=== PATIENT | female | born 1965 | race Caucasian/White ===

== ENCOUNTER 2017-01-27 08:28 | Inpatient (IN) | payer MEDICAID ==
[~2017-01-27] VITALS: Ht 175.3 cm; Wt 100.1 kg
[~2017-01-27 08:28] MED LIST: DICY10CA13 PO; LACT4500 PO; LOMO PO; PRIL20CA PO; Z.0.COMMODE-3:1; Z.0.WHEELELR
[2017-01-27 08:35] VITALS: BP 142/83; PULSE 100; RESP 24; TEMP 97.8; O2SAT 97
[2017-01-27] MEDS ORDERED: SODIUM CHLOR 0.9% 1000 ML INJ 1,000 ML IV SCH ×2 (08:40→10:25)
[2017-01-27] MEDS ORDERED: KETOROLAC TROMETHAMINE 30 MG/ML (IVP) VIAL IVP ONE (08:45)
[2017-01-27] MEDS ORDERED: SODIUM CHLORIDE 0.9% FLUSH 5 ML FLUSH IVF PRN (08:45)
[2017-01-27] MEDS ORDERED: ONDANSETRON HCL 4 MG/2 ML VIAL IVP ONE (08:45)
--- NOTE | 2017-01-27 08:50 | PD ---
HPI Chief Complaint: Abdominal pain Time Seen by Provider: 08:50 Travel History International Travel<30 days: No (unknown) Contact w/Intl Traveler<30days: No (unknown) History of Present Illness HPI 51yo F with PMH of gastroparesis, DM, osteomyelitis of left foot s/p amputation , CKD stage IV, GERD, depression presents to the ED with c/o abdominal pain for 3 days. Pain started off as cramping and is generalized. Pt took her friend's tramadol yesterday and it relieved her pain. +NBNB vomiting. Pt states she has chronic diarrhea. +Chills. Denies any chest pain, sob, urinary complaints , vaginal bleeding or discharge. PFSH Past Medical History Anemia: Yes (IRON DEFICIENCY) Arthritis: Yes Asthma: Yes Anxiety: Yes Depression: Yes Cancer: No Cardiovascular Problems: No Diabetes: Yes Diminished Hearing: No Gastrointestinal Disorders: Yes (gastroparesis) GERD: Yes Gout: Yes Headaches: Yes Immune Disorder: No Kidney Stones: Yes Musculoskeletal: Yes Neurologic: Yes (NEUROPATHY) Psychiatric: Yes ("i have mental problems but I don't know what they are") Respiratory: Yes (ASTHMA, HX PNEUMONIA) Migraines: Yes Pneumonia: Yes Seizures: No Sickle Cell Disease: No Menopausal: Yes Past Surgical History AICD: No Arteriovenous Shunt: No Genitourinary Surgery: Yes (LITHOTRIPSY) Insulin Pump: No Joint Replacement: No Oral Surgery: Yes (TONSILLECTOMY) Pacemaker: No Tonsillectomy: Yes Other Surgery: Yes (right great toe/ left foot great toe and second toe amputation) Social History Alcohol Use: No Tobacco Use: No Substance Use: No Allergies-Medications (Allergen,Severity, Reaction): Coded Allergies: Sinequan (Verified Allergy, Severe, HIVES, 09/05/14) Codeine (Verified Adverse Reaction, Severe, NAUSEA/VOMITING, 09/05/14) *MDRO Multi-Drug Resistant Organism (Unverified Adverse Reaction, Unknown , 09/05/14) MRSA Reported Meds & Prescriptions Reported Meds & Active Scripts Active Wheelchair Elevated Leg Rest ([id number]) Device 1 Unit Reported Benadryl Allergy (Diphenhydramine HCl) 25 Mg Cap Cimetidine 200 Mg Tab 200 Mg PO Lactaid (Lactase) 3,000 Unit Tab Review of Systems Except as stated in HPI: all other systems reviewed are Neg Physical Exam Narrative GENERAL: 51yo F not in acute distress. Morbidly obese. SKIN: Warm and dry. HEAD: Atraumatic. Normocephalic. EYES: Pupils equal and round. No scleral icterus. No injection or drainage. ENT: No nasal bleeding or discharge. Mucous membranes pink and moist. NECK: Trachea midline. No JVD. CARDIOVASCULAR: Regular rate and rhythm. No murmur appreciated. RESPIRATORY: No accessory muscle use. Clear to auscultation. Breath sounds equal bilaterally. GASTROINTESTINAL: Abdomen soft, +TTP epigastric region. No rebound tenderness or guarding. MUSCULOSKELETAL: No obvious deformities. No clubbing. No cyanosis. No edema. NEUROLOGICAL: Awake and alert. No obvious cranial nerve deficits. Motor grossly within normal limits. Normal speech. PSYCHIATRIC: Appropriate mood and affect; insight and judgment normal. Data Data Last Documented VS Vital Signs Date Time Temp Pulse Resp B/P Pulse Ox O2 Delivery O2 Flow Rate FiO2 01/27/17 08:35 97.8 100 24 142/83 97 Orders Complete Blood Count With Diff (01/27/17 08:40) Comprehensive Metabolic Panel (01/27/17 08:40) Lipase (01/27/17 08:40) Lactic Acid (01/27/17 08:40) Prothrombin Time / Inr (Pt) (01/27/17 08:40) Act Partial Throm Time (Ptt) (01/27/17 08:40) Urinalysis - C+S If Indicated (01/27/17 08:40) Ct Abd/Pel W/O Iv Contrast (01/27/17 08:40) Iv Access Insert/Monitor (01/27/17 08:40) Ecg Monitoring (01/27/17 08:40) Oximetry (01/27/17 08:40) Ondansetron Inj (Zofran Inj) (01/27/17 08:45) Sodium Chlor 0.9% 1000 Ml Inj (Ns 1000 M (01/27/17 08:40) Sodium Chloride 0.9% Flush (Ns Flush) (01/27/17 08:45) Electrocardiogram (01/27/17 08:40) Ketorolac Inj (Toradol Inj) (01/27/17 08:45) Ed Urine Pregnancytest Poc (01/27/17 08:40) Bhcg Screen Qualitative (01/27/17 08:40) Troponin I (01/27/17 08:45) Admit Order (Ed Use Only) (01/27/17 10:17) Consult Nephrology (01/27/17 ) Labs Laboratory Tests Test 01/27/17 01/27/17 08:45 10:00 White Blood Count 10.2 TH/MM3 Red Blood Count 4.77 MIL/MM3 Hemoglobin 12.9 GM/DL Hematocrit 39.4 % Mean Corpuscular Volume 82.7 FL Mean Corpuscular Hemoglobin 27.1 PG Mean Corpuscular Hemoglobin 32.8 % Concent Red Cell Distribution Width 15.1 % Platelet Count 256 TH/MM3 Mean Platelet Volume 10.1 FL Neutrophils (%) (Auto) 80.3 % Lymphocytes (%) (Auto) 13.7 % Monocytes (%) (Auto) 5.4 % Eosinophils (%) (Auto) 0.1 % Basophils (%) (Auto) 0.5 % Neutrophils # (Auto) 8.2 TH/MM3 Lymphocytes # (Auto) 1.4 TH/MM3 Monocytes # (Auto) 0.5 TH/MM3 Eosinophils # (Auto) 0.0 TH/MM3 Basophils # (Auto) 0.1 TH/MM3 CBC Comment DIFF FINAL Differential Comment Prothrombin Time 11.7 SEC Prothromb Time International 1.1 RATIO Ratio Activated Partial 24.3 SEC Thromboplast Time Sodium Level 134 MEQ/L Potassium Level 4.4 MEQ/L Chloride Level 92 MEQ/L Carbon Dioxide Level 24.0 MEQ/L Anion Gap 18 MEQ/L Blood Urea Nitrogen 57 MG/DL Creatinine 6.82 MG/DL Estimat Glomerular Filtration 6 ML/MIN Rate Random Glucose 137 MG/DL Lactic Acid Level 4.8 mmol/L Calcium Level 8.5 MG/DL Total Bilirubin 0.7 MG/DL Aspartate Amino Transf 14 U/L (AST/SGOT) Alanine Aminotransferase 13 U/L (ALT/SGPT) Alkaline Phosphatase 113 U/L Troponin I LESS THAN 0.02 NG/ML Total Protein 9.9 GM/DL Albumin 3.9 GM/DL Lipase 207 U/L Beta HCG, Qualitative 2 MIU/ML Urine Color YELLOW Urine Turbidity CLOUDY Urine pH 6.0 Urine Specific [place] 1.018 Urine Protein 300 mg/dL Urine Glucose (UA) NEG mg/dL Urine Ketones NEG mg/dL Urine Occult Blood SMALL Urine Nitrite NEG Urine Bilirubin NEG Urine Urobilinogen 2.0 MG/DL Urine Leukocyte Esterase LARGE Urine RBC 42 /hpf Urine WBC /hpf Urine WBC Clumps MANY Urine Squamous Epithelial 5 /hpf Cells Urine Bacteria MANY /hpf Microscopic Urinalysis Comment CATH-CULTURE IND MDM Medical Decision Making Medical Screen Exam Complete: Yes Emergency Medical Condition: Yes Interpretation(s) EKG: NSR 93bpm. LAD. TWI aVL. Pt with 1mm ST elevation in the inferior leads , II, III, aVF. No reciprocal changes. No chest pain. Differential Diagnosis Gastroenteritis vs. pancreatitis vs. gastritis Narrative Course 51yo female with abdominal pain, vomiting for a few days. Labs reviewed, no leukocytosis. Neutrophil 80.3%. BUN/creatinine is elevated at 57/6.82. Pt had CKD disease from the note in 2013 but creatinine was 2.08 in 2013. Pt states she is still urinating fine. States she has not seen a weatherization installer or follow up with primary care for a long time. Lactic acid is elevated at 4.8. Pt denies any metformin use and does not take anything for diabetes. Pt has received 1 liter of NS IVF. Elevated lactate secondary to sepsis is also in the differential. UA positive for leukocyte, given ceftriaxone. There are EKG changes concerning for ischemia but does not meet STEMI criteria. Troponin negative. Pt has no chest pain. Will trend with serial EKG, cardiac enzyme. Pt reevaluated at bedside. Pt given zofran and toradol and abdominal pain has resolved. Abdomen is soft, obese. States that if I press really hard, it hurts but not tender on light palpation. No rebound tenderness or guarding. Discussed with resident physicians and admitted to their service. CTa/p significant for gallstone ileus with obstruction. Upon further questioning, pt had last had bowel movement 3-4 days ago. Last vomiting was 3am today and is having flatus. Pt had last ate/drank yesterday morning. Discussed with Dr. Bridges who will come evaluate the patient. Also informed resident physician. Critical Care Narrative Aggregate critical care time was 50 minutes. Time to perform other separately billable procedures was not included in the critical care time. My time did not include minutes spent treating any other patients simultaneously or on activities that did not directly contribute to the patient's treatment. The services I provided to this patient were to treat and/or prevent clinically significant deterioration that could result in: cardiovascular collapse or . I provided critical care services requiring my management, as noted below: Chart data review, documentation time, medication orders and management, vital sign assessments/reviewing monitor data, ordering and reviewing lab tests, ordering and interpreting/reviewing x-rays and diagnostic studies, care of the patient and discussion of the patient with the admitting physicians. Diagnosis Primary Impression: Acute on chronic kidney failure Additional Impression: Gallstone ileus Admitting Information Admitting Physician Requests: Admit Megan Roach DO Jan 27, 2017 08:50 Megan Roach DO Jan 27, 2017 08:50
[2017-01-27] MEDS ORDERED: LACT3000 (08:55)
[2017-01-27] MEDS ORDERED: CIME200T PO (08:56)
[2017-01-27] MEDS ORDERED: BENA25CA4 (08:58)
[2017-01-27 09:00] LABS: AUTOMATED NEUTROPHIL # 8.2 TH/MM3 (1.8-7.7); BASOPHIL # 0.1 TH/MM3 (0-0.2); BASOPHIL % 0.5 % (0.0-2.0); EOSINOPHIL % 0.1 % (0.0-4.0); HEMATOCRIT 39.4 % (35.0-46.0); HEMO FLAGS DIFF FINAL; LYMPH % 13.7 % (9.0-44.0); LYMPHOCYTE # 1.4 TH/MM3 (1.0-4.8); MEAN CELL VOLUME 82.7 FL (80.0-100.0); MEAN CORPUSCULAR HEMOGLOBIN 27.1 PG (27.0-34.0); MEAN CORPUSCULAR HGB CONC 32.8 % (32.0-36.0); MONO % 5.4 % (0.0-8.0); NEUT % 80.3 % (16.0-70.0); PLATELET COUNT 256 TH/MM3 (150-450); RED BLOOD COUNT 4.77 MIL/MM3 (4.00-5.30); RED CELL DISTRIBUTION WIDTH 15.1 % (11.6-17.2); WHITE BLOOD COUNT 10.2 TH/MM3 (4.0-11.0)
[2017-01-27 09:14] LABS: APTT (PATIENT) 24.3 SEC (24.3-30.1); INTERNATIONAL NORMALIZED RATIO 1.1 RATIO; PROTHROMBIN TIME - PATIENT 11.7 SEC (9.8-11.6)
[2017-01-27 09:20] LABS: ANION GAP 18 MEQ/L (5-15); AST (GOT) 14 U/L (15-37); BLOOD UREA NITROGEN 57 MG/DL (7-18); CHLORIDE 92 MEQ/L (98-107); GLOMERULAR FILTRATION RATE 6 ML/MIN (>89); POTASSIUM 4.4 MEQ/L (3.5-5.1); SODIUM (NA) 134 MEQ/L (136-145)
[2017-01-27 09:25] LABS: ALKALINE PHOSPHATASE 113 U/L (45-117); ALT (GPT) 13 U/L (10-53); TOTAL BILIRUBIN ADULT 0.7 MG/DL (0.2-1.0)
[2017-01-27 09:28] LABS: BHCG SCREEN QUALITATIVE 2 MIU/ML (0-5)
[2017-01-27 10:28] LABS: BACTERIA, URINE MANY /hpf; BLOOD, URINE SMALL (NEG); COMMENT (UR) CATH-CULTURE IND; CULTURE IF INDICATED CATH CULTURE IND; GLUCOSE,URINE NEG (NEG); KETONE, URINE NEG (NEG); NITRITE,URINE NEG (NEG); SQUAMOUS EPITHELIAL CELL URINE 5 /hpf (0-5); URINE COLOR YELLOW (YELLW/STRAW)
[2017-01-27] MEDS ORDERED: METOCLOPRAMIDE HCL 10 MG/2 ML VIAL IV PUSH PRN (10:30)
[2017-01-27] MEDS ORDERED: ACETAMINOPHEN 325 MG TAB PO PRN (10:30)
[2017-01-27] MEDS ORDERED: NALOXONE HCL 0.4 MG/ML AMP IV PRN ×2 (10:30→11:00)
[2017-01-27] MEDS: HEPARIN SODIUM - SQ 10,000 UNITS/ML VIAL SQ SCH (10:30)
--- NOTE | 2017-01-27 10:31 | HHI.HP ---
HPI Service Family Medicine Primary Care Physician No Primary Care Physician Admission Diagnosis Acute on chronic kidney failure, lactic acidosis Diagnoses: International Travel<30 Days: No Contact w/Intl Traveler<30days: No Known Affected Area: No History of Present Illness Ms. Marie is a 51 y/o CF with a PMHx of T2DM, CKD, and osteomyelitis s/p L forefoot amputations presenting with 2 days of ABD pain and vomiting. She states that she has had 4-5 episodes of vomiting over each of the last 2 days. She describes the emesis as bilious without food particles or blood. She also endorses crampy, widespread abdominal pain lasting over these last 2 days which she attributes to constantly vomiting. She also states that she's had nausea with intermittent fever and chills, but has not taken her temperature. She states that she has not had much to eat over the last couple of days, but has been drinking appropriately. She does state that her roommate has had similar symptoms within the last week. Otherwise she has no complaints and denies any chest pain, shortness of breath, or calf tenderness. Of note, she currently does not take any medications for her DM. She states that she does check her BG daily and has been running 110-150 which is elevated from her baseline according to her. She is aware that she has CKD, but does not see a management coordinator. She denies any recent NSAID use or any OTC medications other than her prescribed Cimetidine. (Alli Chaparro MD R1) Review of Systems Constitutional: COMPLAINS OF: Fever, Chills Endocrine: DENIES: Polyuria Eyes: DENIES: Blurred vision Ears, nose, mouth, throat: DENIES: Throat pain Respiratory: DENIES: Cough, Shortness of breath Cardiovascular: DENIES: Chest pain, Palpitations Gastrointestinal: COMPLAINS OF: Abdominal pain, Diarrhea (Baseline ), Nausea, Vomiting Genitourinary: DENIES: Dysuria Musculoskeletal: DENIES: Joint pain Integumentary: DENIES: Rash Hematologic/lymphatic: DENIES: Lymphadenopathy Immunologic/allergic: DENIES: Urticaria Neurologic: DENIES: Headache (Alli Chaparro MD R1) Past Family Social History Past Medical History Gastroparesis Type 2 DM Osteomyelitis of L foot s/p amputation CKD stage 4 GERD Depression Iron deficiency anemia Asthma Unknown behavioral problems Migraines Kidney stones Past Surgical History Lithotripsy Tonsillectomy L forefoot amputation (Alli Chaparro MD R1) Allergies: Coded Allergies: Sinequan (Verified Allergy, Severe, HIVES, 09/05/14) Codeine (Verified Adverse Reaction, Severe, NAUSEA/VOMITING, 09/05/14) *MDRO Multi-Drug Resistant Organism (Unverified Adverse Reaction, Unknown , 09/05/14) MRSA Family History Mom - arrhythmia Father - Bladder cancer Brother - healthy Social History Lives in [place] with mother and friend. On disability for health condition. Smoke - Denies Alcohol - Denies Illicit - Denies Full Code (Alli Chaparro MD R1) Physical Exam Vital Signs Vital Signs Date Time Temp Pulse Resp B/P Pulse Ox O2 Delivery O2 Flow Rate FiO2 01/27/17 08:35 97.8 100 24 142/83 97 Physical Exam GENERAL: 51 y/o obese CF lying in bed in NAD SKIN: Patches of ilia under pannus flaps. Multiple scratches on back and LE. No rashes or ecchymosis. HEENT: Atraumatic, normocephalic with EOMI. PERRLA. Oropharynx clear without exudate or erythema. Mucus membranes dry. No LAD. Trachea midline without thyromegaly. No rhinorrhea. CARDIOVASCULAR: Regular rate and rhythm without murmurs, gallops, or rubs. RESPIRATORY: CTAB with no CRW. No increased WOB. GASTROINTESTINAL: Abdomen soft, mildly distended with tenderness to palpation in all 4 quadrants. No rebound tenderness/guarding. Hypoactive bowel sounds. MUSCULOSKELETAL: Extremities without cyanosis or edema. No calf tenderness. L foot with forefoot amputation, stump CDI. 2+ pulses in all 4 ext. NEUROLOGICAL: Awake and alert. Normal speech. Laboratory Laboratory Tests Test 01/27/17 08:45 White Blood Count 10.2 Red Blood Count 4.77 Hemoglobin 12.9 Hematocrit 39.4 Mean Corpuscular Volume 82.7 Mean Corpuscular Hemoglobin 27.1 Mean Corpuscular Hemoglobin 32.8 Concent Red Cell Distribution Width 15.1 Platelet Count 256 Mean Platelet Volume 10.1 Neutrophils (%) (Auto) 80.3 Lymphocytes (%) (Auto) 13.7 Monocytes (%) (Auto) 5.4 Eosinophils (%) (Auto) 0.1 Basophils (%) (Auto) 0.5 Neutrophils # (Auto) 8.2 Lymphocytes # (Auto) 1.4 Monocytes # (Auto) 0.5 Eosinophils # (Auto) 0.0 Basophils # (Auto) 0.1 CBC Comment DIFF FINAL Differential Comment Prothrombin Time 11.7 Prothromb Time International 1.1 Ratio Activated Partial 24.3 Thromboplast Time Sodium Level 134 Potassium Level 4.4 Chloride Level 92 Carbon Dioxide Level 24.0 Anion Gap 18 Blood Urea Nitrogen 57 Creatinine 6.82 Estimat Glomerular Filtration 6 Rate Random Glucose 137 Lactic Acid Level 4.8 Calcium Level 8.5 Total Bilirubin 0.7 Aspartate Amino Transf 14 (AST/SGOT) Alanine Aminotransferase 13 (ALT/SGPT) Alkaline Phosphatase 113 Troponin I LESS THAN 0.02 Total Protein 9.9 Albumin 3.9 Lipase 207 Beta HCG, Qualitative 2 (Alli Chaparro MD R1) Result Diagram: 01/27/1784401/27/17844 Assessment and Plan Assessment and Plan Ms. Marie is a 51 y/o CF with a PMHx of T2DM, CKD, and osteomyelitis s/p L forefoot amputations presenting with 2 days of ABD pain and vomiting. She will be admitted for gallstone ileus, acute on chronic kidney disease, and L renal stone. Code Status FULL Discussed Condition With Dr. Roach, ER physician Dr. Duane Aguilar (Alli Chaparro MD R1) Attending Attestation Patient seen and examined. Case reviewed and discussed with the resident team. Agree with plan of care as discussed with me and documented in the resident note. pt seen in ED, appreciate help Nephrology and Surgery (Angelique Zepeda MD) Problem List: (1) Gallstone ileus Status: Acute Plan: Patient will 2 days of bilious vomiting and subjective fever/chills found to have gallstone ileus on CT exam. Per discussion with Dr. Roach, ER physician, she will consult general surgery for possible procedure. CT: Probable gallstone ileus. Status post seen on series 304, image 42. Nonobstructing left renal stone and very small kidney. There is a small amount of air in the collecting system of the L kidney. Lactic acid of 4.8 with no leukocytosis and subjective fevers -Tbili 0.7 Consult General Surgery: Appreciate recommendations, patient made NPO and Heparin held. Medications: Toradol 30 mg given once in ER Tylenol 650 mg for pain 1-2 Eagar 5 mg for pain 3-5 Eagar 10 mg for pain 6-10 Reglan 2.5 mg every 6 hours when necessary for nausea or vomiting (2) Acute on chronic kidney failure Status: Acute Plan: Patient with stage IV kidney disease currently not seen by nephrology and not on hemodialysis. Per chart review patient's last creatinine baseline in 2013 ranges from 1.84 - 2.3. CMP on admission: BUN 57, creatinine 6.8 to, GFR 6 Lactic acid 4.8 UA: Protein 300, small occult blood, large leukocyte esterase, 42 RBC, many WBC climps, many bacteria Nephrology consulted: Appreciate recommendations Medications: Normal saline 125 mL per hour (3) Kidney stone on left side Status: Acute Plan: Patient with history of renal stones found to have small left renal stone on CT. Renal ultrasound: Pending Please see plan as above (4) Abnormal finding on EKG Status: Acute Plan: Patient found to have Q waves on EKG. Patient is currently asymptomatic and denies any recent chest pain, palpitations, or SOB. Medical team will proceed with ACS rule out. Troponin: <0.02, x2 pending (1200, 1500) EKG: L axis deviation with Q waves per Medical Team read. Repeat 2 pending ( 1200, 1500) Telemetry Echo: Pending (5) Ilia infection Status: Acute Plan: Patient found to have Ilia infection on pannus folds and anal region Topical nystatin to be applied to infected areas every 8 hours (6) Diabetes mellitus Status: Chronic Plan: Patient with history of diabetes mellitus. States her baseline BG is 110 to 150s and is currently not on any medication. Scale insulin per protocol (7) Asthma Status: Chronic Plan: Patient with history of asthma Albuterol 2.5 mg every 2 hours when necessary for shortness of breath or wheezing (8) Nutrition, metabolism, and development symptoms Status: Acute Plan: Fluids: NS at 125ml/hr Electrolytes: Sodium 134, Glucose 137, continue to monitor Diet: NPO in preparation for possible procedure today GI prophylaxis: Protonix, held home Cimetidine and Lactase DVT prophylaxis: Heparin held for possible procedure today HTN: Vasotec PRN (Alli Chaparro MD R1) Physician Certification 2 Midnight Certification Type: Admission for Inpatient Services Order for Inpatient Services The services are ordered in accordance with Medicare regulations or non- Medicare payer requirements, as applicable. In the case of services not specified as inpatient-only, they are appropriately provided as inpatient services in accordance with the 2-midnight benchmark. Estimated LOS (days): 3 3 days is the estimated time the patient will need to remain in the hospital, assuming treatment plan goals are met and no additional complications. Post-Hospital Plan: Home (Alli Chaparro MD R1) Problem Qualifiers (1) Diabetes mellitus: Qualified Code: E11.620 - Type 2 diabetes mellitus with diabetic dermatitis, without long-term current use of insulin (2) Asthma: Qualified Code: J45.909 - Uncomplicated asthma, unspecified asthma severity Alli Chaparro MD R1 Jan 27, 2017 10:31 Angelique Zepeda MD Jan 28, 2017 16:04
[2017-01-27] MEDS ORDERED: GLUCAGON 1 MG/ML VIAL OTHER PRN (10:45)
[2017-01-27] MEDS ORDERED: DEXTROSE 50% IN WATER 50 ML VIAL(D50) IV PUSH PRN (10:45)
[2017-01-27] MEDS ORDERED: cefTRIAXone INJ 1,000 MG in SODIUM CHLORIDE 0.9% INJ 100 ML IV ONE (11:00)
[2017-01-27] MEDS: INSULIN ASPART SUPPLEMENTAL SCALE SQ SCH ×3 (11:00→21:00)
[2017-01-27] MEDS ORDERED: RESP: ALBUTEROL 2.5 MG/3 ML NEB (PRN) NEB (11:00)
--- NOTE | 2017-01-27 11:42 | RADRPT ---
EXAM DATE/TIME: 01/27/2017 10:15 [facility] COMPARISON: No previous studies available for comparison. INDICATIONS: Epigastric abdominal pain with vomiting. ORAL CONTRAST: No oral contrast ingested. RADIATION DOSE: 36.06 CTDIvol (mGy) MEDICAL HISTORY: Gastroparesis. Gastroesophageal reflux disease. Renal calculi. Diabetes. Asthma. SURGICAL HISTORY: Lithotripsy. ENCOUNTER: Initial ACUITY: 3 days PAIN SCALE: 6/10 LOCATION: Upper quadrant TECHNIQUE: Volumetric scanning of the abdomen and pelvis was performed. Using automated exposure control and ad justment of the mA and/or kV according to patient size, radiation dose was kept as low as reasonably achievable to obtain optimal diagnostic quality images. FINDINGS: Lung bases are clear. There is minimal air in the biliary tree. Patient has had a previous sphincte rotomy, this is a normal finding. The stomach is distended with a large air fluid level present. Spleen is unremarkable. Kidneys are small and shrunken. There is dilatation of proximal small bowel when compared to distal. There is a calcification in the mid small bowel at zone of transition. This probably represents a gallstone ileus which would account for the patient's are in the biliary tree and gallbladder which is decompressed. There is a non-obstructing calculus in the small left kidney with a small amount of air in the collec ting system. Pelvic contents are unremarkable. CONCLUSION: 1. Probable gallstone ileus. Stone is best seen on series 304, image 42. 2. Non-obstructing left renal stone in very small kidney. There is a small amount of air in the col lecting system of the left kidney. David Brooke MD FACR on January 27, 2017 at 11:09 Board Certified Radiologist. This report was verified electronically.
[2017-01-27] MEDS ORDERED: ACETAMINOPHEN/HYDROcodone 325 MG/5 MG TAB PO PRN (12:00)
[2017-01-27 12:56] LABS: CREATINE KINASE 257 U/L (26-192)
[2017-01-27 13:09] LABS: CKMB 3.6 NG/ML (0.5-3.6)
--- NOTE | 2017-01-27 13:16 | RADRPT ---
EXAM DATE/TIME: 01/27/2017 12:08 [facility] COMPARISON: CT ABDOMEN & PELVIS W/O CONTRAST, January 27, 2017, 10:15. US KIDNEY/RENAL/BLADDER, June 06, 2014, 10: 27. INDICATIONS : Increased BUN/Creatinine, abnormal CT. MEDICAL HISTORY : Hypertension. Thyroid disease. Neuropathy. Migraine. Gastroparesis. GERD. Diabetes. SURGICAL HISTORY : Tonsillectomy. Toes amuptated, left foot. Lithotripsy. ENCOUNTER: Initial ACUITY: 1 day PAIN SCORE: 0/10 LOCATION: Bilateral flank MEASUREMENTS: RIGHT KIDNEY: 9.1 x 4.1 x 4.0 cm LEFT KIDNEY: 9.3 x 5.1 x 4.8 cm FINDINGS: RIGHT KIDNEY: Renal cortex is normal in thickness and increased echotexture. No hydronephrosis, stone, or mass. LEFT KIDNEY: Renal cortex is normal in thickness and increased echotexture. Echogenic shadowing focus lower pole l eft kidney measures 21 x 8 x 19 mm. No hydronephrosis or mass. BLADDER: Bladder not visualized. Many dilated bowel loops and shadowing obscures bladder. CONCLUSION: 1. Echogenic kidneys which can be seen with medical renal disease. 2. Nonobstructing calculus measures 2.1 cm in the lower pole left kidney. 3. Nonvisualization of the bladder. There is air in the bladder on most recent CT scan of the abdomen /pelvis. This could be infectious and likely the main reason cannot visualize bladder. Anselmo Shelton MD on January 27, 2017 at 13:05 Board Certified Radiologist. This report was verified electronically.
[2017-01-27] MEDS ORDERED: ENALAPRILAT 1.25 MG/ML VIAL IV PRN (13:45)
[2017-01-27] MEDS: NYSTATIN 100,000 U/GM PWD 15 GM BTL TOPICAL SCH ×2 (14:00→21:50)
[2017-01-27] MEDS: DEXT 5%-NACL 0.45% 1000 ML INJ 1,000 ML IV SCH ×2 (14:10→21:47)
--- NOTE | 2017-01-27 14:13 | PD.CONS ---
cc: Eduardo Bridges MD HPI Service General Surgery Consult Requested By Dr. Roach Reason for Consult Severe abdominal pain; GS ileus visualized on CT scan Primary Care Physician No Primary Care Physician History of Present Illness This is a 51 year old male with a past medical history of type 2 diabetes mellitus, chronic kidney disease stage IV, osteomyelitis, gastroparesis, and GERD. She comes in the emergency room for evaluation after having abdominal pain for 2 days, cramping pain, constant, no alleviating, or exacerbating factors, 6/10 pain, currently 3/10, worse with movement with nausea and vomiting. Her last episode of vomiting was at 3 AM this morning. The patient reports that she has chronic diarrhea ever so often due to her gastroparesis. The patient reports her last bowel movement being 3 days ago which was normal for her. She states during the exam that she is feeling nauseous because she has not eaten. Her last meal was yesterday morning. A CAT scan was obtained which showed a gallstone ileus. She reports she has never had problems with her gallbladder or any dietary intolerance. A general surgery consultation was requested to evaluate for gallstone ileus. Review of Systems Constitutional: DENIES: Fatigue, Fever, Weight gain Endocrine: DENIES: Heat/cold intolerance Eyes: DENIES: Diplopia, Eye inflammation, Eye pain Ears, nose, mouth, throat: DENIES: Hearing loss, Vertigo Respiratory: DENIES: Apneas, Cough, Snoring Cardiovascular: DENIES: Chest pain, Palpitations Gastrointestinal: COMPLAINS OF: Abdominal pain, Diarrhea Genitourinary: DENIES: Urinary frequency, Urinary incontinence, Urgency Musculoskeletal: DENIES: Muscle aches, Stiffness Integumentary: DENIES: Abnormal pigmentation Hematologic/lymphatic: DENIES: Bruising Immunologic/allergic: DENIES: Eczema Neurologic: DENIES: Headache, Localized weakness Psychiatric: DENIES: Depression, Hallucinations, Agitation Past Family Social History Past Medical History Type 2 diabetes mellitus Chronic kidney disease stage IV Osteomyelitis Gastroparesis GERD Past Surgical History Left midfoot amputation Reported Medications See chart Allergies: Coded Allergies: Sinequan (Verified Allergy, Severe, HIVES, 09/05/14) Codeine (Verified Adverse Reaction, Severe, NAUSEA/VOMITING, 09/05/14) *MDRO Multi-Drug Resistant Organism (Unverified Adverse Reaction, Unknown , 02/02/17) MRSA (foot) - 06/29/11, 08/04/11 MRSA PCR Screens NEGATIVE - 01/30/17 & 02/01/17 CLEARED BY INFECTION CONTROL Active Ordered Medications Current Medications Medications (Trade) Dose Ordered Sig/Jaylen Route Start Time Stop Time Status Last Admin (NS Flush) 2 ml UNSCH PRN FLUSH 01/27/17 10:30 (NS Flush) 2 ml BID FLUSH 01/27/17 21:00 (Reglan Inj) 2.5 mg Q6H PRN IV PUSH 01/27/17 10:30 (Heparin Inj) 5,000 units Q8H SQ 01/27/17 10:30 Hold (Tylenol) 650 mg Q6H PRN PO 01/27/17 10:30 (D50w (Vial) Inj) 25 ml UNSCH PRN IV PUSH 01/27/17 10:45 (Glucagon Inj) 1 mg UNSCH PRN OTHER 01/27/17 10:45 ([place] 5-325 Mg) 1 tab Q4H PRN PO 01/27/17 12:00 ([place] 10-325 Mg) 1 tab Q4H PRN PO 01/27/17 12:00 (Narcan Inj) 0.4 mg UNSCH PRN IV 01/27/17 11:00 Nystatin 1 applic 1 applic Q8HR TOPICAL 01/27/17 14:00 (D5W-1/2 NS 1000 ml Inj) 1,000 ml @ 125 mls/hr Q8H IV 01/27/17 13:30 (Vasotec Inj) 1.25 mg Q6H PRN IV 01/27/17 13:45 (Protonix Inj) 40 mg Q24H IV PUSH 01/27/17 14:00 Family History Noncontributory Social History Denies smoking Denies EtOH use Denies illicit drug use Physical Exam Vital Signs Vital Signs Date Time Temp Pulse Resp B/P Pulse Ox O2 Delivery O2 Flow Rate FiO2 01/27/17 08:35 97.8 100 24 142/83 97 Physical Exam GENERAL: Obese female resting in bed in no acute distress SKIN: Warm and dry. HEAD: Atraumatic. Normocephalic. EYES: Pupils equal and round. No scleral icterus. No injection or drainage. ENT: No nasal bleeding or discharge. Mucous membranes pink and moist. NECK: Trachea midline. CARDIOVASCULAR: Regular rate and rhythm. RESPIRATORY: No accessory muscle use. Clear to auscultation. Breath sounds equal bilaterally. GASTROINTESTINAL: Abdomen soft, mildly distended; tender with palpation at epigastric region and RUQ. MUSCULOSKELETAL: Extremities without clubbing, cyanosis, or edema. No obvious deformities. LEFT midfoot amputation. NEUROLOGICAL: Awake and alert. No obvious cranial nerve deficits. Motor grossly within normal limits. Five out of 5 muscle strength in the arms and legs. Normal speech. PSYCHIATRIC: Appropriate mood and affect; insight and judgment normal. Laboratory Laboratory Tests Test 01/27/17 01/27/17 01/27/17 08:45 10:00 12:07 White Blood Count 10.2 Red Blood Count 4.77 Hemoglobin 12.9 Hematocrit 39.4 Mean Corpuscular Volume 82.7 Mean Corpuscular Hemoglobin 27.1 Mean Corpuscular Hemoglobin 32.8 Concent Red Cell Distribution Width 15.1 Platelet Count 256 Mean Platelet Volume 10.1 Neutrophils (%) (Auto) 80.3 Lymphocytes (%) (Auto) 13.7 Monocytes (%) (Auto) 5.4 Eosinophils (%) (Auto) 0.1 Basophils (%) (Auto) 0.5 Neutrophils # (Auto) 8.2 Lymphocytes # (Auto) 1.4 Monocytes # (Auto) 0.5 Eosinophils # (Auto) 0.0 Basophils # (Auto) 0.1 CBC Comment DIFF FINAL Differential Comment Prothrombin Time 11.7 Prothromb Time International 1.1 Ratio Activated Partial 24.3 Thromboplast Time Sodium Level 134 Potassium Level 4.4 Chloride Level 92 Carbon Dioxide Level 24.0 Anion Gap 18 Blood Urea Nitrogen 57 Creatinine 6.82 Estimat Glomerular Filtration 6 Rate Random Glucose 137 Lactic Acid Level 4.8 Calcium Level 8.5 Total Bilirubin 0.7 Aspartate Amino Transf 14 (AST/SGOT) Alanine Aminotransferase 13 (ALT/SGPT) Alkaline Phosphatase 113 Troponin I LESS THAN 0.02 LESS THAN 0.02 Total Protein 9.9 Albumin 3.9 Lipase 207 Beta HCG, Qualitative 2 Urine Color YELLOW Urine Turbidity CLOUDY Urine pH 6.0 Urine Specific [place] 1.018 Urine Protein 300 Urine Glucose (UA) NEG Urine Ketones NEG Urine Occult Blood SMALL Urine Nitrite NEG Urine Bilirubin NEG Urine Urobilinogen 2.0 Urine Leukocyte Esterase LARGE Urine RBC 42 Urine WBC Urine WBC Clumps MANY Urine Squamous Epithelial 5 Cells Urine Bacteria MANY Microscopic Urinalysis Comment CATH-CULTURE IND Total Creatine Kinase 257 Creatine Kinase MB 3.6 Creatine Kinase MB % 1.4 Date/Time Procedure Status Source Growth 01/27/17 10:00 Urine Culture Received Urine Catheterized Urine Pending Result Diagram: 02/05/17 0440 02/06/17 0413 Imaging Last 48 hours Impressions Renal Ultrasound 01/27/17 0000 Signed Impressions: Service Date/Time: Friday, January 27, 2017 12:08 - CONCLUSION: 1. Echogenic kidneys which can be seen with medical renal disease. 2. Nonobstructing calculus measures 2.1 cm in the lower pole left kidney. 3. Nonvisualization of the bladder. There is air in the bladder on most recent CT scan of the abdomen/pelvis. This could be infectious and likely the main reason cannot visualize bladder. Anselmo Shelton MD Assessment and Plan Assessment and Plan 51 year old female with an obstructing gallstone ileus -Remain NPO -Insert NGT to LIWS -Continue hydration with IV fluids -Nephrology following for evaluation of renal failure -Will stabilize patient and maximize patient's condition prior to surgery -The patient is in need of an operation but at this time needs to be maximized from a medical standpoint -Will tentatively plan for OR on Monday with Dr. Bridges -Discussed with Dr. Bridges, Dr. Zepeda and Dr. Coley at bedside -Thank you for allowing us to participate in Ms. Marie's care -General Surgery will follow along with you Discussed Condition With Dr. Cyrus Coley Ms. Marie Attending Statement pt seen at bedside gallstone ileus obstruction pt will need NG tube discussed the importance placed by me with 4 liters of output discussed the need for surgery as this will not improve on its own patient states understand of this will request medicine for medical optimization Attestation The exam, history, and the medical decision-making described in the above note were completed with the assistance of the mid-level provider. I reviewed and agree with the findings presented. I attest that I had a [id number] encounter with the patient on the same day, and personally performed and documented my assessment and findings in the medical record. Lashawn Crowe Jan 27, 2017 14:13 Eduardo Bridges MD Feb 07, 2017 05:38
--- NOTE | 2017-01-27 14:50 | PD.CONS ---
HPI Service Nephrology Consult Requested By Reason for Consult Acute on CKD Primary Care Physician No Primary Care Physician History of Present Illness This is a 51 y/o obese pt with a hx of DMII, gastroparesis, GERD, and osteomyelitis s/p L midfoot amputation. She presented with Nausea/vomiting and 2 days of ABD pain. She also states that she's had nausea with intermittent fever and chills, but has not taken her temperature. She states that she has not had much to eat over the last couple of days, but has been drinking appropriately. On arrival she is in renal failure with creatinine 6.82, BUN 57, GFR 6, Lactic acid 4.8. She denies hx of renal disorders, but looking back in 2013 she had CKD 4, Creatinine 2.08, GFR 26. She does not take any medications at home including OTC medications. CT showing gallstone ileus, she is to have surgery on Monday when more stable. No indication of hydronephrosis. She has strange behavior, refusing NG tube and gates catheter. She states she makes quite a bit of urine. She is a full code. We were consulted for renal management. (Angelique Sharp) Review of Systems Constitutional: COMPLAINS OF: Fatigue, DENIES: Fever Gastrointestinal: COMPLAINS OF: Abdominal pain, Nausea, Vomiting (Angelique Sharp) Past Family Social History Allergies: Coded Allergies: Sinequan (Verified Allergy, Severe, HIVES, 09/05/14) Codeine (Verified Adverse Reaction, Severe, NAUSEA/VOMITING, 09/05/14) *MDRO Multi-Drug Resistant Organism (Unverified Adverse Reaction, Unknown , 09/05/14) MRSA Past Medical History Gastroparesis Type 2 DM Osteomyelitis of L foot s/p amputation CKD stage 4 GERD Depression Iron deficiency anemia Asthma Unknown behavioral problems Migraines Kidney stones Past Surgical History Lithotripsy Tonsillectomy L forefoot amputation Reported Medications no home medications Active Ordered Medications Current Medications Medications (Trade) Dose Ordered Sig/Jaylen Route Start Time Stop Time Status Last Admin (NS Flush) 2 ml UNSCH PRN FLUSH 01/27/17 10:30 (NS Flush) 2 ml BID FLUSH 01/27/17 21:00 (Reglan Inj) 2.5 mg Q6H PRN IV PUSH 01/27/17 10:30 (Heparin Inj) 5,000 units Q8H SQ 01/27/17 10:30 Hold (Tylenol) 650 mg Q6H PRN PO 01/27/17 10:30 (D50w (Vial) Inj) 25 ml UNSCH PRN IV PUSH 01/27/17 10:45 (Glucagon Inj) 1 mg UNSCH PRN OTHER 01/27/17 10:45 ([place] 5-325 Mg) 1 tab Q4H PRN PO 01/27/17 12:00 ([place] 10-325 Mg) 1 tab Q4H PRN PO 01/27/17 12:00 (Narcan Inj) 0.4 mg UNSCH PRN IV 01/27/17 11:00 Nystatin 1 applic 1 applic Q8HR TOPICAL 01/27/17 14:00 (D5W-1/2 NS 1000 ml Inj) 1,000 ml @ 125 mls/hr Q8H IV 01/27/17 13:30 01/27/17 14:10 (Vasotec Inj) 1.25 mg Q6H PRN IV 01/27/17 13:45 (Protonix Inj) 40 mg Q24H IV PUSH 01/27/17 14:00 Family History no hx of renal disorders Social History lives with mother uses walker she is disabled no smoking hx no ETOH (Angelique Sharp) Physical Exam Vital Signs Vital Signs Date Time Temp Pulse Resp B/P Pulse Ox O2 Delivery O2 Flow Rate FiO2 01/27/17 08:35 97.8 100 24 142/83 97 Physical Exam obese female lying in bed, awake/alert S1/S2, regular rate/rhythm Lungs: clear but diminished in bases Abd: morbidly obese, non tender, hyperactive bowel sounds Ext: no edema , distal pulses normal Laboratory Laboratory Tests Test 01/27/17 01/27/17 01/27/17 08:45 10:00 12:07 White Blood Count 10.2 Red Blood Count 4.77 Hemoglobin 12.9 Hematocrit 39.4 Mean Corpuscular Volume 82.7 Mean Corpuscular Hemoglobin 27.1 Mean Corpuscular Hemoglobin 32.8 Concent Red Cell Distribution Width 15.1 Platelet Count 256 Mean Platelet Volume 10.1 Neutrophils (%) (Auto) 80.3 Lymphocytes (%) (Auto) 13.7 Monocytes (%) (Auto) 5.4 Eosinophils (%) (Auto) 0.1 Basophils (%) (Auto) 0.5 Neutrophils # (Auto) 8.2 Lymphocytes # (Auto) 1.4 Monocytes # (Auto) 0.5 Eosinophils # (Auto) 0.0 Basophils # (Auto) 0.1 CBC Comment DIFF FINAL Differential Comment Prothrombin Time 11.7 Prothromb Time International 1.1 Ratio Activated Partial 24.3 Thromboplast Time Sodium Level 134 Potassium Level 4.4 Chloride Level 92 Carbon Dioxide Level 24.0 Anion Gap 18 Blood Urea Nitrogen 57 Creatinine 6.82 Estimat Glomerular Filtration 6 Rate Random Glucose 137 Lactic Acid Level 4.8 Calcium Level 8.5 Total Bilirubin 0.7 Aspartate Amino Transf 14 (AST/SGOT) Alanine Aminotransferase 13 (ALT/SGPT) Alkaline Phosphatase 113 Troponin I LESS THAN 0.02 LESS THAN 0.02 Total Protein 9.9 Albumin 3.9 Lipase 207 Beta HCG, Qualitative 2 Urine Color YELLOW Urine Turbidity CLOUDY Urine pH 6.0 Urine Specific [place] 1.018 Urine Protein 300 Urine Glucose (UA) NEG Urine Ketones NEG Urine Occult Blood SMALL Urine Nitrite NEG Urine Bilirubin NEG Urine Urobilinogen 2.0 Urine Leukocyte Esterase LARGE Urine RBC 42 Urine WBC Urine WBC Clumps MANY Urine Squamous Epithelial 5 Cells Urine Bacteria MANY Microscopic Urinalysis Comment CATH-CULTURE IND Total Creatine Kinase 257 Creatine Kinase MB 3.6 Creatine Kinase MB % 1.4 Date/Time Procedure Status Source Growth 01/27/17 10:00 Urine Culture Received Urine Catheterized Urine Pending (Angelique Sharp) Result Diagram: 01/27/17 0845 01/27/17 0845 Imaging Last 72 hours Impressions Renal Ultrasound 01/27/17 0000 Signed Impressions: Service Date/Time: Friday, January 27, 2017 12:08 - CONCLUSION: 1. Echogenic kidneys which can be seen with medical renal disease. 2. Nonobstructing calculus measures 2.1 cm in the lower pole left kidney. 3. Nonvisualization of the bladder. There is air in the bladder on most recent CT scan of the abdomen/pelvis. This could be infectious and likely the main reason cannot visualize bladder. Anselmo Shelton MD (Angelique Sharp) Assessment and Plan Problem List: (1) Acute on chronic kidney failure Plan: it appears her baseline is from 2013 is CKD 4, GFR 26, Cr 2.08 Acute renal failure may be due to sepsis, renal hypoperfusion ; may have progressed to ATN possible UTI, culture in process she is not hyperkalemic i have asked for a gates to be placed for accurate I/O renal US ruled out obstruction at this time avoid potential nephrotoxins, she was given Toradol today which was stopped monitor urine output, if it drops she may require dialysis although she is adamantly refusing continue IVF (2) Diabetes mellitus Plan: insulin as needed monitor glucose (3) Gallstone ileus Plan: surgery consulted she refused NG tube (Angelique Sharp) Assessment and Plan patient was seen and examined. Appears to have underlying CKD due to diabetic nephropathy. She has proteinuria. Patient's renal function is poor. May have acute component due to intravascular volume depletion, also progressive decline in GFR to ESRD is a possibility. Plan: Continue IVF. Monitor urine output. Avoid nephrotoxic agents such as Toradol and other NSAIDs. May need dialysis if no improvement in renal function is seen. (Aneesh Rainey MD) Angelique Sharp Jan 27, 2017 14:50 Aneesh Rainey MD Jan 27, 2017 16:15
[2017-01-27 15:22] VITALS: BP 101/63; PULSE 96; RESP 17; TEMP 98.4; O2SAT 96
[2017-01-27 16:33] LABS: CREATINE KINASE 270 U/L (26-192)
[2017-01-27 16:45] LABS: CKMB 3.7 NG/ML (0.5-3.6)
[2017-01-27] MEDS: PANTOPRAZOLE SODIUM 40 MG VIAL IV PUSH SCH (17:38)
--- NOTE | 2017-01-27 19:00 | EC ---
Study Study Date:01/27/2017 STUDY CONCLUSIONS SUMMARY - Left ventricle: The cavity size was normal. Wall thickness was normal. Systolic function was normal. The estimated ejection fraction was in the range of 55% to 60%. Wall motion was normal; there were no regional wall motion abnormalities. - Mitral valve: Mild regurgitation. - Pericardium, extracardiac: There was a left pleural effusion. If LV function is below 40, please consider prescribing an ACEI or ARB or document rationale for non-use. PROCEDURE DATA STUDY STATUS: Elective. Procedure: Transthoracic echocardiography. Image quality was poor. Scanning was performed from the parasternal, apical, and subcostal acoustic windows. Study completion: The patient tolerated the procedure well. Transthoracic echocardiography. M-mode, complete 2D, complete spectral Doppler, and color Doppler. Patient status: Inpatient. CARDIAC ANATOMY LEFT VENTRICLE: The cavity size was normal. Wall thickness was normal. Systolic function was normal. The estimated ejection fraction was in the range of 55% to 60%. Wall motion was normal; there were no regional wall motion abnormalities. AORTIC VALVE: Trileaflet; normal thickness leaflets. Doppler: Transvalvular velocity was within the normal range. There was no stenosis. No regurgitation. AORTA: Aortic root: The aortic root was normal in size. MITRAL VALVE: Structurally normal valve. Doppler: Transvalvular velocity was within the normal range. There was no evidence for stenosis. Mild regurgitation. Peak gradient: 3mm Hg (D). LEFT ATRIUM: The atrium was normal in size. RIGHT VENTRICLE: The cavity size was normal. Wall thickness was normal. PULMONIC VALVE: Doppler: Transvalvular velocity was within the normal range. There was no evidence for stenosis. No regurgitation. TRICUSPID VALVE: Structurally normal valve. Doppler: Transvalvular velocity was within the normal range. No regurgitation. PULMONARY ARTERY: The main pulmonary artery was normal-sized. Systolic pressure was within the normal range. RIGHT ATRIUM: The atrium was normal in size. PERICARDIUM: There was no pericardial effusion. SYSTEMIC VEINS: Inferior vena cava: The vessel was normal in size. Pleura: There was a left pleural effusion. BASIC MEASUREMENTS ADULT Normal Left ventricle LV internal dimension, ED, chordal level, *38.9 mm 43-52 PLAX LV internal dimension, ES, chordal level, 30.7 mm 23-38 PLAX Fractional shortening, chordal level, PLAX *21 % >29 LV posterior wall thickness, ED 7.09 mm IVS/LVPW ratio, ED *1.44 <1.3 Ventricular septum Septal thickness, ED 10.2 mm Left atrium Anterior-posterior dimension 29 mm Right ventricle RV internal dimension, ED, PLAX 24.9 mm 19-38 DOPPLER MEASUREMENTS ADULT Normal Main pulmonary artery Pressure, S 21 mm Hg =30 Mitral valve Peak E-wave velocity 80 cm/s Peak A-wave velocity 95.3 cm/s Peak gradient, D 3 mm Hg Peak E/A ratio 0.8 Tricuspid valve Regurgitant peak velocity 122 cm/s Peak RV-RA gradient, S 6 mm Hg Maximal regurgitant velocity 122 cm/s Systemic veins Estimated CVP 10 mm Hg Right ventricle RV pressure, S 21 mm Hg <30 LEGEND: Mean values are shown as u=mean value. Asterisk (*) garcia values outside specified normal range. Prepared and signed by Inés Alvarenga [id number]
[2017-01-27 20:00] VITALS: BP 135/76
[2017-01-27 21:30] VITALS: BP 116/69; PULSE 91; RESP 20; TEMP 98; O2SAT 98
[2017-01-27] MEDS: SODIUM CHLORIDE 0.9% FLUSH 5 ML FLUSH FLUSH SCH (21:49)
--- NOTE | 2017-01-27 22:40 | EKG ---
Date Performed: 01/27/2017 Time Performed: 09:12:14 PTAGE: 51 years EKG: Sinus rhythm MARKED LEFT AXIS DEVIATION MODERATE VOLTAGE CRITERIA FOR LVH, CONSIDER NORMAL VARIANT ABNORMAL ECG PREVIOUS TRACING : 06/07/2014 07.41 DOCTOR: Lyssa Leslie Interpretating Date/Time 01/27/2017 22:39:25
[2017-01-27] MEDS ORDERED: LORazepam 2 MG/ML VIAL IV ONE (22:45)
[2017-01-28] VITALS: BP 106/63; PULSE 99; RESP 20; TEMP 97.8; O2SAT 93
[2017-01-28] MEDS: NYSTATIN 100,000 U/GM PWD 15 GM BTL TOPICAL SCH ×2 (05:59→12:19)
[2017-01-28] MEDS: DEXT 5%-NACL 0.45% 1000 ML INJ 1,000 ML IV SCH ×3 (05:59→20:40)
[2017-01-28] MEDS: INSULIN ASPART SUPPLEMENTAL SCALE SQ SCH ×4 (05:59→20:41)
[2017-01-28 06:09] LABS: AUTOMATED NEUTROPHIL # 4.2 TH/MM3 (1.8-7.7); BASOPHIL % 0.5 % (0.0-2.0); EOSINOPHIL # 0.3 TH/MM3 (0-0.4); EOSINOPHIL % 3.9 % (0.0-4.0); HEMATOCRIT 33.1 % (35.0-46.0); HEMO FLAGS DIFF FINAL; LYMPH % 27.5 % (9.0-44.0); LYMPHOCYTE # 1.9 TH/MM3 (1.0-4.8); MEAN CORPUSCULAR HEMOGLOBIN 27.4 PG (27.0-34.0); MEAN CORPUSCULAR HGB CONC 33.1 % (32.0-36.0); MONO % 8.7 % (0.0-8.0); NEUT % 59.4 % (16.0-70.0); PLATELET COUNT 185 TH/MM3 (150-450); RED BLOOD COUNT 3.99 MIL/MM3 (4.00-5.30); RED CELL DISTRIBUTION WIDTH 15.3 % (11.6-17.2)
[2017-01-28 06:17] LABS: BICARBONATE 24.3 MEQ/L (21.0-32.0); POTASSIUM 3.6 MEQ/L (3.5-5.1)
--- NOTE | 2017-01-28 06:25 | HHI.PR ---
Subjective Subjective Notes no acute issues, ng placed yesterday with 3800cc out Objective Vitals/I&O Vital Signs Date Time Temp Pulse Resp B/P Pulse Ox O2 Delivery O2 Flow Rate FiO2 01/28/17 00:00 97.8 99 20 106/63 93 01/27/17 15:22 Room Air Labs Laboratory Tests Test 01/27/17 01/27/17 01/27/17 01/27/17 08:45 10:00 12:07 15:15 White Blood Count 10.2 Red Blood Count 4.77 Hemoglobin 12.9 Hematocrit 39.4 Mean Corpuscular Volume 82.7 Mean Corpuscular Hemoglobin 27.1 Mean Corpuscular Hemoglobin 32.8 Concent Red Cell Distribution Width 15.1 Platelet Count 256 Mean Platelet Volume 10.1 Neutrophils (%) (Auto) 80.3 Lymphocytes (%) (Auto) 13.7 Monocytes (%) (Auto) 5.4 Eosinophils (%) (Auto) 0.1 Basophils (%) (Auto) 0.5 Neutrophils # (Auto) 8.2 Lymphocytes # (Auto) 1.4 Monocytes # (Auto) 0.5 Eosinophils # (Auto) 0.0 Basophils # (Auto) 0.1 CBC Comment DIFF FINAL Differential Comment Prothrombin Time 11.7 Prothromb Time International 1.1 Ratio Activated Partial 24.3 Thromboplast Time Sodium Level 134 Potassium Level 4.4 Chloride Level 92 Carbon Dioxide Level 24.0 Anion Gap 18 Blood Urea Nitrogen 57 Creatinine 6.82 Estimat Glomerular Filtration 6 Rate Random Glucose 137 Lactic Acid Level 4.8 Calcium Level 8.5 Total Bilirubin 0.7 Aspartate Amino Transf 14 (AST/SGOT) Alanine Aminotransferase 13 (ALT/SGPT) Alkaline Phosphatase 113 Troponin I LESS THAN 0.02 LESS THAN 0.02 LESS THAN 0.02 Total Protein 9.9 Albumin 3.9 Lipase 207 Beta HCG, Qualitative 2 Urine Color YELLOW Urine Turbidity CLOUDY Urine pH 6.0 Urine Specific [place] 1.018 Urine Protein 300 Urine Glucose (UA) NEG Urine Ketones NEG Urine Occult Blood SMALL Urine Nitrite NEG Urine Bilirubin NEG Urine Urobilinogen 2.0 Urine Leukocyte Esterase LARGE Urine RBC 42 Urine WBC Urine WBC Clumps MANY Urine Squamous Epithelial 5 Cells Urine Bacteria MANY Microscopic Urinalysis Comment CATH-CULTURE IND Total Creatine Kinase 257 270 Creatine Kinase MB 3.6 3.7 Creatine Kinase MB % 1.4 1.4 Test 01/27/17 01/28/17 15:30 05:20 Lactic Acid Level 1.3 0.9 White Blood Count 7.0 Red Blood Count 3.99 Hemoglobin 11.0 Hematocrit 33.1 Mean Corpuscular Volume 83.0 Mean Corpuscular Hemoglobin 27.4 Mean Corpuscular Hemoglobin 33.1 Concent Red Cell Distribution Width 15.3 Platelet Count 185 Mean Platelet Volume 9.9 Neutrophils (%) (Auto) 59.4 Lymphocytes (%) (Auto) 27.5 Monocytes (%) (Auto) 8.7 Eosinophils (%) (Auto) 3.9 Basophils (%) (Auto) 0.5 Neutrophils # (Auto) 4.2 Lymphocytes # (Auto) 1.9 Monocytes # (Auto) 0.6 Eosinophils # (Auto) 0.3 Basophils # (Auto) 0.0 CBC Comment DIFF FINAL Differential Comment Sodium Level 137 Potassium Level 3.6 Chloride Level 100 Carbon Dioxide Level 24.3 Anion Gap 13 Blood Urea Nitrogen 66 Creatinine 7.52 Estimat Glomerular Filtration 6 Rate Random Glucose 115 Calcium Level 7.1 Date/Time Procedure Status Source Growth 01/27/17 10:00 Urine Culture Received Urine Catheterized Urine Pending Radiology Last 48 hours Impressions Renal Ultrasound 01/27/17 0000 Signed Impressions: Service Date/Time: Friday, January 27, 2017 12:08 - CONCLUSION: 1. Echogenic kidneys which can be seen with medical renal disease. 2. Nonobstructing calculus measures 2.1 cm in the lower pole left kidney. 3. Nonvisualization of the bladder. There is air in the bladder on most recent CT scan of the abdomen/pelvis. This could be infectious and likely the main reason cannot visualize bladder. Anselmo Shelton MD Cardiovascular: Regular Lungs: Clear Abdomen: Other (soft mild ttp, no rebound, no guarding) A/P Assessment and Plan 51 year old female with an obstructing gallstone ileus, ng placed -Remain NPO, ok for ice chips 30cc q4h -NGT to LIWS -Continue hydration with IV fluids, replace ng output as needed -Nephrology following for evaluation of renal failure -Will stabilize patient and maximize patient's condition prior to surgery -Will tentatively plan for OR on Monday - provided clear from a medical and cardiac stand point Eduardo Bridges MD Jan 28, 2017 06:25
[2017-01-28 06:42] LABS: CALCIUM-PROTEIN CORRECTED 6.9 MG/DL (8.5-10.1)
[2017-01-28] MEDS: SODIUM CHLORIDE 0.9% FLUSH 5 ML FLUSH FLUSH SCH ×2 (07:07→20:40)
[2017-01-28 08:00] VITALS: BP 138/69; PULSE 84; RESP 17; TEMP 97.9; O2SAT 98
[2017-01-28] MEDS ORDERED: CALCIUM GLUCONATE INJ 1 GM in SODIUM CHLORIDE 0.9% INJ 100 ML IV ONE (08:30)
--- NOTE | 2017-01-28 09:49 | HHI.HP ---
[facility] Service Family Medicine Primary Care Physician No Primary Care Physician Admission Diagnosis Acute on chronic kidney failure, lactic acidosis Diagnoses: (1) Gallstone ileus Diagnosis: Principal (2) Acute on chronic kidney failure Diagnosis: Principal (3) Kidney stone on left side Diagnosis: Principal (4) Abnormal finding on EKG Diagnosis: Principal (5) Analisa infection Diagnosis: Principal (6) Diabetes mellitus Diagnosis: Principal (7) Asthma Diagnosis: Principal (8) Nutrition, metabolism, and development symptoms International Travel<30 Days: No Contact w/Intl Traveler<30days: No Known Affected Area: No History of Present Illness Ms. Marie is a 51 y/o CF with a PMHx of T2DM, CKD, and osteomyelitis s/p L forefoot amputations presented with 2 days of ABD pain and vomiting. She states that she has had 4-5 episodes of vomiting over each of the last 2 days prior to admission. She describes the emesis as bilious without food particles or blood. She also endorses crampy, widespread abdominal pain lasting over those 2 days which she attributes to constantly vomiting. She also states that she's had nausea with intermittent fever and chills, but has not taken her temperature. She states that she has not had much to eat over the last couple of days, but has been drinking appropriately. She does state that her roommate has had similar symptoms within the last week. Otherwise she has no complaints and denies any chest pain, shortness of breath, or calf tenderness. Of note, she currently does not take any medications for her DM. She states that she does check her BG daily and has been running 110-150 which is elevated from her baseline according to her. She is aware that she has CKD, but does not see a threading machine feeder automatic. She denies any recent NSAID use or any OTC medications other than her prescribed Cimetidine. She was found to be in acute renal failure with a very elevated creatinine of almost 7 and now today over 7. She initially said she would not have dialysis but agreed today if it was life threatening that she would agree wo it. She was also found to have a cholecystitis and gallstone ileus with a very distended bowel so an NG tube was placed. She also initially declined a gates catheter but agrees to one today when it was explained that there was no real way to keep track of her renal output as she just wet the bed last night so we are unsure if she could be becoming oliguric. She feels better this am with the NG tube as far as her abdominal problems go. When asked about any past history of cardiac problems she completely denied them. She also is not very active but walks with her walker at home and denies any chest pain or pressure or other problems when ambulating. She denied any chest pain except when she had "so much vomiting". Review of Systems Other Constitutional: COMPLAINS OF: Fever, Chills Endocrine: DENIES: Polyuria Eyes: DENIES: Blurred vision Ears, nose, mouth, throat: DENIES: Throat pain Respiratory: DENIES: Cough, Shortness of breath Cardiovascular: DENIES: Chest pain, Palpitations Gastrointestinal: COMPLAINS OF: Abdominal pain, Diarrhea (Baseline ), Nausea, Vomiting Genitourinary: DENIES: Dysuria Musculoskeletal: DENIES: Joint pain Integumentary: DENIES: Rash Hematologic/lymphatic: DENIES: Lymphadenopathy Immunologic/allergic: DENIES: Urticaria Neurologic: DENIES: Headache Past Family Social History Past Medical History Gastroparesis Type 2 DM Osteomyelitis of L foot s/p amputation CKD stage 4 GERD Depression Iron deficiency anemia Asthma Unknown behavioral problems, has been on disability and may have these reevaluated Migraines Kidney stones Past Surgical History Lithotripsy Tonsillectomy L forefoot amputation Allergies: Coded Allergies: Sinequan (Verified Allergy, Severe, HIVES, 09/05/14) Codeine (Verified Adverse Reaction, Severe, NAUSEA/VOMITING, 09/05/14) *MDRO Multi-Drug Resistant Organism (Unverified Adverse Reaction, Unknown , 09/05/14) MRSA Family History Mom - arrhythmia, was in her room this am Father - Bladder cancer Brother - healthy Social History Lives in [place] with mother and friend. On disability for health condition. Smoke - Denies Alcohol - Denies Illicit - Denies Full Code Physical Exam Vital Signs Vital Signs Date Time Temp Pulse Resp B/P Pulse Ox O2 Delivery O2 Flow Rate FiO2 01/28/17 08:00 97.9 84 17 138/69 98 01/28/17 00:00 97.8 99 20 106/63 93 01/27/17 21:30 98.0 91 20 116/69 98 01/27/17 20:00 100 16 135/76 93 01/27/17 15:22 98.4 96 17 101/63 96 Room Air Physical Exam GENERAL: 51 y/o obese CF lying in bed in NAD with NG this am SKIN: Patches of analisa under pannus on sides. Multiple scratches on back and LE done by pt per her report. No rashes or ecchymosis. HEENT: Atraumatic, normocephalic with EOMI. PERRLA. Oropharynx clear without exudate or erythema. Mucus membranes dry. No LAD. Trachea midline without thyromegaly. No rhinorrhea. CARDIOVASCULAR: Regular rate and rhythm without murmurs, gallops, or rubs. RESPIRATORY: CTAB with no CRW. No increased WOB. GASTROINTESTINAL: Abdomen soft, mildly distended with tenderness to palpation in all 4 quadrants. No rebound tenderness/guarding. Hypoactive bowel sounds. MUSCULOSKELETAL: Extremities without cyanosis or edema. No calf tenderness. L foot with forefoot amputation, stump CDI. 2+ pulses in all 4 ext. NEUROLOGICAL: Awake and alert. Normal speech. Laboratory Laboratory Tests Test 01/27/17 01/27/17 01/27/17 01/27/17 10:00 12:07 15:15 15:30 Urine Color YELLOW Urine Turbidity CLOUDY Urine pH 6.0 Urine Specific [place] 1.018 Urine Protein 300 Urine Glucose (UA) NEG Urine Ketones NEG Urine Occult Blood SMALL Urine Nitrite NEG Urine Bilirubin NEG Urine Urobilinogen 2.0 Urine Leukocyte Esterase LARGE Urine RBC 42 Urine WBC Urine WBC Clumps MANY Urine Squamous Epithelial 5 Cells Urine Bacteria MANY Microscopic Urinalysis Comment CATH-CULTURE IND Total Creatine Kinase 257 270 Creatine Kinase MB 3.6 3.7 Creatine Kinase MB % 1.4 1.4 Troponin I LESS THAN 0.02 LESS THAN 0.02 Lactic Acid Level 1.3 Test 01/28/17 05:20 White Blood Count 7.0 Red Blood Count 3.99 Hemoglobin 11.0 Hematocrit 33.1 Mean Corpuscular Volume 83.0 Mean Corpuscular Hemoglobin 27.4 Mean Corpuscular Hemoglobin 33.1 Concent Red Cell Distribution Width 15.3 Platelet Count 185 Mean Platelet Volume 9.9 Neutrophils (%) (Auto) 59.4 Lymphocytes (%) (Auto) 27.5 Monocytes (%) (Auto) 8.7 Eosinophils (%) (Auto) 3.9 Basophils (%) (Auto) 0.5 Neutrophils # (Auto) 4.2 Lymphocytes # (Auto) 1.9 Monocytes # (Auto) 0.6 Eosinophils # (Auto) 0.3 Basophils # (Auto) 0.0 CBC Comment DIFF FINAL Differential Comment Sodium Level 137 Potassium Level 3.6 Chloride Level 100 Carbon Dioxide Level 24.3 Anion Gap 13 Blood Urea Nitrogen 66 Creatinine 7.52 Estimat Glomerular Filtration 6 Rate Random Glucose 115 Lactic Acid Level 0.9 Calcium Level 7.1 Protein Corrected Calcium 6.9 Total Protein 7.6 Date/Time Procedure Status Source Growth 01/27/17 10:00 Urine Culture Received Urine Catheterized Urine Pending Result Diagram: 01/28/1751901/28/17519 Assessment and Plan Assessment and Plan Ms. Marie is a 51 y/o CF with a PMHx of T2DM, CKD, and osteomyelitis s/p L forefoot amputations presenting with 2 days of ABD pain and vomiting. She was admitted for gallstone ileus, acute on chronic kidney disease, now renal failure , and L renal stone. Problem List: (1) Gallstone ileus Status: Acute Plan: Patient with 2 days of bilious vomiting and subjective fever/chills found to have gallstone ileus on CT exam. Per discussion with Dr. Roach, ER physician, consulted general surgery for possible procedure which will be done Monday CT: Probable gallstone ileus. Status post seen on series 304, image 42. Nonobstructing left renal stone and very small kidney. There is a small amount of air in the collecting system of the L kidney. Lactic acid of 4.8 initially, now is normal; with no leukocytosis and subjective fevers -Tbili 0.7 Consulted General Surgery: Appreciate recommendations, patient made NPO and Heparin held. NG placed Medications: Toradol 30 mg given once in ER, no more NSAIDS fro the sake of her kidneys Tylenol 650 mg for pain 1-2 [place] 5 mg for pain 3-5 [place] 10 mg for pain 6-10 Reglan 2.5 mg every 6 hours when necessary for nausea or vomiting, will hold as she has some obstruction (2) Acute on chronic kidney failure Status: Acute Plan: Patient with stage IV kidney disease not seen by nephrology as an outpt and not on hemodialysis. Per chart review patient's last creatinine baseline in 2013 ranges from 1.84 - 2.3. CMP on admission: BUN 57, creatinine 6.8 to, GFR 6 Lactic acid 4.8, now normal UA: Protein 300, small occult blood, large leukocyte esterase, 42 RBC, many WBC clumps, many bacteria Nephrology consulted: Appreciate recommendations. hope she will not need dialysis but she does agree today to consider it if needed Medications: Normal saline 150 mL per hour, need to replace her output from her NG (3) Kidney stone on left side Status: Acute Plan: Patient with history of renal stones found to have small left renal stone on CT. Renal ultrasound: done, nonobstructing stone Please see plan as above (4) Abnormal finding on EKG Status: Acute Plan: Patient found to have tiny Q waves on EKG in 2 leads unsure of clinical significance. Patient is currently asymptomatic and denies any recent chest pain , palpitations, or SOB. Medical team proceeded with ACS rule out. Her troponins were fine. She is at some cardiac risk based on her DM but has no history consistent with angina or prior IA. Troponin: <0.02, EKG: L axis deviation with tiny Q waves per Medical Team read. She also had slight 1 mm elevation inferiorly but no IA nor cardiac disease per history. Telemetry Echo: Pending (5) Analisa infection Status: Acute Plan: Patient found to have Analisa infection on pannus folds and anal region Topical nystatin to be applied to infected areas every 8 hours (6) Diabetes mellitus Status: Chronic Plan: Patient with history of diabetes mellitus. States her baseline BG is 110 to 150s and is currently not on any medication. Scale insulin per protocol (7) Asthma Status: Chronic Plan: Patient with history of asthma Albuterol 2.5 mg every 2 hours when necessary for shortness of breath or wheezing (8) Nutrition, metabolism, and development symptoms Status: Acute Plan: Fluids: NS at 150ml/hr Electrolytes: Sodium 134, Glucose 137, continue to monitor Diet: NPO because of ileus until after procedure Monday GI prophylaxis: Protonix, held home Cimetidine and Lactase DVT prophylaxis: Heparin held for possible procedure today, can give some heparin but hold prior to surgery HTN: Vasotec PRN, will hold vasotec as ACEs can make renal failure worse in some circumstances Physician Certification 2 Midnight Certification Type: Admission for Inpatient Services Order for Inpatient Services The services are ordered in accordance with Medicare regulations or non- Medicare payer requirements, as applicable. In the case of services not specified as inpatient-only, they are appropriately provided as inpatient services in accordance with the 2-midnight benchmark. Estimated LOS (days): 5 5 days is the estimated time the patient will need to remain in the hospital, assuming treatment plan goals are met and no additional complications. Post-Hospital Plan: Not yet determined Problem Qualifiers (1) Diabetes mellitus: Qualified Code: E11.620 - Type 2 diabetes mellitus with diabetic dermatitis, without long-term current use of insulin (2) Asthma: Qualified Code: J45.909 - Uncomplicated asthma, unspecified asthma severity Angelique Zepeda MD Jan 28, 2017 09:49
[2017-01-28 12:00] VITALS: BP 154/74; PULSE 84; RESP 17; TEMP 98.2; O2SAT 96
[2017-01-28] MEDS: PANTOPRAZOLE SODIUM 40 MG VIAL IV PUSH SCH (13:53)
--- NOTE | 2017-01-28 15:24 | HHI.NPPN ---
Subjective History of Present Illness 51 year old with ckd and now with ARF, Gall stone Ileus NGT Review of Systems General Constitutional: Fatigue Objective Data Data 01/27/17 01/28/17 19:00 07:00 Intake Total 2500 ml Output Total 10 ml 3800 ml Balance -10 ml -1300 ml Intake Oral 0 ml IV Total 2500 ml Output Gastric Drainage Total 3800 ml Emesis 10 ml # Voids 1 Vital Signs Date Time Temp Pulse Resp B/P Pulse Ox O2 Delivery O2 Flow Rate FiO2 01/28/17 12:00 98.2 84 17 154/74 96 01/28/17 08:00 97.9 84 17 138/69 98 01/28/17 00:00 97.8 99 20 106/63 93 01/27/17 21:30 98.0 91 20 116/69 98 01/27/17 20:00 100 16 135/76 93 01/27/17 15:22 98.4 96 17 101/63 96 Room Air -: 01/28/17 0520 01/28/17 0520 Physical Exam General Appearance: Well Developed, Pale Neck Neck Exam: Neck Supple Pulmonary Resp Exam: Clear Bilaterally, Breath Sounds Equal Cardiology CV Exam: Tachycardia Gastrointestinal/Abdomen GI Exam: Soft, Distended Extremeties Extremities Exam: No Edema Assessment/Plan Problem List: (1) Acute on chronic kidney failure Plan: Acute renal failure may be due to sepsis, renal hypoperfusion ; may have progressed to ATN On IVF D51/2 NS at 125 cc /hr I will increase to 150 cc /hr large volume removed via NGT sepsis due to Gall stones Cr higher monitor BMP Give albumin (2) Diabetes mellitus Plan: insulin as needed monitor glucose (3) Gallstone ileus Plan: surgery consulted she has NG tube Madison Avila MD Jan 28, 2017 15:24
[2017-01-28 16:00] VITALS: BP 142/76; PULSE 87; RESP 17; TEMP 96.8; O2SAT 96
--- NOTE | 2017-01-28 19:43 | EKG ---
Date Performed: 01/27/2017 Time Performed: 15:38:29 PTAGE: 51 years EKG: Sinus rhythm MODERATE VOLTAGE CRITERIA FOR LVH, CONSIDER NORMAL VARIANT POSSIBLE ANTERIOR MYOCARDIAL INFARCTION M ODERATE T-WAVE ABNORMALITY, CONSIDER LATERAL ISCHEMIA Since previous tracing, no significant change n oted ABNORMAL ECG PREVIOUS TRACING : 01/27/2017 09.12 DOCTOR: Alex Hart Interpretating Date/Time 01/28/2017 19:42:58
[2017-01-28 20:00] VITALS: BP 140/71; PULSE 65; RESP 20; TEMP 97.6; O2SAT 96
[2017-01-28] MEDS: ONDANSETRON HCL 4 MG/2 ML VIAL IV PUSH PRN (20:42)
[2017-01-29] VITALS: BP 133/77; PULSE 85; RESP 20; TEMP 97.9; O2SAT 98
[2017-01-29] MEDS: INSULIN ASPART SUPPLEMENTAL SCALE SQ SCH ×4 (05:47→21:00)
[2017-01-29] MEDS: NYSTATIN 100,000 U/GM PWD 15 GM BTL TOPICAL SCH ×3 (05:47→21:23)
[2017-01-29] MEDS: DEXT 5%-NACL 0.45% 1000 ML INJ 1,000 ML IV SCH ×4 (05:47→21:24)
[2017-01-29 07:06] LABS: HEMATOCRIT 34.7 % (35.0-46.0); MEAN CORPUSCULAR HEMOGLOBIN 26.8 PG (27.0-34.0); MEAN CORPUSCULAR HGB CONC 32.3 % (32.0-36.0); PLATELET COUNT 175 TH/MM3 (150-450); RED BLOOD COUNT 4.18 MIL/MM3 (4.00-5.30); RED CELL DISTRIBUTION WIDTH 14.7 % (11.6-17.2); REVIEW FLAG FINAL; WHITE BLOOD COUNT 8.1 TH/MM3 (4.0-11.0)
[2017-01-29] MEDS: SODIUM CHLORIDE 0.9% FLUSH 5 ML FLUSH FLUSH SCH ×2 (07:20→21:00)
[2017-01-29 07:35] LABS: BICARBONATE 23.1 MEQ/L (21.0-32.0); POTASSIUM 3.2 MEQ/L (3.5-5.1); TOTAL BILIRUBIN ADULT 0.3 MG/DL (0.2-1.0)
[2017-01-29 07:55] LABS: CALCIUM-PROTEIN CORRECTED 7.2 MG/DL (8.5-10.1)
[2017-01-29 08:00] VITALS: BP 125/64; PULSE 97; RESP 16; TEMP 97.9; O2SAT 94
[2017-01-29] MEDS ORDERED: CALCIUM GLUCONATE INJ 1 GM in DEXTROSE 5% IN WATER 100ML INJ 100 ML IV ONE ×2 (09:30)
[2017-01-29] MEDS: POTASSIUM CHLOR 20 MEQ PREMIX 100 ML IV SCH ×2 (09:35→09:37)
--- NOTE | 2017-01-29 10:59 | HHI.PR ---
Subjective Subjective Notes crying because she wants her ice chips back, denies pain, Objective Vitals/I&O Vital Signs Date Time Temp Pulse Resp B/P Pulse Ox O2 Delivery O2 Flow Rate FiO2 01/29/17 08:00 97.9 97 16 125/64 94 01/27/17 15:22 Room Air Labs Laboratory Tests Test 01/29/17 05:30 White Blood Count 8.1 Red Blood Count 4.18 Hemoglobin 11.2 Hematocrit 34.7 Mean Corpuscular Volume 83.0 Mean Corpuscular Hemoglobin 26.8 Mean Corpuscular Hemoglobin 32.3 Concent Red Cell Distribution Width 14.7 Platelet Count 175 Mean Platelet Volume 10.2 Sodium Level 139 Potassium Level 3.2 Chloride Level 102 Carbon Dioxide Level 23.1 Anion Gap 14 Blood Urea Nitrogen 57 Creatinine 5.46 Estimat Glomerular Filtration 8 Rate Random Glucose 87 Calcium Level 7.2 Protein Corrected Calcium 7.2 Total Bilirubin 0.3 Aspartate Amino Transf 16 (AST/SGOT) Alanine Aminotransferase 10 (ALT/SGPT) Alkaline Phosphatase 72 Total Protein 7.1 Albumin 2.8 Date/Time Procedure Status Source Growth 01/27/17 10:00 Urine Culture - Final Complete Urine Catheterized Urine 50-100,000 CFU/ML MIXED DORCAS... Radiology Last 48 hours Impressions Renal Ultrasound 01/27/17 0000 Signed Impressions: Service Date/Time: Friday, January 27, 2017 12:08 - CONCLUSION: 1. Echogenic kidneys which can be seen with medical renal disease. 2. Nonobstructing calculus measures 2.1 cm in the lower pole left kidney. 3. Nonvisualization of the bladder. There is air in the bladder on most recent CT scan of the abdomen/pelvis. This could be infectious and likely the main reason cannot visualize bladder. Anselmo Shelton MD Cardiovascular: Regular Lungs: Clear Narrative Exam abdomen distended, non tender, quiet A/P Assessment and Plan gallstone ileus/sbo awaiting medical clearance plan or tomorrow with dr karo campos for ice chips - NG working well Shakeel Braden MD Jan 29, 2017 10:59
[2017-01-29 12:00] VITALS: BP 128/69; PULSE 92; RESP 17; TEMP 98.2; O2SAT 95
--- NOTE | 2017-01-29 12:16 | HHI.PR ---
Addendum to Inpatient Note Addendum Reason: Additional Documentation Additional Information Patient seen and examined. Case reviewed and discussed with the resident team. Agree with plan of care as discussed with me and documented in the resident note. Discussed with pt re her surgery tomorrow. She is very frightened about surgeries in general and I explained that she would be anesthetized and will not feel the surgery. I went over her risk factors for surgery including cardiac. Fortunately, her renal fxn is improving today. Her risk factors include : DM and a family history with her father having MIs in his 40s to 50s. Otherwise she denies smoking, HTN, cholesterol problems but is obese. She states she never has any chest pain, pressure or tightness on exertion and no history of cardiac problems. I discussed having a frame bender see her here in the hospital and she declines. She stated, "I don't want any testing done before surgery." When told about a possible nuclear test or others, she declines. Cardiac cath would be impossible with her poor but improving renal fxn as it could put her on chronic dialysis at this critical point. We discussed that her surgery was necessary as she cannot eat or drink in her current condition. Her ileus has been terrible and she has had an NG tube for days. She understands that surgery is necessary and urgent with her condition and not an elective procedure. In any case, her echocardiogram was reassuring with normal fxn and good wall movement. Her troponins despite the high creatinine were all normal. Her EKG is not perfectly normal as she does have left axis deviation and minor T wave abnormalities among other things but her EKG has been stable on several readings without acute changes. She has some risks for problems with surgery these are relatively low but she needs to proceed with surgery so she can recover and be able to go home. Angelique Zepeda MD Jan 29, 2017 12:15
--- NOTE | 2017-01-29 12:32 | HHI.FPPN ---
Subjective Remarks No acute events overnight. Patient reports feeling better since having NG tube placed. Denies any chest pain, SOB, abdominal pain. Even before her acute illness, patient denied ever having chest pain or shortness of breath. She does not utilize stairs as she walks with a walker. No other concerns today. ( Essie Coley MD R2) Objective Vitals Vital Signs Date Time Temp Pulse Resp B/P Pulse Ox O2 Delivery O2 Flow Rate FiO2 01/29/17 12:00 98.2 92 17 128/69 95 01/29/17 08:00 97.9 97 16 125/64 94 01/29/17 00:00 97.9 85 20 133/77 98 01/28/17 20:00 97.6 65 20 140/71 96 01/28/17 16:00 96.8 87 17 142/76 96 I/O 01/28/17 01/28/17 01/28/17 01/29/17 01/29/17 01/29/17 07:00 15:00 23:00 07:00 15:00 23:00 Intake Total 1300 ml 786 ml 1304 ml 600 ml Output Total 800 ml 350 ml 300 ml 500 ml 450 ml Balance 500 ml 436 ml 1004 ml 100 ml -450 ml Intake Oral 0 ml 0 ml 0 ml 0 ml IV Total 1300 ml 786 ml 1304 ml 600 ml Output Urine Total 150 ml 300 ml 500 ml Gastric Drainage Total 800 ml 200 ml 450 ml # Voids 1 # Bowel Movements 0 (Essie Coley MD R2) Result Diagram: 01/29/17 0530 01/29/17 0530 Imaging GEN: Well-developed, well-nourished patient. No acute distress. NG tube in place. CV: Distant heart sounds but without obvious murmurs. Regular rate and rhythm. LUNGS: Distant lung sounds but otherwise clear to auscultation bilaterally without wheezes, crackles, rubs. GI: Soft, mildly tender to palpation, nondistended. No palpable masses. EXT: No edema. No calf tenderness. NEURO/PSYCH: Awake, alert. Appropriate insight and judgment. Normal speech ( Essie Coley MD R2) A/P Assessment and Plan Ms. Marie is a 51 y/o CF with a PMHx of T2DM, CKD, and osteomyelitis s/p L forefoot amputation. She was admitted for gallstone ileus, acute on chronic kidney disease. Discharge Planning 2-4 days pending recovery from surgery dw Dr. [facility]epeda [facility] Attending Attestation Patient seen and examined. Case reviewed and discussed with the resident team. Agree with plan of care as discussed with me and documented in the resident note. (Angelique Zepeda MD) Problem List: (1) Gallstone ileus Status: Acute Plan: Presented due to bilious vomiting. Subjective fever/chills. Found to have gallstone ileus on CT. -No leukocytosis, lactic acidosis resolved -NG tube in place with large output -CT abdomen: Probable gallstone ileus. Nonobstructing left renal stone. Small amount of air in the collecting system of the left kidney. PATIENT IS CLEARED FOR SURGERY. * Per discussion with attending, after thorough evaluation of history and low risk procedure, patient does not need further cardiac testing including stress test. EKG did show some T-wave abnormality but troponin trending was negative. Echo was unremarkable which showed an EF of 55-60% and only mild mitral valve regurgitation. Prior to current event, patient denied ever having any chest pain or SOB. She was otherwise asymptomatic during all activities. Consulted Gen. surgery: Appreciate recommendations * Plan for surgery tomorrow with Dr. Bridges * NG tube * Nothing by mouth (2) Acute on chronic kidney failure Status: Acute Plan: Patient with stage IV kidney disease, is not seen by nephrology as an outpt. Per chart review patient's last creatinine baseline in 2013 ranges from 1.84 - 2.3. -Improving creatinine Nephrology consulted: Appreciate recommendations * Acute renal failure may be due to sepsis, renal hypoperfusion. They have progressed to ATN. * Increase fluids, fever 8 below (3) Analisa infection Status: Acute Plan: Patient found to have Analisa infection on pannus folds and anal region Topical nystatin to be applied to infected areas every 8 hours (4) Diabetes mellitus Status: Chronic Plan: Patient with history of diabetes mellitus. States her baseline BG is 110 to 150s and is currently not on any medication. Scale insulin per protocol (5) Asthma Status: Chronic Plan: Patient with history of asthma Albuterol 2.5 mg every 2 hours when necessary for shortness of breath or wheezing (6) Nutrition, metabolism, and development symptoms Status: Acute Plan: Fluids: D5 1/2NS at 150 Electrolytes: Mild hyponatremia, replaced with 40 MEQ. Hypokalemia replace with calcium gluconate 1 Diet: NPO because of ileus until after procedure Monday GI prophylaxis: Protonix DVT prophylaxis: Chemical anticoagulation held due to surgery on 01/30. SCDs (Essie Coley MD R2) Problem Qualifiers (1) Diabetes mellitus: Qualified Code: E11.620 - Type 2 diabetes mellitus with diabetic dermatitis, without long-term current use of insulin (2) Asthma: Qualified Code: J45.909 - Uncomplicated asthma, unspecified asthma severity Essie Coley MD R2 Jan 29, 2017 12:32 Angelique Zepeda MD Feb 03, 2017 12:50
[2017-01-29] MEDS: PANTOPRAZOLE SODIUM 40 MG VIAL IV PUSH SCH (12:47)
[2017-01-29] MEDS ORDERED: hydrALAZINE HCL 10 MG TAB PO PRN (13:00)
[2017-01-29 16:00] VITALS: BP 139/77; PULSE 88; RESP 18; TEMP 98.6; O2SAT 95
--- NOTE | 2017-01-29 16:08 | HHI.NPPN ---
Subjective History of Present Illness 51 year old with ckd and now with ARF, Gall stone Ileus NGT Review of Systems General Constitutional: Fatigue Objective Data Data 01/28/17 01/29/17 19:00 07:00 Intake Total 786 ml 1904 ml Output Total 350 ml 800 ml Balance 436 ml 1104 ml Intake Oral 0 ml 0 ml IV Total 786 ml 1904 ml Output Urine Total 150 ml 800 ml Gastric Drainage Total 200 ml # Bowel Movements 0 Vital Signs Date Time Temp Pulse Resp B/P Pulse Ox O2 Delivery O2 Flow Rate FiO2 01/29/17 12:00 98.2 92 17 128/69 95 01/29/17 08:00 97.9 97 16 125/64 94 01/29/17 00:00 97.9 85 20 133/77 98 01/28/17 20:00 97.6 65 20 140/71 96 -: 01/29/17 0530 01/29/17 0530 Physical Exam General Appearance: Well Developed, Pale Neck Neck Exam: Neck Supple Pulmonary Resp Exam: Clear Bilaterally, Breath Sounds Equal Cardiology CV Exam: Tachycardia Gastrointestinal/Abdomen GI Exam: Soft, Distended Extremeties Extremities Exam: No Edema Assessment/Plan Problem List: (1) Acute on chronic kidney failure Plan: Acute renal failure may be due to sepsis, renal hypoperfusion ; may have progressed to ATN On IVF D51/2 NS 150 cc /hr large volume removed via NGT sepsis due to Gall stones Cr better monitor BMP Galls tone surgery in am Dr. Rainey to follow (2) Diabetes mellitus Plan: insulin as needed monitor glucose (3) Gallstone ileus Plan: surgery tomorrow she has NG tube Problem Qualifiers (1) Diabetes mellitus: Qualified Code: E11.620 - Type 2 diabetes mellitus with diabetic dermatitis, without long-term current use of insulin Madison Avila MD Jan 29, 2017 16:08
[2017-01-29 19:49] VITALS: PULSE 94
[2017-01-29 20:00] VITALS: BP 132/69; PULSE 89; RESP 20; TEMP 97.9; O2SAT 95
[2017-01-29] MEDS: LORazepam 2 MG/ML VIAL IV PUSH PRN (21:24)
[2017-01-30 03:15] VITALS: BP 146/73; PULSE 94; RESP 20; TEMP 98.5; O2SAT 96
[2017-01-30] MEDS: DEXT 5%-NACL 0.45% 1000 ML INJ 1,000 ML IV SCH ×2 (05:12→23:49)
[2017-01-30] MEDS: NYSTATIN 100,000 U/GM PWD 15 GM BTL TOPICAL SCH ×3 (05:13→20:06)
[2017-01-30] MEDS: INSULIN ASPART SUPPLEMENTAL SCALE SQ SCH ×4 (05:16→20:06)
[2017-01-30] MEDS: LORazepam 2 MG/ML VIAL IV PUSH PRN ×2 (05:22→23:49)
[2017-01-30 05:53] LABS: BICARBONATE 24.9 MEQ/L (21.0-32.0); POTASSIUM 3.2 MEQ/L (3.5-5.1)
[2017-01-30 06:13] LABS: CALCIUM-PROTEIN CORRECTED 7.1 MG/DL (8.5-10.1)
[2017-01-30] MEDS: LACTATED RINGER'S 1000 ML IV SCH (07:00)
[2017-01-30] MEDS ORDERED: SODIUM CHLORID 0.9% 500 ML IV SCH (07:00)
[2017-01-30 08:00] VITALS: BP 152/77; PULSE 83; RESP 22; TEMP 96.2; O2SAT 94
[2017-01-30] MEDS: SODIUM CHLORIDE 0.9% FLUSH 5 ML FLUSH FLUSH SCH ×2 (08:16→20:06)
[2017-01-30] MEDS: ACETAMINOPHEN/HYDROcodone 325 MG/10 MG TAB PO PRN (08:16)
[2017-01-30] MEDS ORDERED: POTASSIUM CHLOR 20 MEQ PREMIX 100 ML IV ONE (10:00)
--- NOTE | 2017-01-30 10:39 | HHI.FPPN ---
Subjective Remarks Patient seen and examined this morning prior to surgery. No acute events overnight with vital signs stable. Her mother and roommate at bedside and multiple questions regarding the procedure. All questions were answered appropriately. That she is nervous about surgery, but is agreeable to the procedure. She has no complaints and denies any fevers, chills, shortness of breath, chest pain, NVD, or calf tenderness. (Alli Chaparro MD R1) Objective Vitals Vital Signs Date Time Temp Pulse Resp B/P Pulse Ox O2 Delivery O2 Flow Rate FiO2 01/30/17 08:00 96.2 83 22 152/77 94 01/30/17 03:15 98.5 94 20 146/73 96 01/29/17 20:00 97.9 89 20 132/69 95 01/29/17 19:49 94 01/29/17 16:00 98.6 88 18 139/77 95 01/29/17 12:00 98.2 92 17 128/69 95 I/O 01/29/17 01/29/17 01/29/17 01/30/17 01/30/17 01/30/17 07:00 15:00 23:00 07:00 15:00 23:00 Intake Total 600 ml 710 ml 876 ml 1068 ml Output Total 500 ml 750 ml 1000 ml 600 ml Balance 100 ml -40 ml -124 ml 468 ml Intake Oral 0 ml 0 ml 0 ml 0 ml IV Total 600 ml 710 ml 876 ml 1068 ml Output Urine Total 500 ml 300 ml 400 ml 500 ml Gastric Drainage Total 450 ml 600 ml 100 ml # Bowel Movements 0 (Alli Chaparro MD R1) Result Diagram: 01/29/17 0530 01/30/17 0510 Objective Remarks GEN: Well-developed, well-nourished patient lying in bed in no acute distress. NG tube in place with bilious drainage. CV: Distant heart sounds, but without obvious murmurs. Regular rate and rhythm. LUNGS: Distant lung sounds, but otherwise CTAB. GI: Soft, tender to palpation, nondistended with positive bowel sounds. No palpable masses. EXT: No edema. No calf tenderness. NEURO/PSYCH: Awake, alert. Appropriate insight and judgment. Normal speech ( Alli Chaparro MD R1) A/P Assessment and Plan Ms. Marie is a 51 y/o CF with a PMHx of T2DM, CKD, and osteomyelitis s/p L forefoot amputation. She was admitted for gallstone ileus and acute on chronic kidney disease. She Discharge Planning 2-4 days pending recovery from surgery dw Dr. Zepeda (Alli Chaparro MD R1) Attending Attestation Patient seen and examined. Case reviewed and discussed with the resident team. Agree with plan of care as discussed with me and documented in the resident note. she is making no real progress without surgery and needs to have the obstruction removed (Angelique Zepeda MD) Problem List: (1) Gallstone ileus Status: Acute Plan: Presented due to bilious vomiting. Subjective fever/chills. Found to have gallstone ileus on CT. -No leukocytosis, lactic acidosis resolved -NG tube in place with large output -CT abdomen: Probable gallstone ileus. Nonobstructing left renal stone. Small amount of air in the collecting system of the left kidney. PATIENT IS CLEARED FOR SURGERY. * Per discussion with attending, after thorough evaluation of history and low risk procedure, patient does not need further cardiac testing including stress test. EKG did show some T-wave abnormality but troponin trending was negative. Echo was unremarkable which showed an EF of 55-60% and only mild mitral valve regurgitation. Prior to current event, patient denied ever having any chest pain or SOB. She was otherwise asymptomatic during all activities. Consulted Gen. surgery: Appreciate recommendations * Surgery today with Dr. Bridges * NG tube * Nothing by mouth since midnight (2) Acute on chronic kidney failure Status: Acute Plan: Patient with stage IV kidney disease, is not seen by nephrology as an outpt. Per chart review patient's last creatinine baseline in 2013 ranges from 1.84 - 2.3. -Improving creatinine Nephrology consulted: Appreciate recommendations * Acute renal failure may be due to sepsis, renal hypoperfusion. May have progressed to ATN. * Currently on D5 with 1/2NS at 150 ml/hr (3) Analisa infection Status: Acute Plan: Patient found to have Analisa infection on pannus folds and anal region Topical nystatin to be applied to infected areas every 8 hours (4) Diabetes mellitus Status: Chronic Plan: Patient with history of diabetes mellitus. States her baseline BG is 110 to 150s and is currently not on any medication. Scale insulin per protocol (5) Asthma Status: Chronic Plan: Patient with history of asthma Albuterol 2.5 mg every 2 hours when necessary for shortness of breath or wheezing (6) Nutrition, metabolism, and development symptoms Status: Acute Plan: Fluids: D5 1/2NS at 150 Electrolytes: Mild hypokalemia, replaced with KCl 20 mEq IV Diet: NPO because of ileus until after procedure today. GI prophylaxis: Protonix DVT prophylaxis: Chemical anticoagulation held due to surgery on 01/30. SCDs (Alli Chaparro MD R1) Problem Qualifiers (1) Diabetes mellitus: Qualified Code: E11.620 - Type 2 diabetes mellitus with diabetic dermatitis, without long-term current use of insulin (2) Asthma: Qualified Code: J45.909 - Uncomplicated asthma, unspecified asthma severity Alil Chaparro MD R1 Jan 30, 2017 10:39 Angelique Zepeda MD Feb 03, 2017 12:51
[2017-01-30] MEDS ORDERED: THROMBIN (TOPICAL) 5,000 UNIT VIAL ONE (11:22)
[2017-01-30] MEDS ORDERED: BUPIVACAINE/EPINEPHRINE 0.5% PF 30 ML VIAL ONE (11:23)
[2017-01-30] MEDS ORDERED: LIDOCAINE 1%/EPINEPHrine 1:100,000 SOLN 30 ML VIAL ONE (11:32)
[2017-01-30] MEDS ORDERED: DEXAMETHASONE SOD PHOS 4 MG/ML VIAL ONE (11:42)
[2017-01-30] MEDS ORDERED: MIDAZOLAM HCL 2 MG/2 ML VIAL ONE (11:42)
[2017-01-30] MEDS ORDERED: FAMOTIDINE 20 MG/2 ML VIAL ONE (11:42)
[2017-01-30] MEDS ORDERED: ONDANSETRON HCL 4 MG/2 ML VIAL IV PUSH ONE (11:52)
[2017-01-30] MEDS ORDERED: PROPOFOL 200 MG/20 ML AMP IV ONE (11:52)
[2017-01-30] MEDS ORDERED: NORMOSOL R INJ 1,000 ML IV ONE (11:52)
[2017-01-30] MEDS ORDERED: PHENYLEPH/NS 1000 MCG/10 ML SYR IV ONE (11:52)
[2017-01-30] MEDS ORDERED: ePHEDrine/NS 25 MG/5 ML SYR IV ONE (11:52)
[2017-01-30] MEDS ORDERED: ceFAZolin 2 GM PREMIX 50 ML ONE (12:09)
[2017-01-30] MEDS ORDERED: metroNIDAZOLE 500 MG INJ 100 ML IV ONE (12:09)
--- NOTE | 2017-01-30 12:11 | HHI.PR ---
Immediate Post Op Note Procedure Date: Jan 30, 2017 Pre Op Diagnosis: gallstone ileus, SBO Post Op Diagnosis: same Surgeon: Eduardo Bridges MD Program Management Analyst(s): see or sheet Procedure: diagnostic laparoscopy, laparoscopic FB removal Findings: dilated small bowel, gb stone Complications: none Specimen(s) removed: gallstone Estimated blood loss: 5cc Anesthesia: General Drains: None Patient to: PACU Patient Condition: Good Eduardo Bridges MD Jan 30, 2017 12:11
[2017-01-30] MEDS ORDERED: BUPIVACAINE/EPINEPHRINE 0.25% 50 ML VIAL INFIL ONE (12:37)
[2017-01-30] MEDS ORDERED: LIDOCAINE 1%/EPINEPHrine 1:100,000 SOLN 50 ML VIAL INFIL ONE (12:37)
[2017-01-30] MEDS ORDERED: ACETAMINOPHEN 1000 MG/100 ML VIAL IV ONE (12:58)
[2017-01-30] MEDS ORDERED: SUGAMMADEX SODIUM 200 MG/2 ML VIAL IV PUSH ONE ×4 (12:59→14:50)
[2017-01-30] MEDS: PANTOPRAZOLE SODIUM 40 MG VIAL IV PUSH SCH (14:00)
[2017-01-30] MEDS ORDERED: fentaNYL CITRATE 250 MCG/5 ML AMP ONE (14:50)
[2017-01-30] MEDS ORDERED: DO NOT ADM ANY ANTICOAGULANT DRUGS XX PRN (15:00)
[2017-01-30] MEDS ORDERED: *morphine SULFATE 8 MG/ML PERIprocedure ONLY ONE (15:06)
--- NOTE | 2017-01-30 16:37 | HHI.NPPN ---
Subjective Renal Failure: Chronic, Acute, Stage IV History of Present Illness 51 year old with ckd and now with ARF, Gall stone Ileus NGT Interval History Pt had laparoscopic gallstone removal. Seen postoperatively. NG tube remains. Renal function is better. (Angelique Sharp) Review of Systems General Constitutional: Fatigue (Angelique Sharp) Gastrointestinal Gastrointestinal: Abdominal Pain, Nausea & Vomiting (Angelique Sharp) Objective Data Data 01/29/17 01/30/17 19:00 07:00 Intake Total 710 ml 1944 ml Output Total 750 ml 1600 ml Balance -40 ml 344 ml Intake Oral 0 ml 0 ml IV Total 710 ml 1944 ml Output Urine Total 300 ml 900 ml Gastric Drainage Total 450 ml 700 ml # Bowel Movements 0 Vital Signs Date Time Temp Pulse Resp B/P Pulse Ox O2 Delivery O2 Flow Rate FiO2 01/30/17 15:45 97.4 81 17 135/78 99 Nasal Cannula 2 01/30/17 15:30 78 17 142/82 99 Nasal Cannula 2 01/30/17 15:15 77 17 138/82 99 Nasal Cannula 2 01/30/17 15:00 81 16 163/87 90 Nasal Cannula 2 01/30/17 14:45 87 16 149/83 99 Room Air 01/30/17 14:40 97.3 83 16 153/84 99 Simple Mask 6 01/30/17 08:00 96.2 83 22 152/77 94 01/30/17 03:15 98.5 94 20 146/73 96 01/29/17 20:00 97.9 89 20 132/69 95 01/29/17 19:49 94 (Angelique Sharp) -: 01/29/17 0530 01/30/17 0510 Tubes & Lines: Gates (Angelique Sharp) Physical Exam General Appearance: Well Developed, Well Nourished, No Acute Distress, Comfortable, Pale (Angelique Sharp) Throat Throat Exam: Oral Mucosa [place] & Moist (Angelique Sharp) Neck Neck Exam: Neck Supple (Angelique Sharp) Pulmonary Resp Exam: Clear Bilaterally, Breath Sounds Equal (Angelique Sharp) Cardiology CV Exam: Normal Sinus Rhythm, Good Perfusion, Tachycardia (Angelique Sharp) Gastrointestinal/Abdomen GI Exam: Soft, Bowel Sounds Present, Distended (Angelique Sharp) Musculoskeletal MS Exam: Joints Intact, Normal Tone (Angelique Sharp) Integumentary Skin Exam: Warm, Dry (Angelique Sharp) Extremeties Extremities Exam: No Edema, Pedal Pulses Palpable (Angelique Sharp) Neurologic Neuro Exam: Alert, Awake, Oriented, Speech Clear, Moving All Extremities ( Angelique Sharp) Psychiatric Psych Exam: Appropriate Responses (Angelique Sharp) Assessment/Plan Discussed Condition With: Patient, Relative Assessment Summary: SHELLEY/Acute Renal Failure, Diabetes Mellitus, CKD Stage IV Electrolyte Assessment: Hypocalcemia, Hypokalemia Problem List: (1) Acute on chronic kidney failure Plan: Acute renal failure may be due to sepsis, renal hypoperfusion ; may have progressed to ATN likely underlying diabetic nephropathy renal function is better On IVF D51/2 NS @ 50cc/hr K low, IV replacement ordered she is non oliguric with gates quantify proteinuria monitor renal function daily avoid nephrotoxins stop IVF when no longer NPO (2) Diabetes mellitus Plan: insulin as needed monitor glucose (3) Gallstone ileus Plan: she had laparoscopic gallstone removal today monitor clinically (4) Hypocalcemia Plan: check vitamin D, PTH, mag level (Angelique Sharp) Plan patient was seen and examined. Renal function has improved. No indication for dialysis. (Aneesh Rainey MD) Problem Qualifiers (1) Diabetes mellitus: Qualified Code: E11.620 - Type 2 diabetes mellitus with diabetic dermatitis, without long-term current use of insulin Angelique Sharp Jan 30, 2017 16:37 Aneesh Rainey MD Jan 31, 2017 09:43
[2017-01-30 17:00] VITALS: BP 139/70; PULSE 80; RESP 24; TEMP 95.5; O2SAT 100
[2017-01-30 20:00] VITALS: BP 165/76; PULSE 77; PULSE 80; RESP 19; TEMP 96.8; O2SAT 93
[2017-01-30 22:01] LABS: AUTOMATED NEUTROPHIL # 11.9 TH/MM3 (1.8-7.7); BASOPHIL # 0.1 TH/MM3 (0-0.2); BASOPHIL % 0.5 % (0.0-2.0); EOSINOPHIL % 0.1 % (0.0-4.0); HEMATOCRIT 34.5 % (35.0-46.0); HEMO FLAGS DIFF FINAL; LYMPH % 1.7 % (9.0-44.0); LYMPHOCYTE # 0.2 TH/MM3 (1.0-4.8); MEAN CELL VOLUME 83.7 FL (80.0-100.0); MEAN CORPUSCULAR HGB CONC 32.2 % (32.0-36.0); MONO % 5.5 % (0.0-8.0); NEUT % 92.2 % (16.0-70.0); PLATELET COUNT 140 TH/MM3 (150-450); RED BLOOD COUNT 4.13 MIL/MM3 (4.00-5.30); RED CELL DISTRIBUTION WIDTH 14.3 % (11.6-17.2); WHITE BLOOD COUNT 12.8 TH/MM3 (4.0-11.0)
[2017-01-30 22:13] VITALS: O2SAT 96
[2017-01-30 22:21] LABS: BICARBONATE 20.9 MEQ/L (21.0-32.0); POTASSIUM 4.7 MEQ/L (3.5-5.1)
[2017-01-30 22:47] LABS: CALCIUM-PROTEIN CORRECTED 6.7 MG/DL (8.5-10.1)
[2017-01-30] MEDS ORDERED: CALCIUM GLUCONATE 10% 1 GM/10 ML VIAL IV PUSH ONE (23:15)
[2017-01-30] MEDS ORDERED: CALCIUM GLUCONATE INJ 1 GM in DEXTROSE 5% IN WATER 100ML INJ 100 ML IV ONE ×2 (23:30)
[2017-01-31] VITALS (10 sets, daily range): BP systolic 115–161; BP diastolic 57–74; PULSE 82–103; RESP 17–19; TEMP 96–98.1; O2SAT 95–100
[2017-01-31] MEDS: INSULIN ASPART SUPPLEMENTAL SCALE SQ SCH ×4 (04:28→20:12)
[2017-01-31] MEDS: NYSTATIN 100,000 U/GM PWD 15 GM BTL TOPICAL SCH ×3 (04:29→22:00)
[2017-01-31] MEDS: LACTATED RINGER'S 1000 ML IV SCH (07:00)
--- NOTE | 2017-01-31 08:20 | HHI.FPPN ---
Subjective Remarks Patient seen and examined this morning. No acute events overnight with vital signs stable. Patient states surgery well yesterday and is currently in no acute pain. She has had one liquid bowel movement and continues to pass gas. NG tube is in place with bilious liquid in the suction container. She does endorse some mild chest tenderness to palpation, but does state that this is her baseline. Otherwise she has no complaints and denies any fevers, chills, shortness breath, NVD, or calf tenderness. (Alli Chaparro MD R1) Objective Vitals Vital Signs Date Time Temp Pulse Resp B/P Pulse Ox O2 Delivery O2 Flow Rate FiO2 01/31/17 07:37 99 Nasal Cannula 3.00 01/31/17 04:00 96.0 92 19 161/74 100 01/31/17 00:00 96.5 89 19 146/68 99 01/30/17 22:13 96 Nasal Cannula 3.00 01/30/17 20:00 96.8 77 19 165/76 93 01/30/17 20:00 80 01/30/17 17:00 95.5 80 24 139/70 100 01/30/17 15:45 97.4 81 17 135/78 99 Nasal Cannula 2 01/30/17 15:30 78 17 142/82 99 Nasal Cannula 2 01/30/17 15:15 77 17 138/82 99 Nasal Cannula 2 01/30/17 15:00 81 16 163/87 90 Nasal Cannula 2 01/30/17 14:45 87 16 149/83 99 Room Air 01/30/17 14:40 97.3 83 16 153/84 99 Simple Mask 6 I/O 01/30/17 01/30/17 01/30/17 01/31/17 01/31/17 01/31/17 07:00 15:00 23:00 07:00 15:00 23:00 Intake Total 1068 ml 1000 ml 286 ml 782 ml Output Total 600 ml 1080 ml 1100 ml Balance 468 ml 1000 ml -794 ml -318 ml Intake Oral 0 ml 0 ml 0 ml IV Total 1068 ml 286 ml 557 ml Tube Irrigant 225 ml Other 1000 ml Output Urine Total 500 ml 880 ml 1100 ml Gastric Drainage Total 100 ml 200 ml # Bowel Movements 0 0 (Alli Chaparro MD R1) Result Diagram: 01/30/17214301/30/172143 Objective Remarks GEN: Obese female lying in bed in no acute distress. NG tube in place with bilious drainage. CV: Distant heart sounds, but without obvious murmurs. Regular rate and rhythm. Mild tenderness to the mid sternum on palpation. LUNGS: Distant lung sounds, but otherwise CTAB. GI: Soft, tender to palpation, nondistended with positive bowel sounds. No palpable masses. EXT: No edema. No calf tenderness. NEURO/PSYCH: Awake, alert. Appropriate insight and judgment. Normal speech ( Alli Chaparro MD R1) A/P Assessment and Plan Ms. Marie is a 51 y/o CF with a PMHx of T2DM, CKD, and osteomyelitis s/p L forefoot amputation. She was admitted for gallstone ileus and acute on chronic kidney disease. Gallstone removal from the small bowel performed on 01/30/17. Discharge Planning 2-4 days pending recovery from surgery dw Dr. Zepeda (Alli Chaparro MD R1) Attending Attestation Patient seen and examined. Case reviewed and discussed with the resident team. Agree with plan of care as discussed with me and documented in the resident note. appreciate help surgery (Angelique Zepeda MD) Problem List: (1) Gallstone ileus Status: Acute Plan: Presented due to bilious vomiting. Subjective fever/chills. Found to have gallstone ileus on CT. -No leukocytosis, lactic acidosis resolved -NG tube in place with large output -CT abdomen: Probable gallstone ileus. Nonobstructing left renal stone. Small amount of air in the collecting system of the left kidney. Consulted Gen. surgery: Appreciate recommendations * Laparoscopic stone removal on 01/31/[address] Bridges, pathology pending * NG tube to be DC today * Advance diet to clears as tolerated * OOB as tolerated * Encouraged incentive spirometer and acapella (2) Acute on chronic kidney failure Status: Acute Plan: Patient with stage IV kidney disease, is not seen by nephrology as an outpt. Per chart review patient's last creatinine baseline in 2013 ranges from 1.84 - 2.3. -Improving creatinine Nephrology consulted: Appreciate recommendations * Acute renal failure may be due to sepsis, renal hypoperfusion. May have progressed to ATN. * Currently on D5 with 1/2NS at 50 ml/hr * Patient refused AM labs, will encourage patient to be compliant in order to monitor her kidney function (3) Analisa infection Status: Acute Plan: Patient found to have Analisa infection on pannus folds and anal region Topical nystatin to be applied to infected areas every 8 hours (4) Diabetes mellitus Status: Chronic Plan: Patient with history of diabetes mellitus. States her baseline BG is 110 to 150s and is currently not on any medication. Sliding scale insulin per protocol (5) Asthma Status: Chronic Plan: Patient with history of asthma Albuterol 2.5 mg every 2 hours when necessary for shortness of breath or wheezing (6) Nutrition, metabolism, and development symptoms Status: Acute Plan: Fluids: D5 1/2NS at 50 Electrolytes: Refused AM labs, continue to monitor Diet: Clear liquids as tolerated, advance slowly GI prophylaxis: Protonix DVT prophylaxis: SCDs, restart Heparin tonight (Alli Chapraro MD R1) Problem Qualifiers (1) Diabetes mellitus: Qualified Code: E11.620 - Type 2 diabetes mellitus with diabetic dermatitis, without long-term current use of insulin (2) Asthma: Qualified Code: J45.909 - Uncomplicated asthma, unspecified asthma severity Alli Chaparro MD R1 Jan 31, 2017 08:19 Angelique Zepeda MD Feb 03, 2017 12:52
[2017-01-31] MEDS: SODIUM CHLORIDE 0.9% FLUSH 5 ML FLUSH FLUSH SCH ×2 (08:41→21:00)
--- NOTE | 2017-01-31 08:53 | HHI.PR ---
Subjective Subjective Notes no acute issues, no nausea Objective Vitals/I&O Vital Signs Date Time Temp Pulse Resp B/P Pulse Ox O2 Delivery O2 Flow Rate FiO2 01/31/17 07:37 99 Nasal Cannula 3.00 01/31/17 04:00 96.0 92 19 161/74 Labs Laboratory Tests Test 01/30/17 01/30/17 01/30/17 01/30/17 12:21 16:50 17:00 21:44 Blood Type A NEGATIVE Antibody Screen NEGATIVE Blood Bank Comment Nasal Screen MRSA (PCR) NEGATIVE Urine Random Creatinine 98 Urine Microalbumin/Creatinine 630 Ratio White Blood Count 12.8 Red Blood Count 4.13 Hemoglobin 11.1 Hematocrit 34.5 Mean Corpuscular Volume 83.7 Mean Corpuscular Hemoglobin 27.0 Mean Corpuscular Hemoglobin 32.2 Concent Red Cell Distribution Width 14.3 Platelet Count 140 Mean Platelet Volume 9.6 Neutrophils (%) (Auto) 92.2 Lymphocytes (%) (Auto) 1.7 Monocytes (%) (Auto) 5.5 Eosinophils (%) (Auto) 0.1 Basophils (%) (Auto) 0.5 Neutrophils # (Auto) 11.9 Lymphocytes # (Auto) 0.2 Monocytes # (Auto) 0.7 Eosinophils # (Auto) 0.0 Basophils # (Auto) 0.1 CBC Comment DIFF FINAL Differential Comment Sodium Level 136 Potassium Level 4.7 Chloride Level 105 Carbon Dioxide Level 20.9 Anion Gap 10 Blood Urea Nitrogen 46 Creatinine 3.35 Estimat Glomerular Filtration 15 Rate Random Glucose 127 Calcium Level 6.8 Protein Corrected Calcium 6.7 Total Protein 7.4 Date/Time Procedure Status Source Growth 01/27/17 10:00 Urine Culture - Final Complete Urine Catheterized Urine 50-100,000 CFU/ML MIXED DORCAS... Radiology Last 48 hours Impressions Renal Ultrasound 01/27/17 0000 Signed Impressions: Service Date/Time: Friday, January 27, 2017 12:08 - CONCLUSION: 1. Echogenic kidneys which can be seen with medical renal disease. 2. Nonobstructing calculus measures 2.1 cm in the lower pole left kidney. 3. Nonvisualization of the bladder. There is air in the bladder on most recent CT scan of the abdomen/pelvis. This could be infectious and likely the main reason cannot visualize bladder. Anselmo Shelton MD Cardiovascular: Regular Lungs: Clear Abdomen: Other (incisional tenderness, scant blood on steri strips) A/P Assessment and Plan 51 year old female with an obstructing gallstone ileus,POD 1 Dx lap, lap removal of FB/gallstone -d/c ng -d/c gates -OOB -pain control -IS -Nephrology following for evaluation of renal failure -Sips of clears today Eduardo Bridges MD Jan 31, 2017 08:53
[2017-01-31 10:58] LABS: AUTOMATED NEUTROPHIL # 10.2 TH/MM3 (1.8-7.7); BASOPHIL # 0.1 TH/MM3 (0-0.2); BASOPHIL % 0.5 % (0.0-2.0); HEMATOCRIT 33.1 % (35.0-46.0); HEMO FLAGS DIFF FINAL; LYMPH % 5.3 % (9.0-44.0); LYMPHOCYTE # 0.6 TH/MM3 (1.0-4.8); MEAN CELL VOLUME 83.7 FL (80.0-100.0); MEAN CORPUSCULAR HEMOGLOBIN 26.9 PG (27.0-34.0); MEAN CORPUSCULAR HGB CONC 32.2 % (32.0-36.0); MONO % 4.4 % (0.0-8.0); NEUT % 89.8 % (16.0-70.0); PLATELET COUNT 155 TH/MM3 (150-450); RED BLOOD COUNT 3.95 MIL/MM3 (4.00-5.30); WHITE BLOOD COUNT 11.3 TH/MM3 (4.0-11.0)
[2017-01-31 11:31] LABS: BICARBONATE 26.9 MEQ/L (21.0-32.0); CALCIUM-PROTEIN CORRECTED 7.5 MG/DL (8.5-10.1); MAGNESIUM 2.1 MG/DL (1.5-2.5); POTASSIUM 3.9 MEQ/L (3.5-5.1); TOTAL BILIRUBIN ADULT 0.4 MG/DL (0.2-1.0)
--- NOTE | 2017-01-31 12:19 | HHI.NPPN ---
Subjective Renal Failure: Chronic, Acute, Stage IV History of Present Illness 51 year old with ckd and now with ARF, Gall stone Ileus NGT Interval History Renal function is better. NG tube removed. (Angelique Sharp) Review of Systems General Constitutional: Fatigue (Angelique Sharp) Gastrointestinal Gastrointestinal: Abdominal Pain, Nausea & Vomiting (Angelique Sharp) Objective Data Data 01/30/17 01/31/17 19:00 07:00 Intake Total 1000 ml 1068 ml Output Total 180 ml 2000 ml Balance 820 ml -932 ml Intake Oral 0 ml IV Total 843 ml Tube Irrigant 225 ml Other 1000 ml Output Urine Total 80 ml 1900 ml Gastric Drainage Total 100 ml 100 ml # Bowel Movements 0 Vital Signs Date Time Temp Pulse Resp B/P Pulse Ox O2 Delivery O2 Flow Rate FiO2 01/31/17 10:12 17 01/31/17 08:40 85 01/31/17 08:00 96.2 87 17 132/64 98 01/31/17 07:37 99 Nasal Cannula 3.00 01/31/17 04:00 96.0 92 19 161/74 100 01/31/17 00:00 96.5 89 19 146/68 99 01/30/17 22:13 96 Nasal Cannula 3.00 01/30/17 20:00 96.8 77 19 165/76 93 01/30/17 20:00 80 01/30/17 17:00 95.5 80 24 139/70 100 01/30/17 15:45 97.4 81 17 135/78 99 Nasal Cannula 2 01/30/17 15:30 78 17 142/82 99 Nasal Cannula 2 01/30/17 15:15 77 17 138/82 99 Nasal Cannula 2 01/30/17 15:00 81 16 163/87 90 Nasal Cannula 2 01/30/17 14:45 87 16 149/83 99 Room Air 01/30/17 14:40 97.3 83 16 153/84 99 Simple Mask 6 (Angelique Sharp) -: 01/31/17 1009 01/31/17 1009 Tubes & Lines: Gates (Angelique Sharp) Physical Exam General Appearance: Well Developed, Well Nourished, No Acute Distress, Comfortable, Pale (Angelique Sharp) Throat Throat Exam: Oral Mucosa [place] & Moist (Angelique Sharp) Neck Neck Exam: Neck Supple (Angelique Sharp) Pulmonary Resp Exam: Clear Bilaterally, Breath Sounds Equal (Angelique Sharp) Cardiology CV Exam: Normal Sinus Rhythm, Good Perfusion, Tachycardia (Angelique Sharp) Gastrointestinal/Abdomen GI Exam: Soft, Bowel Sounds Present, Distended (Angelique Sharp) Musculoskeletal MS Exam: Joints Intact, Normal Tone (Angelique Sharp) Integumentary Skin Exam: Warm, Dry (Angelique Sharp) Extremeties Extremities Exam: No Edema, Pedal Pulses Palpable (Angelique Sharp) Neurologic Neuro Exam: Alert, Awake, Oriented, Speech Clear, Moving All Extremities ( Angelique Sharp) Psychiatric Psych Exam: Appropriate Responses (Angelique Sharp) Assessment/Plan Discussed Condition With: Patient, Relative Assessment Summary: SHELLEY/Acute Renal Failure, Diabetes Mellitus, CKD Stage IV Electrolyte Assessment: Hypocalcemia, Hypokalemia Problem List: (1) Acute on chronic kidney failure Plan: Acute renal failure was due to sepsis, renal hypoperfusion ; may have progressed to ATN likely underlying diabetic nephropathy; less than one gram proteinuria renal function is better On IVF D51/2 NS @ 50cc/hr due to limited oral intake K corrected she is non oliguric with gates monitor renal function daily avoid nephrotoxins should be on SERGIO or ARB at discharge (2) Diabetes mellitus Plan: insulin as needed monitor glucose (3) Gallstone ileus Plan: she had laparoscopic gallstone removal today monitor clinically on clear liquids (4) Secondary hyperparathyroidism (of renal origin) Plan: severely low Vit D, hypocalcemic, PTH elevated begin calcitriol 0.25 mcg daily (Angelique Sharp) Plan patient was seen and examined. Agree with above assessment and plan. (Aneesh Rainey MD) Problem Qualifiers (1) Diabetes mellitus: Qualified Code: E11.620 - Type 2 diabetes mellitus with diabetic dermatitis, without long-term current use of insulin Angelique Sharp Jan 31, 2017 12:19 Aneesh Rainey MD Jan 31, 2017 16:46
[2017-01-31] MEDS: CALCITRIOL 0.25 MCG CAP PO SCH (12:44)
[2017-01-31] MEDS: PANTOPRAZOLE SODIUM 40 MG VIAL IV PUSH SCH (12:44)
[2017-01-31] MEDS: ACETAMINOPHEN/HYDROcodone 325 MG/10 MG TAB PO PRN (18:40)
[2017-01-31] MEDS: DEXT 5%-NACL 0.45% 1000 ML INJ 1,000 ML IV SCH (19:59)
[2017-02-01] VITALS (9 sets, daily range): BP systolic 112–134; BP diastolic 56–67; PULSE 97–115; RESP 16–18; TEMP 99.1–101.3; O2SAT 93–99
[2017-02-01] MEDS: LACTATED RINGER'S 1000 ML IV SCH (04:26)
[2017-02-01] MEDS: NYSTATIN 100,000 U/GM PWD 15 GM BTL TOPICAL SCH ×3 (04:43→20:05)
[2017-02-01] MEDS: HEPARIN SODIUM - SQ 10,000 UNITS/ML VIAL SQ SCH ×3 (04:43→18:01)
[2017-02-01 06:14] LABS: HEMATOCRIT 33.5 % (35.0-46.0); MEAN CELL VOLUME 83.2 FL (80.0-100.0); MEAN CORPUSCULAR HEMOGLOBIN 27.4 PG (27.0-34.0); MEAN CORPUSCULAR HGB CONC 32.9 % (32.0-36.0); PLATELET COUNT 128 TH/MM3 (150-450); RED BLOOD COUNT 4.03 MIL/MM3 (4.00-5.30); RED CELL DISTRIBUTION WIDTH 14.8 % (11.6-17.2); REVIEW FLAG FINAL; WHITE BLOOD COUNT 8.9 TH/MM3 (4.0-11.0)
[2017-02-01 06:39] LABS: BICARBONATE 25.8 MEQ/L (21.0-32.0); POTASSIUM 3.8 MEQ/L (3.5-5.1)
--- NOTE | 2017-02-01 06:51 | MP ---
cc: GWEN BRIDGES MD DATE OF SURGERY 01/30/2017 PREOPERATIVE DIAGNOSIS Small-bowel obstruction, gallstone ileus POSTOPERATIVE DIAGNOSIS Small-bowel obstruction, gallstone ileus PROCEDURE PERFORMED 1. Diagnostic laparoscopy 2. Laparoscopic removal of foreign body 3. Primary repair of enterotomy SURGEON Dr. 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 ESTIMATED BLOOD LOSS 5 cc. DRAINS None COMPLICATIONS None WOUND CLASSIFICATION Clean contaminated SPECIMENS Foreign body, suspected gallstones sent for pathology. FINDINGS Dilated obstructed small bowel, gallstones very large impacted in the distal ileum. INDICATION The patient is a 51-year-old female with multiple medical issues who presented with episodes of abdominal pain, nausea, and vomiting. She underwent CT scan finding with a large impacted foreign body suspicion for gallstones in her ileum. Decision was made for operative intervention including laparoscopic removal of foreign body and diagnostic laparoscopy. Discussed with the patient in detail. The patient stated understanding, agreed and would like to proceed. PROCEDURE OF THE DETAIL The patient was taken to the operating suite, placed in the supine position. She was prepped and draped in the usual sterile fashion after induction of general trache anesthesia. A brief time-out done stating correct patient, procedure, surgical site and we were all agreement with this. Attention first directed to the left upper quadrant where a small stab corrie incision was made. A Veress needle placed. Intraabdominal placement confirmed with a saline drop test. Abdomen insufflated to 50 mm pneumoperitoneum.. The Veress needle switched out for a 5-mm port and a 5 mm scope was introduced. No evidence of injury. On insufflation, the patient noted to have small omental adhesions to the anterior abdominal wall. This was taken down with electro Bovie cautery. On observation, the bowel was noted to be significantly dilated. Several other ports placed and a 5 mm right upper quadrant port followed by a 12 mm right lower quadrant port and an infraumbilical 5 mm port, and a 12 mm left lower quadrant port. Attention was directed to the right lower quadrant terminal ileum. The terminal ileum was grasped and proceeded to travel cephalad running the small bowel. Approximately two feet from the ileocecal valve was noted to be very hard rigid mass that was impacted in the ileum. The rest of the small bowel was run in its entirety noting dilation proximal to the foreign body and decompressed distally. There was no evidence of further gallstones present. Attention then directed to the mass. A Harmonic scalpel was used to incise longitudinally over the mass making a small incision and an enterotomy. This was done to expose the gallstone and attempts to remove it from the small bowel. The proximal bowel was clamped with a bowel grasper. Gallstone was identified and placed in an EndoCatch bag from the abdomen. Suction irrigation used to decompress the proximal portion of the bowel and the succus that was present. The bowel was then closed in a transverse fashion using a 2-0 Polysorb running suture. Then a Lembert running suture was placed with Endo-Stitch as well and noted to be patent. The identification of the small bowel noted to decompress and the entire contents was noted to be passing past the repaired enterotomy. There was no evidence of leaking. Suction irrigation used to minimally washout the bowel. Attempts to identify and examine the right upper quadrant gallbladder was done. This was unsuccessful. There was noted to be significant omental adhesions in a sock end and was protruding full exposure. The gallbladder was not completely identified due to significant adhesions to this area. Once we were content with this, the 12-mm port sites were closed with Pablo-Weeks suture closure device and 0-Vicryl. Next, local anesthetic injected at all port sites. Hemostasis obtained. The port sites were subsequently closed with a subcuticular 4-0 Monocryl suture. Sterile dressings including Mastisol and Steri-Strips were placed. The patient tolerated the procedure well. There were no intraoperative complications. All lap and instrument counts were correct at the end of the procedure. The patient was extubated and taken to the PACU. MD HUEY Islas/SANDY /8:20 PM /6:31 AM
[2017-02-01] MEDS: INSULIN ASPART SUPPLEMENTAL SCALE SQ SCH ×4 (07:00→20:04)
[2017-02-01 07:21] LABS: CALCIUM-PROTEIN CORRECTED 7.3 MG/DL (8.5-10.1)
[2017-02-01] MEDS: SODIUM CHLORIDE 0.9% FLUSH 5 ML FLUSH FLUSH SCH ×2 (07:26→20:04)
[2017-02-01] MEDS ORDERED: SODIUM CHLOR 0.9% 1000 ML INJ 1,000 ML IV SCH (09:15)
[2017-02-01] MEDS: CALCITRIOL 0.25 MCG CAP PO SCH (09:31)
--- NOTE | 2017-02-01 10:29 | RADRPT ---
EXAM DATE/TIME: 02/01/2017 09:21 [facility] COMPARISON: No previous studies available for comparison. INDICATIONS : Fever. MEDICAL HISTORY : Hypertension. Thyroid disease. Neuropathy. Migraine. Gastroparesis. GERD. Diabetes. SURGICAL HISTORY : Tonsillectomy. Toes amuptated, left foot. Lithotripsy. ENCOUNTER: Subsequent ACUITY: 1 day PAIN SCORE: 0/10 LOCATION: Bilateral chest FINDINGS: Mild atelectasis suspected left lung base. Right lung reasonably clear. No large effusion seen. No pn eumothorax. Heart size upper limits of normal. CONCLUSION: Mild left base atelectasis and borderline compensated cardiomegaly. Morales Cleveland MD on February 01, 2017 at 10:27 Board Certified Radiologist. This report was verified electronically.
[2017-02-01] MEDS ORDERED: DIATRIZOATE MEGLUM/DIATRIZOATE SOD 9 ML CUP PO ONE (11:00)
--- NOTE | 2017-02-01 11:41 | HHI.FPPN ---
Subjective Remarks No acute events overnight. Vital signs this morning did show fever to a high of 101.3 associated with tachycardia. This morning she reports having continued abdominal pain that is not worse than yesterday. She does endorse having a fever. Denies chest pain, SOB. She denies any acute concerns or questions but simply states that she feels unwell without further characterization. (Essie Coley MD R2) Objective Vitals Vital Signs Date Time Temp Pulse Resp B/P Pulse Ox O2 Delivery O2 Flow Rate FiO2 02/01/17 09:00 96 21 02/01/17 08:00 101.3 115 16 134/67 93 02/01/17 04:00 100.8 107 18 131/63 95 02/01/17 00:00 99.5 98 18 120/56 95 01/31/17 23:00 103 01/31/17 20:00 97 01/31/17 20:00 98.1 88 18 117/57 97 01/31/17 16:00 96.0 88 19 128/71 96 01/31/17 15:43 95 21 01/31/17 12:00 96.0 82 18 115/66 95 I/O 01/31/17 01/31/17 01/31/17 02/01/17 02/01/17 02/01/17 07:00 15:00 23:00 07:00 15:00 23:00 Intake Total 782 ml 925 ml 360 ml 508 ml Output Total 1100 ml 550 ml 150 ml 300 ml Balance -318 ml 375 ml 210 ml 208 ml Intake Oral 0 ml 475 ml 360 ml 120 ml IV Total 557 ml 450 ml 388 ml Tube Irrigant 225 ml Output Urine Total 1100 ml 550 ml 150 ml 300 ml # Bowel Movements 0 0 0 0 (Essie Coley MD R2) Result Diagram: 02/01/17 0510 02/01/17 0510 Imaging Last Impressions Chest X-Ray 02/01/17 0000 Signed Impressions: Service Date/Time: Wednesday, February 01, 2017 09:21 - CONCLUSION: Mild left base atelectasis and borderline compensated cardiomegaly. Morales Cleveland MD Abdomen/Pelvis CT 01/27/17 0840 Signed Impressions: Service Date/Time: Friday, January 27, 2017 10:15 - CONCLUSION: 1. Probable gallstone ileus. Stone is best seen on series 304, image 42. 2. Non-obstructing left renal stone in very small kidney. There is a small amount of air in the collecting system of the left kidney. David Brooke MD FACR Renal Ultrasound 01/27/17 0000 Signed Impressions: Service Date/Time: Friday, January 27, 2017 12:08 - CONCLUSION: 1. Echogenic kidneys which can be seen with medical renal disease. 2. Nonobstructing calculus measures 2.1 cm in the lower pole left kidney. 3. Nonvisualization of the bladder. There is air in the bladder on most recent CT scan of the abdomen/pelvis. This could be infectious and likely the main reason cannot visualize bladder. Anselmo Shelton MD Objective Remarks GEN: Obese female lying in bed in no acute distress. Resting in bed with towel over forehead. CV: Distant heart sounds, but without obvious murmurs. Increased rate but with normal rhythm. LUNGS: Distant lung sounds anteriorly but otherwise clear. Patient unwilling to turn to the side for better examination due to pain. GI: Soft, tender to palpation diffusely but with moderate/severe rebound tenderness. No palpable masses. NEURO/PSYCH: Awake, alert. Appropriate insight and judgment. Normal speech ( Essie Coley MD R2) A/P Assessment and Plan Ms. Marie is a 51 y/o CF with a PMHx of T2DM, CKD, and osteomyelitis s/p L forefoot amputation. She was admitted for gallstone ileus and acute on chronic kidney disease. Gallstone removal from the small bowel performed on 01/30/17. Discharge Planning 2-4 days pending recovery from surgery sdw Dr. Zepeda and Dr. Chaparro (Essie Coley MD R2) Attending Attestation Patient seen and examined. Case reviewed and discussed with the resident team. Agree with plan of care as discussed with me and documented in the resident note. (Angelique Zepeda MD) Problem List: (1) Gallstone ileus Status: Acute Plan: Presented due to bilious vomiting with subjective fever/chills. Found to have gallstone ileus on CT. Laparoscopic stone removal on 01/31/[address] Bridges. Acute onset of fever and tachycardia on 02/01 with rebound tenderness on exam. -Due to acute change in status: CXR, urine, blood cultures, Zosyn, Linezolid, Flagyl, Diflucan, fluids started for broad coverage as patient meets sepsis criteria. General surgery notified. See plan below for further detail. -No leukocytosis -CT abdomen: Probable gallstone ileus. Nonobstructing left renal stone. Small amount of air in the collecting system of the left kidney. Consulted Gen. surgery: Appreciate recommendations * Laparoscopic stone removal on 01/31/[address] Bridges, pathology pending * OOB as tolerated * Encouraged incentive spirometer and acapella * Recommended CT abdomen with oral contrast due to acute change in status. Will determine repeat surgery based on those findings. (2) Sepsis Status: Acute Plan: Laparoscopic stone removal on 01/31/[address] Bridges. Acute onset of fever and tachycardia on 02/01 with rebound tenderness on exam. Met sepsis criteria based on tachycardia and fever. -CXR: Mild left base atelectasis and borderline compensated cardiomegaly -CT abdomen with oral contrast ordered -Repeat UA ordered via straight catheter -Blood cultures ordered: Pending -General surgery notified Medications: * Zosyn (02/01- * Linezolid (02/01- * Diflucan (02/01-- * Metronidazole (- * Fluids, see rate below (3) Acute on chronic kidney failure Status: Acute Plan: Patient with stage IV kidney disease, is not seen by nephrology as an outpt. Per chart review patient's last creatinine baseline in 2013 ranges from 1.84 - 2.3. -Improving creatinine Nephrology consulted: Appreciate recommendations * Acute renal failure may be due to sepsis, renal hypoperfusion. May have progressed to ATN. * Likely underlying diabetic nephropathy * Should be on SERGIO/ARB on discharge (4) Analisa infection Status: Acute Plan: Patient found to have Analisa infection on pannus folds and anal region Topical nystatin to be applied to infected areas every 8 hours (5) Diabetes mellitus Status: Chronic Plan: Patient with history of diabetes mellitus. BG well controlled without supplemental insulin Sliding scale insulin per protocol (6) Asthma Status: Chronic Plan: Patient with history of asthma Albuterol 2.5 mg every 2 hours when necessary for shortness of breath or wheezing (7) Nutrition, metabolism, and development symptoms Status: Acute Plan: Fluids: D5 1/2NS at 100 Electrolytes: Hypo-Female but otherwise unremarkable. Daily Calcitriol Diet: Clear liquids as tolerated, advance slowly GI prophylaxis: Protonix DVT prophylaxis: SCDs, HOLD Heparin as patient may need surgery again (Essie Coley MD R2) Problem Qualifiers (1) Diabetes mellitus: Qualified Code: E11.620 - Type 2 diabetes mellitus with diabetic dermatitis, without long-term current use of insulin (2) Asthma: Qualified Code: J45.909 - Uncomplicated asthma, unspecified asthma severity Essie Coley MD R2 Feb 01, 2017 11:41 Angelique Zepeda MD Feb 03, 2017 12:52
[2017-02-01] MEDS: PIPERACIL-TAZO 2.25 GM PREMIX 50 ML IV SCH ×3 (11:51→20:05)
[2017-02-01] MEDS: DEXT 5%-NACL 0.45% 1000 ML INJ 1,000 ML IV SCH ×2 (11:52→20:04)
[2017-02-01] MEDS ORDERED: FLUCONAZOLE 400 MG PREMIX BAG 400 ML IV ONE (12:00)
[2017-02-01] MEDS: LINEZOLID 600 MG PREMIX 300 ML IV SCH ×2 (12:13→20:05)
[2017-02-01] MEDS: PANTOPRAZOLE SODIUM 40 MG VIAL IV PUSH SCH (12:14)
[2017-02-01] MEDS: metroNIDAZOLE 500 MG INJ 100 ML IV SCH ×2 (12:14→20:04)
[2017-02-01 12:36] LABS: BACTERIA, URINE OCC /hpf; BLOOD, URINE TRACE (NEG); GLUCOSE,URINE NEG (NEG); KETONE, URINE NEG (NEG); NITRITE,URINE NEG (NEG); SQUAMOUS EPITHELIAL CELL URINE 4 /hpf (0-5); URINE COLOR YELLOW (YELLW/STRAW)
[2017-02-01 12:38] LABS: COMMENT (UR) CATH-CULTURE IND; CULTURE IF INDICATED CATH CULTURE IND
[2017-02-01] MEDS ORDERED: NALOXONE HCL 0.4 MG/ML AMP IV PRN (12:45)
[2017-02-01] MEDS ORDERED: MORPHINE SULFATE 4 MG/ML INJ IV PRN (12:45)
[2017-02-01] MEDS ORDERED: CALCIUM GLUCONATE INJ 1 GM in DEXTROSE 5% IN WATER 100ML INJ 100 ML IV ONE ×2 (13:00)
[2017-02-01] MEDS: MORPHINE SULFATE 4 MG/ML INJ IV PRN (16:12)
--- NOTE | 2017-02-01 16:33 | RADRPT ---
EXAM DATE/TIME: 02/01/2017 15:37 [facility] COMPARISON: CT ABDOMEN & PELVIS W/O CONTRAST, January 27, 2017, 10:15. INDICATIONS : Status-post laparoscopy, now with abdominal pain. ORAL CONTRAST: Prescribed oral contrast ingested. RADIATION DOSE: 26.39 CTDIvol (mGy) MEDICAL HISTORY : Gastroparesis. SURGICAL HISTORY : Laparoscopy. ENCOUNTER: Initial ACUITY: 1 day PAIN SCALE: 7/10 LOCATION: Diffuse abdomen/pelvis TECHNIQUE: Volumetric scanning of the abdomen and pelvis was performed. Using automated exposure control and ad justment of the mA and/or kV according to patient size, radiation dose was kept as low as reasonably achievable to obtain optimal diagnostic quality images. FINDINGS: Previously seen gallbladder within the small bowel has been removed. There is a mildly prominent zayra joann small bowel throughout, probably mild ileus. I don't see an abrupt caliber change. No abscess, pe rforation or obstruction demonstrated. Patient has developed bilateral hydronephrosis and hydroureter, moderate on the right and moderate to severe on the left. I don't clearly see any obstructing stones and the allergy of the obstruction is not entirely certain. I do see a nonobstructing 7 mm stone in the left renal pelvis and a 3 mm nonob structing stone in the left lower pole. Biliary air again noted. The etiology of this is uncertain but perhaps related to the gallstone previ ously eroding through.. Focally dense consolidation has developed in the visualized left lower lobe. Otherwise there is mild atelectasis of the visualized lung bases. No acute bony abnormality demonstrated. Small cysts of both ovaries are again noted. Uterus within normal limits. CONCLUSION: 1. Mildly distended small bowel appears to represent an ileus. No point of obstruction clearly seen. The gallstone previously seen in the distal jejunum has been removed. 2. Bilateral hydronephrosis has developed, exact etiology uncertain. I don't clearly see an obstructi ng stone. There are nonobstructing stones of the left kidney as above. Morales Cleveland MD on February 01, 2017 at 16:24 Board Certified Radiologist. This report was verified electronically.
--- NOTE | 2017-02-01 16:44 | HHI.NPPN ---
Subjective Renal Failure: Chronic, Acute, Stage IV History of Present Illness 51 year old with ckd and now with ARF, Gall stone Ileus NGT Interval History Renal function better. She is febrile today. (Angelique Shrap) Review of Systems General Constitutional: Fatigue (Angelique Sharp) Gastrointestinal Gastrointestinal: Abdominal Pain, Nausea & Vomiting (Angelique Sharp) Objective Data Data 01/31/17 02/01/17 19:00 07:00 Intake Total 925 ml 868 ml Output Total 550 ml 450 ml Balance 375 ml 418 ml Intake Oral 475 ml 480 ml IV Total 450 ml 388 ml Output Urine Total 550 ml 450 ml # Bowel Movements 0 0 Vital Signs Date Time Temp Pulse Resp B/P Pulse Ox O2 Delivery O2 Flow Rate FiO2 02/01/17 16:17 18 02/01/17 12:15 99.6 101 16 95 02/01/17 12:00 115/60 02/01/17 09:00 96 21 02/01/17 08:00 101.3 115 16 134/67 93 02/01/17 04:00 100.8 107 18 131/63 95 02/01/17 00:00 99.5 98 18 120/56 95 01/31/17 23:00 103 01/31/17 20:00 97 01/31/17 20:00 98.1 88 18 117/57 97 (Angelique Sharp) -: 02/01/17 0510 02/01/17 0510 Microbiology 02/01/17 Aerobic Blood Culture, Received Pending 02/01/17 Anaerobic Blood Culture, Received Pending 02/01/17 Aerobic Blood Culture, Received Pending 02/01/17 Anaerobic Blood Culture, Received Pending 02/01/17 Urine Culture, Received Pending Tubes & Lines: Gates (Angelique Sharp) Physical Exam General Appearance: Well Developed, Well Nourished, No Acute Distress, Comfortable, Pale (Angelique Sharp) Throat Throat Exam: Oral Mucosa [place] & Moist (Angelique Sharp) Neck Neck Exam: Neck Supple (Angelique Sharp) Pulmonary Resp Exam: Clear Bilaterally, Breath Sounds Equal (Angelique Sharp) Cardiology CV Exam: Normal Sinus Rhythm, Good Perfusion, Tachycardia (Angelique Sharp) Gastrointestinal/Abdomen GI Exam: Soft, Bowel Sounds Present, Distended (Angelique Sharp) Musculoskeletal MS Exam: Joints Intact, Normal Tone (Angelique Sharp) Integumentary Skin Exam: Warm, Dry (Angelique Sharp) Extremeties Extremities Exam: No Edema, Pedal Pulses Palpable (Angelique Sharp) Neurologic Neuro Exam: Alert, Awake, Oriented, Speech Clear, Moving All Extremities ( Angelique Sharp) Psychiatric Psych Exam: Appropriate Responses (Angelique Sharp) Assessment/Plan Discussed Condition With: Patient, Relative Assessment Summary: [place]/Acute Renal Failure, Diabetes Mellitus, CKD Stage IV Electrolyte Assessment: Hypocalcemia, Hypokalemia Problem List: (1) Acute on chronic kidney failure Plan: Acute renal failure was due to sepsis, renal hypoperfusion ; may have progressed to ATN likely underlying diabetic nephropathy; less than one gram proteinuria renal function improving On IVF D51/2 NS @ 100cc/hr due to NPO status K corrected she is non oliguric with gates monitor renal function daily avoid nephrotoxins (2) Gallstone ileus Plan: s/p gallstone removal repeat CT now with fever, surgery to determine additional course depending on results NPO (3) Diabetes mellitus Plan: insulin as needed monitor glucose (4) Secondary hyperparathyroidism (of renal origin) Plan: severely low Vit D, hypocalcemic, PTH elevated continue calcitriol 0.25 mcg daily (Angelique Sharp) Problem List: (1) Acute on chronic kidney failure Plan: Acute renal failure was due to sepsis, renal hypoperfusion ; may have progressed to ATN likely underlying diabetic nephropathy; less than one gram proteinuria renal function improving On IVF D51/2 NS @ 100cc/hr due to NPO status K corrected she is non oliguric with gates monitor renal function daily avoid nephrotoxins (2) Gallstone ileus Plan: s/p gallstone removal repeat CT now with fever, surgery to determine additional course depending on results NPO (3) Diabetes mellitus Plan: insulin as needed monitor glucose (4) Secondary hyperparathyroidism (of renal origin) Plan: severely low Vit D, hypocalcemic, PTH elevated continue calcitriol 0.25 mcg daily Plan patient was seen and examined. Agree with above assessment and plan. Avoid nephrotoxic agents. Workup of febrile illness. Continue to monitor urine output and renal function. (Aneesh Rainey MD) Problem Qualifiers (1) Diabetes mellitus: Qualified Code: E11.620 - Type 2 diabetes mellitus with diabetic dermatitis, without long-term current use of insulin Angelique Sharp Feb 01, 2017 16:44 Aneesh Rainey MD Feb 02, 2017 10:14
--- NOTE | 2017-02-01 17:42 | HHI.PR ---
Subjective Subjective Notes pt with tachy and fever overnight, tolerating po, +flatus Objective Vitals/I&O Vital Signs Date Time Temp Pulse Resp B/P Pulse Ox O2 Delivery O2 Flow Rate FiO2 02/01/17 16:17 18 02/01/17 16:00 99.1 101 112/60 99 02/01/17 09:00 21 01/31/17 07:37 Nasal Cannula 3.00 Labs Laboratory Tests Test 02/01/17 02/01/17 02/01/17 05:10 08:27 11:45 White Blood Count 8.9 Red Blood Count 4.03 Hemoglobin 11.0 Hematocrit 33.5 Mean Corpuscular Volume 83.2 Mean Corpuscular Hemoglobin 27.4 Mean Corpuscular Hemoglobin 32.9 Concent Red Cell Distribution Width 14.8 Platelet Count 128 Mean Platelet Volume 10.5 Sodium Level 139 Potassium Level 3.8 Chloride Level 105 Carbon Dioxide Level 25.8 Anion Gap 8 Blood Urea Nitrogen 39 Creatinine 2.84 Estimat Glomerular Filtration 18 Rate Random Glucose 102 Calcium Level 7.3 Protein Corrected Calcium 7.3 Phosphorus Level 2.9 Total Protein 7.1 Albumin 2.4 Nasal Screen MRSA (PCR) NEGATIVE Urine Color YELLOW Urine Turbidity HAZY Urine pH 6.0 Urine Specific [place] 1.013 Urine Protein 100 Urine Glucose (UA) NEG Urine Ketones NEG Urine Occult Blood TRACE Urine Nitrite NEG Urine Bilirubin NEG Urine Urobilinogen LESS THAN 2.0 Urine Leukocyte Esterase MOD Urine RBC 6 Urine WBC 14 Urine Squamous Epithelial 4 Cells Urine Bacteria OCC Microscopic Urinalysis Comment CATH-CULTURE IND Date/Time Procedure Status Source Growth 02/01/17 11:45 Urine Culture Received Urine Catheterized Urine Pending 02/01/17 10:43 Aerobic Blood Culture Received Blood Peripheral Pending 02/01/17 10:43 Anaerobic Blood Culture Received Blood Peripheral Pending Radiology Last 48 hours Impressions Renal Ultrasound 01/27/17 0000 Signed Impressions: Service Date/Time: Friday, January 27, 2017 12:08 - CONCLUSION: 1. Echogenic kidneys which can be seen with medical renal disease. 2. Nonobstructing calculus measures 2.1 cm in the lower pole left kidney. 3. Nonvisualization of the bladder. There is air in the bladder on most recent CT scan of the abdomen/pelvis. This could be infectious and likely the main reason cannot visualize bladder. Anselmo Shelton MD Abdomen: Other (diffuse ttp, mild rebound, incision c/d/i) A/P Assessment and Plan 51 year old female with an obstructing gallstone ileus,POD 2 Dx lap, lap removal of FB/gallstone - npo -iv abx -stat ct scan - pain control - oob -dvt ppx Eduardo Bridges MD Feb 01, 2017 17:42
[2017-02-01] MEDS: RESP: ALBUTEROL 2.5 MG/IPRATROPIUM 0.5 MG NEB (SCH) NEB (20:24)
[2017-02-02] VITALS (8 sets, daily range): BP systolic 129–154; BP diastolic 60–71; PULSE 73–106; RESP 17–20; TEMP 99.1–101.8; O2SAT 93–99
[2017-02-02] MEDS: HEPARIN SODIUM - SQ 10,000 UNITS/ML VIAL SQ SCH ×3 (02:30→18:37)
[2017-02-02] MEDS: metroNIDAZOLE 500 MG INJ 100 ML IV SCH ×3 (02:31→19:45)
[2017-02-02] MEDS: NYSTATIN 100,000 U/GM PWD 15 GM BTL TOPICAL SCH ×3 (04:25→19:46)
[2017-02-02] MEDS: PIPERACIL-TAZO 2.25 GM PREMIX 50 ML IV SCH ×4 (04:25→19:46)
[2017-02-02 05:21] LABS: AUTOMATED NEUTROPHIL # 4.3 TH/MM3 (1.8-7.7); BASOPHIL % 0.3 % (0.0-2.0); EOSINOPHIL # 0.1 TH/MM3 (0-0.4); EOSINOPHIL % 2.5 % (0.0-4.0); HEMATOCRIT 29.5 % (35.0-46.0); LYMPH % 9.4 % (9.0-44.0); LYMPHOCYTE # 0.5 TH/MM3 (1.0-4.8); MEAN CELL VOLUME 83.1 FL (80.0-100.0); MEAN CORPUSCULAR HEMOGLOBIN 26.8 PG (27.0-34.0); MEAN CORPUSCULAR HGB CONC 32.3 % (32.0-36.0); MONO % 5.3 % (0.0-8.0); NEUT % 82.5 % (16.0-70.0); PLATELET COUNT 98 TH/MM3 (150-450); RED BLOOD COUNT 3.55 MIL/MM3 (4.00-5.30); RED CELL DISTRIBUTION WIDTH 14.4 % (11.6-17.2); WHITE BLOOD COUNT 5.3 TH/MM3 (4.0-11.0)
[2017-02-02 05:26] LABS: HEMO FLAGS AUTO DIFF
[2017-02-02] MEDS: MORPHINE SULFATE 4 MG/ML INJ IV PRN ×2 (05:30→23:11)
[2017-02-02 05:43] LABS: ALT (GPT) 9 U/L (10-53); ANION GAP 11 MEQ/L (5-15); AST (GOT) 16 U/L (15-37); BICARBONATE 22.3 MEQ/L (21.0-32.0); BLOOD UREA NITROGEN 36 MG/DL (7-18); CHLORIDE 103 MEQ/L (98-107); GLOMERULAR FILTRATION RATE 19 ML/MIN (>89); POTASSIUM 3.7 MEQ/L (3.5-5.1); SODIUM (NA) 136 MEQ/L (136-145)
[2017-02-02 05:45] LABS: ALKALINE PHOSPHATASE 76 U/L (45-117); TOTAL BILIRUBIN ADULT 0.7 MG/DL (0.2-1.0)
[2017-02-02] MEDS: INSULIN ASPART SUPPLEMENTAL SCALE SQ SCH ×4 (06:09→19:45)
[2017-02-02] MEDS: DEXT 5%-NACL 0.45% 1000 ML INJ 1,000 ML IV SCH ×2 (07:45→19:44)
[2017-02-02] MEDS: RESP: ALBUTEROL 2.5 MG/IPRATROPIUM 0.5 MG NEB (SCH) NEB ×3 (08:00→19:30)
[2017-02-02 08:10] LABS: PLATELET ESTIMATE SMEAR LOW (NORMAL); PLATELET MORPHOLOGY ENLARGED (NORMAL)
[2017-02-02 08:11] LABS: SCAN/DIFF AUTO DIFF CONFIRMED
[2017-02-02] MEDS: LINEZOLID 600 MG PREMIX 300 ML IV SCH ×2 (09:32→19:46)
[2017-02-02] MEDS: CALCITRIOL 0.25 MCG CAP PO SCH (09:32)
[2017-02-02] MEDS: SODIUM CHLORIDE 0.9% FLUSH 5 ML FLUSH FLUSH SCH ×2 (09:33→19:44)
--- NOTE | 2017-02-02 11:20 | HHI.NPPN ---
Subjective Renal Failure: Chronic, Acute, Stage IV History of Present Illness 51 year old with ckd and now with ARF, Gall stone Ileus NGT Interval History Renal function is better. CT showing bilateral hydronephrosis. NPO currently. ( Angelique Sharp) Review of Systems General Constitutional: Fatigue (Angelique Sharp) Gastrointestinal Gastrointestinal: Abdominal Pain (Angelique Sharp) Objective Data Data 02/01/17 02/02/17 19:00 07:00 Intake Total 1184 ml 1475 ml Output Total 500 ml Balance 684 ml 1475 ml Intake Oral 575 ml IV Total 609 ml 1475 ml Output Urine Total 500 ml # Voids 2 # Bowel Movements 0 0 Vital Signs Date Time Temp Pulse Resp B/P Pulse Ox O2 Delivery O2 Flow Rate FiO2 02/02/17 08:00 99.8 88 18 153/69 97 02/02/17 04:00 99.7 97 18 154/71 96 02/02/17 00:00 101.8 106 20 143/70 96 02/01/17 20:24 99 21 02/01/17 20:00 99.8 105 18 132/62 98 02/01/17 20:00 97 02/01/17 16:17 18 02/01/17 16:00 99.1 101 17 112/60 99 02/01/17 12:15 99.6 101 16 95 02/01/17 12:00 115/60 (Angelique Sharp) -: 02/02/17 0450 02/02/17 0450 Microbiology 02/01/17 Urine Culture, Received Pending Imaging Last 72 hours Impressions Chest X-Ray 02/01/17 0000 Signed Impressions: Service Date/Time: Wednesday, February 01, 2017 09:21 - CONCLUSION: Mild left base atelectasis and borderline compensated cardiomegaly. Morales Cleveland MD Abdomen/Pelvis CT 02/01/17 0000 Signed Impressions: Service Date/Time: Wednesday, February 01, 2017 15:37 - CONCLUSION: 1. Mildly distended small bowel appears to represent an ileus. No point of obstruction clearly seen. The gallstone previously seen in the distal jejunum has been removed. 2. Bilateral hydronephrosis has developed, exact etiology uncertain. I don't clearly see an obstructing stone. There are nonobstructing stones of the left kidney as above. Morales Cleveland MD Tubes & Lines: Gates (Aron,Angelique B. [employer]) Physical Exam General Appearance: Well Developed, Well Nourished, No Acute Distress, Comfortable, Pale (Aron,Angelique B. [employer]) Throat Throat Exam: Oral Mucosa [place] & Moist (Aron,Angelique B. [employer]) Neck Neck Exam: Neck Supple (Aron,Angelique B. [employer]) Pulmonary Resp Exam: Clear Bilaterally, Breath Sounds Equal (Aron,Angelique B. [employer]) Cardiology CV Exam: Normal Sinus Rhythm, Good Perfusion, Tachycardia (Aron,Angelique B. [employer]) Gastrointestinal/Abdomen GI Exam: Soft, Bowel Sounds Present, Distended (Aron,Angelique B. [employer]) Musculoskeletal MS Exam: Joints Intact, Normal Tone (Aron,Angelique B. [employer]) Integumentary Skin Exam: Warm, Dry (Aron,Angelique B. [employer]) Extremeties Extremities Exam: No Edema, Pedal Pulses Palpable (Aron,Angelique B. [employer]) Neurologic Neuro Exam: Alert, Awake, Oriented, Speech Clear, Moving All Extremities ( Aron,Angelique B. [employer]) Psychiatric Psych Exam: Appropriate Responses (Aron,Angelique B. [employer]) Assessment/Plan Discussed Condition With: Patient, Relative Assessment Summary: SHELLEY/Acute Renal Failure, Diabetes Mellitus, CKD Stage IV Electrolyte Assessment: Hypocalcemia, Hypokalemia Problem List: (1) Acute on chronic kidney failure Plan: Acute renal failure was due to sepsis, renal hypoperfusion ; may have progressed to ATN likely underlying diabetic nephropathy; less than one gram proteinuria renal function improving On IVF D51/2 NS @ reduce rate to 70 cc/hr; due to NPO status K corrected gates was removed, however she has developed bilateral hydronephrosis, no stone visualized ordered gates to be replaced, she is refusing it now; post voiding residual ordered; gates can be placed during surgery if possible monitor renal function daily avoid nephrotoxins (2) Gallstone ileus Plan: s/p gallstone removal repeat CT reviewed, NPO now, may need repeat ex lap surgery to determine additional course depending on results on IVF (3) Diabetes mellitus Plan: insulin as needed monitor glucose (4) Secondary hyperparathyroidism (of renal origin) Plan: severely low Vit D, hypocalcemic, PTH elevated continue calcitriol 0.25 mcg daily (Angelique Sharp) Plan patient was seen and examined. Bilateral hydronephrosis is noted. Refused Gates. Renal function is better. 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
[2017-02-02] MEDS ORDERED: BISACODYL 10 MG SUPP PR PRN (11:45)
[2017-02-02] MEDS: FLUCONAZOLE 200 MG PREMIX BAG 100 ML IV SCH (12:00)
--- NOTE | 2017-02-02 12:14 | HHI.FPPN ---
Subjective Remarks Patient seen and examined this morning. No acute events overnight. Patient had fever up to 101.8 with mild tachycardia to 106 overnight. She states that she feels better today and that her ABD pain has decreased from yesterday. She does complain of feeling feverish overnight with some episodes of diaphoresis. She states that she has not passed gas or had a bowel movement. Otherwise she has no complaints and denies any chest pain, SOB, NVD, or calf tenderness. (Alli Chaparro MD R1) Objective Vitals Vital Signs Date Time Temp Pulse Resp B/P Pulse Ox O2 Delivery O2 Flow Rate FiO2 02/02/17 08:00 99.8 88 18 153/69 97 02/02/17 04:00 99.7 97 18 154/71 96 02/02/17 00:00 101.8 106 20 143/70 96 02/01/17 20:24 99 21 02/01/17 20:00 99.8 105 18 132/62 98 02/01/17 20:00 97 02/01/17 16:17 18 02/01/17 16:00 99.1 101 17 112/60 99 02/01/17 12:15 99.6 101 16 95 I/O 02/01/17 02/01/17 02/01/17 02/02/17 02/02/17 02/02/17 07:00 15:00 23:00 07:00 15:00 23:00 Intake Total 508 ml 1184 ml 765 ml 710 ml 0 ml Output Total 300 ml 500 ml Balance 208 ml 684 ml 765 ml 710 ml 0 ml Intake Oral 120 ml 575 ml 0 ml IV Total 388 ml 609 ml 765 ml 710 ml Output Urine Total 300 ml 500 ml # Voids 1 1 # Bowel Movements 0 0 0 0 (Alli Chaparro MD R1) Result Diagram: 02/02/17 0450 02/02/17 0450 Objective Remarks GEN: Obese female lying in bed in no acute distress. Resting in bed with towel over forehead. CV: Distant heart sounds, but without obvious murmurs. Increased rate but with normal rhythm. LUNGS: Distant lung sounds anteriorly but otherwise clear. Patient unwilling to turn to the side for better examination due to pain. GI: Soft, tender to palpation diffusely but with moderate/severe rebound tenderness. No palpable masses. BS+. NEURO/PSYCH: AAOx3. Normal speech (Alli Chaparro MD R1) A/P Assessment and Plan Ms. Marie is a 51 y/o CF with a PMHx of T2DM, CKD, and osteomyelitis s/p L forefoot amputation. She was admitted for gallstone ileus and acute on chronic kidney disease. Gallstone removal from the small bowel performed on 01/30/17. Discharge Planning 2-4 days pending recovery from surgery sdw Dr. Zepeda and Dr. Chaparro (Alli Chaparro MD R1) Attending Attestation Patient seen and examined. Case reviewed and discussed with the resident team. Agree with plan of care as discussed with me and documented in the resident note. continuing fevers, have very broad abx coverage (Angelique Zepeda MD) Problem List: (1) Gallstone ileus Status: Acute Plan: Presented due to bilious vomiting with subjective fever/chills. Found to have gallstone ileus on CT. Laparoscopic stone removal on 01/31/[address] Bridges. Acute onset of fever and tachycardia on 02/01 with rebound tenderness on exam. -Due to acute change in status: CXR, urine, blood cultures, Zosyn, Linezolid, Flagyl, Diflucan, fluids started for broad coverage as patient meets sepsis criteria. General surgery notified. See plan below for further detail. -No leukocytosis -CT abdomen: Probable gallstone ileus. Nonobstructing left renal stone. Small amount of air in the collecting system of the left kidney. Consulted Gen. surgery: Appreciate recommendations * Laparoscopic stone removal on 01/31/[address] Bridges, pathology pending * OOB as tolerated * Encouraged incentive spirometer and acapella * CT ABD 02/01: Mildly distended small bowel without signs of obstruction. Gallstone has been removed. BL hydronephrosis has developed with uncertain etiology. Nonobstructing stones of the L kidney. Medications: -Linezolid (02/01- -Flagyl (02/01- -Zosyn (02/01- -Fluconazole (02/01- (2) Sepsis Status: Acute Plan: Laparoscopic stone removal on 01/31/[address] Bridges. Acute onset of fever and tachycardia on 02/01 with rebound tenderness on exam. Met sepsis criteria based on tachycardia and fever. -CXR: Mild left base atelectasis and borderline compensated cardiomegaly -CT abdomen with oral contrast ordered -Repeat UA ordered via straight catheter -Blood cultures ordered: Pending -General surgery notified Medications: * Zosyn (02/01- * Linezolid (02/01- * Diflucan (02/01-- * Metronidazole (3/- * Fluids, see rate below (3) Acute on chronic kidney failure Status: Acute Plan: Patient with stage IV kidney disease, is not seen by nephrology as an outpt. Per chart review patient's last creatinine baseline in 2013 ranges from 1.84 - 2.3. -Improving creatinine Nephrology consulted: Appreciate recommendations * Acute renal failure may be due to sepsis, renal hypoperfusion. May have progressed to ATN. * Likely underlying diabetic nephropathy * Should be on SERGIO/ARB on discharge Urology consulted, Appreciate Recommendations * CT ABD 02/01: Mildly distended small bowel without signs of obstruction. Gallstone has been removed. BL hydronephrosis has developed with uncertain etiology. Nonobstructing stones of the L kidney. (4) Analisa infection Status: Acute Plan: Patient found to have Analisa infection on pannus folds and anal region Topical nystatin to be applied to infected areas every 8 hours (5) Diabetes mellitus Status: Chronic Plan: Patient with history of diabetes mellitus. BG well controlled without supplemental insulin Sliding scale insulin per protocol (6) Asthma Status: Chronic Plan: Patient with history of asthma Albuterol 2.5 mg every 2 hours when necessary for shortness of breath or wheezing (7) Nutrition, metabolism, and development symptoms Status: Acute Plan: Fluids: D5 1/2NS at 100 Electrolytes: Improving Creatinine. Daily Calcitriol Diet: Clear liquids as tolerated, advance slowly GI prophylaxis: Protonix DVT prophylaxis: SCDs, Heparin (Alli Chaparro MD R1) Problem Qualifiers (1) Diabetes mellitus: Qualified Code: E11.620 - Type 2 diabetes mellitus with diabetic dermatitis, without long-term current use of insulin (2) Asthma: Qualified Code: J45.909 - Uncomplicated asthma, unspecified asthma severity Alli Chaparro MD R1 Feb 02, 2017 12:14 Angelique Zepeda MD Feb 03, 2017 12:53
[2017-02-02] MEDS: PANTOPRAZOLE SODIUM 40 MG VIAL IV PUSH SCH (13:13)
--- NOTE | 2017-02-02 14:13 | HHI.PR ---
Subjective Subjective Notes wbc normal, fever spike overnight, pain better Objective Vitals/I&O Vital Signs Date Time Temp Pulse Resp B/P Pulse Ox O2 Delivery O2 Flow Rate FiO2 02/02/17 12:00 99.9 73 18 149/69 98 02/01/17 20:24 21 01/31/17 07:37 Nasal Cannula 3.00 Labs Laboratory Tests Test 02/02/17 02/02/17 04:50 04:58 White Blood Count 5.3 Red Blood Count 3.55 Hemoglobin 9.5 Hematocrit 29.5 Mean Corpuscular Volume 83.1 Mean Corpuscular Hemoglobin 26.8 Mean Corpuscular Hemoglobin 32.3 Concent Red Cell Distribution Width 14.4 Platelet Count 98 Mean Platelet Volume 10.0 Neutrophils (%) (Auto) 82.5 Lymphocytes (%) (Auto) 9.4 Monocytes (%) (Auto) 5.3 Eosinophils (%) (Auto) 2.5 Basophils (%) (Auto) 0.3 Neutrophils # (Auto) 4.3 Lymphocytes # (Auto) 0.5 Monocytes # (Auto) 0.3 Eosinophils # (Auto) 0.1 Basophils # (Auto) 0.0 CBC Comment AUTO DIFF Differential Comment AUTO DIFF CONFIRMED Platelet Estimate LOW Platelet Morphology Comment ENLARGED Sodium Level 136 Potassium Level 3.7 Chloride Level 103 Carbon Dioxide Level 22.3 Anion Gap 11 Blood Urea Nitrogen 36 Creatinine 2.67 Estimat Glomerular Filtration 19 Rate Random Glucose 108 Calcium Level 7.5 Total Bilirubin 0.7 Aspartate Amino Transf 16 (AST/SGOT) Alanine Aminotransferase 9 (ALT/SGPT) Alkaline Phosphatase 76 Total Protein 6.4 Albumin 2.1 Lactic Acid Level 0.6 Date/Time Procedure Status Source Growth 02/01/17 11:45 Urine Culture - Preliminary Resulted Urine Catheterized Urine Gram Negative Jeffrey 02/01/17 10:43 Aerobic Blood Culture - Preliminary Resulted Blood Peripheral NO GROWTH IN 1 DAY 02/01/17 10:43 Anaerobic Blood Culture - Preliminary Resulted Blood Peripheral NO GROWTH IN 1 DAY Radiology Last 48 hours Impressions Renal Ultrasound 01/27/17 0000 Signed Impressions: Service Date/Time: Friday, January 27, 2017 12:08 - CONCLUSION: 1. Echogenic kidneys which can be seen with medical renal disease. 2. Nonobstructing calculus measures 2.1 cm in the lower pole left kidney. 3. Nonvisualization of the bladder. There is air in the bladder on most recent CT scan of the abdomen/pelvis. This could be infectious and likely the main reason cannot visualize bladder. Anselmo Shelton MD Cardiovascular: Regular Abdomen: Other (soft mild ttp, no peritoneal signs) A/P Assessment and Plan 51 year old female with an obstructing gallstone ileus,POD 3 Dx lap, lap removal of FB/gallstone - clears -iv abx - pain control - oob -dvt ppx Eduardo Bridges MD Feb 02, 2017 14:12
[2017-02-02] MEDS: DOCUSATE SODIUM 50 MG/SENNA 8.6 MG TAB PO SCH (19:45)
[2017-02-03] VITALS (9 sets, daily range): BP systolic 124–165; BP diastolic 64–84; PULSE 66–88; RESP 17–20; TEMP 95.5–99.1; O2SAT 96–100
[2017-02-03] MEDS: HEPARIN SODIUM - SQ 10,000 UNITS/ML VIAL SQ SCH ×3 (01:46→18:18)
[2017-02-03] MEDS: metroNIDAZOLE 500 MG INJ 100 ML IV SCH ×3 (03:41→19:28)
[2017-02-03] MEDS: PIPERACIL-TAZO 2.25 GM PREMIX 50 ML IV SCH ×4 (03:41→19:28)
[2017-02-03] MEDS: NYSTATIN 100,000 U/GM PWD 15 GM BTL TOPICAL SCH ×3 (05:14→19:29)
[2017-02-03 05:47] LABS: HEMATOCRIT 26.8 % (35.0-46.0); MEAN CELL VOLUME 81.7 FL (80.0-100.0); MEAN CORPUSCULAR HEMOGLOBIN 27.4 PG (27.0-34.0); MEAN CORPUSCULAR HGB CONC 33.5 % (32.0-36.0); PLATELET COUNT 105 TH/MM3 (150-450); RED BLOOD COUNT 3.28 MIL/MM3 (4.00-5.30); RED CELL DISTRIBUTION WIDTH 14.6 % (11.6-17.2); REVIEW FLAG FINAL; WHITE BLOOD COUNT 4.5 TH/MM3 (4.0-11.0)
[2017-02-03 06:18] LABS: BICARBONATE 23.3 MEQ/L (21.0-32.0); CALCIUM-PROTEIN CORRECTED 8.1 MG/DL (8.5-10.1); POTASSIUM 3.4 MEQ/L (3.5-5.1); TOTAL BILIRUBIN ADULT 0.5 MG/DL (0.2-1.0)
[2017-02-03] MEDS: INSULIN ASPART SUPPLEMENTAL SCALE SQ SCH ×4 (06:29→19:27)
[2017-02-03] MEDS: CALCITRIOL 0.25 MCG CAP PO SCH (08:42)
[2017-02-03] MEDS: LINEZOLID 600 MG PREMIX 300 ML IV SCH ×2 (08:43→19:27)
[2017-02-03] MEDS: DOCUSATE SODIUM 50 MG/SENNA 8.6 MG TAB PO SCH ×2 (08:43→19:28)
[2017-02-03] MEDS: SODIUM CHLORIDE 0.9% FLUSH 5 ML FLUSH FLUSH SCH ×2 (08:47→19:27)
[2017-02-03] MEDS: RESP: ALBUTEROL 2.5 MG/IPRATROPIUM 0.5 MG NEB (SCH) NEB ×3 (08:50→19:04)
[2017-02-03] MEDS ORDERED: POLYETHYLENE GLYCOL 17 GM PKG PO SCH (09:00)
[2017-02-03] MEDS: DEXT 5%-NACL 0.45% 1000 ML INJ 1,000 ML IV SCH (11:17)
[2017-02-03] MEDS: MORPHINE SULFATE 4 MG/ML INJ IV PRN (11:31)
--- NOTE | 2017-02-03 12:29 | HHI.FPPN ---
Subjective Remarks Ms Marie is better today. She is hungry and hoping her lunch comes soon. She has less pain and points to her incision on the left where the steri strips are as the site of her pain today. She was lying comfortably in her chair watching tv and appears improved where she is more mobile. She reports she is urinating well. She is doing well on clear liquids and hopes to advance to full liquids soon. She as yet has had no bowel movements recorded but has great bowel sounds today. Objective Vitals Vital Signs Date Time Temp Pulse Resp B/P Pulse Ox O2 Delivery O2 Flow Rate FiO2 02/03/17 11:36 18 02/03/17 08:00 98.8 74 18 135/68 96 02/03/17 04:06 96.9 73 20 165/76 97 02/03/17 00:00 99.1 79 20 136/64 99 02/02/17 20:56 80 02/02/17 20:00 99.1 84 20 131/60 99 02/02/17 19:31 93 21 02/02/17 16:00 99.4 85 17 129/64 97 I/O 02/02/17 02/02/17 02/02/17 02/03/17 02/03/17 02/03/17 07:00 15:00 23:00 07:00 15:00 23:00 Intake Total 710 ml 0 ml 760 ml 760 ml 120 ml Output Total 900 ml Balance 710 ml -900 ml 760 ml 760 ml 120 ml Intake Oral 0 ml 120 ml IV Total 710 ml 760 ml 760 ml Output Urine Total 900 ml # Voids 1 # Bowel Movements 0 0 Result Diagram: 02/03/17 0515 02/03/17 0515 Objective Remarks GEN: Obese female sitting in chair in no acute distress. she wants to eat CV: Distant heart sounds, but without obvious murmurs. Increased rate but with normal rhythm. LUNGS: Distant lung sounds anteriorly but otherwise clear. GI: Soft, tender to palpation diffusely but with no rebound tenderness. No palpable masses. BS+. NEURO/PSYCH: AAOx3. Normal speech Urinary Catheter: No Vascular Central Line Catheter: No A/P Assessment and Plan Ms. Marie is a 51 y/o CF with a PMHx of T2DM, CKD, and osteomyelitis s/p L forefoot amputation. She was admitted for gallstone ileus and acute on chronic kidney disease. Gallstone removal from the small bowel performed on 01/30/17. Discharge Planning 2-4 days pending recovery from surgery sdw Dr. Zepeda and Dr. Chaparro Problem List: (1) Gallstone ileus Status: Acute Plan: Presented due to bilious vomiting with subjective fever/chills. Found to have gallstone ileus on CT. Laparoscopic stone removal on 01/31/[address] Bridges. Acute onset of fever and tachycardia on 02/01 with rebound tenderness on exam. -Due to acute change in status: CXR, urine, blood cultures, Zosyn, Linezolid, Flagyl, Diflucan, fluids started for broad coverage as patient meets sepsis criteria. General surgery notified. See plan below for further detail. -No leukocytosis -CT abdomen: Probable gallstone ileus. Nonobstructing left renal stone. Small amount of air in the collecting system of the left kidney. Consulted Gen. surgery: Appreciate recommendations * Laparoscopic stone removal on 01/31/[address] Bridges, pathology shows a huge ( 5 cm in it's broadest dimension) gallstone * OOB as tolerated * Encouraged incentive spirometer and acapella * CT ABD 02/01: Mildly distended small bowel without signs of obstruction. Gallstone has been removed. BL hydronephrosis has developed with uncertain etiology. Nonobstructing stones of the L kidney. Medications: -Linezolid (02/01- -Flagyl (02/01- -Zosyn (02/01- -Fluconazole (02/01- (2) Sepsis Status: Acute Plan: Laparoscopic stone removal on 01/31/[address] Bridges. Acute onset of fever and tachycardia on 02/01 with rebound tenderness on exam. Met sepsis criteria based on tachycardia and fever. -CXR: Mild left base atelectasis and borderline compensated cardiomegaly -CT abdomen with oral contrast ordered -Repeat UA ordered via straight catheter shows pseudomonas sensitive to everything tested -Blood cultures ordered: negative so far -General surgery notified -consider discontinuing abx as she is improving and has negative cultures except for urine Medications: * Zosyn (02/01- * Linezolid (02/01- * Diflucan (02/01-- * Metronidazole (- * Fluids, see rate below (3) Acute on chronic kidney failure Status: Acute Plan: Patient with stage IV kidney disease, is not seen by nephrology as an outpt. Per chart review patient's last creatinine baseline in 2013 ranges from 1.84 - 2.3. -Improving creatinine slowly but daily showing some improvement Nephrology consulted: Appreciate recommendations * Acute renal failure may be due to sepsis, renal hypoperfusion. May have progressed to ATN. * Likely underlying diabetic nephropathy * Should be on SERGIO/ARB on discharge Urology consulted, Appreciate Recommendations * CT ABD 02/01: Mildly distended small bowel without signs of obstruction. Gallstone has been removed. BL hydronephrosis has developed with uncertain etiology. Nonobstructing stones of the L kidney. (4) Analisa infection Status: Acute Plan: Patient found to have Analisa infection on pannus folds and anal region Topical nystatin to be applied to infected areas every 8 hours (5) Diabetes mellitus Status: Chronic Plan: Patient with history of diabetes mellitus. BG well controlled without supplemental insulin Sliding scale insulin per protocol (6) Asthma Status: Chronic Plan: Patient with history of asthma Albuterol 2.5 mg every 2 hours when necessary for shortness of breath or wheezing pt reports her breathing is great and she does not need breathing treatments now. (7) Nutrition, metabolism, and development symptoms Status: Acute Plan: Fluids: D5 1/2NS at 100, can decrease to 70 an hour now as she is taking po fluids Electrolytes: Improving Creatinine. Daily Calcitriol Diet: Clear liquids as tolerated, advance slowly GI prophylaxis: Protonix slightly low K will give 20 meq today DVT prophylaxis: SCDs, Heparin decreasing H/H but not at the point of transfusion-she is s/p surgery plus renal failure can give anemia. can take po Fe once she tolerates a better diet. 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
[2017-02-03] MEDS: FLUCONAZOLE 200 MG PREMIX BAG 100 ML IV SCH (12:32)
[2017-02-03] MEDS: PANTOPRAZOLE SODIUM 40 MG VIAL IV PUSH SCH (12:58)
[2017-02-03] MEDS ORDERED: POTASSIUM CHLORIDE 20 MEQ CONTROLLED RELEASE TAB PO ONE (13:00)
--- NOTE | 2017-02-03 13:55 | HHI.NPPN ---
Subjective Renal Failure: Chronic, Acute, Stage IV History of Present Illness 51 year old with ckd and now with ARF, Gall stone Ileus s/p removal Interval History Sitting up in chair. She has been making good amount of urine, bladder scans revealing no retention. She is on clear liquids. (Angelique Sharp) Review of Systems General Constitutional: Fatigue (Angelique Sharp) Gastrointestinal Gastrointestinal: Abdominal Pain (Angelique Sharp) Objective Data Data 02/02/17 02/03/17 19:00 07:00 Intake Total 0 ml 1520 ml Output Total 900 ml Balance -900 ml 1520 ml Intake Oral 0 ml IV Total 1520 ml Output Urine Total 900 ml # Bowel Movements 0 Vital Signs Date Time Temp Pulse Resp B/P Pulse Ox O2 Delivery O2 Flow Rate FiO2 02/03/17 12:00 97.5 73 18 144/70 99 02/03/17 11:36 18 02/03/17 08:00 98.8 74 18 135/68 96 02/03/17 04:06 96.9 73 20 165/76 97 02/03/17 00:00 99.1 79 20 136/64 99 02/02/17 20:56 80 02/02/17 20:00 99.1 84 20 131/60 99 02/02/17 19:31 93 21 02/02/17 16:00 99.4 85 17 129/64 97 (Angelique Sharp) -: 02/03/17 0515 02/03/17 0515 Tubes & Lines: Gates (Angelique Sharp) Physical Exam General Appearance: Well Developed, Well Nourished, No Acute Distress, Comfortable, Pale (Angelique Sharp) Throat Throat Exam: Oral Mucosa [place] & Moist (Angelique Sharp) Neck Neck Exam: Neck Supple (Angelique Sharp) Pulmonary Resp Exam: Clear Bilaterally, Breath Sounds Equal (Angelique Sharp) Cardiology CV Exam: Regular, Normal Sinus Rhythm, Good Perfusion (Angelique Sharp) Gastrointestinal/Abdomen GI Exam: Soft, Bowel Sounds Present, Distended (Angelique Sharp) Musculoskeletal MS Exam: Joints Intact, Normal Tone (Angelique Sharp) Integumentary Skin Exam: Warm, Dry (Angelique Sharp) Extremeties Extremities Exam: No Edema, Pedal Pulses Palpable (Angelique Sharp) Neurologic Neuro Exam: Alert, Awake, Oriented, Speech Clear, Moving All Extremities ( Angelique Sharp) Psychiatric Psych Exam: Appropriate Responses (Angelique Sharp) Assessment/Plan Discussed Condition With: Patient, Relative Assessment Summary: SHELLEY/Acute Renal Failure, Diabetes Mellitus, CKD Stage IV Electrolyte Assessment: Hypocalcemia, Hypokalemia Problem List: (1) Acute on chronic kidney failure Plan: Acute renal failure was due to sepsis, renal hypoperfusion ; may have progressed to ATN likely underlying diabetic nephropathy; less than one gram proteinuria renal function improving On IVF D51/2 NS @ reduce rate to 50 K has been replaced gates removed, however she has developed bilateral hydronephrosis, no stone visualized refusing gates, bladder scans 1ml monitor renal function daily avoid nephrotoxins taper off fluids if intake improves (2) Gallstone ileus Plan: s/p gallstone removal repeat CT reviewed, no procedures planned surgery following on IVF, clear liquid diet (3) Diabetes mellitus Plan: insulin as needed monitor glucose (4) Secondary hyperparathyroidism (of renal origin) Plan: severely low Vit D, hypocalcemic, PTH elevated increase calcitriol to 0.5 mcg daily (Angelique Sharp) Plan patient was seen and examined. Renal function is better. Non oliguric. (Aneesh Rainey MD) Problem Qualifiers (1) Diabetes mellitus: Qualified Code: E11.620 - Type 2 diabetes mellitus with diabetic dermatitis, without long-term current use of insulin Angelique Sharp Feb 03, 2017 13:55 Aneesh Rainey MD Feb 03, 2017 15:28
[2017-02-03] MEDS ORDERED: BISACODYL 10 MG SUPP RECTAL ONE (15:00)
--- NOTE | 2017-02-03 15:14 | MB ---
cc: RONNY MCGRAW MD DATE OF CONSULTATION: 02/03/2017. REASON FOR CONSULTATION: 1. Bilateral hydronephrosis 2. Left obstructing renal stone. 3. History of urinary incontinence. HISTORY OF PRESENT ILLNESS: The patient is a 51-year-old obese female with a history of type 2 diabetes and chronic kidney disease as well as a history of kidney stones who is status post ESWL in the past who presented to [facility] on 01/27/2017 with a two-day history of abdominal pain, nausea and vomiting. She described the pain as crampy and widespread associated with a bilious type emesis. She also had subjective fevers and chills. She had a CT of the abdomen and pelvis without contrast which suggested a gallstone ileus with possible small bowel obstruction as well as a nonobstructing left renal stone. She subsequently was admitted for further evaluation. On January 30, she underwent a diagnostic laparoscopy with removal of foreign body and primary repair of an enterotomy by Dr. Bridges. Following the procedure, she did have a Goddard catheter in place. Her catheter was removed on postoperative number two. Upon visitation, her creatinine was up to over 7. On February 01, 2017, she developed new onset abdominal pain at 7/10 on the pain scale. CT at that time showed a new finding of bilateral ureteral nephrosis at the level of the bladder and no evidence of obstruction and a 7 mm stone remained in her left kidney. Urology was subsequently consulted for this new CT scan finding. Currently she denies any flank pain, nausea or vomiting at this time. She does think she has a history of an overactive bladder and she often leaks urine including today where she completely wet the bed without a sensation. She has had kidney stones in the past which were treated by Dr. Hickman through ESWL a number of years ago. She denies a history of genitourinary malignancy. She denies hematuria or any recent urinary tract infections. Her creatinine has currently come down to 2.47 and she feels like she is voiding well and emptying her bladder. PAST MEDICAL HISTORY: Her past medical history is significant for: 1. Gastroparesis. 2. Type 2 diabetes. 3. Osteomyelitis of the left foot. 4. Stage IV chronic kidney disease. 5. Gastroesophageal reflux disease (GERD). 6. Depression. 7. Iron deficiency anemia. 8. Asthma. 9. Kidney stones. 10. Migraines. PAST SURGICAL HISTORY: 1. Status post left foot amputation. 2. History of ESWL. 3. Tonsillectomy. ALLERGIES: 1. CODEINE. FAMILY HISTORY: Negative for urolithiasis. Negative for prostate cancer or breast cancer. SOCIAL HISTORY: She lives with her mother and a friend and is on disability for her health condition. Denies smoking, alcohol or illicit drugs. REVIEW OF SYSTEMS: See the history of present illness, otherwise 12-point review of systems as reported otherwise are negative. MEDICATIONS: Medications include: 1. Insulin. 2. Protonix. 3. Morphine. 4. Heparin. 5. Albuterol. PHYSICAL EXAMINATION: VITAL SIGNS: Temperature is 96.9, pulse 73, respiratory rate 20, blood pressure 16/76, satting 97% on room air. GENERAL: She is alert and oriented x3 and in no apparent distress. A pleasant cooperative lady who appears older than her stated age. HEAD, EYES, EARS, NOSE, THROAT: Head is normocephalic, atraumatic. No scleral icterus. Extraocular muscles intact. Hearing is normal. NECK: Neck is supple. Trachea is midline. LUNGS: Nonlabored respirations. No wheezes or rales or rhonchi. HEART: Regular rate and rhythm. No murmurs, rubs or gallops. ABDOMEN: The abdomen is soft, obese, nontender and nondistended. Positive bowel sounds. Incisions healing well. GENITOURINARY: No costovertebral angle tenderness bilaterally. PELVIC EXAM: Not done. EXTREMITIES: Nontender. No cyanosis, clubbing or edema. SKIN: No ulcers or rashes. PSYCHIATRIC: Normal affect. LABS: Labs show a white count 4.5, hemoglobin 9.0, hematocrit 26.8, platelet count 105,000. Sodium 139, potassium 3.4, chloride 106, bicarb 23.3, BUN 29, creatinine down to 2.41, glucose 97. Urine shows moderate leukocyte esterase, negative nitrates, negative glucose. IMAGING STUDIES: CT of the abdomen and pelvis without contrast images were reviewed. Re the radiologist's report, she has bilateral hydroureteronephrosis at the level of the bladder with no obvious cause of obstruction. She has a 7 mm nonobstructing left renal stone with air in her bladder and left renal pelvis. ASSESSMENT AND PLAN: The patient is a 51-year-old female with a history of kidney stones who presented with abdominal pain, nausea, vomiting and was found to have a gallstone ileus and subsequent small bowel obstruction who underwent a laparoscopy and now presents with new-onset bilateral hydronephrosis. PLAN: 1. Recommend conservative management as her kidney function continues to improve and she his asymptomatic. 2. The etiology of her hydronephrosis could possibly be from incomplete bladder emptying and a high pressure bladder from her diabetes and overactive bladder. We will check a postvoid residual to ensure that she is properly emptying. The air in her bladder and left renal pelvis is likely from her recent Goddard catheter following the surgery and that has been removed. Recommend conservative management at this time. If her condition worsens or if she develops symptoms, then will discuss possible intervention with cystoscopy and stents but at this time, I do not think a urologic intervention is indicated as her kidney function is drastically improving. We will certainly continue following her creatinine on a daily basis. She will then require outpatient treatment of the stone of her left kidney. Ronny Mcgraw MD [facility]/JUAN MANUEL /12:44 PM /2:52 PM
--- NOTE | 2017-02-03 16:42 | HHI.PR ---
Subjective Subjective Notes no acute issues, pain improving, no nausea, small flatus Objective Vitals/I&O Vital Signs Date Time Temp Pulse Resp B/P Pulse Ox O2 Delivery O2 Flow Rate FiO2 02/03/17 12:00 97.5 73 18 144/70 99 02/02/17 19:31 21 01/31/17 07:37 Nasal Cannula 3.00 Labs Laboratory Tests Test 02/03/17 05:15 White Blood Count 4.5 Red Blood Count 3.28 Hemoglobin 9.0 Hematocrit 26.8 Mean Corpuscular Volume 81.7 Mean Corpuscular Hemoglobin 27.4 Mean Corpuscular Hemoglobin 33.5 Concent Red Cell Distribution Width 14.6 Platelet Count 105 Mean Platelet Volume 10.0 Sodium Level 139 Potassium Level 3.4 Chloride Level 106 Carbon Dioxide Level 23.3 Anion Gap 10 Blood Urea Nitrogen 29 Creatinine 2.41 Estimat Glomerular Filtration 21 Rate Random Glucose 97 Lactic Acid Level 0.6 Calcium Level 7.4 Protein Corrected Calcium 8.1 Total Bilirubin 0.5 Aspartate Amino Transf 12 (AST/SGOT) Alanine Aminotransferase 7 (ALT/SGPT) Alkaline Phosphatase 67 Total Protein 5.9 Albumin 1.8 Date/Time Procedure Status Source Growth 02/01/17 11:45 Urine Culture - Final Complete Urine Catheterized Urine Pseudomonas Aeruginosa 02/01/17 10:43 Aerobic Blood Culture - Preliminary Resulted Blood Peripheral NO GROWTH IN 2 DAYS 02/01/17 10:43 Anaerobic Blood Culture - Preliminary Resulted Blood Peripheral NO GROWTH IN 2 DAYS Radiology Last 48 hours Impressions Renal Ultrasound 01/27/17 0000 Signed Impressions: Service Date/Time: Friday, January 27, 2017 12:08 - CONCLUSION: 1. Echogenic kidneys which can be seen with medical renal disease. 2. Nonobstructing calculus measures 2.1 cm in the lower pole left kidney. 3. Nonvisualization of the bladder. There is air in the bladder on most recent CT scan of the abdomen/pelvis. This could be infectious and likely the main reason cannot visualize bladder. Anselmo Shelton MD Abdomen: Other (soft distended, diffuse tenderness incisions c/d/i) A/P Assessment and Plan 51 year old female with an obstructing gallstone ileus,POD 4 Dx lap, lap removal of FB/gallstone, ua +pseudomonas - full liq diet, shakes -iv abx - pain control - oob pt needs to ambulate -dvt ppx - bowel regimen Eduardo Bridges MD Feb 03, 2017 16:42
[2017-02-04] VITALS (10 sets, daily range): BP systolic 119–166; BP diastolic 62–89; PULSE 62–95; RESP 17–20; TEMP 96.7–98.1; O2SAT 95–100
[2017-02-04] MEDS: PIPERACIL-TAZO 2.25 GM PREMIX 50 ML IV SCH (02:38)
[2017-02-04] MEDS: NYSTATIN 100,000 U/GM PWD 15 GM BTL TOPICAL SCH ×3 (02:38→20:45)
[2017-02-04] MEDS: metroNIDAZOLE 500 MG INJ 100 ML IV SCH (02:38)
[2017-02-04] MEDS: HEPARIN SODIUM - SQ 10,000 UNITS/ML VIAL SQ SCH ×3 (02:38→18:25)
[2017-02-04 05:00] LABS: AUTOMATED NEUTROPHIL # 3.1 TH/MM3 (1.8-7.7); BASOPHIL # 0.1 TH/MM3 (0-0.2); EOSINOPHIL # 0.4 TH/MM3 (0-0.4); EOSINOPHIL % 8.6 % (0.0-4.0); HEMATOCRIT 29.5 % (35.0-46.0); HEMO FLAGS DIFF FINAL; LYMPH % 16.5 % (9.0-44.0); LYMPHOCYTE # 0.8 TH/MM3 (1.0-4.8); MEAN CELL VOLUME 82.7 FL (80.0-100.0); MEAN CORPUSCULAR HEMOGLOBIN 26.6 PG (27.0-34.0); MEAN CORPUSCULAR HGB CONC 32.2 % (32.0-36.0); MONO % 9.8 % (0.0-8.0); NEUT % 64.1 % (16.0-70.0); PLATELET COUNT 117 TH/MM3 (150-450); RED BLOOD COUNT 3.56 MIL/MM3 (4.00-5.30); RED CELL DISTRIBUTION WIDTH 14.9 % (11.6-17.2); WHITE BLOOD COUNT 4.9 TH/MM3 (4.0-11.0)
[2017-02-04 05:27] LABS: BICARBONATE 21.2 MEQ/L (21.0-32.0); POTASSIUM 3.6 MEQ/L (3.5-5.1)
[2017-02-04] MEDS: INSULIN ASPART SUPPLEMENTAL SCALE SQ SCH ×4 (05:58→19:24)
[2017-02-04] MEDS: ONDANSETRON HCL 4 MG/2 ML VIAL IV PUSH PRN ×2 (07:15→17:56)
[2017-02-04] MEDS: RESP: ALBUTEROL 2.5 MG/IPRATROPIUM 0.5 MG NEB (SCH) NEB ×3 (08:00→20:27)
--- NOTE | 2017-02-04 08:09 | HHI.FPPN ---
Subjective Remarks Patient seen and examined this morning. Vital signs stable with no acute events overnight. Upon arrival to her room, she was in the bathroom, yelling out in distress for assistance. She states that she "has been on the toilet for an hour and her legs are falling asleep." When asked if she needed help to get back to her bed, she stated "no, she was still using the restroom." However, report from nursing staff was she had a liquid based BM without blood. She complains that the Miralax and Senna medications are too much for her causing her to feel the urge to go all night. Otherwise she has no complaints and states her pain is improving. She denies any fevers, chills, SOB, chest pain, NVD, or calf tenderness. (Alli Chaparro MD R1) Objective Vitals Vital Signs Date Time Temp Pulse Resp B/P Pulse Ox O2 Delivery O2 Flow Rate FiO2 02/04/17 07:57 97.7 70 18 143/75 99 02/04/17 07:21 Nasal Cannula 02/04/17 04:00 96.7 73 20 148/77 99 02/04/17 00:00 97.1 68 20 166/89 99 02/03/17 20:00 95.5 74 20 125/84 100 02/03/17 20:00 66 02/03/17 19:05 96 21 02/03/17 16:00 97.8 68 17 124/69 96 02/03/17 15:00 88 02/03/17 12:00 97.5 73 18 144/70 99 02/03/17 11:36 18 I/O 02/03/17 02/03/17 02/03/17 02/04/17 02/04/17 02/04/17 07:00 15:00 23:00 07:00 15:00 23:00 Intake Total 760 ml 1640 ml 860 ml 325 ml 120 ml Output Total 1000 ml 700 ml 1000 ml Balance 760 ml 640 ml 160 ml -675 ml 120 ml Intake Oral 740 ml 480 ml 0 ml 120 ml IV Total 760 ml 900 ml 380 ml 325 ml Output Urine Total 1000 ml 700 ml 1000 ml Bladder Scan Volume Amount 1 ml # Bowel Movements 0 2 (Alli Chaparro MD R1) Result Diagram: 02/04/1731802/04/17318 Objective Remarks GEN: Obese female sitting in chair in no acute distress. CV: Distant heart sounds, but without obvious murmurs. RRR. LUNGS: Distant lung sounds anteriorly but otherwise clear. GI: Soft, tender to mild palpation diffusely, but with no rebound tenderness. No palpable masses. BS+. NEURO/PSYCH: AAOx3. Normal speech (Alli Chaparro MD R1) A/P Assessment and Plan Ms. Marie is a 51 y/o CF with a PMHx of T2DM, CKD, and osteomyelitis s/p L forefoot amputation. She was admitted for gallstone ileus and acute on chronic kidney disease. Gallstone removal from the small bowel performed on 01/30/17. Discharge Planning 2-4 days pending recovery from surgery dw Dr. Zepeda and Dr. Aguilar (Alli Chaparro MD R1) Attending Attestation Patient seen and examined. Case reviewed and discussed with the resident team. Agree with plan of care as discussed with me and documented in the resident note. (Angelique Zepeda MD) Problem List: (1) Gallstone ileus Status: Acute Plan: Presented due to bilious vomiting with subjective fever/chills. Found to have gallstone ileus on CT. Laparoscopic stone removal on 01/31/[address] Bridges. Acute onset of fever and tachycardia on 02/01 with rebound tenderness on exam. -Due to acute change in status: CXR, urine, blood cultures, Zosyn, Linezolid, Flagyl, Diflucan, fluids started for broad coverage as patient meets sepsis criteria. General surgery notified. See plan below for further detail. -No leukocytosis -CT abdomen: Probable gallstone ileus. Nonobstructing left renal stone. Small amount of air in the collecting system of the left kidney. -Encouraged PT/OT and incentive spirometry Consulted Gen. surgery: Appreciate recommendations * Laparoscopic stone removal on 01/31/[address] Bridges, pathology shows a huge ( 5 cm in it's broadest dimension) gallstone * OOB as tolerated * Encouraged incentive spirometer and acapella * CT ABD 02/01: Mildly distended small bowel without signs of obstruction. Gallstone has been removed. BL hydronephrosis has developed with uncertain etiology. Nonobstructing stones of the L kidney. Medications: * Zosyn (02/01-02/04) * Linezolid (02/01-02/04) * Diflucan (02/01-02/03) * Metronidazole () * Ciprofloxacin (02/04- * Fluids, see rate below (2) Sepsis Status: Resolved Plan: Laparoscopic stone removal on 01/31/[address] Bridges. Acute onset of fever and tachycardia on 02/01 with rebound tenderness on exam. Met sepsis criteria based on tachycardia and fever. -CXR: Mild left base atelectasis and borderline compensated cardiomegaly -CT abdomen with oral contrast ordered -Repeat UA ordered via straight catheter shows pansensitive Pseudomonas -Blood cultures ordered: negative so far -General surgery notified -ABX transitioned to PO Ciprofloxacin Medications: * Zosyn (02/01-02/04) * Linezolid (02/01-02/04) * Diflucan (02/01-02/03) * Metronidazole () * Ciprofloxacin (02/04- * Fluids, see rate below (3) Acute on chronic kidney failure Status: Resolved Plan: Patient with stage IV kidney disease, is not seen by nephrology as an outpt. Per chart review patient's last creatinine baseline in 2013 ranges from 1.84 - 2.3. -Improving creatinine slowly but daily showing some improvement Nephrology consulted: Appreciate recommendations * Acute renal failure may be due to sepsis, renal hypoperfusion. May have progressed to ATN. * Likely underlying diabetic nephropathy * Should be on SERGIO/ARB on discharge Urology consulted, Appreciate Recommendations * CT ABD 02/01: Mildly distended small bowel without signs of obstruction. Gallstone has been removed. BL hydronephrosis has developed with uncertain etiology. Nonobstructing stones of the L kidney. * Post-void residual minimal * No urological intervention need at this time * Consider anti-cholinergic for urge incontinence once bowel function improves * Outpatient treatment of kidney stone (4) Analisa infection Status: Acute Plan: Patient found to have Analisa infection on pannus folds and anal region Topical nystatin to be applied to infected areas every 8 hours (5) Diabetes mellitus Status: Chronic Plan: Patient with history of diabetes mellitus. BG well controlled without supplemental insulin Sliding scale insulin per protocol (6) Asthma Status: Chronic Plan: Patient with history of asthma Albuterol 2.5 mg every 2 hours when necessary for shortness of breath or wheezing pt reports her breathing is great and she does not need breathing treatments now. (7) Nutrition, metabolism, and development symptoms Status: Acute Plan: Fluids: D5 1/2NS at 50 ml/hr Electrolytes: Improving Creatinine. Daily Calcitriol Diet: Clear liquids as tolerated, advance slowly GI prophylaxis: Protonix DVT prophylaxis: SCDs, Heparin (Alli Chaparro MD R1) Problem Qualifiers (1) Diabetes mellitus: Qualified Code: E11.620 - Type 2 diabetes mellitus with diabetic dermatitis, without long-term current use of insulin (2) Asthma: Qualified Code: J45.909 - Uncomplicated asthma, unspecified asthma severity Alli Chaparro MD R1 Feb 04, 2017 08:09 Angelique Zepeda MD Feb 08, 2017 14:36
[2017-02-04] MEDS ORDERED: DOCUSATE SODIUM 50 MG/SENNA 8.6 MG TAB PO PRN (08:15)
[2017-02-04] MEDS: SODIUM CHLORIDE 0.9% FLUSH 5 ML FLUSH FLUSH SCH ×2 (08:21→20:42)
[2017-02-04] MEDS: CALCITRIOL 0.25 MCG CAP PO SCH (08:35)
[2017-02-04] MEDS ORDERED: POLYETHYLENE GLYCOL 17 GM PKG PO SCH (09:00)
[2017-02-04] MEDS ORDERED: POLYETHYLENE GLYCOL 17 GM PKG PO PRN (09:00)
--- NOTE | 2017-02-04 09:15 | HHI.PR ---
Subjective Remarks denies any new issues overnight. Still incontinent. PVR 1 ml. Emptying her bladder. Objective Vital Signs Vital Signs Date Time Temp Pulse Resp B/P Pulse Ox O2 Delivery O2 Flow Rate FiO2 02/04/17 07:57 97.7 70 18 143/75 99 02/04/17 07:21 Nasal Cannula 02/04/17 04:00 96.7 73 20 148/77 99 02/04/17 00:00 97.1 68 20 166/89 99 02/03/17 20:00 95.5 74 20 125/84 100 02/03/17 20:00 66 02/03/17 19:05 96 21 02/03/17 16:00 97.8 68 17 124/69 96 02/03/17 15:00 88 02/03/17 12:00 97.5 73 18 144/70 99 02/03/17 11:36 18 I/O 02/03/17 02/03/17 02/03/17 02/04/17 02/04/17 02/04/17 07:00 15:00 23:00 07:00 15:00 23:00 Intake Total 760 ml 1640 ml 860 ml 325 ml 120 ml Output Total 1000 ml 700 ml 1000 ml Balance 760 ml 640 ml 160 ml -675 ml 120 ml Intake Oral 740 ml 480 ml 0 ml 120 ml IV Total 760 ml 900 ml 380 ml 325 ml Output Urine Total 1000 ml 700 ml 1000 ml Bladder Scan Volume Amount 1 ml # Bowel Movements 0 2 Result Diagram: 02/04/1731802/04/17318 Objective Remarks NAD. abd soft, obese Assessment and Plan Assessment and Plan 51 yo female with bilateral hydronephrosis, urinary incontinence -PVR minimal -Cr improving. No urological intervention needed at this time. -Consider anticholinergic for urge incontinence once bowel function improves. -Outpatient treatment of kidney stone -F/U as outpatient. Available as needed. Please call with any questions. Ronny Mcgraw MD Feb 04, 2017 09:15
[2017-02-04] MEDS: LINEZOLID 600 MG PREMIX 300 ML IV SCH (09:43)
[2017-02-04] MEDS: CIPROFLOXACIN 500 MG TAB PO SCH ×2 (10:25→20:42)
--- NOTE | 2017-02-04 13:13 | HHI.NPPN ---
Subjective Renal Failure: Chronic, Acute, Stage IV History of Present Illness 51 year old with ckd and now with ARF, Gall stone Ileus s/p removal Additional Remarks No acute complaints Review of Systems General Constitutional: Fatigue Gastrointestinal Gastrointestinal: Abdominal Pain Objective Data Data 02/03/17 02/04/17 19:00 07:00 Intake Total 1640 ml 1185 ml Output Total 1000 ml 1700 ml Balance 640 ml -515 ml Intake Oral 740 ml 480 ml IV Total 900 ml 705 ml Output Urine Total 1000 ml 1700 ml Bladder Scan Volume Amount 1 ml # Bowel Movements 0 2 Vital Signs Date Time Temp Pulse Resp B/P Pulse Ox O2 Delivery O2 Flow Rate FiO2 02/04/17 12:00 97.8 68 17 124/62 95 02/04/17 08:00 95 02/04/17 07:57 97.7 70 18 143/75 99 02/04/17 07:21 Nasal Cannula 02/04/17 04:00 96.7 73 20 148/77 99 02/04/17 00:00 97.1 68 20 166/89 99 02/03/17 20:00 95.5 74 20 125/84 100 02/03/17 20:00 66 02/03/17 19:05 96 21 02/03/17 16:00 97.8 68 17 124/69 96 02/03/17 15:00 88 -: 02/04/17 0319 02/04/17 0319 Tubes & Lines: Goddard Physical Exam General Appearance: Well Developed, Well Nourished, No Acute Distress, Comfortable, Pale Throat Throat Exam: Oral Mucosa [place] & Moist Neck Neck Exam: Neck Supple Pulmonary Resp Exam: Clear Bilaterally, Breath Sounds Equal Cardiology CV Exam: Regular, Normal Sinus Rhythm, Good Perfusion Gastrointestinal/Abdomen GI Exam: Soft, Bowel Sounds Present, Distended Musculoskeletal MS Exam: Joints Intact, Normal Tone Integumentary Skin Exam: Warm, Dry Extremeties Extremities Exam: No Edema, Pedal Pulses Palpable Neurologic Neuro Exam: Alert, Awake, Oriented, Speech Clear, Moving All Extremities Psychiatric Psych Exam: Appropriate Responses Assessment/Plan Discussed Condition With: Patient, Relative Assessment Summary: SHELLEY/Acute Renal Failure, Diabetes Mellitus, CKD Stage IV Electrolyte Assessment: Hypocalcemia, Hypokalemia Problem List: (1) Acute on chronic kidney failure Plan: Acute renal failure was due to sepsis, renal hypoperfusion ; may have progressed to ATN likely underlying diabetic nephropathy; less than one gram proteinuria renal function improving gradually - creatinine 2.4 -> 2.3. 2.7L UOP/ 24 hours On IVF D51/2 NS @ 50cc/hour for now. Taper off fluids if intake improves Bladder scans 1ml, follow recommendations per monitor renal function daily avoid nephrotoxins (2) Gallstone ileus Plan: s/p gallstone removal repeat CT reviewed, no procedures planned surgery following on IVF, clear liquid diet (3) Diabetes mellitus Plan: insulin as needed monitor glucose (4) Secondary hyperparathyroidism (of renal origin) Plan: severely low Vit D, hypocalcemic, PTH elevated calcitriol was increased Problem Qualifiers (1) Diabetes mellitus: Qualified Code: E11.620 - Type 2 diabetes mellitus with diabetic dermatitis, without long-term current use of insulin Kevin Yung MD Feb 04, 2017 13:13
--- NOTE | 2017-02-04 13:21 | HHI.NPPN ---
Subjective Renal Failure: Chronic, Acute, Stage IV History of Present Illness 51 year old with ckd and now with ARF, Gall stone Ileus s/p removal Additional Remarks No acute complaints Review of Systems General Constitutional: Fatigue Gastrointestinal Gastrointestinal: Abdominal Pain Objective Data Data 02/03/17 02/04/17 19:00 07:00 Intake Total 1640 ml 1185 ml Output Total 1000 ml 1700 ml Balance 640 ml -515 ml Intake Oral 740 ml 480 ml IV Total 900 ml 705 ml Output Urine Total 1000 ml 1700 ml Bladder Scan Volume Amount 1 ml # Bowel Movements 0 2 Vital Signs Date Time Temp Pulse Resp B/P Pulse Ox O2 Delivery O2 Flow Rate FiO2 02/04/17 12:00 97.8 68 17 124/62 95 02/04/17 08:00 95 02/04/17 07:57 97.7 70 18 143/75 99 02/04/17 07:21 Nasal Cannula 02/04/17 04:00 96.7 73 20 148/77 99 02/04/17 00:00 97.1 68 20 166/89 99 02/03/17 20:00 95.5 74 20 125/84 100 02/03/17 20:00 66 02/03/17 19:05 96 21 02/03/17 16:00 97.8 68 17 124/69 96 02/03/17 15:00 88 -: 02/04/17 0319 02/04/17 0319 Tubes & Lines: Goddard Physical Exam General Appearance: Well Developed, Well Nourished, No Acute Distress, Comfortable, Pale Throat Throat Exam: Oral Mucosa [place] & Moist Neck Neck Exam: Neck Supple Pulmonary Resp Exam: Clear Bilaterally, Breath Sounds Equal Cardiology CV Exam: Regular, Normal Sinus Rhythm, Good Perfusion Gastrointestinal/Abdomen GI Exam: Soft, Bowel Sounds Present, Distended Musculoskeletal MS Exam: Joints Intact, Normal Tone Integumentary Skin Exam: Warm, Dry Extremeties Extremities Exam: No Edema, Pedal Pulses Palpable Neurologic Neuro Exam: Alert, Awake, Oriented, Speech Clear, Moving All Extremities Psychiatric Psych Exam: Appropriate Responses Assessment/Plan Discussed Condition With: Patient, Relative Assessment Summary: SHELLEY/Acute Renal Failure, Diabetes Mellitus, CKD Stage IV Electrolyte Assessment: Hypocalcemia, Hypokalemia Problem List: (1) Acute on chronic kidney failure Plan: Acute renal failure was due to sepsis, renal hypoperfusion ; may have progressed to ATN likely underlying diabetic nephropathy; less than one gram proteinuria renal function improving gradually - creatinine 2.4 -> 2.3. 2.7L UOP/ 24 hours Off IVFs now Bladder scans 1ml, follow recommendations per monitor renal function daily avoid nephrotoxins Patient reports she wants to go home soon, renal function is stable and this point and continues gradual improvment. If discharged, will need close outpatient follow-up of renal function. (2) Gallstone ileus Plan: s/p gallstone removal repeat CT reviewed, no procedures planned surgery following on IVF, clear liquid diet (3) Diabetes mellitus Plan: insulin as needed monitor glucose (4) Secondary hyperparathyroidism (of renal origin) Plan: severely low Vit D, hypocalcemic, PTH elevated calcitriol was increased Problem Qualifiers (1) Diabetes mellitus: Qualified Code: E11.620 - Type 2 diabetes mellitus with diabetic dermatitis, without long-term current use of insulin Kevin Yung MD Feb 04, 2017 13:21
[2017-02-04] MEDS: PANTOPRAZOLE SODIUM 40 MG VIAL IV PUSH SCH (13:24)
[2017-02-04] MEDS: SODIUM CHLORIDE 0.9% FLUSH 5 ML FLUSH FLUSH PRN ×3 (13:25→17:57)
--- NOTE | 2017-02-04 16:24 | HHI.PR ---
Subjective Subjective Notes Tolerating full liquid diet; pos BM's No nausea or emesis Objective Vitals/I&O Vital Signs Date Time Temp Pulse Resp B/P Pulse Ox O2 Delivery O2 Flow Rate FiO2 02/04/17 12:00 97.8 68 17 124/62 95 02/04/17 07:21 Nasal Cannula 02/03/17 19:05 21 01/31/17 07:37 3.00 Labs Laboratory Tests Test 02/04/17 03:19 White Blood Count 4.9 Red Blood Count 3.56 Hemoglobin 9.5 Hematocrit 29.5 Mean Corpuscular Volume 82.7 Mean Corpuscular Hemoglobin 26.6 Mean Corpuscular Hemoglobin 32.2 Concent Red Cell Distribution Width 14.9 Platelet Count 117 Mean Platelet Volume 11.1 Neutrophils (%) (Auto) 64.1 Lymphocytes (%) (Auto) 16.5 Monocytes (%) (Auto) 9.8 Eosinophils (%) (Auto) 8.6 Basophils (%) (Auto) 1.0 Neutrophils # (Auto) 3.1 Lymphocytes # (Auto) 0.8 Monocytes # (Auto) 0.5 Eosinophils # (Auto) 0.4 Basophils # (Auto) 0.1 CBC Comment DIFF FINAL Differential Comment Sodium Level 140 Potassium Level 3.6 Chloride Level 108 Carbon Dioxide Level 21.2 Anion Gap 11 Blood Urea Nitrogen 23 Creatinine 2.30 Estimat Glomerular Filtration 22 Rate Random Glucose 113 Calcium Level 7.7 Phosphorus Level 2.5 Date/Time Procedure Status Source Growth 02/01/17 11:45 Urine Culture - Final Complete Urine Catheterized Urine Pseudomonas Aeruginosa 02/01/17 10:43 Aerobic Blood Culture - Preliminary Resulted Blood Peripheral NO GROWTH IN 3 DAYS 02/01/17 10:43 Anaerobic Blood Culture - Preliminary Resulted Blood Peripheral NO GROWTH IN 3 DAYS Radiology Last 48 hours Impressions Renal Ultrasound 01/27/17 0000 Signed Impressions: Service Date/Time: Friday, January 27, 2017 12:08 - CONCLUSION: 1. Echogenic kidneys which can be seen with medical renal disease. 2. Nonobstructing calculus measures 2.1 cm in the lower pole left kidney. 3. Nonvisualization of the bladder. There is air in the bladder on most recent CT scan of the abdomen/pelvis. This could be infectious and likely the main reason cannot visualize bladder. Anselmo Shelton MD Lungs: Clear Abdomen: Non-distended Narrative Exam Steristrips dry and intact A/P Assessment and Plan Assessment and Plan 51 year old female with an obstructing gallstone ileus,POD 5 Dx lap, lap removal of FB/gallstone, ua +pseudomonas - advance diet to cons carb 1800 olga -iv abx - pain control -dvt ppx - bowel regimen - improved Eliseo Walker MD Feb 04, 2017 16:24
[2017-02-04] MEDS: MORPHINE SULFATE 4 MG/ML INJ IV PRN ×2 (16:57→20:43)
[2017-02-05] VITALS (7 sets, daily range): BP systolic 123–141; BP diastolic 60–78; PULSE 66–89; RESP 17–19; TEMP 96.2–97.9; O2SAT 98–100
[2017-02-05] MEDS: HEPARIN SODIUM - SQ 10,000 UNITS/ML VIAL SQ SCH ×3 (01:28→18:24)
[2017-02-05] MEDS: ONDANSETRON HCL 4 MG/2 ML VIAL IV PUSH PRN ×2 (04:03→11:30)
[2017-02-05] MEDS: NYSTATIN 100,000 U/GM PWD 15 GM BTL TOPICAL SCH ×3 (05:01→20:27)
[2017-02-05] MEDS: MORPHINE SULFATE 4 MG/ML INJ IV PRN (05:26)
[2017-02-05 05:54] LABS: MEAN CELL VOLUME 82.8 FL (80.0-100.0); MEAN CORPUSCULAR HEMOGLOBIN 26.9 PG (27.0-34.0); MEAN CORPUSCULAR HGB CONC 32.5 % (32.0-36.0); PLATELET COUNT 121 TH/MM3 (150-450); RED BLOOD COUNT 3.63 MIL/MM3 (4.00-5.30); RED CELL DISTRIBUTION WIDTH 14.8 % (11.6-17.2); REVIEW FLAG FINAL; WHITE BLOOD COUNT 4.8 TH/MM3 (4.0-11.0)
[2017-02-05 06:10] LABS: BICARBONATE 19.8 MEQ/L (21.0-32.0); POTASSIUM 3.6 MEQ/L (3.5-5.1)
[2017-02-05] MEDS: INSULIN ASPART SUPPLEMENTAL SCALE SQ SCH ×4 (06:29→20:26)
[2017-02-05] MEDS: CALCITRIOL 0.25 MCG CAP PO SCH (07:24)
[2017-02-05] MEDS: CIPROFLOXACIN 500 MG TAB PO SCH ×2 (07:25→20:26)
[2017-02-05] MEDS: SODIUM CHLORIDE 0.9% FLUSH 5 ML FLUSH FLUSH SCH ×2 (07:25→20:26)
[2017-02-05] MEDS: RESP: ALBUTEROL 2.5 MG/IPRATROPIUM 0.5 MG NEB (SCH) NEB ×2 (07:49→19:29)
--- NOTE | 2017-02-05 11:58 | HHI.FPPN ---
Subjective Remarks Patient seen and examined this morning. No acute events overnight and VSS. She states that she is doing well and her ABD pain is improving each day. She has had increased activity with PT and continued BMs. Otherwise she has no complaints and denies any fevers, chills, SOB, chest pain, NVD, or calf tenderness. (Alli Chaparro MD R1) Objective Vitals Vital Signs Date Time Temp Pulse Resp B/P Pulse Ox O2 Delivery O2 Flow Rate FiO2 02/05/17 07:54 97.9 82 19 131/64 98 02/05/17 07:49 99 21 02/05/17 04:00 97.5 80 17 140/78 100 02/05/17 00:00 97.5 66 17 123/62 100 02/04/17 22:00 70 02/04/17 20:30 99 21 02/04/17 20:00 97.5 62 17 146/76 100 02/04/17 17:02 18 02/04/17 16:00 98.1 70 19 119/62 98 02/04/17 15:00 62 02/04/17 12:00 97.8 68 17 124/62 95 I/O 02/04/17 02/04/17 02/04/17 02/05/17 02/05/17 02/05/17 07:00 15:00 23:00 07:00 15:00 23:00 Intake Total 325 ml 600 ml 240 ml 240 ml 120 ml Output Total 1000 ml 800 ml 2 ml Balance -675 ml -200 ml 238 ml 240 ml 120 ml Intake Oral 0 ml 600 ml 240 ml 240 ml 120 ml IV Total 325 ml 0 ml 0 ml Output Urine Total 1000 ml 800 ml 2 ml # Voids 2 # Bowel Movements 2 1 2 (Alli Chaparro MD R1) Result Diagram: 02/05/17 0440 02/05/17 0440 Objective Remarks GEN: Obese female sitting in chair in no acute distress. CV: Distant heart sounds, but without obvious murmurs. RRR. LUNGS: Distant lung sounds anteriorly but otherwise clear. GI: Soft, tender to mild palpation diffusely, but with no rebound tenderness. No palpable masses. BS+. NEURO/PSYCH: AAOx3. Normal speech (Alli Chaparro MD R1) A/P Assessment and Plan Ms. Marie is a 51 y/o CF with a PMHx of T2DM, CKD, and osteomyelitis s/p L forefoot amputation. She was admitted for gallstone ileus and acute on chronic kidney disease. Gallstone removal from the small bowel performed on 01/30/17. Discharge Planning 1-2 days pending surgery recommendations and SNF placement for rehabilitation dw Dr. Zepeda and Dr. Ayoub (Alli Chaparro MD R1) Attending Attestation Patient seen and examined. Case reviewed and discussed with the resident team. Agree with plan of care as discussed with me and documented in the resident note. (Angelique Zepeda MD) Problem List: (1) Gallstone ileus Status: Acute Plan: Presented due to bilious vomiting with subjective fever/chills. Found to have gallstone ileus on CT. Laparoscopic stone removal on 01/31/[address] Bridges. Acute onset of fever and tachycardia on 02/01 with rebound tenderness on exam. -Due to acute change in status: CXR, urine, blood cultures, Zosyn, Linezolid, Flagyl, Diflucan, fluids started for broad coverage as patient meets sepsis criteria. General surgery notified. See plan below for further detail. -No leukocytosis -CT abdomen: Probable gallstone ileus. Nonobstructing left renal stone. Small amount of air in the collecting system of the left kidney. -Encouraged PT/OT and incentive spirometry Consulted Gen. surgery: Appreciate recommendations * Laparoscopic stone removal on 01/31/[address] Bridges, pathology shows a huge ( 5 cm in it's broadest dimension) gallstone * OOB as tolerated * Encouraged incentive spirometer and acapella * CT ABD 02/01: Mildly distended small bowel without signs of obstruction. Gallstone has been removed. BL hydronephrosis has developed with uncertain etiology. Nonobstructing stones of the L kidney. Medications: * Zosyn (02/01-02/04) * Linezolid (02/01-02/04) * Diflucan (02/01-02/03) * Metronidazole () * Ciprofloxacin (02/04- * Fluids, see rate below (2) Sepsis Status: Resolved Plan: Laparoscopic stone removal on 01/31/[address] Bridges. Acute onset of fever and tachycardia on 02/01 with rebound tenderness on exam. Met sepsis criteria based on tachycardia and fever. -CXR: Mild left base atelectasis and borderline compensated cardiomegaly -CT abdomen with oral contrast ordered -Repeat UA ordered via straight catheter shows pansensitive Pseudomonas -Blood cultures ordered: negative so far -General surgery notified -ABX transitioned to PO Ciprofloxacin Medications: * Zosyn (02/01-02/04) * Linezolid (02/01-02/04) * Diflucan (02/01-02/03) * Metronidazole () * Ciprofloxacin (02/04- * Fluids, see rate below (3) Acute on chronic kidney failure Status: Resolved Plan: Patient with stage IV kidney disease, is not seen by nephrology as an outpt. Per chart review patient's last creatinine baseline in 2013 ranges from 1.84 - 2.3. -Improving creatinine slowly but daily showing some improvement Nephrology consulted: Appreciate recommendations * Acute renal failure may be due to sepsis, renal hypoperfusion. May have progressed to ATN. * Likely underlying diabetic nephropathy * Should be on SERGIO/ARB on discharge * Will need close outpatient follow up of renal function at discharge Urology consulted, Appreciate Recommendations * CT ABD 02/01: Mildly distended small bowel without signs of obstruction. Gallstone has been removed. BL hydronephrosis has developed with uncertain etiology. Nonobstructing stones of the L kidney. * Post-void residual minimal * No urological intervention need at this time * Consider anti-cholinergic for urge incontinence once bowel function improves * Outpatient treatment of kidney stone (4) Analisa infection Status: Acute Plan: Patient found to have Analisa infection on pannus folds and anal region Topical nystatin to be applied to infected areas every 8 hours (5) Diabetes mellitus Status: Chronic Plan: Patient with history of diabetes mellitus. BG well controlled without supplemental insulin Sliding scale insulin per protocol (6) Asthma Status: Chronic Plan: Patient with history of asthma Albuterol 2.5 mg every 2 hours when necessary for shortness of breath or wheezing pt reports her breathing is great and she does not need breathing treatments now. (7) Nutrition, metabolism, and development symptoms Status: Acute Plan: Fluids: DC as patient is tolerating PO Electrolytes: Improving Creatinine. 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
[2017-02-05] MEDS: PANTOPRAZOLE SODIUM 40 MG VIAL IV PUSH SCH (13:58)
[2017-02-05] MEDS: SODIUM CHLORIDE 0.9% FLUSH 5 ML FLUSH FLUSH PRN (13:58)
--- NOTE | 2017-02-05 15:34 | HHI.PR ---
Subjective Subjective Notes No complaints; tolerating regular diet. Moving bowels Objective Vitals/I&O Vital Signs Date Time Temp Pulse Resp B/P Pulse Ox O2 Delivery O2 Flow Rate FiO2 02/05/17 11:45 97.9 76 18 141/68 100 02/05/17 07:49 21 02/04/17 07:21 Nasal Cannula Labs Laboratory Tests Test 02/05/17 04:40 White Blood Count 4.8 Red Blood Count 3.63 Hemoglobin 9.7 Hematocrit 30.0 Mean Corpuscular Volume 82.8 Mean Corpuscular Hemoglobin 26.9 Mean Corpuscular Hemoglobin 32.5 Concent Red Cell Distribution Width 14.8 Platelet Count 121 Mean Platelet Volume 10.5 Sodium Level 143 Potassium Level 3.6 Chloride Level 110 Carbon Dioxide Level 19.8 Anion Gap 13 Blood Urea Nitrogen 21 Creatinine 2.26 Estimat Glomerular Filtration 23 Rate Random Glucose 87 Calcium Level 8.1 Date/Time Procedure Status Source Growth 02/01/17 11:45 Urine Culture - Final Complete Urine Catheterized Urine Pseudomonas Aeruginosa 02/01/17 10:43 Aerobic Blood Culture - Preliminary Resulted Blood Peripheral NO GROWTH IN 4 DAYS 02/01/17 10:43 Anaerobic Blood Culture - Preliminary Resulted Blood Peripheral NO GROWTH IN 4 DAYS Radiology Last 48 hours Impressions Renal Ultrasound 01/27/17 0000 Signed Impressions: Service Date/Time: Friday, January 27, 2017 12:08 - CONCLUSION: 1. Echogenic kidneys which can be seen with medical renal disease. 2. Nonobstructing calculus measures 2.1 cm in the lower pole left kidney. 3. Nonvisualization of the bladder. There is air in the bladder on most recent CT scan of the abdomen/pelvis. This could be infectious and likely the main reason cannot visualize bladder. Anselmo Shelton MD Abdomen: Non-distended, Non-tender Narrative Exam Steristrips dry and intact A/P Assessment and Plan Assessment and Plan 51 year old female with an obstructing gallstone ileus,POD 6 Dx lap, lap removal of FB/gallstone, ua +pseudomonas -iv abx - pain control -dvt ppx - bowel regimen - improved - will sign off tomorrow; stable from GS standpt Eliseo Walker MD Feb 05, 2017 15:34
--- NOTE | 2017-02-05 15:47 | HHI.NPPN ---
Subjective Renal Failure: Chronic, Acute, Stage IV History of Present Illness 51 year old with ckd and now with ARF, Gall stone Ileus s/p removal Additional Remarks No acute complaints Review of Systems General Constitutional: Fatigue Gastrointestinal Gastrointestinal: Abdominal Pain Objective Data Data 02/04/17 02/05/17 19:00 07:00 Intake Total 600 ml 480 ml Output Total 800 ml 2 ml Balance -200 ml 478 ml Intake Oral 600 ml 480 ml IV Total 0 ml Output Urine Total 800 ml 2 ml # Voids 2 # Bowel Movements 1 2 Vital Signs Date Time Temp Pulse Resp B/P Pulse Ox O2 Delivery O2 Flow Rate FiO2 02/05/17 11:45 97.9 76 18 141/68 100 02/05/17 07:54 97.9 82 19 131/64 98 02/05/17 07:49 99 21 02/05/17 04:00 97.5 80 17 140/78 100 02/05/17 00:00 97.5 66 17 123/62 100 02/04/17 22:00 70 02/04/17 20:30 99 21 02/04/17 20:00 97.5 62 17 146/76 100 02/04/17 17:02 18 02/04/17 16:00 98.1 70 19 119/62 98 -: 02/05/17 0440 02/05/17 0440 Tubes & Lines: [place] Physical Exam General Appearance: Well Developed, Well Nourished, No Acute Distress, Comfortable, Pale Throat Throat Exam: Oral Mucosa [place] & Moist Neck Neck Exam: Neck Supple Pulmonary Resp Exam: Clear Bilaterally, Breath Sounds Equal Cardiology CV Exam: Regular, Normal Sinus Rhythm, Good Perfusion Gastrointestinal/Abdomen GI Exam: Soft, Bowel Sounds Present, Distended Musculoskeletal MS Exam: Joints Intact, Normal Tone Integumentary Skin Exam: Warm, Dry Extremeties Extremities Exam: No Edema, Pedal Pulses Palpable Neurologic Neuro Exam: Alert, Awake, Oriented, Speech Clear, Moving All Extremities Psychiatric Psych Exam: Appropriate Responses Assessment/Plan Discussed Condition With: Patient, Relative Assessment Summary: SHELLEY/Acute Renal Failure, Diabetes Mellitus, CKD Stage IV Electrolyte Assessment: Hypocalcemia, Hypokalemia Problem List: (1) Acute on chronic kidney failure Plan: Acute renal failure was due to sepsis, renal hypoperfusion ; may have progressed to ATN likely underlying diabetic nephropathy; less than one gram proteinuria renal function improving gradually - creatinine 2.4 -> 2.3 -> 2.2. 800cc UOP/ 24 hours Off IVFs now Bladder scans 1ml, follow recommendations per monitor renal function daily avoid nephrotoxins Patient reports she wants to go home soon, renal function is stable and this point and continues gradual improvement. If discharged soon, will need close outpatient follow-up of renal function. (2) Gallstone ileus Plan: s/p gallstone removal repeat CT reviewed, no procedures planned surgery following t (3) Diabetes mellitus Plan: insulin as needed monitor glucose (4) Secondary hyperparathyroidism (of renal origin) Plan: severely low Vit D, hypocalcemic, PTH elevated calcitriol was increased Problem Qualifiers (1) Diabetes mellitus: Qualified Code: E11.620 - Type 2 diabetes mellitus with diabetic dermatitis, without long-term current use of insulin Kevin Yung MD Feb 05, 2017 15:47
--- NOTE | 2017-02-05 22:30 | HHI.PR ---
Addendum to Inpatient Note Addendum Reason: Additional Documentation Additional Information OFF SERVICE NOTE Ms. Marie is a 51 y/o CF with a PMHx of T2DM, CKD, and osteomyelitis s/p L forefoot amputations presenting with 2 days of ABD pain and vomiting. She was found to have acute on chronic renal failure and a gallstone ileus of her small bowel on CT. Uncomplicated laparoscopic stone removal was performed on 01/31/17. Patient had acute onset of fever and tachycardia on 02/01 with rebound tenderness on exam. CT showed new onset hydronephrosis without obstruction, but no site of abscess or new infection. Linezolid, Zosyn, Fluconazole, and Flagyl were started for empiric ABX coverage for her post-op fever. BC were negative and UC grew Ciprofloxacin sensitive Pseudomonas. Her ABX were then DC after 3 days and Ciprofloxacin was started and has been continued. Urology was consulted for the BL hydronephrosis and recommended outpatient follow up. Nephrology was consulted for her acute on chronic renal failure. Over her hospital course her creatinine has declined and outpatient follow up was recommended by Nephrology at this point. Otherwise she has been uncomplicated. Case management has been consulted for assistance on placement for rehabilitation once discharged. Alli Chaparro MD R1 Feb 05, 2017 22:29
[2017-02-06] VITALS: BP 167/78; PULSE 84; RESP 17; TEMP 96.1; O2SAT 100
[2017-02-06 04:00] VITALS: BP 136/62; PULSE 72; RESP 17; TEMP 97; O2SAT 100
[2017-02-06] MEDS: HEPARIN SODIUM - SQ 10,000 UNITS/ML VIAL SQ SCH (04:05)
[2017-02-06] MEDS: INSULIN ASPART SUPPLEMENTAL SCALE SQ SCH (05:14)
[2017-02-06] MEDS: NYSTATIN 100,000 U/GM PWD 15 GM BTL TOPICAL SCH (05:14)
[2017-02-06 05:22] LABS: BICARBONATE 20.8 MEQ/L (21.0-32.0); POTASSIUM 3.8 MEQ/L (3.5-5.1)
--- NOTE | 2017-02-06 06:41 | HHI.DCPOC ---
Discharge Care Plan Diagnosis: (1) Gallstone ileus (2) Acute on chronic kidney failure (3) Hydronephrosis (4) Urinary tract infection Goals to Promote Your Health * To prevent worsening of your condition and complications * To maintain your health at the optimal level Directions to Meet Your Goals Take your medications as prescribed Follow your dietary instruction Follow activity as directed Keep your appointments as scheduled Take your immunizations and boosters as scheduled If your symptoms worsen call your PCP, if no PCP go to Urgent Care Center or Emergency Room Smoking is Dangerous to Your Health. Avoid second hand smoke Call the 24-hour hour crisis hotline for domestic abuse at Essie Coley MD R2 Feb 06, 2017 06:41
--- NOTE | 2017-02-06 06:44 | HHI.FF ---
Face to Face Verification Diagnosis: (1) Gallstone ileus (2) Acute on chronic kidney failure (3) Physical deconditioning Physical Therapy Order: Evaluate and Treat Occupational Therapy Order: Evaluate and Treat I have seen patient Tejas Marie on 02/06/17. My clinical findings support the need for the requested home health care services because: Ltd mobility - disease progression Need for psychosocial assistance High risk of falls I certify that my clinical findings support that this patient is homebound because: Post-op weakness Essie Coley MD R2 Feb 06, 2017 06:43 Luis Ward MD R1 Feb 06, 2017 10:40
[2017-02-06] MEDS ORDERED: CIPR-9 PO (06:47)
[2017-02-06] MEDS ORDERED: LISI2.5T3 PO (06:47)
[2017-02-06] MEDS ORDERED: CALC.25 PO (06:49)
[2017-02-06] MEDS ORDERED: NORC5TAB PO (06:52)
[2017-02-06] MEDS ORDERED: ACETAMINOPHEN/HYDROcodone 325 MG/5 MG TAB PO PRN (07:00)
[2017-02-06] MEDS ORDERED: NALOXONE HCL 0.4 MG/ML AMP IV PRN (07:00)
[2017-02-06] MEDS ORDERED: ACETAMINOPHEN/HYDROcodone 325 MG/7.5 MG TAB PO PRN (07:00)
[2017-02-06 08:00] VITALS: BP 141/70; PULSE 90; RESP 18; TEMP 97.8; O2SAT 98
[2017-02-06] MEDS: SODIUM CHLORIDE 0.9% FLUSH 5 ML FLUSH FLUSH SCH (08:27)
[2017-02-06] MEDS: CALCITRIOL 0.25 MCG CAP PO SCH (08:27)
[2017-02-06] MEDS: CIPROFLOXACIN 500 MG TAB PO SCH (08:27)
--- NOTE | 2017-02-06 10:45 | HHI.NPPN ---
Subjective Renal Failure: Chronic, Acute, Stage IV History of Present Illness 51 year old with ckd and now with ARF, Gall stone Ileus s/p removal Interval History Sitting up in chair. Looks well. Renal function is better. (Angelique Sharp) Review of Systems General Constitutional: Fatigue (Angelique Sharp) Gastrointestinal Gastrointestinal: Abdominal Pain (Angelique Sharp) Objective Data Data 02/05/17 02/06/17 19:00 07:00 Intake Total 1080 ml 480 ml Output Total 900 ml Balance 180 ml 480 ml Intake Oral 1080 ml 480 ml IV Total 0 ml Output Urine Total 900 ml # Voids 5 # Bowel Movements 0 Vital Signs Date Time Temp Pulse Resp B/P Pulse Ox O2 Delivery O2 Flow Rate FiO2 02/06/17 08:00 97.8 90 18 141/70 98 02/06/17 04:00 97.0 72 17 136/62 100 02/06/17 00:00 96.1 84 17 167/78 100 02/05/17 20:00 71 02/05/17 20:00 96.2 73 17 132/60 100 02/05/17 16:00 97.7 89 19 124/61 100 02/05/17 11:45 97.9 76 18 141/68 100 (Angelique Sharp) -: 02/05/17 0440 02/06/17 0413 Tubes & Lines: [place] (Angelique Sharp) Physical Exam General Appearance: Well Developed, Well Nourished, No Acute Distress, Comfortable, Pale (Angelique Sharp) Throat Throat Exam: Oral Mucosa [place] & Moist (Angelique Sharp) Neck Neck Exam: Neck Supple (Angelique Sharp) Pulmonary Resp Exam: Clear Bilaterally, Breath Sounds Equal (Angelique Sharp) Cardiology CV Exam: Regular, Normal Sinus Rhythm, Good Perfusion (Angelique Sharp) Gastrointestinal/Abdomen GI Exam: Soft, Bowel Sounds Present, Distended (Angelique Sharp) Musculoskeletal MS Exam: Joints Intact, Normal Tone (Angelique Sharp) Integumentary Skin Exam: Warm, Dry (Angelique Sharp) Extremeties Extremities Exam: No Edema, Pedal Pulses Palpable (Angelique Sharp) Neurologic Neuro Exam: Alert, Awake, Oriented, Speech Clear, Moving All Extremities ( Angelique Sharp) Psychiatric Psych Exam: Appropriate Responses (Angelique Sharp) Assessment/Plan Discussed Condition With: Patient, Relative Assessment Summary: SHELLEY/Acute Renal Failure, Diabetes Mellitus, CKD Stage IV Electrolyte Assessment: Hypocalcemia, Hypokalemia Problem List: (1) Acute on chronic kidney failure Plan: Acute renal failure was due to sepsis, renal hypoperfusion ; may have progressed to ATN likely underlying diabetic nephropathy; less than one gram proteinuria renal function improved and stable she is non oliguric tolerating oral fluids, off IVF she can follow with urology for hydronephrosis after discharge on cipro for UTI (pseudomonas) cleared for discharge from renal perspective (2) Gallstone ileus Plan: s/p gallstone removal repeat CT reviewed, no procedures planned surgery following tolerating diet (3) Diabetes mellitus Plan: insulin as needed monitor glucose (4) Secondary hyperparathyroidism (of renal origin) Plan: severely low Vit D, hypocalcemic, PTH elevated on calcitriol (Angelique Sharp) Plan patient was seen and examined. Agree with above assessment and plan. Renal function has improved. She can be discharged from renal standpoint. (Aneesh Rainey MD) Problem Qualifiers (1) Diabetes mellitus: Qualified Code: E11.620 - Type 2 diabetes mellitus with diabetic dermatitis, without long-term current use of insulin Angelique Sharp Feb 06, 2017 10:45 Aneesh Rainey MD Feb 06, 2017 21:03
[2017-02-06 10:47] VITALS: O2SAT 96
--- NOTE | 2017-02-06 11:50 | HHI.FPPN ---
Subjective Remarks No acute events overnight. Vital signs unremarkable. This morning patient reports that she is ready to go. States abdominal pain has much improved and she is ambulating in the room without issues. She does not want any home health physical therapy. (Essie Coley MD R2) Objective Vitals Vital Signs Date Time Temp Pulse Resp B/P Pulse Ox O2 Delivery O2 Flow Rate FiO2 02/06/17 10:47 96 21 02/06/17 08:00 97.8 90 18 141/70 98 02/06/17 04:00 97.0 72 17 136/62 100 02/06/17 00:00 96.1 84 17 167/78 100 02/05/17 20:00 71 02/05/17 20:00 96.2 73 17 132/60 100 02/05/17 16:00 97.7 89 19 124/61 100 02/05/17 11:45 97.9 76 18 141/68 100 I/O 02/05/17 02/05/17 02/05/17 02/06/17 02/06/17 02/06/17 07:00 15:00 23:00 07:00 15:00 23:00 Intake Total 240 ml 1080 ml 240 ml 240 ml Output Total 900 ml Balance 240 ml 180 ml 240 ml 240 ml Intake Oral 240 ml 1080 ml 240 ml 240 ml IV Total 0 ml 0 ml 0 ml Output Urine Total 900 ml # Voids 2 3 2 # Bowel Movements 0 (Essie Coley MD R2) Result Diagram: 02/05/17 0440 02/06/17 0413 Objective Remarks GEN: Obese female sitting in chair in no acute distress. CV: Distant heart sounds, but without obvious murmurs. RRR. LUNGS: Distant lung sounds but otherwise clear. GI: Soft, tender to mild palpation diffusely, but with no guarding. No palpable masses. NEURO/PSYCH: AAOx3. Normal speech (Essie Coley MD R2) A/P Assessment and Plan Ms. Marie is a 51 y/o CF with a PMHx of T2DM, CKD, and osteomyelitis s/p L forefoot amputation. She was admitted for gallstone ileus and acute on chronic kidney disease. Gallstone removal from the small bowel performed on 01/30/17. Discharge Planning Today [facility] Attending Attestation Patient seen and examined. Case reviewed and discussed with the resident team. Agree with plan of care as discussed with me and documented in the resident note. (Angelique Zepeda MD) Problem List: (1) Gallstone ileus Status: Acute Plan: Presented due to bilious vomiting with subjective fever/chills. Found to have gallstone ileus on CT. Laparoscopic stone removal on 01/31/[address] Bridges. Acute onset of fever and tachycardia on 02/01 with rebound tenderness on exam. Symptoms have improved. -Symptoms of tachycardia improved since 02/01/2017 -No leukocytosis -CT abdomen: Probable gallstone ileus. Nonobstructing left renal stone. Small amount of air in the collecting system of the left kidney. -Encouraged PT/OT and incentive spirometry Consulted Gen. surgery: Appreciate recommendations * Laparoscopic stone removal on 01/31/[address] Bridges, pathology shows a huge ( 5 cm in it's broadest dimension) gallstone * OOB as tolerated * Encouraged incentive spirometer and acapella * CT ABD 02/01: Mildly distended small bowel without signs of obstruction. Gallstone has been removed. BL hydronephrosis has developed with uncertain etiology. Nonobstructing stones of the L kidney. * Stable from GS Medications: * Zosyn (02/01-02/04) * Linezolid (02/01-02/04) * Diflucan (02/01-02/03) * Metronidazole () * Ciprofloxacin (02/04- * Fluids, see rate below (2) Sepsis Status: Resolved Plan: Laparoscopic stone removal on 01/31/[address] Bridges. Acute onset of fever and tachycardia on 02/01 with rebound tenderness on exam. Met sepsis criteria based on tachycardia and fever. -CXR: Mild left base atelectasis and borderline compensated cardiomegaly -CT abdomen with oral contrast ordered -Repeat UA ordered via straight catheter shows pansensitive Pseudomonas -Blood cultures ordered: negative so far -ABX transitioned to PO Ciprofloxacin Medications: * Zosyn (02/01-02/04) * Linezolid (02/01-02/04) * Diflucan (02/01-02/03) * Metronidazole (-02/04) * Ciprofloxacin (02/04- * Fluids, see rate below (3) Acute on chronic kidney failure Status: Resolved Plan: Patient with CKD, is not seen by nephrology as an outpt. Per chart review patient's last creatinine baseline in 2013 ranges from 1.84 - 2.3. -Improving creatinine Nephrology consulted: Appreciate recommendations * Acute renal failure may be due to sepsis, renal hypoperfusion. May have progressed to ATN. * Likely underlying diabetic nephropathy * Should be on SERGIO/ARB on discharge * Will need close outpatient follow up of renal function at discharge * On Calcitriol * Cleared for dc Urology consulted, Appreciate Recommendations * CT ABD 02/01: Mildly distended small bowel without signs of obstruction. Gallstone has been removed. BL hydronephrosis has developed with uncertain etiology. Nonobstructing stones of the L kidney. * Post-void residual minimal * No urological intervention need at this time * Consider anti-cholinergic for urge incontinence once bowel function improves * Outpatient treatment of kidney stone (4) Analisa infection Status: Acute Plan: Patient found to have Analisa infection on pannus folds and anal region Topical nystatin to be applied to infected areas every 8 hours (5) Diabetes mellitus Status: Chronic Plan: Patient with history of diabetes mellitus. BG well controlled without supplemental insulin Sliding scale insulin discontinued as not coverage has been needed since admission (6) Asthma Status: Chronic Plan: Patient with history of asthma Albuterol 2.5 mg every 2 hours when necessary for shortness of breath or wheezing pt reports her breathing is great and she does not need breathing treatments now. (7) Nutrition, metabolism, and development symptoms Status: Acute Plan: Fluids:none Electrolytes: Improving Creatinine. Daily Calcitriol Diet: Diabetic diet as tolerated GI prophylaxis: Protonix DVT prophylaxis: SCDs, Heparin (Essie Coley MD R2) Problem Qualifiers (1) Diabetes mellitus: Qualified Code: E11.620 - Type 2 diabetes mellitus with diabetic dermatitis, without long-term current use of insulin (2) Asthma: Qualified Code: J45.909 - Uncomplicated asthma, unspecified asthma severity Essie Coley MD R2 Feb 06, 2017 11:50 Angelique Zepeda MD Feb 08, 2017 14:38
[2017-02-06 11:55] VITALS: BP 161/70; PULSE 78; RESP 17; TEMP 96.1; O2SAT 100
--- NOTE | 2017-02-06 11:56 | HHI.DS ---
Discharge Summary Admission Date Jan 27, 2017 at 10:19 Discharge Date: Feb 06, 2017 Admitting Diagnosis Acute on chronic kidney failure, lactic acidosis (1) Gallstone ileus Plan: Presented due to bilious vomiting with subjective fever/chills. Found to have gallstone ileus on CT. Laparoscopic stone removal on 01/31/[address] Birdges. Acute onset of fever and tachycardia on 02/01 with rebound tenderness on exam. Symptoms have improved. -Symptoms of tachycardia improved since 02/01/2017 -No leukocytosis -CT abdomen: Probable gallstone ileus. Nonobstructing left renal stone. Small amount of air in the collecting system of the left kidney. -Encouraged PT/OT and incentive spirometry Consulted Gen. surgery: Appreciate recommendations * Laparoscopic stone removal on 01/31/[address] Bridges, pathology shows a huge ( 5 cm in it's broadest dimension) gallstone * OOB as tolerated * Encouraged incentive spirometer and acapella * CT ABD 02/01: Mildly distended small bowel without signs of obstruction. Gallstone has been removed. BL hydronephrosis has developed with uncertain etiology. Nonobstructing stones of the L kidney. * Stable from GS Medications: * Zosyn (02/01-02/04) * Linezolid (02/01-02/04) * Diflucan (02/01-02/03) * Metronidazole () * Ciprofloxacin (02/04- * Fluids, see rate below (2) Sepsis Plan: Laparoscopic stone removal on 01/31/[address] Bridges. Acute onset of fever and tachycardia on 02/01 with rebound tenderness on exam. Met sepsis criteria based on tachycardia and fever. -CXR: Mild left base atelectasis and borderline compensated cardiomegaly -CT abdomen with oral contrast ordered -Repeat UA ordered via straight catheter shows pansensitive Pseudomonas -Blood cultures ordered: negative so far -ABX transitioned to PO Ciprofloxacin Medications: * Zosyn (02/01-02/04) * Linezolid (02/01-02/04) * Diflucan (02/01-02/03) * Metronidazole () * Ciprofloxacin (02/04- * Fluids, see rate below (3) Acute on chronic kidney failure Plan: Patient with CKD, is not seen by nephrology as an outpt. Per chart review patient's last creatinine baseline in 2013 ranges from 1.84 - 2.3. -Improving creatinine Nephrology consulted: Appreciate recommendations * Acute renal failure may be due to sepsis, renal hypoperfusion. May have progressed to ATN. * Likely underlying diabetic nephropathy * Should be on SERGIO/ARB on discharge * Will need close outpatient follow up of renal function at discharge * On Calcitriol * Cleared for dc Urology consulted, Appreciate Recommendations * CT ABD 02/01: Mildly distended small bowel without signs of obstruction. Gallstone has been removed. BL hydronephrosis has developed with uncertain etiology. Nonobstructing stones of the L kidney. * Post-void residual minimal * No urological intervention need at this time * Consider anti-cholinergic for urge incontinence once bowel function improves * Outpatient treatment of kidney stone (4) Analisa infection Plan: Patient found to have Analisa infection on pannus folds and anal region Topical nystatin to be applied to infected areas every 8 hours (5) Diabetes mellitus Plan: Patient with history of diabetes mellitus. BG well controlled without supplemental insulin Sliding scale insulin discontinued as not coverage has been needed since admission (6) Asthma Plan: Patient with history of asthma Albuterol 2.5 mg every 2 hours when necessary for shortness of breath or wheezing pt reports her breathing is great and she does not need breathing treatments now. (7) Nutrition, metabolism, and development symptoms Plan: Fluids:none Electrolytes: Improving Creatinine. Daily Calcitriol Diet: Diabetic diet as tolerated GI prophylaxis: Protonix DVT prophylaxis: SCDs, Heparin Consultants Nephrology General surgery Urology Procedures Diagnostic laparoscopic , removal of gallstone Brief History Ms. Marie is a 51 y/o CF with a PMHx of T2DM, CKD, and osteomyelitis s/p L forefoot amputations presented with 2 days of ABD pain and vomiting. She states that she has had 4-5 episodes of vomiting over each of the last 2 days prior to admission. She describes the emesis as bilious without food particles or blood. She also endorses crampy, widespread abdominal pain lasting over those 2 days which she attributes to constantly vomiting. She also states that she's had nausea with intermittent fever and chills, but has not taken her temperature. She states that she has not had much to eat over the last couple of days, but has been drinking appropriately. She does state that her roommate has had similar symptoms within the last week. Otherwise she has no complaints and denies any chest pain, shortness of breath, or calf tenderness. Of note, she currently does not take any medications for her DM. She states that she does check her BG daily and has been running 110-150 which is elevated from her baseline according to her. She is aware that she has CKD, but does not see a senior occupational therapist. She denies any recent NSAID use or any OTC medications other than her prescribed Cimetidine. She was found to be in acute renal failure with a very elevated creatinine of almost 7 and now today over 7. She initially said she would not have dialysis but agreed today if it was life threatening that she would agree wo it. She was also found to have a cholecystitis and gallstone ileus with a very distended bowel so an NG tube was placed. She also initially declined a gates catheter but agrees to one today when it was explained that there was no real way to keep track of her renal output as she just wet the bed last night so we are unsure if she could be becoming oliguric. She feels better this am with the NG tube as far as her abdominal problems go. When asked about any past history of cardiac problems she completely denied them. She also is not very active but walks with her walker at home and denies any chest pain or pressure or other problems when ambulating. She denied any chest pain except when she had "so much vomiting". CBC/BMP: 02/05/17 0440 02/06/17 0413 Significant Findings Laboratory Tests Test 02/04/17 02/05/17 02/06/17 03:19 04:40 04:13 Red Blood Count 3.56 MIL/MM3 3.63 MIL/MM3 (4.00-5.30) (4.00-5.30) Hemoglobin 9.5 GM/DL 9.7 GM/DL (11.6-15.3) (11.6-15.3) Hematocrit 29.5 % 30.0 % (35.0-46.0) (35.0-46.0) Mean Corpuscular Hemoglobin 26.6 PG 26.9 PG (27.0-34.0) (27.0-34.0) Platelet Count 117 TH/MM3 121 TH/MM3 (150-450) (150-450) Mean Platelet Volume 11.1 FL (7.0-11.0) Monocytes (%) (Auto) 9.8 % (0.0-8.0) Eosinophils (%) (Auto) 8.6 % (0.0-4.0) Lymphocytes # (Auto) 0.8 TH/MM3 (1.0-4.8) Chloride Level 108 MEQ/L 110 MEQ/L 112 MEQ/L (98-107) (98-107) (98-107) Blood Urea Nitrogen 23 MG/DL (7-18) 21 MG/DL (7-18) 20 MG/DL (7-18) Creatinine 2.30 MG/DL 2.26 MG/DL 2.15 MG/DL (0.50-1.00) (0.50-1.00) (0.50-1.00) Estimat Glomerular Filtration 22 ML/MIN (>89) 23 ML/MIN (>89) 24 ML/MIN (>89) Rate Random Glucose 113 MG/DL (74-106) Calcium Level 7.7 MG/DL 8.1 MG/DL 7.7 MG/DL (8.5-10.1) (8.5-10.1) (8.5-10.1) Carbon Dioxide Level 19.8 MEQ/L 20.8 MEQ/L (21.0-32.0) (21.0-32.0) Imaging Last Impressions Chest X-Ray 02/01/17 Signed Impressions: Service Date/Time: Wednesday, February 01, 2017 09:21 - CONCLUSION: Mild left base atelectasis and borderline compensated cardiomegaly. Morales Cleveland MD Abdomen/Pelvis CT 02/01/17 Signed Impressions: Service Date/Time: Wednesday, February 01, 2017 15:37 - CONCLUSION: 1. Mildly distended small bowel appears to represent an ileus. No point of obstruction clearly seen. The gallstone previously seen in the distal jejunum has been removed. 2. Bilateral hydronephrosis has developed, exact etiology uncertain. I don't clearly see an obstructing stone. There are nonobstructing stones of the left kidney as above. Morales Cleveland MD Renal Ultrasound 01/27/17 0000 Signed Impressions: Service Date/Time: Friday, January 27, 2017 12:08 - CONCLUSION: 1. Echogenic kidneys which can be seen with medical renal disease. 2. Nonobstructing calculus measures 2.1 cm in the lower pole left kidney. 3. Nonvisualization of the bladder. There is air in the bladder on most recent CT scan of the abdomen/pelvis. This could be infectious and likely the main reason cannot visualize bladder. Anselmo Shelton MD PE at Discharge GEN: Obese female sitting in chair in no acute distress. CV: Distant heart sounds, but without obvious murmurs. RRR. LUNGS: Distant lung sounds but otherwise clear. GI: Soft, tender to mild palpation diffusely, but with no guarding. No palpable masses. NEURO/PSYCH: AAOx3. Normal speech Hospital Course Ms. Marie is a 51 y/o CF with a PMHx of T2DM, CKD, and osteomyelitis s/p L forefoot amputations presenting with 2 days of ABD pain and vomiting. She was found to have acute on chronic renal failure and a gallstone ileus of her small bowel on CT. Uncomplicated laparoscopic stone removal was performed on 01/31/17. Patient had acute onset of fever and tachycardia on 02/01 with rebound tenderness on exam. CT showed new onset hydronephrosis without obstruction, but no site of abscess or new infection. Linezolid, Zosyn, Fluconazole, and Flagyl were started for empiric ABX coverage for her post-op fever. BC were negative and UC grew Ciprofloxacin sensitive Pseudomonas. Her ABX were then DC after 3 days and Ciprofloxacin was started and has been continued. Urology was consulted for the BL hydronephrosis and recommended outpatient follow up. Nephrology was consulted for her acute on chronic renal failure. Over her hospital course her creatinine has declined and outpatient follow up was recommended by Nephrology. Patient was discharged in stable condition. Pt Condition on Discharge: Stable Discharge Disposition: Discharge Home Discharge Instructions DIET: Follow Instructions for: Renal Failure Diet Activities you can perform: Regular-No Restrictions Follow up Referrals: Appointment for Follow Up - 1 Week with PCP Nephrology - 1 Week with Kevin Yung MD Surgical - 1 Week with Eduardo Bridges MD Urology - 02/18/17 with Ronny Mcgraw MD New Orders: BASIC METABOLIC PROF - 1 Week New Medications: Hydrocodone-Acetaminophen (Marlow) 5-325 mg Tab 1 TAB PO Q6H PRN PAIN #20 Ref 0 TAB Lisinopril (Lisinopril) 2.5 Mg Tab 2.5 MG PO DAILY #30 Ref 0 TAB Calcitriol (Rocaltrol) 0.25 Mcg Cap 0.5 MCG PO DAILY #60 CAP Ciprofloxacin (Cipro) 500 Mg Tab 500 MG PO Q12HR #10 TAB Discontinued Medications: Cimetidine (Cimetidine) 200 Mg Tab 200 MG PO STOMACH ACIDITY Ref 0 TAB Diphenhydramine HCl (Benadryl Allergy) 25 Mg Cap Lactase (Lactaid) 3,000 Unit Tab Essie Coley MD R2 Feb 06, 2017 11:56
--- NOTE | 2017-02-06 13:31 | HHI.PR ---
Subjective Subjective Notes "I want to go home today!" Objective Vitals/I&O Vital Signs Date Time Temp Pulse Resp B/P Pulse Ox O2 Delivery O2 Flow Rate FiO2 02/06/17 11:55 96.1 78 17 161/70 100 02/06/17 10:47 21 02/04/17 07:21 Nasal Cannula Labs Laboratory Tests Test 02/06/17 04:13 Sodium Level 143 Potassium Level 3.8 Chloride Level 112 Carbon Dioxide Level 20.8 Anion Gap 10 Blood Urea Nitrogen 20 Creatinine 2.15 Estimat Glomerular Filtration 24 Rate Random Glucose 82 Calcium Level 7.7 Radiology Last 48 hours Impressions Renal Ultrasound 01/27/17 0000 Signed Impressions: Service Date/Time: Friday, January 27, 2017 12:08 - CONCLUSION: 1. Echogenic kidneys which can be seen with medical renal disease. 2. Nonobstructing calculus measures 2.1 cm in the lower pole left kidney. 3. Nonvisualization of the bladder. There is air in the bladder on most recent CT scan of the abdomen/pelvis. This could be infectious and likely the main reason cannot visualize bladder. Anselmo Shelton MD Cardiovascular: Regular Lungs: Clear Abdomen: Other (lap sites c/d/i; non tender; non distended ) Extremities: No edema A/P Assessment and Plan 51 year old female with an obstructing gallstone ileus,POD7 Dx lap, lap removal of FB/gallstone, ua +pseudomonas -Tolerating regular diet -Pain control -+BM -GS clear for DC -Follow up with Dr. Bridges in 1 week Attending Statement patient seen at bedside pod 7 doing well afebrile stable abd pain improving d/c today Attestation The exam, history, and the medical decision-making described in the above note were completed with the assistance of the mid-level provider. I reviewed and agree with the findings presented. I attest that I had a [id number] encounter with the patient on the same day, and personally performed and documented my assessment and findings in the medical record. Lashawn Crowe Feb 06, 2017 13:31 Eduardo Bridges MD Feb 11, 2017 21:42
[2017-03-30] MEDS ORDERED: LISI2.5T3 PO (14:02)
[2017-03-30] MEDS ORDERED: NEUR100C PO (15:30)
[2017-04-05] MEDS ORDERED: BETH25TA2 PO (10:54)
[2017-04-05] MEDS ORDERED: BACT400T PO (10:54)
[2017-04-21] MEDS ORDERED: COUM5TAB PO (16:59)
== END 2017-02-06 12:54 | disposition home or self-care (01) | DRG 344 ==
LOC: NEPC 08:28 → NEDA 10:19 → NEDH 19:04 → N07A 20:26
PROVIDERS: ADMIT Family Medicine; ATTEND Family Medicine
PROC: 0DC Gastrointestinal System, Extirpation (ICD-10-PCS; principal; 2017-01-30 11:50)
DX: K56.3 Gallstone ileus (principal); A41.9 Sepsis, unspecified organism; N17.0 Acute kidney failure with tubular necrosis; K31.84 Gastroparesis; E87.2 Acidosis; E11.21 Type 2 diabetes mellitus with diabetic nephropathy; E11.43 Type 2 diabetes mellitus with diabetic autonomic (poly)neuropathy; N18.4 Chronic kidney disease, stage 4 (severe); N39.0 Urinary tract infection, site not specified; N25.81 Secondary hyperparathyroidism of renal origin; N13.30 Unspecified hydronephrosis; E87.1 Hypo-osmolality and hyponatremia; B37.2 Candidiasis of skin and nail; B96.5 Pseudomonas (aeruginosa) (mallei) (pseudomallei) as the cause of diseases classified elsewhere; K21.9 Gastro-esophageal reflux disease without esophagitis; N20.0 Calculus of kidney; E11.620 Type 2 diabetes mellitus with diabetic dermatitis; J45.909 Unspecified asthma, uncomplicated; E66.9 Obesity, unspecified; Z68.32 Body mass index [BMI] 32.0-32.9, adult; E11.22 Type 2 diabetes mellitus with diabetic chronic kidney disease; E83.51 Hypocalcemia; E87.6 Hypokalemia; R00.0 Tachycardia, unspecified; I12.9 Hypertensive chronic kidney disease with stage 1 through stage 4 chronic kidney disease, or unspecified chronic kidney disease; R94.31 Abnormal electrocardiogram [ECG] [EKG]; I34.0 Nonrheumatic mitral (valve) insufficiency; K66.0 Peritoneal adhesions (postprocedural) (postinfection); N32.81 Overactive bladder; R32 Unspecified urinary incontinence; Z87.442 Personal history of urinary calculi; Z88.5 Allergy status to narcotic agent; Z88.8 Allergy status to other drugs, medicaments and biological substances
CPT/HCPCS: 71010; 74176; 76775; 76937; 80048; 80053; 80069; 81001; 82043; 82306; 82550; 82552; 82948; 83605; 83690; 83735; 83970; 84100; 84134; 84155; 84484; 84703; 85025; 85027; 85610; 85730; 86850; 86900; 86901; 87040; 87077; 87086; 87186; 87641; 88300; 93005; 93306; 94150; 94640; 94664; 94667; 94668; 96374; 96375; C9113; J0131; J0610; J0690; J0696; J1100; J1450; J1644; J1885; J2020; J2060; J2250; J2270; J2370; J2405; J2543; J3010; J3480; J7030; Q9963

== ENCOUNTER 2017-02-16 12:24 | Inpatient (IN) | payer MEDICAID ==
[2017-02-16] VITALS (9 sets, daily range): BP systolic 100–121; BP diastolic 54–91; PULSE 76–87; RESP 16–20; TEMP 97.8–98.7; O2SAT 96–98
[~2017-02-16] VITALS: Ht 175.3 cm; Wt 130.7 kg
[~2017-02-16 12:24] MED LIST changes: +CALC.25 PO; +CIPR-9 PO; -DICY10CA13 PO; -LACT4500 PO; +LISI2.5T3 PO; -LOMO PO; +NORC5TAB PO; -PRIL20CA PO; -Z.0.COMMODE-3:1
[2017-02-16] MEDS ORDERED: SODIUM CHLOR 0.9% 1000 ML INJ 1,000 ML IV SCH (16:36)
[2017-02-16] MEDS ORDERED: SODIUM CHLORIDE 0.9% FLUSH 10 ML FLUSH IVF PRN (16:45)
--- NOTE | 2017-02-16 17:12 | RADRPT ---
EXAM DATE/TIME: 02/16/2017 17:04 [facility] COMPARISON: CHEST SINGLE AP, February 01, 2017, 9:21. INDICATIONS : Syncope MEDICAL HISTORY : Hypertension. Thyroid disease. Neuropathy. Migraine. Gastroparesis. GERD. Diabetes. SURGICAL HISTORY : Tonsillectomy. Toes amuptated, left foot. Lithotripsy. ENCOUNTER: Subsequent ACUITY: 1 day PAIN SCORE: 0/10 LOCATION: chest FINDINGS: A single view of the chest demonstrates the lungs to be symmetrically, but under aerated without evid ence of mass, infiltrate or effusion. The cardiomediastinal contours are unremarkable. Osseous stru ctures are intact. CONCLUSION: Hypoinflation with no acute cardiopulmonary process. Sarath Anthony MD on February 16, 2017 at 17:10 Board Certified Radiologist. This report was verified electronically.
--- NOTE | 2017-02-16 17:15 | RADRPT ---
EXAM DATE/TIME: 02/16/2017 17:06 [facility] COMPARISON: No previous studies available for comparison. INDICATIONS : Left hand thumb pain, fell MEDICAL HISTORY : Hypertension. Thyroid disease. Neuropathy. Migraine. Gastroparesis. GERD. Diabetes. SURGICAL HISTORY : Tonsillectomy. ENCOUNTER: Initial ACUITY: 1 day PAIN SCORE: 8/10 LOCATION: Left Hand FINDINGS: Three view examination of the left hand demonstrates a mildly comminuted and slightly displaced fract ure through the proximal metadiaphysis of the first metacarpal. Old avulsion injury or accessory ossi fication distal to the ulnar styloid. CONCLUSION: 1. Mildly comminuted and slightly displaced fracture through the proximal metadiaphysis of the first metacarpal. 2. Well-corticated accessory ossification or old avulsion injury of the ulnar styloid Sarath Anthony MD on February 16, 2017 at 17:11 Board Certified Radiologist. This report was verified electronically.
[2017-02-16 17:20] LABS: AUTOMATED NEUTROPHIL # 3.5 TH/MM3 (1.8-7.7); BASOPHIL % 0.2 % (0.0-2.0); EOSINOPHIL # 0.2 TH/MM3 (0-0.4); EOSINOPHIL % 3.8 % (0.0-4.0); HEMATOCRIT 23.4 % (35.0-46.0); HEMO FLAGS DIFF FINAL; LYMPH % 19.9 % (9.0-44.0); MEAN CORPUSCULAR HGB CONC 32.5 % (32.0-36.0); MONO % 7.2 % (0.0-8.0); NEUT % 68.9 % (16.0-70.0); PLATELET COUNT 187 TH/MM3 (150-450); RED BLOOD COUNT 2.82 MIL/MM3 (4.00-5.30); RED CELL DISTRIBUTION WIDTH 15.6 % (11.6-17.2)
[2017-02-16 17:24] LABS: APTT (PATIENT) 29.3 SEC (24.3-30.1); PROTHROMBIN TIME - PATIENT 10.8 SEC (9.8-11.6)
[2017-02-16 17:37] LABS: ALKALINE PHOSPHATASE 64 U/L (45-117); ALT (GPT) 10 U/L (10-53); ANION GAP 12 MEQ/L (5-15); AST (GOT) 13 U/L (15-37); BICARBONATE 16.7 MEQ/L (21.0-32.0); BLOOD UREA NITROGEN 67 MG/DL (7-18); CHLORIDE 106 MEQ/L (98-107); GLOMERULAR FILTRATION RATE 4 ML/MIN (>89); POTASSIUM 6.1 MEQ/L (3.5-5.1); SODIUM (NA) 135 MEQ/L (136-145); TOTAL BILIRUBIN ADULT 0.2 MG/DL (0.2-1.0)
[2017-02-16 17:45] LABS: CALCIUM-PROTEIN CORRECTED 5.9 MG/DL (8.5-10.1)
--- NOTE | 2017-02-16 17:56 | RADRPT ---
EXAM DATE/TIME: 02/16/2017 17:08 [facility] COMPARISON: CT ABDOMEN & PELVIS W/O CONTRAST, February 01, 2017, 15:37. INDICATIONS : Abdominal pain, syncopal episode. ORAL CONTRAST: No oral contrast ingested. RADIATION DOSE: 16.87 CTDIvol (mGy) MEDICAL HISTORY : Renal calculi. Hypertension. Gastroparesis. SURGICAL HISTORY : None. ENCOUNTER: Initial ACUITY: 1 day PAIN SCALE: 5/10 LOCATION: Abdomen. TECHNIQUE: Volumetric scanning of the abdomen and pelvis was performed. Using automated exposure control and ad justment of the mA and/or kV according to patient size, radiation dose was kept as low as reasonably achievable to obtain optimal diagnostic quality images. FINDINGS: There is evidence of an intermediate density subcutaneous collection within the right lower abdominal wall which measures 10.2 x 8.0 cm in size and may represent a small subcutaneous hematoma. Clinical correlation is recommended. The patient is status post cholecystectomy. There are calcified nonobstructing left renal calculi wh ich are unchanged. The largest measures 10 mm. There is severe ureteropelvicaliectasis bilaterally without calcified obstructing ureteral calculi noted. The urinary bladder is distended. The finding s raise the possibility of bladder outlet obstruction. Clinical correlation is recommended. There is a partially calcified right adnexal mass which measures 3.6 cm in size and is unchanged compared to the previous examination. No bowel obstruction is noted. Evaluation of the solid organs of the abdo men is limited by the lack of intravenous contrast. Degenerative changes and scoliosis of the thorac olumbar spine are noted. CONCLUSION: 1. Intermediate density collection within the right anterior lower abdominal wall measuring 10.2 x 8. 0 cm consistent with possible subcutaneous hematoma. Clinical correlation is recommended. 2. Severe ureteropelvicaliectasis bilaterally with urinary bladder distension suggesting possible dimitri dder outlet obstruction. 3. Calcified nonobstructing left renal calculi. 4. Degenerative changes and scoliosis of the thoracolumbar spine. 5. Partially calcified right adnexal mass measuring 3.6 cm which is unchanged compared to the previou s examination. Rigo Iqbal MD on February 16, 2017 at 17:41 Board Certified Radiologist. This report was verified electronically.
[2017-02-16] MEDS ORDERED: SODIUM CHLOR 0.9% 1000 ML INJ 1,000 ML IV ONE (18:15)
[2017-02-16] MEDS ORDERED: SODIUM BICARBONATE 8.4% INJ 50 MEQ/50 ML SYR IV PUSH ONE (18:15)
[2017-02-16] MEDS ORDERED: INSULIN HUMAN REGULAR 1,000 UNITS/10 ML VIAL IVP ONE (18:15)
[2017-02-16] MEDS ORDERED: CALCIUM GLUCONATE 10% 1 GM/10 ML VIAL IV PUSH ONE ×2 (18:15)
[2017-02-16] MEDS ORDERED: DEXTROSE 50% IN WATER 50 ML VIAL(D50) IV PUSH ONE (18:15)
[2017-02-16] MEDS ORDERED: SODIUM CHLOR 0.9% 250 ML INJ 250 ML IV ONE (18:15)
--- NOTE | 2017-02-16 18:44 | PD ---
HPI Chief Complaint: Fall Time Seen by Provider: 16:32 Travel History International Travel<30 days: No Contact w/Intl Traveler<30days: No Traveled to known affect area: No History of Present Illness HPI 51-year-old female came to the emergency room brought by EMS with history of syncopal episode and fall. Patient was on the toilet having a bowel movement when she got nauseous. She vomited some bilious material as per her. This caused her to become lightheaded and passed out. She fell with her left arm extended and her hand is hurting she said. She denied hitting her head. When EMS arrived the blood pressure was 66/44. They were unable to get an IV but on route the blood pressure improved. Once she was here it was in 1 teens systolic. Patient is awake and answering questions appropriately. She is fully oriented. She does have history of MR. There is no family member or friends with her currently to give any additional history. Patient had a surgery in this institution couple weeks ago. [facility] Past Medical History Narrative Medical List of her past medical, surgical, social and family history was reviewed from the nursing note. Anemia: Yes (IRON DEFICIENCY) Arthritis: Yes Asthma: Yes Anxiety: Yes Depression: Yes Cancer: No Cardiovascular Problems: No Developmental Delay: Yes Diabetes: Yes Patient Takes Glucophage: No Diminished Hearing: No Gastrointestinal Disorders: Yes (gastroparesis) GERD: Yes Gout: Yes Headaches: Yes Immune Disorder: No Kidney Stones: Yes Musculoskeletal: Yes Neurologic: Yes (NEUROPATHY) Psychiatric: Yes ("i have mental problems but I don't know what they are") Respiratory: Yes (ASTHMA, HX PNEUMONIA) Migraines: Yes Pneumonia: Yes Seizures: No Sickle Cell Disease: No Tetanus Vaccination: Unknown Influenza Vaccination: No ?: Not Menopausal: Yes Past Surgical History AICD: No Arteriovenous Shunt: No Genitourinary Surgery: Yes (LITHOTRIPSY) Insulin Pump: No Joint Replacement: No Oral Surgery: Yes (TONSILLECTOMY) Pacemaker: No Tonsillectomy: Yes Social History Alcohol Use: No Tobacco Use: No Substance Use: No Allergies-Medications (Allergen,Severity, Reaction): Coded Allergies: Sinequan (Verified Allergy, Severe, HIVES, 09/05/14) Codeine (Verified Adverse Reaction, Severe, NAUSEA/VOMITING, 09/05/14) *MDRO Multi-Drug Resistant Organism (Unverified Adverse Reaction, Unknown , 02/17/17) MRSA (foot) - 06/29/11, 08/04/11 MRSA PCR Screen POSITIVE 02/17/17 Comments List of her allergies reviewed from the nursing note. Reported Meds & Prescriptions Reported Meds & Active Scripts Active Muse (Hydrocodone-Acetaminophen) 5-325 mg Tab 1 Tab PO Q6H PRN Rocaltrol (Calcitriol) 0.25 Mcg Cap 0.5 Mcg PO DAILY Lisinopril 2.5 Mg Tab 2.5 Mg PO DAILY Cipro (Ciprofloxacin HCl) 500 Mg Tab 500 Mg PO Q12HR Wheelchair Elevated Leg Rest (Z.0.wheelelr) Device 1 Unit Narrative Medication List of her home medications reviewed from the nursing note. Review of Systems Except as stated in HPI: all other systems reviewed are Neg Physical Exam Narrative GENERAL: Awake, alert, moderate distress, morbidly obese SKIN: Warm and dry. Anemic HEAD: Atraumatic. Normocephalic. EYES: Pupils equal and round. No scleral icterus. No injection or drainage. Pallor ENT: No nasal bleeding or discharge. Dry mucous membrane NECK: Trachea midline. No JVD. CARDIOVASCULAR: Regular rate and rhythm. No murmur appreciated. RESPIRATORY: No accessory muscle use. Clear to auscultation. Breath sounds equal bilaterally. GASTROINTESTINAL: Abdomen soft, nondistended. Hepatic and splenic margins not palpable. Bruising around the anterior abdominal wall. Old surgical incision with no signs of infection or discharge. Abdomen tender to touch. MUSCULOSKELETAL: No obvious deformities. No clubbing. No cyanosis. No edema. NEUROLOGICAL: Awake and alert. No obvious cranial nerve deficits. Motor grossly within normal limits. Normal speech. PSYCHIATRIC: Appropriate mood and affect; insight and judgment normal. Data Data Last Documented VS Orders Ammonia (02/16/17 16:36) Complete Blood Count With Diff (02/16/17 16:36) Comprehensive Metabolic Panel (02/16/17 16:36) Prothrombin Time / Inr (Pt) (02/16/17 16:36) Act Partial Throm Time (Ptt) (02/16/17 16:36) Troponin I (02/16/17 16:36) Lactic Acid Sepsis Protocol (02/16/17 16:36) Urinalysis - C+S If Indicated (02/16/17 16:36) Blood Culture (02/16/17 16:36) Chest, Single Ap (02/16/17 16:36) Blood Glucose (02/16/17 16:36) Ecg Monitoring (02/16/17 16:36) Iv Access Insert/Monitor (02/16/17 16:36) Oximetry (02/16/17 16:36) Sodium Chloride 0.9% Flush (Ns Flush) (02/16/17 16:45) Sodium Chlor 0.9% 1000 Ml Inj (Ns 1000 M (02/16/17 16:36) Hand, Complete ([id number]) (02/16/17 ) Ct Abd/Pel W/O Iv Contrast (02/16/17 ) Splinting (02/16/17 ) Sodium Chlor 0.9% 1000 Ml Inj (Ns 1000 M (02/16/17 18:15) Type And Screen (02/16/17 18:05) Red Blood Cells (Rbc) (02/16/17 18:05) Sodium Chlor 0.9% 250 Ml Inj (Ns 250 Ml (02/16/17 18:15) Calcium Gluconate Inj (Calcium Gluconate (02/16/17 18:15) Calcium Gluconate Inj (Calcium Gluconate (02/16/17 18:15) Insulin Human Regular Inj (Novolin R Inj (02/16/17 18:15) Dextrose 50% In Bj (Vial) Inj (D50w (Vi (02/16/17 18:15) Sodium Bicarbonate 8.4% Inj (Sodium Bica (02/16/17 18:15) Admit Order (Ed Use Only) (02/16/17 18:11) Creatine Kinase (Cpk) (02/16/17 17:00) Labs MDM Medical Decision Making Medical Screen Exam Complete: Yes Emergency Medical Condition: Yes Medical Record Reviewed: Yes Interpretation(s) Twelve-lead EKG was reviewed by me. Normal sinus rhythm, left axis deviation, old inferior anterior GA, nonspecific ST-T wave changes. Heart rate of 83 bpm. Differential Diagnosis Sepsis, dehydration, electrolyte abnormality Narrative Course 6:30 PM patient was given IV antibiotic as per sepsis protocol. I started her with IV fluid. Workup for altered mental status was initiated. Patient refused to get CAT scan of her head done because she was claustrophobic. However CAT scan of the abdomen pelvis was done. CT abdomen pelvis came back as a large subcutaneous anterior abdominal wall hematoma and obstructive uropathy. Blood test results came back and patient was anemic and critically high creatinine and BUN. The labs were trended back and all these lab values it definitely significantly abnormal from her last blood test results. Patient was hyperkalemia and hypocalcemia. She was given IV calcium gluconate, IV bicarbonate, insulin, D50. I discussed the case with Dr. Villa who will consult on the patient. Patient initially refused Goddard catheter but eventually she has agreed to it. Consult with the gaming host as well who is down here to admit the patient to. I spoke with the surgeon Dr. Bridges who had operated on this patient and he will consult on this patient as well. 2 units of PRBC has been ordered. Patient is admitted to the ICU. Critical Care Narrative Aggregate critical care time was 75 minutes. Time to perform other separately billable procedures was not included in the critical care time. My time did not include minutes spent treating any other patients simultaneously or on activities that did not directly contribute to the patient's treatment. The services I provided to this patient were to treat and/or prevent clinically significant deterioration that could result in: Acute renal failure, hyperkalemia, hypocalcemia, anemia, blood transfusion I provided critical care services requiring my management, as noted below: Chart data review, documentation time, medication orders and management, vital sign assessments/reviewing monitor data, ordering and reviewing lab tests, ordering and interpreting/reviewing x-rays and diagnostic studies, care of the patient and discussion of the patient with the admitting physicians. Procedures EKG Prior to Arrival: No Physician Communication Physician Communication Dr. Bridges, Dr. Mukherjee, Dr. Villa Diagnosis Primary Impression: Acute renal failure Qualified Code: N17.9 - Acute renal failure, unspecified acute renal failure type Additional Impressions: Obstructive uropathy large subcutaneous hematoma Symptomatic anemia Dehydration Hyperkalemia Hypocalcemia Closed fracture of first metacarpal bone of left hand Qualified Code: S62.235A - Other closed nondisplaced fracture of base of first metacarpal bone of left hand, initial encounter Admitting Information Admitting Physician Requests: Admit Luis Enrique Sandoval MD Feb 16, 2017 18:44 Sodium Level 135 MEQ/L Potassium Level 6.1 MEQ/L Chloride Level 106 MEQ/L Carbon Dioxide Level 16.7 MEQ/L Anion Gap 12 MEQ/L Blood Urea Nitrogen 67 MG/DL Creatinine 9.50 MG/DL Estimat Glomerular Filtration 4 ML/MIN Rate Random Glucose 69 MG/DL Lactic Acid Level 0.6 mmol/L Calcium Level 5.8 MG/DL Protein Corrected Calcium 5.9 MG/DL Total Bilirubin 0.2 MG/DL Aspartate Amino Transf 13 U/L (AST/SGOT) Alanine Aminotransferase 10 U/L (ALT/SGPT) Alkaline Phosphatase 64 U/L Troponin I LESS THAN 0.02 NG/ML Total Protein 6.9 GM/DL Albumin 2.3 GM/DL Ammonia 38 MCMOL/L MDM Medical Decision Making Medical Screen Exam Complete: Yes Emergency Medical Condition: Yes Medical Record Reviewed: Yes Interpretation(s) Twelve-lead EKG was reviewed by me. Normal sinus rhythm, left axis deviation, old inferior anterior GA, nonspecific ST-T wave changes. Heart rate of 83 bpm. Differential Diagnosis Sepsis, dehydration, electrolyte abnormality Narrative Course 6:30 PM patient was given IV antibiotic as per sepsis protocol. I started her with IV fluid. Workup for altered mental status was initiated. Patient refused to get CAT scan of her head done because she was claustrophobic. However CAT scan of the abdomen pelvis was done. CT abdomen pelvis came back as a large subcutaneous anterior abdominal wall hematoma and obstructive uropathy. Blood test results came back and patient was anemic and critically high creatinine and BUN. The labs were trended back and all these lab values it definitely significantly abnormal from her last blood test results. Patient was hyperkalemia and hypocalcemia. She was given IV calcium gluconate, IV bicarbonate, insulin, D50. I discussed the case with Dr. Villa who will consult on the patient. Patient initially refused Goddard catheter but eventually she has agreed to it. Consult with the gaming host as well who is down here to admit the patient to. I spoke with the surgeon Dr. Bridges who had operated on this patient and he will consult on this patient as well. 2 units of PRBC has been ordered. Patient is admitted to the ICU. Critical Care Narrative Aggregate critical care time was 75 minutes. Time to perform other separately billable procedures was not included in the critical care time. My time did not include minutes spent treating any other patients simultaneously or on activities that did not directly contribute to the patient's treatment. The services I provided to this patient were to treat and/or prevent clinically significant deterioration that could result in: Acute renal failure, hyperkalemia, hypocalcemia, anemia, blood transfusion I provided critical care services requiring my management, as noted below: Chart data review, documentation time, medication orders and management, vital sign assessments/reviewing monitor data, ordering and reviewing lab tests, ordering and interpreting/reviewing x-rays and diagnostic studies, care of the patient and discussion of the patient with the admitting physicians. Procedures EKG Prior to Arrival: No Physician Communication Physician Communication Dr. Bridges, Dr. Mukherjee, Dr. Villa Diagnosis Primary Impression: Acute renal failure Qualified Code: N17.9 - Acute renal failure, unspecified acute renal failure type Additional Impressions: Obstructive uropathy large subcutaneous hematoma Symptomatic anemia Dehydration Hyperkalemia Hypocalcemia Admitting Information Admitting Physician Requests: Admit Luis Enrique Sandoval MD Feb 16, 2017 18:44
[2017-02-16] MEDS ORDERED: MIDAZOLAM HCL 2 MG/2 ML VIAL IV PUSH ONE (18:45)
[2017-02-16] MEDS ORDERED: MISCELLANEOUS NURSING INFORMATION XX SCH (19:00)
[2017-02-16] MEDS ORDERED: ZOLPIDEM TARTRATE 5 MG TAB PO PRN (19:00)
[2017-02-16] MEDS ORDERED: SODIUM CHLORIDE 0.9% FLUSH 10 ML FLUSH PRN (19:00)
[2017-02-16] MEDS ORDERED: ACETAMINOPHEN 325 MG TAB PO PRN (19:00)
[2017-02-16] MEDS ORDERED: RESP: ALBUTEROL 2.5 MG/IPRATROPIUM 0.5 MG NEB (PRN) INH (19:00)
[2017-02-16] MEDS ORDERED: CHLORHEXIDINE GLUCONATE 2 % 1 PACK (2 CLOTHS) TOP PRN (19:00)
--- NOTE | 2017-02-16 19:56 | HHI.HP ---
HPI Service Critical Care Medicine Primary Care Physician No Primary Care Physician Admission Diagnosis acute renal failure, hyperkalemia, hypocalcemia, anemia, hematoma Diagnosis: Travel History International Travel<30 Days: No Contact w/Intl Traveler <30 Da: No Traveled to Known Affected Are: No History of Present Illness 51-year-old morbidly obese female came with history of syncopal episode and fall while the patient was on the toilet. She was having a bowel movement when she got nauseous. She vomited some bilious material and face caused her to become lightheaded and passed out. She fell with her left arm extended and her hand is hurting. She denies hitting her head. When EMS arrived the blood pressure was 66/44. In the emergency department her blood pressure was improved. Patient is awake and answering questions appropriately. She is oriented 3. Patient had a surgery in this institution couple weeks ago. Review of Systems Constitutional: COMPLAINS OF: Diaphoretic episodes, Dizziness, DENIES: Fatigue , Fever, Weight gain, Weight loss, Chills, Change in appetite, Night Sweats Endocrine: DENIES: Abnorml menstrual pattern, Heat/cold intolerance, Polydipsia , Polyuria, Polyphagia Eyes: DENIES: Blurred vision, Diplopia, Eye inflammation, Eye pain, Vision loss , Photosensitivity, Double Vision Ears, nose, mouth, throat: DENIES: Tinnitus, Hearing loss, Vertigo, Nasal discharge, Oral lesions, Throat pain, Hoarseness, Ear Pain, Running Nose, Epistaxis, Sinus Pain, Toothache, Odynophagia Respiratory: DENIES: Apneas, Cough, Snoring, Wheezing, Hemoptysis, Sputum production, Shortness of breath Cardiovascular: DENIES: Chest pain, Palpitations, Syncope, Dyspnea on Exertion , PND, Lower Extremity Edema, Orthopnea, Claudication Gastrointestinal: DENIES: Abdominal pain, Black stools, Bloody stools, Constipation, Diarrhea, Nausea, Vomiting, Difficulty Swallowing, Anorexia Genitourinary: DENIES: Abnormal vaginal bleeding, Dysmenorrhea, Dyspareunia, Sexual dysfunction, Urinary frequency, Urinary incontinence, Urgency, Hematuria , Dysuria, Nocturia, Vaginal discharge Musculoskeletal: DENIES: Joint pain, Muscle aches, Stiffness, Joint Swelling, Back pain, Neck pain Integumentary: DENIES: Abnormal pigmentation, Pruritus, Rash, Nail changes, Breast masses, Breast skin changes, Nipple discharge Hematologic/lymphatic: DENIES: Bruising, Lymphadenopathy Immunologic/allergic: DENIES: Eczema, Urticaria Neurologic: DENIES: Abnormal gait, Headache, Localized weakness, Paresthesias, Seizures, Speech Problems, Tremor, Poor Balance Psychiatric: DENIES: Anxiety, Confusion, Mood changes, Depression, Hallucinations, Agitation, Suicidal Ideation, Homicidal Ideation, Delusions Past Family Social History Allergies: Coded Allergies: Sinequan (Verified Allergy, Severe, HIVES, 09/05/14) Codeine (Verified Adverse Reaction, Severe, NAUSEA/VOMITING, 09/05/14) *MDRO Multi-Drug Resistant Organism (Unverified Adverse Reaction, Unknown , 02/02/17) MRSA (foot) - 06/29/11, 08/04/11 MRSA PCR Screens NEGATIVE - 01/30/17 & 02/01/17 CLEARED BY INFECTION CONTROL Past Medical History Gastroparesis Type 2 DM Osteomyelitis of L foot s/p amputation CKD stage 4 GERD Depression Iron deficiency anemia Asthma Unknown behavioral problems, has been on disability and may have these reevaluated Migraines Kidney stones Past Surgical History Lithotripsy Tonsillectomy Left forefoot amputation Reported Medications Reported Meds & Active Scripts Active Hope (Hydrocodone-Acetaminophen) 5-325 mg Tab 1 Tab PO Q6H PRN Rocaltrol (Calcitriol) 0.25 Mcg Cap 0.5 Mcg PO DAILY Lisinopril 2.5 Mg Tab 2.5 Mg PO DAILY Cipro (Ciprofloxacin HCl) 500 Mg Tab 500 Mg PO Q12HR Wheelchair Elevated Leg Rest (Z.0.wheelelr) Device 1 Unit Active Ordered Medications Current Medications Medications (Trade) Dose Ordered Sig/Jaylen Route PRN Reason Start Time Stop Time Status Last Admin Dose Admin Sodium Chloride 250 ml @ 15 mls/hr ONCE ONCE IV 02/16/17 18:15 02/17/17 10:54 Sodium Chloride (NS 1000 ml Inj) 1,000 ml @ 125 mls/hr Q8H IV 02/16/17 18:56 Sodium Chloride (NS Flush) 2 ml UNSCH PRN .XX FLUSH AFTER USING IV ACCESS 02/16/17 19:00 Sodium Chloride (NS Flush) 2 ml BID .XX 02/16/17 21:00 02/16/17 21:22 Acetaminophen (Tylenol) 650 mg Q6H PRN PO FEVER >101F 02/16/17 19:00 Morphine Sulfate (Morphine Inj) 2 mg Q2H PRN IV PAIN SCALE 6 TO 10 02/16/17 19:00 Famotidine (Pepcid Inj) 10 mg Q12HR IV PUSH 02/16/17 21:00 Lorazepam (Ativan Inj) 1 mg Q4H PRN IV Agitation/Sedation 02/16/17 19:00 Ondansetron HCl (Zofran Inj) 4 mg Q6H PRN IV NAUSEA OR VOMITING 02/16/17 19:00 Metoclopramide HCl (Reglan Inj) 5 mg Q6H PRN IV NAUSEA OR VOMITING 02/16/17 19:00 Docusate Sodium (Colace) 100 mg BID PO 02/16/17 21:00 Zolpidem Tartrate (Ambien) 5 mg HS PRN PO INSOMNIA 02/16/17 19:00 Heparin Sodium (Porcine) (Heparin Inj) 5,000 units Q8H SQ 02/16/17 22:00 Miscellaneous Information 1 Q361D XX 02/16/17 19:00 Chlorhexidine Gluconate (Chlorhexidine 2% Cloth) 3 pack Taper DAILY@04 TOP 02/17/17 04:00 02/13/18 03:59 Chlorhexidine Gluconate (Chlorhexidine 2% Cloth) 3 pack UNSCH PRN TOP HYGIENIC CARE 02/16/17 19:00 Acetaminophen/ Hydrocodone Bitart (Hope 5-325 Mg) 1 tab Q6H PRN PO PAIN 1-10 02/16/17 20:00 Family History Noncontributory Social History Negative 3 Physical Exam Vital Signs Vital Signs Date Time Temp Pulse Resp B/P Pulse Ox O2 Delivery O2 Flow Rate FiO2 02/16/17 19:13 77 18 115/54 97 Room Air 02/16/17 18:30 80 18 121/71 98 Room Air 02/16/17 16:30 18 97 Room Air 02/16/17 16:30 98 Room Air 02/16/17 16:30 85 18 115/65 98 Room Air 02/16/17 16:30 98.7 86 20 115/65 98 Physical Exam GENERAL: Morbidly obese patient in no acute distress. SKIN: Warm and dry. HEAD: Normocephalic. EYES: No scleral icterus. No injection or drainage. NECK: Supple, trachea midline. No JVD or lymphadenopathy. CARDIOVASCULAR: Regular rate and rhythm without murmurs, gallops, or rubs. RESPIRATORY: Breath sounds equal bilaterally. No accessory muscle use. GASTROINTESTINAL: Abdomen soft, non-tender, nondistended. MUSCULOSKELETAL: No cyanosis, or edema. BACK: Nontender without obvious deformity. No CVA tenderness. EXTREMITIES: No clubbing cyanosis or edema Laboratory Laboratory Tests Test 02/16/17 02/16/17 17:00 17:40 White Blood Count 5.0 Red Blood Count 2.82 Hemoglobin 7.6 Hematocrit 23.4 Mean Corpuscular Volume 83.0 Mean Corpuscular Hemoglobin 27.0 Mean Corpuscular Hemoglobin 32.5 Concent Red Cell Distribution Width 15.6 Platelet Count 187 Mean Platelet Volume 9.4 Neutrophils (%) (Auto) 68.9 Lymphocytes (%) (Auto) 19.9 Monocytes (%) (Auto) 7.2 Eosinophils (%) (Auto) 3.8 Basophils (%) (Auto) 0.2 Neutrophils # (Auto) 3.5 Lymphocytes # (Auto) 1.0 Monocytes # (Auto) 0.4 Eosinophils # (Auto) 0.2 Basophils # (Auto) 0.0 CBC Comment DIFF FINAL Differential Comment Prothrombin Time 10.8 Prothromb Time International 1.0 Ratio Activated Partial 29.3 Thromboplast Time Sodium Level 135 Potassium Level 6.1 Chloride Level 106 Carbon Dioxide Level 16.7 Anion Gap 12 Blood Urea Nitrogen 67 Creatinine 9.50 Estimat Glomerular Filtration 4 Rate Random Glucose 69 Lactic Acid Level 0.6 Calcium Level 5.8 Protein Corrected Calcium 5.9 Total Bilirubin 0.2 Aspartate Amino Transf 13 (AST/SGOT) Alanine Aminotransferase 10 (ALT/SGPT) Alkaline Phosphatase 64 Troponin I LESS THAN 0.02 Total Protein 6.9 Albumin 2.3 Ammonia 38 Date/Time Procedure Status Source Growth 02/16/17 17:15 Aerobic Blood Culture Received Blood Peripheral Pending 02/16/17 17:15 Anaerobic Blood Culture Received Blood Peripheral Pending Result Diagram: 02/16/17 1700 02/16/17 1700 Imaging Last 24 hours Impressions Chest X-Ray 02/16/17 1636 Signed Impressions: Service Date/Time: January 17:04 - CONCLUSION: Hypoinflation with no acute cardiopulmonary process. Sarath Anthony MD Hand X-Ray 02/16/17 0000 Signed Impressions: Service Date/Time: January 17:06 - CONCLUSION: 1. Mildly comminuted and slightly displaced fracture through the proximal metadiaphysis of the first metacarpal. 2. Well-corticated accessory ossification or old avulsion injury of the ulnar styloid Sarath Anthony MD Abdomen/Pelvis CT 02/16/17 0000 Signed Impressions: Service Date/Time: January 17:08 - CONCLUSION: 1. Intermediate density collection within the right anterior lower abdominal wall measuring 10.2 x 8.0 cm consistent with possible subcutaneous hematoma. Clinical correlation is recommended. 2. Severe ureteropelvicaliectasis bilaterally with urinary bladder distension suggesting possible bladder outlet obstruction. 3. Calcified nonobstructing left renal calculi. 4. Degenerative changes and scoliosis of the thoracolumbar spine. 5. Partially calcified right adnexal mass measuring 3.6 cm which is unchanged compared to the previous examination. Rigo Iqbal MD Assessment and Plan Problem List: (1) Hydronephrosis, bilateral ICD Code: N13.30 Status: Acute (2) Acute renal failure ICD Code: N17.9 Status: Acute (3) Hyperkalemia ICD Code: E87.5 Status: Acute (4) Dehydration ICD Code: E86.0 Status: Acute Assessment and Plan Acute renal failure - Due to bladder outlet obstruction - Ureteropelvicaliectasis bilaterally - Goddard placed in the ED - Insulin sodium bicarbonate calcium gluconate and glucose IV emergently - IV hydration - Repeat BMP Abdominal wall hematoma - Gen Surgery evaluation Anemia - Due to above - Monitor H&H - Transfuse for hemoglobin below 7 Bladder outlet obstruction - Goddard in place - Urology consult Mildly comminuted and slightly displaced fracture through the proximal metadiaphysis of the first metacarpal - Urology consult Hypertension - Hold lisinopril due to hyperkalemia - Hydralazine when necessary DVT GI prophylaxis - Subcutaneous heparin and Pepcid Critical Care: The total critical care time was 35 minutes. Time to perform other separately billable procedures was not included in the critical care time. Problem Qualifiers (1) Acute renal failure: Qualified Code: N17.9 - Acute renal failure, unspecified acute renal failure type Eric Mukherjee MD Feb 16, 2017 19:56
[2017-02-16] MEDS: DOCUSATE SODIUM 100 MG CAP PO SCH (21:00)
[2017-02-16 21:08] LABS: BACTERIA, URINE RARE /hpf; BLOOD, URINE MOD (NEG); GLUCOSE,URINE NEG (NEG); KETONE, URINE NEG (NEG); NITRITE,URINE NEG (NEG); SQUAMOUS EPITHELIAL CELL URINE 1 /hpf (0-5); URINE COLOR YELLOW (YELLW/STRAW)
[2017-02-16 21:10] LABS: COMMENT (UR) CATH-CULTURE IND; CULTURE IF INDICATED CATH CULTURE IND
[2017-02-16] MEDS: SODIUM CHLORIDE 0.9% FLUSH 10 ML FLUSH SCH (21:22)
[2017-02-16 21:26] LABS: CREATINE KINASE 79 U/L (26-192)
[2017-02-16] MEDS: FAMOTIDINE 20 MG/2 ML VIAL IV PUSH SCH (21:56)
[2017-02-16] MEDS: HEPARIN SODIUM - SQ 10,000 UNITS/ML VIAL SQ SCH (21:56)
[2017-02-16] MEDS: SODIUM CHLOR 0.9% 1000 ML INJ 1,000 ML IV SCH ×2 (21:56→22:48)
[2017-02-17] VITALS (11 sets, daily range): BP systolic 104–142; BP diastolic 55–69; PULSE 68–89; RESP 13–23; TEMP 97.3–98.4; O2SAT 96–98
[2017-02-17 00:54] LABS: BICARBONATE 14.2 MEQ/L (21.0-32.0); POTASSIUM 5.5 MEQ/L (3.5-5.1)
[2017-02-17 01:19] LABS: CALCIUM-PROTEIN CORRECTED 6.3 MG/DL (8.5-10.1)
[2017-02-17] MEDS: SODIUM CHLOR 0.9% 1000 ML INJ 1,000 ML IV SCH (02:56)
[2017-02-17] MEDS ORDERED: CALCIUM GLUCONATE INJ 2 GM in SODIUM CHLORIDE 0.9% INJ 100 ML IV ONE ×2 (03:00→06:45)
[2017-02-17] MEDS: CHLORHEXIDINE GLUCONATE 2 % 1 PACK (2 CLOTHS) TOP SCH (03:03)
[2017-02-17] MEDS: HEPARIN SODIUM - SQ 10,000 UNITS/ML VIAL SQ SCH (05:51)
[2017-02-17 06:03] LABS: BASOPHIL % 1.3 % (0.0-2.0); EOSINOPHIL # 0.2 TH/MM3 (0-0.4); EOSINOPHIL % 4.6 % (0.0-4.0); HEMATOCRIT 25.7 % (35.0-46.0); HEMO FLAGS DIFF FINAL; LYMPH % 28.8 % (9.0-44.0); LYMPHOCYTE # 1.1 TH/MM3 (1.0-4.8); MEAN CELL VOLUME 83.2 FL (80.0-100.0); MEAN CORPUSCULAR HEMOGLOBIN 28.1 PG (27.0-34.0); MEAN CORPUSCULAR HGB CONC 33.7 % (32.0-36.0); MONO % 9.7 % (0.0-8.0); NEUT % 55.6 % (16.0-70.0); PLATELET COUNT 163 TH/MM3 (150-450); RED BLOOD COUNT 3.08 MIL/MM3 (4.00-5.30); RED CELL DISTRIBUTION WIDTH 15.4 % (11.6-17.2); WHITE BLOOD COUNT 3.7 TH/MM3 (4.0-11.0)
--- NOTE | 2017-02-17 06:14 | MB ---
cc: GWEN KENNEDY MD DATE OF CONSULTATION 02/16/2017 REASON FOR CONSULTATION Abdominal wall hematoma. HISTORY OF PRESENT ILLNESS The patient is a 51-year-old female multiple medical issues who presented status post syncopal fall. The patient was on the toilet having a bowel movement when she felt nauseous and had small vomiting. She felt lightheaded and passed out, fell on her arm extended and her hand, complaining of left upper extremity hand pain and abdominal wall pain. She had further workup including a CT scan which showed abdominal hematoma. The patient arrived via EMS with hypotension and was given IV fluids. Her hemoglobin was 7.6 as well. INR normal. She does have a history of mental retardation and has recent history of admission to the hospital with a bowel obstruction due to a gallstone ileus. She was taken to the operating room on 01/30/2017. The patient did progress well. However, the patient was noted to have several medical issues including a creatinine at the time of 6. Her creatinine currently is 9 as evidence of acute renal failure as well. She is being admitted to the ICU for further resuscitation and evaluation and by the medical service. PAST MEDICAL HISTORY 1. Arthritis. 2. Asthma. 3. Anxiety depression. 4. Mental retardation. 5. Diabetes. 6. Developmental delay. 7. Reflux. 8. Gout. 9. Headaches. 10. Kidney stones. 11. Neuropathy. 12. Migraines. PAST SURGICAL HISTORY 1. Lithotripsy for kidney stone. 2. Tonsillectomy. 3. Diagnostic laparoscopy with removal of gallstone ileus. SOCIAL HISTORY Denies smoking, EtOH or IVDA. ALLERGIES SINEQUAN. CODEINE. MEDICATIONS See EMR. FAMILY HISTORY Denies diabetes or hypertension. REVIEW OF SYSTEMS GENERAL: Complains of syncope. No fevers. HEENT: Denies eye pain, ear pain, scleral icterus. NECK: Denies swelling or pain. CARDIOVASCULAR: Denies palpitation. Complaint of hypotension. RESPIRATORY: Denies cough or wheeze. GI: Complains of abdominal pain and nausea. MUSCULOSKELETAL: Denies edema or arthralgia. NEUROLOGIC: GCS of 15. PSYCH: Appropriate mood and affect. : Denies dysuria, hematuria. ENDOCRINE: Complained of diabetes mellitus, polyuria, polydipsia. PHYSICAL EXAMINATION GENERAL: The patient in no current distress, noted be hypotensive on admission. VITAL SIGNS: Currently blood pressure 115/54, pulse 77, respirations 18, 97% oxygen saturation. HEENT: PERRLA. EOMI. No scleral icterus. LUNGS: Clear to auscultation. Bilateral expansion. HEART: S1-S2 regular. ABDOMEN: Soft, obese. Well-healed surgical incisions, scant drainage. Bruising to the lower abdomen. Tenderness to palpation, focal to the right lower quadrant. EXTREMITIES: No edema. Warm. NEUROLOGIC: GCS of 15. Moving all extremities. 5/5 motor. INTEGUMENT: As not above with bruising. LABORATORY AND DIAGNOSTIC DATA WBC 5, hemoglobin 7.6, hematocrit 23.4, platelets 187. Sodium 135, potassium 6.1, chloride 106, BUN is 67, creatinine 9.5, calcium 5.8, AST 113, ALT 10, alkaline phos 64, albumin 2.3. INR 1. CT reviewed by myself. Collection in the right anterior abdominal wall, 10 x 8-cm. Ureteropelvic obstruction bilaterally. Urinary bladder distension. Possible bladder outlet obstruction. Calcified left renal stone. Scoliosis of spine. Adnexal mass 3.6, unchanged. ASSESSMENT The patient is a 51-year-old female with multiple medical issues, recent admission with gallstone ileus, presents with hypotension, anemia of blood loss and abdominal hematoma. PLAN After full clinical radiologic and laboratory workup, the patient with above-named issues. At this point the patient will be admitted by the medical team, presented to the ICU. She will need transfusion and current IV fluids. The patient is currently stable at this time. Recommend IV fluid hydration. In regards to the hematoma, we will continue to observe this. If it is a expanding or not improving pain, the patient may need aspiration or evacuation. However, at this time it appears to be stable. Non-contrasted CT, however, with no evidence of active extravasation or expansion. We will hold any chemical DVT prophylaxis and give the patient TEDs and SCDs and continue to observe the patient. In regards to kidney failure, recommend nephrology consult. Urology consult may also be beneficial as they evaluated the patient on previous hospital admission. Again, we will continue observation and nonoperative management at this current time. MD HUEY Islas/KALEN /9:41 PM /6:00 AM
[2017-02-17 06:26] LABS: MAGNESIUM 1.8 MG/DL (1.5-2.5); POTASSIUM 5.5 MEQ/L (3.5-5.1); TOTAL BILIRUBIN ADULT 0.4 MG/DL (0.2-1.0)
[2017-02-17 06:37] LABS: CALCIUM-PROTEIN CORRECTED 6.7 MG/DL (8.5-10.1)
[2017-02-17] MEDS ORDERED: SODIUM CHLOR 0.9% 1000 ML INJ 1,000 ML IV ONE (07:15)
--- NOTE | 2017-02-17 07:25 | HHI.CCPN ---
Subjective Remarks/Hospital Course 51-year-old morbidly obese female came with history of syncopal episode and fall while the patient was on the toilet. She was having a bowel movement when she got nauseous. She vomited some bilious material and face caused her to become lightheaded and passed out. She fell with her left arm extended and her hand is hurting. She denies hitting her head. When EMS arrived the blood pressure was 66/44. In the emergency department her blood pressure was improved. Patient is awake and answering questions appropriately. She is oriented 3. Patient had a surgery in this institution couple weeks ago. SUBJ: Resting in bed. Hemodynamically stable. UO 2L since admission. Creat improved from 9.5 to 8 with aggressive hydration. Urology and nephrology consulted. Patient is s/p Laparoscopic stone removal on 01/31/[address] Bridges, pathology shows a huge gall stone 5 cm in it's broadest dimension. Last visit also presenting creatinine was 6.5 on 01/27/17 improved to 2 on discharge 02/06/17. Objective Vital Signs Date Time Temp Pulse Resp B/P Pulse Ox O2 Delivery O2 Flow Rate FiO2 02/17/17 06:00 72 02/17/17 04:00 98.3 16 104/55 96 02/16/17 22:13 Room Air Intake and Output 02/16/17 02/16/17 02/17/17 08:00 16:00 00:00 Output Total 1000 ml Balance -1000 ml Result Diagram: 02/17/17 0520 02/17/17 0520 Imaging Last 24 hours Impressions Chest X-Ray 02/16/17 1636 Signed Impressions: Service Date/Time: January 17:04 - CONCLUSION: Hypoinflation with no acute cardiopulmonary process. Sarath Anthony MD Hand X-Ray 02/16/17 0000 Signed Impressions: Service Date/Time: January 17:06 - CONCLUSION: 1. Mildly comminuted and slightly displaced fracture through the proximal metadiaphysis of the first metacarpal. 2. Well-corticated accessory ossification or old avulsion injury of the ulnar styloid Sarath Anthony MD Abdomen/Pelvis CT 02/16/17 0000 Signed Impressions: Service Date/Time: January 17:08 - CONCLUSION: 1. Intermediate density collection within the right anterior lower abdominal wall measuring 10.2 x 8.0 cm consistent with possible subcutaneous hematoma. Clinical correlation is recommended. 2. Severe ureteropelvicaliectasis bilaterally with urinary bladder distension suggesting possible bladder outlet obstruction. 3. Calcified nonobstructing left renal calculi. 4. Degenerative changes and scoliosis of the thoracolumbar spine. 5. Partially calcified right adnexal mass measuring 3.6 cm which is unchanged compared to the previous examination. Rigo Iqbal MD Objective Remarks GENERAL: Morbidly obese patient in no acute distress. SKIN: Warm and dry. HEAD: Normocephalic. EYES: No scleral icterus. No injection or drainage. NECK: Supple, trachea midline. No JVD or lymphadenopathy. CARDIOVASCULAR: Regular rate and rhythm without murmurs, gallops, or rubs. RESPIRATORY: Breath sounds equal bilaterally. No accessory muscle use. GASTROINTESTINAL: Abdomen soft, non-tender, nondistended. MUSCULOSKELETAL: No cyanosis, or edema. BACK: Nontender without obvious deformity. No CVA tenderness. EXTREMITIES: No clubbing cyanosis or edema. s/p L foot transmetatarsal amputation NEURO: Awake alert no focal deficits Urinary Catheter: Yes Assessment to: Continue A/P Problem List: (1) Hydronephrosis, bilateral ICD Code: N13.30 Status: Acute (2) Acute renal failure ICD Code: N17.9 Status: Acute (3) Hyperkalemia ICD Code: E87.5 Status: Acute (4) Dehydration ICD Code: E86.0 Status: Acute Assessment and Plan Acute renal failure - Due to bladder outlet obstruction - Ureteropelvicaliectasis bilaterally - Goddard placed in the ED, with improving creat and excellent UO - Insulin sodium bicarbonate calcium gluconate and glucose IV emergently, K now 5.5 - IV hydration, increase NS to 150 ml per hour. NS 1L additional bolus - Repeat BMP at 1200 -Nephrology and urology consulted pending. I don't think she needs dialysis emergently Abdominal wall hematoma - Gen Surgery evaluation-conservative management Anemia - Due to above - Monitor H&H - Transfuse for hemoglobin below 7. Received 2 units of PRBC Bladder outlet obstruction - Goddard in place - Urology consult Mildly comminuted and slightly displaced fracture through the Left proximal metadiaphysis of the first metacarpal - Ortho consult Hypertension - Hold lisinopril due to hyperkalemia - Hydralazine when necessary DVT GI prophylaxis - Subcutaneous heparin-hold due to abdominal wall hematoma and continue Pepcid Critical Care: Level 3 Hospitalist consulted to assume care in am Problem Qualifiers (1) Acute renal failure: Qualified Code: N17.9 - Acute renal failure, unspecified acute renal failure type Martin Nielsen MD Feb 17, 2017 07:25
--- NOTE | 2017-02-17 08:04 | PD.CONS ---
cc: Sultana Clarke Syncope, Closed Left 1st Metacarpal Fracture HPI Service Orthopedic Surgeons Consult Requested By Medical Staff Reason for Consult Left 1st Metacarpal Fracture Primary Care Physician No Primary Care Physician Admission Diagnosis acute renal failure, hyperkalemia, hypocalcemia, anemia, hematoma Diagnoses: (1) Closed fracture of first metacarpal bone of left hand Diagnosis: Principal (2) Dehydration (3) Hyperkalemia (4) Morbid obesity with BMI of 45.0-49.9, adult (5) Acute on chronic kidney failure Chief Complaint: Syncope / Fracture 1st Metacarpal Left History of Present Illness 51 year old , morbidly obese female admits she was using the restroom at her home yesterday and experienced an episode of syncope. She states she was having a bowel movement and 'passed out'. She states she fell onto her left side into the bath tab. She had immediate left hand pain after the incident. She states she has never experienced this before and denies hitting her head. Upon evaluation by medical staff and radiographs orthopedic consultation was requested for a closed left first metacarpal fracture. Patient was placed into a thumb spica splint at the bedside. X-rays reveal a mildly comminuted and slightly displaced fracture through the proximal metadiaphysis of the first metacarpal. A well-corticated accessory ossification or old avulsion injury of the ulnar styloid. She admits she previously fracture her left wrist 20-30 year ago and it was treated non-operatively. Previous orthopedic surgical history includes left forefoot amputation. No other signs of musculoskeletal injury noted. No other complaints at this time. Review of Systems well outlined in medical record Past Family Social History Past Medical History Gastroparesis Type 2 DM Osteomyelitis of L foot s/p amputation CKD stage 4 GERD Depression Iron deficiency anemia Asthma Unknown behavioral problems, has been on disability and may have these reevaluated Migraines Kidney stones Past Surgical History Lithotripsy Tonsillectomy Left forefoot amputation Allergies: Coded Allergies: Sinequan (Verified Allergy, Severe, HIVES, 09/05/14) Codeine (Verified Adverse Reaction, Severe, NAUSEA/VOMITING, 09/05/14) *MDRO Multi-Drug Resistant Organism (Unverified Adverse Reaction, Unknown , 02/17/17) MRSA (foot) - 06/29/11, 08/04/11 MRSA PCR Screen POSITIVE 02/17/17 Active Ordered Medications Current Medications Medications (Trade) Dose Ordered Sig/Jaylen Route Start Time Stop Time Status Last Admin Sodium Chloride 250 ml @ 15 mls/hr ONCE ONCE IV 02/16/17 18:15 02/17/17 10:54 02/16/17 21:56 (NS 1000 ml Inj) 1,000 ml @ 150 mls/hr Q6H40M IV 02/16/17 18:56 02/17/17 02:56 (NS Flush) 2 ml UNSCH PRN .XX 02/16/17 19:00 (NS Flush) 2 ml BID .XX 02/16/17 21:00 02/16/17 21:22 (Tylenol) 650 mg Q6H PRN PO 02/16/17 19:00 (Morphine Inj) 2 mg Q2H PRN IV 02/16/17 19:00 (Pepcid Inj) 10 mg Q12HR IV PUSH 02/16/17 21:00 02/16/17 21:56 (Ativan Inj) 1 mg Q4H PRN IV 02/16/17 19:00 (Zofran Inj) 4 mg Q6H PRN IV 02/16/17 19:00 (Reglan Inj) 5 mg Q6H PRN IV 02/16/17 19:00 (Colace) 100 mg BID PO 02/16/17 21:00 (Ambien) 5 mg HS PRN PO 02/16/17 19:00 (Heparin Inj) 5,000 units Q8H SQ 02/16/17 22:00 Hold 02/17/17 05:51 Miscellaneous Information 1 Q361D XX 02/16/17 19:00 (Chlorhexidine 2% Cloth) 3 pack Taper DAILY@04 TOP 02/17/17 04:00 02/13/18 03:59 02/17/17 03:03 (Chlorhexidine 2% Cloth) 3 pack UNSCH PRN TOP 02/16/17 19:00 Acetaminophen/ Hydrocodone Bitart 1 tab 1 tab Q6H PRN PO 02/16/17 20:00 Calcium Gluconate 2 gm/Sodium Chloride 120 ml @ 120 mls/hr ONCE ONCE IV 02/17/17 06:45 02/17/17 07:44 (NS 1000 ml Inj) 1,000 ml @ 999 mls/hr BOLUS ONCE IV 02/17/17 07:15 02/17/17 08:15 Reported Meds & Active Scripts Active [place] (Hydrocodone-Acetaminophen) 5-325 mg Tab 1 Tab PO Q6H PRN Rocaltrol (Calcitriol) 0.25 Mcg Cap 0.5 Mcg PO DAILY Lisinopril 2.5 Mg Tab 2.5 Mg PO DAILY Cipro (Ciprofloxacin HCl) 500 Mg Tab 500 Mg PO Q12HR Wheelchair Elevated Leg Rest (Z.0.wheelelr) Device 1 Unit Family History noncontributory Social History lives at home. denies alcohol or tobacco use. Physical Exam Vital Signs Vital Signs Date Time Temp Pulse Resp B/P Pulse Ox O2 Delivery O2 Flow Rate FiO2 02/17/17 06:00 72 02/17/17 04:00 98.3 69 16 104/55 96 02/17/17 04:00 69 02/17/17 02:00 68 02/17/17 00:14 98.1 73 13 119/58 97 02/17/17 00:00 79 02/17/17 00:00 98.1 79 23 119/58 97 02/16/17 22:40 97.8 87 20 110/91 96 02/16/17 22:19 98.7 82 20 100/56 97 02/16/17 22:13 76 17 114/60 96 Room Air 02/16/17 22:07 98.6 79 18 120/55 96 Room Air 02/16/17 21:09 84 16 120/56 97 Room Air 02/16/17 20:00 97 02/16/17 19:13 77 18 115/54 97 Room Air 02/16/17 18:30 80 18 121/71 98 Room Air 02/16/17 16:30 18 97 Room Air 02/16/17 16:30 98 Room Air 02/16/17 16:30 85 18 115/65 98 Room Air 02/16/17 16:30 98.7 86 20 115/65 98 Physical Exam LUE: Thumb spica splint and dressing dry and intact. Splint was not removed for exam. Tender to palpation with mild swelling around fracture site. Appropriate range of motion of adjacent digits. Good cap refill. 2+ radial pulse. Sensation equivalent bilaterally. Neurovascular intact. No other signs of musculoskeletal injury. Well healed scar noted from left midfoot amputation. Laboratory Laboratory Tests Test 02/16/17 02/16/17 02/16/17 02/16/17 17:00 17:40 18:36 20:19 White Blood Count 5.0 Red Blood Count 2.82 Hemoglobin 7.6 Hematocrit 23.4 Mean Corpuscular Volume 83.0 Mean Corpuscular Hemoglobin 27.0 Mean Corpuscular Hemoglobin 32.5 Concent Red Cell Distribution Width 15.6 Platelet Count 187 Mean Platelet Volume 9.4 Neutrophils (%) (Auto) 68.9 Lymphocytes (%) (Auto) 19.9 Monocytes (%) (Auto) 7.2 Eosinophils (%) (Auto) 3.8 Basophils (%) (Auto) 0.2 Neutrophils # (Auto) 3.5 Lymphocytes # (Auto) 1.0 Monocytes # (Auto) 0.4 Eosinophils # (Auto) 0.2 Basophils # (Auto) 0.0 CBC Comment DIFF FINAL Differential Comment Prothrombin Time 10.8 Prothromb Time International 1.0 Ratio Activated Partial 29.3 Thromboplast Time Sodium Level 135 Potassium Level 6.1 Chloride Level 106 Carbon Dioxide Level 16.7 Anion Gap 12 Blood Urea Nitrogen 67 Creatinine 9.50 Estimat Glomerular Filtration 4 Rate Random Glucose 69 Lactic Acid Level 0.6 Calcium Level 5.8 Protein Corrected Calcium 5.9 Total Bilirubin 0.2 Aspartate Amino Transf 13 (AST/SGOT) Alanine Aminotransferase 10 (ALT/SGPT) Alkaline Phosphatase 64 Total Creatine Kinase 79 Troponin I LESS THAN 0.02 Total Protein 6.9 Albumin 2.3 Ammonia 38 Blood Type A NEGATIVE Antibody Screen NEGATIVE Crossmatch Leukocyte-Reduced Red Blood Cells Blood Bank Comment Urine Color YELLOW Urine Turbidity HAZY Urine pH 5.0 Urine Specific [place] 1.012 Urine Protein TRACE Urine Glucose (UA) NEG Urine Ketones NEG Urine Occult Blood MOD Urine Nitrite NEG Urine Bilirubin NEG Urine Urobilinogen LESS THAN 2.0 Urine Leukocyte Esterase LARGE Urine RBC 35 Urine WBC 20 Urine Squamous Epithelial 1 Cells Urine Bacteria RARE Microscopic Urinalysis Comment CATH-CULTURE IND Test 02/16/17 02/16/17 02/17/17 22:51 23:58 05:20 Nasal Screen MRSA (PCR) POSITIVE Sodium Level 139 139 Potassium Level 5.5 5.5 Chloride Level 111 111 Carbon Dioxide Level 14.2 16.0 Anion Gap 14 12 Blood Urea Nitrogen 63 64 Creatinine 8.54 8.04 Estimat Glomerular Filtration 5 5 Rate Random Glucose 80 66 Calcium Level 6.1 6.3 Protein Corrected Calcium 6.3 6.7 Total Protein 6.6 6.2 White Blood Count 3.7 Red Blood Count 3.08 Hemoglobin 8.7 Hematocrit 25.7 Mean Corpuscular Volume 83.2 Mean Corpuscular Hemoglobin 28.1 Mean Corpuscular Hemoglobin 33.7 Concent Red Cell Distribution Width 15.4 Platelet Count 163 Mean Platelet Volume 9.4 Neutrophils (%) (Auto) 55.6 Lymphocytes (%) (Auto) 28.8 Monocytes (%) (Auto) 9.7 Eosinophils (%) (Auto) 4.6 Basophils (%) (Auto) 1.3 Neutrophils # (Auto) 2.0 Lymphocytes # (Auto) 1.1 Monocytes # (Auto) 0.4 Eosinophils # (Auto) 0.2 Basophils # (Auto) 0.0 CBC Comment DIFF FINAL Differential Comment Prothrombin Time 11.0 Prothromb Time International 1.0 Ratio Phosphorus Level 8.8 Magnesium Level 1.8 Total Bilirubin 0.4 Aspartate Amino Transf 11 (AST/SGOT) Alanine Aminotransferase 8 (ALT/SGPT) Alkaline Phosphatase 59 Albumin 2.0 Date/Time Procedure Status Source Growth 02/16/17 20:19 Urine Culture Received Urine Catheterized Urine Pending 02/16/17 17:15 Aerobic Blood Culture Received Blood Peripheral Pending 02/16/17 17:15 Anaerobic Blood Culture Received Blood Peripheral Pending Result Diagram: 02/17/17 0520 02/17/17 0520 Imaging Last 48 hours Impressions Chest X-Ray 02/16/17 1636 Signed Impressions: Service Date/Time: January 17:04 - CONCLUSION: Hypoinflation with no acute cardiopulmonary process. Sarath Anthony MD Hand X-Ray 02/16/17 0000 Signed Impressions: Service Date/Time: January 17:06 - CONCLUSION: 1. Mildly comminuted and slightly displaced fracture through the proximal metadiaphysis of the first metacarpal. 2. Well-corticated accessory ossification or old avulsion injury of the ulnar styloid Sarath Anthony MD Abdomen/Pelvis CT 02/16/17 0000 Signed Impressions: Service Date/Time: January 17:08 - CONCLUSION: 1. Intermediate density collection within the right anterior lower abdominal wall measuring 10.2 x 8.0 cm consistent with possible subcutaneous hematoma. Clinical correlation is recommended. 2. Severe ureteropelvicaliectasis bilaterally with urinary bladder distension suggesting possible bladder outlet obstruction. 3. Calcified nonobstructing left renal calculi. 4. Degenerative changes and scoliosis of the thoracolumbar spine. 5. Partially calcified right adnexal mass measuring 3.6 cm which is unchanged compared to the previous examination. Rigo Iqbal MD Course well outlined in medical record Assessment & Plan Problem List: (1) Closed fracture of first metacarpal bone of left hand (2) Morbid obesity with BMI of 45.0-49.9, adult (3) Acute renal failure (4) Hyperkalemia (5) Sepsis Assessment and Plan The findings were discussed with the patient. Dr Christoph Kuo has reviewed images and details of this case. Recommendations are given for non-operative management at this time. Patient is to remain in thumb spica splint. X-rays have been ordered for post splint application review. Progress physical therapy for mobilization and pain control. Non weight bearing status left upper extremity. Continue pain control. Recommended orthopedic follow up in 7-10 days. Further displacement of the fracture site may require fixation. The possibility of future surgical treatment was discussed with the patient in detail, the patient acknowledges full understanding. Orthopedic clear for discharge at this time. Appreciate orthopedic involvement in patient's care. Sultana Clarke Feb 17, 2017 08:04
--- NOTE | 2017-02-17 08:40 | MB ---
cc: CHAU ONEAL MD DATE OF CONSULTATION: 02/16/2017 REASON FOR CONSULTATION Elevated BUN and creatinine for evaluation. HISTORY OF PRESENT ILLNESS This is a 51-year-old female with a past medical history of chronic kidney disease, chronic anemia, anxiety, depression, history of some growth retardation, gastroparesis, diabetes mellitus and osteomyelitis of the foot, who was brought to the hospital with a syncopal episode. I was called to see the patient because of elevated BUN and creatinine. The patient has a history of chronic kidney disease and recent acute kidney injury. She was recently discharged from the hospital on February 06. At that time she also had acute kidney injury and her creatinine went back up to as high as 7.5 and it was improving. The last one she had was 2.1 when she was discharged. The patient is not able to give much history. Most of the history was taken from the patient's chart, according to which she was transferred here mainly because of a syncopal episode while she was on the toilet. According to the history it was mentioned that she was having a bowel movement and got nauseous and vomited some bilious material and then she got light-headed and passed out. The patient recently underwent abdominal surgery with a diagnostic laparoscopy and found to have small bowel obstruction and a gallstone ileus. In the emergency department the patient was found to have urinary retention with a distended bladder. She was complaining of lower abdominal pain. A Goddard catheter was inserted and she started passing urine. PAST MEDICAL HISTORY 1. Anemia. 2. Anxiety. 3. Depression. 4. History of developmental delay. 5. Kidney stone. 6. Chronic kidney disease with acute kidney injury. PAST SURGICAL HISTORY 1. Recent laparoscopy. 2. Lithotripsy. 3. Oral surgery. REVIEW OF SYSTEMS A review of systems is limited because she is repeating things but she denies any headache, dizziness or blurring of vision. Denies any shortness of breath. No chest pain. She has some abdominal pain and discomfort mainly in the lower abdomen. There is nausea but she did not have any vomiting here. She vomited once before she can in here. There is no history of diarrhea. SOCIAL HISTORY There is no history of smoking or alcoholism. FAMILY HISTORY Noncontributory. ALLERGIES 1. CODEINE. 2. SINEQUAN. MEDICATIONS Currently she is on the following medications: 1. Normal saline at 125 an hour. 2. Colace 100 mg b.i.d. 3. She received calcium gluconate and sodium bicarbonate. 4. Famotidine 10 mg q.12h. 5. Morphine sulfate as needed. 6. Lorazepam as needed. 7. Reglan as needed. PHYSICAL EXAMINATION GENERAL: The patient is awake. She is not in acute distress. VITAL SIGNS: The last blood pressure is 120/56, temperature 98.7, oxygen saturation 97%. HEENT: Pupils equally reacting to light. Non-icteric sclera. Conjunctiva pale. NECK: Supple. JVD is not elevated. LUNGS: The patient has bilateral decreased air entry with occasional wheezing. HEART: S1, S2, regular rhythm. ABDOMEN: Obese, soft. There is mild tenderness around the umbilicus. She has some ecchymosis in the lower part of the abdomen. INVESTIGATIONS WBC count 5.0, hemoglobin 7.6, platelet count 187, neutrophils 68.9%. Sodium 135, potassium 6.1, chloride 106, bicarb 16.7, BUN 67, creatinine 9.5, calcium corrected 5.9, lactic acid 0.6, AST 13, ALT 10. Troponin-I less than 0.02. Albumin 3.3. Total protein 16. Ammonia level 38. INR is 1.0. Urinalysis is showing trace protein. Cultures are pending. IMAGING STUDIES The patient had a CT scan of the abdomen and pelvis done without IV contrast and shows an intermediate density collection within the right anterior lower abdominal wall, 10.2 x 8 cm, consistent with possible subcutaneous hematoma. Severe ureteropelvicaliectasis bilaterally with urinary bladder distention suggesting possible bladder outlet obstruction. Calcified nonobstructing left renal calculi. Degenerative changes in the thoracic spine. The patient also had a chest x-ray done which shows hypoinflation. No acute pulmonary process. Ultrasound of the kidney was done during the last admission and it shows right kidney 9.1 cm, left kidney 9.3 cm, Echogenic kidneys with nonobstructing calculus, 2.1 cm, in the lower pole of the left kidney. ASSESSMENT 1. Chronic kidney disease with acute kidney injury 2. Metabolic acidosis and severe hyperkalemia. 3. Urinary bladder obstruction. 4. Abdominal wall hematoma. 5. Severe anemia. 6. History of mental retardation. PLAN The patient has a very good amount of urine coming out. She looks dehydrated and is getting IV fluid. She got treatment for her high potassium including sodium bicarbonate and calcium. Her calcium was very low, will replace. The patient had a calcium of 7.7 during her last admission. Most likely the patient has chronic kidney disease due to hypertensive or renovascular disease and acute kidney injury because of bowel obstruction and dehydration. Continue the IV fluids. Follow the culture results. There is a possibility of urinary tract infection. She also has an abdominal wall hematoma for which surgery has been consulted. The patient was seen by Dr. Rainey recently when she was admitted, so I will ask him to follow the patient from tomorrow. Thank you for the consultation. Chau Oneal MD AQJ/BT /10:12 PM /8:34 AM FELECIA
[2017-02-17] MEDS: ONDANSETRON HCL 4 MG/2 ML VIAL IV PRN (08:50)
[2017-02-17] MEDS: DOCUSATE SODIUM 100 MG CAP PO SCH ×3 (08:50→20:34)
[2017-02-17] MEDS: FAMOTIDINE 20 MG/2 ML VIAL IV PUSH SCH ×2 (08:50→20:32)
[2017-02-17] MEDS: SODIUM CHLORIDE 0.9% FLUSH 10 ML FLUSH SCH ×2 (08:51→20:32)
[2017-02-17] MEDS ORDERED: DEXTROSE 50% IN WATER 50 ML VIAL(D50) ONE (09:37)
--- NOTE | 2017-02-17 09:50 | RADRPT ---
EXAM DATE/TIME: 02/17/2017 08:12 [facility] COMPARISON: HAND LEFT COMPLETE ([id number]), February 16, 2017, 17:06. INDICATIONS : Patient has a fracture in left hand near first digit. MEDICAL HISTORY : Gastroparesis. SURGICAL HISTORY : Laparoscopy. ENCOUNTER: Subsequent ACUITY: 4 - 6 days PAIN SCORE: 5/10 LOCATION: Left Hand near first digit. FINDINGS: The examination demonstrates a mildly displaced fracture through the base of the first metatarsal. Th ere is approximately 20% displacement of the distal fragment relative to the metatarsal head. Alignme nt is similar to previous examination dated 02/16/17. CONCLUSION: Stable fracture through the proximal first metatarsal. Kevin Brooke MD on February 17, 2017 at 9:48 Board Certified Radiologist. This report was verified electronically.
--- NOTE | 2017-02-17 09:53 | HHI.NPPN ---
Subjective Renal Failure: Chronic, Acute Interval History Sitting up in bed. On IVF. Glucose has been low. She has good urine output. creatinine better but still significantly elevated. (Angelique Sharp) Review of Systems Gastrointestinal Gastrointestinal: Nausea & Vomiting (Angelique Sharp) Musculoskeletal MS: Pain/Stiffness (Angelique Sharp) Objective Data Data 02/16/17 02/17/17 18:59 06:59 Intake Total 895 ml Output Total 2000 ml Balance -1105 ml Intake IV Total 895 ml Output Urine Total 2000 ml # Bowel Movements 1 Vital Signs Date Time Temp Pulse Resp B/P Pulse Ox O2 Delivery O2 Flow Rate FiO2 02/17/17 06:00 72 02/17/17 04:00 98.3 69 16 104/55 96 02/17/17 04:00 69 02/17/17 02:00 68 02/17/17 00:14 98.1 73 13 119/58 97 02/17/17 00:00 79 02/17/17 00:00 98.1 79 23 119/58 97 02/16/17 22:40 97.8 87 20 110/91 96 02/16/17 22:19 98.7 82 20 100/56 97 02/16/17 22:13 76 17 114/60 96 Room Air 02/16/17 22:07 98.6 79 18 120/55 96 Room Air 02/16/17 21:09 84 16 120/56 97 Room Air 02/16/17 20:00 97 02/16/17 19:13 77 18 115/54 97 Room Air 02/16/17 18:30 80 18 121/71 98 Room Air 02/16/17 16:30 18 97 Room Air 02/16/17 16:30 98 Room Air 02/16/17 16:30 85 18 115/65 98 Room Air 02/16/17 16:30 98.7 86 20 115/65 98 (Angelique Sharp) -: 02/17/17 0520 02/17/17 0520 Microbiology 02/16/17 Aerobic Blood Culture, Received Pending 02/16/17 Anaerobic Blood Culture, Received Pending 02/16/17 Aerobic Blood Culture, Received Pending 02/16/17 Anaerobic Blood Culture, Received Pending 02/16/17 Urine Culture, Received Pending Imaging Last Impressions Chest X-Ray 02/16/17 1636 Signed Impressions: Service Date/Time: January 17:04 - CONCLUSION: Hypoinflation with no acute cardiopulmonary process. Sarath Anthony MD Hand X-Ray 02/16/17 0000 Signed Impressions: Service Date/Time: January 17:06 - CONCLUSION: 1. Mildly comminuted and slightly displaced fracture through the proximal metadiaphysis of the first metacarpal. 2. Well-corticated accessory ossification or old avulsion injury of the ulnar styloid Sarath Anthony MD Abdomen/Pelvis CT 02/16/17 0000 Signed Impressions: Service Date/Time: January 17:08 - CONCLUSION: 1. Intermediate density collection within the right anterior lower abdominal wall measuring 10.2 x 8.0 cm consistent with possible subcutaneous hematoma. Clinical correlation is recommended. 2. Severe ureteropelvicaliectasis bilaterally with urinary bladder distension suggesting possible bladder outlet obstruction. 3. Calcified nonobstructing left renal calculi. 4. Degenerative changes and scoliosis of the thoracolumbar spine. 5. Partially calcified right adnexal mass measuring 3.6 cm which is unchanged compared to the previous examination. Rigo Iqbal MD Tubes & Lines: Gates (Angelique Sharp) Physical Exam General Appearance: Well Developed, Well Nourished, Comfortable (Angelique Sharp. 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 EXECUTIVE) Throat Throat Exam: Oral Mucosa [place] & Moist (Angelique Sharp) Pulmonary Resp Exam: Breath Sounds Equal, No Distress, Decreased Bases (Angelique Sharp BMay [facility]) Cardiology CV Exam: Regular, Normal Sinus Rhythm (Angelique SharpP) Gastrointestinal/Abdomen GI Exam: Non-Tender, Bowel Sounds Present (Angelique Sharp) Musculoskeletal MS Exam: Normal Tone, Unable to Ambulate (Angelique Sharp) Extremeties Extremities Exam: Pedal Pulses Palpable, Moderate Edema (Angelique Sharp) Neurologic Neuro Exam: Alert, Awake, Oriented, Speech Clear, Moving All Extremities ( Angelique SharpP) Psychiatric Psych Exam: Appropriate Responses (Angelique Sharp) Assessment/Plan Discussed Condition With: Patient Assessment Summary: SHELLEY/Acute Renal Failure, [place] Hyperparathyroid Electrolyte Assessment: Hyperkalemia, Hypocalcemia Problem List: (1) Acute on chronic kidney failure Plan: Likely has underlying diabetic nephropathy baseline creatinine from 2013 2.08; at discharge earlier this month cr 2.08 she came in with obstructive uropathy, gates was placed creatinine is slightly better she had hydronephrosis last admission, was evaluated by urology and was to follow up outpatient urology has been reconsulted she has metabolic acidosis, change fluids to contain sodium bicarbonate monitor renal function daily await urology evaluation (2) Hyperkalemia Plan: Due to diminished renal excretion started on bicarb gtt, given D50, insulin repeat K (3) Secondary hyperparathyroidism (of renal origin) Plan: restart calcitriol previously severely vit D deficient she has been given IV calcium gluconate (4) Closed fracture of first metacarpal bone of left hand Plan: non surgical management (5) Syncope Plan: work up per admitting team (Angelique Sharp) Plan patient was seen and examined. Renal function has improved slightly, hyperkalemia significantly better. Continue bicarbonate drip. Needs urology evaluation. No immediate need for dialysis. (Aneesh Rainey MD) Angelique Sharp Feb 17, 2017 09:53 Aneesh Rainey MD Feb 17, 2017 13:40
[2017-02-17] MEDS: CALCITRIOL 0.25 MCG CAP PO SCH (11:14)
--- NOTE | 2017-02-17 11:53 | HHI.PR ---
Subjective Subjective Notes hemoglobin improved with transfusion, abdominal wall appears stable, no dizziness, no vomiting Objective Vitals/I&O Vital Signs Date Time Temp Pulse Resp B/P Pulse Ox O2 Delivery O2 Flow Rate FiO2 02/17/17 06:00 72 02/17/17 04:00 98.3 16 104/55 96 02/16/17 22:13 Room Air Labs Laboratory Tests Test 02/16/17 02/16/17 02/16/17 02/16/17 17:00 17:40 18:36 20:19 White Blood Count 5.0 Red Blood Count 2.82 Hemoglobin 7.6 Hematocrit 23.4 Mean Corpuscular Volume 83.0 Mean Corpuscular Hemoglobin 27.0 Mean Corpuscular Hemoglobin 32.5 Concent Red Cell Distribution Width 15.6 Platelet Count 187 Mean Platelet Volume 9.4 Neutrophils (%) (Auto) 68.9 Lymphocytes (%) (Auto) 19.9 Monocytes (%) (Auto) 7.2 Eosinophils (%) (Auto) 3.8 Basophils (%) (Auto) 0.2 Neutrophils # (Auto) 3.5 Lymphocytes # (Auto) 1.0 Monocytes # (Auto) 0.4 Eosinophils # (Auto) 0.2 Basophils # (Auto) 0.0 CBC Comment DIFF FINAL Differential Comment Prothrombin Time 10.8 Prothromb Time International 1.0 Ratio Activated Partial 29.3 Thromboplast Time Sodium Level 135 Potassium Level 6.1 Chloride Level 106 Carbon Dioxide Level 16.7 Anion Gap 12 Blood Urea Nitrogen 67 Creatinine 9.50 Estimat Glomerular Filtration 4 Rate Random Glucose 69 Lactic Acid Level 0.6 Calcium Level 5.8 Protein Corrected Calcium 5.9 Total Bilirubin 0.2 Aspartate Amino Transf 13 (AST/SGOT) Alanine Aminotransferase 10 (ALT/SGPT) Alkaline Phosphatase 64 Total Creatine Kinase 79 Troponin I LESS THAN 0.02 Total Protein 6.9 Albumin 2.3 Ammonia 38 Blood Type A NEGATIVE Antibody Screen NEGATIVE Crossmatch Leukocyte-Reduced Red Blood Cells Blood Bank Comment Urine Color YELLOW Urine Turbidity HAZY Urine pH 5.0 Urine Specific [place] 1.012 Urine Protein TRACE Urine Glucose (UA) NEG Urine Ketones NEG Urine Occult Blood MOD Urine Nitrite NEG Urine Bilirubin NEG Urine Urobilinogen LESS THAN 2.0 Urine Leukocyte Esterase LARGE Urine RBC 35 Urine WBC 20 Urine Squamous Epithelial 1 Cells Urine Bacteria RARE Microscopic Urinalysis Comment CATH-CULTURE IND Test 02/16/17 02/16/17 02/17/17 22:51 23:58 05:20 Nasal Screen MRSA (PCR) POSITIVE Sodium Level 139 139 Potassium Level 5.5 5.5 Chloride Level 111 111 Carbon Dioxide Level 14.2 16.0 Anion Gap 14 12 Blood Urea Nitrogen 63 64 Creatinine 8.54 8.04 Estimat Glomerular Filtration 5 5 Rate Random Glucose 80 66 Calcium Level 6.1 6.3 Protein Corrected Calcium 6.3 6.7 Total Protein 6.6 6.2 White Blood Count 3.7 Red Blood Count 3.08 Hemoglobin 8.7 Hematocrit 25.7 Mean Corpuscular Volume 83.2 Mean Corpuscular Hemoglobin 28.1 Mean Corpuscular Hemoglobin 33.7 Concent Red Cell Distribution Width 15.4 Platelet Count 163 Mean Platelet Volume 9.4 Neutrophils (%) (Auto) 55.6 Lymphocytes (%) (Auto) 28.8 Monocytes (%) (Auto) 9.7 Eosinophils (%) (Auto) 4.6 Basophils (%) (Auto) 1.3 Neutrophils # (Auto) 2.0 Lymphocytes # (Auto) 1.1 Monocytes # (Auto) 0.4 Eosinophils # (Auto) 0.2 Basophils # (Auto) 0.0 CBC Comment DIFF FINAL Differential Comment Prothrombin Time 11.0 Prothromb Time International 1.0 Ratio Phosphorus Level 8.8 Magnesium Level 1.8 Total Bilirubin 0.4 Aspartate Amino Transf 11 (AST/SGOT) Alanine Aminotransferase 8 (ALT/SGPT) Alkaline Phosphatase 59 Albumin 2.0 Date/Time Procedure Status Source Growth 02/16/17 20:19 Urine Culture Received Urine Catheterized Urine Pending 02/16/17 17:15 Aerobic Blood Culture - Preliminary Resulted Blood Peripheral NO GROWTH IN 1 DAY 02/16/17 17:15 Anaerobic Blood Culture - Preliminary Resulted Blood Peripheral NO GROWTH IN 1 DAY Cardiovascular: Regular Abdomen: Other (incisions with fullness, right side scant drainage) A/P Assessment and Plan 51-year-old female with multiple medical issues, recent admission with gallstone ileus, presents with hypotension, anemia of blood loss and abdominal hematoma. renal failure PLAN Ok for diet continue to observe hematoma for now will follow peripherally if hh drops or hypotension will consider cta vs Eduardo David MD Feb 17, 2017 11:53
[2017-02-17 13:10] LABS: AUTOMATED NEUTROPHIL # 2.6 TH/MM3 (1.8-7.7); BASOPHIL # 0.1 TH/MM3 (0-0.2); BASOPHIL % 1.3 % (0.0-2.0); EOSINOPHIL # 0.2 TH/MM3 (0-0.4); EOSINOPHIL % 3.9 % (0.0-4.0); HEMATOCRIT 28.4 % (35.0-46.0); HEMO FLAGS DIFF FINAL; LYMPH % 22.2 % (9.0-44.0); LYMPHOCYTE # 0.9 TH/MM3 (1.0-4.8); MEAN CELL VOLUME 83.1 FL (80.0-100.0); MEAN CORPUSCULAR HEMOGLOBIN 27.3 PG (27.0-34.0); MEAN CORPUSCULAR HGB CONC 32.9 % (32.0-36.0); MONO % 6.8 % (0.0-8.0); NEUT % 65.8 % (16.0-70.0); PLATELET COUNT 166 TH/MM3 (150-450); RED BLOOD COUNT 3.42 MIL/MM3 (4.00-5.30); RED CELL DISTRIBUTION WIDTH 15.5 % (11.6-17.2); WHITE BLOOD COUNT 3.9 TH/MM3 (4.0-11.0)
[2017-02-17 13:42] LABS: BICARBONATE 15.5 MEQ/L (21.0-32.0); POTASSIUM 5.5 MEQ/L (3.5-5.1); TOTAL BILIRUBIN ADULT 0.3 MG/DL (0.2-1.0)
[2017-02-17] MEDS: SODIUM CHLORIDE 23.4% INJ 38.5 MEQ, SODIUM BICARBONATE 8.4% INJ 100 MEQ in WATER STERIL... IV SCH (13:54)
[2017-02-17] MEDS ORDERED: INSULIN HUMAN REGULAR 1,000 UNITS/10 ML VIAL IV PUSH ONE (14:15)
[2017-02-17] MEDS ORDERED: CALCIUM CHLORIDE INJ 2 GM in DEXTROSE 5% IN WATER 100ML INJ 100 ML IV ONE ×2 (14:15)
[2017-02-17] MEDS ORDERED: DEXTROSE 50% IN WATER 50 ML SYRINGE IV ONE (14:15)
[2017-02-17] MEDS ORDERED: SODIUM BICARBONATE 8.4% INJ 50 MEQ/50 ML SYR IV PUSH ONE (14:15)
[2017-02-17 18:32] LABS: ALKALINE PHOSPHATASE 59 U/L (45-117); ALT (GPT) 8 U/L (10-53); ANION GAP 11 MEQ/L (5-15); AST (GOT) 8 U/L (15-37); BICARBONATE 17.1 MEQ/L (21.0-32.0); BLOOD UREA NITROGEN 61 MG/DL (7-18); CHLORIDE 115 MEQ/L (98-107); GLOMERULAR FILTRATION RATE 6 ML/MIN (>89); POTASSIUM 5.2 MEQ/L (3.5-5.1); SODIUM (NA) 143 MEQ/L (136-145); TOTAL BILIRUBIN ADULT 0.3 MG/DL (0.2-1.0)
[2017-02-17] MEDS: ACETAMINOPHEN/HYDROcodone 325 MG/5 MG TAB PO PRN (23:04)
[2017-02-18] VITALS (11 sets, daily range): BP systolic 136–193; BP diastolic 64–80; PULSE 80–93; RESP 16–25; TEMP 98.1–99; O2SAT 96–100
[2017-02-18] MEDS: CHLORHEXIDINE GLUCONATE 2 % 1 PACK (2 CLOTHS) TOP SCH (04:00)
[2017-02-18 05:17] LABS: AUTOMATED NEUTROPHIL # 3.4 TH/MM3 (1.8-7.7); BASOPHIL # 0.1 TH/MM3 (0-0.2); BASOPHIL % 1.9 % (0.0-2.0); EOSINOPHIL # 0.2 TH/MM3 (0-0.4); HEMATOCRIT 26.3 % (35.0-46.0); HEMO FLAGS DIFF FINAL; LYMPH % 22.3 % (9.0-44.0); LYMPHOCYTE # 1.2 TH/MM3 (1.0-4.8); MEAN CELL VOLUME 83.6 FL (80.0-100.0); MEAN CORPUSCULAR HEMOGLOBIN 27.4 PG (27.0-34.0); MEAN CORPUSCULAR HGB CONC 32.7 % (32.0-36.0); MONO % 6.7 % (0.0-8.0); NEUT % 65.1 % (16.0-70.0); PLATELET COUNT 174 TH/MM3 (150-450); RED BLOOD COUNT 3.15 MIL/MM3 (4.00-5.30); RED CELL DISTRIBUTION WIDTH 15.5 % (11.6-17.2); WHITE BLOOD COUNT 5.2 TH/MM3 (4.0-11.0)
[2017-02-18 05:47] LABS: BICARBONATE 16.8 MEQ/L (21.0-32.0); CALCIUM-PROTEIN CORRECTED 7.7 MG/DL (8.5-10.1); POTASSIUM 5.3 MEQ/L (3.5-5.1); TOTAL BILIRUBIN ADULT 0.3 MG/DL (0.2-1.0)
[2017-02-18] MEDS: SODIUM CHLORIDE 23.4% INJ 38.5 MEQ, SODIUM BICARBONATE 8.4% INJ 100 MEQ in WATER STERIL... IV SCH ×3 (05:48→21:22)
[2017-02-18] MEDS ORDERED: SODIUM BICARBONATE 8.4% INJ 50 MEQ/50 ML SYR IV PUSH ONE (06:30)
[2017-02-18] MEDS ORDERED: CALCIUM GLUCONATE INJ 2 GM in SODIUM CHLORIDE 0.9% INJ 100 ML IV ONE (06:30)
[2017-02-18] MEDS: ACETAMINOPHEN/HYDROcodone 325 MG/5 MG TAB PO PRN ×2 (08:00→17:08)
[2017-02-18] MEDS: CALCITRIOL 0.25 MCG CAP PO SCH (08:00)
[2017-02-18] MEDS: FAMOTIDINE 20 MG/2 ML VIAL IV PUSH SCH ×2 (08:01→20:59)
[2017-02-18] MEDS: SODIUM CHLORIDE 0.9% FLUSH 10 ML FLUSH SCH ×2 (08:01→20:59)
[2017-02-18] MEDS: DOCUSATE SODIUM 100 MG CAP PO SCH ×2 (08:01→21:00)
--- NOTE | 2017-02-18 11:13 | EKG ---
Date Performed: 02/16/2017 Time Performed: 18:17:35 PTAGE: 51 years EKG: Sinus rhythm POSSIBLE ANTERIOR MYOCARDIAL INFARCTION ABNORMAL ECG NO PREVIOUS TRACING DOCTOR: Lyssa Leslie Interpretating Date/Time 02/18/2017 11:09:27
--- NOTE | 2017-02-18 11:25 | HHI.NPPN ---
Subjective Renal Failure: Chronic, Acute Review of Systems Gastrointestinal Gastrointestinal: Nausea & Vomiting Musculoskeletal MS: Pain/Stiffness Objective Data Data 02/17/17 02/18/17 19:00 07:00 Intake Total 2036 ml 1369 ml Output Total 950 ml 2150 ml Balance 1086 ml -781 ml Intake Oral 360 ml 250 ml IV Total 1676 ml 1119 ml Output Urine Total 950 ml 2150 ml # Bowel Movements 0 0 Vital Signs Date Time Temp Pulse Resp B/P Pulse Ox O2 Delivery O2 Flow Rate FiO2 02/18/17 08:00 99.0 85 16 161/73 98 02/18/17 06:00 81 02/18/17 04:00 80 02/18/17 04:00 98.5 80 16 164/72 100 02/18/17 02:00 83 02/18/17 00:00 98.1 87 16 167/74 97 02/18/17 00:00 87 02/17/17 22:00 87 02/17/17 20:00 82 02/17/17 20:00 97.3 82 16 121/57 97 02/17/17 16:00 98.4 85 18 142/61 97 02/17/17 12:00 84 02/17/17 12:00 98.0 84 19 123/60 96 -: 02/18/17 0337 02/18/17 0337 Tubes & Lines: Gates Physical Exam General Appearance: Well Developed, Well Nourished, Comfortable Throat Throat Exam: Oral Mucosa [place] & Moist Pulmonary Resp Exam: Breath Sounds Equal, No Distress, Decreased Bases Cardiology CV Exam: Regular, Normal Sinus Rhythm Gastrointestinal/Abdomen GI Exam: Non-Tender, Bowel Sounds Present Musculoskeletal MS Exam: Normal Tone, Unable to Ambulate Extremeties Extremities Exam: Pedal Pulses Palpable, Moderate Edema Neurologic Neuro Exam: Alert, Awake, Oriented, Speech Clear, Moving All Extremities Psychiatric Psych Exam: Appropriate Responses Assessment/Plan Discussed Condition With: Patient Assessment Summary: SHELLEY/Acute Renal Failure, [place] Hyperparathyroid Electrolyte Assessment: Hyperkalemia, Hypocalcemia Problem List: (1) Acute on chronic kidney failure Plan: Likely has underlying diabetic nephropathy baseline creatinine from 2013 2.08; at discharge earlier this month cr 2.08 she came in with obstructive uropathy, gates was placed creatinine is slightly better on bicarbonate drip Cr declining follow BMP (2) Hyperkalemia Plan: Due to diminished renal excretion started on bicarb gtt, given D50, insulin repeat K (3) Secondary hyperparathyroidism (of renal origin) Plan: restart calcitriol previously severely vit D deficient she has been given IV calcium gluconate start Vitamin D3 as well (4) Closed fracture of first metacarpal bone of left hand Plan: non surgical management (5) Syncope Plan: work up per admitting team Madison Avila MD Feb 18, 2017 11:25
[2017-02-18 12:41] LABS: ALKALINE PHOSPHATASE 63 U/L (45-117); ALT (GPT) 9 U/L (10-53); ANION GAP 7 MEQ/L (5-15); AST (GOT) 10 U/L (15-37); BICARBONATE 22.7 MEQ/L (21.0-32.0); BLOOD UREA NITROGEN 54 MG/DL (7-18); CHLORIDE 112 MEQ/L (98-107); GLOMERULAR FILTRATION RATE 8 ML/MIN (>89); POTASSIUM 4.9 MEQ/L (3.5-5.1); SODIUM (NA) 142 MEQ/L (136-145); TOTAL BILIRUBIN ADULT 0.4 MG/DL (0.2-1.0)
[2017-02-18] MEDS: LORazepam 2 MG/ML VIAL IV PRN ×2 (17:08→21:22)
[2017-02-18] MEDS: CHOLECALCIFEROL (VIT D3) 5000 UNIT CAP PO SCH (18:24)
[2017-02-18] MEDS ORDERED: GLUCAGON 1 MG/ML VIAL OTHER PRN (19:15)
[2017-02-18] MEDS ORDERED: DEXTROSE 50% IN WATER 50 ML VIAL(D50) IV PUSH PRN (19:15)
--- NOTE | 2017-02-18 19:18 | HHI.PR ---
Subjective Remarks Patient complains of pain swelling in RUE. Per RN - Dr. Ulloa called and said patient should be discharged with gates intact and followup with him in his office. UOP good, cr improved, K stable. Pt denies dyspnea. Objective Vitals Vital Signs Date Time Temp Pulse Resp B/P Pulse Ox O2 Delivery O2 Flow Rate FiO2 02/18/17 18:08 22 02/18/17 18:00 80 02/18/17 16:00 98.7 86 24 193/80 96 02/18/17 16:00 86 02/18/17 14:00 93 02/18/17 12:00 83 02/18/17 12:00 98.5 83 24 02/18/17 10:00 90 02/18/17 08:00 99.0 85 16 161/73 98 02/18/17 06:00 81 02/18/17 04:00 80 02/18/17 04:00 98.5 80 16 164/72 100 02/18/17 02:00 83 02/18/17 00:00 98.1 87 16 167/74 97 02/18/17 00:00 87 02/17/17 22:00 87 02/17/17 20:00 82 02/17/17 20:00 97.3 82 16 121/57 97 I/O 02/17/17 02/17/17 02/17/17 02/18/17 02/18/17 02/18/17 07:00 15:00 23:00 07:00 15:00 23:00 Intake Total 895 ml 2036 ml 638 ml 731 ml 1629 ml Output Total 1000 ml 950 ml 1200 ml 950 ml 105 ml Balance -105 ml 1086 ml -562 ml -219 ml 1524 ml Intake Oral 360 ml 250 ml 480 ml IV Total 895 ml 1676 ml 388 ml 731 ml 1149 ml Output Urine Total 1000 ml 950 ml 1200 ml 950 ml 105 ml # Bowel Movements 1 0 0 0 Result Diagram: 02/18/17 0337 02/18/17 1147 Objective Remarks GENERAL: Well-nourished, well-developed morbidly obese CF patient. SKIN: Warm and dry. HEAD: Normocephalic. EYES: No scleral icterus. No injection or drainage. NECK: Supple, trachea midline. No JVD or lymphadenopathy. CARDIOVASCULAR: Regular rate and rhythm without murmurs, gallops, or rubs. RESPIRATORY: Breath sounds equal and CTA bilaterally anterior lung [place]. No accessory muscle use. GASTROINTESTINAL: Abdomen soft, non-tender, nondistended. gates in place. EXTREMITIES: RUE swollen and mildly warm and TTP. trace edema legs and LUE. NEUROLOGICAL: Awake, alert, and oriented x 3. Non-focal. A/P Problem List: (1) Closed fracture of first metacarpal bone of left hand ICD Code: S62.202A Status: Acute (2) Dehydration ICD Code: E86.0 Status: Acute (3) Hyperkalemia ICD Code: E87.5 Status: Acute (4) Morbid obesity with BMI of 45.0-49.9, adult ICD Code: E66.01 Status: Acute (5) Acute on chronic kidney failure ICD Code: N17.9 Status: Resolved Assessment and Plan Acute renal failure - Due to bladder outlet obstruction - Ureteropelvicaliectasis bilaterally - Gates placed in the ED, with improving creat and good UO - IVF per nephrology - bicarb drip -Nephrology following, no need for dialysis Syncope while on toilet - likely due to hypotension (now resolved)- echo this month showed nml EF, no significant valve abnormality, cont tele Abdominal wall hematoma - right lower abdominal - measures 10.2 x 8 cm - Gen Surgery evaluation-conservative management - follow CBC S/p Laparoscopic stone removal on 01/31/[address] Bridges, pathology showed a huge gall stone 5 cm in it's broadest dimension. Anemia of acute blood loss - s/p 2 unit pRBC - Due to above - Monitor H&H - Transfuse for hemoglobin below 7. Bladder outlet obstruction - Gates in place - Urology consult - Dr. Ulloa recommends (via RN) that patient should be discharged with gates and followup with him in his office RUE swelling - check doppler to r/o DVT Mildly comminuted and slightly displaced fracture through the Left proximal metadiaphysis of the first metacarpal - Ortho consult - Dr. Kuo recommends nonoperative management with thumb spica splint Hypertension - blood pressure high today - -Start hydralazine PO 25 mg TID - Hold lisinopril due to hyperkalemia - Hydralazine when necessary Hyperkalemia - due to SHELLEY - hold ACEi, K nml today, recheck in a.m. DM type 2- will order accucheks with SSI 2' hperparathyroidism - cont cacitriol. Hypocalcemia with vitamin D deficiency - cont vitamin D3, calcium replacement, recheck Ca in a.m. DVT GI prophylaxis - Subcutaneous heparin-hold due to abdominal wall hematoma and continue Vee Sterling MD Feb 18, 2017 19:18
[2017-02-18] MEDS: hydrALAZINE HCL 25 MG TAB PO SCH (20:59)
[2017-02-18] MEDS: INSULIN ASPART SUPPLEMENTAL SCALE SQ SCH (21:00)
[2017-02-19] VITALS (7 sets, daily range): BP systolic 116–183; BP diastolic 69–80; PULSE 82–100; RESP 16–22; TEMP 98–98.4; O2SAT 22–95
[2017-02-19] MEDS: CHLORHEXIDINE GLUCONATE 2 % 1 PACK (2 CLOTHS) TOP SCH (03:23)
[2017-02-19] MEDS: ACETAMINOPHEN/HYDROcodone 325 MG/5 MG TAB PO PRN (03:24)
[2017-02-19] MEDS: cloNIDine HCL 0.1 MG TAB PO PRN (03:24)
[2017-02-19] MEDS: ONDANSETRON HCL 4 MG/2 ML VIAL IV PRN (04:33)
[2017-02-19] MEDS: MORPHINE SULFATE 4 MG/ML INJ IV PRN (04:33)
[2017-02-19] MEDS: hydrALAZINE HCL 25 MG TAB PO SCH ×4 (04:37→22:00)
[2017-02-19] MEDS: SODIUM CHLORIDE 23.4% INJ 38.5 MEQ, SODIUM BICARBONATE 8.4% INJ 100 MEQ in WATER STERIL... IV SCH ×2 (05:56→16:47)
[2017-02-19] MEDS: INSULIN ASPART SUPPLEMENTAL SCALE SQ SCH ×4 (06:31→20:31)
[2017-02-19 06:38] LABS: BICARBONATE 24.4 MEQ/L (21.0-32.0); POTASSIUM 4.7 MEQ/L (3.5-5.1)
[2017-02-19 06:55] LABS: CALCIUM-PROTEIN CORRECTED 7.6 MG/DL (8.5-10.1)
[2017-02-19 07:42] LABS: AUTOMATED NEUTROPHIL # 5.4 TH/MM3 (1.8-7.7); BASOPHIL # 0.1 TH/MM3 (0-0.2); BASOPHIL % 1.2 % (0.0-2.0); EOSINOPHIL # 0.2 TH/MM3 (0-0.4); EOSINOPHIL % 2.9 % (0.0-4.0); HEMATOCRIT 28.7 % (35.0-46.0); HEMO FLAGS DIFF FINAL; LYMPH % 14.4 % (9.0-44.0); MEAN CELL VOLUME 82.8 FL (80.0-100.0); MEAN CORPUSCULAR HEMOGLOBIN 26.9 PG (27.0-34.0); MEAN CORPUSCULAR HGB CONC 32.4 % (32.0-36.0); MONO % 6.5 % (0.0-8.0); PLATELET COUNT 192 TH/MM3 (150-450); RED BLOOD COUNT 3.47 MIL/MM3 (4.00-5.30); RED CELL DISTRIBUTION WIDTH 15.4 % (11.6-17.2); WHITE BLOOD COUNT 7.2 TH/MM3 (4.0-11.0)
[2017-02-19] MEDS: SODIUM CHLORIDE 0.9% FLUSH 10 ML FLUSH SCH ×2 (09:00→20:31)
[2017-02-19] MEDS: FAMOTIDINE 20 MG/2 ML VIAL IV PUSH SCH (09:32)
[2017-02-19] MEDS: DOCUSATE SODIUM 100 MG CAP PO SCH ×2 (09:32→20:31)
[2017-02-19] MEDS: LORazepam 2 MG/ML VIAL IV PRN (09:32)
[2017-02-19] MEDS: METOCLOPRAMIDE HCL 10 MG/2 ML VIAL IV PRN (09:32)
[2017-02-19] MEDS: CALCITRIOL 0.25 MCG CAP PO SCH (09:33)
[2017-02-19] MEDS: CHOLECALCIFEROL (VIT D3) 5000 UNIT CAP PO SCH (09:33)
--- NOTE | 2017-02-19 10:37 | HHI.NPPN ---
Subjective Renal Failure: Chronic, Acute Review of Systems Gastrointestinal Gastrointestinal: Nausea & Vomiting Musculoskeletal MS: Pain/Stiffness Objective Data Data 02/18/17 02/19/17 19:00 07:00 Intake Total 1629 ml 2423 ml Output Total 105 ml 1475 ml Balance 1524 ml 948 ml Intake Oral 480 ml 720 ml IV Total 1149 ml 1703 ml Output Urine Total 105 ml 1475 ml # Bowel Movements 0 0 Vital Signs Date Time Temp Pulse Resp B/P Pulse Ox O2 Delivery O2 Flow Rate FiO2 02/19/17 04:00 98.2 96 19 183/80 95 02/19/17 00:00 98.4 86 22 175/75 22 02/18/17 20:00 98.8 88 25 136/64 96 02/18/17 18:08 22 02/18/17 18:00 80 02/18/17 16:00 98.7 86 24 193/80 96 02/18/17 16:00 86 02/18/17 14:00 93 02/18/17 12:00 83 02/18/17 12:00 98.5 83 24 -: 02/19/17 0357 02/19/17 0357 Tubes & Lines: Gates Physical Exam General Appearance: Well Developed, Well Nourished, Comfortable Throat Throat Exam: Oral Mucosa [place] & Moist Pulmonary Resp Exam: Breath Sounds Equal, No Distress, Decreased Bases Cardiology CV Exam: Regular, Normal Sinus Rhythm Gastrointestinal/Abdomen GI Exam: Non-Tender, Bowel Sounds Present Musculoskeletal MS Exam: Normal Tone, Unable to Ambulate Extremeties Extremities Exam: Pedal Pulses Palpable, Moderate Edema Neurologic Neuro Exam: Alert, Awake, Oriented, Speech Clear, Moving All Extremities Psychiatric Psych Exam: Appropriate Responses Assessment/Plan Discussed Condition With: Patient Assessment Summary: SHELLEY/Acute Renal Failure, [place] Hyperparathyroid Electrolyte Assessment: Hyperkalemia, Hypocalcemia Problem List: (1) Acute on chronic kidney failure Plan: Likely has underlying diabetic nephropathy baseline creatinine from 2013 2.08; at discharge earlier this month cr 2.08 she came in with obstructive uropathy, gates was placed creatinine is slightly better on bicarbonate drip Cr declining 4.79 Today follow BMP (2) Hyperkalemia Plan: Due to diminished renal excretion started on bicarb gtt, given D50, insulin repeat K (3) Secondary hyperparathyroidism (of renal origin) Plan: restart calcitriol previously severely vit D deficient she has been given IV calcium gluconate start Vitamin D3 as well (4) Closed fracture of first metacarpal bone of left hand Plan: non surgical management (5) Syncope Plan: work up per admitting team Madison Avila MD Feb 19, 2017 10:37
--- NOTE | 2017-02-19 11:27 | RADRPT ---
EXAM DATE/TIME: 02/19/2017 10:25 [place] COMPARISON: No previous studies available for comparison. INDICATIONS : Right arm swelling. MEDICAL HISTORY : Gastroesophageal reflux disease. Renal calculi. Gastroparesis. Vision loss. Jarett ropathy. Head trauma. Syncope. Migraines. Hypertension. Asthma. Pneumonia. Arthritis. Osteoporosis. G out. Diabetes. Depression. Anxiety. Thyroid disease. Anemia. Mental retardation. MRSA. SURGICAL HISTORY : Tonsillectomy. Right foot surgery. Lithotripsy. Nephrectomy. ENCOUNTER: Initial ACUITY: 1 day PAIN SCORE: 4/10 LOCATION: Right arm. FINDINGS: There is spontaneous flow documented in the basilic, cephalic, axillary, and subclavian veins. The v essels are compressible and augmentation response is documented. The flow is phasic with respiration. Direction of flow in the jugular vein is caudal. There is nonocclusive thrombus identified within the distal right brachial vein and absent flow withi n the right radial vein. Flow is identified within the ulnar vein.. CONCLUSION: Nonocclusive thrombus identified in the distal right brachial vein and absent flow wi thin the right radial vein. Marybeth Wright MD on February 19, 2017 at 11:21 Board Certified Radiologist. This report was verified electronically.
[2017-02-19] MEDS: PANTOPRAZOLE SODIUM 40 MG VIAL IV PUSH SCH (14:56)
--- NOTE | 2017-02-19 17:52 | HHI.PR ---
Subjective Remarks Patient complains of mild pain in the left hand. Denies right arm pain. Denies dyspnea. Per nurse received Ativan IV and this has made her quite sleepy today. Patient thinks that she obtain the abdominal wall hematoma after she fell off the toilet. She had one episode of vomiting this morning and the nurse was concerned it might have been hematemesis however hemoglobin has increased. No further episodes of vomiting. Patient denies any abdominal pain. Objective Vitals Vital Signs Date Time Temp Pulse Resp B/P Pulse Ox O2 Delivery O2 Flow Rate FiO2 02/19/17 08:00 98.0 82 16 144/77 94 02/19/17 04:00 98.2 96 19 183/80 95 02/19/17 00:00 98.4 86 22 175/75 22 02/18/17 20:00 98.8 88 25 136/64 96 02/18/17 18:08 22 02/18/17 18:00 80 I/O 02/18/17 02/18/17 02/18/17 02/19/17 02/19/17 02/19/17 07:00 15:00 23:00 07:00 15:00 23:00 Intake Total 731 ml 1629 ml 1458 ml 965 ml 1118 ml Output Total 950 ml 105 ml 1000 ml 475 ml 800 ml Balance -219 ml 1524 ml 458 ml 490 ml 318 ml Intake Oral 480 ml 480 ml 240 ml 120 ml IV Total 731 ml 1149 ml 978 ml 725 ml 998 ml Output Urine Total 950 ml 105 ml 1000 ml 475 ml 800 ml # Bowel Movements 0 0 0 0 2 Result Diagram: 02/19/17 0357 02/19/17 035 Objective Remarks GENERAL: Well-nourished, well-developed morbidly obese CF patient. SKIN: Warm and dry. HEAD: Normocephalic. EYES: No scleral icterus. No injection or drainage. NECK: Supple, trachea midline. No JVD or lymphadenopathy. CARDIOVASCULAR: Regular rate and rhythm without murmurs, gallops, or rubs. RESPIRATORY: Breath sounds equal and CTA bilaterally anterior lung [place]. No accessory muscle use. GASTROINTESTINAL: Abdomen soft, non-tender, nondistended. gates in place. Right lower quadrant underneath the pannus has a hematoma which is dark purple with some tinges of green indicating stage IV ecchymosis EXTREMITIES: RUE swollen and mildly warm and TTP. trace edema legs and LUE. NEUROLOGICAL: Awake, alert, and oriented x 3. Non-focal. A/P Problem List: (1) Closed fracture of first metacarpal bone of left hand ICD Code: S62.202A Status: Acute (2) Dehydration ICD Code: E86.0 Status: Acute (3) Hyperkalemia ICD Code: E87.5 Status: Acute (4) Morbid obesity with BMI of 45.0-49.9, adult ICD Code: E66.01 Status: Acute (5) Acute on chronic kidney failure ICD Code: N17.9 Status: Resolved Assessment and Plan Acute renal failure - Due to bladder outlet obstruction - Ureteropelvicaliectasis bilaterally - Gates placed in the ED, with improving creat and good UO - IVF per nephrology - bicarb drip -Nephrology following, no need for dialysis Syncope while on toilet - likely due to hypotension (now resolved)- echo this month showed nml EF, no significant valve abnormality, cont tele Abdominal wall hematoma - right lower abdominal - measures 10.2 x 8 cm - Gen Surgery evaluation-conservative management - follow CBC -Discussed with Dr. Escobar today regarding the right arm DVT, he stated if the hematoma is older than 48 hours, okay to start anticoagulation and monitor H &H S/p Laparoscopic stone removal on 01/31/[address] Bridges, pathology showed a huge gall stone 5 cm in it's broadest dimension. Anemia of acute blood loss - s/p 2 unit pRBC - Due to above - Monitor H&H - Transfuse for hemoglobin below 7. Bladder outlet obstruction - Gates in place - Urology consult - Dr. Ulloa recommends (via RN) that patient should be discharged with gates and followup with him in his office -Right arm nonocclusive DVT in the distal right brachial vein - discussed with general surgery, see above. I will start heparin drip without any bolus. Monitor hematoma. Monitor hemoglobin. If hemoglobin stays stable for 24 hours , will plan to start Coumadin low and slow for treatment duration of 3 months. I did discuss this with the patient who is in agreement. Patient will need Coumadin teaching. Mildly comminuted and slightly displaced fracture through the Left proximal metadiaphysis of the first metacarpal - Ortho consult - Dr. Kuo recommends nonoperative management with thumb spica splint Hypertension -uncontrolled -Increase hydralazine to 50 mg by mouth 3 times a day - Hold lisinopril due to previous hyperkalemia and acute kidney injury - Hydralazine when necessary DM type 2-continue accucheks with SSI 2' hperparathyroidism - cont cacitriol. Hypocalcemia with vitamin D deficiency - cont vitamin D3, calcium replacement, recheck Ca in a.m. Vomiting 1. Nurse question coffee ground emesis. No recurrence. We'll need to monitor this closely. Continue Protonix 40 mg IV daily. Follow H&H. There is a complex medical patient, hold any transfer to the floor at this time. Vee Werner MD Feb 19, 2017 17:52
[2017-02-19 18:10] LABS: HEMATOCRIT 28.9 % (35.0-46.0); MEAN CELL VOLUME 83.9 FL (80.0-100.0); MEAN CORPUSCULAR HEMOGLOBIN 27.1 PG (27.0-34.0); MEAN CORPUSCULAR HGB CONC 32.3 % (32.0-36.0); PLATELET COUNT 178 TH/MM3 (150-450); RED BLOOD COUNT 3.44 MIL/MM3 (4.00-5.30); RED CELL DISTRIBUTION WIDTH 15.8 % (11.6-17.2); REVIEW FLAG FINAL; WHITE BLOOD COUNT 7.2 TH/MM3 (4.0-11.0)
[2017-02-19 18:20] LABS: APTT (PATIENT) 26.4 SEC (24.3-30.1); INTERNATIONAL NORMALIZED RATIO 1.1 RATIO; PROTHROMBIN TIME - PATIENT 11.7 SEC (9.8-11.6)
[2017-02-19] MEDS: HEPARIN-D5W INJ 250 ML IV SCH (18:41)
[2017-02-20] VITALS (12 sets, daily range): BP systolic 152–176; BP diastolic 65–76; PULSE 84–111; RESP 20–28; TEMP 97.9–98.8; O2SAT 94–96
[2017-02-20] MEDS: METOCLOPRAMIDE HCL 10 MG/2 ML VIAL IV PRN (00:08)
[2017-02-20] MEDS: LORazepam 0.5 MG TAB PO PRN (00:08)
[2017-02-20] MEDS: SODIUM CHLORIDE 23.4% INJ 38.5 MEQ, SODIUM BICARBONATE 8.4% INJ 100 MEQ in WATER STERIL... IV SCH (00:49)
[2017-02-20 01:12] LABS: APTT (PATIENT) 51.1 SEC (24.3-30.1)
[2017-02-20] MEDS: cloNIDine HCL 0.1 MG TAB PO PRN ×2 (02:03→23:31)
[2017-02-20] MEDS: CHLORHEXIDINE GLUCONATE 2 % 1 PACK (2 CLOTHS) TOP SCH (04:00)
[2017-02-20] MEDS: hydrALAZINE HCL 25 MG TAB PO SCH ×3 (04:54→21:24)
[2017-02-20] MEDS: HEPARIN-D5W INJ 250 ML IV SCH ×2 (04:57→18:43)
[2017-02-20] MEDS: INSULIN ASPART SUPPLEMENTAL SCALE SQ SCH ×4 (05:58→21:00)
[2017-02-20 07:13] LABS: AUTOMATED NEUTROPHIL # 9.4 TH/MM3 (1.8-7.7); BASOPHIL # 0.1 TH/MM3 (0-0.2); BASOPHIL % 1.3 % (0.0-2.0); EOSINOPHIL % 0.3 % (0.0-4.0); HEMATOCRIT 26.2 % (35.0-46.0); HEMO FLAGS DIFF FINAL; LYMPH % 9.8 % (9.0-44.0); LYMPHOCYTE # 1.1 TH/MM3 (1.0-4.8); MEAN CELL VOLUME 82.8 FL (80.0-100.0); MEAN CORPUSCULAR HEMOGLOBIN 27.3 PG (27.0-34.0); MEAN CORPUSCULAR HGB CONC 32.9 % (32.0-36.0); MONO % 3.8 % (0.0-8.0); NEUT % 84.8 % (16.0-70.0); PLATELET COUNT 178 TH/MM3 (150-450); RED BLOOD COUNT 3.16 MIL/MM3 (4.00-5.30); RED CELL DISTRIBUTION WIDTH 15.2 % (11.6-17.2); WHITE BLOOD COUNT 11.1 TH/MM3 (4.0-11.0)
[2017-02-20 07:55] LABS: BICARBONATE 26.3 MEQ/L (21.0-32.0); POTASSIUM 4.4 MEQ/L (3.5-5.1)
[2017-02-20 08:15] LABS: CALCIUM-PROTEIN CORRECTED 7.2 MG/DL (8.5-10.1)
[2017-02-20] MEDS: CALCITRIOL 0.25 MCG CAP PO SCH (09:00)
[2017-02-20] MEDS: SODIUM CHLORIDE 0.9% FLUSH 10 ML FLUSH SCH ×2 (09:00→21:00)
[2017-02-20 09:28] LABS: APTT (PATIENT) 68.1 SEC (24.3-30.1)
[2017-02-20] MEDS: DOCUSATE SODIUM 100 MG CAP PO SCH ×2 (09:40→21:00)
[2017-02-20] MEDS: PANTOPRAZOLE SODIUM 40 MG VIAL IV PUSH SCH (09:40)
[2017-02-20] MEDS: CHOLECALCIFEROL (VIT D3) 5000 UNIT CAP PO SCH (09:40)
--- NOTE | 2017-02-20 09:57 | HHI.NPPN ---
Subjective Renal Failure: Chronic, Acute Interval History Awake in bed. Renal function is better. On Heparin gtt for DVT. (Angelique Sharp) Review of Systems Gastrointestinal Gastrointestinal: Nausea & Vomiting (Angelique Sharp) Musculoskeletal MS: Pain/Stiffness (Angelique Sharp) Objective Data Data 02/19/17 02/20/17 19:00 07:00 Intake Total 1118 ml 2269 ml Output Total 800 ml 1300 ml Balance 318 ml 969 ml Intake Oral 120 ml 240 ml IV Total 998 ml 2029 ml Output Urine Total 800 ml 1300 ml # Bowel Movements 2 0 Vital Signs Date Time Temp Pulse Resp B/P Pulse Ox O2 Delivery O2 Flow Rate FiO2 02/20/17 06:00 106 02/20/17 04:00 110 02/20/17 04:00 98.1 110 23 170/72 96 02/20/17 02:00 111 02/20/17 00:00 98.4 105 28 175/75 95 02/20/17 00:00 99 02/19/17 22:00 99 02/19/17 20:00 98.0 100 20 116/69 93 02/19/17 20:00 100 02/19/17 16:00 98.0 82 16 144/77 94 02/19/17 12:00 98.0 82 16 144/77 94 (Angelique Sharp) -: 02/20/17 0605 02/20/17 0605 Imaging Last Impressions Upper Extremity Ultrasound 02/19/17 0000 Signed Impressions: Service Date/Time: Sunday, February 19, 2017 10:25 - CONCLUSION: Nonocclusive thrombus identified in the distal right brachial vein and absent flow within the right radial vein. Marybeth Wright MD Hand X-Ray 02/17/17 0000 Signed Impressions: Service Date/Time: Friday, February 17, 2017 08:12 - CONCLUSION: Stable fracture through the proximal first metatarsal. Kevin Brooke MD Chest X-Ray 02/16/17 1636 Signed Impressions: Service Date/Time: January 17:04 - CONCLUSION: Hypoinflation with no acute cardiopulmonary process. Sarath Anthony MD Abdomen/Pelvis CT 02/16/17 0000 Signed Impressions: Service Date/Time: January 17:08 - CONCLUSION: 1. Intermediate density collection within the right anterior lower abdominal wall measuring 10.2 x 8.0 cm consistent with possible subcutaneous hematoma. Clinical correlation is recommended. 2. Severe ureteropelvicaliectasis bilaterally with urinary bladder distension suggesting possible bladder outlet obstruction. 3. Calcified nonobstructing left renal calculi. 4. Degenerative changes and scoliosis of the thoracolumbar spine. 5. Partially calcified right adnexal mass measuring 3.6 cm which is unchanged compared to the previous examination. Rigo Iqbal MD Tubes & Lines: Gates Drip Comment heparin (Aron,Angelique B. [employer]) Physical Exam General Appearance: Well Developed, Well Nourished, No Acute Distress, Comfortable, Sleeping (Aron,Angelique B. [employer]) Throat Throat Exam: Oral Mucosa [place] & Moist (Aron,Angelique B. [employer]) Pulmonary Resp Exam: Clear Bilaterally, Breath Sounds Equal, No Distress, Decreased Bases (AronAngelique B. [employer]) Cardiology CV Exam: Regular, Normal Sinus Rhythm (AronAngelique B. [employer]) Gastrointestinal/Abdomen GI Exam: Non-Tender, Bowel Sounds Present (Aron,Angelique B. [employer]) Musculoskeletal MS Exam: Normal Tone, Unable to Ambulate (Aron,Angelique B. [employer]) Integumentary Skin Exam: Warm, Dry (Aron,Angelique B. [employer]) Extremeties Extremities Exam: Pedal Pulses Palpable, Moderate Edema Extremeties Remarks right arm edema (Aron,Angelique B. [employer]) Neurologic Neuro Exam: Alert, Awake, Oriented, Speech Clear, Moving All Extremities ( Aron,Angelique B. [employer]) Psychiatric Psych Exam: Appropriate Responses (AronAngelique B. [employer]) VTE Prophylaxis Meds: Heparin (Aron,Angelique B. [employer]) Assessment/Plan Discussed Condition With: Patient Assessment Summary: SHELLEY/Acute Renal Failure, [place] Hyperparathyroid Electrolyte Assessment: Hyperkalemia, Hypocalcemia Problem List: (1) Acute on chronic kidney failure Plan: Likely has underlying diabetic nephropathy baseline creatinine from 2014 2.08; at discharge earlier this month cr 2.08 she came in with obstructive uropathy, gates was placed good urine output, renal function is better to follow up with urology after discharge, to be d/c with gates stop bicarb drip, tolerating oral fluids avoid nephrotoxins renal panel in am (2) Hyperkalemia Plan: Due to diminished renal excretion corrected (3) Secondary hyperparathyroidism (of renal origin) Plan: on calcitriol severely vit D deficient she has been given IV calcium gluconate start Vitamin D3 as well (4) Closed fracture of first metacarpal bone of left hand Plan: non surgical management (5) Syncope Plan: work up per admitting team (6) DVT (deep venous thrombosis) Plan: on heparin, to be started on coumadin x 3 months (Angelique Sharp) Plan patient was seen and examined. Renal function has improved. Stop IVF, to be discharged with Gates. (Aneesh Rainey MD) Angelique Sharp Feb 20, 2017 09:57 Aneesh Rainey MD Feb 20, 2017 10:03
--- NOTE | 2017-02-20 13:45 | HHI.PR ---
Subjective Remarks Follow-up for multiple medical condition seen in the assessment and plan. Patient had no complaints. Patient stated that she was not aware of her hematoma. Deny any emesis or any bloody stools or vomit. Nurse is at the bedside he has no complaints too. No acute events overnight. Objective Vitals Vital Signs Date Time Temp Pulse Resp B/P Pulse Ox O2 Delivery O2 Flow Rate FiO2 02/20/17 12:00 90 02/20/17 10:00 90 02/20/17 08:00 91 02/20/17 08:00 98.8 98 22 167/69 96 02/20/17 06:00 106 02/20/17 04:00 110 02/20/17 04:00 98.1 110 23 170/72 96 02/20/17 02:00 111 02/20/17 00:00 98.4 105 28 175/75 95 02/20/17 00:00 99 02/19/17 22:00 99 02/19/17 20:00 98.0 100 20 116/69 93 02/19/17 20:00 100 02/19/17 16:00 98.0 82 16 144/77 94 I/O 02/19/17 02/19/17 02/19/17 02/20/17 02/20/17 02/20/17 07:00 15:00 23:00 07:00 15:00 23:00 Intake Total 965 ml 1118 ml 975 ml 1294 ml Output Total 475 ml 800 ml 700 ml 600 ml Balance 490 ml 318 ml 275 ml 694 ml Intake Oral 240 ml 120 ml 240 ml IV Total 725 ml 998 ml 975 ml 1054 ml Output Urine Total 475 ml 800 ml 700 ml 600 ml # Bowel Movements 0 2 0 0 Result Diagram: 02/20/1760402/20/17604 Objective Remarks GENERAL: in NAD SKIN: Ecchymosis on the left side the abdomen. Per nurse and patient it has not worsened. HEAD: Normocephalic. EYES: No scleral icterus. No injection or drainage. NECK: Supple, trachea midline. No JVD or lymphadenopathy. CARDIOVASCULAR: Regular rate and rhythm without murmurs, gallops, or rubs. RESPIRATORY: Breath sounds equal bilaterally. No accessory muscle use. GASTROINTESTINAL: Abdomen soft, non-tender, nondistended. Medications and IVs Current Medications Sodium Chloride 2 ml 2 ml UNSCH PRN IVF FLUSH AFTER USING IV ACCESS; Start at 16:45; Stop 02/16/17 at 19:05; Status DC Sodium Chloride 1,000 ml @ 1,000 mls/hr Q1H IV Last administered on 02/16/17 18:00; Start 02/16/17 at 16:36; Stop 02/16/17 at 17:35; Status DC Sodium Chloride 1,000 ml @ 999 mls/hr BOLUS ONCE IV Last administered on 02/16 20:25; Start 02/16/17 at 18:15; Stop 02/16/17 at 19:15; Status DC Sodium Chloride (NS 250 ml Inj) 250 ml @ 15 mls/hr ONCE ONCE IV Last administered on 02/16/17 21:56; Start 02/16/17 at 18:15; Stop 02/17/17 at 10:54 ; Status DC Calcium Gluconate (Calcium Gluconate Inj) 1 gm ONCE ONCE IV PUSH Last administered on 02/16/17 18:58; Start 02/16/17 at 18:15; Stop 02/16/17 at 18:16 ; Status DC Calcium Gluconate (Calcium Gluconate Inj) 1 gm ONCE ONCE IV PUSH Last administered on 02/16/17 19:02; Start 02/16/17 at 18:15; Stop 02/16/17 at 18:16 ; Status DC Insulin Human Regular (NovoLIN R INJ) 10 units ONCE ONCE IVP Last administered on 02/16/17 20:25; Start 02/16/17 at 18:15; Stop 02/16/17 at 18:16 ; Status DC Dextrose (D50w (Vial) Inj) 50 ml ONCE ONCE IV PUSH Last administered on 20:25; Start 02/16/17 at 18:15; Stop 02/16/17 at 18:16; Status DC Sodium Bicarbonate (Sodium Bicarbonate 8.4% Inj) 50 meq ONCE ONCE IV PUSH Last administered on 02/16/17 20:26; Start 02/16/17 at 18:15; Stop 02/16/17 at 18:16; Status DC Midazolam HCl 1 mg 1 mg ONCE ONCE IV PUSH ; Start 02/16/17 at 18:45; Stop 02/16 at 18:46; Status DC Sodium Chloride (NS 1000 ml Inj) 1,000 ml @ 150 mls/hr Q6H40M IV Last administered on 02/17/17 02:56; Start 02/16/17 at 18:56; Stop 02/17/17 at 09:51 ; Status DC Sodium Chloride (NS Flush) 2 ml UNSCH PRN .XX FLUSH AFTER USING IV ACCESS; Start 02/16/17 at 19:00 Sodium Chloride (NS Flush) 2 ml BID .XX Last administered on 02/16/17 21:22; Start 02/16/17 at 21:00 Acetaminophen (Tylenol) 650 mg Q6H PRN PO FEVER >101F Last administered on 02/20 02:03; Start 02/16/17 at 19:00 Morphine Sulfate (Morphine Inj) 2 mg Q2H PRN IV PAIN SCALE 6 TO 10 Last administered on 02/19/17 04:33; Start 02/16/17 at 19:00 Famotidine (Pepcid Inj) 10 mg Q12HR IV PUSH Last administered on 02/19/17 09: 32; Start 02/16/17 at 21:00; Stop 02/19/17 at 10:33; Status DC Lorazepam (Ativan Inj) 1 mg Q4H PRN IV Agitation/Sedation Last administered on 02/19/17 09:32; Start 02/16/17 at 19:00; Stop 02/19/17 at 17:53; Status DC Ondansetron HCl (Zofran Inj) 4 mg Q6H PRN IV NAUSEA OR VOMITING Last administered on 02/19/17 04:33; Start 02/16/17 at 19:00 Metoclopramide HCl (Reglan Inj) 5 mg Q6H PRN IV NAUSEA OR VOMITING Last administered on 02/20/17 00:08; Start 02/16/17 at 19:00 Docusate Sodium (Colace) 100 mg BID PO Last administered on 02/20/17 09:40; Start 02/16/17 at 21:00 Zolpidem Tartrate (Ambien) 5 mg HS PRN PO INSOMNIA; Start 02/16/17 at 19:00 Albuterol/ Ipratropium (Duoneb Neb) 1 ampule Q2HR NEB PRN INH WHEEZING; Start 02/16/17 at 19:00 Heparin Sodium (Porcine) (Heparin Inj) 5,000 units Q8H SQ Last administered on 02/17/17 05:51; Start 02/16/17 at 22:00; Stop 02/19/17 at 20:52; Status DC Miscellaneous Information 1 Q361D XX ; Start 02/16/17 at 19:00 Chlorhexidine Gluconate (Chlorhexidine 2% Cloth) 3 pack Taper DAILY@04 TOP Last administered on 02/20/17 04:00; Start 02/17/17 at 04:00; Stop 02/13/18 at 03:59 Chlorhexidine Gluconate (Chlorhexidine 2% Cloth) 3 pack UNSCH PRN TOP HYGIENIC CARE; Start 02/16/17 at 19:00 Acetaminophen/ Hydrocodone Bitart 1 tab 1 tab Q6H PRN PO PAIN 1-10 Last administered on 02/19/17 03:24; Start 02/16/17 at 20:00 Calcium Gluconate 2 gm/Sodium Chloride 120 ml @ 60 mls/hr ONCE ONCE IV Last administered on 02/17/17 03:03; Start 02/17/17 at 03:00; Stop 02/17/17 at 04:59 ; Status DC Calcium Gluconate 2 gm/Sodium Chloride 120 ml @ 120 mls/hr ONCE ONCE IV Last administered on 02/17/17 08:50; Start 02/17/17 at 06:45; Stop 02/17/17 at 07:44 ; Status DC Sodium Chloride 1,000 ml @ 999 mls/hr BOLUS ONCE IV Last administered on 02/17 07:53; Start 02/17/17 at 07:15; Stop 02/17/17 at 08:15; Status DC Sodium Chloride/ Sodium Bicarbonate/ Sterile Water (Sodium Chloride 23.4% Inj/ Sodium Bicarbonate 8.4% Inj/Sterile Water For Inj) 1,109.625 ml @ 125 mls/hr Q8H53M IV Last administered on 02/20/17 00:49; Start 02/17/17 at 11:00; Stop 02/20/17 at 08:50; Status DC Dextrose (D50w (Vial) Inj) 50 ml STK-MED ONCE .ROUTE ; Start 02/17/17 at 09:37; Stop 02/17/17 at 09:38; Status DC Calcitriol (Rocaltrol) 0.5 mcg DAILY PO Last administered on 02/19/17 09:33; Start 02/17/17 at 10:00 Sodium Bicarbonate (Sodium Bicarbonate 8.4% Inj) 100 meq ONCE ONCE IV PUSH Last administered on 02/17/17 14:15; Start 02/17/17 at 14:15; Stop 02/17/17 at 14:16; Status DC Insulin Human Regular (NovoLIN R INJ) 7 units ONCE ONCE IV PUSH Last administered on 02/17/17 14:15; Start 02/17/17 at 14:15; Stop 02/17/17 at 14:16 ; Status DC Dextrose 25 ml 25 ml ONCE ONCE IV Last administered on 02/17/17 14:15; Start 02/17/17 at 14:15; Stop 02/17/17 at 14:16; Status DC Calcium Chloride 2 gm/Dextrose 120 ml @ 120 mls/hr ONCE ONCE IV Last administered on 02/17/17 14:15; Start 02/17/17 at 14:15; Stop 02/17/17 at 15:14 ; Status DC Calcium Gluconate/ Sodium Chloride (Calcium Gluconate Inj/NS Inj) 120 ml @ 120 mls/hr ONCE ONCE IV Last administered on 02/18/17 09:56; Start 02/18/17 at 06 :30; Stop 02/18/17 at 07:29; Status DC Sodium Bicarbonate (Sodium Bicarbonate 8.4% Inj) 50 meq ONCE ONCE IV PUSH Last administered on 02/18/17 06:50; Start 02/18/17 at 06:30; Stop 02/18/17 at 06:39; Status DC Cholecalciferol (Vitamin D3) 5,000 units DAILY PO Last administered on 09:40; Start 02/18/17 at 13:00 Dextrose (D50w (Vial) Inj) 25 ml UNSCH PRN IV PUSH HYPOGLYCEMIA-SEE COMMENTS; Start 02/18/17 at 19:15 Glucagon (Glucagon Inj) 1 mg UNSCH PRN OTHER HYPOGLYCEMIA-SEE COMMENTS; Start 02/18/17 at 19:15 Insulin Aspart (NovoLOG SUPPLEMENTAL SCALE) 1 ACHS SLIDING SCALE SQ ; Start at 21:00 Hydralazine HCl (Apresoline) 25 mg Q8HR PO Last administered on 02/19/17 20:31 ; Start 02/18/17 at 22:00; Stop 02/19/17 at 20:52; Status DC Clonidine (Catapres) 0.1 mg Q6H PRN PO SYS BP GREATER THAN 160 MMHG Last administered on 02/20/17 02:03; Start 02/18/17 at 19:30 Pantoprazole Sodium 40 mg 40 mg DAILY IV PUSH Last administered on 02/20/17 09 :40; Start 02/19/17 at 10:00 Heparin Sodium/ Dextrose (Heparin-D5W Inj) 250 ml @ 0 mls/hr TITRATE IV Last administered on 02/20/17 04:57; Start 02/19/17 at 17:30 Lorazepam (Ativan) 0.5 mg Q8H PRN PO anxiety Last administered on 02/20/17 00: 08; Start 02/19/17 at 17:45 Hydralazine HCl (Apresoline) 50 mg Q8HR PO Last administered on 02/20/17 04:54 ; Start 02/19/17 at 22:00 A/P Problem List: (1) Closed fracture of first metacarpal bone of left hand ICD Code: S62.202A Status: Acute (2) Dehydration ICD Code: E86.0 Status: Acute (3) Hyperkalemia ICD Code: E87.5 Status: Acute (4) Morbid obesity with BMI of 45.0-49.9, adult ICD Code: E66.01 Status: Acute (5) Acute on chronic kidney failure ICD Code: N17.9 Status: Resolved Assessment and Plan Acute renal failure - Due to bladder outlet obstruction - Ureteropelvicaliectasis bilaterally - Gates placed in the ED, with improving creat and good UO - IVF per nephrology - bicarb drip -Nephrology following, no need for dialysis -Per urologist keep Gates in. Syncope while on toilet - likely due to hypotension (now resolved) -echo this month showed nml EF, no significant valve abnormality, cont tele Abdominal wall hematoma - right lower abdominal - measures 10.2 x 8 cm - Gen Surgery evaluation-conservative management -Hemoglobin decreased today. But I did not note any hematoma. I did note a ecchymosis on the left side the abdomen. -Continue to monitor. S/p Laparoscopic stone removal on 01/31/[address] Bridges, pathology showed a huge gall stone 5 cm in it's broadest dimension. Anemia of acute blood loss - s/p 2 unit pRBC - Due to above -Hemoglobin did trend down today will continue to monitor but hematoma per nurse and patient was not impressive. We'll continue to monitor and if he continues to trend down we'll need to hold the heparin drip. - Monitor H&H - Transfuse for hemoglobin below 7. Bladder outlet obstruction - Gates in place - Urology consult - Dr. Ulloa recommends (via RN) that patient should be discharged with gates and followup with him in his office Right arm nonocclusive DVT in the distal right brachial vein -Patient cleared by general surgery to start anticoagulation. Per patient currently on a heparin drip. -See treatment as above. Once she stabilizes will transition to Coumadin. Mildly comminuted and slightly displaced fracture through the Left proximal metadiaphysis of the first metacarpal - Ortho consult - Dr. Kuo recommends nonoperative management with thumb spica splint Hypertension -uncontrolled -on hydralazine to 50 mg by mouth 3 times a day - Hold lisinopril due to previous hyperkalemia and acute kidney injury - Hydralazine when necessary DM type 2 -continue accucheks with SSI Secondary hyperparathyroidism - cont cacitriol. Hypocalcemia with vitamin D deficiency - cont vitamin D3, calcium replacement, recheck Ca in a.m. Emesis -Questionable coffee ground found to days ago. When I asked nurse he stated that he is not aware of this. Per patient and nurse patient did not have any episode. -Continue Protonix. DVT prophylaxis -On heparin Discharge Planning Patient to be transferred to med/surg. She continues to require hospitalization. We will need to monitor hemoglobin due to hematoma and patient being on anticoagulation. Jen Rosado MD Feb 20, 2017 13:45
--- NOTE | 2017-02-20 14:23 | HHI.PR ---
Subjective Subjective Notes Resting in bed Doing well with diet Pain controlled Gets out of bed to C Objective Vitals/I&O Vital Signs Date Time Temp Pulse Resp B/P Pulse Ox O2 Delivery O2 Flow Rate FiO2 02/20/17 14:00 90 02/20/17 12:00 98.6 22 152/65 96 02/16/17 22:13 Room Air Labs Laboratory Tests Test 02/19/17 02/20/17 02/20/17 02/20/17 18:04 00:44 06:05 09:00 White Blood Count 7.2 11.1 Red Blood Count 3.44 3.16 Hemoglobin 9.3 8.6 Hematocrit 28.9 26.2 Mean Corpuscular Volume 83.9 82.8 Mean Corpuscular Hemoglobin 27.1 27.3 Mean Corpuscular Hemoglobin 32.3 32.9 Concent Red Cell Distribution Width 15.8 15.2 Platelet Count 178 178 Mean Platelet Volume 9.1 10.5 Prothrombin Time 11.7 Prothromb Time International 1.1 Ratio Activated Partial 26.4 51.1 68.1 Thromboplast Time Neutrophils (%) (Auto) 84.8 Lymphocytes (%) (Auto) 9.8 Monocytes (%) (Auto) 3.8 Eosinophils (%) (Auto) 0.3 Basophils (%) (Auto) 1.3 Neutrophils # (Auto) 9.4 Lymphocytes # (Auto) 1.1 Monocytes # (Auto) 0.4 Eosinophils # (Auto) 0.0 Basophils # (Auto) 0.1 CBC Comment DIFF FINAL Differential Comment Sodium Level 144 Potassium Level 4.4 Chloride Level 107 Carbon Dioxide Level 26.3 Anion Gap 11 Blood Urea Nitrogen 42 Creatinine 3.73 Estimat Glomerular Filtration 13 Rate Random Glucose 84 Calcium Level 6.9 Protein Corrected Calcium 7.2 Total Protein 6.5 Date/Time Procedure Status Source Growth 02/16/17 20:19 Urine Culture - Final Complete Urine Catheterized Urine NO GROWTH IN 48 HOURS. 02/16/17 17:15 Aerobic Blood Culture - Preliminary Resulted Blood Peripheral NO GROWTH IN 4 DAYS 02/16/17 17:15 Anaerobic Blood Culture - Preliminary Resulted Blood Peripheral NO GROWTH IN 4 DAYS Cardiovascular: Regular Lungs: Clear Abdomen: Other (obese abdomen; soft; non tender; lap sites healing ) Extremities: No edema A/P Assessment and Plan 51 year old female s/p dx lap for GS ileus; re-admitted with syncopal episode and anemia -Tolerating diet -OOB with assistance -Monitor WBCs -No acute GS issues at this time Attending Statement pt has not attended office f/u abd hematoma stable non operative mgnt patient seen and discussed with patient at bedside Attestation The exam, history, and the medical decision-making described in the above note were completed with the assistance of the mid-level provider. I reviewed and agree with the findings presented. I attest that I had a [id number] encounter with the patient on the same day, and personally performed and documented my assessment and findings in the medical record. Lashawn Crowe Feb 20, 2017 14:23 Eduardo Bridges MD Mar 11, 2017 14:40
[2017-02-20] MEDS: ONDANSETRON HCL 4 MG/2 ML VIAL IV PRN (22:44)
[2017-02-21] VITALS (10 sets, daily range): BP systolic 146–194; BP diastolic 64–79; PULSE 75–93; RESP 17–32; TEMP 97.8–98.6; O2SAT 95–98
[2017-02-21] MEDS ORDERED: hydrALAZINE HCL 20 MG/ML VIAL IV PUSH ONE (02:45)
[2017-02-21] MEDS: CHLORHEXIDINE GLUCONATE 2 % 1 PACK (2 CLOTHS) TOP SCH (04:00)
[2017-02-21 05:48] LABS: APTT (PATIENT) 37.8 SEC (24.3-30.1)
[2017-02-21 05:58] LABS: BICARBONATE 22.2 MEQ/L (21.0-32.0); POTASSIUM 4.4 MEQ/L (3.5-5.1)
[2017-02-21] MEDS: hydrALAZINE HCL 25 MG TAB PO SCH ×3 (05:59→22:06)
[2017-02-21] MEDS: INSULIN ASPART SUPPLEMENTAL SCALE SQ SCH ×4 (06:17→22:07)
[2017-02-21 06:38] LABS: CALCIUM-PROTEIN CORRECTED 7.3 MG/DL (8.5-10.1)
[2017-02-21 07:14] LABS: HEMATOCRIT 26.8 % (35.0-46.0); MEAN CELL VOLUME 81.7 FL (80.0-100.0); MEAN CORPUSCULAR HEMOGLOBIN 27.2 PG (27.0-34.0); MEAN CORPUSCULAR HGB CONC 33.3 % (32.0-36.0); PLATELET COUNT 133 TH/MM3 (150-450); RED BLOOD COUNT 3.28 MIL/MM3 (4.00-5.30); RED CELL DISTRIBUTION WIDTH 15.7 % (11.6-17.2); REVIEW FLAG FINAL; WHITE BLOOD COUNT 8.2 TH/MM3 (4.0-11.0)
[2017-02-21] MEDS: PANTOPRAZOLE SODIUM 40 MG VIAL IV PUSH SCH (08:57)
[2017-02-21] MEDS: CALCITRIOL 0.25 MCG CAP PO SCH (08:58)
[2017-02-21] MEDS: CHOLECALCIFEROL (VIT D3) 5000 UNIT CAP PO SCH ×2 (08:58→14:45)
[2017-02-21] MEDS: SODIUM CHLORIDE 0.9% FLUSH 10 ML FLUSH SCH ×2 (09:00→21:00)
[2017-02-21] MEDS: DOCUSATE SODIUM 100 MG CAP PO SCH ×2 (09:00→22:06)
[2017-02-21] MEDS ORDERED: CALCIUM GLUCONATE INJ 1 GM in SODIUM CHLORIDE 0.9% INJ 100 ML IV ONE (10:00)
--- NOTE | 2017-02-21 10:09 | HHI.NPPN ---
Subjective Renal Failure: Chronic, Acute Interval History She is doing well. renal function is better. To start coumadin with heparin bridge. (Angelique Sharp) Review of Systems Gastrointestinal Gastrointestinal: Nausea & Vomiting (Angelique Sharp) Musculoskeletal MS: Pain/Stiffness (Angelique Sharp) Objective Data Data 02/20/17 02/21/17 19:00 07:00 Intake Total 416 ml 745 ml Output Total 600 ml 1375 ml Balance -184 ml -630 ml Intake Oral 240 ml 480 ml IV Total 176 ml 265 ml Output Urine Total 600 ml 1375 ml # Bowel Movements 0 Vital Signs Date Time Temp Pulse Resp B/P Pulse Ox O2 Delivery O2 Flow Rate FiO2 02/21/17 06:00 90 02/21/17 04:00 93 02/21/17 04:00 98.0 93 23 146/64 98 02/21/17 02:00 83 02/21/17 00:00 83 02/21/17 00:00 98.2 83 32 194/76 95 02/20/17 22:00 87 02/20/17 20:00 85 02/20/17 20:00 97.9 85 20 161/69 94 02/20/17 18:00 90 02/20/17 16:00 90 02/20/17 16:00 98.7 84 21 176/76 95 02/20/17 14:00 90 02/20/17 12:00 98.6 90 22 152/65 96 02/20/17 12:00 90 (Angelique Sharp) -: 02/21/17 0358 02/21/17 0358 Imaging Last Impressions Upper Extremity Ultrasound 02/19/17 0000 Signed Impressions: Service Date/Time: Sunday, February 19, 2017 10:25 - CONCLUSION: Nonocclusive thrombus identified in the distal right brachial vein and absent flow within the right radial vein. Marybeth Wright MD Hand X-Ray 02/17/17 0000 Signed Impressions: Service Date/Time: Friday, February 17, 2017 08:12 - CONCLUSION: Stable fracture through the proximal first metatarsal. Kevin Brooke MD Chest X-Ray 02/16/17 1636 Signed Impressions: Service Date/Time: January 17:04 - CONCLUSION: Hypoinflation with no acute cardiopulmonary process. Sarath Anthony MD Abdomen/Pelvis CT 02/16/17 0000 Signed Impressions: Service Date/Time: January 17:08 - CONCLUSION: 1. Intermediate density collection within the right anterior lower abdominal wall measuring 10.2 x 8.0 cm consistent with possible subcutaneous hematoma. Clinical correlation is recommended. 2. Severe ureteropelvicaliectasis bilaterally with urinary bladder distension suggesting possible bladder outlet obstruction. 3. Calcified nonobstructing left renal calculi. 4. Degenerative changes and scoliosis of the thoracolumbar spine. 5. Partially calcified right adnexal mass measuring 3.6 cm which is unchanged compared to the previous examination. Rigo Iqbal MD Tubes & Lines: Gates Drip Comment heparin (Angelique Sharp [employer]) Physical Exam General Appearance: Well Developed, Well Nourished, No Acute Distress, Comfortable, Sleeping (Angelique Sharp [employer]) Throat Throat Exam: Oral Mucosa Lutsen & Moist (AronAngelique [employer]) Pulmonary Resp Exam: Clear Bilaterally, Breath Sounds Equal, No Distress, Decreased Bases (AronAngelique [employer]) Cardiology CV Exam: Regular, Normal Sinus Rhythm (AronAngelique [employer]) Gastrointestinal/Abdomen GI Exam: Non-Tender, Bowel Sounds Present GI Remarks bruising/hematoma left abdominal wall (AronAngelique [employer]) Musculoskeletal MS Exam: Normal Tone, Unable to Ambulate (AronAngeliqeu [employer]) Integumentary Skin Exam: Warm, Dry (AronAngelique [employer]) Extremeties Extremities Exam: Pedal Pulses Palpable, Moderate Edema Extremeties Remarks right arm edema (AronAngelique [employer]) Neurologic Neuro Exam: Alert, Awake, Oriented, Speech Clear, Moving All Extremities ( AronAngelique [employer]) Psychiatric Psych Exam: Appropriate Responses (Angelique Sharp [employer]) Assessment/Plan Discussed Condition With: Patient Assessment Summary: [place]/Acute Renal Failure, [place] Hyperparathyroid Electrolyte Assessment: Hyperkalemia, Hypocalcemia Problem List: (1) Acute on chronic kidney failure Plan: Likely has underlying diabetic nephropathy baseline creatinine from 2013 2.08; at discharge earlier this month cr 2.08 she came in with obstructive uropathy, gates was placed good urine output, renal function continues to improve to follow up with urology after discharge, to be d/c with gates off IVF; tolerating oral fluids avoid nephrotoxins renal panel in am resume SERGIO at discharge (2) Hyperkalemia Plan: Due to diminished renal excretion corrected (3) Secondary hyperparathyroidism (of renal origin) Plan: on calcitriol, increase dosage to 1mcg/day severely vit D deficient she has been given IV calcium gluconate stop Vitamin D3 continue calcitriol at discharge; it was not on home medication list (4) Closed fracture of first metacarpal bone of left hand Plan: non surgical management (5) Syncope Plan: work up per admitting team (6) DVT (deep venous thrombosis) Plan: on heparin, pharmacy consulted to begin coumadin; will be maintained on therapy x 3 months (Angelique Sharp) Plan patient was seen and examined. Renal function is improving. No need to stop Vitamin D3 as she has severe deficiency of 25 hydroxy Vitamin D. I will resume it. Has secondary hyperparathyroidism. For the time being continue both Calcitriol and Vitamin D3. (Aneesh Rainey MD) Angelique Sharp Feb 21, 2017 10:09 Aneesh Rainey MD Feb 21, 2017 14:46
--- NOTE | 2017-02-21 16:06 | HHI.PR ---
Subjective Remarks f/u for multiple medical conditions in A/P. patient has no complaints. Denied any pain, N/V. Objective Vitals Vital Signs Date Time Temp Pulse Resp B/P Pulse Ox O2 Delivery O2 Flow Rate FiO2 02/21/17 12:00 98.4 79 20 189/79 98 02/21/17 12:00 81 02/21/17 10:00 81 02/21/17 08:00 98.6 76 22 166/72 96 02/21/17 08:00 98.6 76 22 166/72 95 02/21/17 08:00 81 02/21/17 06:00 90 02/21/17 04:00 93 02/21/17 04:00 98.0 93 23 146/64 98 02/21/17 02:00 83 02/21/17 00:00 83 02/21/17 00:00 98.2 83 32 194/76 95 02/20/17 22:00 87 02/20/17 20:00 85 02/20/17 20:00 97.9 85 20 161/69 94 02/20/17 18:00 90 I/O 02/20/17 02/20/17 02/20/17 02/21/17 02/21/17 02/21/17 07:00 15:00 23:00 07:00 15:00 23:00 Intake Total 1294 ml 416 ml 427 ml 318 ml 523 ml Output Total 600 ml 600 ml 800 ml 575 ml 1000 ml Balance 694 ml -184 ml -373 ml -257 ml -477 ml Intake Oral 240 ml 240 ml 240 ml 240 ml 360 ml IV Total 1054 ml 176 ml 187 ml 78 ml 163 ml Output Urine Total 600 ml 600 ml 800 ml 575 ml 1000 ml # Bowel Movements 0 0 0 Result Diagram: 02/21/17 0358 02/21/17 0358 Objective Remarks GENERAL: in NAD SKIN: Ecchymosis on the left side the abdomen. Per nurse and patient it has not worsened. HEAD: Normocephalic. EYES: No scleral icterus. No injection or drainage. NECK: Supple, trachea midline. No JVD or lymphadenopathy. CARDIOVASCULAR: Regular rate and rhythm without murmurs, gallops, or rubs. RESPIRATORY: Breath sounds equal bilaterally. No accessory muscle use. GASTROINTESTINAL: Abdomen soft, non-tender, nondistended. Medications and IVs Current Medications Sodium Chloride 2 ml 2 ml UNSCH PRN IVF FLUSH AFTER USING IV ACCESS; Start at 16:45; Stop 02/16/17 at 19:05; Status DC Sodium Chloride 1,000 ml @ 1,000 mls/hr Q1H IV Last administered on 02/16/17 18:00; Start 02/16/17 at 16:36; Stop 02/16/17 at 17:35; Status DC Sodium Chloride 1,000 ml @ 999 mls/hr BOLUS ONCE IV Last administered on 02/16 20:25; Start 02/16/17 at 18:15; Stop 02/16/17 at 19:15; Status DC Sodium Chloride (NS 250 ml Inj) 250 ml @ 15 mls/hr ONCE ONCE IV Last administered on 02/16/17 21:56; Start 02/16/17 at 18:15; Stop 02/17/17 at 10:54 ; Status DC Calcium Gluconate (Calcium Gluconate Inj) 1 gm ONCE ONCE IV PUSH Last administered on 02/16/17 18:58; Start 02/16/17 at 18:15; Stop 02/16/17 at 18:16 ; Status DC Calcium Gluconate (Calcium Gluconate Inj) 1 gm ONCE ONCE IV PUSH Last administered on 02/16/17 19:02; Start 02/16/17 at 18:15; Stop 02/16/17 at 18:16 ; Status DC Insulin Human Regular (NovoLIN R INJ) 10 units ONCE ONCE IVP Last administered on 02/16/17 20:25; Start 02/16/17 at 18:15; Stop 02/16/17 at 18:16 ; Status DC Dextrose (D50w (Vial) Inj) 50 ml ONCE ONCE IV PUSH Last administered on 20:25; Start 02/16/17 at 18:15; Stop 02/16/17 at 18:16; Status DC Sodium Bicarbonate (Sodium Bicarbonate 8.4% Inj) 50 meq ONCE ONCE IV PUSH Last administered on 02/16/17 20:26; Start 02/16/17 at 18:15; Stop 02/16/17 at 18:16; Status DC Midazolam HCl 1 mg 1 mg ONCE ONCE IV PUSH ; Start 02/16/17 at 18:45; Stop 02/16 at 18:46; Status DC Sodium Chloride (NS 1000 ml Inj) 1,000 ml @ 150 mls/hr Q6H40M IV Last administered on 02/17/17 02:56; Start 02/16/17 at 18:56; Stop 02/17/17 at 09:51 ; Status DC Sodium Chloride (NS Flush) 2 ml UNSCH PRN .XX FLUSH AFTER USING IV ACCESS; Start 02/16/17 at 19:00 Sodium Chloride (NS Flush) 2 ml BID .XX Last administered on 02/20/17 21:00; Start 02/16/17 at 21:00 Acetaminophen (Tylenol) 650 mg Q6H PRN PO FEVER >101F Last administered on 02/20 02:03; Start 02/16/17 at 19:00 Morphine Sulfate (Morphine Inj) 2 mg Q2H PRN IV PAIN SCALE 6 TO 10 Last administered on 02/19/17 04:33; Start 02/16/17 at 19:00 Famotidine (Pepcid Inj) 10 mg Q12HR IV PUSH Last administered on 02/19/17 09: 32; Start 02/16/17 at 21:00; Stop 02/19/17 at 10:33; Status DC Lorazepam (Ativan Inj) 1 mg Q4H PRN IV Agitation/Sedation Last administered on 02/19/17 09:32; Start 02/16/17 at 19:00; Stop 02/19/17 at 17:53; Status DC Ondansetron HCl (Zofran Inj) 4 mg Q6H PRN IV NAUSEA OR VOMITING Last administered on 02/20/17 22:44; Start 02/16/17 at 19:00 Metoclopramide HCl (Reglan Inj) 5 mg Q6H PRN IV NAUSEA OR VOMITING Last administered on 02/20/17 00:08; Start 02/16/17 at 19:00 Docusate Sodium (Colace) 100 mg BID PO Last administered on 02/20/17 09:40; Start 02/16/17 at 21:00 Zolpidem Tartrate (Ambien) 5 mg HS PRN PO INSOMNIA; Start 02/16/17 at 19:00 Albuterol/ Ipratropium (Duoneb Neb) 1 ampule Q2HR NEB PRN INH WHEEZING; Start 02/16/17 at 19:00 Heparin Sodium (Porcine) (Heparin Inj) 5,000 units Q8H SQ Last administered on 02/17/17 05:51; Start 02/16/17 at 22:00; Stop 02/19/17 at 20:52; Status DC Miscellaneous Information 1 Q361D XX ; Start 02/16/17 at 19:00 Chlorhexidine Gluconate (Chlorhexidine 2% Cloth) 3 pack Taper DAILY@04 TOP Last administered on 02/20/17 04:00; Start 02/17/17 at 04:00; Stop 02/13/18 at 03:59 Chlorhexidine Gluconate (Chlorhexidine 2% Cloth) 3 pack UNSCH PRN TOP HYGIENIC CARE; Start 02/16/17 at 19:00 Acetaminophen/ Hydrocodone Bitart 1 tab 1 tab Q6H PRN PO PAIN 1-10 Last administered on 02/19/17 03:24; Start 02/16/17 at 20:00 Calcium Gluconate 2 gm/Sodium Chloride 120 ml @ 60 mls/hr ONCE ONCE IV Last administered on 02/17/17 03:03; Start 02/17/17 at 03:00; Stop 02/17/17 at 04:59 ; Status DC Calcium Gluconate 2 gm/Sodium Chloride 120 ml @ 120 mls/hr ONCE ONCE IV Last administered on 02/17/17 08:50; Start 02/17/17 at 06:45; Stop 02/17/17 at 07:44 ; Status DC Sodium Chloride 1,000 ml @ 999 mls/hr BOLUS ONCE IV Last administered on 02/17 07:53; Start 02/17/17 at 07:15; Stop 02/17/17 at 08:15; Status DC Sodium Chloride/ Sodium Bicarbonate/ Sterile Water (Sodium Chloride 23.4% Inj/ Sodium Bicarbonate 8.4% Inj/Sterile Water For Inj) 1,109.625 ml @ 125 mls/hr Q8H53M IV Last administered on 02/20/17 00:49; Start 02/17/17 at 11:00; Stop 02/20/17 at 08:50; Status DC Dextrose (D50w (Vial) Inj) 50 ml STK-MED ONCE .ROUTE ; Start 02/17/17 at 09:37; Stop 02/17/17 at 09:38; Status DC Calcitriol (Rocaltrol) 0.5 mcg DAILY PO Last administered on 02/21/17 08:58; Start 02/17/17 at 10:00; Stop 02/21/17 at 10:32; Status DC Sodium Bicarbonate (Sodium Bicarbonate 8.4% Inj) 100 meq ONCE ONCE IV PUSH Last administered on 02/17/17 14:15; Start 02/17/17 at 14:15; Stop 02/17/17 at 14:16; Status DC Insulin Human Regular (NovoLIN R INJ) 7 units ONCE ONCE IV PUSH Last administered on 02/17/17 14:15; Start 02/17/17 at 14:15; Stop 02/17/17 at 14:16 ; Status DC Dextrose 25 ml 25 ml ONCE ONCE IV Last administered on 02/17/17 14:15; Start 02/17/17 at 14:15; Stop 02/17/17 at 14:16; Status DC Calcium Chloride 2 gm/Dextrose 120 ml @ 120 mls/hr ONCE ONCE IV Last administered on 02/17/17 14:15; Start 02/17/17 at 14:15; Stop 02/17/17 at 15:14 ; Status DC Calcium Gluconate/ Sodium Chloride (Calcium Gluconate Inj/NS Inj) 120 ml @ 120 mls/hr ONCE ONCE IV Last administered on 02/18/17 09:56; Start 02/18/17 at 06 :30; Stop 02/18/17 at 07:29; Status DC Sodium Bicarbonate (Sodium Bicarbonate 8.4% Inj) 50 meq ONCE ONCE IV PUSH Last administered on 02/18/17 06:50; Start 02/18/17 at 06:30; Stop 02/18/17 at 06:39; Status DC Cholecalciferol (Vitamin D3) 5,000 units DAILY PO Last administered on 08:58; Start 02/18/17 at 13:00; Stop 02/21/17 at 10:32; Status DC Dextrose (D50w (Vial) Inj) 25 ml UNSCH PRN IV PUSH HYPOGLYCEMIA-SEE COMMENTS; Start 02/18/17 at 19:15 Glucagon (Glucagon Inj) 1 mg UNSCH PRN OTHER HYPOGLYCEMIA-SEE COMMENTS; Start 02/18/17 at 19:15 Insulin Aspart (NovoLOG SUPPLEMENTAL SCALE) 1 ACHS SLIDING SCALE SQ ; Start at 21:00 Hydralazine HCl (Apresoline) 25 mg Q8HR PO Last administered on 02/19/17 20:31 ; Start 02/18/17 at 22:00; Stop 02/19/17 at 20:52; Status DC Clonidine (Catapres) 0.1 mg Q6H PRN PO SYS BP GREATER THAN 160 MMHG Last administered on 02/20/17 23:31; Start 02/18/17 at 19:30 Pantoprazole Sodium 40 mg 40 mg DAILY IV PUSH Last administered on 02/21/17 08 :57; Start 02/19/17 at 10:00 Heparin Sodium/ Dextrose (Heparin-D5W Inj) 250 ml @ 0 mls/hr TITRATE IV Last administered on 02/20/17 18:43; Start 02/19/17 at 17:30 Lorazepam (Ativan) 0.5 mg Q8H PRN PO anxiety Last administered on 02/20/17 00: 08; Start 02/19/17 at 17:45 Hydralazine HCl (Apresoline) 50 mg Q8HR PO Last administered on 02/21/17 05:59 ; Start 02/19/17 at 22:00 Hydralazine HCl 20 mg 20 mg ONCE ONCE IV PUSH Last administered on 02/21/17 02:53; Start 02/21/17 at 02:45; Stop 02/21/17 at 02:46; Status DC Calcium Gluconate 1 gm/Sodium Chloride 110 ml @ 110 mls/hr ONCE ONCE IV Last administered on 02/21/17 10:58; Start 02/21/17 at 10:00; Stop 02/21/17 at 10:59 ; Status DC Pharmacy Profile Note (Coumadin Consult Pharmacy) 0 ml @ 0 mls/hr UNSCH OTHER ; Start 02/21/17 at 09:30 Calcitriol (Rocaltrol) 1 mcg DAILY PO ; Start 02/22/17 at 09:00 Cholecalciferol (Vitamin D3) 5,000 units DAILY PO ; Start 02/21/17 at 14:45 Warfarin Sodium (Coumadin) 5 mg DAILY@16 PO ; Start 02/21/17 at 16:00 Patient Medication Teaching (Coumadin Booklet) 1 ONCE ONCE XX ; Start 02/21/17 at 16:00; Stop 02/21/17 at 16:01; Status DC A/P Problem List: (1) Closed fracture of first metacarpal bone of left hand ICD Code: S62.202A Status: Acute (2) Dehydration ICD Code: E86.0 Status: Acute (3) Hyperkalemia ICD Code: E87.5 Status: Acute (4) Morbid obesity with BMI of 45.0-49.9, adult ICD Code: E66.01 Status: Acute (5) Acute on chronic kidney failure ICD Code: N17.9 Status: Resolved Assessment and Plan Acute renal failure - Due to bladder outlet obstruction - Ureteropelvicaliectasis bilaterally - Gates placed in the ED, with improving creat and good UO - IVF per nephrology - bicarb drip -Nephrology following, no need for dialysis -Per urologist keep Gates in. Syncope while on toilet - likely due to hypotension (now resolved) -echo this month showed nml EF, no significant valve abnormality, cont tele Abdominal wall hematoma - right lower abdominal - measures 10.2 x 8 cm - Gen Surgery evaluation-conservative management -Hemoglobin stable. But I did not note any hematoma. I did note a ecchymosis on the left side the abdomen. -Continue to monitor. S/p Laparoscopic stone removal on 01/31/[address] Bridges, pathology showed a huge gall stone 5 cm in it's broadest dimension. Anemia of acute blood loss - s/p 2 unit pRBC - Due to above -Hemoglobin stable. - Monitor H&H - Transfuse for hemoglobin below 7. Bladder outlet obstruction - Gates in place - Urology consult - Dr. Ulloa recommends (via RN) that patient should be discharged with gates and followup with him in his office Right arm nonocclusive DVT in the distal right brachial vein -Patient cleared by general surgery to start anticoagulation. Per patient currently on a heparin drip. -See treatment as above. H/H stable so will start coumadin. Mildly comminuted and slightly displaced fracture through the Left proximal metadiaphysis of the first metacarpal - Ortho consult - Dr. Kuo recommends nonoperative management with thumb spica splint Hypertension -uncontrolled -on hydralazine to 50 mg by mouth 3 times a day - Hold lisinopril due to previous hyperkalemia and acute kidney injury - Hydralazine when necessary DM type 2 -continue accucheks with SSI Secondary hyperparathyroidism - cont cacitriol. Hypocalcemia with vitamin D deficiency - cont vitamin D3, calcium replacement. Emesis -RESOLVED (?). -Questionable coffee ground found to days ago. When I asked nurse he stated that he is not aware of this. Per patient and nurse patient did not have any episode. -Continue Protonix. DVT prophylaxis -On heparin Discharge Planning Patient to be transferred to med/surg. She continues to require hospitalization. We will need to monitor hemoglobin due to hematoma and patient being on anticoagulation. Jen Rosado MD Feb 21, 2017 16:06
[2017-02-21] MEDS: WARFARIN SOD 5 MG TAB PO SCH (16:50)
[2017-02-21] MEDS: HEPARIN-D5W INJ 250 ML IV SCH (16:55)
[2017-02-21] MEDS: cloNIDine HCL 0.1 MG TAB PO PRN (18:57)
[2017-02-21 20:06] LABS: APTT (PATIENT) 64.3 SEC (24.3-30.1)
[2017-02-22] VITALS (7 sets, daily range): BP systolic 153–195; BP diastolic 74–84; PULSE 73–82; RESP 17–20; TEMP 97.1–98.9; O2SAT 96–99
[2017-02-22 01:41] LABS: APTT (PATIENT) 47.4 SEC (24.3-30.1)
[2017-02-22] MEDS: CHLORHEXIDINE GLUCONATE 2 % 1 PACK (2 CLOTHS) TOP SCH (03:21)
[2017-02-22] MEDS: HEPARIN-D5W INJ 250 ML IV SCH ×2 (04:02→18:11)
[2017-02-22] MEDS: INSULIN ASPART SUPPLEMENTAL SCALE SQ SCH ×4 (06:20→21:00)
[2017-02-22] MEDS: hydrALAZINE HCL 25 MG TAB PO SCH ×3 (06:48→22:00)
[2017-02-22 07:21] LABS: HEMATOCRIT 25.9 % (35.0-46.0); MEAN CELL VOLUME 83.4 FL (80.0-100.0); MEAN CORPUSCULAR HEMOGLOBIN 27.5 PG (27.0-34.0); MEAN CORPUSCULAR HGB CONC 32.9 % (32.0-36.0); PLATELET COUNT 162 TH/MM3 (150-450); RED BLOOD COUNT 3.11 MIL/MM3 (4.00-5.30); RED CELL DISTRIBUTION WIDTH 15.4 % (11.6-17.2); REVIEW FLAG FINAL; WHITE BLOOD COUNT 7.1 TH/MM3 (4.0-11.0)
[2017-02-22 07:32] LABS: APTT (PATIENT) 43.4 SEC (24.3-30.1); INTERNATIONAL NORMALIZED RATIO 1.1 RATIO; PROTHROMBIN TIME - PATIENT 12.5 SEC (9.8-11.6)
[2017-02-22 07:39] LABS: POTASSIUM 4.1 MEQ/L (3.5-5.1)
[2017-02-22] MEDS: PANTOPRAZOLE SODIUM 40 MG VIAL IV PUSH SCH (08:21)
[2017-02-22] MEDS: SODIUM CHLORIDE 0.9% FLUSH 10 ML FLUSH SCH ×2 (08:21→21:00)
[2017-02-22] MEDS: DOCUSATE SODIUM 100 MG CAP PO SCH ×2 (08:22→21:00)
[2017-02-22] MEDS: CHOLECALCIFEROL (VIT D3) 5000 UNIT CAP PO SCH (08:23)
[2017-02-22] MEDS: CALCITRIOL 0.25 MCG CAP PO SCH (08:23)
--- NOTE | 2017-02-22 09:47 | HHI.NPPN ---
Subjective Complaints: Obesity General Problems: Anemia Renal Failure: Chronic, Acute Interval History Lying in bed. Renal function is better. Heparin drip continues. Eating well. No new concerns. (Angelique Sharp) Review of Systems Gastrointestinal Gastrointestinal: Nausea & Vomiting (Angelique Sharp) Musculoskeletal MS: Pain/Stiffness (Angelique Sharp) Objective Data Data 02/21/17 02/22/17 19:00 07:00 Intake Total 523 ml Output Total 1000 ml 800 ml Balance -477 ml -800 ml Intake Oral 360 ml IV Total 163 ml Output Urine Total 1000 ml 800 ml # Bowel Movements 1 Vital Signs Date Time Temp Pulse Resp B/P Pulse Ox O2 Delivery O2 Flow Rate FiO2 02/22/17 07:15 75 18 161/74 97 02/22/17 06:10 98.2 82 17 193/83 96 02/22/17 04:36 74 19 153/74 97 02/22/17 00:18 98.3 73 20 181/78 97 02/21/17 21:53 75 18 155/72 95 02/21/17 21:00 97.8 80 17 183/79 98 02/21/17 16:00 81 02/21/17 16:00 98.5 76 20 179/78 95 02/21/17 12:00 98.4 79 20 189/79 98 02/21/17 12:00 81 02/21/17 10:00 81 (Angelique Sharp) -: 02/22/17 0635 02/22/17 0635 Imaging Last Impressions Upper Extremity Ultrasound 02/19/17 0000 Signed Impressions: Service Date/Time: Sunday, February 19, 2017 10:25 - CONCLUSION: Nonocclusive thrombus identified in the distal right brachial vein and absent flow within the right radial vein. Marybeth Wright MD Hand X-Ray 02/17/17 0000 Signed Impressions: Service Date/Time: Friday, February 17, 2017 08:12 - CONCLUSION: Stable fracture through the proximal first metatarsal. Kevin Brooke MD Chest X-Ray 02/16/17 1636 Signed Impressions: Service Date/Time: January 17:04 - CONCLUSION: Hypoinflation with no acute cardiopulmonary process. Sarath Anthony MD Abdomen/Pelvis CT 02/16/17 0000 Signed Impressions: Service Date/Time: January 17:08 - CONCLUSION: 1. Intermediate density collection within the right anterior lower abdominal wall measuring 10.2 x 8.0 cm consistent with possible subcutaneous hematoma. Clinical correlation is recommended. 2. Severe ureteropelvicaliectasis bilaterally with urinary bladder distension suggesting possible bladder outlet obstruction. 3. Calcified nonobstructing left renal calculi. 4. Degenerative changes and scoliosis of the thoracolumbar spine. 5. Partially calcified right adnexal mass measuring 3.6 cm which is unchanged compared to the previous examination. Rigo Iqbal MD Tubes & Lines: Gates Drip Comment heparin (Angelique Sharp B. [employer] SYSTEM[employer] ENGINEER) Physical Exam General Appearance: Well Developed, Well Nourished, No Acute Distress, Comfortable, Sleeping (AronAngelique B. [employer]S ENGINEER) Eyes Eye Exam: Pupils Equal, Pupils Reactive (AronAngelique B. [employer]S ENGINEER) Throat Throat Exam: Oral Mucosa [place] & Moist (AronAngelique B. [employer] SYSTEMS ENGINEER) Pulmonary Resp Exam: Clear Bilaterally, Breath Sounds Equal, No Distress, Decreased Bases (AronAngelique B. [employer] ENGINEER) Cardiology CV Exam: Regular, Normal Sinus Rhythm, Good Perfusion (AronAngelique B. [employer] ENGINEER) Gastrointestinal/Abdomen GI Exam: Soft, Non-Tender, Bowel Sounds Present GI Remarks bruising/hematoma left abdominal wall (Aron,Angelique B. [employer] SYSTEMS ENGINEER) Musculoskeletal MS Exam: Joints Intact, Normal Tone (AronAngelique B. [employer] SYSTEMS ENGINEER) Integumentary Skin Exam: Clear, Warm, Dry, Intact (Aron,Angelique B. [employer] SYSTEMS ENGINEER) Extremeties Extremities Exam: Pedal Pulses Palpable, Moderate Edema Extremeties Remarks right arm edema (AronAngelique B. [employer] SYSTEM[employer] ENGINEER) Neurologic Neuro Exam: Alert, Awake, Oriented, Speech Clear, Moving All Extremities ( AronAngelique B. [employer] SYSTEM[employer] ENGINEER) Psychiatric Psych Exam: Appropriate Responses (Angelique Sharp B. [employer] SYSTEMS ENGINEER) Assessment/Plan Discussed Condition With: Patient Assessment Summary: [place]/Acute Renal Failure, [place] Hyperparathyroid Electrolyte Assessment: Hyperkalemia, Hypocalcemia Problem List: (1) Acute on chronic kidney failure Plan: Likely has underlying diabetic nephropathy baseline creatinine from 2013 2.08; at discharge earlier this month cr 2.08 she came in with obstructive uropathy, gates was placed good urine output, renal function improving to follow up with urology after discharge, to be d/c with gates off IVF; tolerating oral fluids avoid nephrotoxins daily renal panel resume SERGIO at discharge (2) Hyperkalemia Plan: Due to diminished renal excretion corrected (3) Secondary hyperparathyroidism (of renal origin) Plan: on calcitriol at 1mcg/day severely vit D deficient; also on oral Vitamin D she has been given IV calcium gluconate continue calcitriol at discharge; it was not on home medication list at time of readmission (4) Closed fracture of first metacarpal bone of left hand Plan: non surgical management (5) Syncope Plan: work up per admitting team (6) DVT (deep venous thrombosis) Plan: on heparin drip Coumadin was started, follow INR; will be maintained on therapy x 3 months (7) Anemia Plan: check iron profile she was given 2 units PRBC since admission, has hematoma left abdomen from fall (Angelique Sharp) Problem List: (1) Acute on chronic kidney failure Plan: Likely has underlying diabetic nephropathy baseline creatinine from 2013 2.08; at discharge earlier this month cr 2.08 she came in with obstructive uropathy, gates was placed good urine output, renal function improving to follow up with urology after discharge, to be d/c with gates off IVF; tolerating oral fluids avoid nephrotoxins daily renal panel resume SERGIO at discharge (2) Hyperkalemia Plan: Due to diminished renal excretion corrected (3) Secondary hyperparathyroidism (of renal origin) Plan: on calcitriol at 1mcg/day severely vit D deficient; also on oral Vitamin D she has been given IV calcium gluconate continue calcitriol at discharge; it was not on home medication list at time of readmission (4) Closed fracture of first metacarpal bone of left hand Plan: non surgical management (5) Syncope Plan: work up per admitting team (6) DVT (deep venous thrombosis) Plan: on heparin drip Coumadin was started, follow INR; will be maintained on therapy x 3 months (7) Anemia Plan: check iron profile she was given 2 units PRBC since admission, has hematoma left abdomen from fall Plan patient was seen and examined. Renal function is stable, improved. Cleared for discharge from renal standpoint. (Aneesh Rainey MD) Problem Qualifiers (1) Closed fracture of first metacarpal bone of left hand: Qualified Code: S62.235A - Other closed nondisplaced fracture of base of first metacarpal bone of left hand, initial encounter Angelique Sharp Feb 22, 2017 09:47 Aneesh Rainey MD Feb 23, 2017 11:58
[2017-02-22 10:31] LABS: TRANSFERRIN IRON PROFILE 139 MG/DL (200-360)
[2017-02-22] MEDS ORDERED: CALCIUM GLUCONATE INJ 2 GM in SODIUM CHLORIDE 0.9% INJ 100 ML IV ONE (12:00)
--- NOTE | 2017-02-22 12:05 | HHI.PR ---
Subjective Remarks f/u for anemia, DVT , ARF and low calcium. patient has no complaints. She denied any chest pain, palpitations, or SOB. she stated that she is upset that she has to be discharge with gates. no other complaints. Objective Vitals Vital Signs Date Time Temp Pulse Resp B/P Pulse Ox O2 Delivery O2 Flow Rate FiO2 02/22/17 10:09 98.1 75 20 173/81 97 02/22/17 07:15 75 18 161/74 97 02/22/17 06:10 98.2 82 17 193/83 96 02/22/17 04:36 74 19 153/74 97 02/22/17 00:18 98.3 73 20 181/78 97 02/21/17 21:53 75 18 155/72 95 02/21/17 21:00 97.8 80 17 183/79 98 02/21/17 16:00 81 02/21/17 16:00 98.5 76 20 179/78 95 I/O 02/21/17 02/21/17 02/21/17 02/22/17 02/22/17 02/22/17 07:00 15:00 23:00 07:00 15:00 23:00 Intake Total 318 ml 523 ml Output Total 575 ml 1000 ml 200 ml 600 ml Balance -257 ml -477 ml -200 ml -600 ml Intake Oral 240 ml 360 ml IV Total 78 ml 163 ml Output Urine Total 575 ml 1000 ml 200 ml 600 ml # Bowel Movements 0 1 Result Diagram: 02/22/17 0635 02/22/17 0635 Objective Remarks GENERAL: in NAD SKIN: Ecchymosis on the left side the abdomen. Per nurse and patient it has not worsened. HEAD: Normocephalic. EYES: No scleral icterus. No injection or drainage. NECK: Supple, trachea midline. No JVD or lymphadenopathy. CARDIOVASCULAR: Regular rate and rhythm without murmurs, gallops, or rubs. RESPIRATORY: Breath sounds equal bilaterally. No accessory muscle use. GASTROINTESTINAL: Abdomen soft, non-tender, nondistended. Medications and IVs Current Medications Sodium Chloride 2 ml 2 ml UNSCH PRN IVF FLUSH AFTER USING IV ACCESS; Start at 16:45; Stop 02/16/17 at 19:05; Status DC Sodium Chloride 1,000 ml @ 1,000 mls/hr Q1H IV Last administered on 02/16/17 18:00; Start 02/16/17 at 16:36; Stop 02/16/17 at 17:35; Status DC Sodium Chloride 1,000 ml @ 999 mls/hr BOLUS ONCE IV Last administered on 02/16 20:25; Start 02/16/17 at 18:15; Stop 02/16/17 at 19:15; Status DC Sodium Chloride (NS 250 ml Inj) 250 ml @ 15 mls/hr ONCE ONCE IV Last administered on 02/16/17 21:56; Start 02/16/17 at 18:15; Stop 02/17/17 at 10:54 ; Status DC Calcium Gluconate (Calcium Gluconate Inj) 1 gm ONCE ONCE IV PUSH Last administered on 02/16/17 18:58; Start 02/16/17 at 18:15; Stop 02/16/17 at 18:16 ; Status DC Calcium Gluconate (Calcium Gluconate Inj) 1 gm ONCE ONCE IV PUSH Last administered on 02/16/17 19:02; Start 02/16/17 at 18:15; Stop 02/16/17 at 18:16 ; Status DC Insulin Human Regular (NovoLIN R INJ) 10 units ONCE ONCE IVP Last administered on 02/16/17 20:25; Start 02/16/17 at 18:15; Stop 02/16/17 at 18:16 ; Status DC Dextrose (D50w (Vial) Inj) 50 ml ONCE ONCE IV PUSH Last administered on 20:25; Start 02/16/17 at 18:15; Stop 02/16/17 at 18:16; Status DC Sodium Bicarbonate (Sodium Bicarbonate 8.4% Inj) 50 meq ONCE ONCE IV PUSH Last administered on 02/16/17 20:26; Start 02/16/17 at 18:15; Stop 02/16/17 at 18:16; Status DC Midazolam HCl 1 mg 1 mg ONCE ONCE IV PUSH ; Start 02/16/17 at 18:45; Stop 02/16 at 18:46; Status DC Sodium Chloride (NS 1000 ml Inj) 1,000 ml @ 150 mls/hr Q6H40M IV Last administered on 02/17/17 02:56; Start 02/16/17 at 18:56; Stop 02/17/17 at 09:51 ; Status DC Sodium Chloride (NS Flush) 2 ml UNSCH PRN .XX FLUSH AFTER USING IV ACCESS; Start 02/16/17 at 19:00 Sodium Chloride (NS Flush) 2 ml BID .XX Last administered on 02/20/17 21:00; Start 02/16/17 at 21:00 Acetaminophen (Tylenol) 650 mg Q6H PRN PO FEVER >101F Last administered on 02/20 02:03; Start 02/16/17 at 19:00 Morphine Sulfate (Morphine Inj) 2 mg Q2H PRN IV PAIN SCALE 6 TO 10 Last administered on 02/19/17 04:33; Start 02/16/17 at 19:00 Famotidine (Pepcid Inj) 10 mg Q12HR IV PUSH Last administered on 02/19/17 09: 32; Start 02/16/17 at 21:00; Stop 02/19/17 at 10:33; Status DC Lorazepam (Ativan Inj) 1 mg Q4H PRN IV Agitation/Sedation Last administered on 02/19/17 09:32; Start 02/16/17 at 19:00; Stop 02/19/17 at 17:53; Status DC Ondansetron HCl (Zofran Inj) 4 mg Q6H PRN IV NAUSEA OR VOMITING Last administered on 02/20/17 22:44; Start 02/16/17 at 19:00 Metoclopramide HCl (Reglan Inj) 5 mg Q6H PRN IV NAUSEA OR VOMITING Last administered on 02/20/17 00:08; Start 02/16/17 at 19:00 Docusate Sodium (Colace) 100 mg BID PO Last administered on 02/21/17 22:06; Start 02/16/17 at 21:00 Zolpidem Tartrate (Ambien) 5 mg HS PRN PO INSOMNIA; Start 02/16/17 at 19:00 Albuterol/ Ipratropium (Duoneb Neb) 1 ampule Q2HR NEB PRN INH WHEEZING; Start 02/16/17 at 19:00 Heparin Sodium (Porcine) (Heparin Inj) 5,000 units Q8H SQ Last administered on 02/17/17 05:51; Start 02/16/17 at 22:00; Stop 02/19/17 at 20:52; Status DC Miscellaneous Information 1 Q361D XX ; Start 02/16/17 at 19:00 Chlorhexidine Gluconate (Chlorhexidine 2% Cloth) Taper DAILY@04 TOP Last administered on 02/20/17 04:00; Start 02/17/17 at 04:00; Stop 02/13/18 at 03:59 Chlorhexidine Gluconate (Chlorhexidine 2% Cloth) 3 pack UNSCH PRN TOP HYGIENIC CARE; Start 02/16/17 at 19:00 Acetaminophen/ Hydrocodone Bitart 1 tab 1 tab Q6H PRN PO PAIN 1-10 Last administered on 02/19/17 03:24; Start 02/16/17 at 20:00 Calcium Gluconate 2 gm/Sodium Chloride 120 ml @ 60 mls/hr ONCE ONCE IV Last administered on 02/17/17 03:03; Start 02/17/17 at 03:00; Stop 02/17/17 at 04:59 ; Status DC Calcium Gluconate 2 gm/Sodium Chloride 120 ml @ 120 mls/hr ONCE ONCE IV Last administered on 02/17/17 08:50; Start 02/17/17 at 06:45; Stop 02/17/17 at 07:44 ; Status DC Sodium Chloride 1,000 ml @ 999 mls/hr BOLUS ONCE IV Last administered on 02/17 07:53; Start 02/17/17 at 07:15; Stop 02/17/17 at 08:15; Status DC Sodium Chloride/ Sodium Bicarbonate/ Sterile Water (Sodium Chloride 23.4% Inj/ Sodium Bicarbonate 8.4% Inj/Sterile Water For Inj) 1,109.625 ml @ 125 mls/hr Q8H53M IV Last administered on 02/20/17 00:49; Start 02/17/17 at 11:00; Stop 02/20/17 at 08:50; Status DC Dextrose (D50w (Vial) Inj) 50 ml STK-MED ONCE .ROUTE ; Start 02/17/17 at 09:37; Stop 02/17/17 at 09:38; Status DC Calcitriol (Rocaltrol) 0.5 mcg DAILY PO Last administered on 02/21/17 08:58; Start 02/17/17 at 10:00; Stop 02/21/17 at 10:32; Status DC Sodium Bicarbonate (Sodium Bicarbonate 8.4% Inj) 100 meq ONCE ONCE IV PUSH Last administered on 02/17/17 14:15; Start 02/17/17 at 14:15; Stop 02/17/17 at 14:16; Status DC Insulin Human Regular (NovoLIN R INJ) 7 units ONCE ONCE IV PUSH Last administered on 02/17/17 14:15; Start 02/17/17 at 14:15; Stop 02/17/17 at 14:16 ; Status DC Dextrose 25 ml 25 ml ONCE ONCE IV Last administered on 02/17/17 14:15; Start 02/17/17 at 14:15; Stop 02/17/17 at 14:16; Status DC Calcium Chloride 2 gm/Dextrose 120 ml @ 120 mls/hr ONCE ONCE IV Last administered on 02/17/17 14:15; Start 02/17/17 at 14:15; Stop 02/17/17 at 15:14 ; Status DC Calcium Gluconate/ Sodium Chloride (Calcium Gluconate Inj/NS Inj) 120 ml @ 120 mls/hr ONCE ONCE IV Last administered on 02/18/17 09:56; Start 02/18/17 at 06 :30; Stop 02/18/17 at 07:29; Status DC Sodium Bicarbonate (Sodium Bicarbonate 8.4% Inj) 50 meq ONCE ONCE IV PUSH Last administered on 02/18/17 06:50; Start 02/18/17 at 06:30; Stop 02/18/17 at 06:39; Status DC Cholecalciferol (Vitamin D3) 5,000 units DAILY PO Last administered on 08:58; Start 02/18/17 at 13:00; Stop 02/21/17 at 10:32; Status DC Dextrose (D50w (Vial) Inj) 25 ml UNSCH PRN IV PUSH HYPOGLYCEMIA-SEE COMMENTS; Start 02/18/17 at 19:15 Glucagon (Glucagon Inj) 1 mg UNSCH PRN OTHER HYPOGLYCEMIA-SEE COMMENTS; Start 02/18/17 at 19:15 Insulin Aspart (NovoLOG SUPPLEMENTAL SCALE) 1 ACHS SLIDING SCALE SQ Last administered on 02/21/17 22:07; Start 02/18/17 at 21:00 Hydralazine HCl (Apresoline) 25 mg Q8HR PO Last administered on 02/19/17 20:31 ; Start 02/18/17 at 22:00; Stop 02/19/17 at 20:52; Status DC Clonidine (Catapres) 0.1 mg Q6H PRN PO SYS BP GREATER THAN 160 MMHG Last administered on 02/21/17 18:57; Start 02/18/17 at 19:30 Pantoprazole Sodium 40 mg 40 mg DAILY IV PUSH Last administered on 02/21/17 08 :57; Start 02/19/17 at 10:00 Heparin Sodium/ Dextrose (Heparin-D5W Inj) 250 ml @ 0 mls/hr TITRATE IV Last administered on 02/22/17 04:02; Start 02/19/17 at 17:30 Lorazepam (Ativan) 0.5 mg Q8H PRN PO anxiety Last administered on 02/20/17 00: 08; Start 02/19/17 at 17:45 Hydralazine HCl (Apresoline) 50 mg Q8HR PO Last administered on 02/22/17 06:48 ; Start 02/19/17 at 22:00 Hydralazine HCl 20 mg 20 mg ONCE ONCE IV PUSH Last administered on 02/21/17 02:53; Start 02/21/17 at 02:45; Stop 02/21/17 at 02:46; Status DC Calcium Gluconate 1 gm/Sodium Chloride 110 ml @ 110 mls/hr ONCE ONCE IV Last administered on 02/21/17 10:58; Start 02/21/17 at 10:00; Stop 02/21/17 at 10:59 ; Status DC Pharmacy Profile Note (Coumadin Consult Pharmacy) 0 ml @ 0 mls/hr UNSCH OTHER ; Start 02/21/17 at 09:30 Calcitriol (Rocaltrol) 1 mcg DAILY PO Last administered on 02/22/17 08:23; Start 02/22/17 at 09:00 Cholecalciferol (Vitamin D3) 5,000 units DAILY PO Last administered on 08:23; Start 02/21/17 at 14:45 Warfarin Sodium (Coumadin) 5 mg DAILY@16 PO Last administered on 02/21/17 16: 50; Start 02/21/17 at 16:00 Patient Medication Teaching (Coumadin Booklet) 1 ONCE ONCE XX Last administered on 02/21/17 16:00; Start 02/21/17 at 16:00; Stop 02/21/17 at 16:01 ; Status DC Warfarin Sodium 2.5 mg 2.5 mg ONCE PO ; Start 02/22/17 at 16:00; Stop 02/22/17 at 21:00 Calcium Gluconate/ Sodium Chloride (Calcium Gluconate Inj/NS Inj) 120 ml @ 120 mls/hr ONCE ONCE IV ; Start 02/22/17 at 12:00; Stop 02/22/17 at 12:59 A/P Problem List: (1) Closed fracture of first metacarpal bone of left hand ICD Code: S62.202A Status: Acute (2) Dehydration ICD Code: E86.0 Status: Acute (3) Hyperkalemia ICD Code: E87.5 Status: Acute (4) Morbid obesity with BMI of 45.0-49.9, adult ICD Code: E66.01 Status: Acute (5) Acute on chronic kidney failure ICD Code: N17.9 Status: Resolved Assessment and Plan Acute renal failure - Due to bladder outlet obstruction - Ureteropelvicaliectasis bilaterally - Gates placed in the ED, with improving creat and good UO - IVF per nephrology - bicarb drip -Nephrology following, no need for dialysis -Per urologist keep Gates in. Syncope while on toilet - likely due to hypotension (now resolved) -echo this month showed nml EF, no significant valve abnormality, cont tele Abdominal wall hematoma - right lower abdominal - measures 10.2 x 8 cm - Gen Surgery evaluation-conservative management -Hemoglobin stable. But I did not note any hematoma. I did note a ecchymosis on the left side the abdomen. -Continue to monitor. S/p Laparoscopic stone removal on 01/31/[address] Bridges, pathology showed a huge gall stone 5 cm in it's broadest dimension. Anemia of acute blood loss - s/p 2 unit pRBC - Due to above -Hemoglobin stable. - Monitor H&H - Transfuse for hemoglobin below 7. Bladder outlet obstruction - Gates in place - Urology consult - Dr. Ulloa recommends (via RN) that patient should be discharged with gates and followup with him in his office Right arm nonocclusive DVT in the distal right brachial vein -Patient cleared by general surgery to start anticoagulation. Per patient currently on a heparin drip. -See treatment as above. H/H stable so will start coumadin. Mildly comminuted and slightly displaced fracture through the Left proximal metadiaphysis of the first metacarpal - Ortho consult - Dr. Kuo recommends nonoperative management with thumb spica splint Hypertension -uncontrolled -on hydralazine to 50 mg by mouth 3 times a day - Hold lisinopril due to previous hyperkalemia and acute kidney injury - Hydralazine when necessary DM type 2 -continue accucheks with SSI Secondary hyperparathyroidism - cont cacitriol. Hypocalcemia with vitamin D deficiency - cont vitamin D3, calcium replacement. -will need to give another dose IV calcium gluconate. Emesis -RESOLVED (?).I really do not think patient had coffee ground emesis. she denied this herself. -Questionable coffee ground found to days ago. When I asked nurse he stated that he is not aware of this. Per patient and nurse patient did not have any episode. -Continue Protonix. DVT prophylaxis -On heparin Discharge Planning patient needs to be transition to coumadin while on heparin gtt and she continues to requires IV calcium. Jen Rosado MD Feb 22, 2017 12:05
[2017-02-22] MEDS: ONDANSETRON HCL 4 MG/2 ML VIAL IV PRN (15:03)
[2017-02-22] MEDS ORDERED: WARFARIN SOD 2.5 MG TAB PO SCH (16:00)
[2017-02-22] MEDS: WARFARIN SOD 5 MG TAB PO SCH (16:00)
[2017-02-22] MEDS: cloNIDine HCL 0.1 MG TAB PO PRN (16:07)
[2017-02-23] VITALS: BP 206/90; PULSE 77; RESP 20; TEMP 98.3; O2SAT 98
[2017-02-23] MEDS: cloNIDine HCL 0.1 MG TAB PO PRN ×3 (00:16→23:32)
[2017-02-23] MEDS: ACETAMINOPHEN/HYDROcodone 325 MG/5 MG TAB PO PRN (00:17)
[2017-02-23 04:00] VITALS: BP 199/87; PULSE 86; RESP 18; TEMP 98; O2SAT 98
[2017-02-23] MEDS: CHLORHEXIDINE GLUCONATE 2 % 1 PACK (2 CLOTHS) TOP SCH (04:00)
[2017-02-23] MEDS: hydrALAZINE HCL 25 MG TAB PO SCH (05:17)
[2017-02-23] MEDS: INSULIN ASPART SUPPLEMENTAL SCALE SQ SCH ×4 (05:21→21:00)
[2017-02-23] MEDS: HEPARIN-D5W INJ 250 ML IV SCH ×2 (05:27→20:28)
[2017-02-23 08:22] LABS: HEMATOCRIT 30.6 % (35.0-46.0); MEAN CELL VOLUME 81.6 FL (80.0-100.0); MEAN CORPUSCULAR HGB CONC 34.3 % (32.0-36.0); PLATELET COUNT 159 TH/MM3 (150-450); RED BLOOD COUNT 3.75 MIL/MM3 (4.00-5.30); RED CELL DISTRIBUTION WIDTH 15.3 % (11.6-17.2); REVIEW FLAG FINAL; WHITE BLOOD COUNT 6.3 TH/MM3 (4.0-11.0)
[2017-02-23 08:34] LABS: POTASSIUM 4.6 MEQ/L (3.5-5.1)
[2017-02-23 08:51] VITALS: BP 161/80; PULSE 75; RESP 18; TEMP 97.5; O2SAT 95
[2017-02-23] MEDS: SODIUM CHLORIDE 0.9% FLUSH 10 ML FLUSH SCH ×2 (08:53→21:00)
[2017-02-23] MEDS: PANTOPRAZOLE SODIUM 40 MG VIAL IV PUSH SCH (08:53)
[2017-02-23] MEDS: CHOLECALCIFEROL (VIT D3) 5000 UNIT CAP PO SCH (08:54)
[2017-02-23] MEDS: DOCUSATE SODIUM 100 MG CAP PO SCH ×2 (08:54→21:00)
[2017-02-23] MEDS: CALCITRIOL 0.25 MCG CAP PO SCH (08:54)
--- NOTE | 2017-02-23 09:44 | HHI.NPPN ---
Subjective Complaints: Obesity General Problems: Anemia, Hypertension Renal Failure: Chronic, Acute Interval History Renal function is better. She is nauseated today, refused BP medications. Hypertensive overnight. (Angelique Sharp) Review of Systems Gastrointestinal Gastrointestinal: Nausea & Vomiting (Angelique Sharp) Musculoskeletal MS: Pain/Stiffness (Angelique Sharp) Objective Data Data 02/22/17 02/23/17 19:00 07:00 Intake Total 240 ml 120 ml Output Total 1100 ml 1000 ml Balance -860 ml -880 ml Intake Oral 240 ml 120 ml Output Urine Total 1100 ml 1000 ml Vital Signs Date Time Temp Pulse Resp B/P Pulse Ox O2 Delivery O2 Flow Rate FiO2 02/23/17 08:51 97.5 75 18 161/80 95 02/23/17 04:00 98.0 86 18 199/87 98 02/23/17 00:00 98.3 77 20 206/90 98 02/22/17 20:00 97.1 82 20 195/84 98 02/22/17 18:17 98.9 74 20 180/78 99 02/22/17 10:09 98.1 75 20 173/81 97 (Angelique Sharp) -: 02/23/17 0722 02/23/17 0722 Tubes & Lines: Gates Drip Comment heparin (Angelique Sharp) Physical Exam General Appearance: Well Developed, Well Nourished, No Acute Distress, Comfortable, Sleeping (Angelique Sharp) Eyes Eye Exam: Pupils Equal, Pupils Reactive (Angelique Sharp) Throat Throat Exam: Oral Mucosa Avant & Moist (Angelique Sharp) Pulmonary Resp Exam: Clear Bilaterally, Breath Sounds Equal, No Distress, Decreased Bases (Angelique Sharp) Cardiology CV Exam: Regular, Normal Sinus Rhythm, Good Perfusion (Angelique Sharp) Gastrointestinal/Abdomen GI Exam: Soft, Non-Tender, Bowel Sounds Present GI Remarks bruising/hematoma left abdominal wall (Angelique Sharp) Musculoskeletal MS Exam: Joints Intact, Normal Tone (Angelique Sharp) Integumentary Skin Exam: Clear, Warm, Dry, Intact (Angelique Sharp) Extremeties Extremities Exam: Pedal Pulses Palpable, Moderate Edema Extremeties Remarks right arm edema (Angelique Sharp) Neurologic Neuro Exam: Alert, Awake, Oriented, Speech Clear, Moving All Extremities ( Angelique Sharp) Psychiatric Psych Exam: Appropriate Responses (Angelique Sharp) Assessment/Plan Discussed Condition With: Patient Assessment Summary: [place]/Acute Renal Failure, [place] Hyperparathyroid Electrolyte Assessment: Hyperkalemia, Hypocalcemia Problem List: (1) Acute on chronic kidney failure Plan: Likely has underlying diabetic nephropathy baseline creatinine from 2014 2.08; at discharge earlier this month cr 2.08 she came in with obstructive uropathy, gates was placed good urine output, renal function improving daily to follow up with urology after discharge, to be d/c with gates off IVF; tolerating oral fluids avoid nephrotoxins daily renal panel (2) Hyperkalemia Plan: Due to diminished renal excretion corrected (3) Secondary hyperparathyroidism (of renal origin) Plan: on calcitriol at 1mcg/day severely vit D deficient; also on oral Vitamin D she has been given IV calcium gluconate continue calcitriol at discharge; it was not on home medication list at time of readmission (4) Closed fracture of first metacarpal bone of left hand Plan: non surgical management (5) Syncope Plan: work up per admitting team (6) DVT (deep venous thrombosis) Plan: on heparin drip Coumadin was started, follow INR; will be maintained on therapy x 3 months (7) Anemia Plan: she is not iron deficient she was given 2 units PRBC since admission, has hematoma left abdomen from fall (8) Hypertension Plan: refused hydralazine on multiple occasions, ordered amlodipine resume lisinopril PRN clonidine (Angelique Sharp) Plan patient was seen and examined. Renal function continues to improve. Can be discharged from renal standpoint. (Aneesh Rainey MD) Problem Qualifiers (1) Closed fracture of first metacarpal bone of left hand: Qualified Code: S62.235A - Other closed nondisplaced fracture of base of first metacarpal bone of left hand, initial encounter Angelique Sharp Feb 23, 2017 09:44 Aneesh Rainey MD Feb 23, 2017 12:07
[2017-02-23 10:00] LABS: APTT (PATIENT) 81.4 SEC (24.3-30.1); INTERNATIONAL NORMALIZED RATIO 1.4 RATIO; PROTHROMBIN TIME - PATIENT 15.8 SEC (9.8-11.6)
--- NOTE | 2017-02-23 11:01 | HHI.PR ---
Subjective Remarks Follow-up for hematoma, DVT, hypocalcemia Patient is very anxious she is asking to go home today. She is not an bleeding at all. Patient stated the PT will only let her sit in bed. Patient does not have a PCP. Dealt with patient's nurse and her only concern is that her blood pressure is elevated. Objective Vitals Vital Signs Date Time Temp Pulse Resp B/P Pulse Ox O2 Delivery O2 Flow Rate FiO2 02/23/17 08:51 97.5 75 18 161/80 95 02/23/17 04:00 98.0 86 18 199/87 98 02/23/17 00:00 98.3 77 20 206/90 98 02/22/17 20:00 97.1 82 20 195/84 98 02/22/17 18:17 98.9 74 20 180/78 99 I/O 02/22/17 02/22/17 02/22/17 02/23/17 02/23/17 02/23/17 07:00 15:00 23:00 07:00 15:00 23:00 Intake Total 240 ml 120 ml Output Total 600 ml 1100 ml 1000 ml Balance -600 ml -860 ml -880 ml Intake Oral 240 ml 120 ml Output Urine Total 600 ml 1100 ml 1000 ml Result Diagram: 02/23/1772102/23/17721 Objective Remarks GENERAL: in NAD SKIN: Ecchymosis on the left side the abdomen. Per nurse and patient it has not worsened. HEAD: Normocephalic. EYES: No scleral icterus. No injection or drainage. NECK: Supple, trachea midline. No JVD or lymphadenopathy. CARDIOVASCULAR: Regular rate and rhythm without murmurs, gallops, or rubs. RESPIRATORY: Breath sounds equal bilaterally. No accessory muscle use. GASTROINTESTINAL: Abdomen soft, non-tender, nondistended. Medications and IVs Current Medications Sodium Chloride 2 ml 2 ml UNSCH PRN IVF FLUSH AFTER USING IV ACCESS; Start at 16:45; Stop 02/16/17 at 19:05; Status DC Sodium Chloride 1,000 ml @ 1,000 mls/hr Q1H IV Last administered on 02/16/17t 18:00; Start 02/16/17 at 16:36; Stop 02/16/17 at 17:35; Status DC Sodium Chloride 1,000 ml @ 999 mls/hr BOLUS ONCE IV Last administered on 02/16 20:25; Start 02/16/17 at 18:15; Stop 02/16/17 at 19:15; Status DC Sodium Chloride (NS 250 ml Inj) 250 ml @ 15 mls/hr ONCE ONCE IV Last administered on 02/16/17 21:56; Start 02/16/17 at 18:15; Stop 02/17/17 at 10:54 ; Status DC Calcium Gluconate (Calcium Gluconate Inj) 1 gm ONCE ONCE IV PUSH Last administered on 02/16/17 18:58; Start 02/16/17 at 18:15; Stop 02/16/17 at 18:16 ; Status DC Calcium Gluconate (Calcium Gluconate Inj) 1 gm ONCE ONCE IV PUSH Last administered on 02/16/17 19:02; Start 02/16/17 at 18:15; Stop 02/16/17 at 18:16 ; Status DC Insulin Human Regular (NovoLIN R INJ) 10 units ONCE ONCE IVP Last administered on 02/16/17 20:25; Start 02/16/17 at 18:15; Stop 02/16/17 at 18:16 ; Status DC Dextrose (D50w (Vial) Inj) 50 ml ONCE ONCE IV PUSH Last administered on 20:25; Start 02/16/17 at 18:15; Stop 02/16/17 at 18:16; Status DC Sodium Bicarbonate (Sodium Bicarbonate 8.4% Inj) 50 meq ONCE ONCE IV PUSH Last administered on 02/16/17 20:26; Start 02/16/17 at 18:15; Stop 02/16/17 at 18:16; Status DC Midazolam HCl 1 mg 1 mg ONCE ONCE IV PUSH ; Start 02/16/17 at 18:45; Stop 02/16 at 18:46; Status DC Sodium Chloride (NS 1000 ml Inj) 1,000 ml @ 150 mls/hr Q6H40M IV Last administered on 02/17/17 02:56; Start 02/16/17 at 18:56; Stop 02/17/17 at 09:51 ; Status DC Sodium Chloride (NS Flush) 2 ml UNSCH PRN .XX FLUSH AFTER USING IV ACCESS; Start 02/16/17 at 19:00 Sodium Chloride (NS Flush) 2 ml BID .XX Last administered on 02/23/17 08:53; Start 02/16/17 at 21:00 Acetaminophen (Tylenol) 650 mg Q6H PRN PO FEVER >101F Last administered on 02/20 02:03; Start 02/16/17 at 19:00 Morphine Sulfate (Morphine Inj) 2 mg Q2H PRN IV PAIN SCALE 6 TO 10 Last administered on 02/19/17 04:33; Start 02/16/17 at 19:00 Famotidine (Pepcid Inj) 10 mg Q12HR IV PUSH Last administered on 02/19/17 09: 32; Start 02/16/17 at 21:00; Stop 02/19/17 at 10:33; Status DC Lorazepam (Ativan Inj) 1 mg Q4H PRN IV Agitation/Sedation Last administered on 02/19/17 09:32; Start 02/16/17 at 19:00; Stop 02/19/17 at 17:53; Status DC Ondansetron HCl (Zofran Inj) 4 mg Q6H PRN IV NAUSEA OR VOMITING Last administered on 02/22/17 15:03; Start 02/16/17 at 19:00 Metoclopramide HCl (Reglan Inj) 5 mg Q6H PRN IV NAUSEA OR VOMITING Last administered on 02/20/17 00:08; Start 02/16/17 at 19:00 Docusate Sodium (Colace) 100 mg BID PO Last administered on 02/21/17 22:06; Start 02/16/17 at 21:00 Zolpidem Tartrate (Ambien) 5 mg HS PRN PO INSOMNIA; Start 02/16/17 at 19:00 Albuterol/ Ipratropium (Duoneb Neb) 1 ampule Q2HR NEB PRN INH WHEEZING; Start 02/16/17 at 19:00 Heparin Sodium (Porcine) (Heparin Inj) 5,000 units Q8H SQ Last administered on 02/17/17 05:51; Start 02/16/17 at 22:00; Stop 02/19/17 at 20:52; Status DC Miscellaneous Information 1 Q361D XX ; Start 02/16/17 at 19:00 Chlorhexidine Gluconate (Chlorhexidine 2% Cloth) Taper DAILY@04 TOP Last administered on 02/20/17 04:00; Start 02/17/17 at 04:00; Stop 02/13/18 at 03:59 Chlorhexidine Gluconate (Chlorhexidine 2% Cloth) 3 pack UNSCH PRN TOP HYGIENIC CARE; Start 02/16/17 at 19:00 Acetaminophen/ Hydrocodone Bitart 1 tab 1 tab Q6H PRN PO PAIN 1-10 Last administered on 02/23/17 00:17; Start 02/16/17 at 20:00 Calcium Gluconate 2 gm/Sodium Chloride 120 ml @ 60 mls/hr ONCE ONCE IV Last administered on 02/17/17 03:03; Start 02/17/17 at 03:00; Stop 02/17/17 at 04:59 ; Status DC Calcium Gluconate 2 gm/Sodium Chloride 120 ml @ 120 mls/hr ONCE ONCE IV Last administered on 02/17/17 08:50; Start 02/17/17 at 06:45; Stop 02/17/17 at 07:44 ; Status DC Sodium Chloride 1,000 ml @ 999 mls/hr BOLUS ONCE IV Last administered on 02/17 07:53; Start 02/17/17 at 07:15; Stop 02/17/17 at 08:15; Status DC Sodium Chloride/ Sodium Bicarbonate/ Sterile Water (Sodium Chloride 23.4% Inj/ Sodium Bicarbonate 8.4% Inj/Sterile Water For Inj) 1,109.625 ml @ 125 mls/hr Q8H53M IV Last administered on 02/20/17 00:49; Start 02/17/17 at 11:00; Stop 02/20/17 at 08:50; Status DC Dextrose (D50w (Vial) Inj) 50 ml STK-MED ONCE .ROUTE ; Start 02/17/17 at 09:37; Stop 02/17/17 at 09:38; Status DC Calcitriol (Rocaltrol) 0.5 mcg DAILY PO Last administered on 02/21/17 08:58; Start 02/17/17 at 10:00; Stop 02/21/17 at 10:32; Status DC Sodium Bicarbonate (Sodium Bicarbonate 8.4% Inj) 100 meq ONCE ONCE IV PUSH Last administered on 02/17/17 14:15; Start 02/17/17 at 14:15; Stop 02/17/17 at 14:16; Status DC Insulin Human Regular (NovoLIN R INJ) 7 units ONCE ONCE IV PUSH Last administered on 02/17/17 14:15; Start 02/17/17 at 14:15; Stop 02/17/17 at 14:16 ; Status DC Dextrose 25 ml 25 ml ONCE ONCE IV Last administered on 02/17/17 14:15; Start 02/17/17 at 14:15; Stop 02/17/17 at 14:16; Status DC Calcium Chloride 2 gm/Dextrose 120 ml @ 120 mls/hr ONCE ONCE IV Last administered on 02/17/17 14:15; Start 02/17/17 at 14:15; Stop 02/17/17 at 15:14 ; Status DC Calcium Gluconate/ Sodium Chloride (Calcium Gluconate Inj/NS Inj) 120 ml @ 120 mls/hr ONCE ONCE IV Last administered on 02/18/17 09:56; Start 02/18/17 at 06 :30; Stop 02/18/17 at 07:29; Status DC Sodium Bicarbonate (Sodium Bicarbonate 8.4% Inj) 50 meq ONCE ONCE IV PUSH Last administered on 02/18/17 06:50; Start 02/18/17 at 06:30; Stop 02/18/17 at 06:39; Status DC Cholecalciferol (Vitamin D3) 5,000 units DAILY PO Last administered on 08:58; Start 02/18/17 at 13:00; Stop 02/21/17 at 10:32; Status DC Dextrose (D50w (Vial) Inj) 25 ml UNSCH PRN IV PUSH HYPOGLYCEMIA-SEE COMMENTS; Start 02/18/17 at 19:15 Glucagon (Glucagon Inj) 1 mg UNSCH PRN OTHER HYPOGLYCEMIA-SEE COMMENTS; Start 02/18/17 at 19:15 Insulin Aspart (NovoLOG SUPPLEMENTAL SCALE) 1 ACHS SLIDING SCALE SQ Last administered on 02/21/17 22:07; Start 02/18/17 at 21:00 Hydralazine HCl (Apresoline) 25 mg Q8HR PO Last administered on 02/19/17 20:31 ; Start 02/18/17 at 22:00; Stop 02/19/17 at 20:52; Status DC Clonidine (Catapres) 0.1 mg Q6H PRN PO SYS BP GREATER THAN 160 MMHG Last administered on 02/23/17 05:16; Start 02/18/17 at 19:30 Pantoprazole Sodium 40 mg 40 mg DAILY IV PUSH Last administered on 02/23/17 08 :53; Start 02/19/17 at 10:00 Heparin Sodium/ Dextrose (Heparin-D5W Inj) 250 ml @ 0 mls/hr TITRATE IV Last administered on 02/23/17 05:27; Start 02/19/17 at 17:30 Lorazepam (Ativan) 0.5 mg Q8H PRN PO anxiety Last administered on 02/20/17 00: 08; Start 02/19/17 at 17:45 Hydralazine HCl (Apresoline) 50 mg Q8HR PO Last administered on 02/22/17 14:21 ; Start 02/19/17 at 22:00; Status Hold Hydralazine HCl 20 mg 20 mg ONCE ONCE IV PUSH Last administered on 02/21/17 02:53; Start 02/21/17 at 02:45; Stop 02/21/17 at 02:46; Status DC Calcium Gluconate 1 gm/Sodium Chloride 110 ml @ 110 mls/hr ONCE ONCE IV Last administered on 02/21/17 10:58; Start 02/21/17 at 10:00; Stop 02/21/17 at 10:59 ; Status DC Pharmacy Profile Note (Coumadin Consult Pharmacy) 0 ml @ 0 mls/hr UNSCH OTHER ; Start 02/21/17 at 09:30 Calcitriol (Rocaltrol) 1 mcg DAILY PO Last administered on 02/23/17 08:54; Start 02/22/17 at 09:00 Cholecalciferol (Vitamin D3) 5,000 units DAILY PO Last administered on 08:54; Start 02/21/17 at 14:45 Warfarin Sodium (Coumadin) 5 mg DAILY@16 PO Last administered on 02/22/17 16: 00; Start 02/21/17 at 16:00 Patient Medication Teaching (Coumadin Booklet) 1 ONCE ONCE XX Last administered on 02/21/17 16:00; Start 02/21/17 at 16:00; Stop 02/21/17 at 16:01 ; Status DC Warfarin Sodium 2.5 mg 2.5 mg ONCE PO Last administered on 02/22/17 16:00; Start 02/22/17 at 16:00; Stop 02/22/17 at 21:00; Status DC Calcium Gluconate/ Sodium Chloride (Calcium Gluconate Inj/NS Inj) 120 ml @ 120 mls/hr ONCE ONCE IV Last administered on 02/22/17 12:05; Start 02/22/17 at 12 :00; Stop 02/22/17 at 12:59; Status DC Amlodipine Besylate (Norvasc) 10 mg DAILY PO Last administered on 02/23/17 10: 24; Start 02/23/17 at 10:00 Lisinopril (Prinivil) 5 mg DAILY PO ; Start 02/23/17 at 13:00 A/P Problem List: (1) Closed fracture of first metacarpal bone of left hand ICD Code: S62.202A Status: Acute (2) Dehydration ICD Code: E86.0 Status: Acute (3) Hyperkalemia ICD Code: E87.5 Status: Acute (4) Morbid obesity with BMI of 45.0-49.9, adult ICD Code: E66.01 Status: Acute (5) Acute on chronic kidney failure ICD Code: N17.9 Status: Resolved Assessment and Plan Acute renal failure - Due to bladder outlet obstruction - Ureteropelvicaliectasis bilaterally - Gates placed in the ED, with improving creat and good UO -Nephrology following, no need for dialysis -Per urologist keep Gates in and patient to follow-up as outpatient. Syncope while on toilet - likely due to hypotension (now resolved) -echo this month showed nml EF, no significant valve abnormality, cont tele Abdominal wall hematoma - left lower abdominal seemed to resolve. - Gen Surgery evaluation-conservative management -Hemoglobin stable. -Continue to monitor. S/p Laparoscopic stone removal on 01/31/[address] Bridges, pathology showed a huge gall stone 5 cm in it's broadest dimension. Anemia of acute blood loss - s/p 2 unit pRBC - Due to above -Hemoglobin stable. - Monitor H&H - Transfuse for hemoglobin below 7. Bladder outlet obstruction - Gates in place - Urology consult - Dr. Ulloa recommends (via RN) that patient should be discharged with gates and followup with him in his office Right arm nonocclusive DVT in the distal right brachial vein -Patient cleared by general surgery to start anticoagulation. Per patient currently on a heparin drip bridging to Coumadin. -See treatment as above. Mildly comminuted and slightly displaced fracture through the Left proximal metadiaphysis of the first metacarpal - Ortho consult - Dr. Kuo recommends nonoperative management with thumb spica splint Hypertension -uncontrolled -on hydralazine to 50 mg by mouth 3 times a day -Will add amlodipine. - Hold lisinopril due to previous hyperkalemia and acute kidney injury - Hydralazine when necessary DM type 2 -continue accucheks with SSI Secondary hyperparathyroidism - cont cacitriol. Hypocalcemia with vitamin D deficiency - cont vitamin D3, calcium replacement. Emesis -RESOLVED (?).I really do not think patient had coffee ground emesis. she denied this herself. -Questionable coffee ground found to days ago. When I asked nurse he stated that he is not aware of this. Per patient and nurse patient did not have any episode. -Continue Protonix. DVT prophylaxis -On heparin Discharge Planning Patient continued to require hospitalization due to patient being on heparin drip transitioning to Coumadin. She does not have a PCP as outpatient and no follow-up in regards to anticoagulation/INR. Unable to use any other anticoagulant that does not require monitoring secondary to her renal failure. Dealt with case management regards to this and she stated that patient needs to call her insurance company to find a PCP. I told patient this. Also I will consult physical therapist again to help get patient out of bed. Patient requests to go home but at the moment it is unsafe for patient to go home. Problem Qualifiers (1) Closed fracture of first metacarpal bone of left hand: Qualified Code: S62.235A - Other closed nondisplaced fracture of base of first metacarpal bone of left hand, initial encounter Jen Rosado MD Feb 23, 2017 11:00
[2017-02-23 12:26] VITALS: BP 167/80; PULSE 89; RESP 18; TEMP 97; O2SAT 97
[2017-02-23] MEDS: LISINOPRIL 5 MG TAB PO SCH (12:42)
[2017-02-23] MEDS: WARFARIN SOD 5 MG TAB PO SCH (16:22)
[2017-02-23 17:24] LABS: APTT (PATIENT) 52.3 SEC (24.3-30.1)
[2017-02-23 17:53] VITALS: BP 165/70; PULSE 77; RESP 18; TEMP 97.2; O2SAT 95
[2017-02-23 20:00] VITALS: BP_SYST 125; BP_SYST 162; BP_DIAS 69; PULSE 81; PULSE 95; RESP 18; TEMP 97.6; TEMP 98.5; O2SAT 97; O2SAT 99
[2017-02-23 23:34] LABS: APTT (PATIENT) 55.5 SEC (24.3-30.1)
[2017-02-24] VITALS: BP 163/67; PULSE 80; RESP 18; TEMP 98.5; O2SAT 99
[2017-02-24] MEDS: ONDANSETRON HCL 4 MG/2 ML VIAL IV PRN (03:39)
[2017-02-24 04:00] VITALS: BP 158/62; PULSE 80; RESP 20; TEMP 98.4; O2SAT 99
[2017-02-24] MEDS: CHLORHEXIDINE GLUCONATE 2 % 1 PACK (2 CLOTHS) TOP SCH (04:00)
[2017-02-24] MEDS: INSULIN ASPART SUPPLEMENTAL SCALE SQ SCH ×4 (06:15→21:00)
[2017-02-24] MEDS: LORazepam 0.5 MG TAB PO PRN (06:24)
[2017-02-24] MEDS: MORPHINE SULFATE 4 MG/ML INJ IV PRN ×2 (06:25→22:49)
[2017-02-24 06:50] LABS: APTT (PATIENT) 71.4 SEC (24.3-30.1)
[2017-02-24 07:12] LABS: HEMATOCRIT 29.5 % (35.0-46.0); MEAN CELL VOLUME 83.3 FL (80.0-100.0); MEAN CORPUSCULAR HEMOGLOBIN 27.6 PG (27.0-34.0); MEAN CORPUSCULAR HGB CONC 33.1 % (32.0-36.0); PLATELET COUNT 182 TH/MM3 (150-450); RED BLOOD COUNT 3.54 MIL/MM3 (4.00-5.30); RED CELL DISTRIBUTION WIDTH 14.8 % (11.6-17.2); WHITE BLOOD COUNT 6.6 TH/MM3 (4.0-11.0)
[2017-02-24 07:13] LABS: REVIEW FLAG FINAL
[2017-02-24 08:00] VITALS: BP 176/77; PULSE 75; RESP 18; TEMP 97.8; O2SAT 96
[2017-02-24 08:12] LABS: BICARBONATE 20.1 MEQ/L (21.0-32.0); POTASSIUM 4.4 MEQ/L (3.5-5.1)
[2017-02-24] MEDS: SODIUM CHLORIDE 0.9% FLUSH 10 ML FLUSH SCH ×2 (09:00→21:00)
[2017-02-24] MEDS: DOCUSATE SODIUM 100 MG CAP PO SCH ×2 (09:00→21:00)
[2017-02-24] MEDS: LISINOPRIL 5 MG TAB PO SCH (09:30)
[2017-02-24] MEDS: PANTOPRAZOLE SODIUM 40 MG VIAL IV PUSH SCH (09:30)
[2017-02-24] MEDS: CHOLECALCIFEROL (VIT D3) 5000 UNIT CAP PO SCH (09:30)
[2017-02-24] MEDS: CALCITRIOL 0.25 MCG CAP PO SCH (09:31)
--- NOTE | 2017-02-24 09:35 | HHI.NPPN ---
Subjective Complaints: Obesity General Problems: Anemia, Hypertension Renal Failure: Chronic, Acute Interval History Nausea has subsided. Renal function is better. Heparin continues. (Angelique Sharp) Review of Systems Musculoskeletal MS: Pain/Stiffness (Angelique Sharp) Objective Data Data 02/23/17 02/24/17 19:00 07:00 Intake Total 480 ml 960 ml Output Total 1450 ml 1500 ml Balance -970 ml -540 ml Intake Oral 480 ml 960 ml Output Urine Total 1450 ml 1500 ml Vital Signs Date Time Temp Pulse Resp B/P Pulse Ox O2 Delivery O2 Flow Rate FiO2 02/24/17 08:00 97.8 75 18 176/77 96 02/24/17 04:00 98.4 80 20 158/62 99 02/24/17 00:00 98.5 80 18 163/67 99 02/23/17 20:00 97.6 95 18 125/69 97 02/23/17 20:00 98.5 81 18 162/69 99 02/23/17 17:53 97.2 77 18 165/70 95 02/23/17 12:26 97.0 89 18 167/80 97 (Angelique Sharp) -: 02/24/17 0606 02/24/17 0606 Tubes & Lines: Gates Drip Comment heparin (Angelique Sharp) Physical Exam General Appearance: Well Developed, Well Nourished, No Acute Distress, Comfortable, Obese (Angelique Sharp) Eyes Eye Exam: Pupils Equal, Pupils Reactive (Angelique Sharp) Throat Throat Exam: Oral Mucosa [place] & Moist (Angelique Sharp) Pulmonary Resp Exam: Clear Bilaterally, Breath Sounds Equal, No Distress, Decreased Bases (Angelique Sharp) Cardiology CV Exam: Regular, Normal Sinus Rhythm, Good Perfusion (Angelique Sharp) Gastrointestinal/Abdomen GI Exam: Soft, Non-Tender, Bowel Sounds Present GI Remarks bruising/hematoma left abdominal wall (Angelique Sharp) Musculoskeletal MS Exam: Joints Intact, Normal Tone (Angelique Sharp) Integumentary Skin Exam: Clear, Warm, Dry, Intact (Angelique Sharp) Extremeties Extremities Exam: Pedal Pulses Palpable, Moderate Edema Extremeties Remarks right arm edema, improving (Angelique Sharp) Neurologic Neuro Exam: Alert, Awake, Oriented, Speech Clear, Moving All Extremities ( Angelique Sharp) Psychiatric Psych Exam: Appropriate Responses (Angelique Sharp) VTE Prophylaxis Device: SCDs Meds: Heparin (Angelique Sharp) Assessment/Plan Discussed Condition With: Patient Assessment Summary: [place]/Acute Renal Failure, [place] Hyperparathyroid Electrolyte Assessment: Hyperkalemia, Hypocalcemia Problem List: (1) Acute on chronic kidney failure Plan: Likely has underlying diabetic nephropathy baseline creatinine from 2013 2.08; at discharge earlier this month cr 2.08 she came in with obstructive uropathy, gates was placed excellent urine output continued improvement in renal function to follow up with urology after discharge, to be d/c with gates off IVF; tolerating oral fluids avoid nephrotoxins daily renal panel she can be discharged from renal standpoint (2) Hyperkalemia Plan: Due to diminished renal excretion corrected (3) Secondary hyperparathyroidism (of renal origin) Plan: calcium improving, on calcitriol, reduce to 0.5 mcg daily severely vit D deficient; also on oral Vitamin D she has been given IV calcium gluconate continue calcitriol at discharge; it was not on home medication list at time of readmission (4) Closed fracture of first metacarpal bone of left hand Plan: non surgical management (5) Syncope Plan: work up per admitting team (6) DVT (deep venous thrombosis) Plan: on heparin drip Coumadin was started, follow INR; will be maintained on therapy x 3 months (7) Anemia Plan: no evidence of iron deficiency she was given 2 units PRBC since admission, has hematoma left abdomen from fall (8) Hypertension Plan: on amlodipine, lisinopril resumed monitor blood pressure PRN clonidine (Angelique Sharp) Plan patient was seen and examined. Renal function probably at baseline. Continue supportive care. Awaiting INR to become therapeutic before discharge. Stable from renal standpoint. (Aneesh Rainey MD) Problem Qualifiers (1) Closed fracture of first metacarpal bone of left hand: Qualified Code: S62.235A - Other closed nondisplaced fracture of base of first metacarpal bone of left hand, initial encounter Angelique Sharp Feb 24, 2017 09:35 Aneesh Rainey MD Feb 24, 2017 13:37
[2017-02-24] MEDS: HEPARIN-D5W INJ 250 ML IV SCH (11:33)
[2017-02-24 12:00] VITALS: BP 170/72; PULSE 72; RESP 18; TEMP 96.7; O2SAT 98
[2017-02-24] MEDS: ACETAMINOPHEN/HYDROcodone 325 MG/5 MG TAB PO PRN (13:31)
--- NOTE | 2017-02-24 14:28 | HHI.PR ---
Subjective Remarks f/u for DVT and hematoma. patient has no complaints. She is anxious to go home. Denied any CP, SOB, or palpitations. Objective Vitals Vital Signs Date Time Temp Pulse Resp B/P Pulse Ox O2 Delivery O2 Flow Rate FiO2 02/24/17 12:00 96.7 72 18 170/72 98 02/24/17 08:00 97.8 75 18 176/77 96 02/24/17 04:00 98.4 80 20 158/62 99 02/24/17 00:00 98.5 80 18 163/67 99 02/23/17 20:00 97.6 95 18 125/69 97 02/23/17 20:00 98.5 81 18 162/69 99 02/23/17 17:53 97.2 77 18 165/70 95 I/O 02/23/17 02/23/17 02/23/17 02/24/17 02/24/17 02/24/17 07:00 15:00 23:00 07:00 15:00 23:00 Intake Total 120 ml 480 ml 600 ml 360 ml Output Total 1000 ml 1450 ml 700 ml 800 ml Balance -880 ml -970 ml -100 ml -440 ml Intake Oral 120 ml 480 ml 600 ml 360 ml Output Urine Total 1000 ml 1450 ml 700 ml 800 ml Result Diagram: 02/24/1760502/24/17 06 Objective Remarks GENERAL: in NAD SKIN: Ecchymosis on the left side the abdomen. Per nurse and patient it has not worsened. HEAD: Normocephalic. EYES: No scleral icterus. No injection or drainage. NECK: Supple, trachea midline. No JVD or lymphadenopathy. CARDIOVASCULAR: Regular rate and rhythm without murmurs, gallops, or rubs. RESPIRATORY: Breath sounds equal bilaterally. No accessory muscle use. GASTROINTESTINAL: Abdomen soft, non-tender, nondistended. Medications and IVs Current Medications Sodium Chloride 2 ml 2 ml UNSCH PRN IVF FLUSH AFTER USING IV ACCESS; Start at 16:45; Stop 02/16/17 at 19:05; Status DC Sodium Chloride 1,000 ml @ 1,000 mls/hr Q1H IV Last administered on 02/16/17t 18:00; Start 02/16/17 at 16:36; Stop 02/16/17 at 17:35; Status DC Sodium Chloride 1,000 ml @ 999 mls/hr BOLUS ONCE IV Last administered on 02/16 20:25; Start 02/16/17 at 18:15; Stop 02/16/17 at 19:15; Status DC Sodium Chloride (NS 250 ml Inj) 250 ml @ 15 mls/hr ONCE ONCE IV Last administered on 02/16/17 21:56; Start 02/16/17 at 18:15; Stop 02/17/17 at 10:54 ; Status DC Calcium Gluconate (Calcium Gluconate Inj) 1 gm ONCE ONCE IV PUSH Last administered on 02/16/17 18:58; Start 02/16/17 at 18:15; Stop 02/16/17 at 18:16 ; Status DC Calcium Gluconate (Calcium Gluconate Inj) 1 gm ONCE ONCE IV PUSH Last administered on 02/16/17 19:02; Start 02/16/17 at 18:15; Stop 02/16/17 at 18:16 ; Status DC Insulin Human Regular (NovoLIN R INJ) 10 units ONCE ONCE IVP Last administered on 02/16/17 20:25; Start 02/16/17 at 18:15; Stop 02/16/17 at 18:16 ; Status DC Dextrose (D50w (Vial) Inj) 50 ml ONCE ONCE IV PUSH Last administered on 20:25; Start 02/16/17 at 18:15; Stop 02/16/17 at 18:16; Status DC Sodium Bicarbonate (Sodium Bicarbonate 8.4% Inj) 50 meq ONCE ONCE IV PUSH Last administered on 02/16/17 20:26; Start 02/16/17 at 18:15; Stop 02/16/17 at 18:16; Status DC Midazolam HCl 1 mg 1 mg ONCE ONCE IV PUSH ; Start 02/16/17 at 18:45; Stop 02/16 at 18:46; Status DC Sodium Chloride (NS 1000 ml Inj) 1,000 ml @ 150 mls/hr Q6H40M IV Last administered on 02/17/17 02:56; Start 02/16/17 at 18:56; Stop 02/17/17 at 09:51 ; Status DC Sodium Chloride (NS Flush) 2 ml UNSCH PRN .XX FLUSH AFTER USING IV ACCESS; Start 02/16/17 at 19:00 Sodium Chloride (NS Flush) 2 ml BID .XX Last administered on 02/24/17 09:00; Start 02/16/17 at 21:00 Acetaminophen (Tylenol) 650 mg Q6H PRN PO FEVER >101F Last administered on 02/20 02:03; Start 02/16/17 at 19:00 Morphine Sulfate (Morphine Inj) 2 mg Q2H PRN IV PAIN SCALE 6 TO 10 Last administered on 02/24/17 06:25; Start 02/16/17 at 19:00 Famotidine (Pepcid Inj) 10 mg Q12HR IV PUSH Last administered on 02/19/17 09: 32; Start 02/16/17 at 21:00; Stop 02/19/17 at 10:33; Status DC Lorazepam (Ativan Inj) 1 mg Q4H PRN IV Agitation/Sedation Last administered on 02/19/17 09:32; Start 02/16/17 at 19:00; Stop 02/19/17 at 17:53; Status DC Ondansetron HCl (Zofran Inj) 4 mg Q6H PRN IV NAUSEA OR VOMITING Last administered on 02/24/17 03:39; Start 02/16/17 at 19:00 Metoclopramide HCl (Reglan Inj) 5 mg Q6H PRN IV NAUSEA OR VOMITING Last administered on 02/20/17 00:08; Start 02/16/17 at 19:00 Docusate Sodium (Colace) 100 mg BID PO Last administered on 02/21/17 22:06; Start 02/16/17 at 21:00 Zolpidem Tartrate (Ambien) 5 mg HS PRN PO INSOMNIA; Start 02/16/17 at 19:00 Albuterol/ Ipratropium (Duoneb Neb) 1 ampule Q2HR NEB PRN INH WHEEZING; Start 02/16/17 at 19:00 Heparin Sodium (Porcine) (Heparin Inj) 5,000 units Q8H SQ Last administered on 02/17/17 05:51; Start 02/16/17 at 22:00; Stop 02/19/17 at 20:52; Status DC Miscellaneous Information 1 Q361D XX ; Start 02/16/17 at 19:00 Chlorhexidine Gluconate (Chlorhexidine 2% Cloth) Taper DAILY@04 TOP Last administered on 02/20/17 04:00; Start 02/17/17 at 04:00; Stop 02/13/18 at 03:59 Chlorhexidine Gluconate (Chlorhexidine 2% Cloth) 3 pack UNSCH PRN TOP HYGIENIC CARE; Start 02/16/17 at 19:00 Acetaminophen/ Hydrocodone Bitart 1 tab 1 tab Q6H PRN PO PAIN 1-10 Last administered on 02/24/17 13:31; Start 02/16/17 at 20:00 Calcium Gluconate 2 gm/Sodium Chloride 120 ml @ 60 mls/hr ONCE ONCE IV Last administered on 02/17/17 03:03; Start 02/17/17 at 03:00; Stop 02/17/17 at 04:59 ; Status DC Calcium Gluconate 2 gm/Sodium Chloride 120 ml @ 120 mls/hr ONCE ONCE IV Last administered on 02/17/17 08:50; Start 02/17/17 at 06:45; Stop 02/17/17 at 07:44 ; Status DC Sodium Chloride 1,000 ml @ 999 mls/hr BOLUS ONCE IV Last administered on 02/17 07:53; Start 02/17/17 at 07:15; Stop 02/17/17 at 08:15; Status DC Sodium Chloride/ Sodium Bicarbonate/ Sterile Water (Sodium Chloride 23.4% Inj/ Sodium Bicarbonate 8.4% Inj/Sterile Water For Inj) 1,109.625 ml @ 125 mls/hr Q8H53M IV Last administered on 02/20/17 00:49; Start 02/17/17 at 11:00; Stop 02/20/17 at 08:50; Status DC Dextrose (D50w (Vial) Inj) 50 ml STK-MED ONCE .ROUTE ; Start 02/17/17 at 09:37; Stop 02/17/17 at 09:38; Status DC Calcitriol (Rocaltrol) 0.5 mcg DAILY PO Last administered on 02/21/17 08:58; Start 02/17/17 at 10:00; Stop 02/21/17 at 10:32; Status DC Sodium Bicarbonate (Sodium Bicarbonate 8.4% Inj) 100 meq ONCE ONCE IV PUSH Last administered on 02/17/17 14:15; Start 02/17/17 at 14:15; Stop 02/17/17 at 14:16; Status DC Insulin Human Regular (NovoLIN R INJ) 7 units ONCE ONCE IV PUSH Last administered on 02/17/17 14:15; Start 02/17/17 at 14:15; Stop 02/17/17 at 14:16 ; Status DC Dextrose 25 ml 25 ml ONCE ONCE IV Last administered on 02/17/17 14:15; Start 02/17/17 at 14:15; Stop 02/17/17 at 14:16; Status DC Calcium Chloride 2 gm/Dextrose 120 ml @ 120 mls/hr ONCE ONCE IV Last administered on 02/17/17 14:15; Start 02/17/17 at 14:15; Stop 02/17/17 at 15:14 ; Status DC Calcium Gluconate/ Sodium Chloride (Calcium Gluconate Inj/NS Inj) 120 ml @ 120 mls/hr ONCE ONCE IV Last administered on 02/18/17 09:56; Start 02/18/17 at 06 :30; Stop 02/18/17 at 07:29; Status DC Sodium Bicarbonate (Sodium Bicarbonate 8.4% Inj) 50 meq ONCE ONCE IV PUSH Last administered on 02/18/17 06:50; Start 02/18/17 at 06:30; Stop 02/18/17 at 06:39; Status DC Cholecalciferol (Vitamin D3) 5,000 units DAILY PO Last administered on 08:58; Start 02/18/17 at 13:00; Stop 02/21/17 at 10:32; Status DC Dextrose (D50w (Vial) Inj) 25 ml UNSCH PRN IV PUSH HYPOGLYCEMIA-SEE COMMENTS; Start 02/18/17 at 19:15 Glucagon (Glucagon Inj) 1 mg UNSCH PRN OTHER HYPOGLYCEMIA-SEE COMMENTS; Start 02/18/17 at 19:15 Insulin Aspart (NovoLOG SUPPLEMENTAL SCALE) 1 ACHS SLIDING SCALE SQ Last administered on 02/21/17 22:07; Start 02/18/17 at 21:00 Hydralazine HCl (Apresoline) 25 mg Q8HR PO Last administered on 02/19/17 20:31 ; Start 02/18/17 at 22:00; Stop 02/19/17 at 20:52; Status DC Clonidine (Catapres) 0.1 mg Q6H PRN PO SYS BP GREATER THAN 160 MMHG Last administered on 02/23/17 23:32; Start 02/18/17 at 19:30 Pantoprazole Sodium 40 mg 40 mg DAILY IV PUSH Last administered on 02/24/17 09 :30; Start 02/19/17 at 10:00 Heparin Sodium/ Dextrose (Heparin-D5W Inj) 250 ml @ 0 mls/hr TITRATE IV Last administered on 02/24/17 11:33; Start 02/19/17 at 17:30 Lorazepam (Ativan) 0.5 mg Q8H PRN PO anxiety Last administered on 02/24/17 06: 24; Start 02/19/17 at 17:45 Hydralazine HCl (Apresoline) 50 mg Q8HR PO Last administered on 02/22/17 14:21 ; Start 02/19/17 at 22:00; Status Hold Hydralazine HCl 20 mg 20 mg ONCE ONCE IV PUSH Last administered on 02/21/17 02:53; Start 02/21/17 at 02:45; Stop 02/21/17 at 02:46; Status DC Calcium Gluconate 1 gm/Sodium Chloride 110 ml @ 110 mls/hr ONCE ONCE IV Last administered on 02/21/17 10:58; Start 02/21/17 at 10:00; Stop 02/21/17 at 10:59 ; Status DC Pharmacy Profile Note (Coumadin Consult Pharmacy) 0 ml @ 0 mls/hr UNSCH OTHER ; Start 02/21/17 at 09:30 Calcitriol (Rocaltrol) 1 mcg DAILY PO Last administered on 02/23/17 08:54; Start 02/22/17 at 09:00; Stop 02/24/17 at 09:05; Status DC Cholecalciferol (Vitamin D3) 5,000 units DAILY PO Last administered on 09:30; Start 02/21/17 at 14:45 Warfarin Sodium (Coumadin) 5 mg DAILY@16 PO Last administered on 02/23/17 16: 22; Start 02/21/17 at 16:00 Patient Medication Teaching (Coumadin Booklet) 1 ONCE ONCE XX Last administered on 02/21/17 16:00; Start 02/21/17 at 16:00; Stop 02/21/17 at 16:01 ; Status DC Warfarin Sodium 2.5 mg 2.5 mg ONCE PO Last administered on 02/22/17 16:00; Start 02/22/17 at 16:00; Stop 02/22/17 at 21:00; Status DC Calcium Gluconate/ Sodium Chloride (Calcium Gluconate Inj/NS Inj) 120 ml @ 120 mls/hr ONCE ONCE IV Last administered on 02/22/17 12:05; Start 02/22/17 at 12 :00; Stop 02/22/17 at 12:59; Status DC Amlodipine Besylate (Norvasc) 10 mg DAILY PO Last administered on 02/24/17 09: 30; Start 02/23/17 at 10:00 Lisinopril (Prinivil) 5 mg DAILY PO Last administered on 02/24/17 09:30; Start 02/23/17 at 13:00 Calcitriol (Rocaltrol) 0.5 mcg DAILY PO Last administered on 02/24/17 09:31; Start 02/25/17 at 09:00 A/P Problem List: (1) Closed fracture of first metacarpal bone of left hand ICD Code: S62.202A Status: Acute (2) Dehydration ICD Code: E86.0 Status: Acute (3) Hyperkalemia ICD Code: E87.5 Status: Acute (4) Morbid obesity with BMI of 45.0-49.9, adult ICD Code: E66.01 Status: Acute (5) Acute on chronic kidney failure ICD Code: N17.9 Status: Resolved Assessment and Plan Acute renal failure - Due to bladder outlet obstruction - Ureteropelvicaliectasis bilaterally - Gates placed in the ED, with improving creat and good UO -Nephrology following, no need for dialysis -Per urologist keep Gates in and patient to follow-up as outpatient. Syncope while on toilet - likely due to hypotension (now resolved) -echo this month showed nml EF, no significant valve abnormality, cont tele Abdominal wall hematoma - left lower abdominal seemed to resolve. - Gen Surgery evaluation-conservative management -Hemoglobin stable. -Continue to monitor. S/p Laparoscopic stone removal on 01/31/[address] Bridges -pathology showed a huge gall stone 5 cm in it's broadest dimension. Anemia of acute blood loss - s/p 2 unit pRBC - Due to above -Hemoglobin stable. - Monitor H&H - Transfuse for hemoglobin below 7. Bladder outlet obstruction - Gates in place - Urology consult - Dr. Ulloa recommends (via RN) that patient should be discharged with gates and followup with him in his office Right arm nonocclusive DVT in the distal right brachial vein -Cleared by general surgery to start anticoagulation. -Currently on a heparin drip bridging to Coumadin. -See treatment as above. Mildly comminuted and slightly displaced fracture through the Left proximal metadiaphysis of the first metacarpal - Ortho consult - Dr. Kuo recommends nonoperative management with thumb spica splint Hypertension -uncontrolled -on hydralazine to 50 mg by mouth 3 times a day -on amlodipine. - Hold lisinopril due to previous hyperkalemia and acute kidney injury - Hydralazine when necessary DM type 2 -continue accucheks with SSI Secondary hyperparathyroidism - cont cacitriol. Hypocalcemia with vitamin D deficiency - cont vitamin D3, calcium replacement. Emesis -RESOLVED (?).I really do not think patient had coffee ground emesis. she denied this herself. -Questionable coffee ground found to days ago. When I asked nurse he stated that he is not aware of this. Per patient and nurse patient did not have any episode. -Continue Protonix. DVT prophylaxis -On heparin Discharge Planning Patient continued to require hospitalization due to patient being on heparin drip transitioning to Coumadin. She does not have a PCP as outpatient and no follow-up in regards to anticoagulation/INR. Unable to use any other anticoagulant that does not require monitoring secondary to renal failure. Dealt with case management in regards to this and she stated that patient needs to call her insurance company to find a PCP. Patient stated she called her insurance and is trying to find a PCP. Patient requests to go home but at the moment it is unsafe for patient to go home. Problem Qualifiers (1) Closed fracture of first metacarpal bone of left hand: Qualified Code: S62.235A - Other closed nondisplaced fracture of base of first metacarpal bone of left hand, initial encounter Jen Rosado MD Feb 24, 2017 14:28
[2017-02-24 16:00] VITALS: BP 102/58; PULSE 76; RESP 16; TEMP 96.1; O2SAT 96
[2017-02-24] MEDS: WARFARIN SOD 5 MG TAB PO SCH (16:09)
[2017-02-24 20:00] VITALS: PULSE 78; RESP 14; TEMP 95.5; O2SAT 96
[2017-02-25] VITALS: BP 199/84; PULSE 79; RESP 20; TEMP 97; O2SAT 98
[2017-02-25] MEDS: ONDANSETRON HCL 4 MG/2 ML VIAL IV PRN (00:36)
[2017-02-25] MEDS: cloNIDine HCL 0.1 MG TAB PO PRN ×4 (00:36→18:11)
[2017-02-25] MEDS: HEPARIN-D5W INJ 250 ML IV SCH (02:55)
[2017-02-25 04:00] VITALS: BP 176/76; PULSE 80; RESP 22; TEMP 98.7; O2SAT 93
[2017-02-25] MEDS: CHLORHEXIDINE GLUCONATE 2 % 1 PACK (2 CLOTHS) TOP SCH (04:00)
[2017-02-25] MEDS: INSULIN ASPART SUPPLEMENTAL SCALE SQ SCH ×4 (07:00→22:40)
[2017-02-25 07:58] LABS: HEMATOCRIT 26.2 % (35.0-46.0); MEAN CELL VOLUME 82.4 FL (80.0-100.0); MEAN CORPUSCULAR HEMOGLOBIN 27.6 PG (27.0-34.0); MEAN CORPUSCULAR HGB CONC 33.5 % (32.0-36.0); PLATELET COUNT 166 TH/MM3 (150-450); RED BLOOD COUNT 3.17 MIL/MM3 (4.00-5.30); RED CELL DISTRIBUTION WIDTH 15.2 % (11.6-17.2); REVIEW FLAG FINAL; WHITE BLOOD COUNT 6.4 TH/MM3 (4.0-11.0)
[2017-02-25 08:00] VITALS: BP 190/86; PULSE 81; RESP 17; TEMP 98.6; O2SAT 96
[2017-02-25 08:33] LABS: INTERNATIONAL NORMALIZED RATIO 4.1 RATIO; PROTHROMBIN TIME - PATIENT 48.5 SEC (9.8-11.6)
[2017-02-25 08:38] LABS: APTT (PATIENT) 114.4 SEC (24.3-30.1)
[2017-02-25] MEDS: DOCUSATE SODIUM 100 MG CAP PO SCH ×2 (09:00→22:39)
[2017-02-25] MEDS: SODIUM CHLORIDE 0.9% FLUSH 10 ML FLUSH SCH ×2 (09:00→22:40)
[2017-02-25] MEDS: CHOLECALCIFEROL (VIT D3) 5000 UNIT CAP PO SCH (09:04)
[2017-02-25] MEDS: LISINOPRIL 5 MG TAB PO SCH (09:04)
[2017-02-25] MEDS: PANTOPRAZOLE SODIUM 40 MG VIAL IV PUSH SCH (09:05)
--- NOTE | 2017-02-25 11:30 | HHI.PR ---
Subjective Remarks Resting in bed without complaint, afebrile overnight Objective Vitals Vital Signs Date Time Temp Pulse Resp B/P Pulse Ox O2 Delivery O2 Flow Rate FiO2 02/25/17 08:00 98.6 81 17 190/86 96 02/25/17 04:00 98.7 80 22 176/76 93 02/25/17 00:00 97.0 79 20 199/84 98 02/24/17 20:00 95.5 78 14 96 02/24/17 16:00 96.1 76 16 102/58 96 02/24/17 12:00 96.7 72 18 170/72 98 I/O 02/24/17 02/24/17 02/24/17 02/25/17 02/25/17 02/25/17 07:00 15:00 23:00 07:00 15:00 23:00 Intake Total 360 ml 204 ml Output Total 800 ml 1000 ml 1000 ml Balance -440 ml -1000 ml 204 ml -1000 ml Intake Oral 360 ml IV Total 204 ml Output Urine Total 800 ml 1000 ml 1000 ml # Bowel Movements 0 Result Diagram: 02/25/17 0735 02/24/17 0606 Objective Remarks GENERAL: This is a well-nourished,Morbidly obese, well-developed patient, in no apparent distress. CARDIOVASCULAR: Regular rate and rhythm without murmurs, gallops, or rubs. RESPIRATORY: Clear to auscultation. Breath sounds equal bilaterally. No wheezes , rales, or rhonchi. GASTROINTESTINAL: Abdomen soft, non-tender, nondistended. Normal active bowel sounds MUSCULOSKELETAL: Extremities without clubbing, cyanosis, or edema. NEURO: Alert & Oriented x4 to person, place, time, situation. Moves all ext x4 A/P Problem List: (1) Closed fracture of first metacarpal bone of left hand ICD Code: S62.202A Status: Acute (2) Dehydration ICD Code: E86.0 Status: Acute (3) Hyperkalemia ICD Code: E87.5 Status: Acute (4) Morbid obesity with BMI of 45.0-49.9, adult ICD Code: E66.01 Status: Acute (5) Acute on chronic kidney failure ICD Code: N17.9 Status: Resolved Assessment and Plan 02/25/17: See to call from the nurse INR is 4.1 today, stop heparin drip, monitor hemoglobin due to recent GI bleed, repeat INR in a.m. Follow BUN over creatinine BMP with nephrology, CBC in a.m. Poorly controlled blood pressure will add clonidine scheduled, patient resumed on lisinopril 5 mg per nephrology A/P: Acute renal failure - Due to bladder outlet obstruction - Ureteropelvicaliectasis bilaterally - Gates placed in the ED, with improving creat and good UO -Nephrology following, no need for dialysis -Per urologist keep Gates in and patient to follow-up as outpatient. Syncope while on toilet -Likely vasovagal -echo this month showed nml EF, no significant valve abnormality, cont tele Abdominal wall hematoma - left lower abdominal seemed to resolve. - Gen Surgery evaluation-conservative management -Hemoglobin stable. -Continue to monitor. S/p Laparoscopic stone removal on 01/31/[address] Bridges -pathology showed a huge gall stone 5 cm in it's broadest dimension. Anemia of acute blood loss - s/p 2 unit pRBC - Due to above -Hemoglobin stable. - Monitor H&H - Transfuse for hemoglobin below 7. Bladder outlet obstruction - Gates in place - Urology consult - Dr. Ulloa recommends (via RN) that patient should be discharged with gates and followup with him in his office Right arm nonocclusive DVT in the distal right brachial vein -Cleared by general surgery to start anticoagulation. -Currently on a heparin drip bridging to Coumadin. -See treatment as above. Mildly comminuted and slightly displaced fracture through the Left proximal metadiaphysis of the first metacarpal - Ortho consult - Dr. Kuo recommends nonoperative management with thumb spica splint Hypertension -uncontrolled -on hydralazine to 50 mg by mouth 3 times a day -on amlodipine. - Hold lisinopril due to previous hyperkalemia and acute kidney injury - Hydralazine when necessary DM type 2 -continue accucheks with SSI Secondary hyperparathyroidism - cont cacitriol. Hypocalcemia with vitamin D deficiency - cont vitamin D3, calcium replacement. Discharge Planning INR is 4.1 today Problem Qualifiers (1) Closed fracture of first metacarpal bone of left hand: Qualified Code: S62.235A - Other closed nondisplaced fracture of base of first metacarpal bone of left hand, initial encounter Jaswinder Neville MD Feb 25, 2017 11:30
[2017-02-25 12:00] VITALS: BP 179/86; PULSE 74; RESP 18; TEMP 97.6; O2SAT 96
--- NOTE | 2017-02-25 12:22 | HHI.NPPN ---
Subjective Complaints: Obesity General Problems: Anemia, Hypertension Renal Failure: Chronic, Acute Additional Remarks Patient is alert, has some nausea, now better, no SOB. Review of Systems Musculoskeletal MS: Pain/Stiffness Objective Data Data 02/24/17 02/25/17 18:59 06:59 Intake Total 204 ml Output Total 1000 ml 1000 ml Balance -796 ml -1000 ml IV Total 204 ml Output Urine Total 1000 ml 1000 ml # Bowel Movements 0 Vital Signs Date Time Temp Pulse Resp B/P Pulse Ox O2 Delivery O2 Flow Rate FiO2 02/25/17 08:00 98.6 81 17 190/86 96 02/25/17 04:00 98.7 80 22 176/76 93 02/25/17 00:00 97.0 79 20 199/84 98 02/24/17 20:00 95.5 78 14 96 02/24/17 16:00 96.1 76 16 102/58 96 -: 02/25/17 0735 02/24/17 0606 Tubes & Lines: Goddard Drip Comment heparin Physical Exam General Appearance: No Acute Distress, Comfortable, Obese Eyes Eye Exam: Pupils Equal, Pupils Reactive Throat Throat Exam: Oral Mucosa [place] & Moist Pulmonary Resp Exam: Clear Bilaterally, Breath Sounds Equal, No Distress, Decreased Bases Cardiology CV Exam: Regular, Normal Sinus Rhythm, Good Perfusion Gastrointestinal/Abdomen GI Exam: Soft, Non-Tender, Bowel Sounds Present Musculoskeletal MS Exam: Joints Intact, Normal Tone Integumentary Skin Exam: Clear, Warm, Dry, Intact Extremeties Extremities Exam: Moderate Edema Neurologic Neuro Exam: Alert, Awake, Oriented, Speech Clear, Moving All Extremities Psychiatric Psych Exam: Appropriate Responses VTE Prophylaxis Device: SCDs Assessment/Plan Discussed Condition With: Patient Assessment Summary: [place]/Acute Renal Failure, [place] Hyperparathyroid Electrolyte Assessment: Hyperkalemia, Hypocalcemia Problem List: (1) Acute on chronic kidney failure Plan: Likely has underlying diabetic nephropathy baseline creatinine from 2013 2.08; at discharge earlier this month cr 2.08 she came in with obstructive uropathy, Goddard was placed excellent urine output continued improvement in renal function to follow up with urology after discharge, to be d/c with Goddard off IVF; tolerating oral fluids avoid nephrotoxins Creatinine was better yesterday. BP is elevated, started on Lisinopril yesterday, if BP remain elevated, can increase the dose. (2) Hyperkalemia Plan: Due to diminished renal excretion corrected (3) Secondary hyperparathyroidism (of renal origin) Plan: calcium improving, on calcitriol, reduce to 0.5 mcg daily severely vit D deficient; also on oral Vitamin D she has been given IV calcium gluconate continue calcitriol at discharge; it was not on home medication list at time of readmission (4) Closed fracture of first metacarpal bone of left hand Plan: non surgical management (5) Syncope Plan: work up per admitting team (6) DVT (deep venous thrombosis) Plan: on heparin drip Coumadin was started, follow INR; will be maintained on therapy x 3 months (7) Anemia Plan: no evidence of iron deficiency she was given 2 units PRBC since admission, has hematoma left abdomen from fall (8) Hypertension Plan: on amlodipine, lisinopril resumed monitor blood pressure PRN clonidine Problem Qualifiers (1) Closed fracture of first metacarpal bone of left hand: Qualified Code: S62.235A - Other closed nondisplaced fracture of base of first metacarpal bone of left hand, initial encounter Eloina Villa MD Feb 25, 2017 12:22
[2017-02-25 16:00] VITALS: BP 172/84; PULSE 71; RESP 18; TEMP 97.8; O2SAT 95
[2017-02-25 20:00] VITALS: BP 190/81; PULSE 86; RESP 24; TEMP 95.9; O2SAT 98
[2017-02-26] VITALS (7 sets, daily range): BP systolic 162–181; BP diastolic 74–79; PULSE 71–90; RESP 18–24; TEMP 96.6–97.7; O2SAT 97–98
[2017-02-26] MEDS: LORazepam 0.5 MG TAB PO PRN (01:51)
[2017-02-26] MEDS: CHLORHEXIDINE GLUCONATE 2 % 1 PACK (2 CLOTHS) TOP SCH (03:30)
[2017-02-26] MEDS: cloNIDine HCL 0.1 MG TAB PO PRN ×2 (05:56→13:02)
[2017-02-26] MEDS: INSULIN ASPART SUPPLEMENTAL SCALE SQ SCH ×3 (06:02→16:00)
[2017-02-26] MEDS: DOCUSATE SODIUM 100 MG CAP PO SCH (09:00)
[2017-02-26] MEDS: SODIUM CHLORIDE 0.9% FLUSH 10 ML FLUSH SCH (09:00)
[2017-02-26] MEDS: CALCITRIOL 0.25 MCG CAP PO SCH (09:34)
[2017-02-26] MEDS: PANTOPRAZOLE SODIUM 40 MG VIAL IV PUSH SCH (09:34)
[2017-02-26] MEDS: CHOLECALCIFEROL (VIT D3) 5000 UNIT CAP PO SCH (09:35)
[2017-02-26] MEDS: LISINOPRIL 5 MG TAB PO SCH (09:35)
[2017-02-26 09:45] LABS: APTT (PATIENT) 45.1 SEC (24.3-30.1); INTERNATIONAL NORMALIZED RATIO 3.7 RATIO; PROTHROMBIN TIME - PATIENT 42.8 SEC (9.8-11.6)
[2017-02-26] MEDS ORDERED: AMLO10 PO (11:59)
[2017-02-26] MEDS ORDERED: COUM5TAB PO (11:59)
[2017-02-26] MEDS ORDERED: LISI-519 PO (11:59)
--- NOTE | 2017-02-26 12:00 | HHI.FF ---
Face to Face Verification Diagnosis: (1) Neurogenic bladder (2) Diabetes mellitus (3) Hydronephrosis, bilateral (4) Urinary tract infection Physical Therapy Order: Evaluate and Treat Occupational Therapy Order: Evaluate and Treat Home Health Nursing Order: Medical education Diabetic education Nursing assessment with vital signs Goddard catheter maintenance I have seen patient Tejas Marie on 02/26/17. My clinical findings support the need for the requested home health care services because: Ltd mobility - disease progression I certify that my clinical findings support that this patient is homebound because: Unsteady gait/balance Unsafe to leave home unassisted Jaswinder Neville MD Feb 26, 2017 12:00
--- NOTE | 2017-02-26 12:14 | HHI.DS ---
Discharge Summary Admission Date Feb 16, 2017 at 18:13 Discharge Date: Feb 26, 2017 Admitting Diagnosis acute renal failure, hyperkalemia, hypocalcemia, anemia, hematoma (1) Closed fracture of first metacarpal bone of left hand ICD Code: S62.202A Diagnosis: Principal (2) Dehydration ICD Code: E86.0 (3) Hyperkalemia ICD Code: E87.5 (4) Morbid obesity with BMI of 45.0-49.9, adult ICD Code: E66.01 (5) Acute on chronic kidney failure ICD Code: N17.9 Procedures see below Brief History - From Admission 51-year-old morbidly obese female came with history of syncopal episode and fall while the patient was on the toilet. She was having a bowel movement when she got nauseous. She vomited some bilious material and face caused her to become lightheaded and passed out. She fell with her left arm extended and her hand is hurting. She denies hitting her head. When EMS arrived the blood pressure was 66/44. In the emergency department her blood pressure was improved. Patient is awake and answering questions appropriately. She is oriented 3. Patient had a surgery in this institution couple weeks ago. CBC/BMP: 02/25/17 0735 02/24/17 0606 Significant Findings Laboratory Tests Test 02/23/17 02/23/17 02/24/17 02/24/17 16:19 22:58 06:06 06:10 Activated Partial 52.3 SEC 55.5 SEC 71.4 SEC Thromboplast Time (24.3-30.1) (24.3-30.1) (24.3-30.1) Red Blood Count 3.54 MIL/MM3 (4.00-5.30) Hemoglobin 9.8 GM/DL (11.6-15.3) Hematocrit 29.5 % (35.0-46.0) Carbon Dioxide Level 20.1 MEQ/L (21.0-32.0) Blood Urea Nitrogen 26 MG/DL (7-18) Creatinine 2.14 MG/DL (0.50-1.00) Estimat Glomerular Filtration 24 ML/MIN (>89) Rate Calcium Level 7.7 MG/DL (8.5-10.1) Albumin 2.4 GM/DL (3.4-5.0) Test 02/25/17 02/25/17 02/26/17 07:35 12:55 08:14 Red Blood Count 3.17 MIL/MM3 (4.00-5.30) Hemoglobin 8.8 GM/DL (11.6-15.3) Hematocrit 26.2 % (35.0-46.0) Prothrombin Time 48.5 SEC 42.8 SEC (9.8-11.6) (9.8-11.6) Activated Partial 114.4 SEC 40.0 SEC 45.1 SEC Thromboplast Time (24.3-30.1) (24.3-30.1) (24.3-30.1) PE at Discharge GENERAL: This is a well-nourished,Morbidly obese, well-developed patient, in no apparent distress. CARDIOVASCULAR: Regular rate and rhythm without murmurs, gallops, or rubs. RESPIRATORY: Clear to auscultation. Breath sounds equal bilaterally. No wheezes , rales, or rhonchi. GASTROINTESTINAL: Abdomen soft, non-tender, nondistended. Normal active bowel sounds MUSCULOSKELETAL: Extremities without clubbing, cyanosis, or edema. NEURO: Alert & Oriented x4 to person, place, time, situation. Moves all ext x4 Hospital Course 51 Years old male admitted Acute renal failure, syncope, abdominal wall hematoma Renal failure mostly Due to bladder outlet obstruction Ureteropelvicaliectasis bilaterally Gates placed in the ED, with improving creat and good UO Nephrology consulted, no need for dialysis, creatinine gradually improved Per urologist keep Gates in and patient to followup as outpatient. Syncope while on toilet Likely vasovagal echo this month showed nml EF, no significant valve abnormality, cont tele Abdominal wall hematoma - left lower abdominal seemed to resolve. Gen Surgery evaluationconservative management Hemoglobin stable. Continue to monitor. S/p Laparoscopic stone removal on 01/31/[address] Bridges pathology showed a huge gall stone 5 cm in it's broadest dimension. Anemia of acute blood loss s/p 2 unit pRBC Due to above Hemoglobin stable. Monitor H&H Transfuse for hemoglobin below 7. Bladder outlet obstruction Gates in place Urology consult - Dr. Ulloa recommends (via RN) that patient should be discharged with gates and followup with him in his office Right arm nonocclusive DVT in the distal right brachial vein Cleared by general surgery to start anticoagulation. Started on a heparin drip bridging to Coumadin. On 02/25 Coumadin was found to be 4.2, health Coumadin next day was 3.7 continue holding until less than 3 will check INR next day after discharge Mildly comminuted and slightly displaced fracture through the Left proximal metadiaphysis of the first metacarpal Ortho consult - Dr. Kuo recommends nonoperative management with thumb spica splint Hypertension uncontrolled on hydralazine to 50 mg by mouth 3 times a day on amlodipine. Initially Hold lisinopril due to previous hyperkalemia and acute kidney injury, then restarted at discharge with increasing dose, to be adjusted as an outpatient Hydralazine when necessary DM type 2 well controlled on no oral agents or insulin continue accucheks with SSI Secondary hyperparathyroidism - cont cacitriol. Hypocalcemia with vitamin D deficiency cont vitamin D3, calcium replacement. [id number] encounter performed with the patient on discharge day, as well as physical exam, summary of hospitalization course and postdischarge plan has been D/W the patient. D/W nurse D/W egg caser. Discharge medications reviewed and printed and signed, post discharge follow up visit with PCP and other specialist as well as Brief hospital course and discharge summary has been placed. Pt Condition on Discharge: Fair Discharge Disposition: Disch w/ Home Health Serv Discharge Time: > 30 minutes Discharge Instructions DIET: Follow Instructions for: Heart Healthy Diet, Diabetic Diet Activities you can perform: See Additionl Instruction Other Activity Instructions: per PT w [facility] Follow up Referrals: Nephrology - 1 Week with Eloina Villa MD Surgical - 2 Weeks with Eduardo Bridges MD Urology - 1 Week with Willie Ulloa MD New Orders: PT/INR - Next Day New Medications: Amlodipine (Norvasc) 10 Mg Tab 10 MG PO DAILY htn #30 TAB Lisinopril (Lisinopril) 5 Mg Tab 10 MG PO BID htn #60 TAB Warfarin (Coumadin) 5 Mg Tab 5 MG PO DAILY@16 dvt #30 TAB Jaswinder Neville MD Feb 26, 2017 12:14
--- NOTE | 2017-02-26 13:07 | HHI.NPPN ---
Subjective Complaints: Obesity General Problems: Anemia, Hypertension Renal Failure: Chronic, Acute Additional Remarks Patient is alert, clinically same, no complain. Review of Systems Musculoskeletal MS: Pain/Stiffness Objective Data Data 02/25/17 02/26/17 19:00 07:00 Intake Total 1500 ml Output Total 1000 ml 2200 ml Balance -1000 ml -700 ml Intake Oral 1500 ml Output Urine Total 1000 ml 2200 ml Vital Signs Date Time Temp Pulse Resp B/P Pulse Ox O2 Delivery O2 Flow Rate FiO2 02/26/17 12:00 96.6 71 18 181/78 98 02/26/17 08:01 82 02/26/17 08:00 96.7 78 18 172/74 98 02/26/17 04:00 96.7 84 24 170/74 97 02/26/17 02:28 77 02/26/17 00:00 97.7 90 20 180/79 97 02/25/17 20:00 95.9 86 24 190/81 98 02/25/17 16:00 97.8 71 18 172/84 95 -: 02/25/17 0735 02/24/17 0606 Tubes & Lines: Goddard Drip Comment heparin Physical Exam General Appearance: No Acute Distress, Comfortable, Obese Eyes Eye Exam: Pupils Equal, Pupils Reactive Throat Throat Exam: Oral Mucosa [place] & Moist Pulmonary Resp Exam: Clear Bilaterally, Breath Sounds Equal, No Distress, Decreased Bases Cardiology CV Exam: Regular, Normal Sinus Rhythm, Good Perfusion Gastrointestinal/Abdomen GI Exam: Soft, Non-Tender, Bowel Sounds Present Musculoskeletal MS Exam: Joints Intact, Normal Tone Integumentary Skin Exam: Clear, Warm, Dry, Intact Extremeties Extremities Exam: Moderate Edema Neurologic Neuro Exam: Alert, Awake, Oriented, Speech Clear, Moving All Extremities Psychiatric Psych Exam: Appropriate Responses VTE Prophylaxis Device: SCDs Assessment/Plan Discussed Condition With: Patient Assessment Summary: SHELLEY/Acute Renal Failure, [place] Hyperparathyroid Electrolyte Assessment: Hyperkalemia, Hypocalcemia Problem List: (1) Acute on chronic kidney failure Plan: Likely has underlying diabetic nephropathy baseline creatinine from 2013 2.08; at discharge earlier this month cr 2.08 she came in with obstructive uropathy, Goddard was placed excellent urine output continued improvement in renal function to follow up with urology after discharge, to be d/c with Goddard off IVF; tolerating oral fluids avoid nephrotoxins Creatinine was better yesterday. BP is elevated, Lisinopril increased to 10 mg BID. Follow BUN/Creatinine and K level. (2) Hyperkalemia Plan: Due to diminished renal excretion corrected (3) Secondary hyperparathyroidism (of renal origin) Plan: calcium improving, on calcitriol, reduce to 0.5 mcg daily severely vit D deficient; also on oral Vitamin D she has been given IV calcium gluconate continue calcitriol at discharge; it was not on home medication list at time of readmission (4) Closed fracture of first metacarpal bone of left hand Plan: non surgical management (5) Syncope Plan: work up per admitting team (6) DVT (deep venous thrombosis) Plan: on heparin drip Coumadin was started, follow INR; will be maintained on therapy x 3 months (7) Anemia Plan: no evidence of iron deficiency she was given 2 units PRBC since admission, has hematoma left abdomen from fall (8) Hypertension Plan: on amlodipine, lisinopril increased. monitor blood pressure PRN clonidine Problem Qualifiers (1) Closed fracture of first metacarpal bone of left hand: Qualified Code: S62.235A - Other closed nondisplaced fracture of base of first metacarpal bone of left hand, initial encounter Eloina Villa MD Feb 26, 2017 13:07
--- NOTE | 2017-02-26 14:38 | HHI.PR ---
Subjective Remarks Stable no acute issue INR 3.7 today Patient denied complain I advised her to hold Coumadin today and repeat INR in a.m. after discharge Objective Vitals Vital Signs Date Time Temp Pulse Resp B/P Pulse Ox O2 Delivery O2 Flow Rate FiO2 02/26/17 12:00 96.6 71 18 181/78 98 02/26/17 08:01 82 02/26/17 08:00 96.7 78 18 172/74 98 02/26/17 04:00 96.7 84 24 170/74 97 02/26/17 02:28 77 02/26/17 00:00 97.7 90 20 180/79 97 02/25/17 20:00 95.9 86 24 190/81 98 02/25/17 16:00 97.8 71 18 172/84 95 I/O 02/25/17 02/25/17 02/25/17 02/26/17 02/26/17 02/26/17 07:00 15:00 23:00 07:00 15:00 23:00 Intake Total 780 ml 720 ml Output Total 1000 ml 2200 ml 1000 ml 900 ml Balance -1000 ml -1420 ml -280 ml -900 ml Intake Oral 780 ml 720 ml Output Urine Total 1000 ml 2200 ml 1000 ml 900 ml Result Diagram: 02/25/17 0735 02/24/17 0606 Objective Remarks GENERAL: This is a well-nourished,Morbidly obese, well-developed patient, in no apparent distress. CARDIOVASCULAR: Regular rate and rhythm without murmurs, gallops, or rubs. RESPIRATORY: Clear to auscultation. Breath sounds equal bilaterally. No wheezes , rales, or rhonchi. GASTROINTESTINAL: Abdomen soft, non-tender, nondistended. Normal active bowel sounds MUSCULOSKELETAL: Extremities without clubbing, cyanosis, or edema. NEURO: Alert & Oriented x4 to person, place, time, situation. Moves all ext x4 Procedures see below A/P Problem List: (1) Closed fracture of first metacarpal bone of left hand ICD Code: S62.202A Status: Acute (2) Dehydration ICD Code: E86.0 Status: Acute (3) Hyperkalemia ICD Code: E87.5 Status: Acute (4) Morbid obesity with BMI of 45.0-49.9, adult ICD Code: E66.01 Status: Acute (5) Acute on chronic kidney failure ICD Code: N17.9 Status: Resolved Assessment and Plan 02/25/17: See to call from the nurse INR is 4.1 today, stop heparin drip, monitor hemoglobin due to recent GI bleed, repeat INR in a.m. Follow BUN over creatinine BMP with nephrology, CBC in a.m. Poorly controlled blood pressure will add clonidine scheduled, patient resumed on lisinopril 5 mg per nephrology 02/26: INR 3.7 today, continue holding Coumadin she stable for discharge PT INR in a.m. A/P: Acute renal failure - Due to bladder outlet obstruction - Ureteropelvicaliectasis bilaterally - Gates placed in the ED, with improving creat and good UO -Nephrology following, no need for dialysis -Per urologist keep Gates in and patient to follow-up as outpatient. Syncope while on toilet -Likely vasovagal -echo this month showed nml EF, no significant valve abnormality, cont tele Abdominal wall hematoma - left lower abdominal seemed to resolve. - Gen Surgery evaluation-conservative management -Hemoglobin stable. -Continue to monitor. S/p Laparoscopic stone removal on 01/31/[address] Bridges -pathology showed a huge gall stone 5 cm in it's broadest dimension. Anemia of acute blood loss - s/p 2 unit pRBC - Due to above -Hemoglobin stable. - Monitor H&H - Transfuse for hemoglobin below 7. Bladder outlet obstruction - Gates in place - Urology consult - Dr. Ulloa recommends (via RN) that patient should be discharged with gates and followup with him in his office Right arm nonocclusive DVT in the distal right brachial vein -Cleared by general surgery to start anticoagulation. -Currently on a heparin drip bridging to Coumadin. -See treatment as above. Mildly comminuted and slightly displaced fracture through the Left proximal metadiaphysis of the first metacarpal - Ortho consult - Dr. Kuo recommends nonoperative management with thumb spica splint Hypertension -uncontrolled -on hydralazine to 50 mg by mouth 3 times a day -on amlodipine. - Hold lisinopril due to previous hyperkalemia and acute kidney injury - Hydralazine when necessary DM type 2 -continue accucheks with SSI Secondary hyperparathyroidism - cont cacitriol. Hypocalcemia with vitamin D deficiency - cont vitamin D3, calcium replacement. Discharge Planning INR is 4.1 today Problem Qualifiers (1) Closed fracture of first metacarpal bone of left hand: Qualified Code: S62.235A - Other closed nondisplaced fracture of base of first metacarpal bone of left hand, initial encounter Jaswinder Neville MD Feb 26, 2017 14:38
[2017-02-26] MEDS ORDERED: LISINOPRIL 5 MG TAB PO SCH (21:00)
[2017-03-30] MEDS ORDERED: LISI2.5T3 PO (14:02)
[2017-03-30] MEDS ORDERED: NEUR100C PO (15:30)
[2017-04-05] MEDS ORDERED: BACT400T PO (10:54)
[2017-04-05] MEDS ORDERED: BETH25TA2 PO (10:54)
[2017-04-21] MEDS ORDERED: COUM5TAB PO (16:59)
== END 2017-02-26 16:44 | disposition home health service (06) | DRG 683 ==
LOC: NEPC 12:24 → NEDA 18:13 → HIMW 22:30 → N05A 02-21 20:05
PROVIDERS: ADMIT Emergency Medicine; ATTEND Hospitalist
PROC: 30233N1 Transfusion of Nonautologous Red Blood Cells into Peripheral Vein, Percutaneous Approach (ICD-10-PCS; principal; 2017-02-16)
DX: N17.9 Acute kidney failure, unspecified (principal); D62 Acute posthemorrhagic anemia; E11.21 Type 2 diabetes mellitus with diabetic nephropathy; E87.2 Acidosis; E11.22 Type 2 diabetes mellitus with diabetic chronic kidney disease; I82.621 Acute embolism and thrombosis of deep veins of right upper extremity; I95.9 Hypotension, unspecified; Z68.42 Body mass index [BMI] 45.0-49.9, adult; K31.84 Gastroparesis; E55.9 Vitamin D deficiency, unspecified; E87.5 Hyperkalemia; R55 Syncope and collapse; I12.9 Hypertensive chronic kidney disease with stage 1 through stage 4 chronic kidney disease, or unspecified chronic kidney disease; E86.0 Dehydration; S62.292A Other fracture of first metacarpal bone, left hand, initial encounter for closed fracture; E83.51 Hypocalcemia; N32.0 Bladder-neck obstruction; N25.81 Secondary hyperparathyroidism of renal origin; S30.1XXA Contusion of abdominal wall, initial encounter; F79 Unspecified intellectual disabilities; J45.909 Unspecified asthma, uncomplicated; E11.43 Type 2 diabetes mellitus with diabetic autonomic (poly)neuropathy; E66.01 Morbid (severe) obesity due to excess calories; N18.4 Chronic kidney disease, stage 4 (severe); N13.2 Hydronephrosis with renal and ureteral calculous obstruction; W18.11XA Fall from or off toilet without subsequent striking against object, initial encounter; Y92.002 Bathroom of unspecified non-institutional (private) residence as the place of occurrence of the external cause; Z88.5 Allergy status to narcotic agent; Z88.8 Allergy status to other drugs, medicaments and biological substances
CPT/HCPCS: 36430; 71010; 73120; 73130; 74176; 76937; 80048; 80053; 80069; 81001; 82140; 82306; 82550; 82948; 83540; 83550; 83605; 83735; 83970; 84100; 84155; 84484; 85025; 85027; 85610; 85730; 86850; 86900; 86901; 86920; 87040; 87086; 87641; 93005; 93971; 99292; C9113; J0360; J0610; J1644; J1815; J2060; J2270; J2405; J2765; J7030; J7050; L3808; P9016

== ENCOUNTER 2017-02-27 20:05 | Inpatient (IN) | payer MEDICAID ==
[~2017-02-27] VITALS: Ht 170.2 cm; Wt 155.0 kg
[~2017-02-27 20:05] MED LIST changes: +AMLO10 PO; +COUM5TAB PO; +LISI-519 PO
[2017-02-27 20:13] VITALS: BP 130/64; PULSE 85; RESP 18; TEMP 98.6; O2SAT 100
--- NOTE | 2017-02-27 20:34 | PD ---
HPI Chief Complaint: General Weakness Time Seen by Provider: 20:27 Travel History International Travel<30 days: No Contact w/Intl Traveler<30days: No Traveled to known affect area: No History of Present Illness HPI Patient is a 51-year-old morbidly obese female presented to the emergency department due to inability to ambulate due to weakness in her legs from being bedbound. Patient states she was discharged from the hospital yesterday, she states that she was supposed to have home health but no one came out to evaluate her. She states that she laid in bed all day and then eventually was able to swing her legs to the side and since that resting them on an ottoman. She did not get up to go to the bathroom at all today. Patient has a Goddard catheter due to bladder outlet obstruction. She denies any other new complaints today. She states that she needs rehabilitation for physical therapy. PFSH Past Medical History Hx Anticoagulant Therapy: Yes (on Coumadin) Anemia: Yes (IRON DEFICIENCY) Arthritis: Yes Asthma: Yes Anxiety: Yes Depression: Yes Cancer: No Cardiovascular Problems: No Developmental Delay: Yes Diabetes: Yes Patient Takes Glucophage: No Diminished Hearing: No Deep Vein Thrombosis: Yes (right brachial) Gastrointestinal Disorders: Yes (gastroparesis) GERD: Yes Gout: Yes Headaches: Yes Hypertension: Yes Immune Disorder: No Kidney Stones: Yes Neurologic: Yes (NEUROPATHY) Psychiatric: Yes ("i have mental problems but I don't know what they are") Migraines: Yes Pneumonia: Yes Seizures: No Sickle Cell Disease: No ?: Not Menopausal: Yes Past Surgical History AICD: No Arteriovenous Shunt: No Cholecystectomy: Yes Genitourinary Surgery: Yes (LITHOTRIPSY) Insulin Pump: No Joint Replacement: No Pacemaker: No Tonsillectomy: Yes Social History Alcohol Use: No Tobacco Use: No Substance Use: No Allergies-Medications (Allergen,Severity, Reaction): Coded Allergies: Sinequan (Verified Allergy, Severe, HIVES, 09/05/14) Codeine (Verified Adverse Reaction, Severe, NAUSEA/VOMITING, 09/05/14) *MDRO Multi-Drug Resistant Organism (Unverified Adverse Reaction, Unknown , 02/17/17) MRSA (foot) - 06/29/11, 08/04/11 MRSA PCR Screen POSITIVE 02/17/17 Reported Meds & Prescriptions Reported Meds & Active Scripts Active Coumadin (Warfarin) 5 Mg Tab 5 Mg PO DAILY@16 Lisinopril 5 Mg Tab 10 Mg PO BID Norvasc (Amlodipine Besylate) 10 Mg Tab 10 Mg PO DAILY Cameron (Hydrocodone-Acetaminophen) 5-325 mg Tab 1 Tab PO Q6H PRN Rocaltrol (Calcitriol) 0.25 Mcg Cap 0.5 Mcg PO DAILY Lisinopril 2.5 Mg Tab 2.5 Mg PO DAILY Cipro (Ciprofloxacin HCl) 500 Mg Tab 500 Mg PO Q12HR Review of Systems Except as stated in HPI: all other systems reviewed are Neg HENT: No: Headaches Cardiovascular: No: Chest Pain or Discomfort Respiratory: No: Cough, Shortness of Breath Gastrointestinal: No: Nausea, Abdominal Pain Genitourinary: Positive: Other (urinary catheter) Neurologic: Positive: Weakness (legs) Physical Exam Narrative GENERAL: Obese, well-developed, alert female. Appears older than stated age. SKIN: Focused skin assessment warm/dry. HEAD: Atraumatic. Normocephalic. EYES: Pupils equal and round. No scleral icterus. No injection or drainage. ENT: No nasal bleeding or discharge. Mucous membranes pink and moist. NECK: Trachea midline. No JVD. CARDIOVASCULAR: Regular rate and rhythm. No murmur appreciated. RESPIRATORY: No accessory muscle use. Clear to auscultation. Breath sounds equal bilaterally. GASTROINTESTINAL: Abdomen obese, soft, non-tender, nondistended. Hepatic and splenic margins not palpable. Right lower quadrant a 3 cm firm subcutaneous mass MUSCULOSKELETAL: No obvious deformities. No clubbing. No cyanosis. No edema. NEUROLOGICAL: Awake and alert. No obvious cranial nerve deficits. Motor grossly within normal limits. Normal speech. PSYCHIATRIC: Appropriate mood and affect; insight and judgment normal. Data Data Last Documented VS Vital Signs Date Time Temp Pulse Resp B/P Pulse Ox O2 Delivery O2 Flow Rate FiO2 02/27/17 20:13 98.6 85 18 130/64 100 Orders Complete Blood Count With Diff (02/27/17 20:25) Comprehensive Metabolic Panel (02/27/17 20:25) Prothrombin Time / Inr (Pt) (02/27/17 20:25) Act Partial Throm Time (Ptt) (02/27/17 20:25) Urinalysis - C+S If Indicated (02/27/17 20:25) Urinary Catheter Insert/Apply (02/27/17 20:25) Cath For Specimen (02/27/17 20:25) Urine Culture (02/27/17 20:39) Place In Observation (02/27/17 ) Vital Signs (Adult) Q4H (02/27/17 22:08) Activity Oob With Assistance (02/27/17 22:08) Financial Sales Manager / Telemetry .CONTINUOUS (02/27/17 22:08) Diet Heart Healthy (02/28/17 Breakfast) Sodium Chloride 0.9% Flush (Ns Flush) (02/27/17 22:15) Sodium Chloride 0.9% Flush (Ns Flush) (02/28/17 09:00) Pt Request For Service (02/27/17 22:08) Case Management Consult (02/27/17 22:08) Naloxone Inj (Narcan Inj) (02/27/17 22:15) Admit Order (Ed Use Only) (02/27/17 22:09) Labs Laboratory Tests Test 02/27/17 20:39 White Blood Count 6.8 TH/MM3 Red Blood Count 3.46 MIL/MM3 Hemoglobin 9.4 GM/DL Hematocrit 28.9 % Mean Corpuscular Volume 83.5 FL Mean Corpuscular Hemoglobin 27.3 PG Mean Corpuscular Hemoglobin 32.7 % Concent Red Cell Distribution Width 15.4 % Platelet Count 204 TH/MM3 Mean Platelet Volume 10.5 FL Neutrophils (%) (Auto) 66.8 % Lymphocytes (%) (Auto) 17.9 % Monocytes (%) (Auto) 10.5 % Eosinophils (%) (Auto) 4.1 % Basophils (%) (Auto) 0.7 % Neutrophils # (Auto) 4.6 TH/MM3 Lymphocytes # (Auto) 1.2 TH/MM3 Monocytes # (Auto) 0.7 TH/MM3 Eosinophils # (Auto) 0.3 TH/MM3 Basophils # (Auto) 0.0 TH/MM3 CBC Comment DIFF FINAL Differential Comment Prothrombin Time 43.1 SEC Prothromb Time International 3.7 RATIO Ratio Activated Partial 45.4 SEC Thromboplast Time Urine Color YELLOW Urine Turbidity HAZY Urine pH 6.5 Urine Specific Steele 1.011 Urine Protein 300 mg/dL Urine Glucose (UA) NEG mg/dL Urine Ketones NEG mg/dL Urine Occult Blood MOD Urine Nitrite NEG Urine Bilirubin NEG Urine Urobilinogen LESS THAN 2.0 MG/DL Urine Leukocyte Esterase LARGE Urine RBC 7 /hpf Urine WBC 42 /hpf Urine Squamous Epithelial 2 /hpf Cells Urine Bacteria MANY /hpf Microscopic Urinalysis Comment CATH-CULTURE IND Sodium Level 140 MEQ/L Potassium Level 3.7 MEQ/L Chloride Level 106 MEQ/L Carbon Dioxide Level 21.3 MEQ/L Anion Gap 13 MEQ/L Blood Urea Nitrogen 31 MG/DL Creatinine 2.30 MG/DL Estimat Glomerular Filtration 22 ML/MIN Rate Random Glucose 160 MG/DL Calcium Level 8.3 MG/DL Total Bilirubin 0.3 MG/DL Aspartate Amino Transf 12 U/L (AST/SGOT) Alanine Aminotransferase 10 U/L (ALT/SGPT) Alkaline Phosphatase 47 U/L Total Protein 7.4 GM/DL Albumin 2.5 GM/DL MDM Medical Decision Making Medical Screen Exam Complete: Yes Emergency Medical Condition: Yes Interpretation(s) Vital Signs Date Time Temp Pulse Resp B/P Pulse Ox O2 Delivery O2 Flow Rate FiO2 02/27/17 20:13 98.6 85 18 130/64 100 Differential Diagnosis Deconditioning versus morbid obesity versus malnutrition versus acute renal failure versus urinary tract infection versus other Narrative Course Patient is a 51-year-old female presented to the emergency department for rehabilitation placement. Patient was discharged from the hospital yesterday, she is been unable to ambulate since she's been discharged. She got home initially EMS was able to help her to the bathroom, she then went to bed and was only able to swing her legs onto an ottoman in her bed today. She has no other complaints at this time. Labs ordered and pending Patient refused urinary catheter to be changed out and replaced Care of patient transferred to my attending physician at the end of my shift. He will determine patient's disposition Ruma Vicente Feb 27, 2017 20:34
[2017-02-27 21:08] LABS: AUTOMATED NEUTROPHIL # 4.6 TH/MM3 (1.8-7.7); BASOPHIL % 0.7 % (0.0-2.0); EOSINOPHIL # 0.3 TH/MM3 (0-0.4); EOSINOPHIL % 4.1 % (0.0-4.0); HEMATOCRIT 28.9 % (35.0-46.0); HEMO FLAGS DIFF FINAL; LYMPH % 17.9 % (9.0-44.0); LYMPHOCYTE # 1.2 TH/MM3 (1.0-4.8); MEAN CELL VOLUME 83.5 FL (80.0-100.0); MEAN CORPUSCULAR HEMOGLOBIN 27.3 PG (27.0-34.0); MEAN CORPUSCULAR HGB CONC 32.7 % (32.0-36.0); MONO % 10.5 % (0.0-8.0); NEUT % 66.8 % (16.0-70.0); PLATELET COUNT 204 TH/MM3 (150-450); RED BLOOD COUNT 3.46 MIL/MM3 (4.00-5.30); RED CELL DISTRIBUTION WIDTH 15.4 % (11.6-17.2); WHITE BLOOD COUNT 6.8 TH/MM3 (4.0-11.0)
[2017-02-27 21:12] LABS: BACTERIA, URINE MANY /hpf; BLOOD, URINE MOD (NEG); GLUCOSE,URINE NEG (NEG); KETONE, URINE NEG (NEG); NITRITE,URINE NEG (NEG); PH, URINE 6.5 (5.0-8.5); SQUAMOUS EPITHELIAL CELL URINE 2 /hpf (0-5); URINE COLOR YELLOW (YELLW/STRAW)
[2017-02-27 21:14] LABS: COMMENT (UR) CATH-CULTURE IND; CULTURE IF INDICATED CATH CULTURE IND
[2017-02-27 21:27] LABS: ANION GAP 13 MEQ/L (5-15); AST (GOT) 12 U/L (15-37); BICARBONATE 21.3 MEQ/L (21.0-32.0); BLOOD UREA NITROGEN 31 MG/DL (7-18); CHLORIDE 106 MEQ/L (98-107); GLOMERULAR FILTRATION RATE 22 ML/MIN (>89); POTASSIUM 3.7 MEQ/L (3.5-5.1); SODIUM (NA) 140 MEQ/L (136-145)
[2017-02-27 21:29] LABS: APTT (PATIENT) 45.4 SEC (24.3-30.1); INTERNATIONAL NORMALIZED RATIO 3.7 RATIO; PROTHROMBIN TIME - PATIENT 43.1 SEC (9.8-11.6)
[2017-02-27 21:30] LABS: ALKALINE PHOSPHATASE 47 U/L (45-117); ALT (GPT) 10 U/L (10-53); TOTAL BILIRUBIN ADULT 0.3 MG/DL (0.2-1.0)
--- NOTE | 2017-02-27 22:03 | PD ---
Data Data Last Documented VS Vital Signs Date Time Temp Pulse Resp B/P Pulse Ox O2 Delivery O2 Flow Rate FiO2 02/27/17 20:13 98.6 85 18 130/64 100 Orders Complete Blood Count With Diff (02/27/17 20:25) Comprehensive Metabolic Panel (02/27/17 20:25) Prothrombin Time / Inr (Pt) (02/27/17 20:25) Act Partial Throm Time (Ptt) (02/27/17 20:25) Urinalysis - C+S If Indicated (02/27/17 20:25) Urinary Catheter Insert/Apply (02/27/17 20:25) Cath For Specimen (02/27/17 20:25) Urine Culture (02/27/17 20:39) Labs Laboratory Tests Test 02/27/17 20:39 White Blood Count 6.8 TH/MM3 Red Blood Count 3.46 MIL/MM3 Hemoglobin 9.4 GM/DL Hematocrit 28.9 % Mean Corpuscular Volume 83.5 FL Mean Corpuscular Hemoglobin 27.3 PG Mean Corpuscular Hemoglobin 32.7 % Concent Red Cell Distribution Width 15.4 % Platelet Count 204 TH/MM3 Mean Platelet Volume 10.5 FL Neutrophils (%) (Auto) 66.8 % Lymphocytes (%) (Auto) 17.9 % Monocytes (%) (Auto) 10.5 % Eosinophils (%) (Auto) 4.1 % Basophils (%) (Auto) 0.7 % Neutrophils # (Auto) 4.6 TH/MM3 Lymphocytes # (Auto) 1.2 TH/MM3 Monocytes # (Auto) 0.7 TH/MM3 Eosinophils # (Auto) 0.3 TH/MM3 Basophils # (Auto) 0.0 TH/MM3 CBC Comment DIFF FINAL Differential Comment Prothrombin Time 43.1 SEC Prothromb Time International 3.7 RATIO Ratio Activated Partial 45.4 SEC Thromboplast Time Urine Color YELLOW Urine Turbidity HAZY Urine pH 6.5 Urine Specific [place] 1.011 Urine Protein 300 mg/dL Urine Glucose (UA) NEG mg/dL Urine Ketones NEG mg/dL Urine Occult Blood MOD Urine Nitrite NEG Urine Bilirubin NEG Urine Urobilinogen LESS THAN 2.0 MG/DL Urine Leukocyte Esterase LARGE Urine RBC 7 /hpf Urine WBC 42 /hpf Urine Squamous Epithelial 2 /hpf Cells Urine Bacteria MANY /hpf Microscopic Urinalysis Comment CATH-CULTURE IND Sodium Level 140 MEQ/L Potassium Level 3.7 MEQ/L Chloride Level 106 MEQ/L Carbon Dioxide Level 21.3 MEQ/L Anion Gap 13 MEQ/L Blood Urea Nitrogen 31 MG/DL Creatinine 2.30 MG/DL Estimat Glomerular Filtration 22 ML/MIN Rate Random Glucose 160 MG/DL Calcium Level 8.3 MG/DL Total Bilirubin 0.3 MG/DL Aspartate Amino Transf 12 U/L (AST/SGOT) Alanine Aminotransferase 10 U/L (ALT/SGPT) Alkaline Phosphatase 47 U/L Total Protein 7.4 GM/DL Albumin 2.5 GM/DL MDM Supervised Visit with [facility]: Yes Narrative Course I, Dr. Welch, have reviewed the advance practice practitioner's documentation and am in agreement, met with the patient face to face, made the diagnosis, and the medical decision making was done by me. See her note for further details. Briefly this is a 51-year-old female who was discharged from the hospital yesterday after being admitted for acute on chronic renal insufficiency, syncope , brought in by ambulance from home complaining of generalized weakness, and inability to ambulate. She states she was supposed to have home health, but no one came to evaluate her. She reports that she made several calls to home health, but no one came to help her. No fevers or chills. No other physical complaints other than generalized weakness. Vital signs are within normal limits. CBC is remarkable for hemoglobin 9.4, hematocrit 28.9 which is around her baseline, otherwise unremarkable. CMP is markable for BUN 31, creatinine 2.3, GFR 22, random glucose 160, otherwise unremarkable. UA shows 300 protein, moderate occult blood, large leukocyte esterase, 7 rbc's, 42 wbc's, many bacteria. The patient has an indwelling Goddard catheter. Patient was made aware of all findings. She does not feel safe being discharged home. I contacted our welfare case worker who recommended that the patient be admitted for overnight observation for PT/OT assessment and possible senior living placement. Case discussed with hospitalist Dr. Gifford who will admit the patient to her service for overnight observation for generalized weakness, inability to care for self. Diagnosis Primary Impression: Generalized weakness Additional Impressions: At risk for self care deficit Chronic renal insufficiency Qualified Code: N18.9 - Chronic renal insufficiency, unspecified stage Admitting Information Admitting Physician Requests: Observation Hima Welch MD Feb 27, 2017 22:03
[2017-02-27] MEDS ORDERED: SODIUM CHLORIDE 0.9% FLUSH 10 ML FLUSH IV FLUSH PRN (22:15)
[2017-02-27] MEDS ORDERED: NALOXONE HCL 0.4 MG/ML AMP IV PRN (22:15)
[2017-02-27 23:02] VITALS: BP 146/69; PULSE 73; RESP 18; O2SAT 99
[2017-02-28] VITALS (8 sets, daily range): BP systolic 128–162; BP diastolic 65–79; PULSE 81–100; RESP 16–20; TEMP 97.7–98.4; O2SAT 95–99
[2017-02-28] MEDS: LISINOPRIL 5 MG TAB PO SCH ×2 (11:53→21:01)
[2017-02-28] MEDS: SODIUM CHLORIDE 0.9% FLUSH 10 ML FLUSH IV FLUSH SCH ×2 (11:54→21:01)
[2017-02-28] MEDS: CALCITRIOL 0.25 MCG CAP PO SCH (15:31)
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
[2017-02-28 18:00] LABS: PROTHROMBIN TIME - PATIENT 34.2 SEC (9.8-11.6)
[2017-03-01 03:15] VITALS: BP 165/82; PULSE 100; RESP 20; TEMP 98.7; O2SAT 97
[2017-03-01 05:06] LABS: INTERNATIONAL NORMALIZED RATIO 2.4 RATIO
[2017-03-01 07:53] VITALS: BP 142/78; PULSE 99; RESP 18; TEMP 98.1; O2SAT 95
[2017-03-01] MEDS: CALCITRIOL 0.25 MCG CAP PO SCH (08:30)
[2017-03-01] MEDS: LISINOPRIL 5 MG TAB PO SCH ×2 (08:30→20:36)
[2017-03-01] MEDS: SODIUM CHLORIDE 0.9% FLUSH 10 ML FLUSH IV FLUSH SCH ×2 (08:31→20:36)
[2017-03-01] MEDS ORDERED: NEUR100C PO (08:34)
[2017-03-01 11:40] VITALS: BP 128/74; PULSE 90; RESP 16; TEMP 97.6; O2SAT 98
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
[2017-03-01 14:51] VITALS: BP 132/72; PULSE 101; RESP 16; TEMP 97.9; O2SAT 99
[2017-03-01] MEDS: WARFARIN SOD 5 MG TAB PO SCH (16:11)
[2017-03-01] MEDS ORDERED: LOPE2CAP PO (18:27)
[2017-03-01 20:08] LABS: C. DIFF EPI 027 PRESUMPTIVE NEGATIVE (NEGATIVE); C. DIFF TOXIN PCR NEGATIVE (NEGATIVE)
[2017-03-01 22:53] VITALS: BP 121/72; PULSE 103; RESP 18; O2SAT 98
[2017-03-02] VITALS: BP 128/71; PULSE 95; RESP 22; TEMP 97.9; O2SAT 96
[2017-03-02 04:00] VITALS: BP 128/81; PULSE 111; RESP 20; TEMP 98.2; O2SAT 97
[2017-03-02] MEDS ORDERED: LOPERAMIDE HCL 2 MG CAP PO ONE (05:00)
[2017-03-02] MEDS: ONDANSETRON HCL 4 MG/2 ML VIAL IV PUSH PRN ×2 (05:07→08:50)
[2017-03-02] MEDS ORDERED: PANTOPRAZOLE INJ 80 MG in SODIUM CHLORIDE 0.9% INJ 100 ML IV SCH (05:30)
[2017-03-02] MEDS ORDERED: PANTOPRAZOLE INJ 80 MG in SODIUM CHLORIDE 0.9% INJ 35 ML IV ONE (05:45)
[2017-03-02 05:57] LABS: AUTOMATED NEUTROPHIL # 8.8 TH/MM3 (1.8-7.7); BASOPHIL # 0.1 TH/MM3 (0-0.2); BASOPHIL % 0.7 % (0.0-2.0); EOSINOPHIL # 0.1 TH/MM3 (0-0.4); EOSINOPHIL % 0.9 % (0.0-4.0); HEMATOCRIT 33.6 % (35.0-46.0); HEMO FLAGS DIFF FINAL; LYMPHOCYTE # 1.3 TH/MM3 (1.0-4.8); MEAN CORPUSCULAR HEMOGLOBIN 27.1 PG (27.0-34.0); MONO % 5.5 % (0.0-8.0); NEUT % 80.9 % (16.0-70.0); PLATELET COUNT 224 TH/MM3 (150-450); RED CELL DISTRIBUTION WIDTH 15.3 % (11.6-17.2); WHITE BLOOD COUNT 10.9 TH/MM3 (4.0-11.0)
[2017-03-02] MEDS ORDERED: PANTOPRAZOLE SODIUM 40 MG VIAL IV PUSH SCH (06:00)
[2017-03-02 06:22] LABS: BICARBONATE 18.5 MEQ/L (21.0-32.0); POTASSIUM 3.4 MEQ/L (3.5-5.1)
[2017-03-02 08:13] VITALS: BP 130/75; PULSE 110; RESP 20; TEMP 98.4; O2SAT 95
[2017-03-02] MEDS: SODIUM CHLORIDE 0.9% FLUSH 10 ML FLUSH IV FLUSH SCH ×2 (08:50→20:15)
[2017-03-02] MEDS: CALCITRIOL 0.25 MCG CAP PO SCH (08:50)
[2017-03-02] MEDS: LISINOPRIL 5 MG TAB PO SCH ×2 (08:50→20:15)
[2017-03-02] MEDS: PANTOPRAZOLE SODIUM 40 MG VIAL IV PUSH SCH ×2 (09:00→20:15)
--- NOTE | 2017-03-02 09:20 | HHI.PR ---
Subjective Remarks f/u for generalized weakness. last night dark black emesis and stools. denied any abdominal pain. patient continues to feel weak and nauseated. no other complaints. Objective Vitals Vital Signs Date Time Temp Pulse Resp B/P Pulse Ox O2 Delivery O2 Flow Rate FiO2 03/02/17 08:13 98.4 110 20 130/75 95 03/02/17 04:00 98.2 111 20 128/81 97 03/02/17 00:00 97.9 95 22 128/71 96 03/01/17 22:53 103 18 121/72 98 03/01/17 14:51 97.9 101 16 132/72 99 03/01/17 11:40 97.6 90 16 128/74 98 I/O 03/01/17 03/01/17 03/01/17 03/02/17 03/02/17 03/02/17 07:00 15:00 23:00 07:00 15:00 23:00 Intake Total 2 ml Output Total 900 ml 1000 ml 500 ml 650 ml Balance -900 ml -998 ml -500 ml -650 ml IV Total 2 ml Output Urine Total 900 ml 1000 ml 500 ml 650 ml # Bowel Movements 2 1 6 Result Diagram: 03/02/17 0530 03/02/17 0530 Objective Remarks GENERAL: in NAD CARDIOVASCULAR: Regular rate and rhythm without murmurs, gallops, or rubs. RESPIRATORY: Breath sounds equal bilaterally. No accessory muscle use. GASTROINTESTINAL: Abdomen soft, non-tender, nondistended. MUSCULOSKELETAL: No cyanosis, or edema. BACK: Nontender without obvious deformity. No CVA tenderness. Medications and IVs Current Medications Sodium Chloride (NS Flush) 2 ml UNSCH PRN IV FLUSH FLUSH AFTER USING IV ACCESS ; Start 02/27/17 at 22:15 Sodium Chloride (NS Flush) 2 ml BID IV FLUSH Last administered on 03/02/17 08: 50; Start 02/28/17 at 09:00 Naloxone HCl (Narcan Inj) 0.4 mg UNSCH PRN IV SEE LABEL COMMENTS; Start at 22:15 Amlodipine Besylate (Norvasc) 10 mg DAILY PO Last administered on 03/02/17 08: 50; Start 02/28/17 at 11:00 Calcitriol (Rocaltrol) 0.5 mcg DAILY PO Last administered on 03/02/17 08:50; Start 02/28/17 at 11:00 Lisinopril (Prinivil) 10 mg BID PO Last administered on 03/02/17 08:50; Start 02/28/17 at 11:00 Warfarin Sodium (Coumadin) 5 mg DAILY@16 PO Last administered on 03/01/17 16:11 ; Start 03/01/17 at 16:00; Status Hold Ondansetron HCl (Zofran Inj) 4 mg Q6HR PRN IV PUSH nausea/vomiting Last administered on 03/02/17 08:50; Start 03/02/17 at 05:00 Loperamide HCl (Imodium) 4 mg ONCE ONCE PO Last administered on 03/02/17 05:07 ; Start 03/02/17 at 05:00; Stop 03/02/17 at 05:02; Status DC Pantoprazole Sodium 40 mg 40 mg Q24H IV PUSH ; Start 03/02/17 at 06:00; Stop 03/02 at 06:00; Status DC Pantoprazole Sodium 80 mg/ Sodium Chloride 100 ml @ 10 mls/hr CONTINUOUS IV Last administered on 03/02/17 06:07; Start 03/02/17 at 05:30; Stop 03/02/17 at 08: 50; Status DC Pantoprazole Sodium/Sodium Chloride (Protonix Inj/NS Inj) 35 ml @ 420 mls/hr ONCE ONCE IV Last administered on 03/02/17 06:07; Start 03/02/17 at 05:45; Stop 03/02/17 at 05:49; Status DC Pantoprazole Sodium (Protonix Inj) 40 mg Q12H IV PUSH ; Start 03/02/17 at 09:00 A/P Assessment and Plan Questionable hematemesis -patient is on Coumadin. -+ Hemoccult. -Hemoglobin improved from last admission. -will continue to trend H/H. -on Protonix gtt will change to Protonix IV BID. -educated patient about EGD and she declined despite knowing that if she does have an active bleed she can bleed out and that can lead to . She stated she understands. -GI consulted and can decide on what is needed for patient. generalized weakness/deconditioned. -consult PT/OT. -most likely patient will need placement in rehab. Acute renal failure -IMPROVING. - Due to bladder outlet obstruction - Ureteropelvicaliectasis bilaterally -Per urologist keep Goddard in and patient to follow-up as outpatient. Right arm nonocclusive DVT in the distal right brachial vein -on coumadin. -need to hold until cleared by GI due to dark bloody emesis. Mildly comminuted and slightly displaced fracture through the Left proximal metadiaphysis of the first metacarpal - Ortho consult - Dr. Kuo recommends nonoperative management with thumb spica splint Hypertension -uncontrolled -on lisinopril and amlodipine. DM type 2 -start on low dose SSI. Secondary hyperparathyroidism - cont cacitriol. DVT prophylaxis -hold Coumadin due to possible hematemesis Discharge Planning most likely need to be d/c to rehab. at the moment + black emesis and diarrhea need to evaluate further. Jen Rosado MD Mar 02, 2017 09:20
[2017-03-02] MEDS ORDERED: GLUCAGON 1 MG/ML VIAL OTHER PRN (09:30)
[2017-03-02] MEDS ORDERED: DEXTROSE 50% IN WATER 50 ML VIAL(D50) IV PUSH PRN (09:30)
--- NOTE | 2017-03-02 09:41 | PD.CONS ---
HPI History of Present Illness This is a 51 year old [lady] is c/o fatigue, general weakness, and one episode of hematemesis last night. She was recently d/c from hospitalization for renal insufficiency and returned subsequently with complaints of weakness and not being able to get out of her bed. SHe has been feeling nauseous and having diarrhea for the last couple days. She is having some crampy lower abdominal pain and fecal incontinence. Last night she threw up bright red blood and kept it for examination this morning [scant amount maroon emesis visualized]. She has never thrown up blood before. She says she has gastroparesis and diarrhea is normal for her and her tomb maker helper Dr Fine in [facility] gave her lomotil and it helped. She has reflux well controlled with cimetidine. Denies NSAID use, ETOH. Denies blood in stool, constipation. (Tiny Masterson) PFSH Past Medical History DM diabetic neuropathy gastroparesis HTN Past Surgical History Lap bessie, 01/2017 T&A, childhood (Tiny Masterson) Coded Allergies: Sinequan (Verified Allergy, Severe, HIVES, 09/05/14) Codeine (Verified Adverse Reaction, Severe, NAUSEA/VOMITING, 09/05/14) *MDRO Multi-Drug Resistant Organism (Unverified Adverse Reaction, Unknown , 02/17/17) MRSA (foot) - 06/29/11, 08/04/11 MRSA PCR Screen POSITIVE 02/17/17 Medications Current Medications Medications (Trade) Dose Ordered Sig/Jaylen Route PRN Reason Start Time Stop Time Status Last Admin Dose Admin Sodium Chloride (NS Flush) 2 ml UNSCH PRN IV FLUSH FLUSH AFTER USING IV ACCESS 02/27/17 22:15 Sodium Chloride (NS Flush) 2 ml BID IV FLUSH 02/28/17 09:00 03/02/17 08:50 Naloxone HCl (Narcan Inj) 0.4 mg UNSCH PRN IV SEE LABEL COMMENTS 02/27/17 22:15 Amlodipine Besylate (Norvasc) 10 mg DAILY PO 02/28/17 11:00 03/02/17 08:50 Calcitriol (Rocaltrol) 0.5 mcg DAILY PO 02/28/17 11:00 03/02/17 08:50 Lisinopril (Prinivil) 10 mg BID PO 02/28/17 11:00 03/02/17 08:50 Warfarin Sodium (Coumadin) 5 mg DAILY@16 PO 03/01/17 16:00 Hold 03/01/17 16:11 Ondansetron HCl (Zofran Inj) 4 mg Q6HR PRN IV PUSH nausea/vomiting 03/02/17 05:00 03/02/17 08:50 Pantoprazole Sodium (Protonix Inj) 40 mg Q12H IV PUSH 03/02/17 09:00 Dextrose (D50w (Vial) Inj) 25 ml UNSCH PRN IV PUSH HYPOGLYCEMIA-SEE COMMENTS 03/02/17 09:30 UNV Glucagon (Glucagon Inj) 1 mg UNSCH PRN OTHER HYPOGLYCEMIA-SEE COMMENTS 03/02/17 09:30 UNV Family History No family hx colon or gastric cancers Social History Denied tobacco alcohol, tobacco, or illicit drug abuse (Tiny Masterson) Review of Systems Constitutional: COMPLAINS OF: Fatigue, DENIES: Fever Eyes: DENIES: Blurred vision Ears, nose, mouth, throat: DENIES: Hearing loss Respiratory: DENIES: Cough, Wheezing Cardiovascular: DENIES: Chest pain Gastrointestinal: COMPLAINS OF: Abdominal pain, Diarrhea, Nausea, Vomiting, DENIES: Black stools, Bloody stools, Constipation, Anorexia Musculoskeletal: COMPLAINS OF: Joint pain Integumentary: DENIES: Pruritus Hematologic/lymphatic: COMPLAINS OF: Bruising (Tiny Masterson) GI Exam Vitals I&O Vital Signs Date Time Temp Pulse Resp B/P Pulse Ox O2 Delivery O2 Flow Rate FiO2 03/02/17 08:13 98.4 110 20 130/75 95 03/02/17 04:00 98.2 111 20 128/81 97 03/02/17 00:00 97.9 95 22 128/71 96 03/01/17 22:53 103 18 121/72 98 03/01/17 14:51 97.9 101 16 132/72 99 03/01/17 11:40 97.6 90 16 128/74 98 I/O 03/01/17 03/01/17 03/01/17 03/02/17 03/02/17 03/02/17 07:00 15:00 23:00 07:00 15:00 23:00 Intake Total 2 ml Output Total 900 ml 1000 ml 500 ml 650 ml Balance -900 ml -998 ml -500 ml -650 ml IV Total 2 ml Output Urine Total 900 ml 1000 ml 500 ml 650 ml # Bowel Movements 2 1 6 Laboratory Test 03/01/17 03/02/17 03/02/17 18:30 05:30 05:43 Stool C. difficile Toxin (PCR) NEGATIVE Stl C. difficile Toxin PRESUMPTIVE Epiderm 027 NEGATIVE White Blood Count 10.9 TH/MM3 Red Blood Count 4.10 MIL/MM3 Hemoglobin 11.1 GM/DL Hematocrit 33.6 % Mean Corpuscular Volume 82.0 FL Mean Corpuscular Hemoglobin 27.1 PG Mean Corpuscular Hemoglobin 33.0 % Concent Red Cell Distribution Width 15.3 % Platelet Count 224 TH/MM3 Mean Platelet Volume 10.3 FL Neutrophils (%) (Auto) 80.9 % Lymphocytes (%) (Auto) 12.0 % Monocytes (%) (Auto) 5.5 % Eosinophils (%) (Auto) 0.9 % Basophils (%) (Auto) 0.7 % Neutrophils # (Auto) 8.8 TH/MM3 Lymphocytes # (Auto) 1.3 TH/MM3 Monocytes # (Auto) 0.6 TH/MM3 Eosinophils # (Auto) 0.1 TH/MM3 Basophils # (Auto) 0.1 TH/MM3 CBC Comment DIFF FINAL Differential Comment Sodium Level 141 MEQ/L Potassium Level 3.4 MEQ/L Chloride Level 108 MEQ/L Carbon Dioxide Level 18.5 MEQ/L Anion Gap 15 MEQ/L Blood Urea Nitrogen 22 MG/DL Creatinine 1.79 MG/DL Estimat Glomerular Filtration 30 ML/MIN Rate Random Glucose 123 MG/DL Calcium Level 8.3 MG/DL Blood Type A NEGATIVE Antibody Screen NEGATIVE Date/Time Procedure Status Source Growth 03/02/17 05:17 Stool Occult Blood (DMITRY) - Final Complete Stool Stool HEMOCCULT POSITIVE 03/02/17 05:17 Gastric Occult Blood Received Gastric Pending 02/27/17 20:39 Urine Culture - Final Complete Urine Catheterized Urine Pseudomonas Aeruginosa Escherichia Coli Physical Examination HEENT: EOMI; normocephalic; atraumatic; no jaundice. NECK: Neck is supple, no JVD, CHEST: Chest is clear to auscultation and percussion. CARDIAC: Regular rate and rhythm with no murmur gallop or rubs. ABDOMEN: Soft, obese, healed trocar entry sites visible, nontender; no hepatosplenomegaly; bowel sounds are present in all four quadrants. EXTREMITIES: No clubbing, cyanosis, or edema. SKIN: Normal; no rash; no jaundice. PILING CUTTER: No focal deficits; alert and oriented times three. (Tiny Masterson) Assessment and Plan Plan ASSESSMENT: - nausea, hematemesis, heme pos stool. Scant maroon emesis mixed with clear fluid visible in basin. 1 episode. Pt refusing endoscopy. - Anemia, improving. HH 11.1, 33.6 today up from 9.4, 28.9 on 02/27/17 - diarrhea, chronic. PLAN - will do upper GI series - will await results of above - continue to monitor HH - zofran prn nausea - loperamide prn diarrhea This pt was seen and examined by myself and Dr Stone and this note is written on his behalf (Tiny Masterson) Physician Comments Seen and examined with ROMI, refusing all gi stephen including egd and ugi series. wants to eat and go home. Gi will sign off, reconsult as needed. Thank you ( Reba Stone MD) Tiny Masterson Mar 02, 2017 09:41 Reba Stone MD Mar 02, 2017 13:42
[2017-03-02] MEDS: INSULIN ASPART SUPPLEMENTAL SCALE SQ SCH ×3 (11:00→20:15)
[2017-03-02 11:14] LABS: BETA HCG QUANT LESS THAN 1 MIU/ML (0-5)
[2017-03-02 12:04] VITALS: BP 115/60; PULSE 101; RESP 20; TEMP 98.2; O2SAT 94
[2017-03-02 12:19] LABS: HEMATOCRIT 31.6 % (35.0-46.0); REVIEW FLAG FINAL
[2017-03-02 15:59] VITALS: BP 142/70; PULSE 100; RESP 20; TEMP 98.1; O2SAT 95
[2017-03-02] MEDS: WARFARIN SOD 5 MG TAB PO SCH (16:00)
[2017-03-02 18:50] LABS: HEMATOCRIT 30.9 % (35.0-46.0); REVIEW FLAG FINAL
[2017-03-02 20:00] VITALS: BP 138/67; PULSE 90; RESP 18; TEMP 96.9; O2SAT 98
[2017-03-03] VITALS: BP 120/69; PULSE 64; RESP 18; TEMP 96.4; O2SAT 95
[2017-03-03] MEDS: INSULIN ASPART SUPPLEMENTAL SCALE SQ SCH ×4 (04:58→21:00)
[2017-03-03 08:00] VITALS: BP 131/72; PULSE 104; RESP 18; TEMP 97.8; O2SAT 97
[2017-03-03] MEDS: CALCITRIOL 0.25 MCG CAP PO SCH (08:54)
[2017-03-03] MEDS: LISINOPRIL 5 MG TAB PO SCH ×2 (08:54→22:25)
[2017-03-03] MEDS: PANTOPRAZOLE SODIUM 40 MG VIAL IV PUSH SCH ×2 (08:54→22:26)
[2017-03-03] MEDS: SODIUM CHLORIDE 0.9% FLUSH 10 ML FLUSH IV FLUSH SCH ×2 (08:55→22:26)
[2017-03-03] MEDS: CEFEPIME INJ 2,000 MG in SODIUM CHLORIDE 0.9% INJ 100 ML IV SCH (09:43)
--- NOTE | 2017-03-03 09:49 | HHI.PR ---
Subjective Remarks Follow-up for emesis with possible GI bleed and weakness Patient refused EGD and upper GI series despite the risks and benefits of the study. She denied any other episodes of emesis or bloody vomit or stools. Patient stated that she wants eat. Otherwise no acute events since she was last seen. Objective Vitals Vital Signs Date Time Temp Pulse Resp B/P Pulse Ox O2 Delivery O2 Flow Rate FiO2 03/03/17 08:00 97.8 104 18 131/72 97 03/03/17 00:00 96.4 64 18 120/69 95 03/02/17 20:00 96.9 90 18 138/67 98 03/02/17 15:59 98.1 100 20 142/70 95 03/02/17 12:04 98.2 101 20 115/60 94 I/O 03/02/17 03/02/17 03/02/17 03/03/17 03/03/17 03/03/17 07:00 15:00 23:00 07:00 15:00 23:00 Output Total 650 ml 550 ml 300 ml Balance -650 ml -550 ml -300 ml Output Urine Total 650 ml 550 ml 300 ml # Bowel Movements 6 0 1 Result Diagram: 03/02/17 1801 03/02/17 0530 Objective Remarks GENERAL: in NAD CARDIOVASCULAR: Regular rate and rhythm without murmurs, gallops, or rubs. RESPIRATORY: Breath sounds equal bilaterally. No accessory muscle use. GASTROINTESTINAL: Abdomen soft, non-tender, nondistended. MUSCULOSKELETAL: No cyanosis, or edema. BACK: Nontender without obvious deformity. No CVA tenderness. Medications and IVs Current Medications Sodium Chloride (NS Flush) 2 ml UNSCH PRN IV FLUSH FLUSH AFTER USING IV ACCESS ; Start 02/27/17 at 22:15 Sodium Chloride (NS Flush) 2 ml BID IV FLUSH Last administered on 03/03/17 08: 55; Start 02/28/17 at 09:00 Naloxone HCl (Narcan Inj) 0.4 mg UNSCH PRN IV SEE LABEL COMMENTS; Start at 22:15 Amlodipine Besylate (Norvasc) 10 mg DAILY PO Last administered on 03/03/17 08: 54; Start 02/28/17 at 11:00 Calcitriol (Rocaltrol) 0.5 mcg DAILY PO Last administered on 03/03/17 08:54; Start 02/28/17 at 11:00 Lisinopril (Prinivil) 10 mg BID PO Last administered on 03/03/17 08:54; Start 02/28/17 at 11:00 Warfarin Sodium (Coumadin) 5 mg DAILY@16 PO Last administered on 03/01/17 16:11 ; Start 03/01/17 at 16:00 Ondansetron HCl (Zofran Inj) 4 mg Q6HR PRN IV PUSH nausea/vomiting Last administered on 03/02/17 08:50; Start 03/02/17 at 05:00 Loperamide HCl (Imodium) 4 mg ONCE ONCE PO Last administered on 03/02/17 05:07 ; Start 03/02/17 at 05:00; Stop 03/02/17 at 05:02; Status DC Pantoprazole Sodium 40 mg 40 mg Q24H IV PUSH ; Start 03/02/17 at 06:00; Stop 03/02 at 06:00; Status DC Pantoprazole Sodium 80 mg/ Sodium Chloride 100 ml @ 10 mls/hr CONTINUOUS IV Last administered on 03/02/17 06:07; Start 03/02/17 at 05:30; Stop 03/02/17 at 08: 50; Status DC Pantoprazole Sodium/Sodium Chloride (Protonix Inj/NS Inj) 35 ml @ 420 mls/hr ONCE ONCE IV Last administered on 03/02/17 06:07; Start 03/02/17 at 05:45; Stop 03/02/17 at 05:49; Status DC Pantoprazole Sodium (Protonix Inj) 40 mg Q12H IV PUSH Last administered on 08:54; Start 03/02/17 at 09:00 Dextrose (D50w (Vial) Inj) 25 ml UNSCH PRN IV PUSH HYPOGLYCEMIA-SEE COMMENTS; Start 03/02/17 at 09:30 Glucagon (Glucagon Inj) 1 mg UNSCH PRN OTHER HYPOGLYCEMIA-SEE COMMENTS; Start 03/02/17 at 09:30 Insulin Aspart 1 1 ACHS SLIDING SCALE SQ ; Start 03/02/17 at 11:00 Cefepime HCl/ Sodium Chloride (Maxipime Inj/NS Inj) 100 ml @ 200 mls/hr DAILY IV Last administered on 03/03/17 09:43; Start 03/03/17 at 09:00; Stop 03/09/17 at 23:00 Acetaminophen/ Hydrocodone Bitart ([place] 5-325 Mg) 1 tab Q6H PRN PO PAIN Last administered on 03/03/17 09:58; Start 03/03/17 at 09:45 Gabapentin (Neurontin) 100 mg BID PO Last administered on 03/03/17 09:57; Start 03/03/17 at 10:00 A/P Assessment and Plan Questionable hematemesis -patient is on Coumadin. -+ Hemoccult. -Hemoglobin improved from last admission. -will continue to trend H/H. -GI consulted and patient declined EGD and upper GI series despite the benefits of having the procedure done especially being on Coumadin. Patient understands that she can bleed out which can lead to . -GI signed off. -Continue to monitor hemoglobin and hematocrit. UTI -Urine cultures grew Pseudomonas and Escherichia coli. -Patient is asymptomatic but no fevers. -Due to multidrug-resistant organism will consult infectious disease. -Start patient on cefepime 2 g IV daily renally dose. generalized weakness/deconditioned. -PT/OT consulted. -most likely patient will need placement in rehab. Acute renal failure -IMPROVING. - Due to bladder outlet obstruction - Ureteropelvicaliectasis bilaterally -Per urologist keep [place] in and patient to follow-up as outpatient. Right arm nonocclusive DVT in the distal right brachial vein -on coumadin. -need to hold until cleared by GI due to dark bloody emesis. Mildly comminuted and slightly displaced fracture through the Left proximal metadiaphysis of the first metacarpal - Ortho consult - Dr. Kuo recommends nonoperative management with thumb spica splint Hypertension -uncontrolled -on lisinopril and amlodipine. DM type 2 -start on low dose SSI. Secondary hyperparathyroidism - cont cacitriol. DVT prophylaxis -Coumadin resumed. Discharge Planning If hemoglobin is stable tomorrow patient can be discharged tomorrow to SNF or inpatient rehabilitation. Most likely patient will need IV antibiotics. Jen Rosado MD Mar 03, 2017 09:49
[2017-03-03] MEDS: GABAPENTIN 100 MG CAP PO SCH ×2 (09:57→22:25)
[2017-03-03] MEDS: ACETAMINOPHEN/HYDROcodone 325 MG/5 MG TAB PO PRN (09:58)
[2017-03-03 12:00] VITALS: BP 154/72; PULSE 104; RESP 20; TEMP 97.7; O2SAT 98
[2017-03-03 16:00] VITALS: BP 130/65; PULSE 108; RESP 20; TEMP 96.9; O2SAT 99
[2017-03-03] MEDS: WARFARIN SOD 5 MG TAB PO SCH (16:00)
--- NOTE | 2017-03-03 16:10 | PD.CONS ---
History of Present Illness Service Infectious disease Consult Requested By Dr Derian Rosado Reason for Consult Evaluate patient with positive urine culture Primary Care Physician No Primary Care Physician Diagnoses: History of Present Illness Patient seen and examined. Records reviewed. Patient is a 51-year-old female recently hospitalized, and during that hospitalization she had renal failure which was felt to be due to bladder outlet obstruction. She had a Gates catheter placed and her creatinine improved and went down to baseline. It was felt that she probably has some underlying diabetic nephropathy as well. She was discharged around February 26 and according to the patient she had significant weakness and was really bedbound. To the hospital for that purpose. Patient has not had any fevers. She thinks that her Gates was placed during her last admission and has not been changed. There's been no chills. There was some mild pyuria on her urinalysis, and her urine culture has Pseudomonas and Escherichia coli. Infectious disease consultation has been requested to evaluate the patient. Review of Systems Constitutional: COMPLAINS OF: Fatigue, DENIES: Fever, Chills Eyes: DENIES: Eye pain Ears, nose, mouth, throat: DENIES: Nasal discharge, Oral lesions, Throat pain, Running Nose, Sinus Pain Respiratory: DENIES: Cough, Shortness of breath Cardiovascular: DENIES: Chest pain, Palpitations Gastrointestinal: DENIES: Abdominal pain, Nausea, Vomiting Musculoskeletal: COMPLAINS OF: Stiffness, DENIES: Joint Swelling Integumentary: DENIES: Rash Neurologic: DENIES: Headache Psychiatric: DENIES: Anxiety, Hallucinations Past Family Social History Allergies: Coded Allergies: [place] (Verified Allergy, Severe, HIVES, 09/05/14) Codeine (Verified Adverse Reaction, Severe, NAUSEA/VOMITING, 09/05/14) *MDRO Multi-Drug Resistant Organism (Unverified Adverse Reaction, Unknown , 02/17/17) MRSA (foot) - 06/29/11, 08/04/11 MRSA PCR Screen POSITIVE 02/17/17 Past Medical History Hypertension Diabetes Morbid obesity Renal insufficiency Anemia of acute blood loss Bladder outlet obstruction Right arm nonocclusive DVT Gastroparesis Kidney stones Neuropathy Past Surgical History Previous lithotripsy Cholecystectomy Tonsillectomy Active Ordered Medications [place] Norvasc Rocaltrol Cefepime Neurontin Insulin Prinivil Zofran Protonix Coumadin Social History Lives at home No smoking No alcohol abuse No illicit drugs Physical Exam Vital Signs Vital Signs Date Time Temp Pulse Resp B/P Pulse Ox O2 Delivery O2 Flow Rate FiO2 03/03/17 12:00 97.7 104 20 154/72 98 03/03/17 08:00 97.8 104 18 131/72 97 03/03/17 00:00 96.4 64 18 120/69 95 03/02/17 20:00 96.9 90 18 138/67 98 Physical Exam GENERAL: This is an obese, well-developed female, awake and alert, in no apparent distress. SKIN: Cool and dry, no generalized rash or ecchymosis. HEAD: Atraumatic. Normocephalic. No temporal or scalp tenderness. EYES: [place] conjunctivae. Pupils equal round and reactive. Extraocular motions intact. No scleral icterus. No injection or drainage. ENT: Nose without bleeding, or purulent drainage. Moist oral mucosa. Throat without erythema, or exudate. Uvula midline. Airway patent. NECK: Trachea midline. No JVD or lymphadenopathy. Supple, nontender, no meningeal signs. CARDIOVASCULAR: Regular rate and rhythm without murmurs, gallops, or rubs. RESPIRATORY: Clear to auscultation. Breath sounds equal bilaterally. No wheezes , rales, or rhonchi. Decreased breath sounds at the bases. GASTROINTESTINAL: Abdomen soft, obese, non-tender, nondistended. Wounds from previous laparoscopic surgery are dry with some scab, no evidence of infection. No organomegaly. No guarding or rebound. Has an ecchymotic area in the right lower quadrant looks like from previous subcutaneous injections. MUSCULOSKELETAL: Extremities without clubbing, cyanosis, or edema. No joint effusion, or edema noted. No calf tenderness. NEUROLOGICAL: Awake and alert. Cranial nerves II through XII intact. Motor and sensory grossly within normal limits. Normal speech. PSYCH: Calm and cooperative LINE: PIV with no evidence of infection : Gates catheter in place, with sediment in the tubing Laboratory Laboratory Tests Test 03/02/17 18:01 Hemoglobin 10.0 Hematocrit 30.9 Date/Time Procedure Status Source Growth 03/02/17 05:17 Stool Occult Blood (DMITRY) - Final Complete Stool Stool HEMOCCULT POSITIVE 03/02/17 05:17 Gastric Occult Blood - Final Complete Gastric GASTROCCULT POSITIVE 02/27/17 20:39 Urine Culture - Final Complete Urine Catheterized Urine Pseudomonas Aeruginosa Escherichia Coli Result Diagram: 03/02/17 1801 03/02/17 0530 Assessment and Plan Assessment and Plan IMPRESSION Gates associated UTI, C/S PSAE, Ecoli Renal insufficiency DM Obesity RECOMMENDATION Change gates cath Repeat UA and C/S after gates change At least 7 days Abx Thank you for this consultation Discussed Condition With Explained to the patient the need to change gates cath Lucía Tay MD Mar 03, 2017 16:10
[2017-03-03 20:00] VITALS: BP 150/90; PULSE 96; RESP 20; TEMP 98.4; O2SAT 98
[2017-03-04] VITALS: BP 158/80; PULSE 91; RESP 20; TEMP 96.5; O2SAT 98
[2017-03-04] MEDS: INSULIN ASPART SUPPLEMENTAL SCALE SQ SCH ×4 (04:47→20:19)
[2017-03-04 06:04] LABS: HEMATOCRIT 30.5 % (35.0-46.0); MEAN CELL VOLUME 84.3 FL (80.0-100.0); MEAN CORPUSCULAR HEMOGLOBIN 26.8 PG (27.0-34.0); MEAN CORPUSCULAR HGB CONC 31.9 % (32.0-36.0); PLATELET COUNT 177 TH/MM3 (150-450); RED BLOOD COUNT 3.62 MIL/MM3 (4.00-5.30); RED CELL DISTRIBUTION WIDTH 15.6 % (11.6-17.2); REVIEW FLAG FINAL; WHITE BLOOD COUNT 8.8 TH/MM3 (4.0-11.0)
[2017-03-04 06:28] LABS: BICARBONATE 18.6 MEQ/L (21.0-32.0); POTASSIUM 3.8 MEQ/L (3.5-5.1)
[2017-03-04 08:00] VITALS: BP 133/77; PULSE 93; RESP 20; TEMP 96.3; O2SAT 98
[2017-03-04] MEDS: PANTOPRAZOLE SODIUM 40 MG VIAL IV PUSH SCH ×2 (08:42→20:17)
[2017-03-04] MEDS: CEFEPIME INJ 2,000 MG in SODIUM CHLORIDE 0.9% INJ 100 ML IV SCH (08:42)
[2017-03-04] MEDS: CALCITRIOL 0.25 MCG CAP PO SCH (08:42)
[2017-03-04] MEDS: GABAPENTIN 100 MG CAP PO SCH ×2 (08:42→20:18)
[2017-03-04] MEDS: LISINOPRIL 5 MG TAB PO SCH ×2 (08:43→20:19)
[2017-03-04] MEDS: SODIUM CHLORIDE 0.9% FLUSH 10 ML FLUSH IV FLUSH SCH ×2 (08:45→20:18)
[2017-03-04 12:00] VITALS: BP 150/79; PULSE 94; RESP 20; TEMP 96.9; O2SAT 98
[2017-03-04 16:00] VITALS: BP 136/70; PULSE 90; RESP 20; TEMP 96.7; O2SAT 98
[2017-03-04] MEDS: WARFARIN SOD 5 MG TAB PO SCH (16:00)
--- NOTE | 2017-03-04 16:14 | HHI.PR ---
Subjective Remarks patient stated she is not feeling well. When I asked her why she said " I don't know." when I asked her why she refused her Coumadin and not tell me this yesterday she looked away. denied any N/V. No blood in stools. refuse gates change and I asked her why then she start whinning and state "i don 't want to." I then stated to patient I think you have a lot of anxiety that is affecting your decision. She stated she agrees. I asked her if she was okay with speaking to a Psychiatrist and she stated okay. Objective Vitals Vital Signs Date Time Temp Pulse Resp B/P Pulse Ox O2 Delivery O2 Flow Rate FiO2 03/04/17 12:00 96.9 94 20 150/79 98 03/04/17 08:00 96.3 93 20 133/77 98 03/04/17 00:00 96.5 91 20 158/80 98 03/03/17 20:00 98.4 96 20 150/90 98 I/O 03/03/17 03/03/17 03/03/17 03/04/17 03/04/17 03/04/17 07:00 15:00 23:00 07:00 15:00 23:00 Intake Total 582 ml 240 ml 120 ml 100 ml Output Total 300 ml 650 ml 250 ml 650 ml Balance -300 ml -68 ml -10 ml -530 ml 100 ml Intake Oral 480 ml 240 ml 120 ml IV Total 102 ml 0 ml 100 ml Output Urine Total 300 ml 650 ml 250 ml 650 ml # Bowel Movements 1 0 Result Diagram: 03/04/17 0537 03/04/17 0537 Objective Remarks GENERAL: in NAD CARDIOVASCULAR: Regular rate and rhythm without murmurs, gallops, or rubs. RESPIRATORY: Breath sounds equal bilaterally. No accessory muscle use. GASTROINTESTINAL: Abdomen soft, non-tender, nondistended. MUSCULOSKELETAL: No cyanosis, or edema. BACK: Nontender without obvious deformity. No CVA tenderness. Medications and IVs Current Medications Sodium Chloride (NS Flush) 2 ml UNSCH PRN IV FLUSH FLUSH AFTER USING IV ACCESS ; Start 02/27/17 at 22:15 Sodium Chloride (NS Flush) 2 ml BID IV FLUSH Last administered on 03/04/17t 08: 45; Start 02/28/17 at 09:00 Naloxone HCl (Narcan Inj) 0.4 mg UNSCH PRN IV SEE LABEL COMMENTS; Start at 22:15 Amlodipine Besylate (Norvasc) 10 mg DAILY PO Last administered on 03/04/17 08: 42; Start 02/28/17 at 11:00 Calcitriol (Rocaltrol) 0.5 mcg DAILY PO Last administered on 03/04/17 08:42; Start 02/28/17 at 11:00 Lisinopril (Prinivil) 10 mg BID PO Last administered on 03/04/17 08:43; Start 02/28/17 at 11:00 Warfarin Sodium (Coumadin) 5 mg DAILY@16 PO Last administered on 03/01/17 16:11 ; Start 03/01/17 at 16:00 Ondansetron HCl (Zofran Inj) 4 mg Q6HR PRN IV PUSH nausea/vomiting Last administered on 03/02/17 08:50; Start 03/02/17 at 05:00 Loperamide HCl (Imodium) 4 mg ONCE ONCE PO Last administered on 03/02/17 05:07 ; Start 03/02/17 at 05:00; Stop 03/02/17 at 05:02; Status DC Pantoprazole Sodium 40 mg 40 mg Q24H IV PUSH ; Start 03/02/17 at 06:00; Stop 03/02 at 06:00; Status DC Pantoprazole Sodium 80 mg/ Sodium Chloride 100 ml @ 10 mls/hr CONTINUOUS IV Last administered on 03/02/17 06:07; Start 03/02/17 at 05:30; Stop 03/02/17 at 08: 50; Status DC Pantoprazole Sodium/Sodium Chloride (Protonix Inj/NS Inj) 35 ml @ 420 mls/hr ONCE ONCE IV Last administered on 03/02/17 06:07; Start 03/02/17 at 05:45; Stop 03/02/17 at 05:49; Status DC Pantoprazole Sodium (Protonix Inj) 40 mg Q12H IV PUSH Last administered on 08:42; Start 03/02/17 at 09:00 Dextrose (D50w (Vial) Inj) 25 ml UNSCH PRN IV PUSH HYPOGLYCEMIA-SEE COMMENTS; Start 03/02/17 at 09:30 Glucagon (Glucagon Inj) 1 mg UNSCH PRN OTHER HYPOGLYCEMIA-SEE COMMENTS; Start 03/02/17 at 09:30 Insulin Aspart 1 1 ACHS SLIDING SCALE SQ ; Start 03/02/17 at 11:00 Cefepime HCl/ Sodium Chloride (Maxipime Inj/NS Inj) 100 ml @ 200 mls/hr DAILY IV Last administered on 03/04/17 08:42; Start 03/03/17 at 09:00; Stop 03/09/17 at 23:00 Acetaminophen/ Hydrocodone Bitart ([place] 5-325 Mg) 1 tab Q6H PRN PO PAIN Last administered on 03/03/17 09:58; Start 03/03/17 at 09:45 Gabapentin (Neurontin) 100 mg BID PO Last administered on 03/04/17 08:42; Start 03/03/17 at 10:00 A/P Assessment and Plan Questionable hematemesis -patient is refusing coumadin. -+ Hemoccult. -hemoglobin stable. -GI consulted and patient declined EGD and upper GI series despite the benefits of having the procedure done especially being on Coumadin. Patient understands that she can bleed out which can lead to . -GI signed off. -Continue to monitor hemoglobin and hematocrit. UTI -Urine cultures grew Pseudomonas and Escherichia coli. -Patient is asymptomatic but no fevers. -Due to multidrug-resistant organism will consult infectious disease. -on cefepime 2 g IV daily renally dose. -ID consulted. Per ID antibiotics for 7 days and replace gates. -I explained to patient importance of gates change since she refused she kept stating that "she does not want to." -I told her i can give her some ativan and pain medication to help her if she feels its painful and still declined. generalized weakness/deconditioned. -PT/OT consulted. -most likely patient will need placement in rehab. Acute renal failure -IMPROVING. - Due to bladder outlet obstruction - Ureteropelvicaliectasis bilaterally -Per urologist keep Gates in and patient to follow-up as outpatient. Right arm nonocclusive DVT in the distal right brachial vein -refused coumadin despite the benefits. -will repeat US. Mildly comminuted and slightly displaced fracture through the Left proximal metadiaphysis of the first metacarpal - Ortho consult - Dr. Kuo recommends nonoperative management with thumb spica splint Hypertension -uncontrolled -on lisinopril and amlodipine. DM type 2 -start on low dose SSI. Secondary hyperparathyroidism - cont cacitriol. DVT prophylaxis -Coumadin resumed. Discharge Planning I think patient's anxiety is affecting her decision making. I will consult Psychiatrist. Jen Rosado MD Mar 04, 2017 16:13
[2017-03-04 20:00] VITALS: BP 142/68; PULSE 97; RESP 20; TEMP 96.1; O2SAT 98
--- NOTE | 2017-03-04 21:31 | RADRPT ---
EXAM DATE/TIME: 03/04/2017 18:24 [facility] COMPARISON: US ARM RIGHT VENOUS DOPPLER, February 19, 2017, 10:25. INDICATIONS : Right arm swelling with previous DVT. MEDICAL HISTORY : Gastroesophageal reflux disease. Renal calculi. Gastroparesis. Deep vein thrombosis. Vision loss. [place] ropathy. Head trauma. Syncope. Migraines. Hypertension. Asthma. Pneumonia. Arthritis. Osteoporosis. G out. Diabetes. Depression. Anxiety. Thyroid disease. Anemia. Mental retardation. MRSA. SURGICAL HISTORY : Tonsillectomy. Right foot surgery. Lithotripsy. Nephrectomy. ENCOUNTER: Subsequent ACUITY: 1 week PAIN SCORE: 4/10 LOCATION: Right arm. FINDINGS: There appears to be some focal occlusive thrombus in the mid right brachial vein. Otherwise, the rest of the venous structures visualized appear to be patent including the internal jugular, subclavian, axillary, basilic and cephalic veins. CONCLUSION: Focal occlusive thrombus in the mid right brachial vein. Ethan Kay MD on March 04, 2017 at 21:27 Board Certified Radiologist. This report was verified electronically.
[2017-03-05] VITALS: BP 148/69; PULSE 95; RESP 20; TEMP 95.9; O2SAT 97
[2017-03-05] MEDS: INSULIN ASPART SUPPLEMENTAL SCALE SQ SCH ×4 (05:23→21:00)
[2017-03-05 08:00] VITALS: BP 154/75; PULSE 95; RESP 20; TEMP 97.6; O2SAT 98
[2017-03-05] MEDS: PANTOPRAZOLE SODIUM 40 MG VIAL IV PUSH SCH ×2 (08:23→21:44)
[2017-03-05] MEDS: GABAPENTIN 100 MG CAP PO SCH ×2 (08:23→21:43)
[2017-03-05] MEDS: CALCITRIOL 0.25 MCG CAP PO SCH (08:23)
[2017-03-05] MEDS: CEFEPIME INJ 2,000 MG in SODIUM CHLORIDE 0.9% INJ 100 ML IV SCH (08:24)
[2017-03-05] MEDS: SODIUM CHLORIDE 0.9% FLUSH 10 ML FLUSH IV FLUSH SCH ×2 (08:24→21:00)
[2017-03-05] MEDS: LISINOPRIL 5 MG TAB PO SCH ×2 (08:25→21:43)
--- NOTE | 2017-03-05 08:47 | HHI.PR ---
Subjective Remarks f/u for DVT, UTI patient continues to have gates change. She stated " she doesnt want to." and pouted. When I explained to her why again that the reason she has a UTI is the gates and that in order to get rid of the infection we need to change the gates and treat with the IV antibiotics. If we do not do that she can have recurrent UTIs and the infection may be so severe that it can lead to . She then whines and stated "I dont wanna." When I asked her if she understood she stated "Yes." I also took patient the results of the us doppler and told her there is still a clot and that she should consider restarting coumadin if not it puts her at risk at having a PE which can cause difficulty breathing which can result in problems with the heart. If clot is severe it can lead to . She continue to declined and stated she understands. Her nurse was at the bedside at the end of the interview. Patient denied any N/V, blood in stools, or SOB. Objective Vitals Vital Signs Date Time Temp Pulse Resp B/P Pulse Ox O2 Delivery O2 Flow Rate FiO2 03/05/17 00:00 95.9 95 20 148/69 97 03/04/17 20:00 96.1 97 20 142/68 98 03/04/17 16:00 96.7 90 20 136/70 98 03/04/17 12:00 96.9 94 20 150/79 98 I/O 03/04/17 03/04/17 03/04/17 03/05/17 03/05/17 03/05/17 07:00 15:00 23:00 07:00 15:00 23:00 Intake Total 120 ml 700 ml 120 ml 120 ml Output Total 650 ml 800 ml 1150 ml 800 ml Balance -530 ml -100 ml -1030 ml -680 ml Intake Oral 120 ml 600 ml 120 ml 120 ml IV Total 100 ml Output Urine Total 650 ml 800 ml 1150 ml 800 ml # Bowel Movements 0 Result Diagram: 03/04/17 0537 03/04/17 0537 Objective Remarks GENERAL: in NAD CARDIOVASCULAR: Regular rate and rhythm without murmurs, gallops, or rubs. RESPIRATORY: Breath sounds equal bilaterally. No accessory muscle use. GASTROINTESTINAL: Abdomen soft, non-tender, nondistended. MUSCULOSKELETAL: No cyanosis, or edema. BACK: Nontender without obvious deformity. No CVA tenderness. Medications and IVs Current Medications Sodium Chloride (NS Flush) 2 ml UNSCH PRN IV FLUSH FLUSH AFTER USING IV ACCESS ; Start 02/27/17 at 22:15 Sodium Chloride (NS Flush) 2 ml BID IV FLUSH Last administered on 03/05/17 08: 24; Start 02/28/17 at 09:00 Naloxone HCl (Narcan Inj) 0.4 mg UNSCH PRN IV SEE LABEL COMMENTS; Start at 22:15 Amlodipine Besylate (Norvasc) 10 mg DAILY PO Last administered on 03/05/17 08: 24; Start 02/28/17 at 11:00 Calcitriol (Rocaltrol) 0.5 mcg DAILY PO Last administered on 03/05/17 08:23; Start 02/28/17 at 11:00 Lisinopril (Prinivil) 10 mg BID PO Last administered on 03/05/17 08:25; Start 02/28/17 at 11:00 Warfarin Sodium (Coumadin) 5 mg DAILY@16 PO Last administered on 03/01/17 16:11 ; Start 03/01/17 at 16:00 Ondansetron HCl (Zofran Inj) 4 mg Q6HR PRN IV PUSH nausea/vomiting Last administered on 03/02/17 08:50; Start 03/02/17 at 05:00 Loperamide HCl (Imodium) 4 mg ONCE ONCE PO Last administered on 03/02/17 05:07 ; Start 03/02/17 at 05:00; Stop 03/02/17 at 05:02; Status DC Pantoprazole Sodium 40 mg 40 mg Q24H IV PUSH ; Start 03/02/17 at 06:00; Stop 03/02 at 06:00; Status DC Pantoprazole Sodium 80 mg/ Sodium Chloride 100 ml @ 10 mls/hr CONTINUOUS IV Last administered on 03/02/17 06:07; Start 03/02/17 at 05:30; Stop 03/02/17 at 08: 50; Status DC Pantoprazole Sodium/Sodium Chloride (Protonix Inj/NS Inj) 35 ml @ 420 mls/hr ONCE ONCE IV Last administered on 03/02/17 06:07; Start 03/02/17 at 05:45; Stop 03/02/17 at 05:49; Status DC Pantoprazole Sodium (Protonix Inj) 40 mg Q12H IV PUSH Last administered on 08:23; Start 03/02/17 at 09:00 Dextrose (D50w (Vial) Inj) 25 ml UNSCH PRN IV PUSH HYPOGLYCEMIA-SEE COMMENTS; Start 03/02/17 at 09:30 Glucagon (Glucagon Inj) 1 mg UNSCH PRN OTHER HYPOGLYCEMIA-SEE COMMENTS; Start 03/02/17 at 09:30 Insulin Aspart 1 1 ACHS SLIDING SCALE SQ ; Start 03/02/17 at 11:00 Cefepime HCl/ Sodium Chloride (Maxipime Inj/NS Inj) 100 ml @ 200 mls/hr DAILY IV Last administered on 03/05/17 08:24; Start 03/03/17 at 09:00; Stop 03/09/17 at 23:00 Acetaminophen/ Hydrocodone Bitart ([place] 5-325 Mg) 1 tab Q6H PRN PO PAIN Last administered on 03/03/17 09:58; Start 03/03/17 at 09:45 Gabapentin (Neurontin) 100 mg BID PO Last administered on 03/05/17 08:23; Start 03/03/17 at 10:00 A/P Assessment and Plan Questionable hematemesis -patient is refusing coumadin. -+ Hemoccult. -hemoglobin stable. -GI consulted and patient declined EGD and upper GI series despite the benefits of having the procedure done especially being on Coumadin. Patient understands that she can bleed out which can lead to . -GI signed off and now patient wants EGD done. will reconsult. -Continue to monitor hemoglobin and hematocrit. UTI -Urine cultures grew Pseudomonas and Escherichia coli. -Patient is asymptomatic but no fevers. -Due to multidrug-resistant organism will consult infectious disease. -on cefepime 2 g IV daily renally dose. -ID consulted. Per ID antibiotics for 7 days and replace gates. -I explained to patient importance of gates change again since she refused she kept stating that "she does not want to." -I told her i can give her some ativan and pain medication to help her if she feels its painful and still declined. generalized weakness/deconditioned. -PT/OT consulted. - patient will need placement in rehab. Acute renal failure -IMPROVING. - Due to bladder outlet obstruction - Ureteropelvicaliectasis bilaterally -Per urologist keep Gates in and patient to follow-up as outpatient. Right arm nonocclusive DVT in the distal right brachial vein -refused coumadin despite the benefits. - repeat US shows nonocclusive clot in brachial vein and she continue to refuse treatment. Mildly comminuted and slightly displaced fracture through the Left proximal metadiaphysis of the first metacarpal - Ortho consult - Dr. Kuo recommends nonoperative management with thumb spica splint Hypertension -uncontrolled but better controlled that prior admission. -on lisinopril and amlodipine. DM type 2 -on low dose SSI. Secondary hyperparathyroidism - cont cacitriol. DVT prophylaxis -declined her coumadin Discharge Planning Noncompliant patient that is refusing care. I think this is due to her anxiety. I consulted Psychiatrist yesterday for further recommendations. if we do not get a gates change patient will end up returning to hospital. Her UTI is highly resistant to PO medication. Jen Rosado MD Mar 05, 2017 08:47
[2017-03-05 11:25] LABS: HEMATOCRIT 32.4 % (35.0-46.0); MEAN CELL VOLUME 83.2 FL (80.0-100.0); MEAN CORPUSCULAR HEMOGLOBIN 27.2 PG (27.0-34.0); MEAN CORPUSCULAR HGB CONC 32.6 % (32.0-36.0); PLATELET COUNT 185 TH/MM3 (150-450); RED BLOOD COUNT 3.89 MIL/MM3 (4.00-5.30); RED CELL DISTRIBUTION WIDTH 15.5 % (11.6-17.2); REVIEW FLAG FINAL; WHITE BLOOD COUNT 7.4 TH/MM3 (4.0-11.0)
[2017-03-05 11:32] LABS: BICARBONATE 18.2 MEQ/L (21.0-32.0); POTASSIUM 3.9 MEQ/L (3.5-5.1)
[2017-03-05 12:00] VITALS: BP 155/74; PULSE 88; RESP 20; TEMP 97; O2SAT 98
--- NOTE | 2017-03-05 14:04 | PD.CONS ---
Provisional Diagnosis Admission Date Mar 02, 2017 at 05:39 [place]. Borderline personality disorder F 60.3 dysthymia f 34.1 History of Present Illness Service Psychiatry Consult Requested By Attending Edita. Reason for Consult Assessment Primary Care Physician No Primary Care Physician HPI Patient is a morbidly obese 51-year-old female admitted for treatment of a UTI and versus metabolic issues as to see because of patient's anxiety irritability recalcitrant behaviors related to cooperation with treatment team. Of interest identity psychiatric consultation on this patient on 08/03/11 at that time diagnosed her as dysthymia I did recommend counseling to help her with these lifelong issues but did not recommend medication at that time. Patient seen today in her room nurse Arielle present throughout session. Patient is alert oriented irritable labile tearful whiny demanding entitled morbidly obese female she does acknowledge being negative and her outlook on life. That she does not tolerate cooperation, frustration with her multiple medical and physical issues. She states she lives with her mother and a roommate. She is vague about any past psychiatric contact or hospitalizations. It appears she continues to have negative impressions about counseling or medications. It's as if she has a self-fulfilling prophecy verifying the negativity in her life. However she does denies suicidality homicidality voices or visions alcohol or drug use. We did discuss the need for cooperation with the treatment team, and perhaps the use of some medication to help her calm her anxiety and irritability. Patient listed multiple medications that her perceived failure with her in the past. However she is willing to try a small dose of Seroquel. Allergies suggest we start her on Seroquel 25 mg 8 AM and 4 PM and monitor her behaviors. Thanks for consult Dr. Smith will back tomorrow and he can follow-up with his consultation Review of Systems ROS Limitations: Clinical Condition, Uncooperative, Poor Historian, Other ( patient quite whiny demanding entitled preconceived notions) Past Family Social History Coded Allergies: Sinequan (Verified Allergy, Severe, HIVES, 09/05/14) Codeine (Verified Adverse Reaction, Severe, NAUSEA/VOMITING, 09/05/14) *MDRO Multi-Drug Resistant Organism (Unverified Adverse Reaction, Unknown , 02/17/17) MRSA (foot) - 06/29/11, 08/04/11 MRSA PCR Screen POSITIVE 03/24/17 Past Medical History Multiple complex please see [facility] Active Scripts Warfarin (Coumadin)5 Mg Tab5 Mg PO DAILY@16 #30 TAB Prov:Jaswinder Neville MD 02/26/17 Lisinopril 5 Mg Tab10 Mg PO BID #60 TAB Prov:Jaswinder Neville MD 02/26/17 Amlodipine (Norvasc)10 Mg Tab10 Mg PO DAILY #30 TAB Prov:Jaswinder Neville MD 02/26/17 Hydrocodone-Acetaminophen ([place])5-325 mg Tab1 Tab PO Q6H PRN (PAIN) #20 TAB Ref 0 Prov:Essie Coley MD R2 02/06/17 Calcitriol (Rocaltrol)0.25 Mcg Cap0.5 Mcg PO DAILY #60 CAP Prov:Essie Coley MD R2 02/06/17 Lisinopril 2.5 Mg Tab2.5 Mg PO DAILY #30 TAB Ref 0 Prov:Essie Coley MD R2 02/06/17 Ciprofloxacin (Cipro)500 Mg Glw375 Mg PO Q12HR #10 TAB Prov:Essie Coley MD R2 02/06/17 Reported Medications Loperamide 2 Mg Cap2 Mg PO DIRECTED PRN (DIARRHEA) Ref 0 One capsule after each loose stool. Not to exceed 8 capsules per day. 03/01/17 Gabapentin (Neurontin)100 Mg Cap Mg PO BID Ref 0 03/01/17 Current Medications Medications (Trade) Dose Ordered Sig/Jaylen Route Start Time Stop Time Status Last Admin (NS Flush) 2 ml UNSCH PRN IV FLUSH 02/27/17 22:15 (NS Flush) 2 ml BID IV FLUSH 02/28/17 09:00 03/05/17 08:24 (Narcan Inj) 0.4 mg UNSCH PRN IV 02/27/17 22:15 (Norvasc) 10 mg DAILY PO 02/28/17 11:00 03/05/17 08:24 (Rocaltrol) 0.5 mcg DAILY PO 02/28/17 11:00 03/05/17 08:23 (Prinivil) 10 mg BID PO 02/28/17 11:00 03/05/17 08:25 (Coumadin) 5 mg DAILY@16 PO 03/01/17 16:00 03/01/17 16:11 (Zofran Inj) 4 mg Q6HR PRN IV PUSH 03/02/17 05:00 03/02/17 08:50 (Protonix Inj) 40 mg Q12H IV PUSH 03/02/17 09:00 03/05/17 08:23 (D50w (Vial) Inj) 25 ml UNSCH PRN IV PUSH 03/02/17 09:30 Glucagon 1 mg 1 mg UNSCH PRN OTHER 03/02/17 09:30 (Maxipime Inj/NS Inj) 100 ml @ 200 mls/hr DAILY IV 03/03/17 09:00 03/09/17 23:00 03/05/17 08:24 ([place] 5-325 Mg) 1 tab Q6H PRN PO 03/03/17 09:45 03/03/17 09:58 (Neurontin) 100 mg BID PO 03/03/17 10:00 03/05/17 08:23 Family History Unknown at this time Social History Patient was of mother and roommate Patient's Strengths (min. 2) Patient verbal irritable access healthcare Physical Exam Please see med surge assessments Vital Signs Vital Signs Date Time Temp Pulse Resp B/P Pulse Ox O2 Delivery O2 Flow Rate FiO2 03/05/17 12:00 97.0 88 20 155/74 98 I/O 03/04/17 03/04/17 03/05/17 08:00 16:00 00:00 Intake Total 120 ml 700 ml 120 ml Output Total 650 ml 800 ml 1150 ml Balance -530 ml -100 ml -1030 ml Mental Status Examination Alert oriented morbidly obese white female laying in bed with very anxious agitated negative demanding whiny tearful labile attitude Appearance Somewhat disheveled Speech: Pressured, Rapid, Tangential, Other (whiny) Orientation: x3 Memory: Unremarkable Thought Process: Linear, Tangential Thought Content: Paranoid, Ideas of Reference Language Arabic Fund of Knowledge Poor to fair Hallucination Type: None Attention and Concentration: Other (fair) Suicidal Ideation: No (denies) Previous Suicide Attempts: No (denies) Homicidal Ideation: No (denies) Previous Homicide Attempts: No (denies) Insight: Poor Judgment: Poor Affect: Other (increased range and intensity) Mood: Other (dysthymic) Motor Activity: Abnormal gait-specify (patient laying in bed unable to ascertain) Assessment & Plan Problem List: (1) Borderline personality disorder ICD Code: F60.3 (2) Dysthymia ICD Code: F34.1 Assessment & Plan Estimated LOS: days patient remains demanding entitled needy and somewhat manipulative, Augustina medication suggestion. We'll transfer this consult to Dr. Tam will be available tomorrow Discharge Planning Per med surge team Request HC Surrog/Guard Advoc?: No Morales Mancilla MD Mar 05, 2017 14:04
[2017-03-05] MEDS: QUEtiapine FUMARATE 25 MG TAB PO SCH (15:32)
[2017-03-05] MEDS: WARFARIN SOD 5 MG TAB PO SCH (15:33)
[2017-03-05 16:00] VITALS: BP 152/78; PULSE 88; RESP 20; TEMP 96.9; O2SAT 99
--- NOTE | 2017-03-05 16:20 | HHI.GIFU ---
Subjective Remarks was asked to see patient again since she is agreeable to have EGD , no new symptom, no sign of GI bleed Objective Vitals I&O Vital Signs Date Time Temp Pulse Resp B/P Pulse Ox O2 Delivery O2 Flow Rate FiO2 03/05/17 16:00 96.9 88 20 152/78 99 03/05/17 12:00 97.0 88 20 155/74 98 03/05/17 08:00 97.6 95 20 154/75 98 03/05/17 00:00 95.9 95 20 148/69 97 03/04/17 20:00 96.1 97 20 142/68 98 I/O 03/04/17 03/04/17 03/04/17 03/05/17 03/05/17 03/05/17 07:00 15:00 23:00 07:00 15:00 23:00 Intake Total 120 ml 700 ml 120 ml 120 ml 902 ml Output Total 650 ml 800 ml 1150 ml 800 ml 750 ml Balance -530 ml -100 ml -1030 ml -680 ml 152 ml Intake Oral 120 ml 600 ml 120 ml 120 ml 800 ml IV Total 100 ml 102 ml Output Urine Total 650 ml 800 ml 1150 ml 800 ml 750 ml # Bowel Movements 0 0 Laboratory Laboratory Tests Test 03/05/17 10:20 White Blood Count 7.4 Red Blood Count 3.89 Hemoglobin 10.6 Hematocrit 32.4 Mean Corpuscular Volume 83.2 Mean Corpuscular Hemoglobin 27.2 Mean Corpuscular Hemoglobin 32.6 Concent Red Cell Distribution Width 15.5 Platelet Count 185 Mean Platelet Volume 10.4 Sodium Level 139 Potassium Level 3.9 Chloride Level 108 Carbon Dioxide Level 18.2 Anion Gap 13 Blood Urea Nitrogen 24 Creatinine 2.00 Estimat Glomerular Filtration 26 Rate Random Glucose 76 Calcium Level 8.5 Date/Time Procedure Status Source Growth 03/02/17 05:17 Stool Occult Blood (DMITRY) - Final Complete Stool Stool HEMOCCULT POSITIVE 03/02/17 05:17 Gastric Occult Blood - Final Complete Gastric GASTROCCULT POSITIVE Physical Exam HEENT: Pupils round and reactive to light; normocephalic; atraumatic; no jaundice. Throat is clear. NECK: Neck is supple, no JVD, no lymphadenopathy. CHEST: Chest is clear to auscultation and percussion. CARDIAC: Regular rate and rhythm with no murmur gallop or rubs. ABDOMEN: Soft, nondistended, nontender; no hepatosplenomegaly; bowel sounds are present in all four quadrants. EXTREMITIES: No clubbing, cyanosis, or edema. SKIN: Normal; no rash; no jaundice. DERRICK HAND: No focal deficits; alert and oriented times three. Assessment and Plan Plan ASSESSMENT: - nausea, hematemesis, heme pos stool. Scant maroon emesis mixed with clear fluid visible in basin. 1 episode. Pt refusing endoscopy. - Anemia, improving. HH 11.1, 33.6 today up from 9.4, 28.9 on 02/27/17 - diarrhea, chronic. -07-13 no nausea today but willing to have EHF because of anemia PLAN - will do upper endoscoopy - will await results of above - continue to monitor HH - zofran prn nausea Jean Pierre Rodriguez MD Mar 05, 2017 16:20
[2017-03-05 20:00] VITALS: BP 115/76; PULSE 96; RESP 20; TEMP 97; O2SAT 100
[2017-03-06] VITALS (7 sets, daily range): BP systolic 100–136; BP diastolic 62–72; PULSE 92–103; RESP 14–20; TEMP 95.9–98; O2SAT 97–100
[2017-03-06] MEDS ORDERED: LACTATED RINGER'S 1000 ML IV PRN (02:45)
[2017-03-06 05:37] LABS: HEMATOCRIT 31.9 % (35.0-46.0); MEAN CELL VOLUME 83.4 FL (80.0-100.0); MEAN CORPUSCULAR HEMOGLOBIN 27.5 PG (27.0-34.0); PLATELET COUNT 210 TH/MM3 (150-450); RED BLOOD COUNT 3.83 MIL/MM3 (4.00-5.30); RED CELL DISTRIBUTION WIDTH 15.3 % (11.6-17.2); REVIEW FLAG FINAL; WHITE BLOOD COUNT 9.2 TH/MM3 (4.0-11.0)
[2017-03-06 05:50] LABS: BICARBONATE 20.3 MEQ/L (21.0-32.0); POTASSIUM 4.3 MEQ/L (3.5-5.1)
[2017-03-06] MEDS: INSULIN ASPART SUPPLEMENTAL SCALE SQ SCH ×4 (06:37→19:21)
[2017-03-06] MEDS: CEFEPIME INJ 2,000 MG in SODIUM CHLORIDE 0.9% INJ 100 ML IV SCH (08:15)
[2017-03-06] MEDS: SODIUM CHLORIDE 0.9% FLUSH 10 ML FLUSH IV FLUSH SCH ×2 (08:15→19:20)
[2017-03-06] MEDS: CALCITRIOL 0.25 MCG CAP PO SCH (08:18)
[2017-03-06] MEDS: PANTOPRAZOLE SODIUM 40 MG VIAL IV PUSH SCH ×2 (08:18→19:20)
[2017-03-06] MEDS: GABAPENTIN 100 MG CAP PO SCH ×2 (08:19→19:19)
[2017-03-06] MEDS: LISINOPRIL 5 MG TAB PO SCH ×2 (08:19→19:19)
[2017-03-06] MEDS: QUEtiapine FUMARATE 25 MG TAB PO SCH ×2 (08:19→15:59)
--- NOTE | 2017-03-06 08:51 | HHI.PR ---
Subjective Remarks f/u for hematemesis, noncompliance, UTI and DVT Patient is going to get EGD soon. Nurse at bedside. She continues to refuse gates. I asked nurse if they can asked OR if they can replace the gates before or after EGD while she is sedated. Otherwise no episode of emesis. Patient stated she is willing to restart Coumadin based on results. Objective Vitals Vital Signs Date Time Temp Pulse Resp B/P Pulse Ox O2 Delivery O2 Flow Rate FiO2 03/06/17 00:00 97.4 92 20 118/72 97 03/05/17 20:00 97.0 96 20 115/76 100 03/05/17 16:00 96.9 88 20 152/78 99 03/05/17 12:00 97.0 88 20 155/74 98 I/O 03/05/17 03/05/17 03/05/17 03/06/17 03/06/17 03/06/17 07:00 15:00 23:00 07:00 15:00 23:00 Intake Total 120 ml 902 ml 320 ml 240 ml 95 ml Output Total 800 ml 750 ml 600 ml 650 ml 300 ml Balance -680 ml 152 ml -280 ml -410 ml -205 ml Intake Oral 120 ml 800 ml 320 ml 240 ml IV Total 102 ml 95 ml Output Urine Total 800 ml 750 ml 600 ml 650 ml 300 ml # Bowel Movements 0 0 0 Result Diagram: 03/06/17 0510 03/06/17 0510 Objective Remarks GENERAL: in NAD CARDIOVASCULAR: Regular rate and rhythm without murmurs, gallops, or rubs. RESPIRATORY: Breath sounds equal bilaterally. No accessory muscle use. GASTROINTESTINAL: Abdomen soft, non-tender, nondistended. MUSCULOSKELETAL: No cyanosis, or edema. BACK: Nontender without obvious deformity. No CVA tenderness. Medications and IVs Current Medications Sodium Chloride (NS Flush) 2 ml UNSCH PRN IV FLUSH FLUSH AFTER USING IV ACCESS ; Start 02/27/17 at 22:15 Sodium Chloride (NS Flush) 2 ml BID IV FLUSH Last administered on 03/06/17t 08: 15; Start 02/28/17 at 09:00 Naloxone HCl (Narcan Inj) 0.4 mg UNSCH PRN IV SEE LABEL COMMENTS; Start at 22:15 Amlodipine Besylate (Norvasc) 10 mg DAILY PO Last administered on 03/06/17 08: 18; Start 02/28/17 at 11:00 Calcitriol (Rocaltrol) 0.5 mcg DAILY PO Last administered on 03/06/17 08:18; Start 02/28/17 at 11:00 Lisinopril (Prinivil) 10 mg BID PO Last administered on 03/06/17 08:19; Start 02/28/17 at 11:00 Warfarin Sodium (Coumadin) 5 mg DAILY@16 PO Last administered on 03/01/17 16:11 ; Start 03/01/17 at 16:00 Ondansetron HCl (Zofran Inj) 4 mg Q6HR PRN IV PUSH nausea/vomiting Last administered on 03/02/17 08:50; Start 03/02/17 at 05:00 Loperamide HCl (Imodium) 4 mg ONCE ONCE PO Last administered on 03/02/17 05:07 ; Start 03/02/17 at 05:00; Stop 03/02/17 at 05:02; Status DC Pantoprazole Sodium 40 mg 40 mg Q24H IV PUSH ; Start 03/02/17 at 06:00; Stop 03/02 at 06:00; Status DC Pantoprazole Sodium 80 mg/ Sodium Chloride 100 ml @ 10 mls/hr CONTINUOUS IV Last administered on 03/02/17 06:07; Start 03/02/17 at 05:30; Stop 03/02/17 at 08: 50; Status DC Pantoprazole Sodium/Sodium Chloride (Protonix Inj/NS Inj) 35 ml @ 420 mls/hr ONCE ONCE IV Last administered on 03/02/17 06:07; Start 03/02/17 at 05:45; Stop 03/02/17 at 05:49; Status DC Pantoprazole Sodium (Protonix Inj) 40 mg Q12H IV PUSH Last administered on 03/06 08:18; Start 03/02/17 at 09:00 Dextrose (D50w (Vial) Inj) 25 ml UNSCH PRN IV PUSH HYPOGLYCEMIA-SEE COMMENTS; Start 03/02/17 at 09:30 Glucagon (Glucagon Inj) 1 mg UNSCH PRN OTHER HYPOGLYCEMIA-SEE COMMENTS; Start 03/02/17 at 09:30 Insulin Aspart 1 1 ACHS SLIDING SCALE SQ ; Start 03/02/17 at 11:00 Cefepime HCl/ Sodium Chloride (Maxipime Inj/NS Inj) 100 ml @ 200 mls/hr DAILY IV Last administered on 03/06/17 08:15; Start 03/03/17 at 09:00; Stop 03/09/17 at 23:00 Acetaminophen/ Hydrocodone Bitart (Leiter 5-325 Mg) 1 tab Q6H PRN PO PAIN Last administered on 03/03/17 09:58; Start 03/03/17 at 09:45 Gabapentin (Neurontin) 100 mg BID PO Last administered on 03/06/17 08:19; Start 03/03/17 at 10:00 Quetiapine Fumarate 25 mg 25 mg BID@08,16 PO Last administered on 03/06/17 08: 19; Start 03/05/17 at 16:00 Lactated Ringer's (Lr 1000 ml Inj) 1,000 ml @ 30 mls/hr Q24H PRN IV SEE LABEL COMMENTS; Start 03/06/17 at 02:45; Stop 03/09/17 at 02:44 A/P Assessment and Plan Questionable hematemesis -patient is refusing coumadin but now is willing to restart medication based on EGD results. -+ Hemoccult. -hemoglobin stable. -GI consulted and patient declined EGD and upper GI series despite the benefits of having the procedure done especially being on Coumadin. Patient understands that she can bleed out which can lead to . -GI signed off and now patient wants EGD done. patient scheduled for EGD today. -Continue to monitor hemoglobin and hematocrit. UTI -Urine cultures grew Pseudomonas and Escherichia coli. -Patient is asymptomatic but no fevers. -Due to multidrug-resistant organism infectious disease consulted. -on cefepime 2 g IV daily renally dose. -ID consulted. Per ID antibiotics for 7 days and replace gates. -I explained to patient importance of gates change again since she refused she kept stating that "she does not want to." -I told her i can give her some ativan and pain medication to help her if she feels its painful and still declined. -We will try to get gates replace when she is sedated in OR. d/w nurse. generalized weakness/deconditioned. -PT/OT consulted. - patient will need placement in rehab. Acute renal failure -IMPROVING. - Due to bladder outlet obstruction - Ureteropelvicaliectasis bilaterally -Per urologist keep Gates in and patient to follow-up as outpatient. Right arm nonocclusive DVT in the distal right brachial vein -refused coumadin despite the benefits. - repeat US shows nonocclusive clot in brachial vein and she continue to refuse treatment. Mildly comminuted and slightly displaced fracture through the Left proximal metadiaphysis of the first metacarpal - Ortho consult - Dr. Kuo recommends nonoperative management with thumb spica splint Hypertension -uncontrolled but better controlled that prior admission. -on lisinopril and amlodipine. DM type 2 -on low dose SSI. Secondary hyperparathyroidism - cont cacitriol. Noncompliant -Psych consulted since patient behavior is interfering with her care. -Possible dx of personality disorder/ dysthymia -recommend seroquel. DVT prophylaxis -declined her coumadin Discharge Planning Pending answer today if patient qualifies for inpatient rehab. Jen Rosado MD Mar 06, 2017 08:51
--- NOTE | 2017-03-06 10:20 | HHI.IDPN ---
Subjective Subjective Remarks Notes reviewed No fever Has refused change of gates Has now agreed to have GI evaluation Antibiotics Cefepime Past Medical History Hypertension Diabetes Morbid obesity Renal insufficiency Anemia of acute blood loss Bladder outlet obstruction Right arm nonocclusive DVT Gastroparesis Kidney stones Neuropathy Past Surgical History Previous lithotripsy Cholecystectomy Tonsillectomy Allergies: Coded Allergies: Sinequan (Verified Allergy, Severe, HIVES, 09/05/14) Codeine (Verified Adverse Reaction, Severe, NAUSEA/VOMITING, 09/05/14) *MDRO Multi-Drug Resistant Organism (Unverified Adverse Reaction, Unknown , 02/17/17) MRSA (foot) - 06/29/11, 08/04/11 MRSA PCR Screen POSITIVE 02/17/17 Objective . Vital Signs Date Time Temp Pulse Resp B/P Pulse Ox O2 Delivery O2 Flow Rate FiO2 03/06/17 08:00 97.6 103 14 118/64 97 03/06/17 00:00 97.4 92 20 118/72 97 03/05/17 20:00 97.0 96 20 115/76 100 03/05/17 16:00 96.9 88 20 152/78 99 03/05/17 12:00 97.0 88 20 155/74 98 03/05/17 03/05/17 03/06/17 15:00 23:00 07:00 Intake Total 902 ml 320 ml 240 ml Output Total 750 ml 600 ml 650 ml Balance 152 ml -280 ml -410 ml Intake Oral 800 ml 320 ml 240 ml IV Total 102 ml Output Urine Total 750 ml 600 ml 650 ml # Bowel Movements 0 0 0 . Laboratory Tests Test 03/05/17 03/06/17 10:20 05:10 White Blood Count 7.4 TH/MM3 9.2 TH/MM3 Red Blood Count 3.89 MIL/MM3 3.83 MIL/MM3 Hemoglobin 10.6 GM/DL 10.5 GM/DL Hematocrit 32.4 % 31.9 % Mean Corpuscular Volume 83.2 FL 83.4 FL Mean Corpuscular Hemoglobin 27.2 PG 27.5 PG Mean Corpuscular Hemoglobin 32.6 % 33.0 % Concent Red Cell Distribution Width 15.5 % 15.3 % Platelet Count 185 TH/MM3 210 TH/MM3 Mean Platelet Volume 10.4 FL 10.3 FL Laboratory Tests Test 03/05/17 03/06/17 10:20 05:10 Sodium Level 139 MEQ/L 137 MEQ/L Potassium Level 3.9 MEQ/L 4.3 MEQ/L Chloride Level 108 MEQ/L 106 MEQ/L Carbon Dioxide Level 18.2 MEQ/L 20.3 MEQ/L Anion Gap 13 MEQ/L 11 MEQ/L Blood Urea Nitrogen 24 MG/DL 26 MG/DL Creatinine 2.00 MG/DL 1.98 MG/DL Estimat Glomerular Filtration 26 ML/MIN 27 ML/MIN Rate Random Glucose 76 MG/DL 79 MG/DL Calcium Level 8.5 MG/DL 8.9 MG/DL Imaging Upper Extremity Ultrasound 03/04/17 0000 Signed Impressions: Service Date/Time: Saturday, March 04, 2017 18:24 - CONCLUSION: Focal occlusive thrombus in the mid right brachial vein. Ethan Kay MD Physical Exam GENERAL: awake and alert, tearful. NAD SKIN: Cool and dry, no generalized rash or ecchymosis. HEENT: [place] conjunctivae. No scleral icterus. Moist oral mucosa. NECK: Supple, nontender, no meningeal signs. CARDIOVASCULAR: Regular rate and rhythm without murmurs, gallops, or rubs. RESPIRATORY: Clear to auscultation. Breath sounds equal bilaterally. No wheezes , rales, or rhonchi. Decreased breath sounds at the bases. GASTROINTESTINAL: Abdomen soft, obese, non-tender, nondistended. Wounds from previous laparoscopic surgery are dry with some scab, no evidence of infection. No guarding or rebound. Has an ecchymotic area in the right lower quadrant looks like from previous subcutaneous injections. MUSCULOSKELETAL: Extremities without clubbing, cyanosis, or edema. No joint effusion, or edema noted. No calf tenderness. NEUROLOGICAL: Non-focal PSYCH: Tearful LINE: PIV with no evidence of infection : Gates catheter in place, with sediment in the tubing Assessment & Plan Remarks IMPRESSION Gates associated UTI, C/S PSAE, Ecoli Renal insufficiency DM Obesity RECOMMENDATION Change gates cath when patient agreeable At least 7 days Abx I will sign off Please call if with any further ID issue or question Lucía Tay MD Mar 06, 2017 10:20
[2017-03-06] MEDS: WARFARIN SOD 5 MG TAB PO SCH (15:59)
[2017-03-06] MEDS ORDERED: DO NOT ADM ANY ANTICOAGULANT DRUGS OTHER PRN (16:00)
--- NOTE | 2017-03-06 17:03 | HHI.GIFU ---
Subjective Remarks Resting in bed. Refusing evaluation with egd. No n/v. No obvious active bleeding. Tolerating diet. Objective Vitals I&O Vital Signs Date Time Temp Pulse Resp B/P Pulse Ox O2 Delivery O2 Flow Rate FiO2 03/06/17 12:00 96.6 95 14 109/62 99 03/06/17 11:18 99 03/06/17 08:00 97.6 103 14 118/64 97 03/06/17 00:00 97.4 92 20 118/72 97 03/05/17 20:00 97.0 96 20 115/76 100 I/O 03/05/17 03/05/17 03/05/17 03/06/17 03/06/17 03/06/17 07:00 15:00 23:00 07:00 15:00 23:00 Intake Total 120 ml 902 ml 320 ml 240 ml 95 ml Output Total 800 ml 750 ml 600 ml 650 ml 300 ml Balance -680 ml 152 ml -280 ml -410 ml -205 ml Intake Oral 120 ml 800 ml 320 ml 240 ml IV Total 102 ml 95 ml Output Urine Total 800 ml 750 ml 600 ml 650 ml 300 ml # Bowel Movements 0 0 0 Laboratory Laboratory Tests Test 03/06/17 05:10 White Blood Count 9.2 Red Blood Count 3.83 Hemoglobin 10.5 Hematocrit 31.9 Mean Corpuscular Volume 83.4 Mean Corpuscular Hemoglobin 27.5 Mean Corpuscular Hemoglobin 33.0 Concent Red Cell Distribution Width 15.3 Platelet Count 210 Mean Platelet Volume 10.3 Sodium Level 137 Potassium Level 4.3 Chloride Level 106 Carbon Dioxide Level 20.3 Anion Gap 11 Blood Urea Nitrogen 26 Creatinine 1.98 Estimat Glomerular Filtration 27 Rate Random Glucose 79 Calcium Level 8.9 Date/Time Procedure Status Source Growth 03/02/17 05:17 Stool Occult Blood (DMITRY) - Final Complete Stool Stool HEMOCCULT POSITIVE 03/02/17 05:17 Gastric Occult Blood - Final Complete Gastric GASTROCCULT POSITIVE Imaging Last Impressions Upper Extremity Ultrasound 03/04/17 0000 Signed Impressions: Service Date/Time: Saturday, March 04, 2017 18:24 - CONCLUSION: Focal occlusive thrombus in the mid right brachial vein. Ethan Kay MD Physical Exam HEENT: Normocephalic; atraumatic; no jaundice CHEST: CTA CARDIAC: RRR ABDOMEN: Soft, nondistended, nontender; no hepatosplenomegaly; bowel sounds are present in all four quadrants. EXTREMITIES: No clubbing, cyanosis, or edema. SKIN: Normal; no rash; no jaundice. PROFESSIONAL BENEFITS SALES CONSULTANT: No focal deficits; alert and oriented times three. Assessment and Plan Plan ASSESSMENT: - Nausea, hematemesis, heme pos stool. Scant maroon emesis mixed with clear fluid visible in basin on admission x 1 episode. Plan was for EGD, but she is now refusing. No further episodes. HH stable at 10.04/26.9. D/W patient evaluation with EGD, but she is refusing. - Anemia, improving. H/H .04/26.. - Diarrhea, chronic. Stable. PLAN - Pt refused EGD - BRIDGER - PPI - Monitor HH - GI will sign off, please reconsult as needed - Pt seen and examined by Dr. Rodriguez and myself and this note is written on his behalf Angela Dukes Mar 06, 2017 17:03
[2017-03-07] VITALS (7 sets, daily range): BP systolic 100–124; BP diastolic 53–70; PULSE 5–99; RESP 16–20; TEMP 96.4–98.2; O2SAT 95–100
[2017-03-07] MEDS: INSULIN ASPART SUPPLEMENTAL SCALE SQ SCH ×4 (07:00→20:18)
[2017-03-07] MEDS: QUEtiapine FUMARATE 25 MG TAB PO SCH ×2 (08:39→17:02)
[2017-03-07] MEDS: CEFEPIME INJ 2,000 MG in SODIUM CHLORIDE 0.9% INJ 100 ML IV SCH (08:39)
[2017-03-07] MEDS: SODIUM CHLORIDE 0.9% FLUSH 10 ML FLUSH IV FLUSH SCH ×2 (08:39→20:19)
[2017-03-07] MEDS: LISINOPRIL 5 MG TAB PO SCH ×2 (08:40→20:18)
[2017-03-07] MEDS: CALCITRIOL 0.25 MCG CAP PO SCH (08:40)
[2017-03-07] MEDS: PANTOPRAZOLE SODIUM 40 MG VIAL IV PUSH SCH ×2 (08:41→20:17)
[2017-03-07] MEDS: GABAPENTIN 100 MG CAP PO SCH ×2 (08:41→20:17)
--- NOTE | 2017-03-07 09:37 | HHI.PR ---
Subjective Remarks Follow-up for noncompliance, UTI Patient again refused EGD despite telling me for the procedure that she will have it done. She continues to refuse Coumadin. I spoke with physical therapist who is working with patient and stated that patient is able to ambulate without any assistance and that she can go home. Objective Vitals Vital Signs Date Time Temp Pulse Resp B/P Pulse Ox O2 Delivery O2 Flow Rate FiO2 03/07/17 08:00 98.2 99 16 105/53 96 03/07/17 05:00 96.4 90 20 100/54 95 03/07/17 00:00 97.8 92 20 108/70 98 03/06/17 20:39 96 03/06/17 20:00 98.0 100 20 100/64 97 03/06/17 16:00 95.9 96 15 136/67 100 03/06/17 12:00 96.6 95 14 109/62 99 03/06/17 11:18 99 I/O 03/06/17 03/06/17 03/06/17 03/07/17 03/07/17 03/07/17 07:00 15:00 23:00 07:00 15:00 23:00 Intake Total 240 ml 575 ml 440 ml 240 ml Output Total 650 ml 600 ml 650 ml 700 ml Balance -410 ml -25 ml -210 ml -460 ml Intake Oral 240 ml 480 ml 440 ml 240 ml IV Total 95 ml Output Urine Total 650 ml 600 ml 650 ml 700 ml # Bowel Movements 0 0 0 0 Result Diagram: 03/06/17 0510 03/06/17 0510 Objective Remarks GENERAL: in NAD CARDIOVASCULAR: Regular rate and rhythm without murmurs, gallops, or rubs. RESPIRATORY: Breath sounds equal bilaterally. No accessory muscle use. GASTROINTESTINAL: Abdomen soft, non-tender, nondistended. MUSCULOSKELETAL: No cyanosis, or edema. BACK: Nontender without obvious deformity. No CVA tenderness. Medications and IVs Current Medications Sodium Chloride (NS Flush) 2 ml UNSCH PRN IV FLUSH FLUSH AFTER USING IV ACCESS ; Start 02/27/17 at 22:15 Sodium Chloride (NS Flush) 2 ml BID IV FLUSH Last administered on 03/07/17t 08: 39; Start 02/28/17 at 09:00 Naloxone HCl (Narcan Inj) 0.4 mg UNSCH PRN IV SEE LABEL COMMENTS; Start at 22:15 Amlodipine Besylate (Norvasc) 10 mg DAILY PO Last administered on 03/06/17 08: 18; Start 02/28/17 at 11:00 Calcitriol (Rocaltrol) 0.5 mcg DAILY PO Last administered on 03/07/17 08:40; Start 02/28/17 at 11:00 Lisinopril (Prinivil) 10 mg BID PO Last administered on 03/06/17 19:19; Start 02/28/17 at 11:00 Warfarin Sodium (Coumadin) 5 mg DAILY@16 PO Last administered on 03/06/17 15: 59; Start 03/01/17 at 16:00 Ondansetron HCl (Zofran Inj) 4 mg Q6HR PRN IV PUSH nausea/vomiting Last administered on 03/02/17 08:50; Start 03/02/17 at 05:00 Loperamide HCl (Imodium) 4 mg ONCE ONCE PO Last administered on 03/02/17 05:07 ; Start 03/02/17 at 05:00; Stop 03/02/17 at 05:02; Status DC Pantoprazole Sodium 40 mg 40 mg Q24H IV PUSH ; Start 03/02/17 at 06:00; Stop 03/02 at 06:00; Status DC Pantoprazole Sodium 80 mg/ Sodium Chloride 100 ml @ 10 mls/hr CONTINUOUS IV Last administered on 03/02/17 06:07; Start 03/02/17 at 05:30; Stop 03/02/17 at 08: 50; Status DC Pantoprazole Sodium/Sodium Chloride (Protonix Inj/NS Inj) 35 ml @ 420 mls/hr ONCE ONCE IV Last administered on 03/02/17 06:07; Start 03/02/17 at 05:45; Stop 03/02/17 at 05:49; Status DC Pantoprazole Sodium (Protonix Inj) 40 mg Q12H IV PUSH Last administered on 03/07 08:41; Start 03/02/17 at 09:00 Dextrose (D50w (Vial) Inj) 25 ml UNSCH PRN IV PUSH HYPOGLYCEMIA-SEE COMMENTS; Start 03/02/17 at 09:30 Glucagon (Glucagon Inj) 1 mg UNSCH PRN OTHER HYPOGLYCEMIA-SEE COMMENTS; Start 03/02/17 at 09:30 Insulin Aspart 1 1 ACHS SLIDING SCALE SQ ; Start 03/02/17 at 11:00 Cefepime HCl/ Sodium Chloride (Maxipime Inj/NS Inj) 100 ml @ 200 mls/hr DAILY IV Last administered on 03/07/17 08:39; Start 03/03/17 at 09:00; Stop 03/09/17 at 23:00 Acetaminophen/ Hydrocodone Bitart ([place] 5-325 Mg) 1 tab Q6H PRN PO PAIN Last administered on 03/03/17 09:58; Start 03/03/17 at 09:45 Gabapentin (Neurontin) 100 mg BID PO Last administered on 03/07/17 08:41; Start 03/03/17 at 10:00 Quetiapine Fumarate 25 mg 25 mg BID@08,16 PO Last administered on 03/07/17 08: 39; Start 03/05/17 at 16:00 Lactated Ringer's (Lr 1000 ml Inj) 1,000 ml @ 30 mls/hr Q24H PRN IV SEE LABEL COMMENTS; Start 03/06/17 at 02:45; Stop 03/09/17 at 02:44 Miscellaneous Information ALL NURSING DEPARTME... UNSCH PRN OTHER SEE LABEL COMMENTS; Start 03/06/17 at 16:00; Stop 03/07/17 at 15:59 Patient Medication Teaching (Coumadin Booklet) 1 ONCE ONCE OTHER Last administered on 03/06/17 15:59; Start 03/06/17 at 16:00; Stop 03/06/17 at 16:01 ; Status DC A/P Assessment and Plan Questionable hematemesis - only once during hospitalization -+ Hemoccult. -hemoglobin has been stable while hospitalized.. -Patient refused EGD twice. -We any active bleed since her hemoglobin has been stable and there has not been any other witnessed episode. She continues to refuse EGD. Patient can have this done as outpatient if she decides to change her mind. At the moment she is stable. UTI -Urine cultures grew Pseudomonas and Escherichia coli. -Patient is asymptomatic but no fevers. -Due to multidrug-resistant organism infectious disease consulted. -on cefepime 2 g IV daily renally dose. -ID consulted. Per ID antibiotics for 7 days and replace gates. Last day of cefepime dose will be on 03/09/2017. -Patient continues to refuse Gates placement. -Will consult neurologist in regards to her Gates to see if she can have a voiding trial. generalized weakness/deconditioned. -PT/OT consulted. -I spoke to physical therapist this morning and patient is able to ambulate on her own without assistance. Patient is manipulative and does not participate in physical therapist. I told patient today that this is part of her treatment regimen and this is why she is here and that she has participate with physical therapist so that she can get better. Acute on chronic renal failure -IMPROVING. - Due to bladder outlet obstruction - Ureteropelvicaliectasis bilaterally -Per urologist keep Gates in and patient to follow-up as outpatient. -Since patient has been hospitalized multiple times and has not been able to see a urologist as outpatient will consult Dr. Markham in regards to this especially patient has a UTI this seems to be multidrug-resistant organism. Right arm nonocclusive DVT in the distal right brachial vein -refused coumadin despite the benefits. - repeat US shows nonocclusive clot in brachial vein and she continue to refuse treatment. Mildly comminuted and slightly displaced fracture through the Left proximal metadiaphysis of the first metacarpal - Ortho consult - Dr. Kuo recommends nonoperative management with thumb spica splint Hypertension -uncontrolled but better controlled that prior admission. -on lisinopril and amlodipine. DM type 2 -on low dose SSI. Secondary hyperparathyroidism - cont cacitriol. Noncompliant -Psych consulted since patient behavior is interfering with her care. -Possible dx of personality disorder/ dysthymia -recommend seroquel. DVT prophylaxis -declined her coumadin Discharge Planning Patient is manipulative and does not want to participate in any treatment which also includes physical therapist. Per physical therapist patient is walking on her own. Once urologist sees patients and able to set up cefepime patient can be discharged to home. If we are unable to set up cefepime then patient will stay in the hospital after she completes her course of antibiotics in which last day of IV antibiotics on . Jen Rosado MD Mar 07, 2017 09:37
[2017-03-07 12:29] LABS: INTERNATIONAL NORMALIZED RATIO 1.4 RATIO; PROTHROMBIN TIME - PATIENT 15.7 SEC (9.8-11.6)
[2017-03-07] MEDS ORDERED: LORazepam 2 MG/ML VIAL IM ONE (16:45)
[2017-03-07] MEDS: WARFARIN SOD 5 MG TAB PO SCH (17:02)
--- NOTE | 2017-03-07 18:54 | MB ---
cc: TERELL QUINTANILLA DATE OF CONSULTATION: 03/07/2017 REASON FOR CONSULTATION: HISTORY OF PRESENT ILLNESS: Ms. Marie is an obese 51-year-old female who was recently admitted after being admitted previously last month with renal failure, urinary retention, requiring a Goddard catheter. She also has a history of right arm, nonocclusive DVT and is on Coumadin. At the time on last admission one month ago, the Goddard catheter was removed, and then she was voiding and at some point the Goddard catheter was reinserted. She was noted to have a recent urinary tract infection on 02/27/17 with Pseudomonas and E. Coli. On the CT scan from 02/16/2017, she had a large nonobstructing left renal calculus which is approximately 10 millimeters in size. She also has severe ureteral pelvocaliectasis bilaterally and a calcified right adrenal mass measuring 3.6 cm. The Goddard was changed out at the bedside today. Her creatinine today is 1.98. ALLERGIES CODEINE. SINEQUAN MDRO PAST MEDICAL HISTORY: 1. Hypertension. 2. Diabetes. 3. Morbid obesity. 4. Renal insufficiency. 5. Anemia. 6. Urinary retention. 7. DVT of the right arm. 8. Gastroparesis. 9. Kidney stones. 10. Neuropathy. PAST SURGICAL HISTORY: 1. Lithotripsy 2. Cholecystectomy 3. Tonsillectomy. MEDICATIONS: Please refer to the chart. SOCIAL HISTORY: She currently lives at home. She denies any smoking, drinking or using drugs. FAMILY HISTORY: Notable for history of stones. REVIEW OF SYSTEMS: Denies chest pain or shortness of breath. Denies abdominal pain. Denies bleeding disturbances, gait disturbances, skin lesions or skin cancer. Denies heat or cold intolerance. VITAL SIGNS: Temperature 97.1, heart rate 90, respiratory rate 18, blood pressure 107/63. GENERAL: An obese 51 year-old female in no acute distress. HEENT: Normocephalic, atraumatic. Pupils equal, round and reactive to light. Extraocular movements intact. NECK: Supple. HEART: Regular rate and rhythm. LUNGS: Clear. ABDOMEN: Soft, non-tender, non-distended. EXTREMITIES: No cyanosis, clubbing or edema. Goddard catheter was changed without difficulty at the bedside. ASSESSMENT/PLAN: The patient is a 51 year-old obese female with urinary retention with acute renal failure. Will maintain Goddard catheter for now. Will need outpatient treatment for her left renal stone. May need urodynamic to determine why she is not voiding. This could be secondary to her diabetic neuropathy and morbid obesity. Will follow with you. Thank you for the consult and allowing me to participate in the care of this patient. Geovani VILLEGAS /5:25 PM /5:35 PM
[2017-03-07 23:26] LABS: BACTERIA, URINE RARE /hpf; BLOOD, URINE SMALL (NEG); COMMENT (UR) CATH-CULTURE IND; CULTURE IF INDICATED CATH CULTURE IND; GLUCOSE,URINE NEG (NEG); KETONE, URINE TRACE mg/dL (NEG); NITRITE,URINE NEG (NEG); SQUAMOUS EPITHELIAL CELL URINE 1 /hpf (0-5); URINE COLOR YELLOW (YELLW/STRAW)
[2017-03-08] VITALS: BP 116/67; PULSE 96; RESP 20; TEMP 96.7; O2SAT 98
[2017-03-08 04:00] VITALS: BP 107/65; PULSE 110; RESP 20; TEMP 98.6; O2SAT 97
[2017-03-08] MEDS: ONDANSETRON HCL 4 MG/2 ML VIAL IV PUSH PRN ×2 (04:43→08:10)
[2017-03-08] MEDS: INSULIN ASPART SUPPLEMENTAL SCALE SQ SCH ×4 (06:14→21:00)
[2017-03-08 08:00] VITALS: BP 113/67; PULSE 93; RESP 18; TEMP 97.7; O2SAT 97
[2017-03-08] MEDS: CEFEPIME INJ 2,000 MG in SODIUM CHLORIDE 0.9% INJ 100 ML IV SCH (08:09)
[2017-03-08] MEDS: PANTOPRAZOLE SODIUM 40 MG VIAL IV PUSH SCH ×2 (08:09→21:15)
[2017-03-08] MEDS: GABAPENTIN 100 MG CAP PO SCH ×2 (08:10→21:15)
[2017-03-08] MEDS: QUEtiapine FUMARATE 25 MG TAB PO SCH ×2 (08:10→16:55)
[2017-03-08] MEDS: LISINOPRIL 5 MG TAB PO SCH ×2 (08:10→21:00)
[2017-03-08] MEDS: CALCITRIOL 0.25 MCG CAP PO SCH (08:10)
[2017-03-08] MEDS: SODIUM CHLORIDE 0.9% FLUSH 10 ML FLUSH IV FLUSH SCH ×2 (08:11→21:16)
[2017-03-08 08:27] LABS: INTERNATIONAL NORMALIZED RATIO 1.7 RATIO
--- NOTE | 2017-03-08 09:40 | HHI.PR ---
Subjective Remarks f/u for UTI, noncompliance patient stated she has emesis this morning. d/w nurse stated it was very little with crackers. Denied any abdominal pain. gates changed yesterday by Dr. Blanca. remains afebrile. No GI bleed. Objective Vitals Vital Signs Date Time Temp Pulse Resp B/P Pulse Ox O2 Delivery O2 Flow Rate FiO2 03/08/17 08:00 97.7 93 18 113/67 97 03/08/17 04:00 98.6 110 20 107/65 97 03/08/17 00:00 96.7 96 20 116/67 98 03/07/17 20:06 98 03/07/17 20:00 96.6 5 20 124/67 100 03/07/17 16:00 97.1 90 18 107/63 96 03/07/17 12:00 97.5 94 18 109/57 96 I/O 03/07/17 03/07/17 03/07/17 03/08/17 03/08/17 03/08/17 07:00 15:00 23:00 07:00 15:00 23:00 Intake Total 240 ml 340 ml 240 ml 240 ml Output Total 700 ml 700 ml 250 ml 350 ml Balance -460 ml -360 ml -10 ml -110 ml Intake Oral 240 ml 240 ml 240 ml 240 ml IV Total 100 ml Output Urine Total 700 ml 700 ml 250 ml 350 ml # Bowel Movements 0 0 Result Diagram: 03/06/17 0510 03/06/17 0510 Objective Remarks GENERAL: in NAD CARDIOVASCULAR: Regular rate and rhythm without murmurs, gallops, or rubs. RESPIRATORY: Breath sounds equal bilaterally. No accessory muscle use. GASTROINTESTINAL: Abdomen soft, non-tender, nondistended. MUSCULOSKELETAL: No cyanosis, or edema. BACK: Nontender without obvious deformity. No CVA tenderness. Medications and IVs Current Medications Sodium Chloride (NS Flush) 2 ml UNSCH PRN IV FLUSH FLUSH AFTER USING IV ACCESS ; Start 02/27/17 at 22:15 Sodium Chloride (NS Flush) 2 ml BID IV FLUSH Last administered on 03/08/17t 08: 11; Start 02/28/17 at 09:00 Naloxone HCl (Narcan Inj) 0.4 mg UNSCH PRN IV SEE LABEL COMMENTS; Start at 22:15 Amlodipine Besylate (Norvasc) 10 mg DAILY PO Last administered on 03/08/17 08: 10; Start 02/28/17 at 11:00 Calcitriol (Rocaltrol) 0.5 mcg DAILY PO Last administered on 03/08/17 08:10; Start 02/28/17 at 11:00 Lisinopril (Prinivil) 10 mg BID PO Last administered on 03/08/17 08:10; Start 02/28/17 at 11:00 Warfarin Sodium (Coumadin) 5 mg DAILY@16 PO Last administered on 03/07/17 17: 02; Start 03/01/17 at 16:00 Ondansetron HCl (Zofran Inj) 4 mg Q6HR PRN IV PUSH nausea/vomiting Last administered on 03/08/17 08:10; Start 03/02/17 at 05:00 Loperamide HCl (Imodium) 4 mg ONCE ONCE PO Last administered on 03/02/17 05:07 ; Start 03/02/17 at 05:00; Stop 03/02/17 at 05:02; Status DC Pantoprazole Sodium 40 mg 40 mg Q24H IV PUSH ; Start 03/02/17 at 06:00; Stop 03/02 at 06:00; Status DC Pantoprazole Sodium 80 mg/ Sodium Chloride 100 ml @ 10 mls/hr CONTINUOUS IV Last administered on 03/02/17 06:07; Start 03/02/17 at 05:30; Stop 03/02/17 at 08: 50; Status DC Pantoprazole Sodium/Sodium Chloride (Protonix Inj/NS Inj) 35 ml @ 420 mls/hr ONCE ONCE IV Last administered on 03/02/17 06:07; Start 03/02/17 at 05:45; Stop 03/02/17 at 05:49; Status DC Pantoprazole Sodium (Protonix Inj) 40 mg Q12H IV PUSH Last administered on 03/08 08:09; Start 03/02/17 at 09:00 Dextrose (D50w (Vial) Inj) 25 ml UNSCH PRN IV PUSH HYPOGLYCEMIA-SEE COMMENTS; Start 03/02/17 at 09:30 Glucagon (Glucagon Inj) 1 mg UNSCH PRN OTHER HYPOGLYCEMIA-SEE COMMENTS; Start 03/02/17 at 09:30 Insulin Aspart 1 1 ACHS SLIDING SCALE SQ ; Start 03/02/17 at 11:00 Cefepime HCl/ Sodium Chloride (Maxipime Inj/NS Inj) 100 ml @ 200 mls/hr DAILY IV Last administered on 03/08/17 08:09; Start 03/03/17 at 09:00; Stop 03/09/17 at 23:00 Acetaminophen/ Hydrocodone Bitart ([place] 5-325 Mg) 1 tab Q6H PRN PO PAIN Last administered on 03/03/17 09:58; Start 03/03/17 at 09:45 Gabapentin (Neurontin) 100 mg BID PO Last administered on 03/08/17 08:10; Start 03/03/17 at 10:00 Quetiapine Fumarate 25 mg 25 mg BID@08,16 PO Last administered on 03/08/17 08: 10; Start 03/05/17 at 16:00 Lactated Ringer's (Lr 1000 ml Inj) 1,000 ml @ 30 mls/hr Q24H PRN IV SEE LABEL COMMENTS; Start 03/06/17 at 02:45; Stop 03/09/17 at 02:44 Miscellaneous Information ALL NURSING DEPARTME... UNSCH PRN OTHER SEE LABEL COMMENTS; Start 03/06/17 at 16:00; Stop 03/07/17 at 15:59; Status DC Patient Medication Teaching (Coumadin Booklet) 1 ONCE ONCE OTHER Last administered on 03/06/17 15:59; Start 03/06/17 at 16:00; Stop 03/06/17 at 16:01 ; Status DC Lorazepam (Ativan Inj) 1 mg ONCE ONCE IM Last administered on 03/07/17 17:03 ; Start 03/07/17 at 16:45; Stop 03/07/17 at 16:46; Status DC A/P Assessment and Plan Questionable hematemesis - only once during hospitalization -+ Hemoccult. -hemoglobin has been stable while hospitalized.. -Patient refused EGD twice. -We any active bleed since her hemoglobin has been stable and there has not been any other witnessed episode. She continues to refuse EGD. Patient can have this done as outpatient if she decides to change her mind. At the moment she is stable. UTI -Urine cultures grew Pseudomonas and Escherichia coli. -Patient is asymptomatic but no fevers. -Due to multidrug-resistant organism infectious disease consulted. -on cefepime 2 g IV daily renally dose. -ID consulted. Per ID antibiotics for 7 days and replace gates. Last day of cefepime dose will be on 03/09/2017. -Gates replaced by Dr. Blanca yesterday. generalized weakness/deconditioned. -PT/OT consulted. -Per PT patient able to ambulate but keeps refusing. Her strength as intact. Acute on chronic renal failure -IMPROVING. - Due to bladder outlet obstruction - Ureteropelvicaliectasis bilaterally -Per urologist keep Gates in and patient to follow-up as outpatient. gates replace by Dr. Blanca yesterday. Right arm nonocclusive DVT in the distal right brachial vein -refused coumadin despite the benefits. - repeat US shows nonocclusive clot in brachial vein and she continue to refuse treatment. Mildly comminuted and slightly displaced fracture through the Left proximal metadiaphysis of the first metacarpal - Ortho consult - Dr. Kuo recommends nonoperative management with thumb spica splint Hypertension -uncontrolled but better controlled that prior admission. -on lisinopril and amlodipine. DM type 2 -on low dose SSI. Secondary hyperparathyroidism - cont cacitriol. Noncompliant -Psych consulted since patient behavior is interfering with her care. -Possible dx of personality disorder/ dysthymia. -recommend seroquel. DVT prophylaxis -declined her coumadin Discharge Planning Patient is manipulative and does not want to participate in any treatment which also includes physical therapist. Per PT she can ambulate and her strength is intact. Patient can be discharge with home health after completing her IV antibiotic treatment which will be on 03/09/2017. Jen Rosado MD Mar 08, 2017 09:40
[2017-03-08 12:00] VITALS: BP 117/73; PULSE 90; RESP 18; TEMP 96.6; O2SAT 97
[2017-03-08] MEDS: WARFARIN SOD 5 MG TAB PO SCH (16:56)
[2017-03-08 19:57] VITALS: PULSE 89
[2017-03-08 20:11] VITALS: BP 99/55; PULSE 80; RESP 18; TEMP 97.5; O2SAT 97
[2017-03-09] VITALS (7 sets, daily range): BP systolic 70–118; BP diastolic 45–60; PULSE 82–99; RESP 16–20; TEMP 95.3–97.8; O2SAT 94–99
[2017-03-09] MEDS: INSULIN ASPART SUPPLEMENTAL SCALE SQ SCH ×4 (05:07→19:53)
[2017-03-09] MEDS: QUEtiapine FUMARATE 25 MG TAB PO SCH ×2 (08:00→16:00)
[2017-03-09] MEDS: LISINOPRIL 5 MG TAB PO SCH (09:00)
[2017-03-09] MEDS: CALCITRIOL 0.25 MCG CAP PO SCH (09:04)
[2017-03-09] MEDS: CEFEPIME INJ 2,000 MG in SODIUM CHLORIDE 0.9% INJ 100 ML IV SCH (09:04)
[2017-03-09] MEDS: GABAPENTIN 100 MG CAP PO SCH ×2 (09:05→19:54)
[2017-03-09] MEDS: PANTOPRAZOLE SODIUM 40 MG VIAL IV PUSH SCH ×2 (09:05→19:54)
[2017-03-09] MEDS: SODIUM CHLORIDE 0.9% FLUSH 10 ML FLUSH IV FLUSH SCH ×2 (09:05→19:53)
--- NOTE | 2017-03-09 09:41 | HHI.FF ---
Face to Face Verification Diagnosis: (1) Closed fracture of first metacarpal bone of left hand (2) Diabetes mellitus (3) Morbid obesity with BMI of 45.0-49.9, adult (4) Acute renal failure (5) Obstructive uropathy (6) Generalized weakness Home Health Nursing Order: Medical education Nursing assessment with vital signs Goddard catheter maintenance I have seen patient Tejas Marie on 03/09/17. My clinical findings support the need for the requested home health care services because: Deconditioned w/ increased weakness Need for psychosocial assistance High risk of falls I certify that my clinical findings support that this patient is homebound because: Unsteady gait/balance Unable to use public transportation Vee Werner MD Mar 09, 2017 09:41
[2017-03-09] MEDS ORDERED: LACTATED RINGER'S 1000 ML INJ 1,000 ML IV ONE (09:45)
[2017-03-09 10:26] LABS: HEMATOCRIT 33.8 % (35.0-46.0); MEAN CELL VOLUME 85.1 FL (80.0-100.0); MEAN CORPUSCULAR HEMOGLOBIN 26.6 PG (27.0-34.0); MEAN CORPUSCULAR HGB CONC 31.3 % (32.0-36.0); PLATELET COUNT 178 TH/MM3 (150-450); RED BLOOD COUNT 3.97 MIL/MM3 (4.00-5.30); RED CELL DISTRIBUTION WIDTH 15.6 % (11.6-17.2); REVIEW FLAG FINAL; WHITE BLOOD COUNT 8.3 TH/MM3 (4.0-11.0)
[2017-03-09 11:06] LABS: BICARBONATE 17.4 MEQ/L (21.0-32.0); POTASSIUM 4.5 MEQ/L (3.5-5.1)
[2017-03-09] MEDS: WARFARIN SOD 5 MG TAB PO SCH (16:00)
[2017-03-09] MEDS: SODIUM CHLOR 0.9% 1000 ML INJ 1,000 ML IV SCH (16:16)
--- NOTE | 2017-03-09 16:19 | HHI.PR ---
Subjective Remarks Patient states that she still feels weak and not as strong as she was prior to coming to the hospital. She states she is trying to work with physical therapy. The patient denies pain. The patient was noted to have an episode of hypotension this morning at 70/40 for which I was not called. BMP shows acute worsening of creatinine. The patient does not think that she has been drinking less however the nurse also notes that her blood sugars have been running slightly low around 70 today. The patient denies nausea vomiting or diarrhea. Objective Vitals Vital Signs Date Time Temp Pulse Resp B/P Pulse Ox O2 Delivery O2 Flow Rate FiO2 03/09/17 12:00 95.3 97 16 118/53 97 03/09/17 08:00 97.0 82 17 70/45 96 03/09/17 04:30 96.5 94 17 110/56 96 03/09/17 00:27 97.8 82 16 94/50 94 03/08/17 20:11 97.5 80 18 99/55 97 03/08/17 19:57 89 I/O 03/08/17 03/08/17 03/08/17 03/09/17 03/09/17 03/09/17 07:00 15:00 23:00 07:00 15:00 23:00 Intake Total 240 ml 240 ml 360 ml 240 ml 120 ml Output Total 350 ml 200 ml 480 ml 300 ml 400 ml Balance -110 ml 40 ml -120 ml -60 ml -280 ml Intake Oral 240 ml 240 ml 360 ml 240 ml 120 ml Output Urine Total 350 ml 200 ml 480 ml 300 ml 400 ml # Bowel Movements 0 0 Result Diagram: 03/09/17 1012 03/09/17 1012 Objective Remarks GENERAL: Well-nourished, well-developed obese middle-aged female patient. SKIN: Warm and dry. HEAD: Normocephalic. EYES: No scleral icterus. No injection or drainage. NECK: Supple, trachea midline. No JVD or lymphadenopathy. CARDIOVASCULAR: Regular rate and rhythm without murmurs, gallops, or rubs. RESPIRATORY: Breath sounds equal bilaterally. No accessory muscle use. GASTROINTESTINAL: Abdomen soft, non-tender, nondistended. EXTREMITIES: No cyanosis, or edema. NEUROLOGICAL: Awake, alert, and oriented x 3. Non-focal. Generalized weakness. A/P Problem List: (1) Acute renal failure ICD Code: N17.9 Status: Acute (2) Generalized weakness ICD Code: R53.1 Status: Acute (3) Obstructive uropathy ICD Code: N13.9 Status: Acute (4) Diabetes mellitus ICD Code: E11.9 Status: Chronic (5) Borderline personality disorder ICD Code: F60.3 Status: Acute (6) Neurogenic bladder ICD Code: N31.9 Status: Acute (7) Hypertension ICD Code: I10 Status: Acute (8) Morbid obesity with BMI of 45.0-49.9, adult ICD Code: E66.01 Status: Acute (9) Urinary tract infection ICD Code: N39.0 Status: Acute (10) Anemia ICD Code: D64.9 Status: Acute (11) DVT (deep venous thrombosis) ICD Code: I82.409 Status: Acute (12) CKD stage 3 due to type 2 diabetes mellitus ICD Code: E11.22 Status: Acute (13) Physical deconditioning ICD Code: R53.81 Status: Acute (14) Dehydration ICD Code: E86.0 Status: Acute (15) Secondary hyperparathyroidism (of renal origin) ICD Code: N25.81 Status: Chronic (16) Closed fracture of first metacarpal bone of left hand ICD Code: S62.202A Status: Acute (17) Hematemesis ICD Code: K92.0 Status: Acute Assessment and Plan UTI- catheter associated, Gates present on admission. Pseudomonas and Escherichia coli. -Due to multidrug-resistant organism infectious disease consulted. -on cefepime 2 g IV daily renally dose. -ID following/Dr. Tay -UA 03/07 still appears dirty and cultures with gram-negative alfredo species -Gates replaced by Dr. Blanca on 03/07. Hematemesis 1 during this hospitalization - Hemoccult and gastro-cult were positive however hemoglobin has been stable. Patient has refused EGD twice. Continue Protonix. generalized weakness/deconditioned. -Per PT notes she is able to transfer from sit to stand with minimal to standby assist and go from standing to sitting with contact guard and ambulates about 20 feet. At times patient refuses PT. Continue PT daily. Acute on chronic renal failure due to acute urinary retention (previous admission) - creatinine has again increased today I suspect secondary to diminished by mouth intake versus the low BP overnight and this morning. Patient encouraged him to increase by mouth fluids. I have ordered 1 L bolus of LR followed by an NS 100 MLS per hour. She is nonoliguric. - bladder outlet obstruction - versus neurogenic bladder. - Ureteropelvicaliectasis bilaterally -Per urologist keep Gates in and patient to follow-up as outpatient. gates replace by Dr. Blanca on 03/07. Right arm nonocclusive DVT in the distal right brachial vein - patient previously refused Coumadin now appears to be taking it. - Pharmacy consulted - INR is 1.7 Mildly comminuted and slightly displaced fracture through the Left proximal metadiaphysis of the first metacarpal - Ortho consult - Dr. Kuo recommends nonoperative management with thumb spica splint Hypertension-BP low, hold lisinopril and amlodipine. DM type 2 - hypoglycemia - persistent throughout hospitalization - will check A1c. -on low dose SSI. Secondary hyperparathyroidism hypocalcemia - cont cacitriol. Noncompliant -Psych consulted since patient behavior is interfering with her care at times. -Possible dx of personality disorder/ dysthymia. -recommended seroquel. Held this morning due to hypotension. Hyotension this morning and last night - again suspect secondary to decreased by mouth intake. This has improved with IV fluids. Hold Norvasc and lisinopril. Monitor blood pressure and urine output. Repeat BMP in the morning. DVT prophylaxis -declined her coumadin Discharge Planning Patient will be discharged home with home health care when stable for discharge. She lives with her elderly mother and a roommate. Medicaid will not cover her to have physical therapy at the house. Vee Werner MD Mar 09, 2017 16:19
[2017-03-10] VITALS (7 sets, daily range): BP systolic 103–129; BP diastolic 52–91; PULSE 94–101; RESP 16–20; TEMP 95.3–97.9; O2SAT 94–98
[2017-03-10] MEDS: SODIUM CHLOR 0.9% 1000 ML INJ 1,000 ML IV SCH ×3 (01:33→22:33)
[2017-03-10] MEDS: INSULIN ASPART SUPPLEMENTAL SCALE SQ SCH ×4 (04:30→20:51)
[2017-03-10 05:43] LABS: AUTOMATED NEUTROPHIL # 4.5 TH/MM3 (1.8-7.7); BASOPHIL # 0.1 TH/MM3 (0-0.2); BASOPHIL % 1.2 % (0.0-2.0); EOSINOPHIL # 0.3 TH/MM3 (0-0.4); EOSINOPHIL % 3.7 % (0.0-4.0); HEMATOCRIT 31.5 % (35.0-46.0); HEMO FLAGS DIFF FINAL; LYMPH % 22.5 % (9.0-44.0); LYMPHOCYTE # 1.6 TH/MM3 (1.0-4.8); MEAN CELL VOLUME 84.4 FL (80.0-100.0); MEAN CORPUSCULAR HEMOGLOBIN 26.8 PG (27.0-34.0); MEAN CORPUSCULAR HGB CONC 31.7 % (32.0-36.0); MONO % 7.1 % (0.0-8.0); NEUT % 65.5 % (16.0-70.0); PLATELET COUNT 167 TH/MM3 (150-450); RED BLOOD COUNT 3.74 MIL/MM3 (4.00-5.30); RED CELL DISTRIBUTION WIDTH 15.1 % (11.6-17.2); WHITE BLOOD COUNT 6.9 TH/MM3 (4.0-11.0)
[2017-03-10 05:58] LABS: INTERNATIONAL NORMALIZED RATIO 2.6 RATIO; PROTHROMBIN TIME - PATIENT 29.5 SEC (9.8-11.6)
[2017-03-10 06:12] LABS: BICARBONATE 19.5 MEQ/L (21.0-32.0); POTASSIUM 4.9 MEQ/L (3.5-5.1)
[2017-03-10] MEDS: SODIUM CHLORIDE 0.9% FLUSH 10 ML FLUSH IV FLUSH SCH ×2 (09:00→20:47)
[2017-03-10] MEDS: CALCITRIOL 0.25 MCG CAP PO SCH (11:44)
[2017-03-10] MEDS: PANTOPRAZOLE SODIUM 40 MG VIAL IV PUSH SCH ×2 (11:44→20:46)
[2017-03-10] MEDS: GABAPENTIN 100 MG CAP PO SCH ×2 (11:44→20:46)
[2017-03-10] MEDS: QUEtiapine FUMARATE 25 MG TAB PO SCH ×2 (11:45→17:41)
--- NOTE | 2017-03-10 13:05 | HHI.PR ---
Subjective Remarks Follow-up for generalized weakness. The patient states that she thinks some of her medications make her sleepy. She has been working with PT. She feels like her strength is okay. She ambulates with a walker at baseline. She has not had any stairs in her home. She reports that her bedtime is close to her bed. She did have problems getting out of her bed prior to admission. Objective Vitals Vital Signs Date Time Temp Pulse Resp B/P Pulse Ox O2 Delivery O2 Flow Rate FiO2 03/10/17 08:00 97.2 94 16 103/57 94 03/10/17 04:00 97.8 95 20 125/63 97 03/10/17 00:00 96.9 97 20 103/52 98 03/09/17 20:00 96.3 96 20 108/56 99 03/09/17 19:46 99 03/09/17 16:00 97.7 95 16 102/60 97 I/O 03/09/17 03/09/17 03/09/17 03/10/17 03/10/17 03/10/17 07:00 15:00 23:00 07:00 15:00 23:00 Intake Total 240 ml 120 ml 1043 ml 1084 ml Output Total 300 ml 400 ml 350 ml 350 ml Balance -60 ml -280 ml 693 ml 734 ml Intake Oral 240 ml 120 ml 240 ml 240 ml IV Total 803 ml 844 ml Output Urine Total 300 ml 400 ml 350 ml 350 ml # Bowel Movements 0 0 0 Result Diagram: 03/10/17 0501 03/10/17 0501 Imaging Last Impressions Upper Extremity Ultrasound 03/04/17 0000 Signed Impressions: Service Date/Time: Saturday, March 04, 2017 18:24 - CONCLUSION: Focal occlusive thrombus in the mid right brachial vein. Ethan Kay MD Objective Remarks GENERAL: Well-developed well-nourished. Morbidly obese. In no acute distress. SKIN: Warm and dry. No lesions noted. HEENT: Normocephalic. Pupils equal and round. Mucous membranes pink and moist. CARDIOVASCULAR: Regular rate and rhythm. No murmur appreciated. RESPIRATORY: No accessory muscle use. Clear to auscultation. Breath sounds equal bilaterally. GASTROINTESTINAL: Abdomen soft, non-tender, nondistended. Bowel sounds x4. MUSCULOSKELETAL: Left wrist in a splint. No clubbing or cyanosis. No edema. NEUROLOGICAL: Awake and alert. No focal neurological deficits. Moves upper and lower extremities spontaneously. Normal speech. PSYCHIATRIC: Appropriate mood and affect; insight and judgment normal. A/P Problem List: (1) Acute renal failure ICD Code: N17.9 Status: Acute (2) Generalized weakness ICD Code: R53.1 Status: Acute (3) Obstructive uropathy ICD Code: N13.9 Status: Acute (4) Diabetes mellitus ICD Code: E11.9 Status: Chronic (5) Borderline personality disorder ICD Code: F60.3 Status: Acute (6) Neurogenic bladder ICD Code: N31.9 Status: Acute (7) Hypertension ICD Code: I10 Status: Acute (8) Morbid obesity with BMI of 45.0-49.9, adult ICD Code: E66.01 Status: Acute (9) Urinary tract infection ICD Code: N39.0 Status: Acute (10) Anemia ICD Code: D64.9 Status: Acute (11) DVT (deep venous thrombosis) ICD Code: I82.409 Status: Acute (12) CKD stage 3 due to type 2 diabetes mellitus ICD Code: E11.22 Status: Acute (13) Physical deconditioning ICD Code: R53.81 Status: Acute (14) Dehydration ICD Code: E86.0 Status: Acute (15) Secondary hyperparathyroidism (of renal origin) ICD Code: N25.81 Status: Chronic (16) Closed fracture of first metacarpal bone of left hand ICD Code: S62.202A Status: Acute (17) Hematemesis ICD Code: K92.0 Status: Acute Assessment and Plan 51-year-old female with a past medical history of DM, HTN, RUQ DVT, bladder outlet obstruction who presented for generalized weakness. UTI- catheter associated, Gates present on admission. Pseudomonas and Escherichia coli. -Due to multidrug-resistant organism infectious disease consulted. -ID following/Dr. Tay -UA 03/07 still appears dirty and cultures with gram-negative alfredo species -ID recommended IV cefepime for at least 7 days, received from 03/03 to 03/09. -Gates replaced by Dr. Blanca on 03/07. Hematemesis 1 during this hospitalization - Hemoccult and gastro-cult were positive however hemoglobin has been stable. Patient has refused EGD twice. Continue Protonix. generalized weakness/deconditioned. -Per PT notes she is able to transfer from sit to stand with minimal to standby assist and go from standing to sitting with contact guard and ambulates about 20 feet. Intermittently refuses PT, encouraged compliance. Continue PT daily. Acute on chronic renal failure due to acute urinary retention (previous admission) - creatinine has again increased, suspect secondary to diminished by mouth intake vs low BP. Encourage to increase by mouth fluids. Continue NS 100 MLS per hour. She is nonoliguric. - bladder outlet obstruction - vs neurogenic bladder. - Ureteropelvicaliectasis bilaterally - Per urologist keep Gates in and patient to follow-up as outpatient. gates replace by Dr. Blanca on 03/07. Right arm nonocclusive DVT in the distal right brachial vein - patient previously refused Coumadin now appears to be taking it. - Pharmacy consulted - INR is now therapeutic Mildly comminuted and slightly displaced fracture through the Left proximal metadiaphysis of the first metacarpal - Ortho consult - Dr. Kuo recommends nonoperative management with thumb spica splint Hypertension-BP low, hold lisinopril and amlodipine. DM type 2 - hypoglycemia - persistent throughout hospitalization - will check A1c. -on low dose SSI. Secondary hyperparathyroidism hypocalcemia - cont calcitriol. Noncompliant -Psych consulted since patient behavior is interfering with her care at times. -Possible dx of personality disorder/ dysthymia. -recommended seroquel. Hyotension - suspect secondary to decreased by mouth intake. This has improved with IV fluids, continue. Hold Norvasc and lisinopril. Monitor blood pressure and urine output. Repeat BMP in the morning. DVT prophylaxis -coumadin Written by Federico Bautista, acting as scribe for Dr. Werner on 03/10/17 at 13:00. Discharge Planning Patient will be discharged home with home health care when stable for discharge. She lives with her elderly mother and a roommate. Medicaid will not cover her to have physical therapy at the house. Patient needs continued PT at this time. This note was transcribed by scribray Bautista. I, Dr. Vee Werner personally performed the history, physical exam, and medical decision making; and confirmed the accuracy of the information in the transcribed note. Authenticated by Dr. Vee Werner on 03/10/17 at 22:28. Federico Bautista Mar 10, 2017 13:05 Vee Werner MD Mar 10, 2017 22:29
[2017-03-10 17:12] LABS: HEMOGLOBIN A1a 2.1 %; HEMOGLOBIN A1b 1.6 %; HEMOGLOBIN Ao 84.5 %; HEMOGLOBIN P3 5.8 %
[2017-03-11] VITALS: BP 137/77; PULSE 99; RESP 20; TEMP 98.4; O2SAT 100
[2017-03-11 04:00] VITALS: BP 117/64; PULSE 101; RESP 20; TEMP 97.4; O2SAT 96
[2017-03-11] MEDS: INSULIN ASPART SUPPLEMENTAL SCALE SQ SCH ×4 (06:05→21:00)
[2017-03-11 07:16] LABS: BICARBONATE 18.1 MEQ/L (21.0-32.0); POTASSIUM 5.1 MEQ/L (3.5-5.1)
[2017-03-11 07:20] LABS: INTERNATIONAL NORMALIZED RATIO 2.6 RATIO; PROTHROMBIN TIME - PATIENT 30.3 SEC (9.8-11.6)
[2017-03-11 08:00] VITALS: BP 125/67; PULSE 106; RESP 16; TEMP 98.3; O2SAT 97
[2017-03-11] MEDS: CALCITRIOL 0.25 MCG CAP PO SCH (09:55)
[2017-03-11] MEDS: GABAPENTIN 100 MG CAP PO SCH ×2 (09:55→21:30)
[2017-03-11] MEDS: SODIUM CHLOR 0.9% 1000 ML INJ 1,000 ML IV SCH ×2 (09:56→14:05)
[2017-03-11] MEDS: PANTOPRAZOLE SODIUM 40 MG VIAL IV PUSH SCH ×2 (09:56→21:30)
[2017-03-11] MEDS: SODIUM CHLORIDE 0.9% FLUSH 10 ML FLUSH IV FLUSH SCH ×2 (09:56→21:00)
[2017-03-11] MEDS: QUEtiapine FUMARATE 25 MG TAB PO SCH ×2 (09:57→16:25)
--- NOTE | 2017-03-11 11:43 | HHI.PR ---
Subjective Remarks Follow-up for generalized weakness. The patient feels a bit sleepy today. She denies any pain. She's been eating well. She worked with PT yesterday. She feels like she's getting a little stronger. Objective Vitals Vital Signs Date Time Temp Pulse Resp B/P Pulse Ox O2 Delivery O2 Flow Rate FiO2 03/11/17 08:00 98.3 106 16 125/67 97 03/11/17 04:00 97.4 101 20 117/64 96 03/11/17 00:00 98.4 99 20 137/77 100 03/10/17 20:00 97.5 100 20 124/91 97 03/10/17 19:55 101 03/10/17 16:00 97.9 95 16 129/76 95 03/10/17 12:00 95.3 97 16 122/60 98 I/O 03/10/17 03/10/17 03/10/17 03/11/17 03/11/17 03/11/17 07:00 15:00 23:00 07:00 15:00 23:00 Intake Total 1084 ml 240 ml 120 ml 1012 ml Output Total 350 ml 600 ml 1200 ml 750 ml 600 ml Balance 734 ml -360 ml -1080 ml 262 ml -600 ml Intake Oral 240 ml 240 ml 120 ml 120 ml IV Total 844 ml 892 ml Output Urine Total 350 ml 600 ml 1200 ml 750 ml 600 ml # Bowel Movements 0 0 Result Diagram: 03/10/17 0501 03/11/17 0623 Imaging Last Impressions Upper Extremity Ultrasound 03/04/17 0000 Signed Impressions: Service Date/Time: Saturday, March 04, 2017 18:24 - CONCLUSION: Focal occlusive thrombus in the mid right brachial vein. Ethan Kay MD Objective Remarks GENERAL: Well-developed well-nourished. Morbidly obese. In no acute distress. SKIN: Warm and dry. No lesions noted. HEENT: Normocephalic. Pupils equal and round. Mucous membranes pink and moist. CARDIOVASCULAR: Regular rate and rhythm. No murmur appreciated. RESPIRATORY: No accessory muscle use. Clear to auscultation. Breath sounds equal bilaterally. GASTROINTESTINAL: Abdomen soft, non-tender, nondistended. Bowel sounds x4. MUSCULOSKELETAL: Left wrist in a splint. No clubbing or cyanosis. No edema. NEUROLOGICAL: Awake and alert. No focal neurological deficits. Moves upper and lower extremities spontaneously. Normal speech. PSYCHIATRIC: Appropriate mood and affect; insight and judgment normal. A/P Problem List: (1) Acute renal failure ICD Code: N17.9 Status: Acute (2) Generalized weakness ICD Code: R53.1 Status: Acute (3) Obstructive uropathy ICD Code: N13.9 Status: Acute (4) Diabetes mellitus ICD Code: E11.9 Status: Chronic (5) Borderline personality disorder ICD Code: F60.3 Status: Acute (6) Neurogenic bladder ICD Code: N31.9 Status: Acute (7) Hypertension ICD Code: I10 Status: Acute (8) Morbid obesity with BMI of 45.0-49.9, adult ICD Code: E66.01 Status: Acute (9) Urinary tract infection ICD Code: N39.0 Status: Acute (10) Anemia ICD Code: D64.9 Status: Acute (11) DVT (deep venous thrombosis) ICD Code: I82.409 Status: Acute (12) CKD stage 3 due to type 2 diabetes mellitus ICD Code: E11.22 Status: Acute (13) Physical deconditioning ICD Code: R53.81 Status: Acute (14) Dehydration ICD Code: E86.0 Status: Acute (15) Secondary hyperparathyroidism (of renal origin) ICD Code: N25.81 Status: Chronic (16) Closed fracture of first metacarpal bone of left hand ICD Code: S62.202A Status: Acute (17) Hematemesis ICD Code: K92.0 Status: Acute Assessment and Plan 51-year-old female with a past medical history of DM, HTN, RUQ DVT, bladder outlet obstruction who presented for generalized weakness. UTI- catheter associated, Goddard present on admission. Pseudomonas and Escherichia coli. -Due to multidrug-resistant organism infectious disease consulted. -ID following/Dr. Tay -UA 03/07 still appears dirty and cultures with gram-negative alfredo species -ID recommended IV cefepime for at least 7 days, received from 03/03 to 03/09. -Goddard replaced by Dr. Blanca on 03/07. Hematemesis 1 during this hospitalization - Hemoccult and gastro-cult were positive however hemoglobin has been stable. Patient has refused EGD twice. Continue Protonix. generalized weakness/deconditioned. -Continue daily PT. Patient appears to be improving from PT notes, walked 40 feet yesterday. Case management consulted for assistance with discharge needs. Acute on chronic renal failure due to acute urinary retention (previous admission) - creatinine has again increased, suspect secondary to diminished by mouth intake vs low BP. Encourage to increase by mouth fluids. Continue NS 100 MLS per hour. She is nonoliguric. - bladder outlet obstruction - vs neurogenic bladder. - Ureteropelvicaliectasis bilaterally - Per urologist keep Goddard in and patient to follow-up as outpatient. Goddard replaced by Dr. Blanca on 03/07. - Patient instructed to follow up with urology at [place] - 03/11 BMP shows improving creatinine Right arm nonocclusive DVT in the distal right brachial vein - patient previously refused Coumadin now appears to be taking it. - Pharmacy consulted - INR is now therapeutic Mildly comminuted and slightly displaced fracture through the Left proximal metadiaphysis of the first metacarpal - Ortho consult - Dr. Kuo recommends nonoperative management with thumb spica splint Hypertension-BP low, hold lisinopril and amlodipine. History of DM type 2 - hypoglycemia persistent throughout hospitalization - hemoglobin A1c 5.9. -Hypoglycemia protocol with SSI if needed. Secondary hyperparathyroidism hypocalcemia - cont calcitriol. Noncompliant -Psych consulted since patient behavior is interfering with her care at times. -Possible dx of personality disorder/ dysthymia. -recommended seroquel. Hypotension - suspect secondary to decreased by mouth intake. This has improved with IV fluids, continue. Holding Norvasc and lisinopril. Monitor blood pressure and urine output. Repeat BMP in the morning. DVT prophylaxis -Coumadin Written by Federico Bautista, acting as scribe for Dr. Werner on 03/11/17 at 11:43. Discharge Planning Patient will be discharged home with home health care when stable for discharge. She lives with her elderly mother and a roommate. Medicaid will not cover her to have physical therapy at the house. Attending Statement This note was transcribed by scribe. I, Dr. Vee Werner personally performed the history, physical exam, and medical decision making; and confirmed the accuracy of the information in the transcribed note. Authenticated by Dr. Vee Werner on 03/11/17 at 22:16. Federico Bautista Mar 11, 2017 11:43 Vee Werner MD Mar 11, 2017 22:17
[2017-03-11 12:00] VITALS: BP 130/67; PULSE 68; RESP 16; TEMP 98.5; O2SAT 97
[2017-03-11 16:00] VITALS: BP 112/59; PULSE 68; RESP 16; TEMP 97.9; O2SAT 98
[2017-03-11] MEDS: WARFARIN SOD 5 MG TAB PO SCH (16:25)
[2017-03-11 20:00] VITALS: BP 116/84; PULSE 94; RESP 20; TEMP 98.3; O2SAT 99
[2017-03-11] MEDS: ACETAMINOPHEN/HYDROcodone 325 MG/5 MG TAB PO PRN (23:44)
[2017-03-12 04:00] VITALS: BP 120/72; PULSE 90; RESP 20; TEMP 97.9; O2SAT 97
[2017-03-12 05:36] LABS: INTERNATIONAL NORMALIZED RATIO 2.8 RATIO; PROTHROMBIN TIME - PATIENT 32.7 SEC (9.8-11.6)
[2017-03-12 05:43] LABS: BASOPHIL # 0.1 TH/MM3 (0-0.2); BASOPHIL % 1.1 % (0.0-2.0); EOSINOPHIL # 0.2 TH/MM3 (0-0.4); EOSINOPHIL % 3.8 % (0.0-4.0); HEMATOCRIT 27.3 % (35.0-46.0); HEMO FLAGS DIFF FINAL; LYMPH % 23.8 % (9.0-44.0); LYMPHOCYTE # 1.5 TH/MM3 (1.0-4.8); MEAN CELL VOLUME 83.5 FL (80.0-100.0); MEAN CORPUSCULAR HEMOGLOBIN 27.5 PG (27.0-34.0); MEAN CORPUSCULAR HGB CONC 32.9 % (32.0-36.0); MONO % 7.2 % (0.0-8.0); NEUT % 64.1 % (16.0-70.0); PLATELET COUNT 154 TH/MM3 (150-450); RED BLOOD COUNT 3.27 MIL/MM3 (4.00-5.30); RED CELL DISTRIBUTION WIDTH 15.3 % (11.6-17.2); WHITE BLOOD COUNT 6.3 TH/MM3 (4.0-11.0)
[2017-03-12 05:48] LABS: BICARBONATE 18.2 MEQ/L (21.0-32.0); POTASSIUM 5.3 MEQ/L (3.5-5.1)
[2017-03-12] MEDS: INSULIN ASPART SUPPLEMENTAL SCALE SQ SCH ×4 (06:18→21:00)
[2017-03-12 08:00] VITALS: BP 136/76; PULSE 92; RESP 16; TEMP 98.3; O2SAT 98
[2017-03-12] MEDS: SODIUM CHLORIDE 0.9% FLUSH 10 ML FLUSH IV FLUSH SCH ×2 (09:00→20:08)
[2017-03-12] MEDS: QUEtiapine FUMARATE 25 MG TAB PO SCH ×2 (10:15→16:01)
[2017-03-12] MEDS: GABAPENTIN 100 MG CAP PO SCH ×2 (10:15→20:07)
[2017-03-12] MEDS: PANTOPRAZOLE SODIUM 40 MG VIAL IV PUSH SCH ×2 (10:15→20:07)
[2017-03-12] MEDS: CALCITRIOL 0.25 MCG CAP PO SCH (10:15)
--- NOTE | 2017-03-12 11:04 | HHI.PR ---
Subjective Remarks Follow up for generalized weakness. PATIENT NOT YET SEEN. Objective Vitals Vital Signs Date Time Temp Pulse Resp B/P Pulse Ox O2 Delivery O2 Flow Rate FiO2 03/12/17 08:00 98.3 92 16 136/76 98 03/12/17 04:00 97.9 90 20 120/72 97 03/11/17 20:00 98.3 94 20 116/84 99 03/11/17 16:00 97.9 68 16 112/59 98 03/11/17 12:00 98.5 68 16 130/67 97 I/O 03/11/17 03/11/17 03/11/17 03/12/17 03/12/17 03/12/17 07:00 15:00 23:00 07:00 15:00 23:00 Intake Total 1012 ml 240 ml 240 ml 0 ml Output Total 750 ml 1100 ml 450 ml 900 ml 600 ml Balance 262 ml -860 ml -210 ml -900 ml -600 ml Intake Oral 120 ml 240 ml 240 ml 0 ml IV Total 892 ml Output Urine Total 750 ml 1100 ml 450 ml 900 ml 600 ml # Bowel Movements 0 Result Diagram: 03/12/17 0350 03/12/17 0350 Imaging Last Impressions Upper Extremity Ultrasound 03/04/17 0000 Signed Impressions: Service Date/Time: Saturday, March 04, 2017 18:24 - CONCLUSION: Focal occlusive thrombus in the mid right brachial vein. Ethan Kay MD Objective Remarks GENERAL: Well-developed well-nourished Morbidly obese middle aged female in [facility]. SKIN: Warm and dry. No lesions noted. HEENT: Normocephalic. Pupils equal and round. Mucous membranes pink and moist. CARDIOVASCULAR: Regular rate and rhythm. No murmur appreciated. RESPIRATORY: No accessory muscle use. Clear to auscultation. Breath sounds equal bilaterally. GASTROINTESTINAL: Abdomen soft, non-tender, nondistended. Bowel sounds x4. MUSCULOSKELETAL: Left wrist in a splint. No clubbing or cyanosis. No edema. NEUROLOGICAL: Awake and alert. No focal neurological deficits. Moves upper and lower extremities spontaneously. Normal speech. PSYCHIATRIC: Appropriate mood and affect; insight and judgment normal. Medications and IVs Current Medications Medications (Trade) Dose Ordered Sig/Jaylen Route Start Time Stop Time Status Last Admin (NS Flush) 2 ml UNSCH PRN IV FLUSH 02/27/17 22:15 (NS Flush) 2 ml BID IV FLUSH 02/28/17 09:00 03/11/17 09:56 (Narcan Inj) 0.4 mg UNSCH PRN IV 02/27/17 22:15 (Norvasc) 10 mg DAILY PO 02/28/17 11:00 Hold 03/09/17 09:05 (Rocaltrol) 0.5 mcg DAILY PO 02/28/17 11:00 03/12/17 10:15 (Prinivil) 10 mg BID PO 02/28/17 11:00 Hold 03/08/17 08:10 (Coumadin) 5 mg DAILY@16 PO 03/01/17 16:00 03/11/17 16:25 (Zofran Inj) 4 mg Q6HR PRN IV PUSH 03/02/17 05:00 03/08/17 08:10 (Protonix Inj) 40 mg Q12H IV PUSH 03/02/17 09:00 03/12/17 10:15 (D50w (Vial) Inj) 25 ml UNSCH PRN IV PUSH 03/02/17 09:30 03/11/17 11:50 (Glucagon Inj) 1 mg UNSCH PRN OTHER 03/02/17 09:30 ([place] 5-325 Mg) 1 tab Q6H PRN PO 03/03/17 09:45 03/11/17 23:44 (Neurontin) 100 mg BID PO 03/03/17 10:00 03/12/17 10:15 Quetiapine Fumarate 25 mg 25 mg BID@08,16 PO 03/05/17 16:00 03/12/17 10:15 Sodium Chloride 1,000 ml @ 100 mls/hr Q10H IV 03/09/17 16:33 03/11/17 14:05 (Coumadin Consult Pharmacy) 0 ml @ 0 mls/hr UNSCH OTHER 03/09/17 15:45 A/P Problem List: (1) Acute renal failure ICD Code: N17.9 Status: Acute (2) Generalized weakness ICD Code: R53.1 Status: Acute (3) Obstructive uropathy ICD Code: N13.9 Status: Acute (4) Diabetes mellitus ICD Code: E11.9 Status: Chronic (5) Borderline personality disorder ICD Code: F60.3 Status: Acute (6) Neurogenic bladder ICD Code: N31.9 Status: Acute (7) Hypertension ICD Code: I10 Status: Acute (8) Morbid obesity with BMI of 45.0-49.9, adult ICD Code: E66.01 Status: Acute (9) Urinary tract infection ICD Code: N39.0 Status: Acute (10) Anemia ICD Code: D64.9 Status: Acute (11) DVT (deep venous thrombosis) ICD Code: I82.409 Status: Acute (12) CKD stage 3 due to type 2 diabetes mellitus ICD Code: E11.22 Status: Acute (13) Physical deconditioning ICD Code: R53.81 Status: Acute (14) Dehydration ICD Code: E86.0 Status: Acute (15) Secondary hyperparathyroidism (of renal origin) ICD Code: N25.81 Status: Chronic (16) Closed fracture of first metacarpal bone of left hand ICD Code: S62.202A Status: Acute (17) Hematemesis ICD Code: K92.0 Status: Acute Assessment and Plan 51-year-old female with a past medical history of DM, HTN, RUQ DVT, bladder outlet obstruction who presented for generalized weakness. UTI- catheter associated, Goddard present on admission. Pseudomonas and Escherichia coli. -Due to multidrug-resistant organism infectious disease consulted. -ID following/Dr. Tay -UA 03/07 still appears dirty and cultures with gram-negative alfredo species -ID recommended IV cefepime for at least 7 days, received from 03/03 to 03/09. -Goddard replaced by Dr. Blanca on 03/07. Hematemesis 1 during this hospitalization - Hemoccult and gastro-cult were positive however hemoglobin has been stable. Patient has refused EGD twice. Continue Protonix. generalized weakness/deconditioned. -Continue daily PT. Patient appears to be improving from PT notes, walked 40 feet. Case management consulted for assistance with discharge needs. Acute on chronic renal failure due to acute urinary retention (previous admission) - creatinine has again increased, suspect secondary to diminished by mouth intake vs low BP. Encourage to increase by mouth fluids. Continue NS 100 MLS per hour. She is nonoliguric. - bladder outlet obstruction - vs neurogenic bladder. - Ureteropelvicaliectasis bilaterally - Per urologist keep Goddard in and patient to follow-up as outpatient. Goddard replaced by Dr. Blanca on 03/07. - Patient instructed to follow up with urology at [place] - 03/11 BMP shows improving creatinine Right arm nonocclusive DVT in the distal right brachial vein - patient previously refused Coumadin now appears to be taking it. - Pharmacy consulted - INR is now therapeutic Mildly comminuted and slightly displaced fracture through the Left proximal metadiaphysis of the first metacarpal - Ortho consult, Dr. Kuo recommends nonoperative management with thumb spica splint Hypertension-BP low, held lisinopril and amlodipine, BP now much improved. History of DM type 2 - hypoglycemia persistent throughout hospitalization - hemoglobin A1c 5.9. -Hypoglycemia protocol with SSI if needed. Secondary hyperparathyroidism hypocalcemia - cont calcitriol. Noncompliant -Psych consulted since patient behavior is interfering with her care at times. -Possible dx of personality disorder/ dysthymia. -recommended seroquel. Hypotension with hx of Hypertension: suspect secondary to decreased by mouth intake. -Improved with IV fluids, continue. -Holding Norvasc and lisinopril. -Monitor blood pressure and urine output. -Repeat BMP today shows improvement Hyperkalemia: K 5.3 today. -giving IVF, repeat K in am DVT prophylaxis -Coumadin Written by Mar Gutierrez, acting as scribe for Dr. Werner on 03/12/17 at Mar Gutierrez PA-C Mar 12, 2017 11:03 Vee Werner MD Mar 12, 2017 11:53
[2017-03-12 12:00] VITALS: BP 139/75; PULSE 91; RESP 20; TEMP 98; O2SAT 99
[2017-03-12] MEDS ORDERED: SODIUM POLYSTYRENE SULFONATE SUSP 15 GM/60 ML CUP PO ONE (12:00)
--- NOTE | 2017-03-12 12:05 | HHI.PR ---
Subjective Remarks Patient denies abdominal pain. She declined physical therapy today stating she needed a break because it was a holiday. Patient was counseled that the only reason she is in the hospital at this point in time is for physical therapy to get stronger and that she really needs to take advantage of that. Patient then began to cry and states that she was afraid of falling. Patient was instructed that physical therapy will be with her and will not allow her to fall and that the time to work on her strength is well she is in the hospital. Patient continued to decline to work with physical therapy today however. Objective Vitals Vital Signs Date Time Temp Pulse Resp B/P Pulse Ox O2 Delivery O2 Flow Rate FiO2 03/12/17 08:00 98.3 92 16 136/76 98 03/12/17 04:00 97.9 90 20 120/72 97 03/11/17 20:00 98.3 94 20 116/84 99 03/11/17 16:00 97.9 68 16 112/59 98 03/11/17 12:00 98.5 68 16 130/67 97 I/O 03/11/17 03/11/17 03/11/17 03/12/17 03/12/17 03/12/17 07:00 15:00 23:00 07:00 15:00 23:00 Intake Total 1012 ml 240 ml 240 ml 0 ml Output Total 750 ml 1100 ml 450 ml 900 ml 600 ml Balance 262 ml -860 ml -210 ml -900 ml -600 ml Intake Oral 120 ml 240 ml 240 ml 0 ml IV Total 892 ml Output Urine Total 750 ml 1100 ml 450 ml 900 ml 600 ml # Bowel Movements 0 Result Diagram: 03/12/17 0350 03/12/17 0350 Objective Remarks GENERAL: Well-nourished, well-developed obese middle-aged female patient. SKIN: Warm and dry. HEAD: Normocephalic. EYES: No scleral icterus. No injection or drainage. NECK: Supple, trachea midline. No JVD or lymphadenopathy. CARDIOVASCULAR: Regular rate and rhythm without murmurs, gallops, or rubs. RESPIRATORY: Breath sounds equal bilaterally. No accessory muscle use. GASTROINTESTINAL: Abdomen soft, non-tender, nondistended. EXTREMITIES: No cyanosis, or edema. NEUROLOGICAL: Awake, alert, and oriented x 3. Non-focal. Generalized weakness. A/P Problem List: (1) Acute renal failure ICD Code: N17.9 Status: Acute (2) Generalized weakness ICD Code: R53.1 Status: Acute (3) Obstructive uropathy ICD Code: N13.9 Status: Acute (4) Diabetes mellitus ICD Code: E11.9 Status: Chronic (5) Borderline personality disorder ICD Code: F60.3 Status: Acute (6) Neurogenic bladder ICD Code: N31.9 Status: Acute (7) Hypertension ICD Code: I10 Status: Acute (8) Morbid obesity with BMI of 45.0-49.9, adult ICD Code: E66.01 Status: Acute (9) Urinary tract infection ICD Code: N39.0 Status: Acute (10) Anemia ICD Code: D64.9 Status: Acute (11) DVT (deep venous thrombosis) ICD Code: I82.409 Status: Acute (12) CKD stage 3 due to type 2 diabetes mellitus ICD Code: E11.22 Status: Acute (13) Physical deconditioning ICD Code: R53.81 Status: Acute (14) Dehydration ICD Code: E86.0 Status: Acute (15) Secondary hyperparathyroidism (of renal origin) ICD Code: N25.81 Status: Chronic (16) Closed fracture of first metacarpal bone of left hand ICD Code: S62.202A Status: Acute (17) Hematemesis ICD Code: K92.0 Status: Acute Assessment and Plan UTI- catheter associated, Gates present on admission. Pseudomonas and Escherichia coli. -Due to multidrug-resistant organism infectious disease consulted. -s/p 7 days of cefepime -UA 03/07 ordered by infectious disease still appears dirty and cultures with pseudomonas aeruginosa however less than 10 K and Analisa. This may be contamination as she has no fever, or elevated white blood cell count. I will repeat UA with culture. Start antibiotics if clinical signs of infection. -Gates replaced by Dr. Blanca on 03/07. Hematemesis 1 during this hospitalization - Hemoccult and gastro-cult were positive however hemoglobin has been stable. Patient has refused EGD twice. Continue Protonix. Monitor hemoglobin periodically. Hemoglobin slightly down trended to 9 today. Will repeat CBC in the morning. generalized weakness/deconditioned. -Per PT notes she is able to transfer from sit to stand with minimal to standby assist and go from standing to sitting with contact guard and ambulates about 20 feet. Continue PT daily. Patient at times is noncompliant and has been counseled. Acute on chronic renal failure due to acute urinary retention (previous admission) - creatinine has again increased today I suspect secondary to diminished by mouth intake versus the low BP overnight and this morning. Patient encouraged him to increase by mouth fluids. This is improving, creatinine 2 today. We'll decrease fluids to normal saline at 70 mL per hour. Repeat BMP in the morning. - bladder outlet obstruction - versus neurogenic bladder. - Ureteropelvicaliectasis bilaterally -Per urologist keep Gates in and patient to follow-up as outpatient. gates replace by Dr. Blanca on 03/07. Right arm nonocclusive DVT in the distal right brachial vein diagnosed February 19 - patient previously refused Coumadin now appears to be taking it. - Pharmacy consulted - INR is now therapeutic. -Will need 3 months of anticoagulation for the catheter associated DVT, until the end of April 2017. Mildly comminuted and slightly displaced fracture through the Left proximal metadiaphysis of the first metacarpal - Ortho consult - Dr. Kuo recommends nonoperative management with thumb spica splint Hypertension-BP low, hold lisinopril and amlodipine. DM type 2 - however has hypoglycemia - persistent throughout hospitalization - hemoglobin A1c is only 5. She likely no longer has high insulin requirements due to the decreased renal function. -on low dose SSI. High sugar snacks as needed. Secondary hyperparathyroidism hypocalcemia - cont cacitriol. Mild hyperkalemia. We will give Kayexalate 30 g by mouth on repeat BMP in the morning. Constipation. No bowel movement reported in 5 days. Treat with Kayexalate. Noncompliant -Psych consulted since patient behavior is interfering with her care at times. -Possible dx of personality disorder/ dysthymia. -Continue her Seroquel 25 mg by mouth twice a day per psychiatry DVT prophylaxis On Coumadin which is therapeutic. Discharge Planning Patient will be discharged home with home health care when stable for discharge. She lives with her elderly mother and a roommate. Medicaid will not cover her to have physical therapy at the house. Patient needs continued PT at this time. Patient is very high risk for readmission. She was readmitted within 3 days of prior discharge due to generalized weakness and inability to get up out of bed. Patient unfortunately is not taking full advantage of the physical therapy offered in the hospital. Continue PT daily. Vee Werner MD Mar 12, 2017 12:05
[2017-03-12 13:41] LABS: BACTERIA, URINE RARE /hpf; BLOOD, URINE SMALL (NEG); GLUCOSE,URINE NEG (NEG); KETONE, URINE NEG (NEG); NITRITE,URINE NEG (NEG); SQUAMOUS EPITHELIAL CELL URINE <1 /hpf (0-5); URINE COLOR LIGHT-YELLOW (YELLW/STRAW)
[2017-03-12 13:46] LABS: COMMENT (UR) CATH-CULTURE IND; CULTURE IF INDICATED CATH CULTURE IND
[2017-03-12 16:00] VITALS: BP 137/84; PULSE 96; RESP 20; TEMP 98.3; O2SAT 96
[2017-03-12] MEDS: WARFARIN SOD 5 MG TAB PO SCH (16:01)
[2017-03-12 20:00] VITALS: BP 140/80; PULSE 92; RESP 20; TEMP 98.2; O2SAT 96
[2017-03-12] MEDS: SODIUM CHLOR 0.9% 1000 ML INJ 1,000 ML IV SCH (20:08)
[2017-03-12 22:00] VITALS: PULSE 94
[2017-03-13] VITALS (7 sets, daily range): BP systolic 101–148; BP diastolic 64–78; PULSE 88–98; RESP 12–24; TEMP 97.2–98.4; O2SAT 94–98
[2017-03-13] MEDS ORDERED: diphenhydrAMINE HCL 25 MG CAP PO ONE
[2017-03-13 06:11] LABS: AUTOMATED NEUTROPHIL # 4.1 TH/MM3 (1.8-7.7); BASOPHIL # 0.1 TH/MM3 (0-0.2); BASOPHIL % 1.7 % (0.0-2.0); EOSINOPHIL # 0.3 TH/MM3 (0-0.4); EOSINOPHIL % 4.3 % (0.0-4.0); HEMO FLAGS DIFF FINAL; LYMPH % 22.9 % (9.0-44.0); LYMPHOCYTE # 1.5 TH/MM3 (1.0-4.8); MEAN CELL VOLUME 83.2 FL (80.0-100.0); MEAN CORPUSCULAR HEMOGLOBIN 26.7 PG (27.0-34.0); MEAN CORPUSCULAR HGB CONC 32.1 % (32.0-36.0); MONO % 7.2 % (0.0-8.0); NEUT % 63.9 % (16.0-70.0); PLATELET COUNT 152 TH/MM3 (150-450); RED BLOOD COUNT 3.49 MIL/MM3 (4.00-5.30); RED CELL DISTRIBUTION WIDTH 15.5 % (11.6-17.2); WHITE BLOOD COUNT 6.4 TH/MM3 (4.0-11.0)
[2017-03-13] MEDS: INSULIN ASPART SUPPLEMENTAL SCALE SQ SCH ×4 (06:11→21:00)
[2017-03-13 06:19] LABS: INTERNATIONAL NORMALIZED RATIO 4.1 RATIO; PROTHROMBIN TIME - PATIENT 47.8 SEC (9.8-11.6)
[2017-03-13 06:25] LABS: BICARBONATE 19.4 MEQ/L (21.0-32.0); POTASSIUM 5.9 MEQ/L (3.5-5.1)
[2017-03-13] MEDS: SODIUM CHLORIDE 0.9% FLUSH 10 ML FLUSH IV FLUSH SCH ×2 (09:00→22:54)
[2017-03-13] MEDS: QUEtiapine FUMARATE 25 MG TAB PO SCH ×2 (09:29→16:36)
[2017-03-13] MEDS: GABAPENTIN 100 MG CAP PO SCH ×2 (09:29→22:53)
[2017-03-13] MEDS: CALCITRIOL 0.25 MCG CAP PO SCH (09:29)
[2017-03-13] MEDS: PANTOPRAZOLE SODIUM 40 MG VIAL IV PUSH SCH ×2 (09:30→22:54)
[2017-03-13] MEDS: SODIUM CHLOR 0.9% 1000 ML INJ 1,000 ML IV SCH (09:34)
[2017-03-13] MEDS ORDERED: SODIUM POLYSTYRENE SULFONATE SUSP 15 GM/60 ML CUP PO ONE (11:00)
[2017-03-13] MEDS ORDERED: FUROSEMIDE 40 MG/4 ML VIAL IV PUSH ONE (11:00)
--- NOTE | 2017-03-13 12:27 | HHI.PR ---
Subjective Remarks Follow up for SHELLEY, hyperkalemia and generalized weakness. Patient states she is willing to work with physical therapy today, and she does not wish to go to a SNF, she wants to go home. Encouraged patient to participate in PT in order to be able to go home and function. Discussed potassium results with patient, and the need for some medication to make her have a BM to lower potassium level, she states she had a BM last night. She agrees to taking one more dose of medication. She denies any pain at this time, no complaints over night were noted. Patient's mom had made an appt with a PCP in [facility] for to establish care for patient. Objective Objective Vitals Vital Signs Date Time Temp Pulse Resp B/P Pulse Ox O2 Delivery O2 Flow Rate FiO2 03/13/17 08:00 97.6 98 12 105/73 98 03/13/17 04:00 98.0 88 20 130/74 95 03/13/17 00:00 97.4 90 20 134/78 94 03/12/17 22:00 94 03/12/17 20:00 98.2 92 20 140/80 96 03/12/17 16:00 98.3 96 20 137/84 96 I/O 03/12/17 03/12/17 03/12/17 03/13/17 03/13/17 03/13/17 07:00 15:00 23:00 07:00 15:00 23:00 Intake Total 0 ml 350 ml 3279 ml 1100 ml Output Total 900 ml 1050 ml 700 ml 750 ml Balance -900 ml -700 ml 2579 ml 350 ml Intake Oral 0 ml 350 ml 440 ml 480 ml IV Total 2839 ml 620 ml Output Urine Total 900 ml 1050 ml 700 ml 750 ml # Bowel Movements 0 0 Result Diagram: 03/13/1725 03/13/17524 Objective Remarks GENERAL: Well-nourished, well-developed obese middle-aged female patient. SKIN: Warm and dry. HEAD: Normocephalic. EYES: No scleral icterus. No injection or drainage. NECK: Supple, trachea midline. No JVD or lymphadenopathy. CARDIOVASCULAR: Regular rate and rhythm without murmurs, gallops, or rubs. RESPIRATORY: Breath sounds equal bilaterally. No accessory muscle use. GASTROINTESTINAL: Abdomen soft, non-tender, nondistended. EXTREMITIES: No cyanosis, or edema. NEUROLOGICAL: Awake, alert, and oriented x 3. Non-focal. Generalized weakness. Medications and IVs Current Medications Medications (Trade) Dose Ordered Sig/Jaylen Route Start Time Stop Time Status Last Admin (NS Flush) 2 ml UNSCH PRN IV FLUSH 02/27/17 22:15 (NS Flush) 2 ml BID IV FLUSH 02/28/17 09:00 03/11/17 09:56 (Narcan Inj) 0.4 mg UNSCH PRN IV 02/27/17 22:15 (Norvasc) 10 mg DAILY PO 02/28/17 11:00 Hold 03/09/17 09:05 (Rocaltrol) 0.5 mcg DAILY PO 02/28/17 11:00 03/13/17 09:29 (Prinivil) 10 mg BID PO 02/28/17 11:00 Hold 03/08/17 08:10 (Coumadin) 5 mg DAILY@16 PO 03/01/17 16:00 Hold 03/12/17 16:01 (Zofran Inj) 4 mg Q6HR PRN IV PUSH 03/02/17 05:00 03/08/17 08:10 (Protonix Inj) 40 mg Q12H IV PUSH 03/02/17 09:00 03/13/17 09:30 (D50w (Vial) Inj) 25 ml UNSCH PRN IV PUSH 03/02/17 09:30 03/11/17 11:50 (Glucagon Inj) 1 mg UNSCH PRN OTHER 03/02/17 09:30 ([place] 5-325 Mg) 1 tab Q6H PRN PO 03/03/17 09:45 03/11/17 23:44 (Neurontin) 100 mg BID PO 03/03/17 10:00 03/13/17 09:29 Quetiapine Fumarate 25 mg 25 mg BID@08,16 PO 03/05/17 16:00 03/13/17 09:29 Sodium Chloride 1,000 ml @ 60 mls/hr [id number] IV 03/09/17 16:33 03/13/17 09:34 (Coumadin Consult Pharmacy) 0 ml @ 0 mls/hr UNSCH OTHER 03/09/17 15:45 Urinary Catheter: Yes Assessment to: Continue Gates insert reason: Measure Accurate Output Vascular Central Line Catheter: No A/P Problem List: (1) Acute renal failure ICD Code: N17.9 Status: Acute (2) Generalized weakness ICD Code: R53.1 Status: Acute (3) Obstructive uropathy ICD Code: N13.9 Status: Acute (4) Diabetes mellitus ICD Code: E11.9 Status: Chronic (5) Borderline personality disorder ICD Code: F60.3 Status: Acute (6) Neurogenic bladder ICD Code: N31.9 Status: Acute (7) Hypertension ICD Code: I10 Status: Acute (8) Morbid obesity with BMI of 45.0-49.9, adult ICD Code: E66.01 Status: Acute (9) Urinary tract infection ICD Code: N39.0 Status: Acute (10) Anemia ICD Code: D64.9 Status: Acute (11) DVT (deep venous thrombosis) ICD Code: I82.409 Status: Acute (12) CKD stage 3 due to type 2 diabetes mellitus ICD Code: E11.22 Status: Acute (13) Physical deconditioning ICD Code: R53.81 Status: Acute (14) Dehydration ICD Code: E86.0 Status: Acute (15) Secondary hyperparathyroidism (of renal origin) ICD Code: N25.81 Status: Chronic (16) Closed fracture of first metacarpal bone of left hand ICD Code: S62.202A Status: Acute (17) Hematemesis ICD Code: K92.0 Status: Acute (18) Learning disability ICD Code: F81.9 Status: Chronic Assessment and Plan UTI- catheter associated, Gates present on admission. Pseudomonas and Escherichia coli. -Due to multidrug-resistant organism infectious disease consulted. -s/p 7 days of cefepime -UA 03/07 ordered by infectious disease still appears dirty and cultures with pseudomonas aeruginosa however less than 10 K and Analisa. This may be contamination as she has no fever, or elevated white blood cell count. I will repeat UA with culture. Start antibiotics if clinical signs of infection. -Gates replaced by Dr. Blanca on 03/07, and will follow up outpatient with him. -Home health care will be needed for continuation of gates care Hematemesis 1 during this hospitalization - Hemoccult and gastro-cult were positive however hemoglobin has been stable. Patient has refused EGD twice. Continue Protonix. Monitor hemoglobin periodically. Hemoglobin slightly down trended to 9 today.HGB 9, will continue to monitor. Generalized weakness/deconditioned. -Per PT notes she is able to transfer from sit to stand with minimal to standby assist and go from standing to sitting with contact guard and ambulates about 20 feet. Continue PT daily. Patient at times is noncompliant and has been counseled. Unable to have PT at home, patient states she will work with PT in order to go home. Acute on chronic renal failure due to acute urinary retention (previous admission) - creatinine has again increased today I suspect secondary to diminished by mouth intake versus the low BP overnight and this morning. Patient encouraged him to increase by mouth fluids. This is improving, creatinine 2 today. We'll decrease fluids to normal saline at 70 mL per hour. Repeat BMP in the morning. - bladder outlet obstruction - versus neurogenic bladder. - Ureteropelvicaliectasis bilaterally -Per urologist keep Gates in and patient to follow-up as outpatient. gates replace by Dr. Blanca on 03/07. Right arm nonocclusive DVT in the distal right brachial vein diagnosed February 19 - patient previously refused Coumadin now appears to be taking it. - Pharmacy consulted - INR is now therapeutic. -Will need 3 months of anticoagulation for the catheter associated DVT, until the end of April 2017. -May consider Eliquis so patient does not have to check INR outpatient. Mildly comminuted and slightly displaced fracture through the Left proximal metadiaphysis of the first metacarpal - Ortho consult - Dr. Kuo recommends nonoperative management with thumb spica splint Hypertension-BP low, hold lisinopril and amlodipine. DM type 2 - however has hypoglycemia - persistent throughout hospitalization - hemoglobin A1c is only 5. She likely no longer has high insulin requirements due to the decreased renal function. -on low dose SSI. High sugar snacks as needed. Secondary hyperparathyroidism hypocalcemia - cont cacitriol. Mild hyperkalemia. Potassium 5.9 this AM, another dose of Kayexalate ordered, and IV Lasix. Will recheck potassium at 2pm. Constipation. No bowel movement reported in 5 days. Treat with Kayexalate. Noncompliant -Psych consulted since patient behavior is interfering with her care at times. -Possible dx of personality disorder/ dysthymia. -Continue her Seroquel 25 mg by mouth twice a day per psychiatry Learning disability, patient has had a learning disability since 2nd grade -Cont to educate patient with simple to understand terms -As of now patient refuses SNF, she wants to go home. DVT prophylaxis On Coumadin which is therapeutic. Written by ROMI Zurita acting as scribe for Dr. Werner on 03/10/17 at 11: 53. This note was transcribed by scribe steffi callejas. I, Dr. Vee Werner personally performed the history, physical exam, and medical decision making; and confirmed the accuracy of the information in the transcribed note. Authenticated by Dr. Vee Werner on 03/13/17 at 22:28. Steffi Callejas Mar 13, 2017 12:27 Vee Werner MD Mar 13, 2017 22:28
[2017-03-14] VITALS: BP 118/70; PULSE 88; RESP 20; TEMP 97.4; O2SAT 98
[2017-03-14 04:00] VITALS: BP 114/68; PULSE 86; RESP 20; TEMP 98; O2SAT 97
[2017-03-14 06:35] LABS: INTERNATIONAL NORMALIZED RATIO 3.6 RATIO; PROTHROMBIN TIME - PATIENT 42.5 SEC (9.8-11.6)
[2017-03-14 06:38] LABS: BICARBONATE 18.9 MEQ/L (21.0-32.0); MAGNESIUM 1.4 MG/DL (1.5-2.5); POTASSIUM 4.9 MEQ/L (3.5-5.1)
[2017-03-14 06:44] LABS: BASOPHIL % 0.8 % (0.0-2.0); EOSINOPHIL # 0.2 TH/MM3 (0-0.4); EOSINOPHIL % 3.6 % (0.0-4.0); HEMATOCRIT 30.3 % (35.0-46.0); HEMO FLAGS DIFF FINAL; LYMPH % 23.7 % (9.0-44.0); LYMPHOCYTE # 1.4 TH/MM3 (1.0-4.8); MEAN CELL VOLUME 85.3 FL (80.0-100.0); MEAN CORPUSCULAR HEMOGLOBIN 27.6 PG (27.0-34.0); MEAN CORPUSCULAR HGB CONC 32.4 % (32.0-36.0); MONO % 6.3 % (0.0-8.0); NEUT % 65.6 % (16.0-70.0); PLATELET COUNT 146 TH/MM3 (150-450); RED BLOOD COUNT 3.56 MIL/MM3 (4.00-5.30); RED CELL DISTRIBUTION WIDTH 15.4 % (11.6-17.2); WHITE BLOOD COUNT 6.1 TH/MM3 (4.0-11.0)
[2017-03-14 08:00] VITALS: BP 128/79; PULSE 101; RESP 17; TEMP 97.8; O2SAT 95
[2017-03-14] MEDS: GABAPENTIN 100 MG CAP PO SCH ×2 (08:45→20:49)
[2017-03-14] MEDS: PANTOPRAZOLE SODIUM 40 MG VIAL IV PUSH SCH ×2 (08:45→20:49)
[2017-03-14] MEDS: QUEtiapine FUMARATE 25 MG TAB PO SCH ×2 (08:45→16:00)
[2017-03-14] MEDS: CALCITRIOL 0.25 MCG CAP PO SCH (08:46)
[2017-03-14] MEDS: SODIUM CHLORIDE 0.9% FLUSH 10 ML FLUSH IV FLUSH SCH ×2 (09:00→21:00)
[2017-03-14] MEDS: INSULIN ASPART SUPPLEMENTAL SCALE SQ SCH ×3 (11:00→20:50)
[2017-03-14 12:00] VITALS: BP 125/81; PULSE 98; RESP 18; TEMP 95.8; O2SAT 95
[2017-03-14] MEDS ORDERED: NEUR100C PO (15:59)
[2017-03-14] MEDS ORDERED: CALC.25 PO (15:59)
[2017-03-14 16:00] VITALS: BP 133/75; PULSE 93; RESP 17; TEMP 97.4; O2SAT 97
--- NOTE | 2017-03-14 18:06 | HHI.PR ---
Subjective Remarks Follow up for SHELLEY, hyperkalemia and generalized weakness. Patient has no acute complaints today. She states she is eating and drinking well. Denies any nausea or vomiting. She did ambulate short distance with physical therapy today. She has no other medical complaints at this time. Planning for discharge on as patient has an appointment with her PCP, patient is agreeable to this plan. Objective Vitals Vital Signs Date Time Temp Pulse Resp B/P Pulse Ox O2 Delivery O2 Flow Rate FiO2 03/14/17 16:00 97.4 93 17 133/75 97 03/14/17 12:00 95.8 98 18 125/81 95 03/14/17 08:00 97.8 101 17 128/79 95 03/14/17 04:00 98.0 86 20 114/68 97 03/14/17 00:00 97.4 88 20 118/70 98 03/13/17 22:00 89 03/13/17 20:00 98.4 91 20 120/72 97 I/O 03/13/17 03/13/17 03/13/17 03/14/17 03/14/17 03/14/17 07:00 15:00 23:00 07:00 15:00 23:00 Intake Total 1100 ml 668 ml 840 ml 1204 ml 240 ml Output Total 750 ml 3225 ml 1050 ml 1000 ml Balance 350 ml 668 ml -2385 ml 154 ml -760 ml Intake Oral 480 ml 240 ml 360 ml 440 ml 240 ml IV Total 620 ml 428 ml 480 ml 764 ml Output Urine Total 750 ml 3225 ml 1050 ml 1000 ml # Bowel Movements 0 0 0 0 0 Result Diagram: 03/14/17 0541 03/14/17 0541 Imaging Last Impressions Upper Extremity Ultrasound 03/04/17 0000 Signed Impressions: Service Date/Time: Saturday, March 04, 2017 18:24 - CONCLUSION: Focal occlusive thrombus in the mid right brachial vein. Ethan Kay MD Objective Remarks GENERAL: Well-developed well-nourished Morbidly obese middle aged female in [facility]. SKIN: Warm and dry. No lesions noted. HEENT: Normocephalic. Pupils equal and round. Mucous membranes pink and moist. CARDIOVASCULAR: Regular rate and rhythm. No murmur appreciated. RESPIRATORY: No accessory muscle use. Clear to auscultation. Breath sounds equal bilaterally. GASTROINTESTINAL: Abdomen soft, non-tender, nondistended. Bowel sounds x4. MUSCULOSKELETAL: Left wrist in a splint. No clubbing or cyanosis. No edema. NEUROLOGICAL: Awake and alert. No focal neurological deficits. Moves upper and lower extremities spontaneously. Normal speech. PSYCHIATRIC: Appropriate mood and affect; insight and judgment normal. Medications and IVs Current Medications Medications (Trade) Dose Ordered Sig/Jaylen Route Start Time Stop Time Status Last Admin (NS Flush) 2 ml UNSCH PRN IV FLUSH 02/27/17 22:15 (NS Flush) 2 ml BID IV FLUSH 02/28/17 09:00 03/13/17 22:54 (Narcan Inj) 0.4 mg UNSCH PRN IV 02/27/17 22:15 (Norvasc) 10 mg DAILY PO 02/28/17 11:00 Hold 03/09/17 09:05 (Rocaltrol) 0.5 mcg DAILY PO 02/28/17 11:00 03/14/17 08:46 (Prinivil) 10 mg BID PO 02/28/17 11:00 Hold 03/08/17 08:10 (Coumadin) 5 mg DAILY@16 PO 03/01/17 16:00 Hold 03/12/17 16:01 (Zofran Inj) 4 mg Q6HR PRN IV PUSH 03/02/17 05:00 03/08/17 08:10 (Protonix Inj) 40 mg Q12H IV PUSH 03/02/17 09:00 03/14/17 08:45 (D50w (Vial) Inj) 25 ml UNSCH PRN IV PUSH 03/02/17 09:30 03/11/17 11:50 (Glucagon Inj) 1 mg UNSCH PRN OTHER 03/02/17 09:30 ([place] 5-325 Mg) 1 tab Q6H PRN PO 03/03/17 09:45 03/11/17 23:44 (Neurontin) 100 mg BID PO 03/03/17 10:00 03/14/17 08:45 Quetiapine Fumarate 25 mg 25 mg BID@08,16 PO 03/05/17 16:00 03/14/17 16:00 (Coumadin Consult Pharmacy) 0 ml @ 0 mls/hr UNSCH OTHER 03/09/17 15:45 (Mag-Ox) 400 mg Q12HR PO 03/14/17 21:00 Urinary Catheter: Yes A/P Problem List: (1) Acute renal failure ICD Code: N17.9 Status: Acute (2) Generalized weakness ICD Code: R53.1 Status: Acute (3) Obstructive uropathy ICD Code: N13.9 Status: Acute (4) Diabetes mellitus ICD Code: E11.9 Status: Chronic (5) Borderline personality disorder ICD Code: F60.3 Status: Acute (6) Neurogenic bladder ICD Code: N31.9 Status: Acute (7) Hypertension ICD Code: I10 Status: Acute (8) Morbid obesity with BMI of 45.0-49.9, adult ICD Code: E66.01 Status: Acute (9) Urinary tract infection ICD Code: N39.0 Status: Acute (10) Anemia ICD Code: D64.9 Status: Acute (11) DVT (deep venous thrombosis) ICD Code: I82.409 Status: Acute (12) CKD stage 3 due to type 2 diabetes mellitus ICD Code: E11.22 Status: Acute (13) Physical deconditioning ICD Code: R53.81 Status: Acute (14) Dehydration ICD Code: E86.0 Status: Acute (15) Secondary hyperparathyroidism (of renal origin) ICD Code: N25.81 Status: Chronic (16) Closed fracture of first metacarpal bone of left hand ICD Code: S62.202A Status: Acute (17) Hematemesis ICD Code: K92.0 Status: Acute (18) Learning disability ICD Code: F81.9 Status: Chronic Assessment and Plan UTI- catheter associated, Gates present on admission. Pseudomonas and Escherichia coli. -Due to multidrug-resistant organism infectious disease consulted. -s/p 7 days of cefepime -UA 03/07 ordered by infectious disease still appears dirty and cultures with pseudomonas aeruginosa however less than 10 K and Analisa. This may be contamination as she has no fever, or elevated white blood cell count. - Repeat UA 03/12 unremarkable -Gates replaced by Dr. Blanca on 03/07, and will follow up outpatient with him. -Home health care will be needed for continuation of gates care Hematemesis 1 during this hospitalization - Hemoccult and gastro-cult were positive however hemoglobin has been stable. Patient has refused EGD twice. -Continue Protonix. -Monitor hemoglobin periodically. -HGB 9.8, will continue to monitor. Generalized weakness/deconditioned. -Per PT notes she is able to transfer from sit to stand with minimal to standby assist and go from standing to sitting with contact guard and ambulates about 20 feet. Continue PT daily. Patient at times is noncompliant and has been counseled. Unable to have PT at home, patient states she will work with PT in order to go home. Acute on chronic renal failure due to acute urinary retention (previous admission) - creatinine has again increased today I suspect secondary to diminished by mouth intake versus the low BP overnight and this morning. Patient encouraged him to increase by mouth fluids. This is improving. Will HLIV. Repeat BMP in the morning. - bladder outlet obstruction - versus neurogenic bladder. - Ureteropelvicaliectasis bilaterally -Per urologist keep Gates in and patient to follow-up as outpatient. gates replaced by Dr. Blanca on 03/07. Right arm nonocclusive DVT in the distal right brachial vein diagnosed February 19 - patient previously refused Coumadin now appears to be taking it. - Pharmacy consulted - INR is now therapeutic. -Will need 3 months of anticoagulation for the catheter associated DVT, until the end of April 2017. -May consider Eliquis so patient does not have to check INR outpatient, however with her marginal renal function will likely defer this to PCP. Mildly comminuted and slightly displaced fracture through the Left proximal metadiaphysis of the first metacarpal - Ortho consult - Dr. Kuo recommends nonoperative management with thumb spica splint - repeat hand xray today Hypertension-BP low, held lisinopril and amlodipine. DM type 2 - however has hypoglycemia - persistent throughout hospitalization - hemoglobin A1c is only 5. She likely no longer has high insulin requirements due to the decreased renal function. -on low dose SSI. High sugar snacks as needed. Secondary hyperparathyroidism hypocalcemia - cont cacitriol. Mild hyperkalemia. Potassium 5.9on 03/13 - given another dose of Kayexalate and IV Lasix. - Repeat K 4.9 today -check BMP in a.m. Constipation. No bowel movement reported in 5 days. Treated with Kayexalate. Noncompliant -Psych consulted since patient behavior is interfering with her care at times. -Possible dx of personality disorder/ dysthymia. -Continue her Seroquel 25 mg by mouth twice a day per psychiatry Learning disability, patient has had a learning disability since 2nd grade -Cont to educate patient with simple to understand terms -As of now patient refuses SNF, she wants to go home. DVT prophylaxis On Coumadin which is therapeutic. Written by Mar Gutierrez, acting as scribe for Dr. Werner on 03/14/17 at 16: 25. This note was transcribed by scribe. I, Dr. Vee Werner personally performed the history, physical exam, and medical decision making; and confirmed the accuracy of the information in the transcribed note. Authenticated by Dr. Vee Werner on 03/14/17 at 19:16. Mar Gutierrez PA-C Mar 14, 2017 18:06 Vee Werner MD Mar 14, 2017 19:16
[2017-03-14 20:00] VITALS: BP 159/84; PULSE 100; PULSE 99; RESP 20; TEMP 96.1; O2SAT 99
[2017-03-14] MEDS: MAGNESIUM OXIDE 400 MG TAB PO SCH (20:50)
[2017-03-15] VITALS: BP 141/82; PULSE 99; RESP 20; TEMP 95.6; O2SAT 99
[2017-03-15 04:00] VITALS: BP 164/85; PULSE 109; RESP 20; TEMP 98.2; O2SAT 97
[2017-03-15 05:58] LABS: INTERNATIONAL NORMALIZED RATIO 2.9 RATIO; PROTHROMBIN TIME - PATIENT 33.7 SEC (9.8-11.6)
[2017-03-15 06:07] LABS: BICARBONATE 18.6 MEQ/L (21.0-32.0); MAGNESIUM 1.3 MG/DL (1.5-2.5); POTASSIUM 4.5 MEQ/L (3.5-5.1)
[2017-03-15 06:12] LABS: AUTOMATED NEUTROPHIL # 3.9 TH/MM3 (1.8-7.7); BASOPHIL # 0.1 TH/MM3 (0-0.2); BASOPHIL % 1.1 % (0.0-2.0); EOSINOPHIL # 0.2 TH/MM3 (0-0.4); EOSINOPHIL % 4.1 % (0.0-4.0); HEMATOCRIT 31.3 % (35.0-46.0); HEMO FLAGS DIFF FINAL; LYMPH % 24.6 % (9.0-44.0); LYMPHOCYTE # 1.5 TH/MM3 (1.0-4.8); MEAN CELL VOLUME 83.8 FL (80.0-100.0); MEAN CORPUSCULAR HEMOGLOBIN 27.5 PG (27.0-34.0); MEAN CORPUSCULAR HGB CONC 32.8 % (32.0-36.0); MONO % 5.1 % (0.0-8.0); NEUT % 65.1 % (16.0-70.0); PLATELET COUNT 169 TH/MM3 (150-450); RED BLOOD COUNT 3.73 MIL/MM3 (4.00-5.30); RED CELL DISTRIBUTION WIDTH 15.6 % (11.6-17.2)
[2017-03-15] MEDS: INSULIN ASPART SUPPLEMENTAL SCALE SQ SCH ×4 (06:41→21:00)
[2017-03-15 08:00] VITALS: BP 139/79; PULSE 95; RESP 17; TEMP 96.8; O2SAT 97
[2017-03-15] MEDS: SODIUM CHLORIDE 0.9% FLUSH 10 ML FLUSH IV FLUSH SCH ×2 (08:08→21:00)
[2017-03-15] MEDS: PANTOPRAZOLE SODIUM 40 MG VIAL IV PUSH SCH ×2 (08:11→23:26)
[2017-03-15] MEDS: CALCITRIOL 0.25 MCG CAP PO SCH (08:11)
[2017-03-15] MEDS: GABAPENTIN 100 MG CAP PO SCH ×2 (08:11→23:26)
[2017-03-15] MEDS: QUEtiapine FUMARATE 25 MG TAB PO SCH ×2 (08:11→16:14)
[2017-03-15] MEDS: MAGNESIUM OXIDE 400 MG TAB PO SCH ×2 (08:11→23:26)
--- NOTE | 2017-03-15 08:17 | RADRPT ---
EXAM DATE/TIME: 03/15/2017 06:50 [place] COMPARISON: HAND LEFT COMPLETE ([id number]), February 16, 2017, 17:06. INDICATIONS : Left hand pain. MEDICAL HISTORY : Gastroesophageal reflux disease. Renal calculi. Gastroparesis. Deep vein thrombosis. Vision loss. Neuropathy. Head trauma. Syncope. Migraines. Hypertension. Asthma. Pneumonia. Arthritis. Osteoporosi s. Gout. Diabetes. Depression. Anxiety. Thyroid disease. Anemia. MRSA. SURGICAL HISTORY : Tonsillectomy. Right foot surgery. Lithotripsy. Nephrectomy. ENCOUNTER: Subsequent ACUITY: 2 days PAIN SCORE: 5/10 LOCATION: Left hand, MCPJ's FINDINGS: The acute comminuted fracture involving the proximal portion of the left first metacarpal is again no joseph. a cast has been applied to the left wrist and thumb. There is persistent displacement of the f racture fragments status post casting. CONCLUSION: 1. Status post casting of acute comminuted displaced fracture involving the left first metacarpal pr oximally. Rigo Iqbal MD on March 15, 2017 at 7:26 Board Certified Radiologist. This report was verified electronically.
[2017-03-15] MEDS ORDERED: NYST15T TOPICAL (11:21)
[2017-03-15] MEDS ORDERED: COUM5TAB PO (11:21)
--- NOTE | 2017-03-15 11:36 | HHI.PR ---
Subjective Remarks Follow up for SHELLEY, hyperkalemia and generalized weakness. Patient doses complain of her but burning while in bed, patient found to have a yeast rash in her juliet area. Discussed low magnesium lab values with patient. She states she is trying to eat and drink well, but feels her diet is limited. Denies any nausea or vomiting. She states she feels ok to go go home and is not afraid of falling as much as she did before. She has been working with physical therapy. She has no other medical complaints at this time. Planning for discharge on as patient has an appointment with her PCP, patient is agreeable to this plan. Objective Vitals Vital Signs Date Time Temp Pulse Resp B/P Pulse Ox O2 Delivery O2 Flow Rate FiO2 03/15/17 08:00 96.8 95 17 139/79 97 03/15/17 04:00 98.2 109 20 164/85 97 03/15/17 00:00 95.6 99 20 141/82 99 03/14/17 20:00 96.1 99 20 159/84 99 03/14/17 20:00 100 03/14/17 16:00 97.4 93 17 133/75 97 03/14/17 12:00 95.8 98 18 125/81 95 I/O 03/14/17 03/14/17 03/14/17 03/15/17 03/15/17 03/15/17 07:00 15:00 23:00 07:00 15:00 23:00 Intake Total 1204 ml 240 ml 240 ml 1349 ml Output Total 1050 ml 1000 ml 400 ml 850 ml Balance 154 ml -760 ml -160 ml 499 ml Intake Oral 440 ml 240 ml 240 ml 0 ml IV Total 764 ml 1349 ml Output Urine Total 1050 ml 1000 ml 400 ml 850 ml # Bowel Movements 0 0 Result Diagram: 03/15/17 0517 03/15/17 0517 Imaging Last Impressions Hand X-Ray 03/15/17 0600 Signed Impressions: Service Date/Time: Wednesday, March 15, 2017 06:50 - CONCLUSION: 1. Status post casting of acute comminuted displaced fracture involving the left first metacarpal proximally. Rigo Iqbal MD Upper Extremity Ultrasound 03/04/17 0000 Signed Impressions: Service Date/Time: Saturday, March 04, 2017 18:24 - CONCLUSION: Focal occlusive thrombus in the mid right brachial vein. Ethan Kay MD Objective Remarks GENERAL: Well-developed well-nourished Morbidly obese middle aged female in [place]. SKIN: Juliet area yeast rash HEENT: Normocephalic. Pupils equal and round. Mucous membranes pink and moist. CARDIOVASCULAR: Regular rate and rhythm. No murmur appreciated. RESPIRATORY: No accessory muscle use. Clear to auscultation. Breath sounds equal bilaterally. GASTROINTESTINAL: Abdomen soft, non-tender, nondistended. Bowel sounds x4. MUSCULOSKELETAL: Left wrist in a splint. No clubbing or cyanosis. No edema. NEUROLOGICAL: Awake and alert. No focal neurological deficits. Moves upper and lower extremities spontaneously. Normal speech. PSYCHIATRIC: Appropriate mood and affect; insight and judgment normal. Medications and IVs Current Medications Medications (Trade) Dose Ordered Sig/Jaylen Route Start Time Stop Time Status Last Admin (NS Flush) 2 ml UNSCH PRN IV FLUSH 02/27/17 22:15 (NS Flush) 2 ml BID IV FLUSH 02/28/17 09:00 03/13/17 22:54 (Narcan Inj) 0.4 mg UNSCH PRN IV 02/27/17 22:15 (Norvasc) 10 mg DAILY PO 02/28/17 11:00 Hold 03/09/17 09:05 (Rocaltrol) 0.5 mcg DAILY PO 02/28/17 11:00 03/15/17 08:11 (Prinivil) 10 mg BID PO 02/28/17 11:00 Hold 03/08/17 08:10 (Coumadin) 5 mg DAILY@16 PO 03/01/17 16:00 Hold 03/12/17 16:01 (Zofran Inj) 4 mg Q6HR PRN IV PUSH 03/02/17 05:00 03/08/17 08:10 (Protonix Inj) 40 mg Q12H IV PUSH 03/02/17 09:00 03/15/17 08:11 (D50w (Vial) Inj) 25 ml UNSCH PRN IV PUSH 03/02/17 09:30 03/11/17 11:50 (Glucagon Inj) 1 mg UNSCH PRN OTHER 03/02/17 09:30 ([place] 5-325 Mg) 1 tab Q6H PRN PO 03/03/17 09:45 03/11/17 23:44 (Neurontin) 100 mg BID PO 03/03/17 10:00 03/15/17 08:11 Quetiapine Fumarate 25 mg 25 mg BID@08,16 PO 03/05/17 16:00 03/15/17 08:11 (Coumadin Consult Pharmacy) 0 ml @ 0 mls/hr UNSCH OTHER 03/09/17 15:45 Magnesium Oxide 400 mg 400 mg Q12HR PO 03/14/17 21:00 03/15/17 08:11 (Magnesium Sulfate 1 Gm Premix) 100 ml @ 100 mls/hr Q1H IV 03/15/17 11:00 03/15/17 12:59 (Mycostatin Cream) 1 applic Q12HR TOPICAL 03/15/17 11:00 Urinary Catheter: Yes Assessment to: Continue Gates insert reason: Obstruction/Retention Vascular Central Line Catheter: No A/P Problem List: (1) Acute renal failure ICD Code: N17.9 Status: Acute (2) Generalized weakness ICD Code: R53.1 Status: Acute (3) Obstructive uropathy ICD Code: N13.9 Status: Acute (4) Diabetes mellitus ICD Code: E11.9 Status: Chronic (5) Borderline personality disorder ICD Code: F60.3 Status: Acute (6) Neurogenic bladder ICD Code: N31.9 Status: Acute (7) Hypertension ICD Code: I10 Status: Acute (8) Morbid obesity with BMI of 45.0-49.9, adult ICD Code: E66.01 Status: Acute (9) Urinary tract infection ICD Code: N39.0 Status: Acute (10) Anemia ICD Code: D64.9 Status: Acute (11) DVT (deep venous thrombosis) ICD Code: I82.409 Status: Acute (12) CKD stage 3 due to type 2 diabetes mellitus ICD Code: E11.22 Status: Acute (13) Physical deconditioning ICD Code: R53.81 Status: Acute (14) Dehydration ICD Code: E86.0 Status: Acute (15) Secondary hyperparathyroidism (of renal origin) ICD Code: N25.81 Status: Chronic (16) Closed fracture of first metacarpal bone of left hand ICD Code: S62.202A Status: Acute (17) Hematemesis ICD Code: K92.0 Status: Acute (18) Learning disability ICD Code: F81.9 Status: Chronic Assessment and Plan UTI- catheter associated, Gates present on admission. Pseudomonas and Escherichia coli. -Due to multidrug-resistant organism infectious disease consulted. -s/p 7 days of cefepime -UA 03/07 ordered by infectious disease still appears dirty and cultures with pseudomonas aeruginosa however less than 10 K and Analisa. This may be contamination as she has no fever, or elevated white blood cell count. - Repeat UA 03/12 unremarkable -Gates replaced by Dr. Blanca on 03/07, and will follow up outpatient with him. -Home health care will be needed for continuation of gates care Hematemesis 1 during this hospitalization - Hemoccult and gastro-cult were positive however hemoglobin has been stable. Patient has refused EGD twice. -Continue Protonix. -Monitor hemoglobin periodically. -HGB 10.3, will continue to monitor. Generalized weakness/deconditioned. -Per PT notes she is able to transfer from sit to stand with minimal to standby assist and go from standing to sitting with contact guard and ambulates about 20 feet. Continue PT daily. Patient has been working with PT Acute on chronic renal failure due to acute urinary retention (previous admission) - creatinine has again increased today I suspect secondary to diminished by mouth intake versus the low BP overnight and this morning. Patient encouraged him to increase by mouth fluids. This is improving. Will HLIV. Repeat BMP in the morning. - bladder outlet obstruction - versus neurogenic bladder. - Ureteropelvicaliectasis bilaterally -Per urologist keep Gates in and patient to follow-up as outpatient. gates replaced by Dr. Blanca on 03/07. Right arm nonocclusive DVT in the distal right brachial vein diagnosed February 19 - patient previously refused Coumadin now appears to be taking it. - Pharmacy consulted - INR is now therapeutic. -Will need 3 months of anticoagulation for the catheter associated DVT, until the end of April 2017. -May consider Eliquis so patient does not have to check INR outpatient, however with her marginal renal function will likely defer this to PCP. Mildly comminuted and slightly displaced fracture through the Left proximal metadiaphysis of the first metacarpal - Dr. Kuo recommends nonoperative management with thumb spica splint - Hand xray shows persistent displacement of fracture, Reconsult ortho for follow up recommendations Hypertension-BP low, Cont to hold lisinopril and amlodipine. DM type 2 - however has hypoglycemia - persistent throughout hospitalization - hemoglobin A1c is only 5. She likely no longer has high insulin requirements due to the decreased renal function. -on low dose SSI. High sugar snacks as needed. -Change diet to regular diet due to constant low sugars Secondary hyperparathyroidism hypocalcemia - cont cacitriol. Mild hyperkalemia. Potassium 5.9on 03/13 -Resolved - Repeat K 4.5 today -Labs in AM Hypomagnesium, likely due to poor nutrition -1gm IV mag given, 400mg po ordered BID -Labs in AM Juliet yeast rash -Nystatin cream BID for initial treatment may switch to powder if symptoms start to improve -Keep area clean and dry Constipation. No bowel movement reported in 5 days. Encouraged oral intake. Noncompliant -Psych consulted since patient behavior is interfering with her care at times. -Possible dx of personality disorder/ dysthymia. -Continue her Seroquel 25 mg by mouth twice a day per psychiatry Learning disability, patient has had a learning disability since 2nd grade -Cont to educate patient with simple to understand terms -As of now patient refuses SNF, she wants to go home, planning discharge tomorrow with [facility]. DVT prophylaxis On Coumadin which is therapeutic. Written by ROMI Zurita acting as scribe for Dr. Werner on 03/15/17 at 10: 28. Discharge Planning Tomorrow with [facility], patient has appointment with PCP at 2pm Attending Statement This note was transcribed by scribe. I, Dr. Vee Werner personally performed the history, physical exam, and medical decision making; and confirmed the accuracy of the information in the transcribed note. Authenticated by Dr. Vee Werner on 03/17/17 at 13:39. Maggie Simon Mar 15, 2017 11:36 Vee Werner MD Mar 17, 2017 13:39
[2017-03-15 12:00] VITALS: BP 149/65; PULSE 105; RESP 16; TEMP 96.1; O2SAT 98
[2017-03-15] MEDS: MAGNESIUM SULFATE 1 GM PREMIX 100 ML IV SCH ×2 (12:17→14:32)
[2017-03-15] MEDS: NYSTATIN 100,000 UNIT/GM CREAM 15 GM TOPICAL SCH ×2 (12:17→23:28)
[2017-03-15 16:00] VITALS: BP 151/87; PULSE 97; RESP 18; TEMP 96.6; O2SAT 97
[2017-03-15 20:00] VITALS: BP 119/84; PULSE 100; RESP 20; TEMP 97.8; O2SAT 99
[2017-03-16] VITALS: BP_SYST 80; PULSE 92; RESP 20; TEMP 98; O2SAT 97
[2017-03-16 04:00] VITALS: BP 118/80; PULSE 88; RESP 18; TEMP 97.8; O2SAT 97
[2017-03-16 05:50] LABS: BICARBONATE 19.7 MEQ/L (21.0-32.0); INTERNATIONAL NORMALIZED RATIO 2.5 RATIO; MAGNESIUM 1.8 MG/DL (1.5-2.5); POTASSIUM 4.1 MEQ/L (3.5-5.1); PROTHROMBIN TIME - PATIENT 28.7 SEC (9.8-11.6)
[2017-03-16 06:01] LABS: AUTOMATED NEUTROPHIL # 3.9 TH/MM3 (1.8-7.7); BASOPHIL # 0.1 TH/MM3 (0-0.2); BASOPHIL % 0.9 % (0.0-2.0); EOSINOPHIL # 0.3 TH/MM3 (0-0.4); EOSINOPHIL % 4.7 % (0.0-4.0); HEMO FLAGS DIFF FINAL; LYMPH % 26.5 % (9.0-44.0); LYMPHOCYTE # 1.6 TH/MM3 (1.0-4.8); MEAN CELL VOLUME 83.4 FL (80.0-100.0); MEAN CORPUSCULAR HEMOGLOBIN 26.5 PG (27.0-34.0); MEAN CORPUSCULAR HGB CONC 31.8 % (32.0-36.0); MONO % 5.6 % (0.0-8.0); NEUT % 62.3 % (16.0-70.0); PLATELET COUNT 150 TH/MM3 (150-450); RED BLOOD COUNT 3.83 MIL/MM3 (4.00-5.30); RED CELL DISTRIBUTION WIDTH 15.6 % (11.6-17.2); WHITE BLOOD COUNT 6.2 TH/MM3 (4.0-11.0)
[2017-03-16] MEDS: INSULIN ASPART SUPPLEMENTAL SCALE SQ SCH ×2 (06:12→11:00)
[2017-03-16 08:00] VITALS: BP 142/77; PULSE 99; RESP 20; TEMP 97.6; O2SAT 100
[2017-03-16] MEDS: CALCITRIOL 0.25 MCG CAP PO SCH (08:36)
[2017-03-16] MEDS: PANTOPRAZOLE SODIUM 40 MG VIAL IV PUSH SCH (08:36)
[2017-03-16] MEDS: GABAPENTIN 100 MG CAP PO SCH (08:36)
[2017-03-16] MEDS: MAGNESIUM OXIDE 400 MG TAB PO SCH (08:36)
[2017-03-16] MEDS: QUEtiapine FUMARATE 25 MG TAB PO SCH (08:36)
[2017-03-16] MEDS: SODIUM CHLORIDE 0.9% FLUSH 10 ML FLUSH IV FLUSH SCH (08:37)
[2017-03-16] MEDS: NYSTATIN 100,000 UNIT/GM CREAM 15 GM TOPICAL SCH (08:40)
[2017-03-16] MEDS: ACETAMINOPHEN/HYDROcodone 325 MG/5 MG TAB PO PRN (08:52)
[2017-03-16] MEDS ORDERED: QUET1TAB7 PO (10:01)
[2017-03-16] MEDS ORDERED: OMEP40CA2 PO (10:01)
--- NOTE | 2017-03-16 10:09 | PD.ORT.PN ---
Subjective Subjective Remarks Patient sitting upright in bed, answering questions appropiately. Admits splint has been intact since it was placed. Approximately 4 weeks since initial left first metacarpal fracture. Objective Vitals Vital Signs Date Time Temp Pulse Resp B/P Pulse Ox O2 Delivery O2 Flow Rate FiO2 03/16/17 08:00 97.6 99 20 142/77 100 03/16/17 04:00 97.8 88 18 118/80 97 03/16/17 00:00 98.0 92 20 80/ 97 03/15/17 20:00 97.8 100 20 119/84 99 03/15/17 16:00 96.6 97 18 151/87 97 03/15/17 12:00 96.1 105 16 149/65 98 I/O 03/15/17 03/15/17 03/15/17 03/16/17 03/16/17 03/16/17 07:00 15:00 23:00 07:00 15:00 23:00 Intake Total 1349 ml 340 ml 360 ml 640 ml 120 ml Output Total 850 ml 700 ml 850 ml 900 ml Balance 499 ml -360 ml -490 ml -260 ml 120 ml Intake Oral 0 ml 340 ml 360 ml 640 ml 120 ml IV Total 1349 ml Output Urine Total 850 ml 700 ml 850 ml 900 ml # Bowel Movements 0 0 1 Result Diagram: 03/16/17 0504 03/16/17 0504 Other Results Laboratory Tests Test 03/16/17 05:04 Prothrombin Time 28.7 SEC (9.8-11.6) Prothromb Time International 2.5 RATIO Ratio Imaging Last Impressions Hand X-Ray 03/15/17 0600 Signed Impressions: Service Date/Time: Wednesday, March 15, 2017 06:50 - CONCLUSION: 1. Status post casting of acute comminuted displaced fracture involving the left first metacarpal proximally. Rigo Iqbal MD Upper Extremity Ultrasound 03/04/17 0000 Signed Impressions: Service Date/Time: Saturday, March 04, 2017 18:24 - CONCLUSION: Focal occlusive thrombus in the mid right brachial vein. Ethan Kay MD Objective Remarks LUE: Splint, Dressing dry and intact. Minimal tenderness over first metacarpal. Freely able to move distal digits. Good cap refill. 2+ pulses. Neurovascular intact. Assessment & Plan Problem List: (1) Closed fracture of first metacarpal bone of left hand Assessment and Plan Ortho status stable 4 weeks since initial fracture of first metacarpal on left hand. X-rays reviewed with myself and Dr Kuo. Fracture is well aligned and healing, callous formation noted. Ok to take out of splint. Wrist guard brace will be ordered. Ok to take out of wrist brace and start gentle ROM exercises of wrist and digits. Estimate 2 weeks of brace wear with a re-xray at that time. Thank you for the reconsult on this patient. Sultana Clarke Mar 16, 2017 10:09
--- NOTE | 2017-03-16 10:13 | HHI.DS ---
Discharge Summary Admission Date Mar 02, 2017 at 05:39 Discharge Date: Mar 16, 2017 Admitting Diagnosis generalized weakness, inability to care for self (1) Acute renal failure ICD Code: N17.9 (2) Generalized weakness ICD Code: R53.1 (3) Obstructive uropathy ICD Code: N13.9 (4) Diabetes mellitus ICD Code: E11.9 (5) Borderline personality disorder ICD Code: F60.3 (6) Neurogenic bladder ICD Code: N31.9 (7) Hypertension ICD Code: I10 (8) Morbid obesity with BMI of 45.0-49.9, adult ICD Code: E66.01 (9) Urinary tract infection ICD Code: N39.0 (10) Anemia ICD Code: D64.9 (11) DVT (deep venous thrombosis) ICD Code: I82.409 (12) CKD stage 3 due to type 2 diabetes mellitus ICD Code: E11.22 (13) Physical deconditioning ICD Code: R53.81 (14) Dehydration ICD Code: E86.0 (15) Secondary hyperparathyroidism (of renal origin) ICD Code: N25.81 (16) Closed fracture of first metacarpal bone of left hand ICD Code: S62.202A (17) Hematemesis ICD Code: K92.0 (18) Learning disability ICD Code: F81.9 Procedures Gates change Brief History - From Admission Years old morbidly obese female who was very recently discharged from the hospital after being treated for syncopal episode, SHELLEY, anemia of acute blood loss, bladder outlet obstruction and right arm nonocclusive DVT on Coumadin as well as mildly commuted displaced fracture of the left proximal metacarpal. Patient was discharged with home health care however she complained that home health care do to make it to her place and she was unable to even move her legs so patient cold defect and came back to hospital. She was admitted for placement under observation. I saw the patient she denied any complain except her chronic generalized weakness and that she cannot manage on her own, I had a lengthy discussion with the nurses and transplant case manager and the head of his management in the hospital, patient is not qualified for rehabilitation, PT has been consulted to assess her and they did recommend verbally need for rehabilitation. Eventually the head of case management advice to get a consult from [facility] to assess if they can offer any help for the patient CBC/BMP: 03/16/17 0504 03/16/17 0504 Significant Findings Laboratory Tests Test 03/14/17 03/15/17 03/16/17 05:41 05:17 05:04 Red Blood Count 3.56 MIL/MM3 3.73 MIL/MM3 3.83 MIL/MM3 (4.00-5.30) (4.00-5.30) (4.00-5.30) Hemoglobin 9.8 GM/DL 10.3 GM/DL 10.2 GM/DL (11.6-15.3) (11.6-15.3) (11.6-15.3) Hematocrit 30.3 % 31.3 % 32.0 % (35.0-46.0) (35.0-46.0) (35.0-46.0) Platelet Count 146 TH/MM3 (150-450) Prothrombin Time 42.5 SEC 33.7 SEC 28.7 SEC (9.8-11.6) (9.8-11.6) (9.8-11.6) Chloride Level 111 MEQ/L 111 MEQ/L 108 MEQ/L (98-107) (98-107) (98-107) Carbon Dioxide Level 18.9 MEQ/L 18.6 MEQ/L 19.7 MEQ/L (21.0-32.0) (21.0-32.0) (21.0-32.0) Blood Urea Nitrogen 35 MG/DL (7-18) 31 MG/DL (7-18) 30 MG/DL (7-18) Creatinine 1.74 MG/DL 1.48 MG/DL 1.63 MG/DL (0.50-1.00) (0.50-1.00) (0.50-1.00) Estimat Glomerular Filtration 31 ML/MIN (>89) 37 ML/MIN (>89) 33 ML/MIN (>89) Rate Magnesium Level 1.4 MG/DL 1.3 MG/DL (1.5-2.5) (1.5-2.5) Eosinophils (%) (Auto) 4.1 % (0.0-4.0) 4.7 % (0.0-4.0) Mean Corpuscular Hemoglobin 26.5 PG (27.0-34.0) Mean Corpuscular Hemoglobin 31.8 % Concent (32.0-36.0) Mean Platelet Volume 11.4 FL (7.0-11.0) Imaging Last Impressions Hand X-Ray 03/15/17 0600 Signed Impressions: Service Date/Time: Wednesday, March 15, 2017 06:50 - CONCLUSION: 1. Status post casting of acute comminuted displaced fracture involving the left first metacarpal proximally. Rigo Iqbal MD Upper Extremity Ultrasound 03/04/17 0000 Signed Impressions: Service Date/Time: Saturday, March 04, 2017 18:24 - CONCLUSION: Focal occlusive thrombus in the mid right brachial vein. Ethan Kay MD PE at Discharge GENERAL: Well-developed well-nourished Morbidly obese middle aged female in [facility]. HEENT: Normocephalic. Pupils equal and round. Mucous membranes pink and moist. CARDIOVASCULAR: Regular rate and rhythm. No murmur appreciated. RESPIRATORY: No accessory muscle use. Clear to auscultation. Breath sounds equal bilaterally. GASTROINTESTINAL: Abdomen soft, non-tender, nondistended. Bowel sounds x4. MUSCULOSKELETAL: Left wrist in a splint. No clubbing or cyanosis. No edema. NEUROLOGICAL: Awake and alert. No focal neurological deficits. Moves upper and lower extremities spontaneously. Normal speech. PSYCHIATRIC: Appropriate mood and affect; insight and judgment normal. Hospital Course UTI- catheter associated, Gates present on admission. Pseudomonas and Escherichia coli. -s/p 7 days of cefepime -UA 03/07 ordered by infectious disease still appears dirty and cultures with pseudomonas aeruginosa however less than 10 K. Likely contamination as she has had no fever, or elevated white blood cell count. - Repeat UA 03/12 unremarkable -Gates replaced by Dr. Blanca on 03/07, and we have arranged the followup appointment for the patient -Home health care arranged Hematemesis 1 during this hospitalization - Hemoccult and gastro-cult were positive however hemoglobin has been stable. Patient has refused EGD twice. -Continue Protonix. Generalized weakness/deconditioned. -Per PT notes she is able to transfer from sit to stand with minimal to standby assist and go from standing to sitting with contact guard and ambulates about 20 feet. Continue PT daily. Patient has been poorly motivated with PT, she cited fear of falling, however gait has improved as well as her confidence. Patient counseled that she needs to increase activity at home or may become weak. Acute on chronic renal failure due to acute urinary retention (previous admission) - - bladder outlet obstruction - versus neurogenic bladder. Patient had an episode of hypotension which resulted in SHELLEY, this has resolved with Cr now around 1.6 and stable for several days. I recommend NOT giving this patient any blood pressure medications as blood pressure has been stable after DC'ing home BP meds, and patient previously had syncopal event with hypotension during last hospital admission. - Ureteropelvicaliectasis bilaterally -Per urologist Dr. Blanca keep Gates in and patient to follow-up as outpatient. gates replaced on 03/07. Right arm nonocclusive DVT in the distal right brachial vein diagnosed February 19 - patient previously refused Coumadin now appears to be taking it. - Pharmacy consulted - INR is now therapeutic. -Will need 3 months of anticoagulation for the catheter associated DVT, until the end of April 2017. -May consider Eliquis so patient does not have to check INR outpatient, however with her marginal renal function will defer this to PCP. Mildly comminuted and slightly displaced fracture through the Left proximal metadiaphysis of the first metacarpal - Dr. Kuo recommends nonoperative management with thumb spica splint - Hand xray obtained shows persistent displacement of fracture, ortho was reconsulted for follow up recommendations, however they did not see the patient. The patient is instructed to call Dr. Kuo office for followup apointment. Hypotension-BP stable after DCing norvasc and lisinopril. DM type 2 - however has hypoglycemia - persistent throughout hospitalization - hemoglobin A1c is only 5. She likely no longer has high insulin requirements due to the decreased renal function. She has had persistent borderline hypoglycemia which has improved after changing to regular diet. I recommend continuing regular diet to avoid hypoglycemic events. Secondary hyperparathyroidism hypocalcemia - cont cacitriol. Mild hyperkalemia. Potassium 5.9on 03/13 -Resolved s/p kayexylate. Hypomagnesium, likely due to poor nutrition -resolved. Perineal candidiasis -continue Nystatin cream BID Constipation. No bowel movement reported in 5 days. Encouraged oral intake. Noncompliant -Psych consulted since patient behavior is interfering with her care at times. -Possible dx of personality disorder/ dysthymia. -She was started on Seroquel 25 mg by mouth twice a day. The patient states that it makes her drowsy. We discussed taking it only at night. With sleep and she is agreeable. Learning disability, patient has had a learning disability since 2nd grade. Patient actually has relatively high mental functioning and shows good understanding of her follow-up plans. Patient will be discharged home with her mother today who is picking her up at 11:30. She has a follow-up appointment to establish with a primary care physician today at 1 PM. Home health care has been arranged. Pt Condition on Discharge: Stable Discharge Disposition: Disch w/ Home Health Serv Discharge Time: > 30 minutes Discharge Instructions DIET: Follow Instructions for: As Tolerated, No Restrictions Activities you can perform: Regular-No Restrictions Follow up Referrals: Orthopedics - 1 Week with Christoph Kuo MD PCP Follow-up - 03/16/17 @ [facility] Physical Therapy Urology - 03/29/17 with Geovani Blanca DO New Medications: Omeprazole (Omeprazole) 40 Mg Cap 40 MG PO DAILY gastritis #30 Ref 0 CAP Nystatin Topical (Nystatin Topical) 100,000 unit/gm Cream 1 APPLIC TOPICAL Q12HR Rash #1 TUBE Quetiapine (Quetiapine) 25 Mg Tab 25 MG PO HS depression #60 TAB Changed Medications: Gabapentin (Neurontin) 100 Mg Cap 100 MG PO BID neuropathy #60 Ref 0 CAP (Changed from: MG) Continued Medications: Calcitriol (Rocaltrol) 0.25 Mcg Cap 0.5 MCG PO DAILY Electrolyte Replacement #60 CAP (This prescription has been renewed) Warfarin (Coumadin) 5 Mg Tab 5 MG PO DAILY@16 dvt #30 TAB (This prescription has been renewed) Discontinued Medications: Amlodipine (Norvasc) 10 Mg Tab 10 MG PO DAILY htn #30 TAB Ciprofloxacin (Cipro) 500 Mg Tab 500 MG PO Q12HR #10 TAB Hydrocodone-Acetaminophen (Flat Top) 5-325 mg Tab 1 TAB PO Q6H PRN PAIN #20 Ref 0 TAB Lisinopril (Lisinopril) 2.5 Mg Tab 2.5 MG PO DAILY #30 Ref 0 TAB Lisinopril (Lisinopril) 5 Mg Tab 10 MG PO BID htn #60 TAB Loperamide (Loperamide) 2 Mg Cap 2 MG PO DIRECTED One capsule after each loose stool. Not to exceed 8 capsules per day. PRN DIARRHEA Ref 0 CAP Vee Werner MD Mar 16, 2017 10:13
[2017-03-16] MEDS ORDERED: WARFARIN SOD 4 MG TAB PO SCH (16:00)
[2017-03-30] MEDS ORDERED: LISI2.5T3 PO (14:02)
[2017-03-30] MEDS ORDERED: NEUR100C PO (15:30)
[2017-04-05] MEDS ORDERED: BACT400T PO (10:54)
[2017-04-05] MEDS ORDERED: BETH25TA2 PO (10:54)
[2017-04-21] MEDS ORDERED: COUM5TAB PO (16:59)
== END 2017-03-16 11:52 | disposition home health service (06) | DRG 683 ==
LOC: NEPA 20:05 → NEDA 22:10 → NEPGCP 02-28 00:30 → OBSVTOIN 03-02 05:39 → N07A 03-02 21:12
PROVIDERS: ADMIT Family Medicine; ATTEND Family Medicine
PROC: 0T2BX0Z Change Drainage Device in Bladder, External Approach (ICD-10-PCS; principal; 2017-03-07)
DX: N17.9 Acute kidney failure, unspecified (principal); Z68.43 Body mass index [BMI] 50.0-59.9, adult; K92.0 Hematemesis; E11.22 Type 2 diabetes mellitus with diabetic chronic kidney disease; I82.621 Acute embolism and thrombosis of deep veins of right upper extremity; N39.0 Urinary tract infection, site not specified; T83.511A Infection and inflammatory reaction due to indwelling urethral catheter, initial encounter; E11.43 Type 2 diabetes mellitus with diabetic autonomic (poly)neuropathy; B37.49 Other urogenital candidiasis; N13.9 Obstructive and reflux uropathy, unspecified; I12.9 Hypertensive chronic kidney disease with stage 1 through stage 4 chronic kidney disease, or unspecified chronic kidney disease; R53.1 Weakness; F60.3 Borderline personality disorder; N31.9 Neuromuscular dysfunction of bladder, unspecified; N18.3 Chronic kidney disease, stage 3 (moderate); E66.01 Morbid (severe) obesity due to excess calories; D64.9 Anemia, unspecified; E86.0 Dehydration; N25.81 Secondary hyperparathyroidism of renal origin; F81.9 Developmental disorder of scholastic skills, unspecified; S62.212D Bennett's fracture, left hand, subsequent encounter for fracture with routine healing; Z79.01 Long term (current) use of anticoagulants; Y84.6 Urinary catheterization as the cause of abnormal reaction of the patient, or of later complication, without mention of misadventure at the time of the procedure; B96.5 Pseudomonas (aeruginosa) (mallei) (pseudomallei) as the cause of diseases classified elsewhere; B96.20 Unspecified Escherichia coli [E. coli] as the cause of diseases classified elsewhere; Z16.24 Resistance to multiple antibiotics; F34.1 Dysthymic disorder; Z91.19 Patient's noncompliance with other medical treatment and regimen; E87.5 Hyperkalemia; E83.42 Hypomagnesemia; K59.00 Constipation, unspecified
CPT/HCPCS: 73130; 76937; 80048; 80053; 81001; 82270; 82272; 82728; 82948; 83036; 83605; 83735; 84132; 84702; 85014; 85018; 85025; 85027; 85610; 85730; 86850; 86900; 86901; 87077; 87086; 87186; 87493; 93971; C9113; G0378; G8987-GP; G8988-GP; J0692; J1940; J2060; J2405; J3475; J7030; L3908; P9612

== ENCOUNTER 2017-03-17 19:18 | Observation (INO) | payer MEDICAID ==
[~2017-03-17] VITALS: Ht 170.2 cm; Wt 155.0 kg
[~2017-03-17 19:18] MED LIST changes: -AMLO10 PO; -CIPR-9 PO; -LISI-519 PO; -LISI2.5T3 PO; +NEUR100C PO; -NORC5TAB PO; +NYST15T TOPICAL; +OMEP40CA2 PO; +QUET1TAB7 PO; -Z.0.WHEELELR
[2017-03-17 19:32] VITALS: BP 115/81; PULSE 98; RESP 20; TEMP 98; O2SAT 98
--- NOTE | 2017-03-17 21:01 | PD ---
HPI Chief Complaint: General Weakness Time Seen by Provider: 20:43 Travel History International Travel<30 days: No Contact w/Intl Traveler<30days: No Traveled to known affect area: No History of Present Illness HPI The patient is a 51-year-old female who presents emergency department via EMS for generalized weakness. The patient was just discharged from [facility] yesterday for generalized weakness and had home physical therapy and home health care arranged. The patient states she was on the couch earlier today, after her roommate place her in the couch, and she was then unable to get off of the couch. The patient states she continues to have bilateral leg weakness, states she only refused physical therapy twice. The patient states she did not want to come the hospital and is adamantly refusing any laboratory evaluation or IV. The patient states she does not want to go to a alf or another rehabilitation facility, she was to go home. The patient states she will need help and transportation getting home. PFSH Past Medical History Hx Anticoagulant Therapy: Yes (on Coumadin) Anemia: Yes (IRON DEFICIENCY) Arthritis: Yes Asthma: Yes Blood Disorders: No Anxiety: Yes Depression: Yes Heart Rhythm Problems: No Cancer: No Cardiovascular Problems: No High Cholesterol: No Chest Pain: No Congestive Heart Failure: No Developmental Delay: Yes Diabetes: Yes Patient Takes Glucophage: No Diminished Hearing: No Deep Vein Thrombosis: Yes (right brachial) Endocrine: Yes Gastrointestinal Disorders: Yes (gastroparesis) GERD: Yes Gout: Yes Genitourinary: Yes Headaches: Yes Heparin Induced Thrombocytopen: No Hypertension: Yes (LOW) Immune Disorder: No Kidney Stones: Yes Musculoskeletal: Yes Neurologic: Yes (NEUROPATHY) Psychiatric: Yes ("i have mental problems but I don't know what they are") Reproductive: No Respiratory: Yes (ASTHMA, HX PNEUMONIA) Immunizations Current: No Migraines: Yes Pneumonia: Yes Seizures: No Sickle Cell Disease: No Thyroid Disease: Yes (USE TO TAKE SYNTHROID) Tetanus Vaccination: Unknown Influenza Vaccination: No ?: Not Menopausal: Yes Past Surgical History AICD: No Arteriovenous Shunt: No Cholecystectomy: Yes Genitourinary Surgery: Yes (LITHOTRIPSY) Insulin Pump: No Joint Replacement: No Pacemaker: No Tonsillectomy: Yes Other Surgery: Yes (TONSILS) Social History Alcohol Use: No Tobacco Use: No Substance Use: No Allergies-Medications (Allergen,Severity, Reaction): Coded Allergies: Sinequan (Verified Allergy, Severe, HIVES, 03/17/17) Codeine (Verified Adverse Reaction, Severe, NAUSEA/VOMITING, 03/17/17) *MDRO Multi-Drug Resistant Organism (Unverified Adverse Reaction, Unknown , 03/17/17) MRSA (foot) - 06/29/11, 08/04/11 MRSA PCR Screen POSITIVE 02/17/17 Reported Meds & Prescriptions Reported Meds & Active Scripts Active Omeprazole 40 Mg Cap 40 Mg PO DAILY Quetiapine (Quetiapine Fumarate) 25 Mg Tab 25 Mg PO HS Nystatin Topical (Nystatin) 100,000 unit/gm Cream 1 Applic TOPICAL Q12HR Coumadin (Warfarin) 5 Mg Tab 5 Mg PO DAILY@16 Neurontin (Gabapentin) 100 Mg Cap 100 Mg PO BID Rocaltrol (Calcitriol) 0.25 Mcg Cap 0.5 Mcg PO DAILY Review of Systems Except as stated in HPI: all other systems reviewed are Neg Musculoskeletal: Positive: Weakness Neurologic: Positive: Weakness Physical Exam Narrative GENERAL: Awake, alert, 51-year-old female appears her stated age and is in no acute respiratory distress. SKIN: Focused skin assessment warm/dry. HEAD: Atraumatic. Normocephalic. EYES: Patient is wearing glasses, able to see fingers at a distance of 2 feet without difficulty. ENT: No nasal bleeding or discharge. Mucous membranes pink and moist. NECK: Trachea midline. No JVD. CARDIOVASCULAR: Regular rate and rhythm. No murmur appreciated. Heart rate in the 80s. RESPIRATORY: No accessory muscle use. Clear to auscultation. Breath sounds equal bilaterally. GASTROINTESTINAL: Abdomen soft, obese, no rebound tenderness. Goddard catheter in place. MUSCULOSKELETAL: No obvious deformities. No clubbing. No cyanosis. Mild bilateral lower extremity edema NEUROLOGICAL: Awake and alert. No obvious cranial nerve deficits. Motor grossly within normal limits. Normal speech. Nonfocal. Patient is oriented to person, place, month, year, and weight clerk. PSYCHIATRIC: Slightly odd affect. Data Data Last Documented VS Vital Signs Date Time Temp Pulse Resp B/P Pulse Ox O2 Delivery O2 Flow Rate FiO2 03/17/17 19:32 98.0 98 20 115/81 98 Room Air MDM Medical Decision Making Medical Screen Exam Complete: Yes Emergency Medical Condition: Yes Medical Record Reviewed: Yes Differential Diagnosis Differential diagnosis and includes inability care for self, generalized weakness, deconditioning, borderline personality disorder, UTI, hyponatremia. Narrative Course I reviewed the patient's medical course and Dr. Werner's discharge summary from March 16, the patient was evaluated by psychiatry, they thought her personality disorder was interfering with her care. The patient is alert and oriented 5 in the emergency department is refusing any laboratory evaluation or further evaluation. I had a discussion with the patient regarding her generalized weakness and deconditioning. There is no indication for admission, I had a discussion with the patient regarding case management to evaluate for placement in a alf/rehabilitation center versus discharge home. The patient states she would prefer to be discharged home, did not want to come to the emergency department in the first place. However, she states she'll need transportation that will help her into her home where her walker is located. Therefore, I discussed the patient with case management who will arrange transportation home. However, case management states that the patient lives with her mother and another roommate, who will not take the patient home. Therefore, the patient will be 23 hour observation for case management to arrange placement. I discussed the patient with the on-call [facility] hospitalist, Dr. Tracy. Diagnosis Primary Impression: Generalized weakness Additional Impression: Physical deconditioning Admitting Information Admitting Physician Requests: Observation Additional Instructions: Continue to follow-up with physical therapy. Use your walker as directed. Case management will arrange transportation home Condition: Stable Matthias Breen MD Mar 17, 2017 21:00
--- NOTE | 2017-03-17 21:37 | HHI.HP ---
[facility] Elisa Linares MD Admission Diagnosis generalized weakness, inability care for self, deconditioning Diagnoses: (1) Total self-care deficit Diagnosis: Principal (2) Physical deconditioning Diagnosis: Principal (3) Renal insufficiency Diagnosis: Principal (4) DVT (deep venous thrombosis) Diagnosis: Principal Travel History International Travel<30 Days: No Contact w/Intl Traveler <30 Da: No Traveled to Known Affected Are: No History of Present Illness This is a 51-year-old female with a PMH of Learning Disability, DVT on Coumadin , Physical Deconditioning, CKD Stage III, Neurogenic Bladder, Borderline Personality Disorder and Morbid Obesity who was brought to the ER by EMS for c/ o generalized weakness. Pt w/ recent hospitalization 03/02-03/16/17 w/ UTI w/ Goddard replacement, Acute RUE Non-occlusive DVT started on Coumadin, Acute on Chronic Renal Failure w/ Obstructive Uropathy and Physical Deconditioning s/p eval by PT w/ recommendations for [facility], d/c'd home on 03/16/17 to the care of Mother with whom she lives, however per report Mother called EMS as she's unable to take care of her. Pt does not want to be admitted, refusing IV or labs, pt was initially to be d/c'd home, however Mother will not come pick patient up. Case Management consulted and recommendation was for 23hr Observation admission as pt unable to care for self. Review of Systems Except as stated in HPI: all other systems reviewed are Neg ROS: 14 point review of systems otherwise negative. Past Family Social History Past Medical History PMH: Learning Disability, DVT on Coumadin, Physical Deconditioning, CKD Stage III, Neurogenic Bladder, Borderline Personality Disorder and Morbid Obesity Past Surgical History PAST SURGICAL HISTORY: Cholecystectomy, Tonsillectomy, Lithotripsy Allergies: Coded Allergies: Sinequan (Verified Allergy, Severe, HIVES, 03/17/17) Codeine (Verified Adverse Reaction, Severe, NAUSEA/VOMITING, 03/17/17) *MDRO Multi-Drug Resistant Organism (Unverified Adverse Reaction, Unknown , 03/17/17) MRSA (foot) - 06/29/11, 08/04/11 MRSA PCR Screen POSITIVE 02/17/17 Family History PAST FAMILY HISTORY: Reviewed. No h/o DM or CAD Social History PAST SOCIAL HISTORY: Negative for alcohol, tobacco or drugs. Physical Exam Vital Signs Vital Signs Date Time Temp Pulse Resp B/P Pulse Ox O2 Delivery O2 Flow Rate FiO2 03/17/17 19:32 98.0 98 20 115/81 98 Room Air Physical Exam PE: GENERAL: Middle-aged white female in no acute distress. Developmentally delayed. Agitated, talking to herself. HEENT: PERRLA, EOMI. No scleral icterus or conjunctival pallor. No lid lag or facial droop. CARDIOVASCULAR: Regular rate and rhythm. No obvious murmurs to auscultation. No chest tenderness to palpation. RESPIRATORY: No obvious rhonchi or wheezing. Clear to auscultation. Breath sounds equal bilaterally. GASTROINTESTINAL: Abdomen soft, non-tender, nondistended. BS normal. Goddard in place. MUSCULOSKELETAL: Extremities without clubbing, cyanosis, or edema. No obvious deformities. NEUROLOGICAL: Awake, alert and oriented x4. No focal neurologic deficits. Moving both upper and lower extremities spontaneously. Assessment and Plan Problem List: (1) Total self-care deficit ICD Code: R41.89 Status: Acute (2) Physical deconditioning ICD Code: R53.81 Status: Acute (3) Renal insufficiency ICD Code: N28.9 Status: Acute (4) DVT (deep venous thrombosis) ICD Code: I82.409 Status: Acute Assessment and Plan A/P: 1. Total Self-Care Deficit: pt lives at home w/ Mother and roommate, Mother unwilling to pick patient up, pt unable to care for self. Case Management consulted in ER, recommended 23hr Observation admission for placement. 2. Physical Deconditioning: w/ generalized weakness, ambulates w/ walker however needs assistance w/ transfer. +Morbidly Obese. PT for eval/tx for recommendations. 3. Renal Insufficiency: Acute on Chronic. Creatinine 1.63 on 03/16/17, previously 1.48 on 03/15/17. Pt refusing IV and labs at this time. Will check labs in am. Goddard in place from previous admission, plan for outpatient follow up w/ Dr. Blanca 4. DVT: On Coumadin, Acute UE DVT on previous admit, started on Coumadin. Unable to check labs as pt refusing, will check PT/INR in am. 5. Social work for d/c planning as needed. 6. Case discussed at length w/ ER physician. Deloris Tracy MD Mar 17, 2017 21:37
[2017-03-17] MEDS ORDERED: SODIUM CHLORIDE 0.9% FLUSH 10 ML FLUSH IV FLUSH PRN (21:45)
[2017-03-17] MEDS ORDERED: BISACODYL 10 MG SUPP RECTAL PRN (21:45)
[2017-03-17] MEDS ORDERED: ONDANSETRON HCL 4 MG/2 ML VIAL IVP PRN (21:45)
[2017-03-18] VITALS: BP 106/67; PULSE 100; RESP 20; TEMP 98.8; O2SAT 100
[2017-03-18 08:00] VITALS: BP 121/68; PULSE 84; RESP 20; TEMP 98.2; O2SAT 100
[2017-03-18] MEDS ORDERED: PANTOPRAZOLE SOD 40 MG DELAYED RELEASE TAB PO SCH (09:00)
[2017-03-18] MEDS ORDERED: NYSTATIN 100,000 UNIT/GM CREAM 15 GM TOPICAL SCH (09:00)
[2017-03-18] MEDS ORDERED: GABAPENTIN 100 MG CAP PO SCH (09:00)
[2017-03-18] MEDS ORDERED: CALCITRIOL 0.25 MCG CAP PO SCH (09:00)
[2017-03-18] MEDS ORDERED: SODIUM CHLORIDE 0.9% FLUSH 10 ML FLUSH IV FLUSH SCH (09:00)
[2017-03-18 12:00] VITALS: BP 125/67; PULSE 98; RESP 18; TEMP 97.1; O2SAT 100
--- NOTE | 2017-03-18 13:55 | HHI.DS ---
Discharge Summary Admission Date Mar 17, 2017 at 21:16 Discharge Date: Mar 18, 2017 Admitting Diagnosis generalized weakness, inability care for self, deconditioning (1) Total self-care deficit ICD Code: R41.89 Diagnosis: Principal (2) Physical deconditioning ICD Code: R53.81 Diagnosis: Principal (3) Renal insufficiency ICD Code: N28.9 Diagnosis: Secondary (4) DVT (deep venous thrombosis) ICD Code: I82.409 Diagnosis: Secondary Procedures none Brief History - From Admission This is a 51-year-old female with a PMH of Learning Disability, DVT on Coumadin , Physical Deconditioning, CKD Stage III, Neurogenic Bladder, Borderline Personality Disorder and Morbid Obesity who was brought to the ER by EMS for c/ o generalized weakness. Pt w/ recent hospitalization 03/02-03/16/17 w/ UTI w/ Goddard replacement, Acute RUE Non-occlusive DVT started on Coumadin, Acute on Chronic Renal Failure w/ Obstructive Uropathy and Physical Deconditioning s/p eval by PT w/ recommendations for [facility], d/c'd home on 03/16/17 to the care of Mother with whom she lives, however per report Mother called EMS as she's unable to take care of her. Pt does not want to be admitted, refusing IV or labs, pt was initially to be d/c'd home, however Mother will not come pick patient up. Case Management consulted and recommendation was for 23hr Observation admission as pt unable to care for self. PE at Discharge GENERAL: Middle-aged white female in no acute distress. Developmentally delayed. Pleasant. HEENT: PERRLA, EOMI. No scleral icterus or conjunctival pallor. No lid lag or facial droop. CARDIOVASCULAR: Regular rate and rhythm. No obvious murmurs to auscultation. No chest tenderness to palpation. RESPIRATORY: No obvious rhonchi or wheezing. Clear to auscultation. Breath sounds equal bilaterally. GASTROINTESTINAL: Abdomen soft, non-tender, nondistended. BS normal. Goddard in place. MUSCULOSKELETAL: Extremities without clubbing, cyanosis, or edema. No obvious deformities. NEUROLOGICAL: Awake, alert and oriented x4. No focal neurologic deficits. Moving both upper and lower extremities spontaneously. Pt update on day of discharge Feels much better. She is eating. No n/v/d/c. Denies chest pain or sob. Says her brother will take her home. CM did spoke with her brother and patient will go home Hospital Course 1. Total Self-Care Deficit: pt lives at home w/ Mother and roommate, Mother unwilling to pick patient up, pt unable to care for self. Case Management consulted in ER, recommended 23hr Observation admission for placement. 2. Physical Deconditioning: w/ generalized weakness, ambulates w/ walker however needs assistance w/ transfer. +Morbidly Obese. PT for eval/tx for recommendations. 3. Renal Insufficiency: Acute on Chronic. Creatinine 1.63 on 03/16/17, previously 1.48 on 03/15/17. Pt refusing IV and labs at this time. Will check labs in am. Goddard in place from previous admission, plan for outpatient follow up w/ Dr. Blanca 4. DVT: On Coumadin, Acute UE DVT on previous admit, started on Coumadin. Unable to check labs as pt refusing, will check PT/INR in am. 5. Social work for d/c planning as needed. 6. Case discussed with the patient,. nurse, [place] Patient improved. Patient was discharged [place] with home health per CM arrangements. Her brother will take her home. Pt Condition on Discharge: Stable Discharge Disposition: Disch w/ Home Health Serv Discharge Time: > 30 minutes Discharge Instructions DIET: Follow Instructions for: Diabetic Diet Activities you can perform: Regular-No Restrictions Follow up Referrals: PCP Follow-up - 3-5 Days Continued Medications: Calcitriol (Rocaltrol) 0.25 Mcg Cap 0.5 MCG PO DAILY Electrolyte Replacement #60 CAP Gabapentin (Neurontin) 100 Mg Cap 100 MG PO BID neuropathy #60 Ref 0 CAP Nystatin Topical (Nystatin Topical) 100,000 unit/gm Cream 1 APPLIC TOPICAL Q12HR Rash #1 TUBE Omeprazole (Omeprazole) 40 Mg Cap 40 MG PO DAILY gastritis #30 Ref 0 CAP Quetiapine (Quetiapine) 25 Mg Tab 25 MG PO HS depression #60 TAB Warfarin (Coumadin) 5 Mg Tab 5 MG PO DAILY@16 dvt #30 TAB MaryB eth Wu MD Mar 18, 2017 13:55
--- NOTE | 2017-03-18 14:01 | HHI.FF ---
Face to Face Verification Diagnosis: (1) CKD stage 3 due to type 2 diabetes mellitus (2) Morbid obesity with BMI of 45.0-49.9, adult (3) Secondary hyperparathyroidism (of renal origin) (4) Generalized weakness (5) DVT (deep venous thrombosis) Physical Therapy Order: Evaluate and Treat Home Health Nursing Order: Medical education Signs/symptoms of disease process Diabetic education Medication education-adverse effect Nursing assessment with vital signs Instructions: nurses also chack INR and patient also to follow up with her PCP I have seen patient Tejas Marie on 03/18/17. My clinical findings support the need for the requested home health care services because: Ltd mobility - disease progression Deconditioned w/ increased weakness I certify that my clinical findings support that this patient is homebound because: Post-op weakness Impaired cognitive ability/safety Mary Beth Wu MD Mar 18, 2017 14:01
[2017-03-18] MEDS ORDERED: WARFARIN SOD 5 MG TAB PO SCH (16:00)
[2017-03-18] MEDS ORDERED: QUEtiapine FUMARATE 25 MG TAB PO SCH (21:00)
[2017-03-30] MEDS ORDERED: LISI2.5T3 PO (14:02)
[2017-03-30] MEDS ORDERED: NEUR100C PO (15:30)
[2017-04-05] MEDS ORDERED: BACT400T PO (10:54)
[2017-04-05] MEDS ORDERED: BETH25TA2 PO (10:54)
[2017-04-21] MEDS ORDERED: COUM5TAB PO (16:59)
== END 2017-03-18 15:41 | disposition home or self-care (01) ==
LOC: NEPC 19:18 → NEDA 21:16 → NEPFCDU 03-18 00:07
PROVIDERS: ADMIT Hospitalist; ATTEND Hospitalist
DX: R53.1 Weakness (principal); R41.89 Other symptoms and signs involving cognitive functions and awareness; I12.9 Hypertensive chronic kidney disease with stage 1 through stage 4 chronic kidney disease, or unspecified chronic kidney disease; N18.3 Chronic kidney disease, stage 3 (moderate); E11.22 Type 2 diabetes mellitus with diabetic chronic kidney disease; F60.3 Borderline personality disorder; E66.9 Obesity, unspecified; J45.909 Unspecified asthma, uncomplicated; K21.9 Gastro-esophageal reflux disease without esophagitis; K31.84 Gastroparesis; M10.9 Gout, unspecified; N31.9 Neuromuscular dysfunction of bladder, unspecified; Z87.01 Personal history of pneumonia (recurrent); Z87.442 Personal history of urinary calculi; I82.409 Acute embolism and thrombosis of unspecified deep veins of unspecified lower extremity; Z79.01 Long term (current) use of anticoagulants; Z68.43 Body mass index [BMI] 50.0-59.9, adult
CPT/HCPCS: 97162; 99285; G0378; G8987; G8988

== ENCOUNTER 2017-08-29 14:44 | Emergency (ER) | payer MEDICAID ==
[~2017-08-29] VITALS: Ht 175.3 cm; Wt 120.0 kg
[~2017-08-29 14:44] MED LIST changes: +BETH25TA2 PO; +CHOL1CAP34 PO; +FERR325C PO; +LISI2.5T3 PO
[2017-08-29 15:00] VITALS: BP 124/56; PULSE 87; RESP 20; TEMP 97.4; O2SAT 99
--- NOTE | 2017-08-29 16:37 | PD ---
HPI Chief Complaint: Syncope/Near-Syncope Time Seen by Provider: 16:33 Travel History International Travel<30 days: No Contact w/Intl Traveler<30days: No Traveled to known affect area: No History of Present Illness HPI 51-year-old female presents the emergency department via EMS with reported syncopal episode while eating at her home. Patient lives with her family. Patient's history of anemia, diabetes, and syncopal episodes in the past. Patient states currently she feels fine and does not want any medical treatment. Patient refused IV insertion by EMS staff. She is complaining of no pain, headache, or other constitutional symptoms. She is alert and oriented 3. Patient has history of MRSA and allergies to codeine and doxepin. PFSH Past Medical History Hx Anticoagulant Therapy: Yes (on Coumadin) Anemia: Yes (IRON DEFICIENCY) Arthritis: Yes Asthma: Yes Blood Disorders: No Anxiety: Yes Depression: Yes Heart Rhythm Problems: No Cancer: No Cardiovascular Problems: Yes High Cholesterol: No Chest Pain: No Congestive Heart Failure: No Developmental Delay: Yes Diabetes: Yes Patient Takes Glucophage: No Diminished Hearing: No Deep Vein Thrombosis: Yes (right brachial) Endocrine: Yes Gastrointestinal Disorders: Yes (gastroparesis) GERD: Yes Glaucoma: No Gout: Yes Genitourinary: Yes Headaches: Yes Heparin Induced Thrombocytopen: No Hypertension: Yes (LOW) Immune Disorder: No Implanted Vascular Access Dvce: No Kidney Stones: Yes Musculoskeletal: Yes Neurologic: Yes (NEUROPATHY) Psychiatric: Yes ("i have mental problems but I don't know what they are") Reproductive: No Respiratory: Yes (ASTHMA, HX PNEUMONIA) Immunizations Current: No Migraines: Yes Pneumonia: Yes Seizures: No Sickle Cell Disease: No Thyroid Disease: Yes (USE TO TAKE SYNTHROID) Tetanus Vaccination: < 5 Years ?: Not Menopausal: Yes Past Surgical History AICD: No Arteriovenous Shunt: No Cholecystectomy: Yes Genitourinary Surgery: Yes (LITHOTRIPSY) Insulin Pump: No Joint Replacement: No Oral Surgery: Yes (TONSILLECTOMY) Pacemaker: No Tonsillectomy: Yes Other Surgery: Yes (TONSILS) Social History Alcohol Use: No Tobacco Use: No Substance Use: No Allergies-Medications (Allergen,Severity, Reaction): Coded Allergies: doxepin (Unverified Allergy, Severe, HIVES, 07/11/17) codeine (Unverified Adverse Reaction, Severe, NAUSEA/VOMITING, 07/11/17) *MDRO Multi-Drug Resistant Organism (Unverified Adverse Reaction, Unknown , 05/02/17) MRSA (foot) - 06/29/11, 08/04/11 MRSA PCR Screen POSITIVE 02/17/17 Reported Meds & Prescriptions Reported Meds & Active Scripts Active Iron (Ferrous Sulfate) 325 Mg Capsule.er 1 Cap PO DAILY Vitamin D3 (Cholecalciferol) 50,000 Unit Cap 50,000 Units PO Q7D Coumadin (Warfarin) 5 Mg Tab 5 Mg PO DAILY@16 Bethanechol 25 Mg Tab 25 Mg PO Q8HR Neurontin (Gabapentin) 100 Mg Cap 100 Mg PO BID Omeprazole 40 Mg Cap 40 Mg PO DAILY Quetiapine (Quetiapine Fumarate) 25 Mg Tab 25 Mg PO HS Nystatin Topical (Nystatin) 100,000 unit/gm Cream 1 Applic TOPICAL Q12HR Rocaltrol (Calcitriol) 0.25 Mcg Cap 0.5 Mcg PO DAILY Reported Lisinopril 2.5 Mg Tab 2.5 Mg PO DAILY Review of Systems Except as stated in HPI: all other systems reviewed are Neg General / Constitutional: No: Fever Eyes: No: Visual changes HENT: No: Headaches Cardiovascular: No: Chest Pain or Discomfort Respiratory: No: Shortness of Breath Gastrointestinal: No: Abdominal Pain Genitourinary: No: Dysuria Musculoskeletal: No: Pain Skin: No Rash Neurologic: No: Weakness Psychiatric: No: Depression Endocrine: No: Polydipsia Hematologic/Lymphatic: No: Easy Bruising Physical Exam Exam Limitations: Uncooperative Narrative GENERAL: Patient appears in no acute distress. She is alert and oriented 3. SKIN: Warm and dry. Mild pallor. No diaphoresis. Turgor. HEAD: Atraumatic. Normocephalic. EYES: Pupils equal and round. No scleral icterus. No injection or drainage. ENT: No nasal bleeding or discharge. Mucous membranes pink and moist. Pharynx is clear. Airway is patent. NECK: Trachea midline. Supple and nontender. CARDIOVASCULAR: Regular rate and rhythm. RESPIRATORY: No accessory muscle use. Clear to auscultation. Breath sounds equal bilaterally. GASTROINTESTINAL: Abdomen soft, non-tender, nondistended. Hepatic and splenic margins not palpable. MUSCULOSKELETAL: Extremities without clubbing, cyanosis, or edema. No obvious deformities. NEUROLOGICAL: Awake and alert. No obvious cranial nerve deficits. Motor grossly within normal limits. Five out of 5 muscle strength in the arms and legs. Normal speech. PSYCHIATRIC: Appropriate mood and affect; insight and judgment normal. Data Data Last Documented VS Vital Signs Date Time Temp Pulse Resp B/P (MAP) Pulse Ox O2 Delivery O2 Flow Rate FiO2 08/29/17 15:00 97.4 87 20 124/56 (78) 99 MDM Medical Decision Making Medical Screen Exam Complete: Yes Emergency Medical Condition: Yes Differential Diagnosis Witnessed syncope. Anemia. Low blood sugar. Electrolyte imbalance. Narrative Course Patient is currently medically stable at this time. Patient is refusing any further medical treatment or workup even though I feel this should be done. Call was placed to the patient's family who feel that she is able to make her own decisions or numbness regard. Patient is going to leave AMA. Diagnosis Primary Impression: Syncope Disposition: AGAINST MEDICAL ADVICE Condition: Stable Juan Dumont Aug 29, 2017 16:37
== END 2017-08-29 16:40 | disposition left against medical advice (07) ==
LOC: NEDAMB 14:44
DX: R55 Syncope and collapse (principal)
CPT/HCPCS: 99281

== ENCOUNTER 2017-08-31 23:48 | Inpatient (IN) | payer MEDICAID ==
[~2017-08-31] VITALS: Ht 172.7 cm; Wt 141.4 kg
[2017-08-31 23:56] VITALS: BP 74/46; PULSE 79; RESP 24
[2017-09-01] VITALS (16 sets, daily range): BP systolic 86–131; BP diastolic 47–66; PULSE 61–92; RESP 12–26; TEMP 97.5–98.7; O2SAT 26–100
[2017-09-01] MEDS ORDERED: SODIUM CHLOR 0.9% 1000 ML INJ 1,000 ML IV ONE ×2 (00:02→02:15)
[2017-09-01] MEDS ORDERED: SODIUM CHLORIDE 0.9% FLUSH 10 ML FLUSH IVF PRN (00:15)
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
--- NOTE | 2017-09-01 00:24 | RADRPT ---
EXAM DATE/TIME: 09/01/2017 00:05 [facility] COMPARISON: CHEST SINGLE AP, February 16, 2017, 17:04. INDICATIONS : Syncope, dizziness. MEDICAL HISTORY : Diabetes mellitus type II. Hypotension, kidney disease, anemia. SURGICAL HISTORY : None. ENCOUNTER: Initial ACUITY: 1 day PAIN SCORE: 0/10 LOCATION: Bilateral chest FINDINGS: A single view of the chest demonstrates the lungs to be symmetrically aerated without evidence of mas s, infiltrate or effusion. The cardiomediastinal contours are unremarkable. Osseous structures are intact. CONCLUSION: No acute disease. Evangelist Ramirez Jr., MD on September 01, 2017 at 0:23 Board Certified Radiologist. This report was verified electronically.
[2017-09-01] MEDS ORDERED: LIDOCAINE 4% CREAM 5 GM TUBE TOPICAL ONE (00:30)
[2017-09-01 01:28] LABS: AUTOMATED NEUTROPHIL # 3.8 TH/MM3 (1.8-7.7); BASOPHIL # 0.1 TH/MM3 (0-0.2); BASOPHIL % 1.2 % (0.0-2.0); EOSINOPHIL # 0.2 TH/MM3 (0-0.4); EOSINOPHIL % 3.9 % (0.0-4.0); HEMATOCRIT 30.1 % (35.0-46.0); HEMO FLAGS DIFF FINAL; LYMPH % 22.7 % (9.0-44.0); LYMPHOCYTE # 1.4 TH/MM3 (1.0-4.8); MEAN CELL VOLUME 87.5 FL (80.0-100.0); MONO % 8.6 % (0.0-8.0); NEUT % 63.6 % (16.0-70.0); PLATELET COUNT 126 TH/MM3 (150-450); RED BLOOD COUNT 3.44 MIL/MM3 (4.00-5.30); RED CELL DISTRIBUTION WIDTH 15.6 % (11.6-17.2)
[2017-09-01 01:35] LABS: APTT (PATIENT) 26.4 SEC (24.3-30.1); INTERNATIONAL NORMALIZED RATIO 0.9 RATIO; PROTHROMBIN TIME - PATIENT 10.3 SEC (9.8-11.6)
[2017-09-01] MEDS ORDERED: LORazepam 2 MG/ML VIAL IV PUSH ONE (01:45)
[2017-09-01 02:03] LABS: ALKALINE PHOSPHATASE 73 U/L (45-117); ALT (GPT) 11 U/L (10-53); ANION GAP 10 MEQ/L (5-15); AST (GOT) 10 U/L (15-37); BICARBONATE 14.5 MEQ/L (21.0-32.0); BLOOD UREA NITROGEN 81 MG/DL (7-18); CHLORIDE 111 MEQ/L (98-107); CREATINE KINASE 163 U/L (26-192); GLOMERULAR FILTRATION RATE 7 ML/MIN (>89); MAGNESIUM 2.4 MG/DL (1.5-2.5); SODIUM (NA) 135 MEQ/L (136-145); TOTAL BILIRUBIN ADULT 0.2 MG/DL (0.2-1.0)
[2017-09-01] MEDS ORDERED: CALCIUM GLUCONATE 10% 1 GM/10 ML VIAL SLOW IVP ONE (02:15)
[2017-09-01] MEDS ORDERED: DEXTROSE 50% IN WATER 50 ML VIAL(D50) IV PUSH ONE (02:15)
[2017-09-01] MEDS ORDERED: SODIUM POLYSTYRENE SULFONATE SUSP 15 GM/60 ML CUP PO ONE ×2 (02:15→03:45)
[2017-09-01] MEDS ORDERED: SODIUM BICARBONATE 8.4% SOLN 50 MEQ/50 ML VIAL SLOW IVP ONE (02:15)
[2017-09-01 02:16] LABS: CALCIUM-PROTEIN CORRECTED 6.6 MG/DL (8.5-10.1); POTASSIUM 6.8 MEQ/L (3.5-5.1)
[2017-09-01 02:30] LABS: CKMB 2.1 NG/ML (0.5-3.6)
[2017-09-01] MEDS ORDERED: INSULIN HUMAN REGULAR 1,000 UNITS/10 ML VIAL IV PUSH ONE (02:30)
[2017-09-01] MEDS ORDERED: HALOPERIDOL LACTATE 5 MG/ML AMP IM ONE (03:00)
[2017-09-01] MEDS ORDERED: SODIUM CHLORIDE 0.9% FLUSH 10 ML FLUSH IV FLUSH PRN (03:45)
[2017-09-01] MEDS ORDERED: NALOXONE HCL 0.4 MG/ML AMP IV PUSH PRN (03:45)
--- NOTE | 2017-09-01 04:42 | HHI.HP ---
[facility] Service [facility] Primary Care Physician No Primary Care Physician Admission Diagnosis Acute on Chronic Renal Failure, Severe life-threatening hyperkalemia, anion gap metabolic acidosis secondary to renal failure, Syncope likely cardiogenic because of electrolyte imbalance, and hypocalcemia . Diagnoses: (1) Acute on chronic renal failure (2) Metabolic acidosis (3) Syncope and collapse (4) Hyperkalemia (5) Hypocalcemia Chief Complaint: [place] like she was going to pass out while sitting down Travel History International Travel<30 Days: No Contact w/Intl Traveler <30 Da: No Traveled to Known Affected Are: No History of Present Illness Written by Judith Avalos, acting as scribe for Dr. Gifford on 09/01/17 at 04:41. The patient's behavior is very childlike. She refused Kayexalate initially and had to be coaxed into taking it. The patient states she was felt like she was about to pass out. She states that her roommate witnessed the near-syncopal episode. She states she was sitting down when it occurred. Prior to episode she says she had blurry vision and dizziness. She's had episodes like this "a few times" over the past week. Reports some diarrhea - relates to lactose intolerance. Denies dysuria, hematuria, nausea, vomiting, abdominal pain, hematochezia or melena. Denies chest pain, shortness of breath, or palpitations. Recently requiring 3 pillows to sleep at night. . Review of Systems Except as stated in HPI: all other systems reviewed are Neg Past Family Social History Past Medical History Hypertension Diabetes Mellitus Stage 3 kidney disease Gastroparesis Anemia Denies CAD, CHF, atrial fibrillation, COPD, emphysema, asthma, sleep apnea, liver problems, DVT, PE, CVA, thyroid problems, or cancers . Past Surgical History Lithotripsy . Reported Medications Reported Meds & Active Scripts Active Iron (Ferrous Sulfate) 325 Mg Capsule.er 1 Cap PO DAILY Vitamin D3 (Cholecalciferol) 50,000 Unit Cap 50,000 Units PO Q7D Coumadin (Warfarin) 5 Mg Tab 5 Mg PO DAILY@16 Bethanechol 25 Mg Tab 25 Mg PO Q8HR Neurontin (Gabapentin) 100 Mg Cap 100 Mg PO BID Omeprazole 40 Mg Cap 40 Mg PO DAILY Quetiapine (Quetiapine Fumarate) 25 Mg Tab 25 Mg PO HS Nystatin Topical (Nystatin) 100,000 unit/gm Cream 1 Applic TOPICAL Q12HR Rocaltrol (Calcitriol) 0.25 Mcg Cap 0.5 Mcg PO DAILY Reported Lisinopril 2.5 Mg Tab 2.5 Mg PO DAILY . Allergies: Coded Allergies: doxepin (Unverified Allergy, Severe, HIVES, 07/11/17) codeine (Unverified Adverse Reaction, Severe, NAUSEA/VOMITING, 07/11/17) *MDRO Multi-Drug Resistant Organism (Unverified Adverse Reaction, Unknown , 05/02/17) MRSA (foot) - 06/29/11, 08/04/11 MRSA PCR Screen POSITIVE 02/17/17 Active Ordered Medications Current Medications Sodium Chloride (NS Flush) 2 ml UNSCH PRN IVF FLUSH AFTER USING IV ACCESS; Start 09/01/17 at 00:15; Stop 09/01/17 at 03:47; Status DC Sodium Chloride 1,000 ml @ 1,000 mls/hr Q1H ONCE IV Last administered on 01:15; Start 09/01/17 at 00:02; Stop 09/01/17 at 01:01; Status DC Lidocaine (L-M-X 4 Cream) 1 applic ONCE ONCE TOPICAL ; Start 09/01/17 at 00:30 ; Stop 09/01/17 at 00:31; Status DC Lorazepam (Ativan Inj) 1 mg ONCE ONCE IV PUSH Last administered on 09/01/17 02:43; Start 09/01/17 at 01:45; Stop 09/01/17 at 01:46; Status DC Sodium Chloride 1,000 ml @ 999 mls/hr BOLUS ONCE IV Last administered on 09/01 02:43; Start 09/01/17 at 02:15; Stop 09/01/17 at 03:15; Status DC Calcium Gluconate (Calcium Gluconate Inj) 2 gm ONCE ONCE SLOW IVP Last administered on 09/01/17 03:00; Start 09/01/17 at 02:15; Stop 09/01/17 at 02:17 ; Status DC Insulin Human Regular (NovoLIN R INJ) 10 units ONCE ONCE IV PUSH Last administered on 09/01/17 03:06; Start 09/01/17 at 02:30; Stop 09/01/17 at 02:31 ; Status DC Dextrose (D50w (Vial) Inj) 50 ml ONCE ONCE IV PUSH Last administered on 02:55; Start 09/01/17 at 02:15; Stop 09/01/17 at 02:17; Status DC Sodium Bicarbonate (Sodium Bicarbonate 8.4% Inj) 150 meq ONCE ONCE SLOW IVP Last administered on 09/01/17 03:11; Start 09/01/17 at 02:15; Stop 09/01/17 at 02:17; Status DC Sodium Polystyrene Sulfonate (Kayexalate Liq) 15 gm ONCE ONCE PO ; Start at 02:15; Stop 09/01/17 at 02:17; Status DC Haloperidol Lactate (Haldol Inj) 5 mg ONCE ONCE IM Last administered on 03:00; Start 09/01/17 at 03:00; Stop 09/01/17 at 03:01; Status DC Sodium Chloride (NS Flush) 2 ml UNSCH PRN IV FLUSH FLUSH AFTER USING IV ACCESS ; Start 09/01/17 at 03:45 Sodium Chloride (NS Flush) 2 ml BID IV FLUSH ; Start 09/01/17 at 09:00 Naloxone HCl (Narcan Inj) 0.4 mg UNSCH PRN IV PUSH SEE LABEL COMMENTS; Start 09/01/17 at 03:45 Sodium Polystyrene Sulfonate (Kayexalate Liq) 15 gm ONCE ONCE PO ; Start at 03:45; Stop 09/01/17 at 03:54; Status DC . Family History Cancer - will not elaborate further . Social History Lives with roommate and mother (age 78 y/o) Requires a walker for ambulation Tobacco: never smoked Alcohol: denies Illicit Drugs: denies . Physical Exam Vital Signs Vital Signs Date Time Temp Pulse Resp B/P (MAP) Pulse Ox O2 Delivery O2 Flow Rate FiO2 09/01/17 03:22 68 13 110/53 (72) 100 Room Air 09/01/17 01:24 67 16 113/55 (74) 98 Room Air 08/31/17 23:59 98 Room Air 08/31/17 23:56 79 24 74/46 (55) Physical Exam GENERAL: This is a morbidly obese female patient, in no apparent distress. SKIN: No rashes. Cool and dry. Plantar surface of left foot with skin tear on plantar distal aspect. Right foot ulceration dime sized inferior to great toe, plantar surface without erythema. HEAD: Atraumatic. Normocephalic. EYES: No scleral icterus. No injection or drainage. ENT: Nose without bleeding, purulent drainage. Airway patent. NECK: Trachea midline. No JVD. CARDIOVASCULAR: Regular rate and rhythm without murmurs, gallops, or rubs. RESPIRATORY: Clear to auscultation. Breath sounds equal bilaterally. No wheezes , rales, or rhonchi. GASTROINTESTINAL: Abdomen soft, non-tender, nondistended. No guarding. MUSCULOSKELETAL: Extremities without clubbing, cyanosis. Left metatarsal amputation. No calf tenderness. 2+ bilateral lower extremity edema. NEUROLOGICAL: Awake and alert. Motor and sensory grossly within normal limits. Normal speech. Laboratory Laboratory Tests Test 09/01/17 01:10 White Blood Count 6.0 Red Blood Count 3.44 Hemoglobin 9.6 Hematocrit 30.1 Mean Corpuscular Volume 87.5 Mean Corpuscular Hemoglobin 28.0 Mean Corpuscular Hemoglobin Concent 32.0 Red Cell Distribution Width 15.6 Platelet Count 126 Mean Platelet Volume 9.9 Neutrophils (%) (Auto) 63.6 Lymphocytes (%) (Auto) 22.7 Monocytes (%) (Auto) 8.6 Eosinophils (%) (Auto) 3.9 Basophils (%) (Auto) 1.2 Neutrophils # (Auto) 3.8 Lymphocytes # (Auto) 1.4 Monocytes # (Auto) 0.5 Eosinophils # (Auto) 0.2 Basophils # (Auto) 0.1 CBC Comment DIFF FINAL Differential Comment Prothrombin Time 10.3 Prothromb Time International Ratio 0.9 Activated Partial Thromboplast Time 26.4 Blood Urea Nitrogen 81 Creatinine 6.61 Random Glucose 89 Total Protein 7.3 Albumin 3.1 Calcium Level 6.6 Magnesium Level 2.4 Alkaline Phosphatase 73 Aspartate Amino Transf (AST/SGOT) 10 Alanine Aminotransferase (ALT/SGPT) 11 Total Bilirubin 0.2 Sodium Level 135 Potassium Level 6.8 Chloride Level 111 Carbon Dioxide Level 14.5 Anion Gap 10 Estimat Glomerular Filtration Rate 7 Protein Corrected Calcium 6.6 Total Creatine Kinase 163 Creatine Kinase MB 2.1 Troponin I LESS THAN 0.02 B-Type Natriuretic Peptide 152 Result Diagram: 09/01/17 0110 09/01/17 0110 Imaging Last Impressions Chest X-Ray 09/01/17 0002 Signed Impressions: Service Date/Time: Friday, September 01, 2017 00:05 - CONCLUSION: No acute disease. Evangelist Ramirez Jr., MD . Caprini VTE Risk Assessment Caprini VTE Risk Assessment: Mod/High Risk (score >= 2) Caprini Risk Assessment Model Point Value = 1 Point Value = 2 Point Value = 3 Point Value = 5 Age 41-60 Minor surgery BMI > 25 kg/m2 Swollen legs Varicose veins or History of unexplained or recurrent spontaneous Oral contraceptives or hormone replacement Sepsis (< 1 month) Serious lung disease, including pneumonia (< 1 month) Abnormal pulmonary function Acute myocardial infarction Congestive heart failure (< 1 month) History of inflammatory bowel disease Medical patient at bed rest Age 61-74 Arthroscopic surgery Major open surgery (> 45 min) Laparoscopic surgery (> 45 min) Malignancy Confined to bed (> 72 hours) Immobilizing plaster cast Central venous access Age >= 75 History of VTE Family history of VTE Factor V Leiden Prothrombin [id number] Lupus anticoagulant Anticardiolipin antibodies Elevated serum homocysteine Heparin-induced thrombocytopenia Other congenital or acquired thrombophilia Stroke (< 1 month) Elective arthroplasty Hip, pelvis, or leg fracture Acute spinal cord injury (< 1 month) Prophylaxis Regimen Total Risk Factor Score Risk Level Prophylaxis Regimen 0-1 Low Early ambulation 2 Moderate Order ONE of the following: *Sequential Compression Device (SCD) *Heparin 5000 units SQ BID 3-4 Higher Order ONE of the following medications: *Heparin 5000 units SQ TID *Enoxaparin/Lovenox 40 mg SQ daily (WT < 150 kg, CrCl > 30 mL/min) *Enoxaparin/Lovenox 30 mg SQ daily (WT < 150 kg, CrCl > 10-29 mL/min) *Enoxaparin/Lovenox 30 mg SQ BID (WT < 150 kg, CrCl > 30 mL/min) AND/OR *Sequential Compression Device (SCD) 5 or more Highest Order ONE of the following medications: *Heparin 5000 units SQ TID (Preferred with Epidurals) *Enoxaparin/Lovenox 40 mg SQ daily (WT < 150 kg, CrCl > 30 mL/min) *Enoxaparin/Lovenox 30 mg SQ daily (WT < 150 kg, CrCl > 10-29 mL/min) *Enoxaparin/Lovenox 30 mg SQ BID (WT < 150 kg, CrCl > 30 mL/min) AND *Sequential Compression Device (SCD) Assessment and Plan Problem List: (1) Syncope and collapse ICD Code: R55 - Syncope and collapse Status: Acute (2) Hyperkalemia ICD Code: E87.5 - Hyperkalemia Status: Acute (3) Acute on chronic renal failure ICD Code: N17.9 - Acute kidney failure, unspecified; N18.9 - Chronic kidney disease, unspecified (4) Metabolic acidosis ICD Code: E87.2 - Acidosis (5) Hypocalcemia ICD Code: E83.51 - Hypocalcemia Status: Acute Assessment and Plan 51 y/o female who presented to ED for evaluation of syncope: Acute on Chronic Renal Failure - BUN 81, creatinine 6.61, estimated GFR 7 - significantly worsened compared to prior labs - Consult nephrology - appreciate assistance - IV fluid hydration with normal saline bolus 1 L 2 Anion gap metabolic acidosis secondary to renal failure - D5 W with sodium bicarbonate 8.4% at 42 cc per hour - BMP will be repeated every 4 hours - will follow results Syncope likely cardiogenic because of electrolyte imbalance - Echocardiogram to evaluate cardiac structure and function - Carotid u/s to r/o carotid stenosis Hypocalcemia - IV calcium gluconate Severe, life-threatening hyperkalemia - Initial potassium 6.8 - Kayexalate to total 30 g by mouth 1 dose - the patient was refusing it - coaxed patient and taking it during my visit - Treated in ED with sodium bicarbonate, D50, insulin 10 units IV push, and calcium gluconate 2 g slow IV push - Repeat BMP every 4 hours and follow potassium level results Questionable decision-making capacity - suspect she is unable to make her own medical decisions including refusal of treatment and AMA - Consulted psychiatry Foot ulcer - does not appear infected - consult podiatry - Right foot ulceration dime sized inferior to great toe, plantar surface without erythema on exam DVT prophylaxis - resume home anticoagulation once medication reconciliation is completed by nursing . Discussed Condition With ER physician, RN, and patient . Physician Certification 2 Midnight Certification Type: Admission for Inpatient Services Order for Inpatient Services The services are ordered in accordance with Medicare regulations or non- Medicare payer requirements, as applicable. In the case of services not specified as inpatient-only, they are appropriately provided as inpatient services in accordance with the 2-midnight benchmark. Estimated LOS (days): 3 days is the estimated time the patient will need to remain in the hospital, assuming treatment plan goals are met and no additional complications. Post-Hospital Plan: Not yet determined Judith Avalos Sep 01, 2017 04:42
[2017-09-01] MEDS ORDERED: DEXTROSE 50% IN WATER 50 ML VIAL(D50) IV PUSH PRN (05:00)
[2017-09-01] MEDS ORDERED: GLUCAGON 1 MG/ML VIAL OTHER PRN (05:00)
[2017-09-01] MEDS: SODIUM BICARBONATE 8.4% INJ 100 MEQ in DEXTROSE 5% IN WATE 1000ML INJ 1,000 ML IV SCH ×6 (05:20→23:06)
[2017-09-01] MEDS: SODIUM BICARBONATE 650 MG TAB PO SCH ×3 (06:00→21:16)
[2017-09-01 07:30] LABS: BICARBONATE 15.8 MEQ/L (21.0-32.0); POTASSIUM 5.3 MEQ/L (3.5-5.1)
[2017-09-01] MEDS ORDERED: INSULIN ASPART SUPPLEMENTAL SCALE SQ SCH (08:00)
[2017-09-01 08:09] LABS: CALCIUM-PROTEIN CORRECTED 7.1 MG/DL (8.5-10.1)
[2017-09-01] MEDS: CALCIUM CARBONATE 1.25 GM (CA 500 MG) TAB PO SCH ×2 (09:00→21:16)
[2017-09-01] MEDS: SODIUM CHLORIDE 0.9% FLUSH 10 ML FLUSH IV FLUSH SCH ×2 (09:11→21:17)
[2017-09-01] MEDS ORDERED: SODIUM BICARBONATE 8.4% INJ 50 MEQ/50 ML SYR ONE (09:35)
[2017-09-01] MEDS ORDERED: CALCIUM CARBONATE 1.25 GM (CA 500 MG) TAB PO SCH (10:00)
[2017-09-01] MEDS ORDERED: SODIUM BICARBONATE 8.4% INJ 50 MEQ/50 ML SYR IV PUSH ONE (10:15)
[2017-09-01 10:32] LABS: BLOOD GAS BASE EXCESS -14.7 mmol/L (-2-2); BLOOD GAS CARBOXYHEMOGLOBIN 0.9 % (0-4); BLOOD GAS HCO3 12 mmol/L (22-26); BLOOD GAS O2 HGB SATURATION 97 % (90-100); BLOOD GAS OXYGEN CONTENT 11.7 Vol % (12.0-20.0); BLOOD GAS PCO2 34 mmHg (38-42); BLOOD GAS PO2 129 mmHg (61-120); BLOOD GAS TOTAL HGB 8.5 G/DL (12.0-16.0); TEMP CORR TO 98.6
[2017-09-01 10:33] LABS: CRITICAL VALUE YES; DRAW SITE RT RADIAL; FIO2 21 %; NUMBER OF ARTERIAL PUNCTURES 1; STAT YES; ULNAR PULSE PRESENT
--- NOTE | 2017-09-01 10:45 | PD.CONS ---
[facility] Service Critical Care Medicine Consult Requested By Dr. Harper Reason for Consult Hypotension Severe metabolic acidosis Severe dehydration Acute on chronic kidney disease Hypoglycemia Hyperkalemia Acute encephalopathy Primary Care Physician No Primary Care Physician History of Present Illness Patient is a 51-year-old female with long-standing type 2 diabetes, history of noncompliance, history of chronic kidney disease, hypertension who was brought to the emergency department for a witnessed near-syncopal episode. Patient was admitted to the hospitalist service for severe dehydration and hypotension hyperkalemia and acute on chronic kidney disease. Patient has a history of syncopal episodes in the past but most of the time signs out AGAINST MEDICAL ADVICE. Her cardiac enzymes have been negative. Abnormal labs include potassium 6.8 bicarbonate 14.5 BUN 81 with creatinine 6.6 and a calcium of 6.6. Her baseline creatinine is between 1.5 and 2. Patient was given fluid boluses and was placed on a bicarbonate infusion and admitted to ICU as a CIC overflow Critical care medicine was consulted today for persistent hypotension and encephalopathy. On my evaluation her map was 50, she was somnolent but wakes up easily. Patient had refused her Kayexalate before. Clinically appears very dehydrated. I have ordered additional 3 L bolus of normal saline stat. Patient had been hypoglycemic with blood sugar last reading 55. I have added D10 at 42 ML per hour as well. ABG shows pH 7.17 pCO2 34 and bicarb -15. Currently receiving bicarbonate infusion at 42 mL per hour this had been increased to 150 ML per hour. A Goddard had been requested as well as nephrology consult Review of Systems ROS Limitations: Altered Mental Status Past Family Social History Allergies: Coded Allergies: doxepin (Unverified Allergy, Severe, HIVES, 07/11/17) codeine (Unverified Adverse Reaction, Severe, NAUSEA/VOMITING, 07/11/17) *MDRO Multi-Drug Resistant Organism (Unverified Adverse Reaction, Unknown , 05/02/17) MRSA (foot) - 06/29/11, 08/04/11 MRSA PCR Screen POSITIVE 02/17/17 Past Medical History Hypertension Diabetes Mellitus Stage 3 kidney disease Gastroparesis Anemia Medical noncompliance History of right brachial vein DVT 03/04/17 Past Surgical History Lithotripsy Reported Medications Iron (Ferrous Sulfate) 325 Mg Capsule.er 1 Cap PO DAILY Vitamin D3 (Cholecalciferol) 50,000 Unit Cap 50,000 Units PO Q7D Coumadin (Warfarin) 5 Mg Tab 5 Mg PO DAILY@16 Bethanechol 25 Mg Tab 25 Mg PO Q8HR Neurontin (Gabapentin) 100 Mg Cap 100 Mg PO BID Omeprazole 40 Mg Cap 40 Mg PO DAILY Quetiapine (Quetiapine Fumarate) 25 Mg Tab 25 Mg PO HS Nystatin Topical (Nystatin) 100,000 unit/gm Cream 1 Applic TOPICAL Q12HR Rocaltrol (Calcitriol) 0.25 Mcg Cap 0.5 Mcg PO DAILY Reported Lisinopril 2.5 Mg Tab 2.5 Mg PO DAILY Active Ordered Medications Reviewed Family History Unable to obtain due to altered mentation Social History Apparently lives with roommate and mother. Never smoked. No alcohol use Physical Exam Vital Signs Vital Signs Date Time Temp Pulse Resp B/P (MAP) Pulse Ox O2 Delivery O2 Flow Rate FiO2 09/01/17 10:00 89 09/01/17 08:00 65 09/01/17 07:44 97.5 68 94/52 (66) 26 09/01/17 07:00 96 Room Air 09/01/17 06:27 09/01/17 06:15 98.7 75 25 119/56 (77) 93 09/01/17 05:21 75 15 114/53 (73) 100 Room Air 09/01/17 04:54 75 15 101/57 (72) 100 Room Air 09/01/17 03:48 68 12 86/47 (60) 100 Room Air 09/01/17 03:22 68 13 110/53 (72) 100 Room Air 09/01/17 01:24 67 16 113/55 (74) 98 Room Air 08/31/17 23:59 98 Room Air 08/31/17 23:56 79 24 74/46 (55) Physical Exam GENERAL: Morbidly obese female patient, lying in bed somnolent and lethargic SKIN: Bilateral diabetic foot ulceration. S/p L transmetatarsal amputation HEAD: Atraumatic. Normocephalic. EYES: No scleral icterus. No injection or drainage. ENT: Airway patent. Oral mucosa is dry NECK: Trachea midline. No JVD. CARDIOVASCULAR: Regular rate and rhythm without murmurs, gallops, or rubs. RESPIRATORY: Clear to auscultation. Breath sounds equal bilaterally. GASTROINTESTINAL: Abdomen obese soft, non-tender, nondistended. No guarding. MUSCULOSKELETAL: Extremities without clubbing, cyanosis. Left transmetatarsal amputation. NEUROLOGICAL: Patient is somnolent and lethargic but wakes up, intermittently answers questions but falls back to sleep. Moves all extremities Laboratory Laboratory Tests Test 09/01/17 01:10 09/01/17 06:30 09/01/17 09:05 White Blood Count 6.0 Red Blood Count 3.44 Hemoglobin 9.6 Hematocrit 30.1 Mean Corpuscular Volume 87.5 Mean Corpuscular Hemoglobin 28.0 Mean Corpuscular Hemoglobin Concent 32.0 Red Cell Distribution Width 15.6 Platelet Count 126 Mean Platelet Volume 9.9 Neutrophils (%) (Auto) 63.6 Lymphocytes (%) (Auto) 22.7 Monocytes (%) (Auto) 8.6 Eosinophils (%) (Auto) 3.9 Basophils (%) (Auto) 1.2 Neutrophils # (Auto) 3.8 Lymphocytes # (Auto) 1.4 Monocytes # (Auto) 0.5 Eosinophils # (Auto) 0.2 Basophils # (Auto) 0.1 CBC Comment DIFF FINAL Differential Comment Prothrombin Time 10.3 Prothromb Time International Ratio 0.9 Activated Partial Thromboplast Time 26.4 Blood Urea Nitrogen 81 78 Creatinine 6.61 6.45 Random Glucose 89 93 Total Protein 7.3 6.7 Albumin 3.1 Calcium Level 6.6 6.9 Magnesium Level 2.4 Alkaline Phosphatase 73 Aspartate Amino Transf (AST/SGOT) 10 Alanine Aminotransferase (ALT/SGPT) 11 Total Bilirubin 0.2 Sodium Level 135 141 Potassium Level 6.8 5.3 Chloride Level 111 113 Carbon Dioxide Level 14.5 15.8 Anion Gap 10 12 Estimat Glomerular Filtration Rate 7 7 Protein Corrected Calcium 6.6 7.1 Total Creatine Kinase 163 Creatine Kinase MB 2.1 Troponin I LESS THAN 0.02 B-Type Natriuretic Peptide 152 Nasal Screen MRSA (PCR) MRSA NOT DETECTED Blood Gas Puncture Site RT RADIAL Blood Gas Patient Temperature 98.6 Blood Gas HCO3 12 Blood Gas Base Excess -14.7 Blood Gas Oxygen Saturation 97 Arterial Blood pH 7.17 Arterial Blood Partial Pressure CO2 34 Arterial Blood Partial Pressure O2 129 Arterial Blood Oxygen Content 11.7 Arterial Blood Carboxyhemoglobin 0.9 Arterial Blood Methemoglobin 1.0 Blood Gas Hemoglobin 8.5 Blood Gas Inspired Oxygen 21 Result Diagram: 09/01/17 0110 09/01/17 0630 Imaging CXR no acute disease Assessment and Plan Assessment and Plan ASSESSMENT: Hypotension Severe metabolic acidosis Severe dehydration Acute on chronic kidney disease Hypoglycemia Hyperkalemia Acute encephalopathy Hypertension Diabetes Mellitus Stage 3 kidney disease Gastroparesis Anemia Medical noncompliance History of right brachial vein DVT 03/04/17 on Coumadin (unclear whether compliant ) PLAN: NEURO: - Minimize sedation - Encephalopathy most likely metabolic RESP: - Nasal cannula oxygen - DuoNeb every 6 hours when necessary, IS while awake if patient cooperates CV: - Normal saline IV fluids 3l bolus - IV fluid D5 with bicarbonate infusion at 150 ML per hour, D10 infusion at 42 ML per hour - Strict intake output vasopressors if needed. Cardiac enzymes negative GI: - Nothing by mouth until mental status improved, start 1999 ADA diet when patient is able to take by mouth - IV famotidine : - Monitor renal function closely. Place Goddard catheter. - Acute on chronic kidney failure most likely from severe dehydration - Continue aggressive hydration as above - Hyperkalemia treatment with Kayexalate and IV bicarbonate and IV calcium. Potassium is trending down - Nephrology consulted ID: - Monitor for infection. No antibiotics at this time HEME: - Monitor CBC, CMP, coags - Patient had right upper extremity DVT on 03/04/17 - Was placed on Coumadin but INR 0.9 probably noncompliant, will check repeat right upper extremity ultrasound ENDO: - Treat hypoglycemia with D10 at 42 ML per hour, continue D5 bicarbonate infusion PROPH: - Bilateral lower extremity SCDs. Heparin 5000 units sq q12 LINES: - Utilize peripheral IVs, central line if needed CC time 42 min Code Status Full Discussed Condition With Dr. Harper, bedside RN Martin Nielsen MD Sep 01, 2017 10:45
[2017-09-01] MEDS ORDERED: CALCIUM CHLORIDE 10% SOLN 1 GRAM/10 ML SYR ONE (10:49)
[2017-09-01] MEDS: DEXTROSE 10% INJ 1,000 ML IV SCH ×2 (10:52→23:09)
[2017-09-01] MEDS ORDERED: CALCIUM CHLORIDE INJ 1 GM in SODIUM CHLORIDE 0.9% INJ 100 ML IV ONE (11:00)
[2017-09-01] MEDS ORDERED: CALCIUM CHLORIDE INJ 1 GM in SODIUM CHLORIDE 0.9% INJ 90 ML IV ONE (11:00)
[2017-09-01 11:27] LABS: BICARBONATE 16.8 MEQ/L (21.0-32.0); POTASSIUM 5.6 MEQ/L (3.5-5.1)
[2017-09-01 11:44] LABS: CALCIUM-PROTEIN CORRECTED 6.5 MG/DL (8.5-10.1)
[2017-09-01] MEDS ORDERED: RESP: ALBUTEROL 2.5 MG/IPRATROPIUM 0.5 MG NEB (PRN) NEB (12:00)
--- NOTE | 2017-09-01 12:11 | RADRPT ---
EXAM DATE/TIME: 09/01/2017 08:35 [place] COMPARISON: No previous studies available for comparison. INDICATIONS : Syncope. MEDICAL HISTORY : Osteoarthritis. Renal calculi. Osteoporosis. Thyroid disease. Neuropathy. Head trauma. Syncope. Migra ronald. HTN. Asthma. Gastroparesis. GERD. Renal disease and failure. UTI. Arthritis. DVT. Gout. Diabete s. Depression. Anxiety. MRSA. Anticoagulant therapy, Coumadin. SURGICAL HISTORY : Tonsillectomy. Cholecystectomy. Removal of stone from bowel. Lithotripsy. ENCOUNTER: Initial ACUITY: 1 day PAIN SCORE: Nonresponsive. LOCATION: Bilateral neck PEAK SYSTOLIC VELOCITIES (cm/sec): ICA/CCA RATIO: Right: 1.0 Left: 1.0 ICA: Right: 143 Left: 130 CCA: Right: 138 Left: 135 ECA: Right: 143 Left: 111 VERTEBRAL: Right: 58 antegrade Left: 96 antegrade Elevated flow velocities and ICA/CCA ratios have been found to correlate with increased degrees of vessel stenosis, calculated as percentage of diameter relative to a normal segment of distal ICA/CCA FINDINGS: RIGHT CAROTID: No significant stenosis is visualized. Minimal calcification with shadowing in the region of the car otid bulb. The waveforms are within normal limits. LEFT CAROTID: No significant stenosis is visualized. Minimal calcification with shadowing in the region of the car otid bulb. The waveforms are within normal limits. VERTEBRAL ARTERIES: Antegrade flow is seen in both vertebral arteries. CONCLUSION: The peak systolic velocity in the internal carotid arteries is mildly elevated bilaterally, but the o ther hemodynamic parameters are within normal limits. The findings suggest less than 50% stenosis. Evangelist Cuevas MD on September 01, 2017 at 12:06 Board Certified Radiologist. This report was verified electronically.
--- NOTE | 2017-09-01 12:22 | EKG ---
Date Performed: 09/01/2017 Time Performed: 00:16:16 PTAGE: 51 years EKG: Sinus rhythm Poor R-wave progression BORDERLINE ECG PREVIOUS TRACING : 02/16/2017 18.17 DOCTOR: Alex Hart Interpretating Date/Time 09/01/2017 12:21:04
--- NOTE | 2017-09-01 12:36 | MB ---
cc: CHAU ONEAL MD DATE OF CONSULTATION 09/01/2017 REASON FOR CONSULTATION Acute kidney injury and hyperkalemia. HISTORY OF PRESENT ILLNESS This is a 51-year-old female with a past medical history of hypertension, diabetes mellitus, chronic kidney disease, anemia, gastroparesis, history of obstructive uropathy who has been following with urology and was brought to the hospital because of nausea, decreased oral intake and decreased level of consciousness. I was called to see the patient because of a very high BUN and creatinine and high potassium level. Her potassium 6.8 on admission and the creatinine was 6.6. Patient has been in the hospital multiple times with an acute kidney injury and her creatinine improved. The last time she was admitted was in February of this year when her creatinine went up to as high as 3.0 and before that in January she had a creatinine of 9.5. The recent creatinine she has was 1.4-1.6 which was in February when she was discharged. The patient also has history of neurogenic bladder and urinary retention. She just got the Goddard catheter and has now so far 300+ mL of urine in the back. The patient is not a very good historian. She keeps on sleeping. I called the mother and the room and got some history from them and some from the patient and some from the chart according to which she has been noncompliant and she has been following with Dr. Blanca. 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 She has history of gastroparesis and for the last three to four days, she has been sick and having nausea and decreased appetite. She has no history of vomiting. No history of diarrhea and has mild abdominal discomfort and for the last two or three days, she has been sleeping a lot and she has a witnessed near syncopal episode where she was passing out and hard to wakes up. She still goes to sleep while talking and starts snoring. Her sugar was low and it was replaced. There is no history of diarrhea. PAST MEDICAL HISTORY 1. Hypertension 2. Diabetes mellitus 3. Chronic kidney disease 4. History of neurogenic bladder 5. Gastroparesis 6. Chronic anemia PAST SURGICAL HISTORY 1. History of lithotripsy in the past. 2. Left foot partial amputation. 3. Laparoscopy 4. She denies any headaches. REVIEW OF SYSTEMS The review of systems is very limited since she is not answering most of the questions. She has no history of fever. She has generalized weakness and has been sleepy and tired and feeling weak. She has a decreased appetite, nausea off and on. There is no vomiting. She has mild abdominal discomfort. There is no history of diarrhea. She is not eating well and has been sleeping not for the last two or three days. There is no shortness of breath or chest pain. No palpitation. SOCIAL HISTORY Patient is single. She lives with her mother and roommate. There is no history of smoking or alcoholism. FAMILY HISTORY Noncontributory ALLERGIES She is ALLERGIC TO CODEINE AND DOXEPIN. MEDICATIONS Currently she is on: 1. Dextrose at 42 mL/hour 2. Dextrose with sodium bicarbonate 150 mL/hour 3. Calcium chloride one dose was given just now and she had 4. Sodium bicarbonate 650 mg p.o. q. 8-hour. 5. Heparin 5000 subcu q. 12-hour 6. Os-Marcos 1 gram q.12 h. 7. Famotidine 20 mg q.12 h. 8. DuoNeb nebulizer PHYSICAL EXAM On examination, the patient is sleepy. She wakes up on command, but then goes back to sleep. VITAL SIGNS: Her blood pressure is on the lower side. The lowest recorded was 74/46 and now it is 94/52, temperature is 97.5, oxygen saturation on room air is 96%. HEAD, EYES, EARS, NOSE, AND THROAT: Pupils mid, constricted. Nonicteric sclerae, conjunctivae pale. NECK: Supple. JVD is not elevated. LUNGS: The patient has bilateral decreased air entry with occasional wheezing. HEART: S1, S2 regular rhythm. ABDOMEN: Obese, soft and lax. There is mild epigastric tenderness. There is no rebound or rigidity. Bowel sounds positive. EXTREMITIES: She has no edema. Left foot has partial amputation. INVESTIGATIONS WBC count is 6.0, hemoglobin 9.6, platelet of 126, neutrophils 63.6%. Sodium 145, potassium 5.6, chloride 118, bicarb 16.8, BUN 77, creatinine 6.0, calcium 6.3, corrected calcium was 7.1. Magnesium was 2.4, AST 10, ALT 11, alkaline phosphatase 73, trop I 0.02, BNP is 152, total protein 7.3, albumin of 3.1, INR 0.9. Urinalysis pending before she has protein of 100. Her BRIA was positive in the past in 2013, but her double-stranded DNA was negative. IMAGING STUDIES The patient has a chest x-ray done which shows lung hathaway are clear. She has been refusing other studies. ASSESSMENT/PLAN 1. Acute kidney injury 2. Hyperkalemia 3. Metabolic acidosis 4. Diabetes mellitus with hypoglycemia 5. Syncopal episode 6. Hypocalcemia 7. Acute kidney injury with history of chronic kidney disease The patient has underlying chronic kidney disease and she has a history of neurogenic bladder and now she has been following with urology as an outpatient now. She has a Goddard catheter inserted and acute kidney injury is a combination of dehydration and ATN from hypotension and possibility of obstructive uropathy also. I will get an ultrasound of the kidney. I agree with continuing IV fluids. Since she has history of BRIA positive, I will check the anti-DNA and complements again. Creatinine started improving and potassium is also getting better. Avoid any nephrotoxins. Thank you for the consultation. I will follow the patient while she is in the hospital. MD MICHELLE Maloney/SANDY /11:45 AM /12:14 PM
--- NOTE | 2017-09-01 14:10 | PD.PSY.CON ---
Provisional Diagnosis Admission Date Sep 01, 2017 at 04:09 Herman I. Psychological factors affecting medical illness. History of Present Illness Service Psychiatry Consult Requested By Reason for Consult Decision-making capacity assessment Primary Care Physician No Primary Care Physician HPI Patient is a 51-year-old woman, domiciled her mother, with psychiatric history of ischemia, he denies psychiatric hospitalizations, she denies previous suicidal attempts, with long-standing type 2 diabetes, history of noncompliance, history of chronic kidney disease, hypertension who was brought to the emergency department for a witnessed the near-syncopal episode. Patient was admitted to the hospitalist service for severe dehydration and hypotension hyperkalemia and acute on chronic kidney disease. Patient has a history of syncopal episodes in the past but most of the time signs out AGAINST MEDICAL ADVICE. Critical care medicine was consulted today for persistent hypotension and encephalopathy. Patient was consulted to psychiatry because she has been persistently refusing medication, and oppositional. She has a well -documented history of irritability recalcitrant behaviors related to cooperation with treatment team. Patient has been seen by psychiatry previously for the same issue. On evaluation today patient is oppositional, she is refusing to talk to me, just answering some questions selectively. Patient says that the reason she is in the hospital is because my potassium is low, but she is not able to list her medical diagnoses, and does not express an understanding or appreciation of them. She is oriented 3. She knows that the president of [facility] is Jeniffer. Patient refused to answer more questions. She asked me to call her mother for more information: [phone]. Griselda Roa and Alice Sotelo, Friend: they were both in speaker. They say patient is developmentally delay and dont have good judgment to take care of her medical situation. He says that the patient would not understand the seriousness of her medical issues and will ask to leave the hospital without understanding what is going on. The mother stated the patient has the mentality of a 5 years old person, she has never being diagnosed officially with any psychiatric illness. Review of Systems Except as stated in HPI: all other systems reviewed are Neg Past Family Social History Coded Allergies: doxepin (Unverified Allergy, Severe, HIVES, 07/11/17) codeine (Unverified Adverse Reaction, Severe, NAUSEA/VOMITING, 07/11/17) *MDRO Multi-Drug Resistant Organism (Unverified Adverse Reaction, Unknown , 05/02/17) MRSA (foot) - 06/29/11, 08/04/11 MRSA PCR Screen POSITIVE 02/17/17 Active Scripts Ferrous Sulfate (Iron) 325 Mg Capsule.er, 1 CAP PO DAILY, #30 CAP 2 Refills Prov:Elisa Linares MD 06/08/17 Cholecalciferol (Vitamin D3) 50,000 Unit Cap, 93820 UNITS PO Q7D for Nutritional Supplement, #16 CAP 0 Refills Prov:Elisa Linares MD 06/08/17 Warfarin (Coumadin) 5 Mg Tab, 5 MG PO DAILY@16 for dvt, #30 TAB 0 Refills Prov:Elisa Linares MD 04/21/17 Bethanechol (Bethanechol) 25 Mg Tab, 25 MG PO Q8HR for Urinary Symptom Managemen , #90 TAB 3 Refills Prov:Geovani Blanca DO 04/05/17 Gabapentin (Neurontin) 100 Mg Cap, 100 MG PO BID for neuropathy, #60 CAP 1 Refill Prov:Elisa Linares MD 03/30/17 Omeprazole (Omeprazole) 40 Mg Cap, 40 MG PO DAILY for gastritis, #30 CAP 0 Refills Prov:Vee Werner MD 03/16/17 Quetiapine (Quetiapine) 25 Mg Tab, 25 MG PO HS for depression, #60 TAB Prov:Vee Werner MD 03/16/17 Nystatin Topical (Nystatin Topical) 100,000 unit/gm Cream, 1 APPLIC TOPICAL Q12HR for Rash, #1 TUBE Prov:Vee Werner MD 03/15/17 Calcitriol (Rocaltrol) 0.25 Mcg Cap, 0.5 MCG PO DAILY for Electrolyte Replacement, #60 CAP Prov:Vee Werner MD 03/14/17 Reported Medications Lisinopril (Lisinopril) 2.5 Mg Tab, 2.5 MG PO DAILY, #30 TAB 0 Refills 03/30/17 Current Medications Medications (Trade) Dose Ordered Sig/Jaylen Route Start Time Stop Time Status Last Admin (NS Flush) 2 ml UNSCH PRN IV FLUSH 09/01/17 03:45 (NS Flush) 2 ml BID IV FLUSH 09/01/17 09:00 09/01/17 09:11 (Narcan Inj) 0.4 mg UNSCH PRN IV PUSH 09/01/17 03:45 (D50w (Vial) Inj) 50 ml UNSCH PRN IV PUSH 09/01/17 05:00 09/01/17 10:38 (Glucagon Inj) 1 mg UNSCH PRN OTHER 09/01/17 05:00 Sodium Bicarbonate 100 meq/Dextrose 1,100 ml @ 150 mls/hr Q7H20M IV 09/01/17 05:00 09/01/17 05:20 (Sodium Bicarbonate) 650 mg Q8HR PO 09/01/17 06:00 (Oscal) 1,000 mg Q12HR PO 09/01/17 09:00 Dextrose 1,000 ml @ 42 mls/hr [id number] IV 09/01/17 10:45 09/01/17 10:52 (Heparin Inj) 5,000 units Q12HR SQ 09/01/17 21:00 (Duoneb Neb) 1 ampule Q4HR NEB PRN NEB 09/01/17 12:00 (Pepcid Inj) 20 mg Q12HR IV PUSH 09/01/17 21:00 Family Psych History No family psychiatric history Social History This was born and raised in [place], she lives with her mother and her friend in an apartment. Unemployed, on SSI, single. Patient's Strengths (min. 2) Family support Physical Exam Vital Signs Vital Signs Date Time Temp Pulse Resp B/P (MAP) Pulse Ox O2 Delivery O2 Flow Rate FiO2 09/01/17 12:00 97.6 74 18 131/60 (83) 100 09/01/17 07:00 Room Air Lab Results Test 09/01/17 01:10 09/01/17 06:30 09/01/17 09:05 09/01/17 10:34 White Blood Count 6.0 TH/MM3 Red Blood Count 3.44 MIL/MM3 Hemoglobin 9.6 GM/DL Hematocrit 30.1 % Mean Corpuscular Volume 87.5 FL Mean Corpuscular Hemoglobin 28.0 PG Mean Corpuscular Hemoglobin Concent 32.0 % Red Cell Distribution Width 15.6 % Platelet Count 126 TH/MM3 Mean Platelet Volume 9.9 FL Neutrophils (%) (Auto) 63.6 % Lymphocytes (%) (Auto) 22.7 % Monocytes (%) (Auto) 8.6 % Eosinophils (%) (Auto) 3.9 % Basophils (%) (Auto) 1.2 % Neutrophils # (Auto) 3.8 TH/MM3 Lymphocytes # (Auto) 1.4 TH/MM3 Monocytes # (Auto) 0.5 TH/MM3 Eosinophils # (Auto) 0.2 TH/MM3 Basophils # (Auto) 0.1 TH/MM3 CBC Comment DIFF FINAL Differential Comment Prothrombin Time 10.3 SEC Prothromb Time International Ratio 0.9 RATIO Activated Partial Thromboplast Time 26.4 SEC Blood Urea Nitrogen 81 MG/DL 78 MG/DL 77 MG/DL Creatinine 6.61 MG/DL 6.45 MG/DL 6.03 MG/DL Random Glucose 89 MG/DL 93 MG/DL 72 MG/DL Total Protein 7.3 GM/DL 6.7 GM/DL 6.6 GM/DL Albumin 3.1 GM/DL Calcium Level 6.6 MG/DL 6.9 MG/DL 6.3 MG/DL Magnesium Level 2.4 MG/DL Alkaline Phosphatase 73 U/L Aspartate Amino Transf (AST/SGOT) 10 U/L Alanine Aminotransferase (ALT/SGPT) 11 U/L Total Bilirubin 0.2 MG/DL Sodium Level 135 MEQ/L 141 MEQ/L 145 MEQ/L Potassium Level 6.8 MEQ/L 5.3 MEQ/L 5.6 MEQ/L Chloride Level 111 MEQ/L 113 MEQ/L 118 MEQ/L Carbon Dioxide Level 14.5 MEQ/L 15.8 MEQ/L 16.8 MEQ/L Anion Gap 10 MEQ/L 12 MEQ/L 10 MEQ/L Estimat Glomerular Filtration Rate 7 ML/MIN 7 ML/MIN 7 ML/MIN Protein Corrected Calcium 6.6 MG/DL 7.1 MG/DL 6.5 MG/DL Total Creatine Kinase 163 U/L Creatine Kinase MB 2.1 NG/ML Troponin I LESS THAN 0.02 NG/ML B-Type Natriuretic Peptide 152 PG/ML Nasal Screen MRSA (PCR) MRSA NOT DETECTED Blood Gas Puncture Site RT RADIAL Blood Gas Patient Temperature 98.6 Blood Gas HCO3 12 mmol/L Blood Gas Base Excess -14.7 mmol/L Blood Gas Oxygen Saturation 97 % Arterial Blood pH 7.17 Arterial Blood Partial Pressure CO2 34 mmHg Arterial Blood Partial Pressure O2 129 mmHg Arterial Blood Oxygen Content 11.7 Vol % Arterial Blood Carboxyhemoglobin 0.9 % Arterial Blood Methemoglobin 1.0 % Blood Gas Hemoglobin 8.5 G/DL Blood Gas Inspired Oxygen 21 % Test 09/01/17 12:17 Lactic Acid Level 0.9 mmol/L Mental Status Examination Appearance: Appropriate Consciousness: Alert Orientation: x4 Motor Activity: Normal gait Speech: Hesitant, Slow Language: Adequate Fund of Knowledge: Adequate Attention and Concentration: Adequate Memory: Unremarkable Mood: Oppositional, Irritable Thought Process & Associations: Intact Thought Content: Thought blocking Hallucination Type: None Delusion Type: None Suicidal Ideation: No Suicidal Plan: No Suicidal Intention: No Homicidal Ideation: No Homicidal Plan: No Homicidal Intention: No Insight: Poor Assessment & Plan Problem List: (1) Psychological factors affecting medical condition ICD Codes: F54 - Psychological and behavioral factors associated with disorders or diseases classified elsewhere Assessment & Plan: On psychiatric evaluation today patient is oppositional, resistant, recalcitrant to cooperate with evaluation. Patient is selectively responsive. Patient says that she wants to be discharged, she doesn't want to take medications, that the reason she is in the hospital is because her potassium is low. Patient sees to be unable to verbalize a rational choice, unable to elaborate about a good understanding and appreciation of her underlying medical illnesses and the reason of her hospitalization. I have spoken with her mother and her best friend, whom she lived with, and they both have referred of the patient have a developmental delay, not officially diagnosed, but they both agree that the patient is unable to take rational decisions her medical condition. Based my evaluation today the patient does not have decision-making capacity to refuse medications or to leave AMA. Communicate with her mother, , since she is HCP, to work with medical decisions. Consult appreciated. Assessment & Plan Estimated LOS: Carlos Mac MD Sep 01, 2017 14:10
--- NOTE | 2017-09-01 15:07 | RADRPT ---
EXAM DATE/TIME: 09/01/2017 13:06 [facility] COMPARISON: No previous studies available for comparison. EXTERNAL COMPARISON : [facility], US ARM, RIGHT VENOUS DOPPLER, April 21, 2017 INDICATIONS : Right arm swelling. H/O of Right arm DVT. MEDICAL HISTORY : Osteoarthritis. Renal calculi. Osteoporosis. Thyroid disease. Neuropathy. Head trauma. Syncope. Migra ronald. HTN. Asthma. Gastroparesis. GERD. Renal disease and failure. UTI. Arthritis. DVT. Gout. Diabete s. Depression. Anxiety. MRSA. Anticoagulant therapy, Coumadin. SURGICAL HISTORY : Tonsillectomy. Cholecystectomy. Removal of stone from bowel. Lithotripsy. ENCOUNTER: [facility] ACUITY: 1 day PAIN SCORE: Non-responsive LOCATION: Right arm. FINDINGS: There is spontaneous flow documented in the brachial, basilic, cephalic, axillary, and subclavian vei ns. The vessels are compressible and augmentation response is documented. No filling defects are se en. The flow is phasic with respiration. Direction of flow in the jugular vein is caudal. CONCLUSION: Normal examination. Morales Ziegler MD on September 01, 2017 at 15:05 Board Certified Radiologist. This report was verified electronically.
--- NOTE | 2017-09-01 15:35 | RADRPT ---
EXAM DATE/TIME: 09/01/2017 13:05 [facility] COMPARISON: CT ABDOMEN & PELVIS W/O CONTRAST, February 16, 2017, 17:08. US KIDNEY/RENAL/BLADDER, January 27, 2017, 12 :08. INDICATIONS : Increased BUN/Creatinine. MEDICAL HISTORY : Osteoarthritis. Renal calculi. Osteoporosis. Thyroid disease. Neuropathy. Head trauma. Syncope. Migra ronald. HTN. Asthma. Gastroparesis. GERD. Renal disease and failure. UTI. Arthritis. DVT. Gout. Diabete s. Depression. Anxiety. MRSA. Anticoagulant therapy, Coumadin. SURGICAL HISTORY : Tonsillectomy. Cholecystectomy. Removal of stone from bowel. Lithotripsy. ENCOUNTER: Subsequent ACUITY: 1 day PAIN SCORE: Nonresponsive. LOCATION: Bilateral flank MEASUREMENTS: RIGHT KIDNEY: 10.2 x 4.3 x 4.9 cm LEFT KIDNEY: 12.5 x 5.3 x 6.1 cm FINDINGS: RIGHT KIDNEY: Diffusely increased cortical echogenicity with lobulated contour. Redemonstration of a dominant 1.4 c m calculus in the inferior pole of the right kidney with adjacent smaller calculus. No interval hydro nephrosis. LEFT KIDNEY: Diffusely increased cortical echogenicity with lobulated contour. No significant hydronephrosis or re nal calculi. BLADDER: Decompressed secondary to Goddard catheter. CONCLUSION: 1. Stable sonographic appearance the kidneys with diffusely increased cortical echogenicity consisten t with medical renal disease. 2. Stable right renal calculi with the largest measuring 1.4 cm in the inferior pole. No evidence for obstructive uropathy. Suhail Montano MD on September 01, 2017 at 15:30 Board Certified Radiologist. This report was verified electronically.
[2017-09-01 16:40] LABS: BICARBONATE 17.6 MEQ/L (21.0-32.0); POTASSIUM 5.1 MEQ/L (3.5-5.1)
[2017-09-01 17:02] LABS: CALCIUM-PROTEIN CORRECTED 7.1 MG/DL (8.5-10.1)
[2017-09-01] MEDS ORDERED: CALCIUM GLUCONATE INJ 1 GM in SODIUM CHLORIDE 0.9% INJ 100 ML IV ONE (17:30)
--- NOTE | 2017-09-01 20:06 | PD.CONS ---
History of Present Illness Service Podiatry Consult Requested By Reason for Consult R hallux ulcer Primary Care Physician No Primary Care Physician Diagnoses: History of Present Illness Patient states she thinks she has had an ulcer R plantar medial foot for at least 3 mos. She is not certain. She does have history of TMA L foot that began as an ulceration similar to the R foot. She says it hurts a little when she walks. Past Family Social History Allergies: Coded Allergies: doxepin (Unverified Allergy, Severe, HIVES, 07/11/17) codeine (Unverified Adverse Reaction, Severe, NAUSEA/VOMITING, 07/11/17) *MDRO Multi-Drug Resistant Organism (Unverified Adverse Reaction, Unknown , 05/02/17) MRSA (foot) - 06/29/11, 08/04/11 MRSA PCR Screen POSITIVE 02/17/17 Past Medical History Hypertension Diabetes Mellitus Stage 3 kidney disease Gastroparesis Anemia Past Surgical History Lithotripsy Active Ordered Medications Current Medications Medications (Trade) Dose Ordered Sig/Jaylen Route Start Time Stop Time Status Last Admin (NS Flush) 2 ml UNSCH PRN IV FLUSH 09/01/17 03:45 (NS Flush) 2 ml BID IV FLUSH 09/01/17 09:00 09/01/17 09:11 (Narcan Inj) 0.4 mg UNSCH PRN IV PUSH 09/01/17 03:45 (D50w (Vial) Inj) 50 ml UNSCH PRN IV PUSH 09/01/17 05:00 09/01/17 10:38 (Glucagon Inj) 1 mg UNSCH PRN OTHER 09/01/17 05:00 Sodium Bicarbonate 100 meq/Dextrose 1,100 ml @ 150 mls/hr Q7H20M IV 09/01/17 05:00 09/01/17 16:34 (Sodium Bicarbonate) 650 mg Q8HR PO 09/01/17 06:00 (Oscal) 1,000 mg Q12HR PO 09/01/17 09:00 Dextrose 1,000 ml @ 42 mls/hr [id number] IV 09/01/17 10:45 09/01/17 10:52 (Heparin Inj) 5,000 units Q12HR SQ 09/01/17 21:00 (Duoneb Neb) 1 ampule Q4HR NEB PRN NEB 09/01/17 12:00 (Pepcid Inj) 20 mg Q12HR IV PUSH 09/01/17 21:00 (Pneumovax-23 Inj) 25 mcg ONCE ONCE IM 09/02/17 10:00 09/02/17 10:01 (Flu (Quadrivalent) Vaccine Inj) 0.5 ml ONCE ONCE IM 09/02/17 10:00 09/02/17 10:01 Family History Cancer Social History Lives with roommate and mother (age 77 y/o) Requires a walker for ambulation Tobacco: never smoked Alcohol: denies Illicit Drugs: denies Physical Exam Vital Signs Vital Signs Date Time Temp Pulse Resp B/P (MAP) Pulse Ox O2 Delivery O2 Flow Rate FiO2 09/01/17 18:00 71 09/01/17 16:00 97.7 61 17 109/59 (76) 100 09/01/17 16:00 66 09/01/17 14:00 74 09/01/17 12:00 97.6 74 18 131/60 (83) 100 09/01/17 12:00 74 09/01/17 10:00 89 09/01/17 08:00 97.5 68 26 94/52 (66) 98 09/01/17 08:00 65 09/01/17 07:44 97.5 68 26 94/52 (66) 98 09/01/17 07:00 96 Room Air 09/01/17 06:27 09/01/17 06:15 98.7 75 25 119/56 (77) 93 09/01/17 05:21 75 15 114/53 (73) 100 Room Air 09/01/17 04:54 75 15 101/57 (72) 100 Room Air 09/01/17 03:48 68 12 86/47 (60) 100 Room Air 09/01/17 03:22 68 13 110/53 (72) 100 Room Air 09/01/17 01:24 67 16 113/55 (74) 98 Room Air 08/31/17 23:59 98 Room Air 08/31/17 23:56 79 24 74/46 (55) Physical Exam R foot with small ulceration with hyperkeratotic rim sub 1st metatarsal head. Mild serous drainage. No localized erythema or edema noted at this time. Minimal tenderness with exam. Palpable pulses. Sensation uncertain Laboratory Laboratory Tests Test 09/01/17 01:10 09/01/17 06:30 106/17 09:05 09/01/17 10:34 White Blood Count 6.0 Red Blood Count 3.44 Hemoglobin 9.6 Hematocrit 30.1 Mean Corpuscular Volume 87.5 Mean Corpuscular Hemoglobin 28.0 Mean Corpuscular Hemoglobin Concent 32.0 Red Cell Distribution Width 15.6 Platelet Count 126 Mean Platelet Volume 9.9 Neutrophils (%) (Auto) 63.6 Lymphocytes (%) (Auto) 22.7 Monocytes (%) (Auto) 8.6 Eosinophils (%) (Auto) 3.9 Basophils (%) (Auto) 1.2 Neutrophils # (Auto) 3.8 Lymphocytes # (Auto) 1.4 Monocytes # (Auto) 0.5 Eosinophils # (Auto) 0.2 Basophils # (Auto) 0.1 CBC Comment DIFF FINAL Differential Comment Prothrombin Time 10.3 Prothromb Time International Ratio 0.9 Activated Partial Thromboplast Time 26.4 Blood Urea Nitrogen 81 78 77 Creatinine 6.61 6.45 6.03 Random Glucose 89 93 72 Total Protein 7.3 6.7 6.6 Albumin 3.1 Calcium Level 6.6 6.9 6.3 Magnesium Level 2.4 Alkaline Phosphatase 73 Aspartate Amino Transf (AST/SGOT) 10 Alanine Aminotransferase (ALT/SGPT) 11 Total Bilirubin 0.2 Sodium Level 135 141 145 Potassium Level 6.8 5.3 5.6 Chloride Level 111 113 118 Carbon Dioxide Level 14.5 15.8 16.8 Anion Gap 10 12 10 Estimat Glomerular Filtration Rate 7 7 7 Protein Corrected Calcium 6.6 7.1 6.5 Total Creatine Kinase 163 Creatine Kinase MB 2.1 Troponin I LESS THAN 0.02 B-Type Natriuretic Peptide 152 Nasal Screen MRSA (PCR) MRSA NOT DETECTED Blood Gas Puncture Site RT RADIAL Blood Gas Patient Temperature 98.6 Blood Gas HCO3 12 Blood Gas Base Excess -14.7 Blood Gas Oxygen Saturation 97 Arterial Blood pH 7.17 Arterial Blood Partial Pressure CO2 34 Arterial Blood Partial Pressure O2 129 Arterial Blood Oxygen Content 11.7 Arterial Blood Carboxyhemoglobin 0.9 Arterial Blood Methemoglobin 1.0 Blood Gas Hemoglobin 8.5 Blood Gas Inspired Oxygen 21 Test 09/01/17 12:17 09/01/17 15:35 Lactic Acid Level 0.9 Blood Urea Nitrogen 75 Creatinine 5.89 Random Glucose 102 Total Protein 6.2 Calcium Level 6.7 Sodium Level 145 Potassium Level 5.1 Chloride Level 117 Carbon Dioxide Level 17.6 Anion Gap 10 Estimat Glomerular Filtration Rate 8 Protein Corrected Calcium 7.1 Result Diagram: 09/01/17 0110 09/01/17 1535 Imaging Last 72 hours Impressions Chest X-Ray 09/01/17 0002 Signed Impressions: Service Date/Time: Friday, September 01, 2017 00:05 - CONCLUSION: No acute disease. Evangelist Ramirez Jr., MD Upper Extremity Ultrasound 09/01/17 0000 Signed Impressions: Service Date/Time: Friday, September 01, 2017 13:06 - CONCLUSION: Normal examination. Morales Ziegler MD Renal Ultrasound 09/01/17 0000 Signed Impressions: Service Date/Time: Friday, September 01, 2017 13:05 - CONCLUSION: 1. Stable sonographic appearance the kidneys with diffusely increased cortical echogenicity consistent with medical renal disease. 2. Stable right renal calculi with the largest measuring 1.4 cm in the inferior pole. No evidence for obstructive uropathy. Suhail Montano MD Carotid Artery Ultrasound 09/01/17 0000 Signed Impressions: Service Date/Time: Friday, September 01, 2017 08:35 - CONCLUSION: The peak systolic velocity in the internal carotid arteries is mildly elevated bilaterally, but the other hemodynamic parameters are within normal limits. The findings suggest less than 50%% stenosis. Evangelist Cuevas MD Assessment and Plan Assessment and Plan Ulcer R hallux, stable Will debride bedside and order XR R foot to evaluate further If no sign of osteomyelitis, will recommend local wound care with offloading. Saul Jimenes DPM Sep 01, 2017 20:06
[2017-09-01 20:47] LABS: BICARBONATE 15.8 MEQ/L (21.0-32.0)
[2017-09-01 21:06] LABS: CALCIUM-PROTEIN CORRECTED 7.8 MG/DL (8.5-10.1)
[2017-09-01] MEDS: FAMOTIDINE 20 MG/2 ML VIAL IV PUSH SCH (21:16)
[2017-09-01] MEDS: HEPARIN SODIUM - SQ 10,000 UNITS/ML VIAL SQ SCH (21:17)
[2017-09-02] VITALS (12 sets, daily range): BP systolic 99–141; BP diastolic 50–67; PULSE 65–84; RESP 14–27; TEMP 97.8–98.8; O2SAT 96–100
[2017-09-02 01:22] LABS: BICARBONATE 17.6 MEQ/L (21.0-32.0); MAGNESIUM 1.9 MG/DL (1.5-2.5); POTASSIUM 4.8 MEQ/L (3.5-5.1)
[2017-09-02 01:59] LABS: CALCIUM-PROTEIN CORRECTED 7.3 MG/DL (8.5-10.1)
[2017-09-02] MEDS ORDERED: CALCIUM GLUCONATE INJ 1 GM in SODIUM CHLORIDE 0.9% INJ 100 ML IV ONE (03:00)
[2017-09-02] MEDS: SODIUM BICARBONATE 8.4% INJ 100 MEQ in DEXTROSE 5% IN WATE 1000ML INJ 1,000 ML IV SCH ×6 (05:10→14:29)
[2017-09-02 05:21] LABS: AUTOMATED NEUTROPHIL # 2.5 TH/MM3 (1.8-7.7); EOSINOPHIL # 0.2 TH/MM3 (0-0.4); EOSINOPHIL % 4.4 % (0.0-4.0); HEMATOCRIT 27.3 % (35.0-46.0); HEMO FLAGS DIFF FINAL; LYMPH % 27.2 % (9.0-44.0); LYMPHOCYTE # 1.1 TH/MM3 (1.0-4.8); MEAN CELL VOLUME 87.4 FL (80.0-100.0); MEAN CORPUSCULAR HEMOGLOBIN 28.3 PG (27.0-34.0); MEAN CORPUSCULAR HGB CONC 32.4 % (32.0-36.0); MONO % 8.2 % (0.0-8.0); NEUT % 59.2 % (16.0-70.0); PLATELET COUNT 105 TH/MM3 (150-450); RED BLOOD COUNT 3.12 MIL/MM3 (4.00-5.30); RED CELL DISTRIBUTION WIDTH 15.6 % (11.6-17.2); WHITE BLOOD COUNT 4.2 TH/MM3 (4.0-11.0)
[2017-09-02 05:31] LABS: BICARBONATE 18.9 MEQ/L (21.0-32.0); POTASSIUM 4.8 MEQ/L (3.5-5.1)
[2017-09-02 05:36] LABS: TOTAL BILIRUBIN ADULT 0.2 MG/DL (0.2-1.0)
[2017-09-02 05:40] LABS: CALCIUM-PROTEIN CORRECTED 7.2 MG/DL (8.5-10.1)
[2017-09-02] MEDS: SODIUM BICARBONATE 650 MG TAB PO SCH ×3 (06:44→20:34)
[2017-09-02] MEDS: FAMOTIDINE 20 MG/2 ML VIAL IV PUSH SCH (08:38)
[2017-09-02] MEDS: HEPARIN SODIUM - SQ 10,000 UNITS/ML VIAL SQ SCH ×2 (08:38→20:34)
[2017-09-02] MEDS: SODIUM CHLORIDE 0.9% FLUSH 10 ML FLUSH IV FLUSH SCH ×2 (08:38→20:33)
[2017-09-02] MEDS: CALCIUM CARBONATE 1.25 GM (CA 500 MG) TAB PO SCH ×2 (08:38→20:34)
--- NOTE | 2017-09-02 08:45 | RADRPT ---
EXAM DATE/TIME: 09/02/2017 08:03 [facility] COMPARISON: CHEST SINGLE AP, September 01, 2017, 0:05. INDICATIONS : Right foot pain. MEDICAL HISTORY : Gastroesophageal reflux disease. Renal calculi. Gastroparesis. Deep vein thrombosis. Vision loss. Jarett ropathy. Head trauma. Syncope. Migraines. Hypertension. Asthma. Pneumonia. Arthritis. Osteoporosis. G out. Diabetes. Depression. Anxiety. Thyroid disease. Anemia. MRSA. SURGICAL HISTORY : None. ENCOUNTER: Initial ACUITY: 1 day PAIN SCORE: 2/10 LOCATION: Right Foot FINDINGS: There are degenerative changes of the DIP joint of the second digit. The osseous structures are other marie intact with no evidence of acute fracture. There is diffuse soft tissue swelling. CONCLUSION: 1. Arthritic changes in the DIP joint of the second digit. 2. Soft tissue swelling. 3. No acute fracture identified. Kevin Brooke MD on September 02, 2017 at 8:43 Board Certified Radiologist. This report was verified electronically.
[2017-09-02] MEDS ORDERED: INFLUENZA VIRUS VACCINE (QUADRIVALENT) 0.5 ML SYR IM ONE (10:00)
[2017-09-02] MEDS ORDERED: PNEUMOCOCCAL POLYVALENT INJ 25 MCG/0.5 ML SYR IM ONE (10:00)
--- NOTE | 2017-09-02 13:20 | HHI.PR ---
Subjective Remarks Pt states she feels ok, denies any CP/SOB/N/V/lightheadedness or dizziness. Discussed w RN, pt much more alert, tolerated a diet. Discussed w hotel housekeeper, from his standpoint pt can be transferred out for ICU Objective Vitals Vital Signs Date Time Temp Pulse Resp B/P (MAP) Pulse Ox O2 Delivery O2 Flow Rate FiO2 09/02/17 12:00 98.8 77 27 103/55 (71) 100 09/02/17 12:00 77 09/02/17 10:00 84 09/02/17 09:33 99 21 09/02/17 08:00 70 09/02/17 08:00 98.0 70 14 134/63 (86) 98 09/02/17 07:00 98 Nasal Cannula 2.00 09/02/17 06:00 65 09/02/17 04:00 97.8 66 22 99/50 (66) 99 09/02/17 04:00 66 09/02/17 02:00 67 09/02/17 01:00 100 Nasal Cannula 3.00 09/02/17 00:00 97.9 75 14 104/63 (77) 96 09/02/17 00:00 75 09/01/17 22:00 68 09/01/17 20:00 100 Nasal Cannula 2.00 09/01/17 20:00 97.8 92 16 121/66 (84) 100 09/01/17 20:00 92 09/01/17 19:58 78 09/01/17 18:00 71 09/01/17 16:00 97.7 61 17 109/59 (76) 100 09/01/17 16:00 66 09/01/17 14:00 74 I/O 09/01/17 09/01/17 09/01/17 09/02/17 09/02/17 09/02/17 07:00 15:00 23:00 07:00 15:00 23:00 Intake Total 1895 ml 2268 ml Output Total 750 ml 950 ml Balance 1145 ml 1318 ml Intake IV Total 1895 ml 2268 ml Output Urine Total 750 ml 950 ml # Bowel Movements 2 1 Result Diagram: 09/02/17 0423 09/02/17 0423 Imaging Last Impressions Foot X-Ray 09/02/17 0000 Signed Impressions: Service Date/Time: Saturday, September 02, 2017 08:03 - CONCLUSION: 1. Arthritic changes in the DIP joint of the second digit. 2. Soft tissue swelling. 3. No acute fracture identified. Kevin Brooke MD Chest X-Ray 09/01/171 Signed Impressions: Service Date/Time: Friday, September 01, 2017 00:05 - CONCLUSION: No acute disease. Evangelist Ramirez Jr., MD Upper Extremity Ultrasound 09/01/17 Signed Impressions: Service Date/Time: Friday, September 01, 2017 13:06 - CONCLUSION: Normal examination. Morales Ziegler MD Renal Ultrasound 09/01/17 Signed Impressions: Service Date/Time: Friday, September 01, 2017 13:05 - CONCLUSION: 1. Stable sonographic appearance the kidneys with diffusely increased cortical echogenicity consistent with medical renal disease. 2. Stable right renal calculi with the largest measuring 1.4 cm in the inferior pole. No evidence for obstructive uropathy. Suhail Montano MD Carotid Artery Ultrasound 09/01/17 Signed Impressions: Service Date/Time: Friday, September 01, 2017 08:35 - CONCLUSION: The peak systolic velocity in the internal carotid arteries is mildly elevated bilaterally, but the other hemodynamic parameters are within normal limits. The findings suggest less than 50%% stenosis. Evangelist Cuevas MD Objective Remarks GENERAL: This is a morbidly obese female patient, in no apparent distress. ENT: Airway patent. NECK: Trachea midline. CARDIOVASCULAR: Regular rate and rhythm without murmurs, RESPIRATORY: Clear to auscultation. Breath sounds equal bilaterally. No wheezes GASTROINTESTINAL: Abdomen soft, non-tender, nondistended. No guarding. MUSCULOSKELETAL: Left metatarsal amputation. No calf tenderness. 2+ bilateral lower extremity edema. NEUROLOGICAL: Awake and alert. Motor and sensory grossly within normal limits. Normal speech. A/P Problem List: (1) Syncope and collapse ICD Code: R55 - Syncope and collapse Status: Acute (2) Hyperkalemia ICD Code: E87.5 - Hyperkalemia Status: Acute (3) Acute on chronic renal failure ICD Code: N17.9 - Acute kidney failure, unspecified; N18.9 - Chronic kidney disease, unspecified (4) Metabolic acidosis ICD Code: E87.2 - Acidosis (5) Hypocalcemia ICD Code: E83.51 - Hypocalcemia Status: Acute Assessment and Plan NEURO: - Minimize sedation - Encephalopathy most likely metabolic Syncope cardiogenic because of electrolyte imbalance versus neurogenic - Echocardiogram to evaluate cardiac structure and function not yet available. - Carotid u/s shows <50% stenosis. RESP: - Nasal cannula oxygen - DuoNeb every 6 hours when necessary, IS while awake if patient cooperates CV: - Normal saline IV fluids 3l bolus - IV fluid D5 with bicarbonate infusion at 150 ML per hour, no longer on D10. Tolerating a diet. - Strict intake output, not on vasopressors. Cardiac enzymes negative GI: - on 1999 ADA diet and tolerating it well. Pt tells me that she is diet controlled and not on any insulin or diabetic meds - IV famotidine : - Monitor renal function closely. Place Goddard catheter. - Acute on chronic kidney failure most likely from severe dehydration - Continue aggressive hydration as above - Hyperkalemia: s/p Kayexalate and IV bicarbonate and IV calcium. Potassium is trending down - renal u/s consistent w renal disease, no obstructive uropathy. - Nephrology following. appreciate input. ID: - Monitor for infection. No antibiotics at this time HEME: - Monitor CBC, CMP, coags - Patient had right upper extremity DVT on 03/04/17 - Was placed on Coumadin but INR 0.9 probably noncompliant, repeat right upper extremity ultrasound neg ENDO: - Hypoglycemia resolved. s/p D10. Monitor BS closely. Ulcer R hallux, stable podiatry evaluated pt, debridement at bedside foot; x-ray neg didn't show signs of osteo. Recommendation is for local wound care with offloading. PSYCH: Pt was evaluated by psych and per their records: the patient does not have decision-making capacity to refuse medications or to leave AMA. Communicate with her mother, , since she is HCP, to work with medical decisions. PROPH: - Bilateral lower extremity SCDs. Heparin 5000 units sq q12 Discharge Planning transfer out of ICU Jacey Tanner MD Sep 02, 2017 13:20
--- NOTE | 2017-09-02 13:21 | HHI.NPPN ---
Subjective History of Present Illness 51-year-old female with a past medical history of hypertension, diabetes mellitus, chronic kidney disease, anemia, gastroparesis, history of obstructive uropathy who has been following with urology and was brought to the hospital because of nausea, decreased oral intake and decreased level of consciousness. I was called to see the patient because of a very high BUN and creatinine and high potassium level. Additional Remarks Patient is alert, has been confused, and not in distress. Review of Systems General Constitutional: Fatigue Cardiovascular Cardiac: Edema, ROSADO Objective Data Data Vital Signs Date Time Temp Pulse Resp B/P (MAP) Pulse Ox O2 Delivery O2 Flow Rate FiO2 09/02/17 12:00 98.8 77 27 103/55 (71) 100 09/02/17 12:00 77 09/02/17 10:00 84 09/02/17 09:33 99 21 09/02/17 08:00 70 09/02/17 08:00 98.0 70 14 134/63 (86) 98 09/02/17 07:00 98 Nasal Cannula 2.00 09/02/17 06:00 65 09/02/17 04:00 97.8 66 22 99/50 (66) 99 09/02/17 04:00 66 09/02/17 02:00 67 09/02/17 01:00 100 Nasal Cannula 3.00 09/02/17 00:00 97.9 75 14 104/63 (77) 96 09/02/17 00:00 75 09/01/17 22:00 68 09/01/17 20:00 100 Nasal Cannula 2.00 09/01/17 20:00 97.8 92 16 121/66 (84) 100 09/01/17 20:00 92 09/01/17 19:58 78 09/01/17 18:00 71 09/01/17 16:00 97.7 61 17 109/59 (76) 100 09/01/17 16:00 66 09/01/17 14:00 74 -: 09/02/17 0423 09/02/173 Physical Exam General Appearance: No Acute Distress, Comfortable Eyes Eye Exam: Pupils Equal Throat Throat Exam: Oral Mucosa [place] & Moist Neck Neck Exam: Neck Supple Pulmonary Resp Exam: No Distress, Rhonchi, Decreased Bases, Diminished Breath Sounds Cardiology CV Exam: Regular, Normal Sinus Rhythm Gastrointestinal/Abdomen GI Exam: Soft, Non-Tender, Bowel Sounds Present Extremeties Extremities Exam: Moderate Edema, Pitting Edema Neurologic Neuro Exam: Alert, Awake Psychiatric Psych Exam: Appropriate Responses Assessment/Plan Assessment Summary: SHELLEY/Acute Renal Failure, Dehydration, CKD Stage III Electrolyte Assessment: Metabolic Acidosis Problem List: (1) Diabetes mellitus ICD Codes: E11.9 - Type 2 diabetes mellitus without complications Status: Chronic (2) Hypertension ICD Codes: I10 - Essential (primary) hypertension Status: Acute (3) Dehydration ICD Codes: E86.0 - Dehydration Status: Acute (4) Neurogenic bladder ICD Codes: N31.9 - Neurogenic bladder Status: Acute (5) 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 Now has Goddard's catheter, and urine out put is adequate. BP is now better. Creatinine is 5.6, slightly better. Continue IVF, encourage oral intake. Avoid Nephrotoxins. Renal U.S noted. Calcium is low, check Po4 level. Eloina Villa MD Sep 02, 2017 13:21
--- NOTE | 2017-09-02 14:19 | HHI.NPPN ---
Subjective History of Present Illness 51-year-old female with a past medical history of hypertension, diabetes mellitus, chronic kidney disease, anemia, gastroparesis, history of obstructive uropathy who has been following with urology and was brought to the hospital because of nausea, decreased oral intake and decreased level of consciousness. I was called to see the patient because of a very high BUN and creatinine and high potassium level. Additional Remarks Patient is alert, not in distress, started eating some. Review of Systems General Constitutional: Fatigue Cardiovascular Cardiac: Edema, ROSADO Objective Data Data Vital Signs Date Time Temp Pulse Resp B/P (MAP) Pulse Ox O2 Delivery O2 Flow Rate FiO2 09/02/17 12:00 98.8 77 27 103/55 (71) 100 09/02/17 12:00 77 09/02/17 10:00 84 09/02/17 09:33 99 21 09/02/17 08:00 70 09/02/17 08:00 98.0 70 14 134/63 (86) 98 09/02/17 07:00 98 Nasal Cannula 2.00 09/02/17 06:00 65 09/02/17 04:00 97.8 66 22 99/50 (66) 99 09/02/17 04:00 66 09/02/17 02:00 67 09/02/17 01:00 100 Nasal Cannula 3.00 09/02/17 00:00 97.9 75 14 104/63 (77) 96 09/02/17 00:00 75 09/01/17 22:00 68 09/01/17 20:00 100 Nasal Cannula 2.00 09/01/17 20:00 97.8 92 16 121/66 (84) 100 09/01/17 20:00 92 09/01/17 19:58 78 09/01/17 18:00 71 09/01/17 16:00 97.7 61 17 109/59 (76) 100 09/01/17 16:00 66 -: 09/02/17 0423 09/02/173 Physical Exam General Appearance: No Acute Distress, Comfortable Eyes Eye Exam: Pupils Equal Throat Throat Exam: Oral Mucosa [place] & Moist Neck Neck Exam: Neck Supple Pulmonary Resp Exam: No Distress, Rhonchi, Decreased Bases, Diminished Breath Sounds Cardiology CV Exam: Regular, Normal Sinus Rhythm Gastrointestinal/Abdomen GI Exam: Soft, Non-Tender, Bowel Sounds Present Extremeties Extremities Exam: Moderate Edema, Pitting Edema Neurologic Neuro Exam: Alert, Awake Psychiatric Psych Exam: Appropriate Responses Assessment/Plan Assessment Summary: SHELLEY/Acute Renal Failure, Dehydration, CKD Stage III Electrolyte Assessment: Metabolic Acidosis Problem List: (1) Diabetes mellitus ICD Codes: E11.9 - Type 2 diabetes mellitus without complications Status: Chronic (2) Hypertension ICD Codes: I10 - Essential (primary) hypertension Status: Acute (3) Dehydration ICD Codes: E86.0 - Dehydration Status: Acute (4) Neurogenic bladder ICD Codes: N31.9 - Neurogenic bladder Status: Acute (5) 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 Now has Goddard's catheter, and urine out put is adequate. BP is now better. Creatinine is 5.7, almost same. Decrease IVF, encourage oral intake. Avoid Nephrotoxins. Renal U.S noted. Calcium is low, Po4 level is high, add Phoslo. Avoid Nephrotoxins and follow BMP. Eloina Villa MD Sep 02, 2017 14:19
--- NOTE | 2017-09-02 17:36 | ECHRPT ---
Indication: syncope, dyspnea CONCLUSIONS Normal left ventricular size. Wall thickness is normal. The left ventricular systolic function is low normal with an estimated ejection fraction in the rang e of 50- 55%. Mitral annular calcification is present. There is estimated mild pulmonary hypertension present ( 46mmHg). BP: 94 / 52 HR: 65 Rhythm: MEASUREMENTS (Male / Female) Normal Values Technical Quality:Technically difficult study 2D ECHO LV Diastolic Diameter PLAX 5.3 cm 4.2 - 5.9 / 3.9 - 5.3 cm LV Systolic Diameter PLAX 4.0 cm IVS Diastolic Thickness 0.8 cm 0.6 - 1.0 / 0.6 - 0.9 cm LVPW Diastolic Thickness 0.7 cm 0.6 - 1.0 / 0.6 - 0.9 cm LV Relative Wall Thickness 0.3 LA Systolic Diameter LX 3.7 cm 3.0 - 4.0 / 2.7 - 3.8 cm M-MODE Aortic Root Diameter MM 2.8 cm AV Cusp Separation MM 1.9 cm DOPPLER Mitral E Point Velocity 103.0 cm/s Mitral A Point Velocity 86.4 cm/s Mitral E to A Ratio 1.2 TR Peak Velocity 322.0 cm/s TR Peak Gradient 41.5 mmHg FINDINGS LEFT VENTRICLE Normal left ventricular size. Wall thickness is normal. The left ventricular systolic function is low normal with an estimated ejection fraction in the rang e of 50- 55%. RIGHT VENTRICLE Normal right ventricular size and systolic function. LEFT ATRIUM The left atrial size is normal. RIGHT ATRIUM The right atrial size is normal. ATRIAL SEPTUM Normal atrial septal thickness without atrial level shunting by limited color doppler interrogation. AORTA The aortic root and proximal ascending aorta are normal in size on limited imaging. MITRAL VALVE Mitral annular calcification is present. AORTIC VALVE Trileaflet aortic valve. No aortic valve stenosis or regurgitation. TRICUSPID VALVE There is estimated mild pulmonary hypertension present ( 46mmHg). PULMONARY VALVE The pulmonary valve is not well visualized. VESSELS The inferior vena cava is normal in size. PERICARDIUM No pericardial effusion. Shalonda Dejesus MD, FACC (Electronically Signed) Final Date:02 September 2017 17:35
[2017-09-02] MEDS: CALCIUM ACETATE 667 MG CAP PO SCH (17:57)
--- NOTE | 2017-09-02 17:59 | PD.POD ---
Subjective Podiatric Problems R foot ulcer Past Med/Surg/Social History Past Medical History HEENT: REPORTS HX OF: Recurrent ear infections, Other HEENT history (vision loss b/l eyes) Endocrine: REPORTS HX OF: Diabetes mellitus (TYPE II) Respiratory: REPORTS HX OF: Allergies/hay fever Cardiovascular: REPORTS HX OF: Other CV history (BLOOD CLOTS RIGHT ARM ) Gastrointestinal: REPORTS HX OF: GERD Genitourinary: REPORTS HX OF: Kidney disease, Kidney failure, Kidney stones, Past UTI, Urinary incontinence Musculoskeletal: REPORTS HX OF: Gout, Osteoarthritis Cancer/Hematology: REPORTS HX OF: Anemia Infectious disease: REPORTS HX OF: MRSA Psychiatric: REPORTS HX OF: Anxiety, Depression Past Surgical History HEENT: REPORTS HX OF: Tonsillectomy Gastrointestinal: REPORTS HX OF: Other GI surgery (REMOVE A STONE FROM BOWEL ) Gynecologic: DENIES HX OF: Hysterectomy Musculoskeletal: REPORTS HX OF: Other musculoskeletal srg (right foot) Breast: DENIES HX OF: Mastectomy, bilateral, Mastectomy, left, Mastectomy, right Social History Smoking Status: Never Smoker Objective Vital Signs Vital Signs Date Time Temp Pulse Resp B/P (MAP) Pulse Ox O2 Delivery O2 Flow Rate FiO2 09/02/17 16:00 75 09/02/17 16:00 98.6 75 26 141/64 (89) 100 09/02/17 14:00 76 09/02/17 12:00 98.8 77 27 103/55 (71) 100 09/02/17 12:00 77 09/02/17 10:00 84 09/02/17 09:33 99 21 09/02/17 08:00 70 09/02/17 08:00 98.0 70 14 134/63 (86) 98 09/02/17 07:00 98 Nasal Cannula 2.00 09/02/17 06:00 65 09/02/17 04:00 97.8 66 22 99/50 (66) 99 09/02/17 04:00 66 09/02/17 02:00 67 09/02/17 01:00 100 Nasal Cannula 3.00 09/02/17 00:00 97.9 75 14 104/63 (77) 96 09/02/17 00:00 75 09/01/17 22:00 68 09/01/17 20:00 100 Nasal Cannula 2.00 09/01/17 20:00 97.8 92 16 121/66 (84) 100 09/01/17 20:00 92 09/01/17 19:58 78 09/01/17 18:00 71 Coded Allergies: doxepin (Unverified Allergy, Severe, HIVES, 07/11/17) codeine (Unverified Adverse Reaction, Severe, NAUSEA/VOMITING, 07/11/17) *MDRO Multi-Drug Resistant Organism (Unverified Adverse Reaction, Unknown , 05/02/17) MRSA (foot) - 06/29/11, 08/04/11 MRSA PCR Screen POSITIVE 02/17/17 Assessment & Plan A/P R foot ulcer Attempted bedside debridement, but patient had just been transferred to 7th floor and 3rd floor had thrown away all instruments that had been ordered for bedside debridement. Will attempt again tomorrow. Discussed with nurse on 7N to have materials bedside for me. Saul Jimenes DPM Sep 02, 2017 17:59
[2017-09-03] VITALS: BP 143/65; PULSE 83; RESP 19; TEMP 97; O2SAT 94
[2017-09-03] MEDS: SODIUM BICARBONATE 8.4% INJ 100 MEQ in DEXTROSE 5% IN WATE 1000ML INJ 1,000 ML IV SCH ×4 (01:30→12:52)
[2017-09-03] MEDS ORDERED: ACETAMINOPHEN/HYDROcodone 325 MG/5 MG TAB PO ONE (04:15)
[2017-09-03] MEDS: SODIUM BICARBONATE 650 MG TAB PO SCH ×3 (04:28→20:30)
[2017-09-03 05:26] LABS: BICARBONATE 22.5 MEQ/L (21.0-32.0); MAGNESIUM 1.7 MG/DL (1.5-2.5); POTASSIUM 4.4 MEQ/L (3.5-5.1)
[2017-09-03 05:29] LABS: AUTOMATED NEUTROPHIL # 3.7 TH/MM3 (1.8-7.7); BASOPHIL # 0.1 TH/MM3 (0-0.2); EOSINOPHIL # 0.2 TH/MM3 (0-0.4); EOSINOPHIL % 3.6 % (0.0-4.0); HEMATOCRIT 28.7 % (35.0-46.0); HEMO FLAGS DIFF FINAL; MEAN CELL VOLUME 85.7 FL (80.0-100.0); MEAN CORPUSCULAR HEMOGLOBIN 28.2 PG (27.0-34.0); MEAN CORPUSCULAR HGB CONC 32.9 % (32.0-36.0); MONO % 6.3 % (0.0-8.0); NEUT % 70.1 % (16.0-70.0); PLATELET COUNT 117 TH/MM3 (150-450); RED BLOOD COUNT 3.35 MIL/MM3 (4.00-5.30); RED CELL DISTRIBUTION WIDTH 14.7 % (11.6-17.2); WHITE BLOOD COUNT 5.2 TH/MM3 (4.0-11.0)
[2017-09-03 05:57] LABS: CALCIUM-PROTEIN CORRECTED 7.4 MG/DL (8.5-10.1)
[2017-09-03] MEDS ORDERED: CALCIUM GLUCONATE INJ 1 GM in SODIUM CHLORIDE 0.9% INJ 90 ML IV ONE (06:30)
[2017-09-03 08:00] VITALS: BP 133/65; PULSE 84; RESP 16; TEMP 97.8; O2SAT 95
[2017-09-03] MEDS: CALCIUM ACETATE 667 MG CAP PO SCH ×3 (08:11→18:04)
[2017-09-03] MEDS: CALCIUM CARBONATE 1.25 GM (CA 500 MG) TAB PO SCH ×2 (08:11→20:29)
[2017-09-03] MEDS: SODIUM CHLORIDE 0.9% FLUSH 10 ML FLUSH IV FLUSH SCH ×2 (08:12→20:28)
[2017-09-03] MEDS: HEPARIN SODIUM - SQ 10,000 UNITS/ML VIAL SQ SCH ×2 (08:12→20:30)
[2017-09-03] MEDS: FAMOTIDINE 20 MG/2 ML VIAL IV PUSH SCH ×2 (08:24→20:29)
[2017-09-03] MEDS: DEXTROSE 10% INJ 1,000 ML IV SCH (10:23)
--- NOTE | 2017-09-03 10:48 | HHI.NPPN ---
Subjective History of Present Illness 51-year-old female with a past medical history of hypertension, diabetes mellitus, chronic kidney disease, anemia, gastroparesis, history of obstructive uropathy who has been following with urology and was brought to the hospital because of nausea, decreased oral intake and decreased level of consciousness. I was called to see the patient because of a very high BUN and creatinine and high potassium level. Additional Remarks Patient is alert, eating better, no SOB, still has loose BM. Review of Systems General Constitutional: Fatigue Cardiovascular Cardiac: Edema, ROSADO Objective Data Data Vital Signs Date Time Temp Pulse Resp B/P (MAP) Pulse Ox O2 Delivery O2 Flow Rate FiO2 09/03/17 08:00 97.8 84 16 133/65 (87) 95 09/03/17 00:00 97.0 83 19 143/65 (91) 94 09/02/17 20:00 98.1 75 19 125/67 (86) 99 09/02/17 16:00 75 09/02/17 16:00 98.6 75 26 141/64 (89) 100 09/02/17 14:00 76 09/02/17 12:00 98.8 77 27 103/55 (71) 100 09/02/17 12:00 77 -: 09/03/17 0415 09/03/17 0415 Physical Exam General Appearance: No Acute Distress, Comfortable Eyes Eye Exam: Pupils Equal Throat Throat Exam: Oral Mucosa [place] & Moist Neck Neck Exam: Neck Supple Pulmonary Resp Exam: No Distress, Rhonchi, Decreased Bases, Diminished Breath Sounds Cardiology CV Exam: Regular, Normal Sinus Rhythm Gastrointestinal/Abdomen GI Exam: Soft, Non-Tender, Bowel Sounds Present Extremeties Extremities Exam: Moderate Edema, Pitting Edema Neurologic Neuro Exam: Alert, Awake Psychiatric Psych Exam: Appropriate Responses Assessment/Plan Assessment Summary: SHELLEY/Acute Renal Failure, Dehydration, CKD Stage III Electrolyte Assessment: Metabolic Acidosis Problem List: (1) Diabetes mellitus ICD Codes: E11.9 - Type 2 diabetes mellitus without complications Status: Chronic (2) Hypertension ICD Codes: I10 - Essential (primary) hypertension Status: Acute (3) Dehydration ICD Codes: E86.0 - Dehydration Status: Acute (4) Neurogenic bladder ICD Codes: N31.9 - Neurogenic bladder Status: Acute (5) 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 Now has Goddard's catheter, and urine out put is adequate. BP is now better. Decrease IVF, encourage oral intake. Avoid Nephrotoxins. Renal U.S noted. Calcium is low, Po4 level is high, on Phoslo. Also on CaCo3. Avoid Nephrotoxins and follow BMP. Creatinine is slightly better, now 5.4. Eloina Villa MD Sep 03, 2017 10:48
--- NOTE | 2017-09-03 11:53 | PD.POD ---
Subjective Podiatric Problems R foot ulcer Past Med/Surg/Social History Past Medical History HEENT: REPORTS HX OF: Recurrent ear infections, Other HEENT history (vision loss b/l eyes) Endocrine: REPORTS HX OF: Diabetes mellitus (TYPE II) Respiratory: REPORTS HX OF: Allergies/hay fever Cardiovascular: REPORTS HX OF: Other CV history (BLOOD CLOTS RIGHT ARM ) Gastrointestinal: REPORTS HX OF: GERD Genitourinary: REPORTS HX OF: Kidney disease, Kidney failure, Kidney stones, Past UTI, Urinary incontinence Musculoskeletal: REPORTS HX OF: Gout, Osteoarthritis Cancer/Hematology: REPORTS HX OF: Anemia Infectious disease: REPORTS HX OF: MRSA Psychiatric: REPORTS HX OF: Anxiety, Depression Past Surgical History HEENT: REPORTS HX OF: Tonsillectomy Gastrointestinal: REPORTS HX OF: Other GI surgery (REMOVE A STONE FROM BOWEL ) Gynecologic: DENIES HX OF: Hysterectomy Musculoskeletal: REPORTS HX OF: Other musculoskeletal srg (right foot) Breast: DENIES HX OF: Mastectomy, bilateral, Mastectomy, left, Mastectomy, right Social History Smoking Status: Never Smoker Objective Vital Signs Vital Signs Date Time Temp Pulse Resp B/P (MAP) Pulse Ox O2 Delivery O2 Flow Rate FiO2 09/03/17 08:00 97.8 84 16 133/65 (87) 95 09/03/17 00:00 97.0 83 19 143/65 (91) 94 09/02/17 20:00 98.1 75 19 125/67 (86) 99 09/02/17 16:00 75 09/02/17 16:00 98.6 75 26 141/64 (89) 100 09/02/17 14:00 76 09/02/17 12:00 98.8 77 27 103/55 (71) 100 09/02/17 12:00 77 Coded Allergies: doxepin (Unverified Allergy, Severe, HIVES, 07/11/17) codeine (Unverified Adverse Reaction, Severe, NAUSEA/VOMITING, 07/11/17) *MDRO Multi-Drug Resistant Organism (Unverified Adverse Reaction, Unknown , 05/02/17) MRSA (foot) - 06/29/11, 08/04/11 MRSA PCR Screen POSITIVE 02/17/17 Other Results Last 72 hours Impressions Foot X-Ray 09/02/17 0000 Signed Impressions: Service Date/Time: Saturday, September 02, 2017 08:03 - CONCLUSION: 1. Arthritic changes in the DIP joint of the second digit. 2. Soft tissue swelling. 3. No acute fracture identified. Kevin Brooke MD Chest X-Ray 09/01/171 Signed Impressions: Service Date/Time: Friday, September 01, 2017 00:05 - CONCLUSION: No acute disease. Evangelist Ramirez Jr., MD Upper Extremity Ultrasound 09/01/17 Signed Impressions: Service Date/Time: Friday, September 01, 2017 13:06 - CONCLUSION: Normal examination. Morales Ziegler MD Renal Ultrasound 09/01/17 Signed Impressions: Service Date/Time: Friday, September 01, 2017 13:05 - CONCLUSION: 1. Stable sonographic appearance the kidneys with diffusely increased cortical echogenicity consistent with medical renal disease. 2. Stable right renal calculi with the largest measuring 1.4 cm in the inferior pole. No evidence for obstructive uropathy. Suhail Montano MD Carotid Artery Ultrasound 09/01/17 Signed Impressions: Service Date/Time: Friday, September 01, 2017 08:35 - CONCLUSION: The peak systolic velocity in the internal carotid arteries is mildly elevated bilaterally, but the other hemodynamic parameters are within normal limits. The findings suggest less than 50%% stenosis. Evangelist Cuevas MD Exam-Podiatry Remarks R plantar 1st met head area with ulceration 0.2cm diameter, 0.2cm depth with hyperkeratotic rim. Mild tenderness to palpation per patient. No erythema, no edema, no purulence. No drainage present to culture at this time. Assessment & Plan A/P R foot ulcer Performed excisional debridement of R plantar foot ulcer with #15 blade of all hyperkeratotic and fibrotic material down to healthy bleeding subcutaneous tissue, followed by DSD. Dressing changes ordered per nursing daily. Continue local wound care. No clinical s/s of infection, so no further imaging ordered. Podiatry signing off. Reconsult if new issues arise Saul iJmenes DPM Sep 03, 2017 11:53
[2017-09-03 12:00] VITALS: BP 144/71; PULSE 88; RESP 17; TEMP 96.5; O2SAT 95
[2017-09-03] MEDS ORDERED: MUPIROCIN 2% OINT 22 GM TUBE TOPICAL ONE (12:00)
--- NOTE | 2017-09-03 15:03 | HHI.PR ---
Subjective Remarks Sitting on side of bed, eating lunch, no complaints at this time. States she does get loose stools. discussed w RN, stool is formed. Denies any CP/lightheadedness/SOB/n/v Objective Vitals Vital Signs Date Time Temp Pulse Resp B/P (MAP) Pulse Ox O2 Delivery O2 Flow Rate FiO2 09/03/17 12:00 96.5 88 17 144/71 (95) 95 09/03/17 08:20 95 2.00 09/03/17 08:00 97.8 84 16 133/65 (87) 95 09/03/17 00:00 97.0 83 19 143/65 (91) 94 09/02/17 20:00 98.1 75 19 125/67 (86) 99 09/02/17 16:00 75 09/02/17 16:00 98.6 75 26 141/64 (89) 100 I/O 09/02/17 09/02/17 09/02/17 09/03/17 09/03/17 09/03/17 07:00 15:00 23:00 07:00 15:00 23:00 Intake Total 2268 ml 1444 ml 976 ml Output Total 950 ml Balance 1318 ml 1444 ml 976 ml Intake Oral 120 ml 240 ml IV Total 2268 ml 1324 ml 736 ml Output Urine Total 950 ml # Voids 3 # Bowel Movements 1 Result Diagram: 09/03/17 0415 09/03/17 0415 Imaging Last Impressions Foot X-Ray 09/02/17 Signed Impressions: Service Date/Time: Saturday, September 02, 2017 08:03 - CONCLUSION: 1. Arthritic changes in the DIP joint of the second digit. 2. Soft tissue swelling. 3. No acute fracture identified. Kevin Brooke MD Chest X-Ray 09/01/17 0002 Signed Impressions: Service Date/Time: Friday, September 01, 2017 00:05 - CONCLUSION: No acute disease. Evangelist Ramirez Jr., MD Upper Extremity Ultrasound 09/01/17 Signed Impressions: Service Date/Time: Friday, September 01, 2017 13:06 - CONCLUSION: Normal examination. Morales Ziegler MD Renal Ultrasound 09/01/17 Signed Impressions: Service Date/Time: Friday, September 01, 2017 13:05 - CONCLUSION: 1. Stable sonographic appearance the kidneys with diffusely increased cortical echogenicity consistent with medical renal disease. 2. Stable right renal calculi with the largest measuring 1.4 cm in the inferior pole. No evidence for obstructive uropathy. Suhail Montano MD Carotid Artery Ultrasound 09/01/17 0000 Signed Impressions: Service Date/Time: Friday, September 01, 2017 08:35 - CONCLUSION: The peak systolic velocity in the internal carotid arteries is mildly elevated bilaterally, but the other hemodynamic parameters are within normal limits. The findings suggest less than 50%% stenosis. Evangelist Cuevas MD Objective Remarks GENERAL: This is a morbidly obese female patient, in no apparent distress. ENT: Airway patent. NECK: Trachea midline. CARDIOVASCULAR: Regular rate and rhythm without murmurs, RESPIRATORY: Clear to auscultation. Breath sounds equal bilaterally. No wheezes GASTROINTESTINAL: Abdomen soft, non-tender, nondistended. No guarding. MUSCULOSKELETAL: Left metatarsal amputation; dressing over right foot, d/c/i. No calf tenderness. 2+ bilateral lower extremity edema. NEUROLOGICAL: Awake and alert. Motor and sensory grossly within normal limits. Normal speech. A/P Problem List: (1) Syncope and collapse ICD Code: R55 - Syncope and collapse Status: Acute (2) Hyperkalemia ICD Code: E87.5 - Hyperkalemia Status: Acute (3) Acute on chronic renal failure ICD Code: N17.9 - Acute kidney failure, unspecified; N18.9 - Chronic kidney disease, unspecified (4) Metabolic acidosis ICD Code: E87.2 - Acidosis (5) Hypocalcemia ICD Code: E83.51 - Hypocalcemia Status: Acute Assessment and Plan NEURO: - Minimize sedation - Encephalopathy most likely metabolic - Echocardiogram to evaluate cardiac structure and function not yet available. - Carotid u/s shows <50% stenosis. RESP: - Nasal cannula oxygen - DuoNeb every 6 hours when necessary, IS while awake if patient cooperates CV: - Normal saline IV fluids 3l bolus - will d/c IV fluid D5 with bicarbonate infusion. Tolerating a diet. - Strict intake output, not on vasopressors. Cardiac enzymes negative GI: - on 1999 ADA diet and tolerating it well. Pt tells me that she is diet controlled and not on any insulin or diabetic meds - IV famotidine : - Monitor renal function closely. Place Goddard catheter. - Acute on chronic kidney failure most likely from severe dehydration - Continue aggressive hydration as above - Hyperkalemia: s/p Kayexalate and IV bicarbonate and IV calcium. on calcium acetate and calcium carbonate po. Potassium back to normal. Continue to supplement calcium as still low. - renal u/s consistent w renal disease, no obstructive uropathy. - Nephrology following. appreciate input. ID: - Monitor for infection. No antibiotics at this time HEME: - Monitor CBC, CMP, coags - Patient had right upper extremity DVT on 03/04/17 - Was placed on Coumadin but INR 0.9 probably noncompliant, repeat right upper extremity ultrasound was neg ENDO: - Hypoglycemia resolved. s/p D10. Monitor BS closely. Ulcer R hallux, stable podiatry evaluated pt, s/p debridement at bedside foot 09/03/17; x-ray neg didn't show signs of osteo. Recommendation is for local wound care with offloading. PSYCH: Pt was evaluated by psych and per their records: the patient does not have decision-making capacity to refuse medications or to leave AMA. Communicate with her mother, , since she is HCP, to work with medical decisions. PROPH: - Bilateral lower extremity SCDs. Heparin 5000 units sq q12 Discharge Planning continue to monitor kidney function. awaiting final recs from nephrology Jacey Tanner MD Sep 03, 2017 15:03
[2017-09-03 16:00] VITALS: BP 160/67; PULSE 77; RESP 16; TEMP 97.1; O2SAT 98
[2017-09-03 20:00] VITALS: BP 149/73; PULSE 80; RESP 18; TEMP 97.9; O2SAT 98
[2017-09-04] VITALS: BP 171/77; PULSE 80; RESP 18; TEMP 98.3; O2SAT 94
[2017-09-04] MEDS: SODIUM BICARBONATE 650 MG TAB PO SCH ×3 (05:17→21:26)
[2017-09-04 07:59] VITALS: BP 167/74; PULSE 80; RESP 20; TEMP 97.6; O2SAT 96
[2017-09-04 08:15] LABS: BICARBONATE 23.6 MEQ/L (21.0-32.0); POTASSIUM 4.4 MEQ/L (3.5-5.1)
[2017-09-04] MEDS: CALCIUM CARBONATE 1.25 GM (CA 500 MG) TAB PO SCH ×2 (09:27→21:26)
[2017-09-04] MEDS: FAMOTIDINE 20 MG/2 ML VIAL IV PUSH SCH ×2 (09:27→21:26)
[2017-09-04] MEDS: CALCIUM ACETATE 667 MG CAP PO SCH ×3 (09:27→18:00)
[2017-09-04] MEDS: SODIUM CHLORIDE 0.9% FLUSH 10 ML FLUSH IV FLUSH SCH ×2 (09:28→21:25)
[2017-09-04] MEDS: HEPARIN SODIUM - SQ 10,000 UNITS/ML VIAL SQ SCH ×2 (09:28→21:26)
--- NOTE | 2017-09-04 09:47 | HHI.NPPN ---
Subjective History of Present Illness 51-year-old female with a past medical history of hypertension, diabetes mellitus, chronic kidney disease, anemia, gastroparesis, history of obstructive uropathy who has been following with urology and was brought to the hospital because of nausea, decreased oral intake and decreased level of consciousness. I was called to see the patient because of a very high BUN and creatinine and high potassium level. Additional Remarks Patient is alert, has loose BM 2 yesterday, no vomiting, no SOB. Review of Systems General Constitutional: Fatigue Cardiovascular Cardiac: Edema, ROSADO Objective Data Data Vital Signs Date Time Temp Pulse Resp B/P (MAP) Pulse Ox O2 Delivery O2 Flow Rate FiO2 09/04/17 07:59 97.6 80 20 167/74 (105) 96 09/04/17 00:00 98.3 80 18 171/77 (108) 94 09/03/17 20:00 97.9 80 18 149/73 (98) 98 09/03/17 16:00 97.1 77 16 160/67 (98) 98 09/03/17 12:00 96.5 88 17 144/71 (95) 95 -: 09/03/17 0415 09/04/17 0643 Physical Exam General Appearance: No Acute Distress, Comfortable Eyes Eye Exam: Pupils Equal Throat Throat Exam: Oral Mucosa [place] & Moist Neck Neck Exam: Neck Supple Pulmonary Resp Exam: No Distress, Rhonchi, Decreased Bases, Diminished Breath Sounds Cardiology CV Exam: Regular, Normal Sinus Rhythm Gastrointestinal/Abdomen GI Exam: Soft, Non-Tender, Bowel Sounds Present Extremeties Extremities Exam: Moderate Edema, Pitting Edema Neurologic Neuro Exam: Alert, Awake Psychiatric Psych Exam: Appropriate Responses Assessment/Plan Assessment Summary: SHELLEY/Acute Renal Failure, Dehydration, CKD Stage III Electrolyte Assessment: Metabolic Acidosis Problem List: (1) Diabetes mellitus ICD Codes: E11.9 - Type 2 diabetes mellitus without complications Status: Chronic (2) Hypertension ICD Codes: I10 - Essential (primary) hypertension Status: Acute (3) Dehydration ICD Codes: E86.0 - Dehydration Status: Acute (4) Neurogenic bladder ICD Codes: N31.9 - Neurogenic bladder Status: Acute (5) 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 BP is now better. Encourage oral intake. Avoid Nephrotoxins. Renal U.S noted. Calcium is improving, on Phoslo. Also on CaCo3. Avoid Nephrotoxins and follow BMP. Creatinine is almost same. Check Bladder scan. Eloina Villa MD Sep 04, 2017 09:47
--- NOTE | 2017-09-04 11:28 | HHI.PR ---
Subjective Remarks Pt asleep, wakes up briefly answers some questions then goes back to bed denies any pain, nausea or vomiting. Objective Vitals Vital Signs Date Time Temp Pulse Resp B/P (MAP) Pulse Ox O2 Delivery O2 Flow Rate FiO2 09/04/17 07:59 97.6 80 20 167/74 (105) 96 09/04/17 00:00 98.3 80 18 171/77 (108) 94 09/03/17 20:00 97.9 80 18 149/73 (98) 98 09/03/17 16:00 97.1 77 16 160/67 (98) 98 09/03/17 12:00 96.5 88 17 144/71 (95) 95 I/O 09/03/17 09/03/17 09/03/17 09/04/17 09/04/17 09/04/17 07:00 15:00 23:00 07:00 15:00 23:00 Intake Total 976 ml 750 ml Balance 976 ml 750 ml Intake Oral 240 ml 750 ml IV Total 736 ml # Voids 3 5 4 # Bowel Movements 5 Result Diagram: 09/03/17 0415 09/04/17 0643 Imaging Last Impressions Foot X-Ray 09/02/17 Signed Impressions: Service Date/Time: Saturday, September 02, 2017 08:03 - CONCLUSION: 1. Arthritic changes in the DIP joint of the second digit. 2. Soft tissue swelling. 3. No acute fracture identified. Kevin Brooke MD Chest X-Ray 09/01/171 Signed Impressions: Service Date/Time: Friday, September 01, 2017 00:05 - CONCLUSION: No acute disease. Evangelist Ramirez Jr., MD Upper Extremity Ultrasound 09/01/17 Signed Impressions: Service Date/Time: Friday, September 01, 2017 13:06 - CONCLUSION: Normal examination. Morales Ziegler MD Renal Ultrasound 09/01/17 Signed Impressions: Service Date/Time: Friday, September 01, 2017 13:05 - CONCLUSION: 1. Stable sonographic appearance the kidneys with diffusely increased cortical echogenicity consistent with medical renal disease. 2. Stable right renal calculi with the largest measuring 1.4 cm in the inferior pole. No evidence for obstructive uropathy. Suhail Montano MD Carotid Artery Ultrasound 10/6/17 0000 Signed Impressions: Service Date/Time: Friday, September 01, 2017 08:35 - CONCLUSION: The peak systolic velocity in the internal carotid arteries is mildly elevated bilaterally, but the other hemodynamic parameters are within normal limits. The findings suggest less than 50%% stenosis. Evangelist Cuevas MD Objective Remarks GENERAL: This is a morbidly obese female patient, asleep but briefly wakes up ENT: Airway patent. NECK: Trachea midline. CARDIOVASCULAR: Regular rate and rhythm without murmurs, RESPIRATORY: Clear to auscultation. Breath sounds equal bilaterally. No wheezes GASTROINTESTINAL: Abdomen soft, non-tender, nondistended. No guarding. MUSCULOSKELETAL: Left metatarsal amputation; dressing over right foot, d/c/i. No calf tenderness. 2+ bilateral lower extremity edema. NEUROLOGICAL: Awake and alert. Motor and sensory grossly within normal limits. A/P Problem List: (1) Syncope and collapse ICD Code: R55 - Syncope and collapse Status: Acute (2) Hyperkalemia ICD Code: E87.5 - Hyperkalemia Status: Acute (3) Acute on chronic renal failure ICD Code: N17.9 - Acute kidney failure, unspecified; N18.9 - Chronic kidney disease, unspecified (4) Metabolic acidosis ICD Code: E87.2 - Acidosis (5) Hypocalcemia ICD Code: E83.51 - Hypocalcemia Status: Acute Assessment and Plan NEURO: - Minimize sedation - Encephalopathy most likely metabolic - Echocardiogram EF 50-55% w mild pulm HTN. - Carotid u/s shows <50% stenosis. RESP: - Nasal cannula oxygen - DuoNeb every 6 hours when necessary, IS while awake if patient cooperates CV: - Normal saline IV fluids 3l bolus - will d/c IV fluid D5 with bicarbonate infusion. Tolerating a diet. - Strict intake output, not on vasopressors. Cardiac enzymes negative GI: - on 1999 ADA diet and tolerating it well. Pt tells me that she is diet controlled and not on any insulin or diabetic meds - IV famotidine : - Monitor renal function closely. Place Goddard catheter. - Acute on chronic kidney failure most likely from severe dehydration - Continue aggressive hydration as above - Hyperkalemia: s/p Kayexalate and IV bicarbonate and IV calcium. on calcium acetate and calcium carbonate po. Potassium back to normal. Continue to supplement calcium as still low. - renal u/s consistent w renal disease, no obstructive uropathy. - Nephrology following. appreciate input. awaiting bladder scan. continue to monitor Cr levels ID: - Monitor for infection. No antibiotics at this time HEME: - Monitor CBC, CMP, coags - Patient had right upper extremity DVT on 03/04/17 - Was placed on Coumadin but INR 0.9 probably noncompliant, repeat right upper extremity ultrasound was neg ENDO: - Hypoglycemia resolved. s/p D10. Monitor BS closely. Ulcer R hallux, stable podiatry evaluated pt, s/p debridement at bedside foot 09/03/17; x-ray neg didn't show signs of osteo. Recommendation is for local wound care with offloading. PSYCH: Pt was evaluated by psych and per their records: the patient does not have decision-making capacity to refuse medications or to leave AMA. Communicate with her mother, , since she is HCP, to work with medical decisions. PROPH: - Bilateral lower extremity SCDs. Heparin 5000 units sq q12 Discharge Planning continue to monitor kidney function. awaiting final recs from nephrology Jacey Tanner MD Sep 04, 2017 11:28
[2017-09-04 12:00] VITALS: BP 122/74; PULSE 83; RESP 18; TEMP 98; O2SAT 97
[2017-09-04 16:00] VITALS: BP 163/77; PULSE 82; RESP 18; TEMP 97.8; O2SAT 97
[2017-09-04 18:44] LABS: BACTERIA, URINE MANY /hpf; BLOOD, URINE SMALL (NEG); COMMENT (UR) CULTURE INDICATED; CULTURE IF INDICATED CULTURE INDICATED; GLUCOSE,URINE NEG (NEG); KETONE, URINE NEG (NEG); NITRITE,URINE NEG (NEG); SQUAMOUS EPITHELIAL CELL URINE <1 /hpf (0-5); URINE COLOR LIGHT-YELLOW (YELLW/STRAW)
[2017-09-04 20:00] VITALS: BP 157/75; PULSE 81; RESP 22; TEMP 97.2; O2SAT 99
[2017-09-04] MEDS: GABAPENTIN 100 MG CAP PO SCH (21:26)
[2017-09-05] VITALS: BP 165/78; PULSE 88; RESP 22; TEMP 97.1; O2SAT 98
[2017-09-05] MEDS: SODIUM BICARBONATE 650 MG TAB PO SCH ×3 (04:58→21:20)
[2017-09-05 08:00] VITALS: BP 153/77; PULSE 96; RESP 20; TEMP 97.7; O2SAT 92
[2017-09-05] MEDS: CALCIUM ACETATE 667 MG CAP PO SCH ×3 (10:25→16:41)
[2017-09-05] MEDS: CALCIUM CARBONATE 1.25 GM (CA 500 MG) TAB PO SCH ×2 (10:25→21:20)
[2017-09-05] MEDS: FERROUS SULFATE 325 MG (65 MG ELEMENTAL IRON) TAB PO SCH (10:25)
[2017-09-05] MEDS: GABAPENTIN 100 MG CAP PO SCH ×2 (10:26→22:02)
[2017-09-05] MEDS: SODIUM CHLORIDE 0.9% FLUSH 10 ML FLUSH IV FLUSH SCH ×2 (10:26→21:21)
[2017-09-05] MEDS: FAMOTIDINE 20 MG/2 ML VIAL IV PUSH SCH ×2 (10:26→22:02)
[2017-09-05] MEDS: HEPARIN SODIUM - SQ 10,000 UNITS/ML VIAL SQ SCH ×2 (10:26→21:20)
--- NOTE | 2017-09-05 11:14 | HHI.FF ---
Face to Face Verification Diagnosis: (1) Right foot ulcer Home Health Nursing Order: Wound care and dressing changes (R foot dressing change daily per nursing : bactroban, 2x2, tape. Wear surgical shoe R foot when ambulating. Ok to remove when at rest) I have seen patient Tejas Marie on 09/05/17. My clinical findings support the need for the requested home health care services because: Pt requires wound care Limited ability to care for self I certify that my clinical findings support that this patient is homebound because: Pt requires wound care Unsteady gait/balance Jacey Tanner MD Sep 05, 2017 11:13
--- NOTE | 2017-09-05 11:46 | HHI.PR ---
Subjective Remarks feels well, no complaints, no lightheadedness or dizziness, wants to go home Objective Vitals Vital Signs Date Time Temp Pulse Resp B/P (MAP) Pulse Ox O2 Delivery O2 Flow Rate FiO2 09/05/17 08:00 97.7 96 20 153/77 (102) 92 09/05/17 00:00 97.1 88 22 165/78 (107) 98 09/04/17 20:00 97.2 81 22 157/75 (102) 99 09/04/17 16:00 97.8 82 18 163/77 (105) 97 09/04/17 12:00 98.0 83 18 122/74 (90) 97 I/O 09/04/17 09/04/17 09/04/17 09/05/17 09/05/17 09/05/17 07:00 15:00 23:00 07:00 15:00 23:00 Intake Total 620 ml 480 ml Output Total 800 ml Balance 620 ml -320 ml Intake Oral 620 ml 480 ml Output Urine Total 800 ml # Voids 4 3 1 # Bowel Movements 1 1 Result Diagram: 09/03/17 0415 09/04/17 0643 Imaging Last Impressions Foot X-Ray 09/02/17 Signed Impressions: Service Date/Time: Saturday, September 02, 2017 08:03 - CONCLUSION: 1. Arthritic changes in the DIP joint of the second digit. 2. Soft tissue swelling. 3. No acute fracture identified. Kevin Brooke MD Chest X-Ray 09/01/17 0002 Signed Impressions: Service Date/Time: Friday, September 01, 2017 00:05 - CONCLUSION: No acute disease. Evangelist Ramirez Jr., MD Upper Extremity Ultrasound 09/01/17 Signed Impressions: Service Date/Time: Friday, September 01, 2017 13:06 - CONCLUSION: Normal examination. Morales Ziegler MD Renal Ultrasound 09/01/17 Signed Impressions: Service Date/Time: Friday, September 01, 2017 13:05 - CONCLUSION: 1. Stable sonographic appearance the kidneys with diffusely increased cortical echogenicity consistent with medical renal disease. 2. Stable right renal calculi with the largest measuring 1.4 cm in the inferior pole. No evidence for obstructive uropathy. Suhail Montano MD Carotid Artery Ultrasound 10/6/17 0000 Signed Impressions: Service Date/Time: Friday, September 01, 2017 08:35 - CONCLUSION: The peak systolic velocity in the internal carotid arteries is mildly elevated bilaterally, but the other hemodynamic parameters are within normal limits. The findings suggest less than 50%% stenosis. Evangelist Cuevas MD Objective Remarks GENERAL: This is a morbidly obese female patient, asleep but briefly wakes up ENT: Airway patent. NECK: Trachea midline. CARDIOVASCULAR: Regular rate and rhythm without murmurs, RESPIRATORY: Clear to auscultation. Breath sounds equal bilaterally. No wheezes GASTROINTESTINAL: Abdomen soft, non-tender, nondistended. No guarding. MUSCULOSKELETAL: Left metatarsal amputation; dressing over right foot, d/c/i. No calf tenderness. 2+ bilateral lower extremity edema. NEUROLOGICAL: Awake and alert. Motor and sensory grossly within normal limits. A/P Problem List: (1) Syncope and collapse ICD Code: R55 - Syncope and collapse Status: Acute (2) Hyperkalemia ICD Code: E87.5 - Hyperkalemia Status: Acute (3) Acute on chronic renal failure ICD Code: N17.9 - Acute kidney failure, unspecified; N18.9 - Chronic kidney disease, unspecified (4) Metabolic acidosis ICD Code: E87.2 - Acidosis (5) Hypocalcemia ICD Code: E83.51 - Hypocalcemia Status: Acute Assessment and Plan NEURO: - Minimize sedation - Encephalopathy most likely metabolic however pt seems to be alert now. Denies any new episodes of lightheadedness or dizziness. - Echocardiogram EF 50-55% w mild pulm HTN. - Carotid u/s shows <50% stenosis. RESP: - Nasal cannula oxygen - DuoNeb every 6 hours when necessary, IS while awake if patient cooperates CV: - Normal saline IV fluids 3l bolus - will d/c IV fluid D5 with bicarbonate infusion. Tolerating a diet. - Strict intake output, not on vasopressors. Cardiac enzymes negative - Pt presented w hypotension, now her BP's are uncontrolled. Pt on norvasc 10mg po daily I have added metoprolol 50mg po daily. I have also added clonidine and hydralazine prn for BP>160/90. Pt's Cr still elevated. GI: - on 1999 ADA diet and tolerating it well. Pt tells me that she is diet controlled and not on any insulin or diabetic meds - IV famotidine : - Monitor renal function closely. Place Goddard catheter. - Acute on chronic kidney failure most likely from severe dehydration - Continue aggressive hydration as above - Hyperkalemia: s/p Kayexalate and IV bicarbonate and IV calcium. on calcium acetate and calcium carbonate po. Potassium back to normal. Continue to supplement calcium as still low. - renal u/s consistent w renal disease, no obstructive uropathy. - Nephrology following. appreciate input. continue to monitor Cr levels. Nephrology did discuss w pt the possibility for the need for dialysis if kidney function worsens however pt refuses. Nephrology will need to discuss this w mom as pt doesn't have the capacity to make medical decision per psych. Dr. Villa notified. ID: - Monitor for infection. No antibiotics at this time HEME: - Monitor CBC, CMP, coags - Patient had right upper extremity DVT on 03/04/17 - Was placed on Coumadin but INR 0.9 probably noncompliant, repeat right upper extremity ultrasound was neg ENDO: - Hypoglycemia resolved. s/p D10. Monitor BS closely. Ulcer R hallux, stable podiatry evaluated pt, s/p debridement at bedside foot 09/03/17; x-ray neg didn't show signs of osteo. Recommendation is for local wound care with offloading. wound care face to face in place. PSYCH: Pt was evaluated by psych and per their records: the patient does not have decision-making capacity to refuse medications or to leave AMA. Communicate with her mother, , since she is HCP, to work with medical decisions. PROPH: - Bilateral lower extremity SCDs. Heparin 5000 units sq q12 Discharge Planning continue to monitor kidney function as Cr still elevated. awaiting final recs from nephrology. Jacey Tanner MD Sep 05, 2017 11:46
--- NOTE | 2017-09-05 11:57 | HHI.NPPN ---
Subjective History of Present Illness 51-year-old female with a past medical history of hypertension, diabetes mellitus, chronic kidney disease, anemia, gastroparesis, history of obstructive uropathy who has been following with urology and was brought to the hospital because of nausea, decreased oral intake and decreased level of consciousness. I was called to see the patient because of a very high BUN and creatinine and high potassium level. Additional Remarks Patient is alert, no SOB, eating well, want to go home. Review of Systems General Constitutional: Fatigue Cardiovascular Cardiac: Edema, ROSADO Objective Data Data Vital Signs Date Time Temp Pulse Resp B/P (MAP) Pulse Ox O2 Delivery O2 Flow Rate FiO2 09/05/17 08:00 97.7 96 20 153/77 (102) 92 09/05/17 00:00 97.1 88 22 165/78 (107) 98 09/04/17 20:00 97.2 81 22 157/75 (102) 99 09/04/17 16:00 97.8 82 18 163/77 (105) 97 09/04/17 12:00 98.0 83 18 122/74 (90) 97 -: 09/03/17 0415 09/04/17 0643 Microbiology 09/04/17 Urine Culture, Received Pending Physical Exam General Appearance: No Acute Distress, Comfortable Eyes Eye Exam: Pupils Equal Throat Throat Exam: Oral Mucosa [place] & Moist Neck Neck Exam: Neck Supple Pulmonary Resp Exam: No Distress, Rhonchi, Decreased Bases, Diminished Breath Sounds Cardiology CV Exam: Regular, Normal Sinus Rhythm Gastrointestinal/Abdomen GI Exam: Soft, Non-Tender, Bowel Sounds Present Extremeties Extremities Exam: Moderate Edema, Pitting Edema Neurologic Neuro Exam: Alert, Awake Psychiatric Psych Exam: Appropriate Responses Assessment/Plan Assessment Summary: SHELLEY/Acute Renal Failure, Dehydration, CKD Stage III Electrolyte Assessment: Metabolic Acidosis Problem List: (1) Diabetes mellitus ICD Codes: E11.9 - Type 2 diabetes mellitus without complications Status: Chronic (2) Hypertension ICD Codes: I10 - Essential (primary) hypertension Status: Acute (3) Dehydration ICD Codes: E86.0 - Dehydration Status: Acute (4) Neurogenic bladder ICD Codes: N31.9 - Neurogenic bladder Status: Acute (5) 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 BP is now better. Encourage oral intake. Avoid Nephrotoxins. Renal U.S noted. Calcium is improving, on Phoslo. Also on CaCo3. Avoid Nephrotoxins and follow BMP. No new BMP, she has been non oliguric. She does not want Dialysis, if needed. Now want to go home. I told her the risk, even life threatening, she still want to go. Check BMP now. Eloina Villa MD Sep 05, 2017 11:57
[2017-09-05 12:00] VITALS: BP 186/87; PULSE 92; RESP 18; TEMP 97.9; O2SAT 95
[2017-09-05 16:00] VITALS: BP 149/78; PULSE 89; RESP 18; TEMP 96.6; O2SAT 98
[2017-09-05 16:42] LABS: POTASSIUM 4.3 MEQ/L (3.5-5.1)
[2017-09-05] MEDS ORDERED: cloNIDine HCL 0.1 MG TAB PO PRN (17:00)
[2017-09-05] MEDS ORDERED: hydrALAZINE HCL 10 MG TAB PO PRN (17:00)
[2017-09-05] MEDS: METOPROLOL TARTRATE 50 MG TAB PO SCH (18:46)
[2017-09-05 20:00] VITALS: BP 156/82; PULSE 72; RESP 20; TEMP 97.6; O2SAT 97
[2017-09-06] VITALS: BP 162/70; PULSE 73; RESP 20; TEMP 97.8; O2SAT 98
[2017-09-06] MEDS: SODIUM BICARBONATE 650 MG TAB PO SCH ×3 (04:52→21:54)
[2017-09-06 08:00] VITALS: BP 157/74; PULSE 93; RESP 19; TEMP 98.8; O2SAT 95
[2017-09-06] MEDS ORDERED: ONDANSETRON HCL 4 MG/2 ML VIAL IV PUSH PRN (09:00)
[2017-09-06 09:16] LABS: BICARBONATE 22.6 MEQ/L (21.0-32.0); POTASSIUM 4.2 MEQ/L (3.5-5.1)
[2017-09-06] MEDS: CALCIUM ACETATE 667 MG CAP PO SCH ×3 (09:56→18:31)
[2017-09-06] MEDS: METOPROLOL TARTRATE 50 MG TAB PO SCH (09:56)
[2017-09-06] MEDS: CALCIUM CARBONATE 1.25 GM (CA 500 MG) TAB PO SCH ×2 (09:56→21:55)
[2017-09-06] MEDS: GABAPENTIN 100 MG CAP PO SCH ×2 (09:56→21:55)
[2017-09-06] MEDS: FERROUS SULFATE 325 MG (65 MG ELEMENTAL IRON) TAB PO SCH (09:56)
[2017-09-06] MEDS: SODIUM CHLORIDE 0.9% FLUSH 10 ML FLUSH IV FLUSH SCH ×2 (09:57→21:56)
[2017-09-06] MEDS: FAMOTIDINE 20 MG/2 ML VIAL IV PUSH SCH ×2 (09:57→21:55)
[2017-09-06] MEDS: HEPARIN SODIUM - SQ 10,000 UNITS/ML VIAL SQ SCH ×2 (09:57→21:56)
--- NOTE | 2017-09-06 10:49 | HHI.NPPN ---
Subjective History of Present Illness 51-year-old female with a past medical history of hypertension, diabetes mellitus, chronic kidney disease, anemia, gastroparesis, history of obstructive uropathy who has been following with urology and was brought to the hospital because of nausea, decreased oral intake and decreased level of consciousness. I was called to see the patient because of a very high BUN and creatinine and high potassium level. Additional Remarks Patient is alert, no SOB, eating well, has loose BM this AM, and has nausea. Review of Systems General Constitutional: Fatigue Cardiovascular Cardiac: Edema, ROSADO Objective Data Data 09/06/17 09/07/17 19:00 07:00 Intake Total 120 ml Balance 120 ml Intake Oral 120 ml Vital Signs Date Time Temp Pulse Resp B/P (MAP) Pulse Ox O2 Delivery O2 Flow Rate FiO2 09/06/17 08:00 98.8 93 19 157/74 (101) 95 09/06/17 00:00 97.8 73 20 162/70 (100) 98 09/05/17 20:00 97.6 72 20 156/82 (106) 97 09/05/17 16:00 96.6 89 18 149/78 (101) 98 09/05/17 12:00 97.9 92 18 186/87 (120) 95 -: 09/03/17 0415 09/06/17 0726 Physical Exam General Appearance: No Acute Distress, Comfortable Eyes Eye Exam: Pupils Equal Throat Throat Exam: Oral Mucosa [place] & Moist Neck Neck Exam: Neck Supple Pulmonary Resp Exam: No Distress, Rhonchi, Decreased Bases, Diminished Breath Sounds Cardiology CV Exam: Regular, Normal Sinus Rhythm Gastrointestinal/Abdomen GI Exam: Soft, Non-Tender, Bowel Sounds Present Extremeties Extremities Exam: Moderate Edema, Pitting Edema Neurologic Neuro Exam: Alert, Awake Psychiatric Psych Exam: Appropriate Responses Assessment/Plan Assessment Summary: SHELLEY/Acute Renal Failure, Dehydration, CKD Stage III Electrolyte Assessment: Metabolic Acidosis Problem List: (1) Diabetes mellitus ICD Codes: E11.9 - Type 2 diabetes mellitus without complications Status: Chronic (2) Hypertension ICD Codes: I10 - Essential (primary) hypertension Status: Acute (3) Dehydration ICD Codes: E86.0 - Dehydration Status: Acute (4) Neurogenic bladder ICD Codes: N31.9 - Neurogenic bladder Status: Acute (5) 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 BP is now better. Encourage oral intake. Avoid Nephrotoxins. Renal U.S noted. Calcium is improving, on Phoslo. Also on CaCo3. Avoid Nephrotoxins and follow BMP. Creatinine now improve to 4.8, K is normal. Noted about Psych evaluation and patient being non competent for decision making. If Creatinine continue to improve, can be discharged. Eloina Villa MD Sep 06, 2017 10:49
[2017-09-06 12:00] VITALS: BP 175/79; PULSE 75; RESP 20; TEMP 98.1; O2SAT 95
[2017-09-06 16:00] VITALS: BP 120/62; PULSE 77; RESP 17; TEMP 98.6; O2SAT 95
--- NOTE | 2017-09-06 18:10 | HHI.PR ---
Objective Vitals Vital Signs Date Time Temp Pulse Resp B/P (MAP) Pulse Ox O2 Delivery O2 Flow Rate FiO2 09/06/17 16:00 98.6 77 17 120/62 (81) 95 09/06/17 12:00 98.1 75 20 175/79 (111) 95 09/06/17 08:00 98.8 93 19 157/74 (101) 95 09/06/17 00:00 97.8 73 20 162/70 (100) 98 09/05/17 20:00 97.6 72 20 156/82 (106) 97 I/O 09/05/17 09/05/17 09/05/17 09/06/17 09/06/17 09/06/17 06:59 14:59 22:59 06:59 14:59 22:59 Intake Total 480 ml 480 ml 720 ml 120 ml Output Total 800 ml 1500 ml Balance -320 ml 480 ml -780 ml 120 ml Intake Oral 480 ml 480 ml 720 ml 120 ml Output Urine Total 800 ml 1500 ml # Voids 1 2 # Bowel Movements 1 0 0 Result Diagram: 09/03/17 0415 09/06/17 0726 Imaging Last Impressions Foot X-Ray 09/02/17 Signed Impressions: Service Date/Time: Saturday, September 02, 2017 08:03 - CONCLUSION: 1. Arthritic changes in the DIP joint of the second digit. 2. Soft tissue swelling. 3. No acute fracture identified. Kevin Brooke MD Chest X-Ray 09/01/17 0002 Signed Impressions: Service Date/Time: Friday, September 01, 2017 00:05 - CONCLUSION: No acute disease. Evangelist Ramirez Jr., MD Upper Extremity Ultrasound 09/01/17 Signed Impressions: Service Date/Time: Friday, September 01, 2017 13:06 - CONCLUSION: Normal examination. Morales Ziegler MD Renal Ultrasound 09/01/17 Signed Impressions: Service Date/Time: Friday, September 01, 2017 13:05 - CONCLUSION: 1. Stable sonographic appearance the kidneys with diffusely increased cortical echogenicity consistent with medical renal disease. 2. Stable right renal calculi with the largest measuring 1.4 cm in the inferior pole. No evidence for obstructive uropathy. Suhail Montano MD Carotid Artery Ultrasound 10/6/17 0000 Signed Impressions: Service Date/Time: Friday, September 01, 2017 08:35 - CONCLUSION: The peak systolic velocity in the internal carotid arteries is mildly elevated bilaterally, but the other hemodynamic parameters are within normal limits. The findings suggest less than 50%% stenosis. Evangelist Cuevas MD Objective Remarks General: Obese female in no acute distress. Heart: Regular rate and rhythm. No murmur. Lungs: Clear to auscultation bilaterally. No wheezes, rales, or rhonchi. Breathing is nonlabored. Abdomen: Soft, nontender, nondistended. Extremities: 1+ lower extremity edema. Psych: Alert, confused. Urinary Catheter: No Vascular Central Line Catheter: No A/P Problem List: (1) Syncope and collapse ICD Code: R55 - Syncope and collapse Status: Acute (2) Hyperkalemia ICD Code: E87.5 - Hyperkalemia Status: Acute (3) Acute on chronic renal failure ICD Code: N17.9 - Acute kidney failure, unspecified; N18.9 - Chronic kidney disease, unspecified (4) Metabolic acidosis ICD Code: E87.2 - Acidosis (5) Hypocalcemia ICD Code: E83.51 - Hypocalcemia Status: Acute Assessment and Plan 1. Acute on chronic renal failure: Likely secondary to severe dehydration. Appreciate nephrology recommendations. Per nephrology, patient can be discharged if creatinine continues to improve. 2. Hyperkalemia: Status post Kayexalate. Improved. 3. Encephalopathy: Likely metabolic. Patient appears to be at her baseline at this time. 4. Right hallux ulcerative wound: Status post podiatry evaluation. Had debridement at bedside on 09/03/17. X-ray does not show signs of osteomyelitis. Continue local wound care. 5. Per psychiatry, the patient does not have decision-making capacity to refuse medications will leave AMA. The patient's mother is her healthcare proxy. 6. DVT prophylaxis: Heparin, SCDs. Discharge Planning Anticipate discharge soon, when cleared by nephrology. Abdoulaye Lincoln MD Sep 06, 2017 18:10
[2017-09-06 20:00] VITALS: BP 145/66; PULSE 72; RESP 16; TEMP 97; O2SAT 96
[2017-09-07] VITALS: BP 121/78; PULSE 75; RESP 16; TEMP 96.6; O2SAT 98
[2017-09-07] MEDS: SODIUM BICARBONATE 650 MG TAB PO SCH ×3 (06:47→22:19)
[2017-09-07 07:41] LABS: BICARBONATE 25.3 MEQ/L (21.0-32.0); POTASSIUM 4.1 MEQ/L (3.5-5.1)
[2017-09-07 08:00] VITALS: BP 135/64; PULSE 78; RESP 18; TEMP 97.9; O2SAT 94
[2017-09-07] MEDS: FERROUS SULFATE 325 MG (65 MG ELEMENTAL IRON) TAB PO SCH (09:53)
[2017-09-07] MEDS: GABAPENTIN 100 MG CAP PO SCH ×2 (09:53→22:18)
[2017-09-07] MEDS: CALCIUM CARBONATE 1.25 GM (CA 500 MG) TAB PO SCH ×2 (09:53→22:19)
[2017-09-07] MEDS: METOPROLOL TARTRATE 50 MG TAB PO SCH (09:54)
[2017-09-07] MEDS: FAMOTIDINE 20 MG/2 ML VIAL IV PUSH SCH ×2 (09:57→22:18)
[2017-09-07] MEDS: HEPARIN SODIUM - SQ 10,000 UNITS/ML VIAL SQ SCH ×2 (09:59→22:19)
[2017-09-07] MEDS: SODIUM CHLORIDE 0.9% FLUSH 10 ML FLUSH IV FLUSH SCH ×2 (10:00→22:18)
[2017-09-07] MEDS: CALCIUM ACETATE 667 MG CAP PO SCH ×3 (10:02→18:23)
[2017-09-07 12:00] VITALS: BP 134/65; PULSE 83; RESP 20; TEMP 97.5; O2SAT 97
--- NOTE | 2017-09-07 13:19 | HHI.PR ---
Subjective Remarks Follow up renal failure. Patient states "I feel 100% better". She wants to go home soon. Denies chest pain, dyspnea, nausea, vomiting. Objective Vitals Vital Signs Date Time Temp Pulse Resp B/P (MAP) Pulse Ox O2 Delivery O2 Flow Rate FiO2 09/07/17 12:00 97.5 83 20 134/65 (88) 97 09/07/17 08:00 97.9 78 18 135/64 (87) 94 09/07/17 00:00 96.6 75 16 121/78 (92) 98 09/06/17 20:00 97.0 72 16 145/66 (92) 96 09/06/17 16:00 98.6 77 17 120/62 (81) 95 I/O 09/06/17 09/06/17 09/06/17 09/07/17 09/07/17 09/07/17 07:00 15:00 23:00 07:00 15:00 23:00 Intake Total 720 ml 120 ml 1200 ml 120 ml Output Total 1500 ml 1000 ml Balance -780 ml 120 ml 200 ml 120 ml Intake Oral 720 ml 120 ml 1200 ml 120 ml Output Urine Total 1500 ml 1000 ml # Voids 1 # Bowel Movements 0 2 Result Diagram: 09/03/17 0415 09/07/17 0621 Imaging Last Impressions Foot X-Ray 09/02/17 Signed Impressions: Service Date/Time: Saturday, September 02, 2017 08:03 - CONCLUSION: 1. Arthritic changes in the DIP joint of the second digit. 2. Soft tissue swelling. 3. No acute fracture identified. Kevin Brooke MD Chest X-Ray 09/01/17 0002 Signed Impressions: Service Date/Time: Friday, September 01, 2017 00:05 - CONCLUSION: No acute disease. Evangelist Ramirez Jr., MD Upper Extremity Ultrasound 09/01/17 Signed Impressions: Service Date/Time: Friday, September 01, 2017 13:06 - CONCLUSION: Normal examination. Morales Ziegler MD Renal Ultrasound 09/01/17 Signed Impressions: Service Date/Time: Friday, September 01, 2017 13:05 - CONCLUSION: 1. Stable sonographic appearance the kidneys with diffusely increased cortical echogenicity consistent with medical renal disease. 2. Stable right renal calculi with the largest measuring 1.4 cm in the inferior pole. No evidence for obstructive uropathy. Suhail Montano MD Carotid Artery Ultrasound 09/01/17 0000 Signed Impressions: Service Date/Time: Friday, September 01, 2017 08:35 - CONCLUSION: The peak systolic velocity in the internal carotid arteries is mildly elevated bilaterally, but the other hemodynamic parameters are within normal limits. The findings suggest less than 50%% stenosis. Evangelist Cuevas MD Objective Remarks General: Obese female in no acute distress. Heart: Regular rate and rhythm. No murmur. Lungs: Clear to auscultation bilaterally. No wheezes, rales, or rhonchi. Breathing is nonlabored. Abdomen: Soft, nontender, nondistended. Extremities: 1+ lower extremity edema. Psych: Alert, answers questions appropriately. Procedures None Urinary Catheter: No Vascular Central Line Catheter: No A/P Problem List: (1) Syncope and collapse ICD Code: R55 - Syncope and collapse Status: Acute (2) Hyperkalemia ICD Code: E87.5 - Hyperkalemia Status: Acute (3) Acute on chronic renal failure ICD Code: N17.9 - Acute kidney failure, unspecified; N18.9 - Chronic kidney disease, unspecified (4) Metabolic acidosis ICD Code: E87.2 - Acidosis (5) Hypocalcemia ICD Code: E83.51 - Hypocalcemia Status: Acute Assessment and Plan 1. Acute on chronic renal failure: Likely secondary to severe dehydration. Appreciate nephrology recommendations. Improving slowly. 2. Hyperkalemia: Status post Kayexalate. Improved. 3. Encephalopathy: Likely metabolic. Patient appears to be at her baseline at this time. 4. Right hallux ulcerative wound: Status post podiatry evaluation. Had debridement at bedside on 09/03/17. X-ray does not show signs of osteomyelitis. Continue local wound care. 5. Per psychiatry, the patient does not have decision-making capacity to refuse medications or leave AMA. The patient's mother is her healthcare proxy. 6. DVT prophylaxis: Heparin, SCDs. Discharge Planning Anticipate discharge soon, when cleared by nephrology. Pending further improvement in creatinine. Abdoulaye Lincoln MD Sep 07, 2017 13:19
--- NOTE | 2017-09-07 15:36 | HHI.NPPN ---
Subjective History of Present Illness 51-year-old female with a past medical history of hypertension, diabetes mellitus, chronic kidney disease, anemia, gastroparesis, history of obstructive uropathy who has been following with urology and was brought to the hospital because of nausea, decreased oral intake and decreased level of consciousness. I was called to see the patient because of a very high BUN and creatinine and high potassium level. Additional Remarks Patient is alert, no SOB, eating well, no vomiting, feeling better. Review of Systems General Constitutional: Fatigue Cardiovascular Cardiac: Edema, ROSADO Objective Data Data 09/07/17 09/08/17 19:00 07:00 Intake Total 120 ml Balance 120 ml Intake Oral 120 ml Vital Signs Date Time Temp Pulse Resp B/P (MAP) Pulse Ox O2 Delivery O2 Flow Rate FiO2 09/07/17 12:00 97.5 83 20 134/65 (88) 97 09/07/17 08:00 97.9 78 18 135/64 (87) 94 09/07/17 00:00 96.6 75 16 121/78 (92) 98 09/06/17 20:00 97.0 72 16 145/66 (92) 96 09/06/17 16:00 98.6 77 17 120/62 (81) 95 -: 09/03/17 0415 09/07/17 0621 Physical Exam General Appearance: No Acute Distress, Comfortable Eyes Eye Exam: Pupils Equal Throat Throat Exam: Oral Mucosa [place] & Moist Neck Neck Exam: Neck Supple Pulmonary Resp Exam: No Distress, Rhonchi, Decreased Bases, Diminished Breath Sounds Cardiology CV Exam: Regular, Normal Sinus Rhythm Gastrointestinal/Abdomen GI Exam: Soft, Non-Tender, Bowel Sounds Present Extremeties Extremities Exam: Moderate Edema, Pitting Edema Neurologic Neuro Exam: Alert, Awake Psychiatric Psych Exam: Appropriate Responses Assessment/Plan Assessment Summary: SHELLEY/Acute Renal Failure, Dehydration, CKD Stage III Electrolyte Assessment: Metabolic Acidosis Problem List: (1) Diabetes mellitus ICD Codes: E11.9 - Type 2 diabetes mellitus without complications Status: Chronic (2) Hypertension ICD Codes: I10 - Essential (primary) hypertension Status: Acute (3) Dehydration ICD Codes: E86.0 - Dehydration Status: Acute (4) Neurogenic bladder ICD Codes: N31.9 - Neurogenic bladder Status: Acute (5) 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 BP is now better. Encourage oral intake. Avoid Nephrotoxins. Renal U.S noted. Calcium is improving, on Phoslo. Also on CaCo3. Avoid Nephrotoxins and follow BMP. Creatinine is stable at 4.7, GFR is 10 ml/min., and K is normal. Noted about Psych evaluation and patient being non competent for decision making. If Creatinine continue to improve, can be discharged. Follow BMP in AM, if better, can be discharged with close follow up. Eloina Villa MD Sep 07, 2017 15:36
[2017-09-07 16:00] VITALS: BP 142/63; PULSE 65; RESP 19; TEMP 97.3; O2SAT 95
[2017-09-07] MEDS: MUPIROCIN 2% OINT 22 GM TUBE TOPICAL SCH (18:23)
[2017-09-07 20:00] VITALS: BP 142/63; PULSE 67; RESP 16; TEMP 96.6; O2SAT 98
[2017-09-08 00:19] VITALS: BP 139/73; PULSE 71; RESP 16; TEMP 96.9; O2SAT 95
[2017-09-08 05:59] LABS: AUTOMATED NEUTROPHIL # 2.7 TH/MM3 (1.8-7.7); BASOPHIL # 0.1 TH/MM3 (0-0.2); BASOPHIL % 1.1 % (0.0-2.0); EOSINOPHIL # 0.3 TH/MM3 (0-0.4); EOSINOPHIL % 6.2 % (0.0-4.0); HEMATOCRIT 29.1 % (35.0-46.0); HEMO FLAGS DIFF FINAL; LYMPH % 34.7 % (9.0-44.0); LYMPHOCYTE # 1.8 TH/MM3 (1.0-4.8); MEAN CELL VOLUME 87.2 FL (80.0-100.0); MEAN CORPUSCULAR HEMOGLOBIN 28.1 PG (27.0-34.0); MEAN CORPUSCULAR HGB CONC 32.3 % (32.0-36.0); MONO % 7.1 % (0.0-8.0); NEUT % 50.9 % (16.0-70.0); PLATELET COUNT 147 TH/MM3 (150-450); RED BLOOD COUNT 3.34 MIL/MM3 (4.00-5.30); RED CELL DISTRIBUTION WIDTH 14.8 % (11.6-17.2); WHITE BLOOD COUNT 5.3 TH/MM3 (4.0-11.0)
[2017-09-08] MEDS: SODIUM BICARBONATE 650 MG TAB PO SCH (05:59)
[2017-09-08 08:00] VITALS: BP 155/81; PULSE 79; RESP 19; TEMP 97.7; O2SAT 98
[2017-09-08 08:56] LABS: BICARBONATE 23.7 MEQ/L (21.0-32.0); MAGNESIUM 1.6 MG/DL (1.5-2.5); POTASSIUM 4.3 MEQ/L (3.5-5.1)
[2017-09-08] MEDS: CALCIUM CARBONATE 1.25 GM (CA 500 MG) TAB PO SCH (09:00)
--- NOTE | 2017-09-08 09:25 | HHI.NPPN ---
Subjective History of Present Illness 51-year-old female with a past medical history of hypertension, diabetes mellitus, chronic kidney disease, anemia, gastroparesis, history of obstructive uropathy who has been following with urology and was brought to the hospital because of nausea, decreased oral intake and decreased level of consciousness. I was called to see the patient because of a very high BUN and creatinine and high potassium level. Additional Remarks Patient is alert, no SOB, eating well, no vomiting, feeling better, want to go home. Review of Systems General Constitutional: Fatigue Cardiovascular Cardiac: Edema, ROSADO Objective Data Data 09/08/17 09/09/17 19:00 07:00 Intake Total 120 ml Balance 120 ml Intake Oral 120 ml Vital Signs Date Time Temp Pulse Resp B/P (MAP) Pulse Ox O2 Delivery O2 Flow Rate FiO2 09/08/17 08:00 97.7 79 19 155/81 (105) 98 09/08/17 00:19 96.9 71 16 139/73 (95) 95 09/07/17 20:00 96.6 67 16 142/63 (89) 98 09/07/17 16:00 97.3 65 19 142/63 (89) 95 09/07/17 12:00 97.5 83 20 134/65 (88) 97 -: 09/08/17 0503 09/08/17 0503 Physical Exam General Appearance: No Acute Distress, Comfortable Eyes Eye Exam: Pupils Equal Throat Throat Exam: Oral Mucosa [place] & Moist Neck Neck Exam: Neck Supple Pulmonary Resp Exam: No Distress, Rhonchi, Decreased Bases, Diminished Breath Sounds Cardiology CV Exam: Regular, Normal Sinus Rhythm Gastrointestinal/Abdomen GI Exam: Soft, Non-Tender, Bowel Sounds Present Extremeties Extremities Exam: Moderate Edema, Pitting Edema Neurologic Neuro Exam: Alert, Awake Psychiatric Psych Exam: Appropriate Responses Assessment/Plan Assessment Summary: SHELLEY/Acute Renal Failure, Dehydration, CKD Stage III Electrolyte Assessment: Metabolic Acidosis Problem List: (1) Diabetes mellitus ICD Codes: E11.9 - Type 2 diabetes mellitus without complications Status: Chronic (2) Hypertension ICD Codes: I10 - Essential (primary) hypertension Status: Acute (3) Dehydration ICD Codes: E86.0 - Dehydration Status: Acute (4) Neurogenic bladder ICD Codes: N31.9 - Neurogenic bladder Status: Acute (5) 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 BP is now better. Encourage oral intake. Avoid Nephrotoxins. Renal U.S noted. Calcium is improving, on Phoslo. Also on CaCo3. Avoid Nephrotoxins and follow BMP. Creatinine is stable at 4.7, GFR is 10 ml/min., and K is normal. Noted about Psych evaluation and patient being non competent for decision making. Creatinine now 4.1, has been improving daily. She is taking enough orally. Told to drink more fluid. Can be discharged from Nephrology. Follow up with me in 1-2 weeks. Eloina Villa MD Sep 08, 2017 09:25
[2017-09-08] MEDS: SODIUM CHLORIDE 0.9% FLUSH 10 ML FLUSH IV FLUSH SCH (09:39)
[2017-09-08] MEDS: CALCIUM ACETATE 667 MG CAP PO SCH (09:40)
[2017-09-08] MEDS: METOPROLOL TARTRATE 50 MG TAB PO SCH (09:40)
[2017-09-08] MEDS: FAMOTIDINE 20 MG/2 ML VIAL IV PUSH SCH (09:40)
[2017-09-08] MEDS: MUPIROCIN 2% OINT 22 GM TUBE TOPICAL SCH (09:41)
[2017-09-08] MEDS: HEPARIN SODIUM - SQ 10,000 UNITS/ML VIAL SQ SCH (09:41)
[2017-09-08] MEDS: GABAPENTIN 100 MG CAP PO SCH (09:41)
[2017-09-08] MEDS: FERROUS SULFATE 325 MG (65 MG ELEMENTAL IRON) TAB PO SCH (09:41)
[2017-09-08] MEDS ORDERED: CALC500T30 PO (11:32)
[2017-09-08] MEDS ORDERED: FAMO1TAB30 PO (11:32)
[2017-09-08] MEDS ORDERED: SODI650T PO (11:32)
[2017-09-08] MEDS ORDERED: METO-309 PO (11:32)
[2017-09-08] MEDS ORDERED: MUPI2OIN TOPICAL (11:32)
[2017-09-08] MEDS ORDERED: AMLO10 PO (11:32)
[2017-09-08] MEDS ORDERED: CALC667C PO (11:32)
--- NOTE | 2017-09-08 11:39 | HHI.DS ---
Discharge Summary Admission Date Sep 01, 2017 at 04:09 Discharge Date: Sep 08, 2017 Admitting Diagnosis Acute on Chronic Renal Failure, Severe life-threatening hyperkalemia, anion gap metabolic acidosis secondary to renal failure, Syncope likely cardiogenic because of electrolyte imbalance, and hypocalcemia . (1) Syncope and collapse ICD Code: R55 - Syncope and collapse Status: Acute (2) Hyperkalemia ICD Code: E87.5 - Hyperkalemia Status: Acute (3) Acute on chronic renal failure ICD Code: N17.9 - Acute kidney failure, unspecified; N18.9 - Chronic kidney disease, unspecified (4) Metabolic acidosis ICD Code: E87.2 - Acidosis (5) Hypocalcemia ICD Code: E83.51 - Hypocalcemia Status: Acute Procedures None Brief History - From Admission Written by Judith Avalos, acting as scribe for Dr. Gifford on 09/01/17 at 04:41. The patient's behavior is very childlike. She refused Kayexalate initially and had to be coaxed into taking it. The patient states she was felt like she was about to pass out. She states that her roommate witnessed the near-syncopal episode. She states she was sitting down when it occurred. Prior to episode she says she had blurry vision and dizziness. She's had episodes like this "a few times" over the past week. Reports some diarrhea - relates to lactose intolerance. Denies dysuria, hematuria, nausea, vomiting, abdominal pain, hematochezia or melena. Denies chest pain, shortness of breath, or palpitations. Recently requiring 3 pillows to sleep at night. . CBC/BMP: 09/08/17 0503 09/08/17 0503 Significant Findings Laboratory Tests Test 09/05/17 15:10 09/06/17 07:26 09/07/17 06:21 09/08/17 05:03 Blood Urea Nitrogen 61 MG/DL (7-18) 55 MG/DL (7-18) 50 MG/DL (7-18) 45 MG/DL (7-18) Creatinine 5.36 MG/DL (0.50-1.00) 4.83 MG/DL (0.50-1.00) 4.73 MG/DL (0.50-1.00) 4.19 MG/DL (0.50-1.00) Estimat Glomerular Filtration Rate 8 ML/MIN (>89) 10 ML/MIN (>89) 10 ML/MIN (>89) 11 ML/MIN (>89) Calcium Level 8.4 MG/DL (8.5-10.1) Chloride Level 109 MEQ/L (98-107) 108 MEQ/L (98-107) Red Blood Count 3.34 MIL/MM3 (4.00-5.30) Hemoglobin 9.4 GM/DL (11.6-15.3) Hematocrit 29.1 % (35.0-46.0) Platelet Count 147 TH/MM3 (150-450) Eosinophils (%) (Auto) 6.2 % (0.0-4.0) Imaging Last Impressions Foot X-Ray 09/02/17 Signed Impressions: Service Date/Time: Saturday, September 02, 2017 08:03 - CONCLUSION: 1. Arthritic changes in the DIP joint of the second digit. 2. Soft tissue swelling. 3. No acute fracture identified. Kevin Brooke MD Chest X-Ray 09/01/171 Signed Impressions: Service Date/Time: Friday, September 01, 2017 00:05 - CONCLUSION: No acute disease. Evangelist Ramirez Jr., MD Upper Extremity Ultrasound 09/01/17 Signed Impressions: Service Date/Time: Friday, September 01, 2017 13:06 - CONCLUSION: Normal examination. Morales Ziegler MD Renal Ultrasound 09/01/17 Signed Impressions: Service Date/Time: Friday, September 01, 2017 13:05 - CONCLUSION: 1. Stable sonographic appearance the kidneys with diffusely increased cortical echogenicity consistent with medical renal disease. 2. Stable right renal calculi with the largest measuring 1.4 cm in the inferior pole. No evidence for obstructive uropathy. Suhail Montano MD Carotid Artery Ultrasound 09/01/17 Signed Impressions: Service Date/Time: Friday, September 01, 2017 08:35 - CONCLUSION: The peak systolic velocity in the internal carotid arteries is mildly elevated bilaterally, but the other hemodynamic parameters are within normal limits. The findings suggest less than 50%% stenosis. Evangelist Cuevas MD PE at Discharge General: Obese female in no acute distress. Heart: Regular rate and rhythm. No murmur. Lungs: Clear to auscultation bilaterally. No wheezes, rales, or rhonchi. Breathing is nonlabored. Abdomen: Soft, nontender, nondistended. Extremities: 1+ lower extremity edema. Wound on right foot bandaged. Psych: Alert, answers questions appropriately. Pt update on day of discharge The patient has no complaints at this time. She wants to go home today. Denies chest pain, dyspnea, nausea, vomiting. Describes "slight pain" in her abdomen at times. Hospital Course The patient was admitted for evaluation of near syncopal episode. She was noted to have acute on chronic renal failure and hyperkalemia. Nephrology was consulted. She was continued on IV fluids. Potassium improved. The patient had persistent hypotension and confusion. Critical care medicine was consulted. The patient was given IV hydration. Blood pressure improved. Podiatry was consulted for management of right foot wound. The patient's creatinine improved slowly throughout the hospitalization. She was cleared for discharge by nephrology. Pt Condition on Discharge: Stable Discharge Disposition: Disch w/ Home Health Serv Discharge Time: > 30 minutes Discharge Instructions DIET: Follow Instructions for: Renal Failure Diet Activities you can perform: Regular-No Restrictions Follow up Referrals: Nephrology - 1 Week with Eloina Villa MD PCP Follow-up - 1 Week Podiatry - 2 Weeks with Saul Jimenes DPM New Medications: Famotidine (Famotidine) 10 Mg Tab 10 MG PO BID for Reflux, #60 TAB 0 Refills Amlodipine (Norvasc) 10 Mg Tab 10 MG PO DAILY for Blood Pressure Management, #30 TAB 0 Refills Calcium Acetate (Phosphate Bin (Calcium Acetate) 667 Mg Cap 667 MG PO TID for Nutritional Supplement, #90 CAP 0 Refills Metoprolol Tartrate (Lopressor) 50 Mg Tab 50 MG PO DAILY for Blood Pressure Management, #30 TAB 0 Refills Mupirocin Topical (Mupirocin Topical) 2 % Oint 1 APPLIC TOPICAL DAILY for Infection, #15 GM 0 Refills Oyster Shell (Calcium Oyster Shell) 500 Mg Calcium (1250 Mg) Tab 1000 MG PO Q12HR for Nutritional Supplement, #60 TAB 0 Refills Sodium Bicarbonate (Sodium Bicarbonate) 650 Mg Tab 650 MG PO Q8HR for Nutritional Supplement, #90 TAB 0 Refills Continued Medications: Calcitriol (Rocaltrol) 0.25 Mcg Cap 0.5 MCG PO DAILY for Electrolyte Replacement, #60 CAP Cholecalciferol (Vitamin D3) 50,000 Unit Cap 57337 UNITS PO Q7D for Nutritional Supplement, #16 CAP 0 Refills Ferrous Sulfate (Iron) 325 Mg Capsule.er 1 CAP PO DAILY, #30 CAP 2 Refills Gabapentin (Neurontin) 100 Mg Cap 100 MG PO BID for neuropathy, #60 CAP 1 Refill Nystatin Topical (Nystatin Topical) 100,000 unit/gm Cream 1 APPLIC TOPICAL Q12HR for Rash, #1 TUBE Quetiapine (Quetiapine) 25 Mg Tab 25 MG PO HS for depression, #60 TAB Discontinued Medications: Bethanechol (Bethanechol) 25 Mg Tab 25 MG PO Q8HR for Urinary Symptom Managemen, #90 TAB 3 Refills Lisinopril (Lisinopril) 2.5 Mg Tab 2.5 MG PO DAILY, #30 TAB 0 Refills Omeprazole (Omeprazole) 40 Mg Cap 40 MG PO DAILY for gastritis, #30 CAP 0 Refills Warfarin (Coumadin) 5 Mg Tab 5 MG PO DAILY@16 for dvt, #30 TAB 0 Refills Abdoulaye Lincoln MD Sep 08, 2017 11:39
--- NOTE | 2017-09-08 11:40 | HHI.DCPOC ---
Discharge Care Plan Diagnosis: (1) Right foot ulcer (2) CKD stage 3 due to type 2 diabetes mellitus (3) Acute renal failure (4) Dehydration (5) Diabetes mellitus (6) Hypertension Goals to Promote Your Health * To prevent worsening of your condition and complications * To maintain your health at the optimal level Directions to Meet Your Goals Take your medications as prescribed Follow your dietary instruction Follow activity as directed Keep your appointments as scheduled Take your immunizations and boosters as scheduled If your symptoms worsen call your PCP, if no PCP go to Urgent Care Center or Emergency Room Smoking is Dangerous to Your Health. Avoid second hand smoke Call the 24-hour hour crisis hotline for domestic abuse at Abdoulaye Lincoln MD Sep 08, 2017 11:40
[2017-09-08 12:00] VITALS: BP 142/67; PULSE 71; RESP 20; TEMP 97.5; O2SAT 100
[2017-09-08 17:54] LABS: MYELOPEROXIDASE LESS THAN 1.0 AI (<1.0); PROTEINASE-3 LESS THAN 1.0 AI (<1.0)
== END 2017-09-08 13:57 | disposition home health service (06) | DRG 673 ==
LOC: NEPC 23:48 → NEDA 09-01 04:09 → N03A 09-01 06:00 → N07A 09-02 16:45
PROVIDERS: ADMIT Family Medicine; ATTEND Family Medicine
PROC: 0JBQ0ZZ Excision of Right Foot Subcutaneous Tissue and Fascia, Open Approach (ICD-10-PCS; principal; 2017-09-03)
DX: N17.0 Acute kidney failure with tubular necrosis (principal); G93.41 Metabolic encephalopathy; E87.2 Acidosis; E11.22 Type 2 diabetes mellitus with diabetic chronic kidney disease; K31.84 Gastroparesis; E11.621 Type 2 diabetes mellitus with foot ulcer; Z68.42 Body mass index [BMI] 45.0-49.9, adult; N18.3 Chronic kidney disease, stage 3 (moderate); E11.649 Type 2 diabetes mellitus with hypoglycemia without coma; L97.519 Non-pressure chronic ulcer of other part of right foot with unspecified severity; E83.51 Hypocalcemia; E87.5 Hyperkalemia; E66.01 Morbid (severe) obesity due to excess calories; N31.9 Neuromuscular dysfunction of bladder, unspecified; R55 Syncope and collapse; D64.9 Anemia, unspecified; E86.0 Dehydration; Z86.718 Personal history of other venous thrombosis and embolism; Z79.01 Long term (current) use of anticoagulants; Z89.422 Acquired absence of other left toe(s); Z91.19 Patient's noncompliance with other medical treatment and regimen
CPT/HCPCS: 36600; 51702; 71010; 73630; 76775; 76937; 80048; 80053; 81001; 82550; 82552; 82805; 82948; 83605; 83735; 83880; 84100; 84155; 84300; 84484; 85025; 85610; 85730; 86021; 86160; 86225; 87077; 87086; 87186; 87205; 87641; 93005; 93306; 93880; 93971; 94150; 96372; 96374; 96375; J0610; J1630; J1644; J1815; J2060; J2405; J7030; J7070